=== PATIENT | female | born 1995 | race Caucasian/White ===

== ENCOUNTER 2023-04-02 12:25 | Outpatient (OUT) | payer MEDICAID, SELFPAY ==
--- NOTE | 2023-04-02 12:30 | US_ITS ---
[address] [address] Patient Name: BETTY RAMIREZ MRN: [id number] date: 1995 Sex: F Assigned Patient Location: US Current Patient Location: US Accession/Order Number: [id number] Exam Date: 04/02/2023 12:31 Report Date: 04/02/2023 15:32 At the request of: ALEXANDER CONLEY Procedure: US OB transvaginal EXAMINATION: US OB transvaginal HISTORY: MISSED MENSES COMPARISON: No relevant comparison available. FINDINGS: GESTATIONAL SAC: Present and normal appearing. YOLK SAC: Present and normal appearing. POLE: Present and normal appearing. CARDIAC: Present. UTERUS: Normal size and appearance. OVARIES: Right: Normal. Left: Not seen. CERVIX: 3.8 cm in length and closed. CUL-DE-SAC: Normal. OTHER: None. AGE BY LMP: 8 weeks 5 days PETER BY LMP: 11/07/2023 AGE BY US CRL: 8 weeks 2 days PETER BY US CRL: 11/10/2023 US/US OB transvaginal IMPRESSION: 1. Single live intrauterine . (Patient reportedly underwent imaging at another facility on 03/22/2023 with suspected twin .) Electronically authenticated by: RUBEN GALE Date: 04/02/2023 15:32
== END 2023-04-02 12:26 | disposition home or self-care (01) ==
LOC: US 12:26
PROVIDERS: Visit Provider Obstetrics & Gynecology
DX: Z34.91 Encounter for supervision of normal pregnancy, unspecified, first trimester (principal); N92.6 Irregular menstruation, unspecified
CPT/HCPCS: 76817

== ENCOUNTER 2023-04-30 09:01 | Outpatient (OUT) | payer MEDICAID, SELFPAY ==
[2023-04-30 10:08] LABS: Estimated Average Glucose 91 mg/dL; Glycohemoglobin A1C 4.8 % (4.5-6.2)
[2023-04-30 10:24] LABS: Basophils Percent Auto 0.5 % (0.2-2.0); Eosinophils Percent Auto 0.5 % (0.9-7.0); Hematocrit 37.4 % (36.0-48.0); Hemoglobin 13.1 g/dL (12.0-16.0); Immature Granulocytes Abs Auto 0.02 10^3/uL (0.00-0.03); Immature Granulocytes Pct Auto 0.3 % (0.0-0.5); Lymphocytes Absolute Auto 1.4 10^3/uL (1.2-3.8); Lymphocytes Percent Auto 20.5 % (20.5-60.0); Mean Corpuscular Hemoglobin 30.5 pg (26.7-34.0); Mean Corpuscular Volume 87.2 fL (81.0-99.0); Monocytes Absolute Auto 0.6 10^3/uL (0.3-0.8); Monocytes Percent Auto 9.3 % (1.7-12.0); Neutrophils Absolute Auto 4.6 10^3/uL (1.4-6.5); Neutrophils Percent Auto 68.9 % (43.0-75.0); Platelet Count 245 10^3/uL (150-450); Red Blood Count 4.29 10^6/uL (4.20-5.40); Red Cell Distribution Width 13.6 % (11.0-15.0); White Blood Count 6.6 10^3/uL (4.0-11.0)
[2023-04-30 10:40] LABS: Thyroid Stimulating Hormone 0.468 uIU/mL (0.358-3.740)
[2023-05-01 06:08] LABS: HBsAg Screen Negative (Negative); HCV Ab Non Reactive (Non Reactive); HIV Ab/p24 Ag Screen Non Reactive (Non Reactive)
[2023-05-01 10:09] LABS: Rapid Plasma Reagin, Quant Non Reactive titer (NonRea<1:1)
== END 2023-04-30 09:02 | disposition home or self-care (01) ==
LOC: LAB 09:07
PROVIDERS: Visit Provider Obstetrics & Gynecology
DX: Z34.80 Encounter for supervision of other normal pregnancy, unspecified trimester (principal); Z3A.00 Weeks of gestation of pregnancy not specified
CPT/HCPCS: 36415; 83036; 84443; 85025; 86592; 86762; 86803; 86850; 86900; 86901; 87086; 87340; 87389

== ENCOUNTER 2023-05-28 19:17 | Outpatient (REF) | payer MEDICAID, SELFPAY ==
[2023-06-04 13:08] LABS: Age Gdln ACOG Testing Note (.); IGP, rfx Aptima HPV ASCU Note (.)
== END 2023-05-28 19:18 | disposition home or self-care (01) ==
LOC: LAB 19:17
PROVIDERS: Visit Provider Physician Assistant
DX: Z12.4 Encounter for screening for malignant neoplasm of cervix (principal)
CPT/HCPCS: G0145

== ENCOUNTER 2023-07-02 10:31 | Outpatient (OUT) | payer MEDICAID, SELFPAY ==
--- NOTE | 2023-07-02 10:32 | US_ITS ---
[address] [address] Patient Name: BETTY RAMIREZ MRN: [id number] date: 1995 Sex: F Assigned Patient Location: US Current Patient Location: Accession/Order Number: [id number] Exam Date: 07/02/2023 10:33 Report Date: 07/02/2023 15:12 At the request of: ALEXANDER CONLEY Procedure: US OB cervical length EXAMINATION: US OB anatomy, US OB cervical length HISTORY: ANATOMY COMPARISON: No relevant comparison available. TECHNIQUE: Transabdominal sonographic examination was performed for obstetrical and evaluation. FINDINGS: Number: 1 Heart Rate: 148.0 bpm H.B. /min Amniotic Fluid Volume: Subjectively normal Placental Location: ANTERIOR with lower margin 1.5 cm from internal os. Cervix Length: 4.1 cm; closed. ANATOMY: Normal Structures -cerebellum, choroid plexus, cisterna magna, lateral cerebral ventricles, orbits, midline falx, hard palate, four-chamber heart, stomach, kidneys, bladder, umbilical cord insertion into abdomen, three-vessel cord, cervical spine, thoracic spine, lumbar spine, sacral spine, right upper extremity, left upper extremity, right lower extremity, left lower extremity. SUBOPTIMALLY SEEN: Cardiac outflow tracts ABNORMALITIES: None BIOMETRY: BPD: 4.6 cm 20 weeks 0 days; < 3% HC: 18.2 cm 20 weeks 4 days; 6% AC: 17.2 cm 22 weeks 1 days; 59% FL: 3.5 cm 21 weeks 1 days ; 23% EFW:432.0 grams; 35% FL/AC: 20.6 FL/BPD: 76.5 HC/AC: 1.1 GESTATIONAL AGE: Age by EDC: 21 weeks 5 days PETER by EDC: 11/07/2023 Age by current US: 21 weeks 0 days PETER by current US: 11/12/2023 US/US OB cervical length IMPRESSION: 1. Single live intrauterine with growth detailed above. 2. Biparietal diameter is < 3rd percentile. Electronically authenticated by: RUBEN GALE Date: 07/02/2023 15:12
--- NOTE | 2023-07-02 10:32 | US_ITS ---
[address] [address] Patient Name: BETTY RAMIREZ MRN: [id number] date: 1995 Sex: F Assigned Patient Location: US Current Patient Location: US Accession/Order Number: [id number] Exam Date: 07/02/2023 10:33 Report Date: 07/02/2023 15:12 At the request of: ALEXANDER CONLEY Procedure: US OB anatomy EXAMINATION: US OB anatomy, US OB cervical length HISTORY: ANATOMY COMPARISON: No relevant comparison available. TECHNIQUE: Transabdominal sonographic examination was performed for obstetrical and evaluation. FINDINGS: Number: 1 Heart Rate: 148.0 bpm H.B. /min Amniotic Fluid Volume: Subjectively normal Placental Location: ANTERIOR with lower margin 1.5 cm from internal os. Cervix Length: 4.1 cm; closed. ANATOMY: Normal Structures -cerebellum, choroid plexus, cisterna magna, lateral cerebral ventricles, orbits, midline falx, hard palate, four-chamber heart, stomach, kidneys, bladder, umbilical cord insertion into abdomen, three-vessel cord, cervical spine, thoracic spine, lumbar spine, sacral spine, right upper extremity, left upper extremity, right lower extremity, left lower extremity. SUBOPTIMALLY SEEN: Cardiac outflow tracts ABNORMALITIES: None BIOMETRY: BPD: 4.6 cm 20 weeks 0 days; < 3% HC: 18.2 cm 20 weeks 4 days; 6% AC: 17.2 cm 22 weeks 1 days; 59% FL: 3.5 cm 21 weeks 1 days ; 23% EFW:432.0 grams; 35% FL/AC: 20.6 FL/BPD: 76.5 HC/AC: 1.1 GESTATIONAL AGE: Age by EDC: 21 weeks 5 days PETER by EDC: 11/07/2023 Age by current US: 21 weeks 0 days PETER by current US: 11/12/2023 US/US OB anatomy IMPRESSION: 1. Single live intrauterine with growth detailed above. 2. Biparietal diameter is < 3rd percentile. Electronically authenticated by: RUBEN GALE Date: 07/02/2023 15:12
--- OUTSIDE RECORDS SUMMARY | 2023-07-02 10:42 | XMS_ITS | CCD ---
Author Name Unknown Address [address] [place] [address] Organization [facility] Care Team Providers Care Logistics Support Name Role Phone SHAHNAZ CORONA Admitting Unavailable SHAHNAZ CORONA Attending Unavailable SHAHNAZ CORONA Consulting Unavailable SHAHNAZ CORONA Admitting Unavailable SHAHNAZ CORONA Attending Unavailable MISC, DOCTOR Primary Care Unavailable LEFTY GALE Consulting Unavailable SHAHNAZ CORONA Consulting Unavailable SHAHNAZ CORONA Admitting Unavailable SHAHNAZ CORONA Attending Unavailable MISC, DOCTOR Primary Care Unavailable SHAHNAZ CORONA Consulting Unavailable SHAHNAZ CORONA Admitting Unavailable SHAHNAZ CORONA Attending Unavailable SHAHNAZ CORONA Consulting Unavailable SHAHNAZ CORONA Admitting Unavailable SHAHNAZ CORONA Attending Unavailable VANCE DING V Consulting Unavailable SHAHNAZ CORONA Consulting Unavailable SHAHNAZ CORONA Admitting Unavailable SHAHNAZ CORONA Attending Unavailable REQUEST, NONE LISTED Primary Care Unavailable SHAHNAZ CORONA Consulting Unavailable CAREN WHARTON Admitting Unavailable CAREN WHARTON Attending Unavailable SHAHNAZ CORONA Primary Care Unavailable CAREN WHARTON Consulting Unavailable CAREN WHARTON Admitting Unavailable CAREN WHARTON Attending Unavailable CAREN WHARTON Consulting Unavailable SHAHNAZ CORONA Admitting Unavailable SHAHNAZ CORONA Attending Unavailable SHAHNAZ CORONA Consulting Unavailable SHAHNAZ CORONA Admitting Unavailable SHAHNAZ CORONA Attending Unavailable SHAHNAZ CORONA Primary Care Unavailable LEFTY GALE Consulting Unavailable SHAHNAZ CORONA Consulting Unavailable SHAHNAZ CORONA Admitting Unavailable SHAHNAZ CORONA Attending Unavailable SHAHNAZ CORONA Consulting Unavailable FARRUKH PARK Unavailable SHAHNAZ CORONA Admitting Unavailable SHAHNAZ CORONA Attending Unavailable SHAHNAZ CORONA Consulting Unavailable SHAHNAZ CORONA Attending Unavailable ALEXANDER CONLEY Admitting Unavailable VANCE DING V Consulting Unavailable ALEXANDER CONLEY Consulting Unavailable SHAHNAZ CORONA Consulting Unavailable CAREN WHARTON Admitting Unavailable CAREN WHARTON Attending Unavailable CAREN WHARTON Consulting Unavailable LEFTY GALE Consulting Unavailable SHAHNAZ CORONA Consulting Unavailable ALEXANDER CONLEY Admitting Unavailable ALEXANDER CONLEY Attending Unavailable ALEXANDER CONLEY Consulting Unavailable SHAHNAZ CORONA Consulting Unavailable DOTAMARA CARMONA Consulting Unavailable SHAHNAZ CORONA Procedure Practitioner Unavailab le DO, TAMARA Brannon Procedure Practitioner Unavailab le CHLOE, SHAHNAZ Admitting Unavailable SHAHNAZ CORONA Attending Unavailable SHAHNAZ CORONA Admitting Unavailable SHAHNAZ CORONA Attending Unavailable SHAHNAZ CORONA Consulting Unavailable JOSE MARTEL Attending Unavailable Blunt, Caden M Primary Care Unavailable Frank, Deven Jacob Attending Unavailab le Frank, Deven Jacob Admitting Unavailab Armando Browning Attending Unavailable Armando Nieto Admitting Unavailable Blunt, Caden M Primary Care Unavailable Allergies Allergy Classification Reported Allergen(s) Allergy Type Date of Onset Reaction(s) Facility (1 source) No Known Medication Allergies; Translations: [No Known Medication Allergies] Propensity to adverse reactions to drug (disorder) [facility] Repository Problems Active Problems Problem Classification Problem Date Documented Da te Episodic/Chronic Anxiety disorders (1 source) Anxiety disorder, unspecified; Translations: [ANXIETY DISORDER UNSPECIFIED] Onset: 04-19-2020 Chronic Blindness and vision defects (1 source) Other visual disturbances; Translations: [OTHER VISUAL DISTURBANCES] Onset: 02-28-2020 Episodic Hypertension complicating ; childbirth and the puerperium (7 sources) Unspecified pre-existing hypertension complicating , third trimester; Translations: [Unspecified pre-existing hypertension complicating childbirth] Onset: 03-08-2020 Chronic Immunizations and screening for infectious disease (8 sources) Encounter for screening for other viral diseases; Translations: [Contact with and (suspected) exposure to other viral communicable diseases] Onset: 02-22-2020 Episodic Menstrual disorders (4 sources) Secondary amenorrhea; Translations: [SECONDARY AMENORRHEA] Onset: 09-02-2019 Chronic Mood disorders (1 source) Major depressive disorder, single episode, unspecified; Translations: [SILVINA DEPRESS D/O SINGLE EPIS UNS] Onset: 04-19-2020 Nonspecific chest pain (1 source) Other chest pain; Translations: [OTHER CHEST PAIN] Onset: 03-08-2020 Episodic OB-related trauma to perineum and vulva (1 source) First degree perineal laceration during delivery; Translations: [FIRST DEG PERINEAL LAC DUR DELIV] Onset: 04-19-2020 Episodic Other complications of ; puerperium affecting management of mother (1 source) Obesity complicating childbirth; Translations: [OBESITY COMPLICATING CHILDBIRTH] Onset: 04-19-2020 Chronic Other complications of ; puerperium affecting management of mother (1 source) Other mental disorders complicating childbirth; Translations: [[facility] MENTAL D/O COMP CHILDBIRTH] Onset: 04-19-2020 Episodic Other complications of (4 sources) Other specified related conditions, third trimester; Translations: [OT SPEC PREG RELATED COND 3RD TRI] Onset: 02-19-2020 Episodic Other lower respiratory disease (1 source) Shortness of breath; Translations: [SHORTNESS OF BREATH] Onset: 02-28-2020 Episodic Other nervous system disorders (1 source) Paresthesia of skin; Translations: [PARESTHESIA OF SKIN] Onset: 02-28-2020 Episodic Other nervous system disorders (1 source) Anesthesia of skin; Translations: [ANESTHESIA OF SKIN] Onset: 03-08-2020 Episodic Other nutritional; endocrine; and metabolic disorders (1 source) Obesity, unspecified; Translations: [OBESITY UNSPECIFIED] Onset: 04-19-2020 Chronic Other and delivery including normal (10 sources) Encounter for supervision of normal , unspecified, third trimester; Translations: [Encounter for supervision of normal , unspecified, second trimester] Onset: 09-09-2019 Episodic Residual codes; unclassified (1 source) 37 weeks gestation of ; Translations: [37 WEEKS GESTATION OF ] Onset: 04-09-2020 Residual codes; unclassified (1 source) 36 weeks gestation of ; Translations: [36 WEEKS GESTATION OF ] Onset: 04-01-2020 Residual codes; unclassified (1 source) 39 weeks gestation of ; Translations: [39 WEEKS GESTATION OF ] Onset: 04-19-2020 Residual codes; unclassified (1 source) 24 weeks gestation of ; Translations: [24 WEEKS GESTATION OF ] Onset: 01-08-2020 Residual codes; unclassified (1 source) 31 weeks gestation of ; Translations: [31 WEEKS GESTATION OF ] Onset: 03-08-2020 Residual codes; unclassified (1 source) 35 weeks gestation of ; Translations: [35 WEEKS GESTATION OF ] Onset: 03-21-2020 Past or Other Problems Problem Classification Problem Date Documented Da te Episodic/Chronic Other complications of (4 sources) Supervision of other high risk pregnancies, unspecified trimester; Translations: [SUP OTH HIGH RISK UNS TRI] Onset: 09-05-2019 Episodic Other screening for suspected conditions (not mental disorders or infectious disease) (4 sources) Encounter for screening for malignant neoplasm of cervix; Translations: [ENC SCREENING MALIG NEOPLASM CERV] Onset: 10-03-2019 Episodic Results Test Name Value Interpretation Reference Range Facility Coding Summaryon 06-30-2023 Coding Summary HTMLBase 64 UhsunjxpMFf7mRs+PGhlYW Q+XC2XWCDpC98tqNCtxL3b D3DIZOrZVrjvAHKJKHtMSn BcsfYyXL6zfJBfPGZg IC8+VN7vCDKrHfutsACuq9 Q3rVX2H72ccd5gIRwmkYB2 CNUxOpWkauwzd2okjJn5UZ cuNmluOyBt XYOiaO32UII7bK74Zw72dR CpeYAft3ysdHw2TpEwNAEk LBP7xIehJYbji4DaWUSuU0 3vwUIzv8V9 DLHdbAckdPUeMmQjjYP2uU 5oFYsnjpksa2qruzewVkn3 pq40nBKgy3L4oCI7P9Ybyx B9JBJupEFt PowxzRPUkE1zgvotn0lmoo trNrEnSROwHGg3RQj8OFUc aIobBuMxBP02ILD8VUPlnj CrL6HnTRIk gFqdNdW4g0D6Sn3OK5HMGo tdB2HDJCGQUCbkeDR+PC90 od22F1YrHqevLjc8VSQqXV Z7iVN8jX1r NFAhXBbmv8D3jXN6N5Vevw Zztc1hh8yiFIUyURwgN61u sYHll4F3CNWtcHY7KPWstE qhNlOsiB84 Oyc+HQAktKdbh3NfSooeo8 gac7vbjCp4NubdTBCnlgXa fSwsKCP1g9NkDq5fBDVctO N7bVC3oZ3e JyFnOlB9WAamW778IiXwqJ NuKropT87aH9VcnGY+PHRy Lqr6ZBUfxHowIJ1iQ4YgOK RpbmctbGVm rIfrSH4yCTMdvcvuNOFjlY 0fFEFgB6d0GdTxVaM2LVdr I8XkFRSbyrkwGj39lO8yIp BqSuI1ULbo U6WeukS8TPMgeIDlBQuxGN J1O70lb6Z8CTOpMBBrUJW6 pHR7rP5xdZqwkenxtRKazB sgdmVydGlj WOkgDParF654HXYmnVicZh NvZGluZyBEYXRlOiAgMTIv MTkvMjAyMzwvdGQ+PHRkIH A7cXplNUJg nYPxVEogTp4xwOucaYmqDW 2eNRDbcgvxHXEbaH2kTUEv nEQrkTljGT1tKINnpwhmq2 22EdPqMKJ9 NYPtrGXkT4GfkE6kSqPvSL VpBUJmO4JmxZXqAXuvB944 KUkiSaT9HIFaoeJbV5NwEM FsaWduOiB0 m2J9Bk7Fp4CtohvnH0EoxY RtLgElAfwkFOc2F9RaBruv dHI+UH18CGAaGQ13JWd1OU I2vFmaLKnf MXWnA0ZchG6xSyQxEUWnIH RkOyc+PHRhYmxlIHdpZHRo PWjaBYHoDmJkwMzoTW7sFl 9yZGVyLWNv oAotmDPqOxAwr2zhANEvJN blTH1odDorK0MhdEK9UKSl o0n1Gp80N06hT2YunGH+PG RhtAS0wBZ4 fC5zWgAdPvH2CPcxQ544Gc BqmZHhUhnyf4exy8xteOl5 LcW1SWQzxgVykMfmJRW2h4 NgJy34W51e IHdpZHRoPSIxNSUiIHZhbG tibr9luD4uFq8+PGNvbCB3 vNP0hT5zNmQlAsL2FVgeI8 49InRvcCIv Ldvku3bvy5klfDf5IyPzRQ IofiPkeFtiKDC6k3JjGk68 E1LryErej0CwJep1ar88qU Auv3S2xRX7 M7FaEMJtwjrgwOBlmJqfKK 7fPWUhhponVYJyxH4dVDSx R0h9UiEtCbX1LLmdS4Ajce Q7BFEdpJCh KPZpkPRFjC8lfbcxk7visz xyClZxQCVfPIk4DHb3QFNl iZzrRhOjXHX7NlL2WMH9oX DfiV1idWsu jvaicO3oUlb+DMN8dOZxoR CQGN1eSxjwkQZ+PHRkIHN0 eUdaCUhqZCChhO1tPNCpM1 f7GkAzGxM9 ETcfJ0SzrqG7ZGJqeFJrCX HgsBJNtS6bsvuqx5wgjolx YoOpMSZwFXo1RLb9NAHteU duOiBsZWZ0 DdA5NBO5oWPqyT2reYzmys yekE1wGoh+QmlydGggRGF0 FSe3Z4EuEwv3AZNrbPdwVC 0ncGFkZGlu Tc2dyZpfyEimDU5gOGHtkp cld399QsCgk3saMYGbjPNr AFdmMQP4U21vy0H5LFBbYU NrLOX0rJQ3 dX2pgLhaepzwdSHhuErdwn VerYvdORtvMSmsD717RQRu sSgkIwOaKGw6Q6CoZnj1NK LpwUyuJY4q vNBiDDreWj0qrRhqsMjgLD 9aUTYmaguak883LhZgz8qb GXLiuHUaGQrfGNS1D52md2 D2IXMpFKRf KCV2mHH6tJ1fhNgolupuxZ VmdDsgdmVydGljYWwtYWxp M780FIYqwGonKlWseHy3R2 YyAjy9BMFy aZcfGF2ruCKxYPfqRn3fhY xewGjbDS4jECWyldnbl899 QvJbv2ofLUSpdBMlDVjmND U1G44lo6D2 BVBvEUKdJJN9zXJ3dT8elB lnbjogbGVmdDsgdmVydGlj RIkyHOizB387DPLkxXkcEj BhdGllbnQg ZIzoAKp9B8GxCnbxvHP+PC 17YGHpEU71fELqzOPxb9oj bJk2WrVuBFOcGFE4cMasDK zms3CqRFZl R31jeMPbq2H0FYDzqViufG TfUgWwhVA8sR5eRMzmrbch n4rlnrywKxxgd0jlvn33aS 60B18nIPad ZHRoPSIzMCUiIHZhbGlnbj 6mdH3gNq8+UMSipSM1fIZ9 kF9uTMZdClZ9FAbzE155Ua RvcCIvPjxj k5nsn6kbwEy2GcK8TJBaqt QfzObjBLR5a9WnBc04F73m IHdpZHRoPSIyMCUiIHZhbG aume4cwU2w Ii8+CNFaaEU0yYO1tJ0fIi EvGxS3JFwbM934TdKqoFGx NzajG27vJ9UbnOX+PHRyPj h6CESgaNfd LA2lxWFjYPvyIw1jMBV0Jb FkQdNiGCuzN5RuDDXsdbkh wyhtkYQ2TPZsYEGjqA47Ne 9udDogMTBw qZMNeF3uhfmua5aubsymJu LxAPBsJZx8MXr3IKFihKvb KbIdBBX7IyL8ZNS1yHUkyF 1hbGlnbjog iI6eG0ImIZAfctssPr05xV 6lJaWcMcI7XWaoJwf+V0FH GeRNLGANLJNJIX1MAQBMLr wvdGQ+PHRk SIV7bQbbLTfdVZPxrY1eMD NsO7i0YtYeUyP0WRfiB5Jm TMZwxjljSl92vT5zEjKwQz U2ZLamW9Sl rjG5LZTlkHKdHHwpOBZ9O0 5tn3T7KGSdZWOrJXY4iYQ0 cB3usYerctdpzSPolUmqhg VydGljYWwt TCaeU627IGQkeAijOfYiQk F7RwO0MHk5D3AtOip6CFEj iAloQF5vvKSsSEsgVe1xwS grhWifBW8o UYJtjqepKWWgiK3pJNZntX SqhWilYO6yOCWxaitor345 ByRmRAD7MQUroIJqN9BhwT 9yOiAjMDAw CKYjG0KwaIQpMBqxQ213AW gbYnF4HDEzzeDbE4DbHSMe vUyoHvX9k3T0Yz2pNTSKVF FyczwvdGQ+ GKNjSRG1dSnoFCumPURahX 2eBRRxJ9k8UnTqUbZ4PYck H5JiJHHmvqmxLd33hR8sEb NaRiL5IMmz Q2BdvyU8XPEzrMYyBLjoWN K8B63ea1S2MCXkWNVqIMK0 iBM4rZ2naLdwafovxHMylV sgdmVydGlj YNvjZQrpX202IOLluAlhSp ZFTUFMRTwvdGQ+PHRkIHN0 xDiqLIjzGLUvdA2uFPAdE7 t2DtYqWxZ6 KFzeF7IpDGGebzrdVq70uS 6aLjYcEdR8QNfrE3UakmX0 LJCthZIgEVshALX1A74ku0 G8UAUoMWHo RHG6vGL5dX8jcVilwyevmG VmdDsgdmVydGljYWwtYWxp K024TCJwkYtuPzFuQWHzDO 5jeTwvdGQ+ ON09yl70U8XdWuxwVdq2YP PrVIH6nZM5gP6lWBEsOThz u9P0wLG8P2TrloSyen2lj7 xsYXBzZTog B05xvWLtg2T2GEEptAL4VT QoyPthJaWdiI23Tjb+PGNv oGisc7DbSphio2lzj6thxV a5XkMhZPJp cdZppBltCPE5t4BjIh73P7 9sIHdpZHRoPSIzMCUiIHZh zZpace0rwQ3bIu9+PGNvbC C1cPF5aQ9j BiGeEsP4STcoP679VbRijF JgZbbmy5eml4zpnGd5IbHn GEYotiEooRsyDRW6d5JsAg 92J3WosDjw j2GoDpk2fj64bVEqp1C6vM L4D3KcMNIgtvkilMLvoDfp PL1hTLQlsurhJONhkP7bUG OgD0l3JaBu LhS1NDlsB4GimhA3SYMzaN PhRAOdqFDLbN1mvivlx8in mvkbAgBrLOXgLTx1VUj0TZ FsaWduOiBs MEF9AnV9TOZ9nJCcgV0vmL gnadwguY5hQzz+FAp4k1pv dVUxED5reZN3PB39EL02cK Mwx8U8mQM4 U0ZxIIUcliiarprytFE0JF QvNGTylN24Pu9evUsbSy0n UMOhQCQ7OVFilUMdC1NuvK 9yOiAjMDAw DTEhI4GlsVDyIDqvS984EA onCmQ0HDOqxkAsO4HsSMPw dHmvGsN8y1J6Wa1LKA00DU 49ZA14rGTc x5I3jWM4L5DxTVMzzvxfbv kfmOB4PDQeJZKkoI44Av4v aLeqXv4nVZUdJCK9XADgfY IxV6JbsX1c DgHxJALhQKRzM8NxoAOoPN yiZ773LEgxNnS9RGHsmkWk L2VkVFFqdLwqAsJ0u8G1St 4KQh81LE83 VY36oYNxo6S5iPJ6O3CqXF EylqnyxqxbrIX2SLDoQCUu lP67Zu5hrKrqDj9yGZWoBJ Q8DJBynDOu U2NedY9yLmBzVBJwEULgB5 MowJVtWJkhT136YKyjKfJ5 IWRrxsHqU2TfVTWmdHonNu Y5q1K5Si4T RRdkmcb1C0RfXrlvcAA+PC 00VTIgBX87pHCnmYTst6rx kUm5AwDuXNXyUPV7pRbvBG saf5FcXQZw Y29 (more content not included)... Normal [facility] C Throaton 06-25-2023 C Throat Ordered by Vira. Normal throat sierra isolated No pathogens isolated [facility] Comment on above: Performed By: #### 7 [id number] ####[facility] (DEFAULT)[address] [place] [address] .QC SARS-CoV-2 (COVID-19)/Fl u/RSV (GeneXpert)on 06-23-2023 Internal Control Pass Normal [facility] Comment on above: Order Comment: Order ed by Vira.[[email or web address]] Performed By: #### 7 [id number] ####[facility] (DEFAULT)[address] [place] [id number] COVID/Flu/RSV (GeneXpert)on 06-23-2023 Flu A (GXpert COVFLURSV) Negative Normal Negative [facility] Comment on above: Performed By: #### 7 [id number] ####[facility] (DEFAULT)[address] [place] [id number] Flu B (GXpert COVFLURSV) Negative Normal Negative [facility] Comment on above: Performed By: #### 7 [id number] ####[facility] (DEFAULT)[address] [place] [address] RSV (GXpert COVFLURSV) Negative Normal Negative [facility] Comment on above: Performed By: #### 7 [id number] ####[facility] (DEFAULT)[address] [place] [address] SARS-CoV-2 (COVID-19) RNA MAYCO+probe Ql (Unsp spec) Negative Normal Negative [facility] Comment on above: Result Comment: Perf ormed by PCR methodology. Performed By: #### 7 [id number] ####[facility] (DEFAULT)[address] [place] [id number] ED Clinical Summaryon 2022 ED Clinical Summary [facility] Emergency Department [address] [place] [address] ED Clinical Summary PERSON INFORMATION Name: BETTY RAMIREZ Age: 27 Years Sex: FEMALE : 1995 MRN: Acct#: Visit Reason: Sinus Pain/Congestion; Cough; SORE THROAT, CONGESTION, VOMITING Arrival: 06/23/2023 09:52:37 Discharge: 06/23/2023 11:16:00 LOS: 000 01:24 Check In: 06/23/2023 09:52:37 Checkout:06/23/2023 11:16:00 Address: [facility] [address] [address] PCP: Caden Lauren MD PROVIDER INFORMATION Provider Role Assigned Unassigned Deven Marie DO ED Provider 06/23/2023 09:55:34 Nestor Wilson [employer] MANAGER Nurse 06/23/2023 10:25:25 VITALS INFORMATION Vital Sign Triage Latest Temperature Tympanic Temperature Temporal Artery Pulse Rate 107 bpm 107 bpm O2 Sat Respiratory Rate 18 br/min 18 br/min Blood Pressure /80 mmHg /80 mmHg MEDICAL INFORMATION Medications Given: Allergy Information: No Known Medication Allergies PHYSICIAN DOCUMENTATION Patient: BETTY RAMIREZ Age: 27 years Sex: FEMALE : 1995 Associated Diagnoses: Acute sinusitis Author: Deven Marie DO Basic Information Additional information: Chief Complaint from Nursing Triage Note : Chief Complaint 06/23/2023 10:19 EST Chief Complaint c/o cough and congestion since last . . History of Present Illness 27-year-old female to the emergency department chief complaint of cough congestion sore throat runny nose x 5 days. Patient states it is settling into her sinuses. Patient is approximately 20 weeks . Children being seen for similar. Review of Systems Constitutional symptoms: Negative except as documented in HPI. Skin symptoms: Negative except as documented in HPI. Eye symptoms: Negative except as documented in HPI. ENMT symptoms: Sore throat, nasal congestion, sinus pain. Respiratory symptoms: Cough, No shortness of breath, Cardiovascular symptoms: No chest pain, Gastrointestinal symptoms: Negative except as documented in HPI. Genitourinary symptoms: Negative except as documented in HPI. Musculoskeletal symptoms: Negative except as documented in HPI. Neurologic symptoms: Negative except as documented in HPI. Health Status Allergies: Allergic Reactions (Selected) No Known Medication Allergies. Medications: (Selected) Documented Medications Documented [place]isovi FE 08/01 oral tablet: 0 Refill(s) Multivitamins: 1, PO, Daily, 0 Refill(s). Past Medical/ Family/ Social History Medical history: Resolved Superficial laceration of scalp ([id number]): Resolved. Acute laryngopharyngitis ([id number]): Resolved.. Surgical history: No active procedure history items have been selected or recorded.. Family history: No family history items have been selected or recorded.. Social history: Social & Psychosocial Habits Alcohol 04/25/2019 Alcohol Use: Never 03/21/2023 Alcohol Use: Never Substance Use 04/25/2019 Substance use: Never 03/21/2023 Substance use: Never Tobacco 04/25/2019 Smoking tobacco use: Never (less than 100 in l 03/21/2023 Smoking tobacco use: Never tobacco user Electronic Cigarette/Vaping 04/25/2019 Electronic Cigarette Use: Never 03/21/2023 Electronic Cigarette Use: Never . Problem list: Active Problems (1) . Physical Examination Vital Signs Vital Signs 06/23/2023 10:19 EST Temperature Oral 36.9 DegC Peripheral Pulse Rate 107 bpm HI Respiratory Rate 18 br/min Systolic Blood Pressure 109 mmHg Diastolic Blood Pressure 80 mmHg Oxygen Therapy Room air . Measurements 06/23/2023 10:19 EST Height 149 cm Weight 64 kg Weight Dosing 64.000 kg Body Mass Index Measured 28.83 kg/m2 . General: Alert, no acute distress. Skin: Warm, dry. Head: Normocephalic, atraumatic. Neck: Supple. Eye: Pupils are equal, round and reactive to light, normal conjunctiva. Ears, nose, mouth and throat: Clear effusions bilateral TMs. Oropharynx mildly erythematous no edema no exudates no asymmetry. Tender to palpation over maxillary sinuses.. Cardiovascular: Regular rate and rhythm, No murmur. Respiratory: Lungs are clear to auscultation, respirations are non-labored. Musculoskeletal: No swelling, no deformity. Chest wall Gastrointestinal: Nontender, Non distended, Patient . Neurological: Alert and oriented to person, place, time, and situation, normal speech observed. Lymphatics: No lymphadenopathy. Psychiatric: Cooperative. Medical Decision Making Differential Diagnosis: Upper respiratory infection, viral syndrome, sinusitis, bronchitis, otitis media, COVID influenza. Results review: Lab results : Lab Flowsheet 06/23/2023 10:13 EST SARS-CoV-2(Covid19)PCR (GXpert COVFLURSV) Negative Streptococcus A Negative Flu A (GXpert COVFLURSV) Negative Flu B (GXpert COVFLURSV) Negative RSV (GXpert COVFLURSV) Negative . Reexamination/ Reevaluation 27-year (more content not included)... Normal [facility] ED Note - Physicianon 2022 ED Note - Physician Patient: BETTY RAMRIEZ Age: 27 years Sex: FEMALE : 1995 Associated Diagnoses: Acute sinusitis Author: Deven Marie DO Basic Information Additional information: Chief Complaint from Nursing Triage Note : Chief Complaint 06/23/2023 10:19 EST Chief Complaint c/o cough and congestion since last . . History of Present Illness 27-year-old female to the emergency department chief complaint of cough congestion sore throat runny nose x 5 days. Patient states it is settling into her sinuses. Patient is approximately 20 weeks . Children being seen for similar. Review of Systems Constitutional symptoms: Negative except as documented in HPI. Skin symptoms: Negative except as documented in HPI. Eye symptoms: Negative except as documented in HPI. ENMT symptoms: Sore throat, nasal congestion, sinus pain. Respiratory symptoms: Cough, No shortness of breath, Cardiovascular symptoms: No chest pain, Gastrointestinal symptoms: Negative except as documented in HPI. Genitourinary symptoms: Negative except as documented in HPI. Musculoskeletal symptoms: Negative except as documented in HPI. Neurologic symptoms: Negative except as documented in HPI. Health Status Allergies: Allergic Reactions (Selected) No Known Medication Allergies. Medications: (Selected) Documented Medications Documented [place]isovi FE 08/01 oral tablet: 0 Refill(s) Multivitamins: 1, PO, Daily, 0 Refill(s). Past Medical/ Family/ Social History Medical history: Resolved Superficial laceration of scalp ([id number]): Resolved. Acute laryngopharyngitis ([id number]): Resolved.. Surgical history: No active procedure history items have been selected or recorded.. Family history: No family history items have been selected or recorded.. Social history: Social & Psychosocial Habits Alcohol 04/25/2019 Alcohol Use: Never 03/21/2023 Alcohol Use: Never Substance Use 04/25/2019 Substance use: Never 03/21/2023 Substance use: Never Tobacco 04/25/2019 Smoking tobacco use: Never (less than 100 in l 03/21/2023 Smoking tobacco use: Never tobacco user Electronic Cigarette/Vaping 04/25/2019 Electronic Cigarette Use: Never 03/21/2023 Electronic Cigarette Use: Never . Problem list: Active Problems (1) . Physical Examination Vital Signs Vital Signs 06/23/2023 10:19 EST Temperature Oral 36.9 DegC Peripheral Pulse Rate 107 bpm HI Respiratory Rate 18 br/min Systolic Blood Pressure 109 mmHg Diastolic Blood Pressure 80 mmHg Oxygen Therapy Room air . Measurements 06/23/2023 10:19 EST Height 149 cm Weight 64 kg Weight Dosing 64.000 kg Body Mass Index Measured 28.83 kg/m2 . General: Alert, no acute distress. Skin: Warm, dry. Head: Normocephalic, atraumatic. Neck: Supple. Eye: Pupils are equal, round and reactive to light, normal conjunctiva. Ears, nose, mouth and throat: Clear effusions bilateral TMs. Oropharynx mildly erythematous no edema no exudates no asymmetry. Tender to palpation over maxillary sinuses.. Cardiovascular: Regular rate and rhythm, No murmur. Respiratory: Lungs are clear to auscultation, respirations are non-labored. Musculoskeletal: No swelling, no deformity. Chest wall Gastrointestinal: Nontender, Non distended, Patient . Neurological: Alert and oriented to person, place, time, and situation, normal speech observed. Lymphatics: No lymphadenopathy. Psychiatric: Cooperative. Medical Decision Making Differential Diagnosis: Upper respiratory infection, viral syndrome, sinusitis, bronchitis, otitis media, COVID influenza. Results review: Lab results : Lab Flowsheet 06/23/2023 10:13 EST SARS-CoV-2(Covid19)PCR ([facility] COV[facility]) Negative Streptococcus A Negative Flu A ([facility] COVFLUR[facility]) Negative Flu B ([facility] COVFLUR[facility]) Negative RSV ([facility] COVFLUR[facility]) Negative . Reexamination/ Reevaluation 27-year-old female to the emergency department URI symptoms. Family positive for influenza B. Discussed with patient with her being 20 weeks sick for 5 to 6 days and sinus pressure and congestion we will treat with amoxicillin. Impression and Plan Diagnosis Acute sinusitis ([id number] J01.90, Discharge, Medical) Plan Condition: Improved, Stable. Disposition: Discharged: Time 06/23/2023 10:59:00, to home. Prescriptions: Launch prescriptions Pharmacy: amoxicillin 875 mg oral tablet (Prescribe): 875 mg = 1 tab(s), Oral, BID, for 10 day(s), 20 tab(s), 0 Refill(s). Patient was given the following educational materials: Sinus Infection, Adult, Sinus Infection, Adult. Follow up with: Caden Lauren Within 3 to 5 days Call for follow up appointment Return if symptoms worsen Follow-up in 3 to 5 days unless symptoms are resolving. Counseled: Patient, Family, Regarding diagnosis, Regarding diagnostic results, Regarding treatment plan, Regarding prescription, Patient indicated understanding of instructio (more content not included)... Normal [facility] ED Note-Nursingon 06-23-2023 ED Note-Nursing private vehicle arrival with c/o cough congestion since last with multiple sick contacts at home. lcta. maintains ra saturation. rr even and unlabored. mub146hre. no distress. oriented to call light. s/o and childx2 at bedside. pending swabs Normal [facility] ED Patient Summaryon 023 ED Patient Summary [facility] - Emergency Department [address] [place] [address] PATIENT DISCHARGE INSTRUCTIONS Patient Information Name: BETTY RAMIREZ Age: 27 Years Date of : 1995 Reason For Visit: Sinus Pain/Congestion; Cough; SORE THROAT, CONGESTION, VOMITING Arrival Time: 06/23/2023 09:52:37 Primary Care Physician: Caden Lauren MD Attending Physician: Deven Marie DO Comment: Visit Diagnosis: Diagnoses This Visit Acute sinusitis (J01.90) Cough ([id number]) Sinus Pain/Congestion ([id number]) The Pharmacy at [facility] is open Thursday through Thursday from 9A to 6P and Thursday and Thursday from 9A to 5P Prescription Information: If you have been given a prescription for narcotics, seek immediate medical attention if you have any difficulty breathing or any sudden status changes such as confusion and sleepiness. If you or anyone you know is experiencing suicidal thoughts, mental health, alcohol and/or drug addiction problems; contact the Mental Health & Recovery Board [facility] 02/02 Crisis Hotline -Text 3XVDG ci [phone]. If you received any narcotics, sedation, or any other medication that causes drowsiness for the next 24 hours, unless otherwise directed: ? Do not drive a car. ? Do not operate machinery such as power tools, lawn mowers, drills, sewing machines, or stoves ? Avoid alcoholic beverages and drugs for allergies, nerves, or sleep ? Do not make important personal or business decisions or sign any legal documents With: Address: When: Caden Urbano [facility], [address] [address] [place] [address] Business (1) Within 3 to 5 days Comments: Call for follow up appointment Return if symptoms worsen Follow-up in 3 to 5 days unless symptoms are resolving Medication Information: The exam and treatment you received today in the [facility] Emergency Department were for an urgent problem and are not intended as complete care. It is important for you to follow up with a doctor, nurse practitioner, or physician?s commercial lending assistant for ongoing care. If your symptoms become worse or you do not improve as expected and you are unable to reach your usual health care provider, you should return to the Emergency Department, we are available 24 hours a day. For those patients who have received Radiology results, the interpretation of your X-ray as given to you by our Emergency Department physician is only a preliminary report. The Radiologist will review your films and if there is a change in the diagnosis you will be notified by phone. Please make sure you have provided a working phone number so we can reach you if necessary. In the event that you had a lab culture while you were a patient in the Emergency Department, you will be notified by phone if there is a need to change your antibiotic. Please make sure you have provided a working phone number so we can reach you if necessary. [facility] Emergency Department has provided you with a complete list of medications post discharge. Please inform your principal research economist/provider of your visit and for further instruction on these medications. Any specific questions regarding your chronic medications and dosages should be discussed with your primary care physician(s) and/or pharmacist. New Medications [id number], [address], [place] [id number], [phone] amoxicillin (amoxicillin 875 mg oral tablet) 1 tab(s) Oral (given by mouth) 2 times a day for 10 Days. Refills: 0. Additional medications on your home medication list not specifically addressed. Please contact the ordering physician if you have questions about these medications. ethinyl estradiol-norethindron e (Blisovi FE 08/01 oral tablet) multivitamin, ( Multivitamins) 1 Oral (given by mouth) every day. Visit Information Allergies: Substance Reaction Symptoms Type Comments No Known Medication Allergies Drug Vital Signs: Vitals and Measurements this Visit (last charted value for your 06/23/2023 visit) Vital Signs This Visit Temperature Oral: 36.9 DegC Peripheral Pulse Rate: 107 bpm Respiratory Rate: 18 br/min Systolic Blood Pressure: 109 mmHg Diastolic Blood Pressure: 80 mmHg Oxygen Therapy: Room air Measurements This Visit Height/Length Measured: 149 cm Weight Measured: 64 kg Weight Dosin.000 kg Body Mass Index: 28.83 kg/m2 Problems List: Problem Onset Comments Patient Education Sinus Infection, Adult A sinus infection, also called sinusitis, is inflammation of your sinuses. Sinuses are hollow spaces in the bones around your face. Your sinuses are located: ? Around your eyes. ? In the middle of your forehead. ? Behind your nose. ? In your cheekbones. Mucus normally drains out of your sinuses. W (more content not included)... Normal [facility] Strep Aon 06-23-2023 Strep procedure control Pass Normal [facility] Comment on above: Performed By: #### 7 [id number], [id number], [id number], [id number] ####[facility] (DEFAULT)[address] [place] [address] Streptococcus A Negative Normal Negative [facility] Comment on above: Performed By: #### 7 [id number], [id number], [id number], [id number] ####[facility] (DEFAULT)[address] [place] [address] Coding Summaryon 04-03-2023 Coding Summary [facility] ZmizdowjZOm2cZg+PGhlYW Q+OP4FQJPtN08uhDUcsJ9o I6FTBFwBFiohKENLQOwZCy TpiiVqCQ3qpBHyYMCe IC8+XU9uUJVhFsptsKVem2 Z8hNH3H67evo6sBVmjqEA8 CPHfEbBexuvuy3qnjUg4KT cuNmluOyBt JYFpeD02SAR1uJ21Kn62uK WtrCElp4udcLk6ZzDxPHRx WSU6dBbzJKjwi8OxKWLwD9 5xiRKrr8N2 WUBnvSkvyXCbVxRowPZ3nD 9cKQnphzbqj0jmldybKyo2 bj90gCZcu3J7pFJ0I9Vkqj O9TOUskXDn FtpfiMTDxE1bajusm3zohl sfHoEvJKMgESm9RUr3FTZb iHzeIuQxWU28BQX3KGSdzq CtJ7JmACBh aEhpMmB8d9F9Eh9MH4MMAq uvM3DYCVMXOHdecFY+PC90 jh32R0DuUqzgCho2PTJiQG D7aNV8iF3i LSRdWSwav1L5zFO9Q4Ivgg Ccif3ju0rlGIAkFQqoT33f lKKju0T0WCAnmUR4TUAgdW pqLzOfsP99 Oyc+AUCrqZeve4DhBufqj8 xww6advOd1LunzCJZsbfFo vEskCTV6b3VhHd1sKBHxqP L4rRB9iA0o ErOwDbM2PXumQ828TnDdkF QdYnzyS85dW9FzzIE+PHRy Ruv2LBAxmXanTN3lV5JtRJ RpbmctbGVm vGjlBZ9uTLUnsbbqCIQvkS 4hGRMtV3t6HfQpRrM2TJnd K2GxGGEljdjmJu64dH8iCh FqHgL1AFmn L3NlnhX5YGZuxUTjCArbNQ M6P62il9F3MVDjCRQqBTM4 mZP9hH3oqQnbioohiXShnE sgdmVydGlj VOyaAEfmR524YBMhvEonUi NvZGluZyBEYXRlOiAgMDkv MjIvMjAyMzwvdGQ+PHRkIH C5iGwnTTWf eLZiJSqzXe3yrZfkqZfdZL 9cSXGzdlhrBITrfG7sDWGg aEOqrKfoIN5yTZCxvulsg1 46TxLrCFD4 JQTjmCSqG5WspE9nMjNgUP CiYPTvN7TpxCEiMDwpF954 TJccSuO9ECPbbhIhX3GgFS FsaWduOiB0 o2E0Hs3Ex4MwslimQ8QouG TeHcSkYeieSKn2R7DbVrso dHI+KK06FTMkXA98DGr9IG L5pJxtKWpb AVYiU9OlsS4kOjIjNQFoWL RkOyc+PHRhYmxlIHdpZHRo RAqcRHTrSrPemRjaDX4pGj 9yZGVyLWNv jFjmqMGrGhHxs3urCKRzVT arYV6ckNbrV8PdoAA1JOAw e6a2Nq24L85lD7IvlCG+PG RphLW2vHI6 jC7fGaMxNfA1HNnjN863Gp OhrZBeUhcwr8ypi9wauKk2 RrB9TKPqmeIlpEjrRIC4z0 YbQq36P79s IHdpZHRoPSIxNSUiIHZhbG azin9slC7aFl4+PGNvbCB3 oBQ6tH6zGyWwZqZ5VTxzO7 49InRvcCIv Mlzzp8rdh7vmwBv2FwBnZT IknrGvfXbtBHF0t9XwEt15 I2VbuZyiy6TmDtu1fg16sU Gua3U2kDT7 Y8VlNCVonfkpnCPxsEvwUU 1aUNKxndbrGJDlsK2aPJKq F2g6UoUdDeB7IRzwA6Ogmt R6HPKpmVYe IDVsdQWGlI5usalet7wfpj hfWbMoRSWaKXm1MWa1BOVw hRraXqPlQDH4KfG6VLX0zS LfiA7ybZth gjtooL0aUfx+DTM3eTBzxX WNPA6hRinpkHQ+PHRkIHN0 oCaxLBliAPPjvX5nVIEdK2 f4DiKbIzA5 NUbxL8GnmcG7LRDauHZyOB CqcTUTvC7fztklq2vqkxxo VeSzZGCbLCy1KEb9REDleU duOiBsZWZ0 FeL5SYG0aOAarU6ikIjbrz kfiP6mSea+QmlydGggRGF0 KIs6J9LdNau3QPKquAwlXU 0ncGFkZGlu Ax0zcYpzeTiiCM5zMPStyq wkp678VyIyt8phUYBeqIUh UGagSMY9V20bk1Y5UZNhVC CmOGB2sYW5 yJ0yxKuqtzzrfITpyAszyc JnnDtaFSidVMucC140RFOf qBfoBcRoUYh6Z6ZcWhc0BH AzyIngCO2h pBJeXPlmAt9slFtapWbnZN 0wHFEwgepfc041EmUbi0lx ZWCjtPTxYUcfNIP8L26az2 E4AIMoZXXy RXX7yQX8sL9bqUhpemwekP VmdDsgdmVydGljYWwtYWxp J356IFGybDzcJiCzxEh3C0 KrJmc4QKDf uEsrVJ1ddVIgIDlhMj2hkQ rngPtwJK4aXAJsacalu971 LxVgn5ytXJStxTIdSDpeHC B5C62ur7Q3 IMWiXCIcNYO1cRO5xE9ldI lnbjogbGVmdDsgdmVydGlj BAklQFvkQ312CBEanTxfXu BhdGllbnQg UUjfWZg9E8UiYajktOY+PC 29VWYbGJ22vCKdyNNbt0rw sKi4VpEmSFEnUAN1mJuhTS rmf6NeLCDy V06waTQvo2S2RSBuwArzzJ UyXiHwmSQ3qZ8iYBbvfvsa o4vrfvkqYhckk1dgeq68jX 02E54cYJar ZHRoPSIzMCUiIHZhbGlnbj 4lrZ2zFo0+HHPtvSY2bSJ8 zJ2gBHRxJmH4GMiqJ263Mi RvcCIvPjxj u7vzl3oehGx2AeO1IRIeid ItiGloBBJ5r3GuZb23Q85c IHdpZHRoPSIyMCUiIHZhbG vzgd8jwA6z Ii8+OTUgtSO1zVO9eO5oMq MwHfI2TQfsR972CsNkpZBx HknsJ66qL0LmlJU+PHRyPj n4JAGqpOaa GN7drKKtVQonEi1yZRW3Ba WdDxDtSTfeE0SwIUFlssrt ehmvkMK4NKIdFQMdfO40Ut 9udDogMTBw yCDBkJ2dmouvq6edxpngPz NdURHtPEj3YVx2GUQrcOdt BnOpTMY1WuW3HGY8lFLamI 1hbGlnbjog lW2vW6FnIFCmoazvBu11tU 2hAoIqGyV8ZXjeCra+V0FH SyWKUFDKADKWNE2PWAPYUg wvdGQ+PHRk NDN5eTrsORscEWBftQ8nWP XrI6d3EnDsStY1ZEooP1Gc UZCftpouHn58rY4mLlYiLv E1BCxaP9Tu jyE9MODkrRXaCWreHEO9L6 8fz3L2ZLFwAELtWBY3qBI1 mO3hkEwxjjgbdBGxcUqpjl VydGljYWwt CPsaJ309PWTyuHfhXiItWh G1JrA1ADp4M6HvZgc1JNEh aZruVK0ncOZtBNynVq2yxN yepBsjJB8z RVEdmyxbPLAceK6hJEYdiT SubZsaVR7iESTolcyym996 ZlWdUKN6TYHoqXDnO5EkiT 9yOiAjMDAw NRKeS7DnoPWgQFlqS128LD cqMjF4LFBqsvXoF0AgAUUf sOjgTpB1a3C4Oj0gJYHNMP FyczwvdGQ+ GOOqVTU6cQkoCWnnZIIjaS 0aQBElW0p3GvXeCxV0EJss C9RjFVQtctxxDt03jQ8vDu ClCeK6BGvt O4TwebE5UYPsfMPqGAwxDN M8Z27mc6V8TFGmCBBfOOP4 qYI0mJ5lrUsbffyixAEjjB sgdmVydGlj HRhbQYgoX472FQRliEpwRo ZFTUFMRTwvdGQ+PHRkIHN0 mZleAZgaDOCvbL9zKIMxK5 k6MzAlMaF8 TAxgC2FiIZOwuhbhBq18oP 3hKlExMpB7YPffX7DlwdF8 CDJvwIBmQEnmDXB2K93xj5 H2XZWuRIXv ZKJ1pEV2yB6qcAftbrezaZ VmdDsgdmVydGljYWwtYWxp N435DHAupMbrZcWvRKRvVQ 5jeTwvdGQ+ NN93bn75O1GnMigpOjp7UF WlSVS5pLD1uF9aONFjXWup x6D8lWN5Q8ZzlfPcdq0ae7 xsYXBzZTog P80buZHwc5W9XFNoiJY7VI GpbGphNjMttI15Xqy+PGNv yLxkz6VaGcjqi3cjp1ksyJ i7RrJjVUGr xuSxmEhnRUQ3v6SpWh33D3 9sIHdpZHRoPSIzMCUiIHZh pAxawx7caT6vHa0+PGNvbC F4nHN2iZ7s MiWwQeP2ZAjzU312EbZbwC QhZatsi7thp0unkLw0LdRj JHGyodIfcEfhTJF2z5DeNq 98Y0BnkVjl b8UxBdr6ad65lDIdj3L5yT F8Q4GqUOSjqdpbxSYdkMqp TQ7gEPOvkatgGSUmoL5xUE XsN6m6IeZd AtL0FDtqA8PjvaH3WJHntV SxUUIvlIDGeX3shfecm5qx lljcJsHvPMWjSEq9XGb4GV FsaWduOiBs QIQ7QwV6GQU3dYNgtN0byZ rthbzwuY4wTlr+TOw7l8nc nECgIZ9ljKO5VQ26KC48aT Btj6S7pIA5 F8XaYADvvklkikzbtCJ5RG CkBFXxhQ20Ek3ylGedKy3y XPVkSLX8FJCfkRVyX9FpqT 9yOiAjMDAw WFMiJ5MssWEpPCmfL940GH cyByX8SHKwssDeV3PaFFNs uUnuSeZ4y8Y4Kj7ELP86OI 54OD38yYNo q9L4kWV3N8PpNYBqtqnzkw cjjTS6OHIuWPQvhU22Cs7w yCcqCp0pEIAsUYA2JEQinF QhX5WkmI3q JzOcVPNsHOOnE5CgjVJlIO gcX438LDscPjO8RCVbzvUu T2YyYYFofHwnPdE9f7V1Nc 0IRj15OM77 LA17mNRtt2O1jJM8O2NeMQ KprzewzybmvBV9RKHcALKd tC04Ct8fpNiePv9rEYCsOJ C8ZNTnnDRw V4EuyS6kAtJkQCQbIFHpU3 RzoQTeVGzlA934NZyvOzH2 TFYuitWnH2QoBYDriPtmFl R0m2L6Kb8X IFirfug1K2UwLxpygXW+PC 93ALTgSI83vENhmYFki2uj cFt7NpTaCNUxNCD1lXduCT oai7PfMWKw Y29 (more content not included)... Normal [facility] .Auto Diff 03-21-2023 Auto Rawlins % 10 % Normal 07-24 [facility] Comment on above: Performed By: #### 7 875373, [id number], 3363016, [id number], 8851106469, [id number], [id number] ####[facility] (DEFAULT)[address] [place] [address]4633 Baso Abs# 0.1 x10 Normal 0.0-0.2 [facility] Comment on above: Performed By: #### 7 125627, [id number], 9214673, 9203343468, 9549759587, 3747626974, 96976604 ####[facility] (DEFAULT)[address] [place] [address] 14485 Basophils/100 WBC (Bld) 0.9 % Normal 0.2-2.0 [facility] Comment on above: Performed By: #### 7 191125, [id number], 7397249, 4458530813, 4771046233, 6354468921, 32842372 ####[facility] (DEFAULT)[address] [place] [address] 74821 Eos Abs# 0.0 x10 Normal 0.0-0.4 [facility] Comment on above: Performed By: #### 7 278656, [id number], 2992013, 3827421703, 7311516519, 3941415176, 41872877 ####[facility] (DEFAULT)[address] [place] [address] 14928 Eosinophils/100 WBC (Bld) 0.4 % Low 0.9-4.0 [facility] Comment on above: Performed By: #### 7 856520, [id number], 6470007, 9996278818, 5397543596, 2274617946, 17106753 ####[facility] (DEFAULT)[address] [place] [address] 43121 Lymph Abs# 1.8 x10 Normal 1.3-2.9 [facility] Comment on above: Performed By: #### 7 943211, 7425649975, 8387325, 5677473696, 7152533788, 2054259195, 40683077 ####[facility] (DEFAULT)[address] [place] [address] 78295 Lymphocytes/100 WBC (Bld) 27 % Normal 14-48 [facility] Comment on above: Performed By: #### 7 447934, 2142265367, 3448050, 0295294738, 8124548307, 0569699330, 22783978 ####[facility] (DEFAULT)[address] [place] [address] Rawlins Abs# 0.6 x10 Normal 0.0-0.8 [facility] Comment on above: Performed By: #### 7 272288, 4949605887, 7147871, 2448541959, 3543009510, 9574067301, 73252771 ####[facility] (DEFAULT)[address] [place] [address] Neut Abs# 4.0 x10 Normal 1.5-9.2 [facility] Comment on above: Performed By: #### 7 171437, 3742331156, 3964332, 4418719052, 1271619148, 2803033454, 68029064 ####[facility] (DEFAULT)[address] [place] [address] Neutrophils/100 WBC (Bld) 61 % Normal 44-88 [facility] Comment on above: Performed By: #### 7 419299, 1063425638, 5873563, 8264737398, 2061465212, 2269164714, 09462631 ####[facility] (DEFAULT)[address] [place] [address] ABORhon 03-21-2023 ABO and Rh group Nom (Bld) Hx Check: Found Anti-A: 4+ Anti-B: 0 Anti-D: 4+ DCon: NT A1: 0 B: 4+ ABORh Interp: A POS Invalid Interpretation Code [facility] Comment on above: Performed By: #### 1 [id number], [id number] ####[facility] (DEFAULT)[address] [place] [address] CBC w/ Auto Diffon Erythrocyte distribution width (RBC) [Ratio] 13.4 % Normal 11.5-15.0 [facility] Comment on above: Performed By: #### 7 518914, 9891100103, 4712686, 4000010043, 2595649228, 1081377052, 88223198 ####[facility] (DEFAULT)[address] [place] [address] Hematocrit (Bld) [Volume fraction] 39.9 % Normal 33.7-40.4 [facility] Comment on above: Performed By: #### 7 870648, 8416551967, 3584723, 6023429299, 6827980121, 2601368415, 19296979 ####[facility] (DEFAULT)[address] [place] [address] Hemoglobin (Bld) [Mass/Vol] 13.8 g/dL Normal 11.3-15.9 [facility] Comment on above: Performed By: #### 7 997670, 7827173255, 9159702, 9242440356, 3209544075, 5991870481, 91097124 ####[facility] (DEFAULT)[address] [place] [address] Man Diff? Auto Invalid Interpretation Code [facility] Comment on above: Performed By: #### 7 885865, 2018874425, 2024088, 0585598928, 8908072660, 1896135899, 50778993 ####[facility] (DEFAULT)[address] [place] [address] 52947 MCH (RBC) [Entitic mass] 30 pg Normal 24-34 [facility] Comment on above: Performed By: #### 7 844660, 5527860599, 8193495, 0089316247, 0995271034, 9028672365, 47088081 ####[facility] (DEFAULT)[address] [place] [address] 90313 MCHC (RBC) [Mass/Vol] 34 g/dL Normal 26-37 [facility] Comment on above: Performed By: #### 7 162341, 3232096491, 1594766, 8919455740, 0881954062, 1609270249, 64069332 ####[facility] (DEFAULT)[address] [place] [address] 70454 MCV (RBC) [Entitic vol] 86 fL Normal 81-100 [facility] Comment on above: Performed By: #### 7 630463, 8481968652, 7330052, 8601836268, 4350035800, 7164519864, 99701967 ####[facility] (DEFAULT)[address] [place] [address] 43463 Platelet 245 x10 Normal 138-427 [facility] Comment on above: Performed By: #### 7 607243, 9299411619, 7222488, 7020698319, 4231166061, 8099308588, 68733645 ####[facility] (DEFAULT)[address] [place] [address] 44541 Platelet mean volume (Bld) [Entitic vol] 7.1 fL Normal 6.3-10.2 [facility] Comment on above: Performed By: #### 7 178656, 3727502494, 7922631, 6261937081, 2569205875, 6380030442, 87398514 ####[facility] (DEFAULT)[address] [place] [address] 72659 RBC 4.66 x10 Normal 3.70-5.30 [facility] Comment on above: Performed By: #### 7 268418, 7468603349, 7289518, 4556533816, 1438935411, 4381271963, 24283960 ####[facility] (DEFAULT)[address] [place] [address] 75131 WBC 6.5 x10 Normal 3.5-10.5 [facility] Comment on above: Performed By: #### 7 733210, 2529288561, 4035750, 8623394670, 9592274597, 2255749302, 93394351 ####[facility] (DEFAULT)[address] [place] [address] 21492 CMP Standardon 03-21-2023 eGFR Non AA >60 Invalid Interpretation Code [facility] Comment on above: Performed By: #### 7 640270, 9463501535, 4829545, 3250683493, 1655566163, 8772063185, 96970198 ####[facility] (DEFAULT)[address] [place] [address] 34833 eGFR AA >60 Invalid Interpretation Code [facility] Comment on above: Performed By: #### 7 815129, 8859167616, 7960993, 1912796507, 8758523176, 7582347449, 41146966 ####[facility] (DEFAULT)[address] [place] [address] 93887 Albumin [Mass/Vol] 4.3 g/dL Normal 3.5-5.0 [facility] Comment on above: Performed By: #### 7 515447, 5503257499, 1489590, 5561199704, 4359224741, 1016669664, 32003989 ####[facility] (DEFAULT)[address] [place] [address] 75766 Albumin/Globulin [Mass ratio] 1.2 {ratio} Low 1.4-2.6 [facility] Comment on above: Performed By: #### 7 186085, 6323536347, 0474327, 2893438297, 9595808676, 7630177823, 67698366 ####[facility] (DEFAULT)[address] [place] [address] 62732 Alk Phos 43 IU/L Normal 32-91 [facility] Comment on above: Performed By: #### 7 544754, 1710494069, 1957643, 3319801015, 2859388980, 2261148414, 04386004 ####[facility] (DEFAULT)[address] [place] [address] 07325 ALT [Catalytic activity/Vol] 23.0 U/L Normal 14.0-54.0 [facility] Comment on above: Performed By: #### 7 455039, 2548665389, 8774955, 5052226193, 2788360282, 8500894391, 08677289 ####[facility] (DEFAULT)[address] [place] [address] 39064 Anion gap [Moles/Vol] 9.7 mmol/L Normal 5.0-19.0 [facility] Comment on above: Performed By: #### 7 119302, 1842312323, 9153640, 7561039016, 2926340808, 8677432263, 65869917 ####[facility] (DEFAULT)[address] [place] [address] 96904 AST [Catalytic activity/Vol] 23 U/L Normal 15-41 [facility] Comment on above: Performed By: #### 7 024253, 2627208680, 2327548, 3788431617, 4315210213, 0987023348, 99029384 ####[facility] (DEFAULT)[address] [place] [address] 02880 Bili Total 0.8 mg/dL Normal 0.3-1.2 [facility] Comment on above: Performed By: #### 7 290388, 5711261342, 5375988, 9289879940, 7384825827, [id number], [id number] ####[facility] (DEFAULT)[address] [place] [address] 84703 Calcium [Mass/Vol] 8.8 mg/dL Low 8.9-10.3 [facility] Comment on above: Performed By: #### 7 474338, [id number], 8394070, [id number], [id number], [id number], [id number] ####[facility] (DEFAULT)[address] [place] [address] 35343 Chloride [Moles/Vol] 104 mmol/L Normal 101-111 [facility] Comment on above: Performed By: #### 7 944788, [id number], 0152410, [id number], [id number], [id number], 93423797 ####[facility] (DEFAULT)[address] [place] [address] 14701 CO2 [Moles/Vol] 22 mmol/L Normal 21-32 [facility] Comment on above: Performed By: #### 7 196218, [id number], 8629057, 3389497840, 3477888324, 5397322653, 72268795 ####[facility] (DEFAULT)[address] [place] [address] 21288 Creatinine [Mass/Vol] 0.45 mg/dL Low 0.60-1.30 [facility] Comment on above: Performed By: #### 7 428942, [id number], 8374684, [id number], 6346370000, [id number], [id number] ####[facility] (DEFAULT)[address] [place] [address] 19279 Globulin (S) [Mass/Vol] 3.5 g/dL Normal 1.5-4.3 [facility] Comment on above: Performed By: #### 7 160593, [id number], 3108897, 5225208229, 5242593389, [id number], [id number] ####[facility] (DEFAULT)[address] [place] [address] 25177 Glucose [Mass/Vol] 84.0 mg/dL Normal 74.0-118.0 [facility] Comment on above: Performed By: #### 7 869055, [id number], 4803675, 3176105039, 5140924052, 1918598807, 78092710 ####[facility] (DEFAULT)[address] [place] [address] 28672 Osmolality 262 mOsm/L Invalid Interpretation Code [facility] Comment on above: Performed By: #### 7 074288, [id number], 7034965, 7135890139, 5775186252, 2868032619, 21569912 ####[facility] (DEFAULT)[address] [place] [address] 53303 Potassium [Moles/Vol] 3.7 mmol/L Normal 3.6-5.1 [facility] Comment on above: Performed By: #### 7 369569, [id number], 0784510, 9117568921, 4433030813, 2914228530, 62664801 ####[facility] (DEFAULT)[address] [place] [address] 75758 Protein [Mass/Vol] 7.8 g/dL Normal 6.5-8.1 [facility] Comment on above: Performed By: #### 7 419958, [id number], 0368810, 4195949117, 0514269387, 5289342325, 79036199 ####[facility] (DEFAULT)[address] [place] [address] 60840 Sodium [Moles/Vol] 132.0 mmol/L Low 136.0-144.0 [facility] Comment on above: Performed By: #### 7 355221, [id number], 3123100, 1614262398, [id number], 0381446641, 24062871 ####[facility] (DEFAULT)[address] [place] [address] 08222 Urea nitrogen [Mass/Vol] 7 mg/dL Low 8-26 [facility] Comment on above: Performed By: #### 7 175700, [id number], 1462304, 4439133281, 4127448996, 5210784426, 97927352 ####[facility] (DEFAULT)[address] [place] [address] 32932 Urea nitrogen/Creatinine [Mass ratio] 15.5 mg/mg Normal 4.6-16.2 [facility] Comment on above: Performed By: #### 7 899115, [id number], 7382677, 1725094559, 0864537482, 5567027419, 79962687 ####[facility] (DEFAULT)[address] [place] [address] 60847 ED Clinical Summaryon 2022 ED Clinical Summary [facility] - Emergency Department [address] [place] [address] 05228 ED Clinical Summary PERSON INFORMATION Name: BETTY RAMIREZ Age: 27 Years Sex: FEMALE : 1995 MRN: Acct#: Visit Reason: Abdominal pain - ; Nausea; NAUSEA, ABD PAIN, 7 WEEKS Arrival: 03/21/2023 12:26:18 Discharge: 03/21/2023 17:51:00 LOS: 000 05:25 Check In: 03/21/2023 12:26:18 Checkout:03/21/2023 17:51:00 Address: [address] [place] [address] PCP: Caden Lauren MD PROVIDER INFORMATION Provider Role Assigned Unassigned Carol Blankenship PA-C ED PA 03/21/2023 12:47:55 Jocelyn RN, Alona Mckeon ED Nurse 03/21/2023 12:55:34 VITALS INFORMATION Vital Sign Triage Latest Temperature Tympanic Temperature Temporal Artery 37 DegC Pulse Rate O2 Sat 100 % 100 % Respiratory Rate 16 br/min 16 br/min Blood Pressure /93 mmHg /93 mmHg MEDICAL INFORMATION Medications Given: Medication Dose Route Sodium Chloride 0.9% intravenous solution (sodium chloride 0.9% bolus) 1000 mL IV ondansetron 4 mg IV Push Allergy Information: No Known Medication Allergies PHYSICIAN DOCUMENTATION DISCHARGE INFORMATION: Discharge Disposition: Home Discharge Location: Home PATIENT EDUCATION INFORMATION Instructions: Nausea and Vomiting, Adult, [id number]; Warning Signs During Follow-Up: With: Address: When: Caden Lauren MD [facility] [id number] [facility] [address] [place] [address] Within 3 to 5 days DIAGNOSIS: 1:Abdominal with intrauterine ; 2:Nausea and vomiting in Patient Understands: Yes - Patient/family/caregiv er verbalizes understanding of instructions given Comment: [facility] ED Note-Nursingon 03-21-2023 ED Note-Nursing Patient arrives to [facility] ED via private vehicle. Ambulated with a steady gait to ED room 8. Alert and oriented X4. C/O nausea, vomiting, and mid-left abdominal pain. Patient reports she believes she is approximately 7 week . Reports experiencing cramping and spotting approximately 1 weeks ago. History of preeclampsia. 3 Para 2. [facility] ED Patient Summaryon 023 ED Patient Summary [facility] - Emergency Department [address] [place] [id number] PATIENT DISCHARGE INSTRUCTIONS Patient Information Name: BETTY RAMIREZ Age: 27 Years Date of : 1995 Reason For Visit: Abdominal pain - ; Nausea; NAUSEA, ABD PAIN, 7 WEEKS Arrival Time: 03/21/2023 12:26:18 Primary Care Physician: Caden Lauren MD Attending Physician: Armando Nieto DO Comment: Visit Diagnosis: Diagnoses This Visit Abdominal pain - ([id number]) Abdominal with intrauterine (O00.01) Nausea ([id number]) Nausea and vomiting in (O21.9) The Pharmacy at [facility] is open Thursday through Thursday from 9A to 6P and Thursday and Thursday from 9A to 5P Prescription Information: If you have been given a prescription for narcotics, seek immediate medical attention if you have any difficulty breathing or any sudden status changes such as confusion and sleepiness. If you or anyone you know is experiencing suicidal thoughts, mental health, alcohol and/or drug addiction problems; contact the [facility] 02/02 Crisis Hotline -Text 2KXPE to 154404. If you received any narcotics, sedation, or any other medication that causes drowsiness for the next 24 hours, unless otherwise directed: ? Do not drive a car. ? Do not operate machinery such as power tools, lawn mowers, drills, sewing machines, or stoves ? Avoid alcoholic beverages and drugs for allergies, nerves, or sleep ? Do not make important personal or business decisions or sign any legal documents With: Address: When: Caden Lauren MD [facility] [id number] [address] Within 3 to 5 days Medication Information: The exam and treatment you received today in the [facility] Emergency Department were for an urgent problem and are not intended as complete care. It is important for you to follow up with a doctor, nurse practitioner, or physician?s commercial lending assistant for ongoing care. If your symptoms become worse or you do not improve as expected and you are unable to reach your usual health care provider, you should return to the Emergency Department, we are available 24 hours a day. For those patients who have received Radiology results, the interpretation of your X-ray as given to you by our Emergency Department physician is only a preliminary report. The Radiologist will review your films and if there is a change in the diagnosis you will be notified by phone. Please make sure you have provided a working phone number so we can reach you if necessary. In the event that you had a lab culture while you were a patient in the Emergency Department, you will be notified by phone if there is a need to change your antibiotic. Please make sure you have provided a working phone number so we can reach you if necessary. [facility] Emergency Department has provided you with a complete list of medications post discharge. Please inform your principal research economist/provider of your visit and for further instruction on these medications. Any specific questions regarding your chronic medications and dosages should be discussed with your primary care physician(s) and/or pharmacist. New Medications [facility] [id number], [address], [place] [id number], [phone] ondansetron (ondansetron 4 mg oral tablet) 1 tab(s) Oral Every 8 hours as needed for nausea/vomiting for 21 Days. Refills: 0. Additional medications on your home medication list not specifically addressed. Please contact the ordering physician if you have questions about these medications. multivitamin, ( Multivitamins) 1 Oral every day. Visit Information Allergies: Substance Reaction Symptoms Type Comments No Known Medication Allergies Drug Vital Signs: Vitals and Measurements this Visit (last charted value for your 03/21/2023 visit) Vital Signs This Visit Temperature Temporal Artery: 37 DegC Heart Rate Monitored: 78 bpm Respiratory Rate: 16 br/min Systolic Blood Pressure: 115 mmHg Diastolic Blood Pressure: 83 mmHg SpO2: 100 % Oxygen Therapy: Room air Measurements This Visit Height/Length Dosin.860 cm Height/Length Estimated: 149.860 cm Weight Dosin.700 kg Weight Estimated: 56.700 kg Problems List: Problem Onset Comments Patient Education Nausea and Vomiting, Adult Nausea is feeling that you have an upset stomach and that you are about to vomit. Vomiting is when food in your stomach forcefully comes out of your mouth. Vomiting can make you feel weak. If you vomit, or if you are not able to drink enough fluids, you may not have enough water in your body (get dehydrated). If you do not have enough water in your body, you may: ? Feel tired. ? Feel thirsty. ? Have a dry mouth. ? Have cracked (more content not included)... Normal [facility] Extra Greenon 03-21-2023 Tube Collected Yes Invalid Interpretation Code [facility] Comment on above: Performed By: #### 7 [id number], [id number], [id number], [id number], [id number], [id number] #### [facility] (DEFAULT) [address] [place] [address] Performed By: #### 7 [id number], [id number], [id number], [id number], [id number], [id number] ####[facility] (DEFAULT)[address] [place] [address] RhIG.on 03-21-2023 RhIG. No. Vials RhI RhIG Candidate?: No Date to Give: [id number] RhIG Status: NA [facility] Comment on above: Performed By: #### 1 [id number], [id number] ####[facility] (DEFAULT)[address] [place] [address] UA w Culture if Ind Standard on 03-21-2023 Breakpoint UA [facility] Comment on above: Performed By: #### 1 [id number] #### [facility] (DEFAULT) [address] [place] [address] Color (U) Yellow [facility] Comment on above: Performed By: #### 1 [id number] #### [facility] (DEFAULT) [address] [place] [address] Culture? Not Indicated Invalid Interpretation Code [facility] Comment on above: Result Comment: Resu lt created by rule GL_MAGR_ADD_UA_CULT1 Performed By: #### 1 [id number] #### [facility] (DEFAULT) [address] [place] [address] Glucose (U) [Mass/Vol] Negative [facility] Comment on above: Performed By: #### 1 [id number] #### [facility] (DEFAULT) [address] [place] [address] Ketones Ql (U) Negative [facility] Comment on above: Performed By: #### 1 [id number] #### [facility] (DEFAULT) [address] [place] [address] Micro? Not Indicated Invalid Interpretation Code [facility] Comment on above: Result Comment: Resu lt created by rule GL_MAGR_ADD_UA_MICRO Performed By: #### 1 [id number] #### [facility] (DEFAULT) [address] [place] [address] UA Bilirubin Negative Normal [facility] Comment on above: Performed By: #### 1 [id number] #### [facility] (DEFAULT) [address] [place] [address] UA Blood Negative Normal NEGATIVE [facility] Comment on above: Performed By: #### 1 [id number] #### [facility] (DEFAULT) [address] [place] [address] UA Clarity CLEAR Normal CLEAR [facility] Comment on above: Performed By: #### 1 [id number] #### [facility] (DEFAULT) [address] [place] [address] UA Leuk Est Negative Normal NEGATIVE [facility] Comment on above: Performed By: #### 1 [id number] #### [facility] (DEFAULT) [address] [place] [address] UA Nitrite Negative Normal NEGATIVE [facility] Comment on above: Performed By: #### 1 [id number] #### [facility] (DEFAULT) [address] [place] [address] UA pH 6.5 Normal 5-8 [facility] Comment on above: Performed By: #### 1 [id number] #### [facility] (DEFAULT) [address] [place] [address] UA Protein Negative Normal [facility] Comment on above: Performed By: #### 1 [id number] #### [facility] (DEFAULT) [address] [place] [address] UA Spec Grav <=1.005 Normal 1.001-1.035 [facility] Comment on above: Performed By: #### 1 [id number] #### [facility] (DEFAULT) [address] [place] [address] UA Urobilinogen 0.2 mg/dL Normal 0.2-1.0 [facility] Comment on above: Performed By: #### 1 [id number] #### [facility] (DEFAULT) [address] [place] [address] Urine Source Clean Catch Normal [facility] Comment on above: Performed By: #### 1 [id number] #### [facility] (DEFAULT) [address] [place] [address] US 1st Trimesteron 03-21-2023 US 1st Trimester CLINICAL HISTORY: Left lower quadrant pain. Early . Serum Beta hCG 111,000. COMPARISON: None available for this . TECHNIQUE: Transabdominal and transvaginal scanning was performed. FINDINGS: An approximately 2.3 cm gestational sac is present within the fundus of the central endometrial canal, without significant surrounding hemorrhage. An approximately 3 mm yolk sac and possibly 2 separate approximately 5.4 mm poles with cardiac activity in each measured at 165 and 126 bpm, and questionable triangular appearance of the marginal coronary, suggesting a monozygotic diamniotic twin corresponding to approximately 6 weeks 2 days plus or -1 week by crown-rump length. An approximately 3 mm simple cyst without surrounding thickened wall is noted within the central endometrial complex of the lower uterine segment, most likely an endometrial cyst or small loculated endometrial fluid, rather than an additional gestational sac. The normal-sized uterus is otherwise unremarkable in appearance. The cervix is closed measuring approximately 2.8 cm in longitudinal length. A small amount of simple free fluid is present within the pelvic cul-de-sac. Both ovaries appear within normal limits transabdominally, with an approximately 1.8 x 1.5 x 1.4 cm probable left ovarian corpus luteum cyst. IMPRESSION: SUSPECT EARLY TWIN OF APPROXIMATELY 6 WEEKS 2 DAYS, PLUS OR MINUS ONE WEEK. 3 MM ENDOMETRIAL CYST WITHIN THE LOWER UTERINE SEGMENT, OF DOUBTFUL CLINICAL SIGNIFICANCE. FOLLOW-UP IMAGING SUGGESTED; CLINICALLY WARRANTED. APPROXIMATELY 1.8 CM PROBABLE LEFT OVARIAN CORPUS LUTEUM CYST. SMALL VOLUME FREE FLUID IN THE PELVIS. Final Signed (Electronic Signature): Lefty Parker MD 03/22/23 10:43 a Technologist: ARTHUR Rivera [facility] Transvaginalon 03-21-2023 US Transvaginal CLINICAL HISTORY: Left lower quadrant pain. Early . Serum Beta hCG 111,000. COMPARISON: None available for this . TECHNIQUE: Transabdominal and transvaginal scanning was performed. FINDINGS: An approximately 2.3 cm gestational sac is present within the fundus of the central endometrial canal, without significant surrounding hemorrhage. An approximately 3 mm yolk sac and possibly 2 separate approximately 5.4 mm poles with cardiac activity in each measured at 165 and 126 bpm, and questionable triangular appearance of the marginal coronary, suggesting a monozygotic diamniotic twin corresponding to approximately 6 weeks 2 days plus or -1 week by crown-rump length. An approximately 3 mm simple cyst without surrounding thickened wall is noted within the central endometrial complex of the lower uterine segment, most likely an endometrial cyst or small loculated endometrial fluid, rather than an additional gestational sac. The normal-sized uterus is otherwise unremarkable in appearance. The cervix is closed measuring approximately 2.8 cm in longitudinal length. A small amount of simple free fluid is present within the pelvic cul-de-sac. Both ovaries appear within normal limits transabdominally, with an approximately 1.8 x 1.5 x 1.4 cm probable left ovarian corpus luteum cyst. IMPRESSION: SUSPECT EARLY TWIN OF APPROXIMATELY 6 WEEKS 2 DAYS, PLUS OR MINUS ONE WEEK. 3 MM ENDOMETRIAL CYST WITHIN THE LOWER UTERINE SEGMENT, OF DOUBTFUL CLINICAL SIGNIFICANCE. FOLLOW-UP IMAGING SUGGESTED; CLINICALLY WARRANTED. APPROXIMATELY 1.8 CM PROBABLE LEFT OVARIAN CORPUS LUTEUM CYST. SMALL VOLUME FREE FLUID IN THE PELVIS. Final Signed (Electronic Signature): Lefty Parker MD 03/22/23 10:43 a Technologist: ARTHUR Normal [facility] hCG Quantitativeon 3 hCG Quantitative 308833.0 mIU/mL High 0.0-0.6 [facility] Comment on above: Result Comment: Post -Menopausal Reference Range is: 0.1-11.6 mIU/mL Performed By: #### 7 [id number], [id number], [id number], [id number], [id number], [id number] ####[facility] (DEFAULT)[address] [place] [address] CBC AUTO DIFFon 04-12-2020 Basophils (Bld) [#/Vol] 0.0 103/ul Normal 0.0-0.1 [facility] Comment on above: Performed By: #### T NS #### [facility] [address] [place], [place] [address] Mikal Dempsey Basophils/100 WBC (Bld) 0.4 % Normal 0.2-2.0 [facility] Comment on above: Performed By: #### T NS #### [facility] [address] [place] [address] Mikal Roselyn Eosinophils (Bld) [#/Vol] 0.1 103/ul Normal 0.0-0.7 [facility] Comment on above: Performed By: #### T NS #### [facility] [address] [place] [address] Mikal Roselyn Eosinophils/100 WBC (Bld) 0.7 % Critically low 0.9-7.0 [facility] Comment on above: Performed By: #### T NS #### [facility] [address] [place] [address] Mikal Roselyn Erythrocyte distribution width (RBC) [Ratio] 13.4 % Normal 11.0-15.0 [facility] Comment on above: Performed By: #### T NS #### [facility] [address] [place] [address] Mikal Roselyn Hematocrit (Bld) [Volume fraction] 34.1 % Critically low 36.0-48.0 [facility] Comment on above: Performed By: #### T NS #### [facility] [address] [place] [address] Mikal Roselyn Hemoglobin (Bld) [Mass/Vol] 10.9 g/dL Critically low 12.0-16.0 [facility] Comment on above: Performed By: #### T NS #### [facility] [address] [place] [address] Mikal Roselyn IG # 0.05 10e3/ul Critically high 0.00-0.03 [facility] Comment on above: Performed By: #### T NS #### [facility] [address] [place] [address] Mikal Roselyn IG % 0.5 % Normal 0.0-0.5 [facility] Comment on above: Performed By: #### T NS #### [facility] [address] [place] [address] Mikal Roselyn Lymphocytes (Bld) [#/Vol] 2.4 103/ul Normal 1.2-3.8 [facility] Comment on above: Performed By: #### T NS #### [facility] [address] [place], [place] [id number] Mikal Roselyn Lymphocytes/100 WBC (Bld) 22.5 % Normal 20.5-60.0 [facility] Comment on above: Performed By: #### T NS #### [facility] [address] [place], [place] [id number] Mikal Roselyn MANUAL DIFF REQ NO Normal [facility] Comment on above: Performed By: #### T NS #### [facility] [address] [place], [place] [id number] Mikal Roselyn MCH (RBC) [Entitic mass] 27.7 pg Normal 26.7-34.0 [facility] Comment on above: Performed By: #### T NS #### [facility] [address] [place] [address] Mikal Roselyn MCHC (RBC) [Mass/Vol] 32.0 g/dL Normal 29.9-35.2 [facility] Comment on above: Performed By: #### T NS #### [facility] [address] [place], [place] [id number] Mikal Roselyn MCV (RBC) [Entitic vol] 86.5 fL Normal 81.0-99.0 [facility] Comment on above: Performed By: #### T NS #### [facility] [address] [place], [place] [id number] Mikal Roselyn Monocytes (Bld) [#/Vol] 1.4 103/ul Critically high 0.3-0.8 [facility] Comment on above: Performed By: #### T NS #### [facility] [address] [place], [place] [id number] Mikal Roselyn Monocytes/100 WBC (Bld) 12.4 % Critically high 1.7-12.0 [facility] Comment on above: Performed By: #### T NS #### [facility] [address] [place], [place] [id number] Mikal Roselyn Neutrophils (Bld) [#/Vol] 6.9 103/ul Critically high 1.4-6.5 [facility] Comment on above: Performed By: #### T NS #### [facility] [address] [place], [place] [id number] Mikal Roselyn Neutrophils/100 WBC (Bld) 63.5 % Normal 43.0-75.0 [facility] Comment on above: Performed By: #### T NS #### [facility] [address] [place], [place] [id number] Mikal Roselyn Platelet mean volume (Bld) [Entitic vol] 9.9 fL Normal 9.5-13.5 [facility] Comment on above: Performed By: #### T NS #### [facility] [address] [place], [place] [id number] Mikal Roselyn Platelets (Bld) [#/Vol] 194 103/ul Normal 150-450 [facility] Comment on above: Performed By: #### T NS #### [facility] [address] [place], [place] [id number] Mikal Roselyn RBC (Bld) [#/Vol] 3.94 106/ul Critically low 4.20-5.40 Th e [facility] Comment on above: Performed By: #### T NS #### [facility] [address] [place], [place] [id number] Mikal Roselyn WBC (Bld) [#/Vol] 10.9 103/ul Normal 4.0-11.0 [facility] Comment on above: Performed By: #### T NS #### [facility] [address] [place], [place] [address] Mikal Roselyn CBC AUTO DIFFon 04-10-2020 Basophils (Bld) [#/Vol] 0.0 103/ul Normal 0.0-0.1 [facility] Comment on above: Performed By: #### A 1C #### [facility] [address] [place], [place] [id number] Mikal Roselyn Basophils/100 WBC (Bld) 0.2 % Normal 0.2-2.0 [facility] Comment on above: Performed By: #### A 1C #### [facility] [address] [place] [address] Mikal Roselyn Eosinophils (Bld) [#/Vol] 0.0 103/ul Normal 0.0-0.7 [facility] Comment on above: Performed By: #### A 1C #### [facility] [address] [place], [place] [id number] Mikal Roselyn Eosinophils/100 WBC (Bld) 0.2 % Critically low 0.9-7.0 [facility] Comment on above: Performed By: #### A 1C #### [facility] [address] [place], [place] [id number] Mikal Roselyn Erythrocyte distribution width (RBC) [Ratio] 13.3 % Normal 11.0-15.0 [facility] Comment on above: Performed By: #### A 1C #### [facility] [address] [place], [place] [id number] Mikal Roselyn Hematocrit (Bld) [Volume fraction] 34.8 % Critically low 36.0-48.0 [facility] Comment on above: Performed By: #### A 1C #### [facility] [address] [place], [place] [id number] Mikal Roselyn Hemoglobin (Bld) [Mass/Vol] 11.4 g/dL Critically low 12.0-16.0 [facility] Comment on above: Performed By: #### A 1C #### [facility] [address] [place], [place] [address] Mikal Roselyn IG # 0.04 10e3/ul Critically high 0.00-0.03 [facility] Comment on above: Performed By: #### A 1C #### [facility] [address] [place], [place] [address] Mikal Roselyn IG % 0.5 % Normal 0.0-0.5 [facility] Comment on above: Performed By: #### A 1C #### [facility] [address] [place], [place] [id number] Mikal Roselyn Lymphocytes (Bld) [#/Vol] 1.4 103/ul Normal 1.2-3.8 [facility] Comment on above: Performed By: #### A 1C #### [facility] [address] [place], [place] [address] Mikal Roselyn Lymphocytes/100 WBC (Bld) 16.3 % Critically low 20.5-60.0 [facility] Comment on above: Performed By: #### A 1C #### [facility] [address] [place], [place] [address] Mikal Roselyn MANUAL DIFF REQ NO Normal [facility] Comment on above: Performed By: #### A 1C #### [facility] [address] [place], [place] [address] Mikal Roselyn MCH (RBC) [Entitic mass] 27.7 pg Normal 26.7-34.0 [facility] Comment on above: Performed By: #### A 1C #### [facility] [address] [place] [address] Mikalrena Hensleyen MCHC (RBC) [Mass/Vol] 32.8 g/dL Normal 29.9-35.2 [facility] Comment on above: Performed By: #### A 1C #### [facility] [address], [place] [address] Mikal Roselyn MCV (RBC) [Entitic vol] 84.5 fL Normal 81.0-99.0 [facility] Comment on above: Performed By: #### A 1C #### [facility] [address] [place] [address] Mikal Roselyn Monocytes (Bld) [#/Vol] 1.1 103/ul Critically high 0.3-0.8 [facility] Comment on above: Performed By: #### A 1C #### [facility] [address] [place], [place] [address] Mikal Roselyn Monocytes/100 WBC (Bld) 12.6 % Critically high 1.7-12.0 [facility] Comment on above: Performed By: #### A 1C #### [facility] [address] [place], [place] [address] Mikal Roselyn Neutrophils (Bld) [#/Vol] 6.1 103/ul Normal 1.4-6.5 [facility] Comment on above: Performed By: #### A 1C #### [facility] [address] [place] [address] Mikal Roselyn Neutrophils/100 WBC (Bld) 70.2 % Normal 43.0-75.0 [facility] Comment on above: Performed By: #### A 1C #### [facility] [address] [place] [address] Mikal Roselyn Platelet mean volume (Bld) [Entitic vol] 10.3 fL Normal 9.5-13.5 [facility] Comment on above: Performed By: #### A 1C #### [facility] [address] [place], [place] [id number] Mikal Roselyn Platelets (Bld) [#/Vol] 232 103/ul Normal 150-450 [facility] Comment on above: Performed By: #### A 1C #### [facility] [address] [place], [place] [id number] Mikal Roselyn RBC (Bld) [#/Vol] 4.12 106/ul Critically low 4.20-5.40 [facility] Comment on above: Performed By: #### A 1C #### [facility] Laboratory [address] [place], [place] [id number] Mikal Roselyn WBC (Bld) [#/Vol] 8.7 103/ul Normal 4.0-11.0 [facility] Comment on above: Performed By: #### A 1C #### [facility] Laboratory [address] [place], [place] [id number] Mikal Roselyn DRUG SCREEN RAPID (URINE)on 04-10-2020 AMP Negative Normal NEGATIVE [facility] Comment on above: Performed By: #### A 1C #### [facility] [address] [place] [address] Mikal Roselyn BAR Negative Normal NEGATIVE [facility] Comment on above: Performed By: #### A 1C #### [facility] [address] [place], [place] [id number] Mikal Roselyn BUP Negative Normal NEGATIVE [facility] Comment on above: Performed By: #### A 1C #### [facility] [address] [place], [place] [id number] Mikal Roselyn BZO Negative Normal NEGATIVE [facility] Comment on above: Performed By: #### A 1C #### [facility] [address] [address] Mikal Roselyn MADDY Negative Normal NEGATIVE [facility] Comment on above: Performed By: #### A 1C #### [facility] [address] [address] Mikal Roselyn CUT-OFFS SEE BELOW Normal [facility] Comment on above: Result Comment: AMP (Amphetamine): 500ng/mL, BAR (Barbituates): 200 ng/mL, BZO (Benzodiazepines): 150 ng/mL, BUP (Buprenorphine): 10 ng/mL, MADDY (Cocaine): 150 ng/mL, mAMP (Methamphetamine): 500 ng/mL, MTD (Methadone): 200 ng/mL, OPI (Opiates): 100 ng/mL or 2000 ng/mL, OXY (Oxycodone): 100 ng/mL, PCP (Phencyclidine): 25 ng/mL, PPX (Propoxyphene): 300 ng/mL, THC (Cannabinoids): 50 ng/mL, TCA (Trycyclic Antidepressants): 300 ng/mL Performed By: #### A 1C #### [facility] [address] [place] [address] Mikal Roselyn DRUG CUT HEADER DRUG CLASS TEST SYST EM CUT-OFF CONCENTRATIONS ARE FOLLOWS: Normal [facility] Comment on above: Performed By: #### A 1C #### [facility] [address] [place] [address] Mikal Roselyn mAMP Negative Normal NEGATIVE [facility] Comment on above: Performed By: #### A 1C #### [facility] [address] [address] Mikal Roselyn MTD Negative Normal NEGATIVE [facility] Comment on above: Performed By: #### A 1C #### [facility] [address] [place] [address] Mikal Roselyn OPI Negative Normal NEGATIVE [facility] Comment on above: Performed By: #### A 1C #### [facility] [address] [place] [address] Mikal Roselyn OXY Negative Normal NEGATIVE [facility] Comment on above: Performed By: #### A 1C #### [facility] [address] [place] [address] Mikal Roselyn PCP Negative Normal NEGATIVE [facility] Comment on above: Performed By: #### A 1C #### [facility] [address] [place] [address] Mikal Roselyn PPX Negative Normal NEGATIVE [facility] Comment on above: Performed By: #### A 1C #### [facility] [address] [place] [address] Mikal Roselyn TCA Negative Normal NEGATIVE [facility] Comment on above: Performed By: #### A 1C #### [facility] [address] [place] [address] Mikal Roselyn THC Negative Normal NEGATIVE [facility] Comment on above: Performed By: #### A 1C #### [facility] [address] [place] [address] Mikal Roselyn TYPE AND SCREENon 04-10-2020 TYPE AND SCREEN Negative Normal [facility] Comment on above: Performed By: #### A 1C #### [facility] [address] [place] [address] Mikal Roselyn COVID-19 PCRon 04-06-2020 SARS-CoV-2, MAYCO Not Detected Normal Not Detected The [facility] Comment on above: Result Comment: This nucleic acid amplification test was developed and its performance characteristics determined by [facility]. Nucleic acid amplification tests include PCR and TMA. This test has not been FDA cleared or approved. This test has been authorized by FDA under an Emergency Use Authorization (EUA). This test is only authorized for the duration of time the declaration that circumstances exist justifying the authorization of the emergency use of in vitro diagnostic tests for detection of SARS-CoV-2 virus and/or diagnosis of COVID-19 infection under section 564(b)(1) of the Act, 21 U.S.C. 360bbb-3(b) (1), unless the authorization is terminated or revoked sooner. When diagnostic testing is negative, the possibility of a false negative result should be considered in the context of a patient's recent exposures and the presence of clinical signs and symptoms consistent with COVID-19. An individual without symptoms of COVID-19 and who is not shedding SARS-CoV-2 virus would expect to have a negative (not detected) result in this assay. Performed By: #### A 1C #### [facility] [address] [place] [address] DRUG SCREEN RAPID (URINE)on 04-05-2020 AMP Negative Normal NEGATIVE [facility] Comment on above: Performed By: #### A 1C #### [facility] [address] [place] [address] Mikal Roselyn BAR Negative Normal NEGATIVE [facility] Comment on above: Performed By: #### A 1C #### [facility] [address] [place] [address] [facility] BUP Negative Normal NEGATIVE [facility] Comment on above: Performed By: #### A 1C #### [facility] [address] [place] [address] [facility] BZO Negative Normal NEGATIVE [facility] Comment on above: Performed By: #### A 1C #### [facility] [address] [place] [address] MADDY Negative Normal NEGATIVE [facility] Comment on above: Performed By: #### A 1C #### [facility] [address] [place] [address] CUT-OFFS SEE BELOW Normal [facility] Comment on above: Result Comment: AMP (Amphetamine): 500ng/mL, BAR (Barbituates): 200 ng/mL, BZO (Benzodiazepines): 150 ng/mL, BUP (Buprenorphine): 10 ng/mL, MADDY (Cocaine): 150 ng/mL, mAMP (Methamphetamine): 500 ng/mL, MTD (Methadone): 200 ng/mL, OPI (Opiates): 100 ng/mL or 2000 ng/mL, OXY (Oxycodone): 100 ng/mL, PCP (Phencyclidine): 25 ng/mL, PPX (Propoxyphene): 300 ng/mL, THC (Cannabinoids): 50 ng/mL, TCA (Trycyclic Antidepressants): 300 ng/mL Performed By: #### A 1C #### [facility] [address] [address] Mikal Roselyn DRUG CUT HEADER DRUG CLASS TEST SYST EM CUT-OFF CONCENTRATIONS ARE FOLLOWS: Normal [facility] Comment on above: Performed By: #### A 1C #### [facility] [address] [place] [address] Mikal Roseyln mAMP Negative Normal NEGATIVE [facility] Comment on above: Performed By: #### A 1C #### [facility] [address] [place] [address] Mikal Roselyn MTD Negative Normal NEGATIVE [facility] Comment on above: Performed By: #### A 1C #### [facility] [address] [place] [address] Mikal Roselyn OPI Negative Normal NEGATIVE [facility] Comment on above: Performed By: #### A 1C #### [facility] [address] [place] [address] Mikal Roselyn OXY Negative Normal NEGATIVE [facility] Comment on above: Performed By: #### A 1C #### [facility] [address] [place] [address] Mikal Roselyn PCP Negative Normal NEGATIVE [facility] Comment on above: Performed By: #### A 1C #### [facility] [address] [place] [address] Mikal Roselyn PPX Negative Normal NEGATIVE [facility] Comment on above: Performed By: #### A 1C #### [facility] [address] [place] [address] Mikal Roselyn TCA Negative Normal NEGATIVE [facility] Comment on above: Performed By: #### A 1C #### [facility] [address] [place] [address] Mikal Roselyn THC Negative Normal NEGATIVE [facility] Comment on above: Performed By: #### A 1C #### [facility] [address] [place] [address] Mikal Roselyn US PREG BIOPHY W NON STRESSo n 04-03-2020 US PREG BIOPHY W NON STRESS EXAMINATION: US PREG BIOPHY W NON STRESS HISTORY: Pre-existing hypertension complicating , childbirth and puerperium COMPARISON: No relevant comparison available. TECHNIQUE: Ultrasound biophysical profile was performed in the radiology department. non-reactive stress testing was performed by nursing staff in the birthing center. FINDINGS: BREATHING MOVEMENTS: 2.0 GROSS BODY MOVEMENTS: 2.0 TONE: 2.0 QUALITATIVE AMNIOTIC FLUID VOLUME: 2.0 PRESENTATION: Cephalic HEART RATE: 147.3 bpm AMNIOTIC FLUID VOLUME: 11.7 cm GESTATIONAL AGE: 37 weeks 6 days IMPRESSION: 1. Total biophysical profile score: 8.0 2. Numerous calcifications within the placenta consistent with an aging placenta. Electronically authenticated by: LEFTY GALE Date: 2020-04-03 13:48 Normal The [facility] US PREG BIOPHY W NON STRESSo n 03-27-2020 US PREG BIOPHY W NON STRESS EXAMINATION: US PREG BIOPHY W NON STRESS HISTORY: Pre-existing hypertension complicating , childbirth and puerperium COMPARISON: No relevant comparison available. TECHNIQUE: Ultrasound biophysical profile was performed in the radiology department. non-reactive stress testing was performed by nursing staff in the birthing center. FINDINGS: BREATHING MOVEMENTS: 2.0 GROSS BODY MOVEMENTS: 2.0 TONE: 2.0 QUALITATIVE AMNIOTIC FLUID VOLUME: 2.0 PRESENTATION: Cephalic HEART RATE: 145.9 bpm H.B./min AMNIOTIC FLUID VOLUME: 14.0 cm cm GESTATIONAL AGE: 36 weeks 6 days CONCLUSION: Total biophysical profile score: 8.0 Electronically authenticated by: VANCE DING Date: 2020-03-27 13:51 Normal The [facility] CHLAMYDIA/GONOCOCCUS MAYCO ( AB/URINE/PAPon 03-23-2020 Chlamydia trachomatis, MAYCO Negative Normal Negative [facility] Comment on above: Performed By: #### A 1C #### [facility] [address] [address] Mikal Dempsey Neisseria gonorrhoeae, MAYCO Negative Normal Negative [facility] Comment on above: Performed By: #### A 1C #### [facility] [address] [place], [place] [address] Mikal Dempsey US PREG BIOPHY W NON STRESSo n 03-22-2020 US PREG BIOPHY W NON STRESS PROCEDURE: US PREG BIOPHY W NON STRESS, US PREG GROWTH HISTORY: 24-year-old female with . Evaluation of biophysical profile. COMPARISON STUDY: 03/12/2020 is available for correlation. TECHNIQUE: Sonographic imaging of the pelvis was performed for evaluation. FINDINGS: A single fetus is noted in cephalic presentation. Cardiac activity of 136 bpm is noted. BPD: 8.97 cm. HC: 32.17 cm. AC: 32.3 cm. FL: 6.9 cm. HC/AC: 21.37. FL/BPD: 77.0 %. FL/AC: 21.4 %. Estimated weight of approximately 2841 g or approximately 6 lbs. 4 oz. This is within the 53rd percentile. Full review of anatomy is not performed. movement, tone, and breathing and fluid are appropriate. Amniotic fluid index of approximately 16.27 cm is noted. Estimated gestational age of approximately 36 weeks 1 day. IMPRESSION: Single live intrauterine in cephalic presentation with biometric data as above. Cardiac activity of 136 bpm. Total biophysical profile score of 8/8. Formal obstetrical evaluation and follow-up is suggested as clinically appropriate. Electronically authenticated by: FARRUKH PARK Date: 2020-03-22 02:34 Normal The [facility] GROUP B STREP CULTUREon S. agalactiae Ag Ql (Unsp spec) Culture Observations: Negative for Group B Streptococcus. Normal The [facility] Comment on above: Performed By: #### A 1C #### [facility] [address] [place] [address] Mikal Dempsey PREG GROWTHon 03-12-2020 PREG GROWTH EXAMINATION: US PREG GROWTH HISTORY: Pre-existing hypertension complicating , childbirth and puerperium COMPARISON: No relevant comparison available. FINDINGS: Heart Rate: 137 bpm Number: One Position: Cephalic Amniotic Fluid Volume: 14.8 cm; normal range Maximum Vertical Pocket: 4.5 cm BIOMETRY: BPD: 9.11 cm; 37 weeks 0 days HC: 31.6cm; 35 weeks, 3 days AC: 31.9 cm cm; 35 weeks 5 days FL: 6.6 cm; 38 weeks, 0 days EFW: 2666 g (47% by AUA, 66% by expected) FL/AC: 0.21 FL/BPD: 0.72 HC/AC: 0.99 GESTATIONAL AGE: Age by EDC: 34 weeks, 5 days PETER by EDC: 04/18/2020 Age by US: 35 weeks, 3 days PETER by US: 04/13/2020 IMPRESSION: 1. Single live intrauterine with growth detailed above. Electronically authenticated by: LEFTY GALE Date: 2020-03-12 09:32 Normal The [facility] COVID-19 PCRon 02-24-2020 SARS-CoV-2, MAYCO Not Detected Normal Not Detected The [facility] Comment on above: Result Comment: This test was developed and its performance characteristics determined by [facility]. This test has not been FDA cleared or approved. This test has been authorized by FDA under an Emergency Use Authorization (EUA). This test is only authorized for the duration of time the declaration that circumstances exist justifying the authorization of the emergency use of in vitro diagnostic tests for detection of SARS-CoV-2 virus and/or diagnosis of COVID-19 infection under section 564(b)(1) of the Act, 21 U.S.C. 360bbb-3(b)(1), unless the authorization is terminated or revoked sooner. When diagnostic testing is negative, the possibility of a false negative result should be considered in the context of a patient's recent exposures and the presence of clinical signs and symptoms consistent with COVID-19. An individual without symptoms of COVID-19 and who is not shedding SARS-CoV-2 virus would expect to have a negative (not detected) result in this assay. Performed By: #### P REGQNT #### [facility] [address] [place] [address] Mikal Roselyn CBC AUTO DIFFon 02-18-2020 Basophils (Bld) [#/Vol] 0.0 103/ul Normal 0.0-0.1 [facility] Comment on above: Performed By: #### P REGQNT #### [facility] [address] [place] [address] Mikal Roselyn Basophils/100 WBC (Bld) 0.2 % Normal 0.2-2.0 [facility] Comment on above: Performed By: #### P REGQNT #### [facility] [address] [place] [address] Mikal Roselyn Eosinophils (Bld) [#/Vol] 0.0 103/ul Normal 0.0-0.7 [facility] Comment on above: Performed By: #### P REGQNT #### [facility] [address] [place] [address] Mikal Roselyn Eosinophils/100 WBC (Bld) 0.3 % Critically low 0.9-7.0 [facility] Comment on above: Performed By: #### P REGQNT #### [facility] [address] [place] [address] Mikal Roselyn Erythrocyte distribution width (RBC) [Ratio] 13.0 % Normal 11.0-15.0 [facility] Comment on above: Performed By: #### P REGQNT #### [facility] [address] [place] [address] Mikal Roselyn Hematocrit (Bld) [Volume fraction] 36.3 % Normal 36.0-48.0 [facility] Comment on above: Performed By: #### P REGQNT #### [facility] [address] [place] [address] Mikal Roselyn Hemoglobin (Bld) [Mass/Vol] 11.9 g/dL Critically low 12.0-16.0 [facility] Comment on above: Performed By: #### P REGQNT #### [facility] [address] [place] [address] Mikal Roselyn IG # 0.04 10e3/ul Critically high 0.00-0.03 [facility] Comment on above: Performed By: #### P REGQNT #### [facility] [address] [place] [address] Mikal Roselyn IG % 0.5 % Normal 0.0-0.5 [facility] Comment on above: Performed By: #### P REGQNT #### [facility] [address] [place] [address] Mikal Roselyn Lymphocytes (Bld) [#/Vol] 1.6 103/ul Normal 1.2-3.8 [facility] Comment on above: Performed By: #### P REGQNT #### [facility] [address] [place] [address] Mikal Roselyn Lymphocytes/100 WBC (Bld) 18.9 % Critically low 20.5-60.0 [facility] Comment on above: Performed By: #### P REGQNT #### [facility] [address] [place], [place] [id number] Mikal Dempsey MANUAL DIFF REQ NO Normal [facility] Comment on above: Performed By: #### P REGQNT #### [facility] [address] [place], [place] [id number] Mikal Dempsey MCH (RBC) [Entitic mass] 29.5 pg Normal 26.7-34.0 [facility] Comment on above: Performed By: #### P REGQNT #### [facility] [address] [place] [address] Mikal Dempsey MCHC (RBC) [Mass/Vol] 32.8 g/dL Normal 29.9-35.2 [facility] Comment on above: Performed By: #### P REGQNT #### [facility] [address] [place] [address] Mikal Dempsey MCV (RBC) [Entitic vol] 90.1 fL Normal 81.0-99.0 [facility] Comment on above: Performed By: #### P REGQNT #### [facility] [address] [place] [address] Mikal Dempsey Monocytes (Bld) [#/Vol] 1.1 103/ul Critically high 0.3-0.8 [facility] Comment on above: Performed By: #### P REGQNT #### [facility] [address] [place] [address] Mikal Dempsey Monocytes/100 WBC (Bld) 12.6 % Critically high 1.7-12.0 [facility] Comment on above: Performed By: #### P REGQNT #### [facility] [address] [place] [address] Mikal Roselyn Neutrophils (Bld) [#/Vol] 5.8 103/ul Normal 1.4-6.5 [facility] Comment on above: Performed By: #### P REGQNT #### [facility] [address] [id number] Mikalrena Dempsey Neutrophils/100 WBC (Bld) 67.5 % Normal 43.0-75.0 [facility] Comment on above: Performed By: #### P REGQNT #### [facility] [address] [place], [place] [id number] Mikalrena Dempsey Platelet mean volume (Bld) [Entitic vol] 9.6 fL Normal 9.5-13.5 [facility] Comment on above: Performed By: #### P REGQNT #### [facility] [address] [place] [address] Mikal Roselyn Platelets (Bld) [#/Vol] 204 103/ul Normal 150-450 [facility] Comment on above: Performed By: #### P REGQNT #### [facility] [address] [place], [place] [id number] Mikal Roselyn RBC (Bld) [#/Vol] 4.03 106/ul Critically low 4.20-5.40 [facility] Comment on above: Performed By: #### P REGQNT #### [facility] [address] [place] [address] Mikal Roselyn WBC (Bld) [#/Vol] 8.6 103/ul Normal 4.0-11.0 The [facility] Comment on above: Performed By: #### P REGQNT #### [facility] [address] [place] [address] Mikal Roselyn CULTURE URINEon 02-18-2020 CULTURE URINE Culture Observations : NORMAL GENITAL SIERRA. NO POTENTIAL PATHOGENS SEEN. Normal [facility] Comment on above: Performed By: #### P REGQNT #### [facility] [address] [place] [address] Mikal Roselyn LDHon 02-18-2020 LDH 142 U/L Normal 122-222 [facility] Comment on above: Performed By: #### P REGQNT #### [facility] [address] [place] [address] Mikal Roselyn PROF 14(COMP METB)on 020 Albumin [Mass/Vol] 2.5 g/dL Critically low 3.5-5.0 Th e [facility] Comment on above: Performed By: #### P REGQNT #### [facility] [address] [id number] Mikal Roselyn Albumin/Globulin [Mass ratio] 0.7 {ratio} Normal [facility] Comment on above: Performed By: #### P REGQNT #### [facility] [address] [id number] Mikal Roselyn ALP [Catalytic activity/Vol] 107 U/L Normal 38-126 [facility] Comment on above: Performed By: #### P REGQNT #### [facility] [address] [address] Mikal Roselyn ALT [Catalytic activity/Vol] 16 U/L Normal 9-52 [facility] Comment on above: Performed By: #### P REGQNT #### [facility] [address] [place] [address] Mikal Roselyn Anion gap [Moles/Vol] 12.1 mmol/L Normal [facility] Comment on above: Performed By: #### P REGQNT #### [facility] [address] [place] [address] Mikal Roselyn AST [Catalytic activity/Vol] 10 U/L Critically low 14-36 [facility] Comment on above: Performed By: #### P REGQNT #### [facility] [address] [place] [address] Mikal Roselyn Bilirubin Ql (U) 0.3 mg/dL Normal 0.2-1.3 [facility] Comment on above: Performed By: #### P REGQNT #### [facility] [address] [place] [address] Mikal Roselyn Calcium [Mass/Vol] 8.6 mg/dL Normal 8.4-10.2 The [facility] Comment on above: Performed By: #### P REGQNT #### [facility] [address] [place] [address] Mikal Roselyn Chloride [Moles/Vol] 103 mmol/L Normal 98-107 [facility] Comment on above: Performed By: #### P REGQNT #### [facility] [address] [place], [place] [address] Mikal Roselyn CO2 [Moles/Vol] 24.1 mmol/L Normal 22.0-30.0 The [facility] Comment on above: Performed By: #### P REGQNT #### [facility] [address] [phone] Mikal Roselyn Creatinine [Mass/Vol] 0.52 mg/dL Normal 0.52-1.04 [facility] Comment on above: Performed By: #### P REGQNT #### [facility] [address] [id number] Mikal Roselyn EGFR-AF ZAMBIAN >60 Normal >=60 The [facility] Comment on above: Performed By: #### P REGQNT #### [facility] [address] [place] [address] Mikal Roselyn EGFR-NON AF ZAMBIAN >60 Normal >=60 [facility] Comment on above: Performed By: #### P REGQNT #### [facility] [address] [place] [address] Mikal Roselyn Globulin (S) [Mass/Vol] 3.7 g/dL Normal [facility] Comment on above: Performed By: #### P REGQNT #### [facility] [address] [place] [address] Mikal Roselyn Glucose [Mass/Vol] 75 mg/dL Normal 74-106 The [facility] Comment on above: Performed By: #### P REGQNT #### [facility] [address] [place] [address] Mikal Roselyn Potassium [Moles/Vol] 4.2 mmol/L Normal 3.4-5.0 [facility] Comment on above: Performed By: #### P REGQNT #### [facility] [address] [place], [place] [phone] Mikal Roselyn Protein [Mass/Vol] 6.2 g/dL Normal 6.1-8.2 The [facility] Comment on above: Performed By: #### P REGQNT #### [facility] [address] [place] [address] Mikal Roselyn Sodium [Moles/Vol] 135 mmol/L Critically low 137-145 Th e [facility] Comment on above: Performed By: #### P REGQNT #### [facility] [address] [place] [address] Mikal Roselyn Urea nitrogen [Mass/Vol] 3.0 mg/dL Critically low 7.0-17.0 [facility] Comment on above: Performed By: #### P REGQNT #### [facility] [address] [place] [address] Mikal Roselyn Urea nitrogen/Creatinine [Mass ratio] 5.8 mg/mg Normal [facility] Comment on above: Performed By: #### P REGQNT #### [facility] [address] [place] [address] Mikal Roselyn UA (CLEAN/CATCH) BRICKLAYER/MICRO I F IND.on 02-18-2020 Bilirubin [Mass/Vol] Negative Normal NEGATIVE [facility] Comment on above: Performed By: #### P REGQNT #### [facility] [address] [place] [address] Mikal Roselyn BLOOD Negative Normal NEGATIVE [facility] Comment on above: Performed By: #### P REGQNT #### [facility] [address] [place] [address] Mikal Roselyn Clarity (U) SL CLOUDY Normal [facility] Comment on above: Performed By: #### P REGQNT #### [facility] [address] [place] [address] Mikal Roselyn Color (U) LT. YELLOW Normal YELLOW [facility] Comment on above: Performed By: #### P REGQNT #### [facility] [address] [place] [address] Mikal Roselyn Glucose [Mass/Vol] Negative Normal NEGATIVE [facility] Comment on above: Performed By: #### P REGQNT #### [facility] [address] [place] [address] Mikal Roselyn Ketones Ql (U) Negative Normal NEGATIVE The [facility] Comment on above: Performed By: #### P REGQNT #### [facility] [address] [place], [place] [id number] Mikal Roselyn Nitrite Ql (U) Negative Normal NEGATIVE The [facility] Comment on above: Performed By: #### P REGQNT #### [facility] [address] [place] [address] Mikal Roselyn pH (Bld) 6.5 Normal 5-9 [facility] Comment on above: Performed By: #### P REGQNT #### [facility] [address] [place] [address] Mikal Roselyn Protein [Mass/Vol] Negative Normal [facility] Comment on above: Performed By: #### P REGQNT #### [facility] [address] [place] [address] Mikal Roselyn SPEC GRAVITY 1.025 Normal 1.005-<=1.025 The [facility] Comment on above: Performed By: #### P REGQNT #### [facility] [address] [place] [address] Mikal Roselyn UR MICRO IND INDICATED Normal [facility] Comment on above: Performed By: #### P REGQNT #### [facility] [address] [place] [address] Mikalrena Dempsey Urobilinogen Qn (U) 1.0 EU/dl Normal [facility] Comment on above: Performed By: #### P REGQNT #### [facility] [address] [place] [address] Mikal Roselyn WBC (Bld) [#/Vol] SMALL Normal NEGATIVE The [facility] Comment on above: Performed By: #### P REGQNT #### [facility] [address] [place], [place] [id number] Mikal Roselyn URIC ACID SERUMon 02-18-2020 Urate [Mass/Vol] 3.1 mg/dL Normal 2.5-6.2 The [facility] Comment on above: Performed By: #### P REGQNT #### [facility] [address] [place] [address] Mikal Roselyn URINE MICROSCOPIC ONLYon Bacteria LM.HPF (Urine sed) [#/Area] SMALL Normal NONE SEEN The [facility] Comment on above: Performed By: #### P REGQNT #### [facility] [address] [place] [address] Mikal Roselyn CAST NONE SEEN Normal NONE SEEN [facility] Comment on above: Performed By: #### P REGQNT #### [facility] [address] [place] [address] Mikal Roselyn Crystals LM Nom (Urine sed) NONE SEEN Normal NONE SEEN [facility] Comment on above: Performed By: #### P REGQNT #### [facility] [address] [place] [address] Mikalrena Dempsey CULTURE INDICATED Normal [facility] Comment on above: Performed By: #### P REGQNT #### [facility] [address] [place] [address] Mikal Roselyn Epithelial cells LM.HPF (Urine sed) [#/Area] FEW Normal [facility] Comment on above: Performed By: #### P REGQNT #### [facility] [address] [place] [address] Mikal Roselyn MUCOUS SMALL Normal NONE SEEN The [facility] Comment on above: Performed By: #### P REGQNT #### [facility] [address] [place] [address] Mikal Roselyn RBC (U) [#/Vol] 0-2 Normal 0-2 [facility] Comment on above: Performed By: #### P REGQNT #### [facility] [address] [place] [address] Mikal Roselyn WBC (Bld) [#/Vol] 5-10 Normal NONE SEEN The [facility] Comment on above: Performed By: #### P REGQNT #### [facility] [address] [place] [address] Mikal Roselyn CBC AUTO DIFFon 01-03-2020 Basophils (Bld) [#/Vol] 0.0 103/ul Normal 0.0-0.1 [facility] Comment on above: Performed By: #### C BC #### [facility] [address], [place] [address] Mikal Roselyn Basophils/100 WBC (Bld) 0.4 % Normal 0.2-2.0 [facility] Comment on above: Performed By: #### C BC #### [facility] [address], [place] [address] Mikal Roselyn Eosinophils (Bld) [#/Vol] 0.1 103/ul Normal 0.0-0.7 [facility] Comment on above: Performed By: #### C BC #### [facility] [address] [place], [place] [address] Mikal Roselyn Eosinophils/100 WBC (Bld) 0.7 % Critically low 0.9-7.0 [facility] Comment on above: Performed By: #### C BC #### [facility] [address] [place], [place] [id number] Mikal Roselyn Erythrocyte distribution width (RBC) [Ratio] 13.7 % Normal 11.0-15.0 [facility] Comment on above: Performed By: #### C BC #### [facility] [address], [place] [address] Mikal Roselyn Hematocrit (Bld) [Volume fraction] 37.8 % Normal 36.0-48.0 [facility] Comment on above: Performed By: #### C BC #### [facility] [address] [place] [address] Mikal Roselyn Hemoglobin (Bld) [Mass/Vol] 12.8 g/dL Normal 12.0-16.0 [facility] Comment on above: Performed By: #### C BC #### [facility] [address], [place] [address] Mikal Roselyn IG # 0.09 10e3/ul Critically high 0.00-0.03 [facility] Comment on above: Performed By: #### C BC #### [facility] [address] [place] [id number] Mikal Roselyn IG % 1.2 % Critically high 0.0-0.5 [facility] Comment on above: Performed By: #### C BC #### [facility] [address] [place], [place] [address] Mikal Roselyn Lymphocytes (Bld) [#/Vol] 1.6 103/ul Normal 1.2-3.8 [facility] Comment on above: Performed By: #### C BC #### [facility] [address] [place], [place] [address] Mikal Roselyn Lymphocytes/100 WBC (Bld) 20.6 % Normal 20.5-60.0 [facility] Comment on above: Performed By: #### C BC #### [facility] [address] [place] [address] Mikal Roselyn MANUAL DIFF REQ NO Normal [facility] Comment on above: Performed By: #### C BC #### [facility] [address] [place] [address] Mikal Roselyn MCH (RBC) [Entitic mass] 31.4 pg Normal 26.7-34.0 [facility] Comment on above: Performed By: #### C BC #### [facility] [address] [place] [address] Mikal Roselyn MCHC (RBC) [Mass/Vol] 33.9 g/dL Normal 29.9-35.2 [facility] Comment on above: Performed By: #### C BC #### [facility] [address] [place] [address] Mikal Roselyn MCV (RBC) [Entitic vol] 92.6 fL Normal 81.0-99.0 [facility] Comment on above: Performed By: #### C BC #### [facility] [address] [place] [address] Mikal Roselyn Monocytes (Bld) [#/Vol] 0.9 103/ul Critically high 0.3-0.8 [facility] Comment on above: Performed By: #### C BC #### [facility] [address] [place] [address] Mikal Roselyn Monocytes/100 WBC (Bld) 12.0 % Normal 1.7-12.0 [facility] Comment on above: Performed By: #### C BC #### [facility] [address], [place] [address] Mikal Roselyn Neutrophils (Bld) [#/Vol] 4.9 103/ul Normal 1.4-6.5 [facility] Comment on above: Performed By: #### C BC #### [facility] [address], [place] [address] Mikalrena Dempsey Neutrophils/100 WBC (Bld) 65.1 % Normal 43.0-75.0 [facility] Comment on above: Performed By: #### C BC #### [facility] [address], [place] [address] Mikal Roselyn Platelet mean volume (Bld) [Entitic vol] 8.9 fL Critically low 9.5-13.5 [facility] Comment on above: Performed By: #### C BC #### [facility] [address], [place] [address] Mikal Roselyn Platelets (Bld) [#/Vol] 205 103/ul Normal 150-450 [facility] Comment on above: Performed By: #### C BC #### [facility] [address], [place] [address] Mikal Roselyn RBC (Bld) [#/Vol] 4.08 106/ul Critically low 4.20-5.40 [facility] Comment on above: Performed By: #### C BC #### [facility] [address], [place] [address] Mikalrena Hensleyen WBC (Bld) [#/Vol] 7.6 103/ul Normal 4.0-11.0 [facility] Comment on above: Performed By: #### C BC #### [facility] [address], [place] [address] Mikalrena Dempsey GLUCOSE - 1HRon 01-03-2020 Glucose [Mass/Vol] 87 mg/dL Normal 74-106 [facility] Comment on above: Performed By: #### C BC #### [facility] [address], [place] [address] Mikal Roselyn US PREG ANATOMY SINGLEon US PREG ANATOMY SINGLE EXAMINATION: US PREG ANATOMY SINGLE HISTORY: Gestation period, 20 weeks COMPARISON: No relevant comparison available. TECHNIQUE: Transabdominal sonographic examination was performed for obstetrical and evaluation. FINDINGS: Number: 1 Heart Rate: 142.1 bpm H.B. /min Amniotic Fluid Volume: Subjectively normal Placental Location: Posterior, the placental edge is 4.9 cm from the internal cervical os Cervix Length: 5 cm , closed Presentation: Breech Normally visualized anatomy: Cerebellum, choroid plexus, cisterna magna, lateral cerebral ventricles, orbits, midline falx, hard palate, four-chamber heart, RVOT, LVOT, stomach, kidneys, bladder, umbilical cord insertion into the abdomen, three-vessel cord, cervical spine, thoracic spine, lumbar spine, sacral spine, right upper extremity, left upper extremity, right lower extremity, left lower extremity Suboptimally visualized anatomy: None BIOMETRY: BPD: 4.4 cm 19 weeks 3 days HC: 16.7 cm 19 weeks 3 days AC: 14.8 cm 20 weeks 1 days FL: 3.3 cm 20 weeks 2 days EFW:330.2 grams; 33% FL/AC: 22.1 FL/BPD: 74.3 HC/AC: 1.1 GESTATIONAL AGE: Age by EDC: 20 weeks 2 days PETER by EDC: 04/18/2020 Age by current US: 19 weeks 6 days PETER by current US: 04/21/2020 IMPRESSION: Normal anatomy scan *Reference: [employer] Practice Guideline for the performance of Obstetric Ultrasound Examinations, April 12, 2007. Electronically authenticated by: VANCE DING Date: 2019-12-02 11:29 Normal [facility] PAP ACOG PANEL 3: 21 to 29on 10-07-2019 Age Gdln ACOG Testing 21-29 Normal [facility] Comment on above: Performed By: #### C BC #### [facility] [address], [place] [address] Mikal Dempsey Chlamydia, Nuc. Acid Amp Negative Normal Negative [facility] Comment on above: Result Comment: Perf ormed at: =G Performed By: #### C BC #### [facility] [address], [place] [address] Mikal Dempsey DIAGNOSIS: Comment Abnormal [facility] Comment on above: Result Comment: EPIT HELIAL CELL ABNORMALITY. ATYPICAL SQUAMOUS CELLS OF UNDETERMINED SIGNIFICANCE (ASC-US). Performed at: WB Performed By: #### C BC #### [facility] [address] [place] [address] Mikal Dempsey Electronically signed by: Comment Normal [facility] Comment on above: Result Comment: Aretha Cheng MD, Pathologist Performed at: WB Performed By: #### C BC #### [facility] [address] [place] [address] Mikal Dempsey Gonococcus, Nuc. Acid Amp Negative Normal Negative [facility] Comment on above: Result Comment: Perf ormed at: =G Performed By: #### C BC #### [facility] [address] [place] [address] Mikal Dempsey HPV Aptima Positive Abnormal Negative [facility] Comment on above: Result Comment: This nucleic acid amplification test detects fourteen high-risk HPV types (16,18,31,33,35,39,45,51,52,56,58,59,66,68) without differentiation. Performed By: #### C BC #### [facility] [address] [place] [address] Mikal Dempsey Methodology: Comment Normal [facility] Comment on above: Result Comment: This liquid based ThinPrep(R) pap test was screened with the use of an image guided system. Performed at: WB Performed By: #### C BC #### [facility] [address] [place] [address] Mikal Dempsey Note: Comment Normal [facility] Comment on above: Result Comment: The Pap smear is a screening test designed to aid in the detection of premalignant and malignant conditions of the uterine cervix. It is not a diagnostic procedure and should not be used as the sole means of detecting cervical cancer. Both false-positive and false-negative reports do occur. . Performed at: WB Performed By: #### C BC #### [facility] [address] [place] [address] Mikal Dempsey Pathologist Provided ICD10 Comment Normal [facility] Comment on above: Result Comment: [id number] Performed at: WB Performed By: #### C BC #### [facility] [address] [place] [address] Mikal Dempsey Performed by: Comment Normal [facility] Comment on above: Result Comment: Perry Dial, Process Improvement Specialist (ASCP) Performed at: WB Performed By: #### C BC #### [facility] [address] [place] [address] Mikal Dempsey Recommendation: Comment Abnormal [facility] Comment on above: Result Comment: Sugg est follow up as clinically appropriate. Performed at: WB Performed By: #### C BC #### [facility] [address] [place] [address] Mikal Dempsey Reflex Criteria: Comment Normal [facility] Comment on above: Result Comment: See below for HPV testing results. . Performed at: WB Performed By: #### C BC #### [facility] [address] [place] [address] Mikal Dempsey Specimen adequacy: Comment Normal [facility] Comment on above: Result Comment: Sati sfactory for evaluation. No endocervical component is identified. An endocervical component is not commonly seen in the patient. Performed at: WB Performed By: #### C BC #### [facility] [address] [place] [address] Mikal Roselyn . . Normal [facility] Comment on above: Result Comment: Perf ormed at: WB Performed By: #### C BC #### [facility] [address] [place] [address] Mikal Roselyn US PREG TVon 09-15-2019 US PREG TV Begin Addendum # 1 CORRECTION: Patient's PETER by LMP should state 2020-04-11 Original Report EXAMINATION: US PREG TV HISTORY: Secondary physiologic amenorrhea COMPARISON: No relevant comparison available. FINDINGS: GESTATIONAL SAC: Present and normal appearing. POLE: Present and normal appearing. YOLK SAC: Present. CARDIAC: Present. UTERUS: Normal size and appearance. OVARIES: Right: Normal. Left: Normal. CERVIX: 3.6 cm in length and closed. CUL-DE-SAC: Normal. OTHER: None. AGE BY LMP: 9 weeks, 0 days PETER BY LMP: 2019-07-06 AGE BY US CRL: 8 weeks, 0 days PETER BY US CRL: 2020-04-18 IMPRESSION: Single live intrauterine . Normal [facility] BUNon 09-05-2019 Urea nitrogen [Mass/Vol] 8.0 mg/dL Normal 7.0-17.0 [facility] Comment on above: Performed By: #### Agustin WHITE UAMIC #### [facility] [address] [place] [id number] Mikal Roselyn CBC AUTO DIFFon 09-05-2019 Basophils (Bld) [#/Vol] 0.0 103/ul Normal 0.0-0.1 [facility] Comment on above: Performed By: #### MARLEN HIGGINSMIC #### [facility] [address] [place], [place] [id number] Mikal Roselyn Basophils/100 WBC (Bld) 0.5 % Normal 0.2-2.0 [facility] Comment on above: Performed By: #### Agustin WHITE UAMIC #### [facility] [address] [place], [place] [id number] Mikal Roselyn Eosinophils (Bld) [#/Vol] 0.0 103/ul Normal 0.0-0.7 [facility] Comment on above: Performed By: #### MARLEN HIGGINSMIC #### [facility] [address] [place], [place] [id number] Mikal Roselyn Eosinophils/100 WBC (Bld) 0.2 % Critically low 0.9-7.0 [facility] Comment on above: Performed By: #### Agustin WHITE UAMIC #### [facility] [address] [place], [place] [id number] Mikal Roselyn Erythrocyte distribution width (RBC) [Ratio] 12.8 % Normal 11.0-15.0 [facility] Comment on above: Performed By: #### MARLEN HIGGINSMIC #### [facility] [address] [place], [place] [id number] Mikal Roselyn Hematocrit (Bld) [Volume fraction] 40.0 % Normal 36.0-48.0 [facility] Comment on above: Performed By: #### Agustin WHITE UAMIC #### [facility] [address] [place], [place] [id number] Mikal Roselyn Hemoglobin (Bld) [Mass/Vol] 13.7 g/dL Normal 12.0-16.0 [facility] Comment on above: Performed By: #### D CHRISTOPHER, UAMIC #### [facility] [address] [place], [place] [address] Mikal Roselyn IG # 0.01 10e3/ul Normal 0.00-0.03 [facility] Comment on above: Performed By: #### D CHRISTOPHER UAMIC #### [facility] [address] [place], [place] [address] Mikal Roselyn IG % 0.2 % Normal 0.0-0.5 [facility] Comment on above: Performed By: #### Agustin WHITE UAMIC #### [facility] [address] [place], [place] [address] Mikal Roselyn Lymphocytes (Bld) [#/Vol] 1.5 103/ul Normal 1.2-3.8 [facility] Comment on above: Performed By: #### Agustin WHITE UAMIC #### [facility] [address] [place], [place] [address] Mikal Roselyn Lymphocytes/100 WBC (Bld) 24.3 % Normal 20.5-60.0 [facility] Comment on above: Performed By: #### Agustin WHITE UAMIC #### [facility] [address] [place], [place] [address] Mikal Roselyn MANUAL DIFF REQ NO Normal [facility] Comment on above: Performed By: #### D CHRISTOPHER UAMIC #### [facility] [address] [place], [place] [id number] Mikal Roselyn MCH (RBC) [Entitic mass] 29.8 pg Normal 26.7-34.0 [facility] Comment on above: Performed By: #### D CHRISTOPHER, UAMIC #### [facility] [address] [place], [place] [id number] Mikal Roselyn MCHC (RBC) [Mass/Vol] 34.3 g/dL Normal 29.9-35.2 [facility] Comment on above: Performed By: #### D CHRISTOPHER UAMIC #### [facility] [address] [place], [place] [id number] Mikal Roselyn MCV (RBC) [Entitic vol] 87.1 fL Normal 81.0-99.0 [facility] Comment on above: Performed By: #### Agustin WHITE UAMIC #### [facility] [address] [place], [place] [id number] Mikal Roselyn Monocytes (Bld) [#/Vol] 0.7 103/ul Normal 0.3-0.8 [facility] Comment on above: Performed By: #### Agustin WHITE UAMIC #### [facility] [address] [place], [place] [address] Mikal Roeslyn Monocytes/100 WBC (Bld) 11.2 % Normal 1.7-12.0 [facility] Comment on above: Performed By: #### Agustin WHITE UAMIC #### [facility] [address] [place], [place] [address] Mikal Roselyn Neutrophils (Bld) [#/Vol] 4.0 103/ul Normal 1.4-6.5 [facility] Comment on above: Performed By: #### Agustin WHITE UAMIC #### [facility] [address] [place], [place] [address] Mikal Roselyn Neutrophils/100 WBC (Bld) 63.6 % Normal 43.0-75.0 [facility] Comment on above: Performed By: #### Agustin WHITE UAMIC #### [facility] [address] [place], [place] [id number] Mikal Roselyn Platelet mean volume (Bld) [Entitic vol] 8.9 fL Critically low 9.5-13.5 [facility] Comment on above: Performed By: #### Agustin WHITE UAMIC #### [facility] [address] [place] [address] Mikal Roselyn Platelets (Bld) [#/Vol] 260 103/ul Normal 150-450 [facility] Comment on above: Performed By: #### D CHRISTOPHER UAMIC #### [facility] [address] [place] [id number] Mikal Dempsey RBC (Bld) [#/Vol] 4.59 106/ul Normal 4.20-5.40 [facility] Comment on above: Performed By: #### D CHRISTOPHER UAMIC #### [facility] [address] [place], [place] [id number] Mikalrena Dempsey WBC (Bld) [#/Vol] 6.3 103/ul Normal 4.0-11.0 [facility] Comment on above: Performed By: #### D CHRISTOPHER UAMIC #### [facility] [address] [place], [place] [id number] Mikal Roselyn CREATININEon 09-05-2019 Creatinine [Mass/Vol] mg/dL Normal >=60 [facility] Comment on above: Performed By: #### Agustin WHITE UAMIC #### [facility] [address] [place] [address] Mikal Roselyn Creatinine [Mass/Vol] 0.65 mg/dL Normal 0.52-1.04 [facility] Comment on above: Performed By: #### Agustin WHITE UAMIC #### [facility] [address] [place] [address] Mikal Roselyn CREATININE CLEARon 0 CREA CLEARANCE 136.03 ml/min Critically high 75.00-115.00 [facility] Comment on above: Performed By: #### Agustin WHITE UAMIC #### [facility] [address] [place] [address] Mikal Roselyn CREA, 24 HR UR 1287.99 mg/24 hr Normal 800.00-1, 800. 00 [facility] Comment on above: Performed By: #### Agustin WHITE UAMIC #### [facility] [address] [place] [address] Mikal Roselyn UR TOT VOL 900 ml/24 HR Normal [facility] Comment on above: Performed By: #### Agustin WHITE UAMIC #### [facility] [address], [place] [address] Mikalrena Dempsey URINE CREAT 143.11 mg/dL Normal 20.00-300.00 [facility] Comment on above: Performed By: #### Agustin WHITE UAMIC #### [facility] [address], [place] [address] Mikal Dempsey GLUCOSE - 1HRon 09-05-2019 Glucose [Mass/Vol] 94 mg/dL Normal 74-106 [facility] Comment on above: Performed By: #### C BC #### [facility] [address], [place] [address] Mikal Dempsey LDHon 09-05-2019 LDH 137 U/L Normal 122-222 [facility] Comment on above: Performed By: #### C BC #### [facility] [address] [place] [address] Mikal Dempsey PROTEIN 24HR URINEon 020 T PROT, 24 HR UR 127.8 mg/24 hr Normal 42.0-225.0 [facility] Comment on above: Performed By: #### D CHRISTOPHER UAMIC #### [facility] [address] [place] [address] Mikalrena Dempsey UR PROT 14.2 mg/dL Critically high <=12.0 [facility] Comment on above: Performed By: #### Agustin WHITE UAMIC #### [facility] [address] [place] [address] Mikal Dempsey SGOTon 09-05-2019 AST [Catalytic activity/Vol] 14 U/L Normal 14-36 [facility] Comment on above: Performed By: #### D CHRISTOPHER UAMIC #### [facility] [address] [place] [address] Mikal Dempsey SGPTon 09-05-2019 ALT [Catalytic activity/Vol] 26 U/L Normal 9-52 [facility] Comment on above: Performed By: #### C BC #### [facility] [address] [place] [address] Mikal Dempsey TSHon 09-05-2019 TSH Qn 0.807 uIU/mL Normal 0.470-4.680 [facility] Comment on above: Performed By: #### C BC #### [facility] [address] [place] [address] Mikal Dempsey TSH Qn SEE BELOW Normal [facility] Comment on above: Result Comment: <0.3 4 UIU/ml HYPERTHYROID 0.34-5.60 UIU/ml EUTHYROID >5.60 UIU/ml HYPOTHYROID Performed By: #### C BC #### [facility] [address] [place] [address] Mikal Dempsey URIC ACID SERUMon 09-05-2019 Urate [Mass/Vol] 3.5 mg/dL Normal 2.5-6.2 [facility] Comment on above: Performed By: #### C BC #### [facility] [address] [place] [address] Mikal Dempsey HEP B SURFACE ANTIGEN SCREEN on 09-01-2019 HBsAg Screen Negative Normal Negative [facility] Comment on above: Performed By: #### H BSANS #### [facility] [address] [place] [address] Mikal Dempsey HEPATITIIS C VIRUS ANTIBODYo n 09-01-2019 Hep C Virus Ab <0.1 Normal 0.0-0.9 [facility] Comment on above: Result Comment: Nega tive: < 0.8 Indeterminate: 0.8 - 0.9 Positive: > 0.9 . The CDC recommends that a positive HCV antibody result be followed up with a HCV Nucleic Acid Amplification test (531087). Performed By: #### H CV #### [facility] [address] [place] [address] Mikal Dempsey HGB(ELECTP) FRACTION PROFILE on 09-01-2019 Hemoglobin (Bld) [Mass/Vol] 97.5 % Normal 96.4-98.8 [facility] Comment on above: Performed By: #### D RUGRPD, UAMIC #### [facility] [address] [place] [address] Mikal Dempsey Hgb A2 2.5 % Normal 1.8-3.2 [facility] Comment on above: Performed By: #### D CHRISTOPHER UAMIC #### [facility] [address] [place] [address] Mikal Roselyn Hgb C 0.0 % Normal 0.0 [facility] Comment on above: Performed By: #### D CHRISTOPHER UAMIC #### [facility] [address] [place] [address] Mikal Roselyn Hgb F 0.0 % Normal 0.0-2.0 [facility] Comment on above: Performed By: #### D CHRISTOPHER UAMIC #### [facility] [address] [place] [address] Mikal Roselyn Hgb S 0.0 % Normal 0.0 [facility] Comment on above: Performed By: #### D CHRISTOPHER UAMIC #### [facility] [address] [place] [address] Mikal Roselyn Hgb Solubility Negative Normal Negative [facility] Comment on above: Performed By: #### D CHRISTOPHER UAMIC #### [facility] [address] [place] [address] Mikal Roselyn Hgb Variant Normal [facility] Comment on above: Performed By: #### D CHRISTOPHER UAMIC #### [facility] [address] [place] [address] Mikal Roselyn Interpretation Comment Normal [facility] Comment on above: Result Comment: Norm al adult hemoglobin present. Performed By: #### D CHRISTOPHER UAMIC #### [facility] [address] [place] [address] Mikalrena Hensleyen HIV 1 AND 2 WITH REFLEXon HIV Screen 4th Generation wRfx Non Reactive Normal Non Reactive [facility] Comment on above: Performed By: #### H IV12 #### [facility] [address] [place] [address] Mikalrena Dempsey RPR QUANTon 09-01-2019 Rapid Plasma Reagin, Quant Non Reactive Normal NonRea<1:1 [facility] Comment on above: Performed By: #### D CHRISTOPHER UAMIC #### [facility] [address] [place], [place] [id number] Mikal Dempsey RUBELLA AB IGGon 09-01-2019 Rubella Antibodies, IgG 1.49 index Normal Immune >0.99 [facility] Comment on above: Result Comment: Non- immune <0.90 Equivocal 0.90 - 0.99 Immune >0.99 Performed By: #### D CHRISTOPHER UAMIC #### [facility] [address] [place], [place] [id number] Mikal Roselyn VARICELLA IGG ABon 0 Varicella Zoster IgG <135 Critically low Immune >165 [facility] Comment on above: Result Comment: Nega tive <135 Equivocal 135 - 165 Positive >165 A positive result generally indicates exposure to the pathogen or administration of specific immunoglobulins, but it is not indication of active infection or stage of disease. Performed By: #### D CHRISTOPHER UAMIC #### [facility] [address] [place], [place] [id number] Mikal Roselyn TYPE AND SCREENon 08-31-2019 TYPE AND SCREEN Negative Normal [facility] Comment on above: Performed By: #### T NS #### [facility] [address] [place], [place] [id number] Mikal Roselyn CBC AUTO DIFFon 08-30-2019 Basophils (Bld) [#/Vol] 0.1 103/ul Normal 0.0-0.1 [facility] Comment on above: Performed By: #### C BC #### [facility] [address] [place], [place] [id number] Mikal Roselyn Basophils/100 WBC (Bld) 0.7 % Normal 0.2-2.0 [facility] Comment on above: Performed By: #### C BC #### [facility] [address] [place] [address] Mikal Roselyn Eosinophils (Bld) [#/Vol] 0.0 103/ul Normal 0.0-0.7 [facility] Comment on above: Performed By: #### C BC #### [facility] [address] [place], [place] [id number] Mikal Roselyn Eosinophils/100 WBC (Bld) 0.3 % Critically low 0.9-7.0 [facility] Comment on above: Performed By: #### C BC #### [facility] [address] [place] [address] Mikal Roselyn Erythrocyte distribution width (RBC) [Ratio] 13.2 % Normal 11.0-15.0 [facility] Comment on above: Performed By: #### C BC #### [facility] [address] [place] [address] Mikal Roselyn Hematocrit (Bld) [Volume fraction] 43.0 % Normal 36.0-48.0 [facility] Comment on above: Performed By: #### C BC #### [facility] [address] [place] [address] Mikal Roselyn Hemoglobin (Bld) [Mass/Vol] 14.1 g/dL Normal 12.0-16.0 [facility] Comment on above: Performed By: #### C BC #### [facility] [address] [place] [address] Mikal Roselyn IG # 0.02 10e3/ul Normal 0.00-0.03 [facility] Comment on above: Performed By: #### C BC #### [facility] [address] [place] [address] Mikal Roselyn IG % 0.3 % Normal 0.0-0.5 [facility] Comment on above: Performed By: #### C BC #### [facility] [address] [place] [address] Mikal Roselyn Lymphocytes (Bld) [#/Vol] 1.7 103/ul Normal 1.2-3.8 [facility] Comment on above: Performed By: #### C BC #### [facility] [address] [place], [place] [id number] Mikal Roselyn Lymphocytes/100 WBC (Bld) 23.4 % Normal 20.5-60.0 [facility] Comment on above: Performed By: #### C BC #### [facility] [address] [place], [place] [id number] Mikal Roselyn MANUAL DIFF REQ NO Normal [facility] Comment on above: Performed By: #### C BC #### [facility] [address] [place], [place] [address] Mikal Roselyn MCH (RBC) [Entitic mass] 29.3 pg Normal 26.7-34.0 [facility] Comment on above: Performed By: #### C BC #### [facility] [address] [place], [place] [address] Mikal Roselyn MCHC (RBC) [Mass/Vol] 32.8 g/dL Normal 29.9-35.2 [facility] Comment on above: Performed By: #### C BC #### [facility] [address] [place], [place] [address] Mikal Roselyn MCV (RBC) [Entitic vol] 89.4 fL Normal 81.0-99.0 [facility] Comment on above: Performed By: #### C BC #### [facility] [address] [place] [address] Mikal Roselyn Monocytes (Bld) [#/Vol] 0.6 103/ul Normal 0.3-0.8 [facility] Comment on above: Performed By: #### C BC #### [facility] [address] [place] [address] Mikal Roselyn Monocytes/100 WBC (Bld) 8.6 % Normal 1.7-12.0 [facility] Comment on above: Performed By: #### C BC #### [facility] [address] [place] [address] Mikal Roselyn Neutrophils (Bld) [#/Vol] 4.9 103/ul Normal 1.4-6.5 [facility] Comment on above: Performed By: #### C BC #### [facility] [address] [place] [address] Miakl Orselyn Neutrophils/100 WBC (Bld) 66.7 % Normal 43.0-75.0 [facility] Comment on above: Performed By: #### C BC #### [facility] [address] [place], [place] [address] Mikal Roselyn Platelet mean volume (Bld) [Entitic vol] 9.7 fL Normal 9.5-13.5 [facility] Comment on above: Performed By: #### C BC #### [facility] [address] [place], [place] [id number] Mikal Dempsey Platelets (Bld) [#/Vol] 304 103/ul Normal 150-450 [facility] Comment on above: Performed By: #### C BC #### [facility] [address] [place], [place] [id number] Mikal Dempsey RBC (Bld) [#/Vol] 4.81 106/ul Normal 4.20-5.40 [facility] Comment on above: Performed By: #### C BC #### [facility] [address] [place], [place] [id number] Mikal Dempsey WBC (Bld) [#/Vol] 7.4 103/ul Normal 4.0-11.0 [facility] Comment on above: Performed By: #### C BC #### [facility] [address] [place], [place] [id number] Mikal Dempsey CULTURE URINEon 08-30-2019 CULTURE URINE Culture Observations : Light growth of mixed genital sierra.No potential pathogens seen. Normal [facility] Comment on above: Performed By: #### U RCX #### [facility] [address] [place], [place] [id number] Mikal Hensleyen DRUG SCREEN RAPID (URINE)on 08-30-2019 AMP Negative Normal NEGATIVE [facility] Comment on above: Performed By: #### D CHRISTOPHER UAMIC #### [facility] [address] [place], [place] [id number] Mikal Roselyn BAR Negative Normal NEGATIVE [facility] Comment on above: Performed By: #### D MARYBETHD, UAMIC #### [facility] [address] [place], [place] [id number] Mikal Roselyn BUP Negative Normal NEGATIVE [facility] Comment on above: Performed By: #### D MARYBETHD, UAMIC #### [facility] [address] [place], [place] [id number] Mikal Roselyn BZO Negative Normal NEGATIVE [facility] Comment on above: Performed By: #### D CHRISTOPHER UAMIC #### [facility] [address] [place] [address] Mikal Roselyn MADDY Positive Normal NEGATIVE [facility] Comment on above: Performed By: #### D CHRISTOPHER UAMIC #### [facility] [address] [place] [address] Mikal Roselyn CUT-OFFS SEE BELOW Normal [facility] Comment on above: Result Comment: AMP (Amphetamine): 500ng/mL, BAR (Barbituates): 200 ng/mL, BZO (Benzodiazepines): 150 ng/mL, BUP (Buprenorphine): 10 ng/mL, MADDY (Cocaine): 150 ng/mL, mAMP (Methamphetamine): 500 ng/mL, MTD (Methadone): 200 ng/mL, OPI (Opiates): 100 ng/mL or 2000 ng/mL, OXY (Oxycodone): 100 ng/mL, PCP (Phencyclidine): 25 ng/mL, PPX (Propoxyphene): 300 ng/mL, THC (Cannabinoids): 50 ng/mL, TCA (Trycyclic Antidepressants): 300 ng/mL Performed By: #### D CHRISTOPHER UAMIC #### [facility] [address] [place] [address] Mikal Roselyn DRUG CUT HEADER DRUG CLASS TEST SYST EM CUT-OFF CONCENTRATIONS ARE FOLLOWS: Normal [facility] Comment on above: Performed By: #### Agustin WHITE UAMIC #### [facility] [address] [place] [address] Mikal Roselyn mAMP Negative Normal NEGATIVE [facility] Comment on above: Performed By: #### Agustin WHITE UAMIC #### [facility] [address] [place] [address] Mikal Roselyn MTD Negative Normal NEGATIVE [facility] Comment on above: Performed By: #### Agustin WHITE UAMIC #### [facility] [address] [place] [address] Mikal Roselyn OPI Negative Normal NEGATIVE [facility] Comment on above: Performed By: #### Agustin WHITE UAMIC #### [facility] [address] [place] [address] Mikal Roselyn OXY Negative Normal NEGATIVE [facility] Comment on above: Performed By: #### D CHRISTOPHER, UAMIC #### [facility] [address] [place] [address] Mikal Dempsye PCP Negative Normal NEGATIVE [facility] Comment on above: Performed By: #### D MARYBETHD, UAMIC #### [facility] [address] [place] [address] Mikal Dempsey PPX Negative Normal NEGATIVE [facility] Comment on above: Performed By: #### D CHRISTOPHER, UAMIC #### [facility] [address] [place] [address] Mikal Dempsey TCA Negative Normal NEGATIVE [facility] Comment on above: Performed By: #### D CHRISTOPHER, UAMIC #### [facility] [address] [place] [address] Mikal Dempsey THC Negative Normal NEGATIVE [facility] Comment on above: Performed By: #### D CHRISTOPHER, UAMIC #### [facility] [address] [place] [address] Mikal Dempsey GLYCOHEMOGLOBIN A1Con 2019 Glucose [Mass/Vol] 85 mg/dL Normal [facility] Comment on above: Performed By: #### A 1C #### [facility] [address] [place] [address] Mikal Dempsey HbA1c (Bld) [Mass fraction] 4.6 % Normal <=6.0 [facility] Comment on above: Performed By: #### A 1C #### [facility] [address] [place] [address] Mikal Dempsey PREG QUANT HCGon 08-30-2019 HCG QUANT 31225.00 mIU/mL Normal [facility] Comment on above: Performed By: #### P REGQNT #### [facility] [address] [place] [address] Mikal Dempsey HCG RANGE SEE BELOW Normal [facility] Comment on above: Result Comment: 5-50 0-1 WEEK 40-300 1-2 WEEKS 100-1,000 2-3 WEEKS 500-6,000 3-4 WEEKS 5,000-200,000 1-2 MONTHS 10,000-100,000 2-3 MONTHS 3,000-50,000 2ND TRIMESTER 1,000-50,000 3RD TRIMESTER Performed By: #### P REGQNT #### [facility] [address] [place] [address] Mikal Roselyn UA RANDOM W/MICROSCOPICon Bacteria LM.HPF (Urine sed) [#/Area] SMALL Normal NONE SEEN The [facility] Comment on above: Performed By: #### D CHRISTOPHER UAMIC #### [facility] [address] [place] [address] Mikal Roselyn Bilirubin [Mass/Vol] Negative Normal NEGATIVE [facility] Comment on above: Performed By: #### D CHRISTOPHER UAMIC #### [facility] [address] [place] [address] Mikal Roselyn BLOOD Negative Normal NEGATIVE [facility] Comment on above: Performed By: #### Agustin WHITE UAMIC #### [facility] [address] [place] [address] Mikal Roselyn CAST NONE SEEN Normal NONE SEEN [facility] Comment on above: Performed By: #### D CHRISTOPHER UAMIC #### [facility] [address] [place] [address] Mikal Roselyn Clarity (U) CLEAR Normal [facility] Comment on above: Performed By: #### Agustin WHITE UAMIC #### [facility] [address] [place] [address] Mikal Roselyn Color (U) YELLOW Normal YELLOW [facility] Comment on above: Performed By: #### D CHRISTOPHER UAMIC #### [facility] [address] [place] [address] Mikal Roselyn Crystals LM Nom (Urine sed) NONE SEEN Normal NONE SEEN [facility] Comment on above: Performed By: #### Agustin WHITE UAMIC #### [facility] [address] [place] [address] Mikal Roselyn Epithelial cells LM.HPF (Urine sed) [#/Area] FEW Normal [facility] Comment on above: Performed By: #### D CHRISTOPHER UAMIC #### [facility] [address] [place] [id number] Mikal Roselyn Glucose [Mass/Vol] Negative Normal NEGATIVE [facility] Comment on above: Performed By: #### D CHRISTOPHER UAMIC #### [facility] [address] [place] [id number] Mikal Roselyn Ketones Ql (U) Negative Normal NEGATIVE [facility] Comment on above: Performed By: #### D CHRISTOPHER UAMIC #### [facility] [address] [place] [id number] Mikal Roselyn MUCOUS MODERATE Normal NONE SEEN [facility] Comment on above: Performed By: #### D CHRISTOPHER UAMIC #### [facility] [address] [place], [place] [id number] Mikal Roselyn Nitrite Ql (U) Negative Normal NEGATIVE [facility] Comment on above: Performed By: #### D CHRISTOPHER UAMIC #### [facility] [address] [place] [address] Mikal Roselyn pH (Bld) 6.0 Normal 5-9 [facility] Comment on above: Performed By: #### D CHRISTOPHER UAMIC #### [facility] [address] [place], [place] [id number] Mikal Roselyn Protein [Mass/Vol] Negative Normal [facility] Comment on above: Performed By: #### D CHRISTOPHER UAMIC #### [facility] [address] [place] [id number] Mikal Roselyn RBC (Bld) [#/Vol] 0-2 Normal 0-2 [facility] Comment on above: Performed By: #### D CHRISTOPHER UAMIC #### [facility] [address] [place], [place] [id number] Mikal Roselyn SPEC GRAVITY 1.025 Normal 1.005-<=1.025 [facility] Comment on above: Performed By: #### D CHRISTOPHER UAMIC #### [facility] [address] [place], [place] [id number] Mikal Roselyn Urobilinogen Qn (U) 0.2 EU/dl Normal The [facility] Comment on above: Performed By: #### D MARYBETHD, UAMIC #### [facility] [address] [place], [place] [address] Mikal Roselyn WBC (Bld) [#/Vol] Negative Normal NEGATIVE [facility] Comment on above: Performed By: #### D MARYBETHD, UAMIC #### [facility] [address] [place] [id number] Mikal Roselyn WBC (Bld) [#/Vol] 2-5 Normal NONE SEEN The [facility] Comment on above: Performed By: #### D MARYBETHD, UAMIC #### [facility] [address] [place], [place] [address] Mikal Dempsey Encounters Encounter Date Encounter Type Care Provider Facility Start: 06-23-2023 End: 06-23-2023 Emergency department patient visit Caden Lauren Facility:[facility] Start: 05-28-2023 End: 05-28-2023 ambulatory JOSE MARTEL Not Available Start: 03-21-2023 End: 03-21-2023 Emergency department patient visit Armando Nieto Facility:[facility] Start: 04-17-2020 Patient encounter procedure SHAHNAZ CORONA Facility:[facility] Start: 04-10-2020 End: 04-13-2020 Evaluation and management of inpatient ALEXANDER CONLEY Facility:[facility] Start: 04-05-2020 End: 04-06-2020 Patient encounter procedure SHAHNAZ CORONA Facility:[facility] Start: 04-03-2020 End: 04-03-2020 Patient encounter procedure CAREN WHARTON Facility:[facility] Start: 03-27-2020 End: 03-27-2020 Patient encounter procedure SHAHNAZ CORONA Facility:[facility] Start: 03-21-2020 End: 03-21-2020 Patient encounter procedure SHAHNAZ CORONA Facility:[facility] Start: 03-21-2020 End: 03-21-2020 Patient encounter procedure SHAHNAZ CORONA Facility:[facility] Start: 03-12-2020 End: 03-13-2020 Patient encounter procedure SHAHNAZ CORONA Facility:[facility] Start: 02-22-2020 End: 02-23-2020 Patient encounter procedure SHAHNAZ CORONA Facility:[facility] Start: 02-19-2020 End: 02-19-2020 Patient encounter procedure CAREN WHARTON Facility:[facility] Start: 02-18-2020 End: 02-19-2020 Patient encounter procedure CAREN WHARTON Facility:[facility] Start: 01-03-2020 End: 01-04-2020 Patient encounter procedure SHAHNAZ CORONA Facility:[facility] Start: 12-02-2019 End: 12-03-2019 Patient encounter procedure SHAHNAZ CORONA Facility:[facility] Start: 10-03-2019 End: 10-03-2019 Patient encounter procedure SHAHNAZ CORONA Facility:[facility] Start: 09-07-2019 End: 09-08-2019 Patient encounter procedure SHAHNAZ CORONA Facility:[facility] Start: 09-05-2019 End: 09-06-2019 Patient encounter procedure SHAHNAZ CORONA Facility:[facility] Start: 08-30-2019 End: 08-31-2019 Patient encounter procedure SHAHNAZ CORONA Facility:[facility] Procedures Date Procedure Procedure Detail Performing Clinician Start: 04-12-2020 Insertion of Contrac eptive Device into Left Upper Arm Subcutaneous Tissue and Fascia, Percutaneous Approach SHAHNAZ CORONA Start: 04-11-2020 Delivery of Products of Conception, External Approach SHAHNAZ CORONA Start: 04-11-2020 Drainage of Amniotic Fluid, Therapeutic from Products of Conception, Via Natural or Artificial Opening SHAHNAZ CORONA Start: 04-10-2020 Introduction of Horm one into Female Reproductive, Via Natural or Artificial Opening SHAHNAZ CORONA Payers Date Payer Category Payer Medicaid [id number] 1997 Unknown [id number] 2.16.84 [id number] 1997 Unknown [id number] 2.16.84 0.1.970603.3.579.2.593 1997 Unknown [id number] 2.16.84 0.1.222302.3.579.2.593 1997 Unknown [id number] 2.16.84 0.1.889851.3.579.2.593 1997 Unknown [id number] 2.16.84 0.1.438991.3.579.2.593 1997 Unknown [id number] 2.16.84 0.1.918418.3.579.2.593 1997 Unknown [id number] 2.16.84 0.1.693299.3.579.2.593 1997 Unknown [id number] 2.16.84 0.1.027450.3.579.2.593 1997 Unknown [id number] 2.16.84 0.1.746076.3.579.2.593 1997 Unknown [id number] 2.16.84 0.1.131854.3.579.2.593 1997 Unknown [id number] 2.16.84 0.1.486494.3.579.2.593 1997 Unknown [id number] 2.16.84 0.1.588780.3.579.2.593 1997 Unknown [id number] 2.16.84 0.1.608980.3.579.2.593 1997 Unknown [id number] 2.16.84 0.1.069161.3.579.2.593 1997 Unknown [id number] 2.16.84 0.1.985643.3.579.2.593 1997 Unknown [id number] 2.16.84 0.1.557987.3.579.2.593 1997 Unknown [id number] 2.16.84 0.1.207292.3.579.2.593 1997 Unknown [id number] 2.16.840 .1.441764.3.579.2.1259 1997 Unknown [id number] 2.16.8 40.1.819522.3.579.2.718 1997 Unknown [id number] 2.16.8 40.1.056592.3.579.2.718 1959 Self-pay [id number] 1959 Unknown [id number] Clinical Note 06-23-2023 Note Date & Type Note Facility 06-23-2023 Note Education Materials Infectious Disease Sinus Infection, Adult A sinus infection, also called sinusitis, is inflammation of your sinuses. Sinuses are hollow spaces in the bones around your face. Your sinuses are located: ? Around your eyes. ? In the middle of your forehead. ? Behind your nose. ? In your cheekbones. Mucus normally drains out of your sinuses. When your nasal tissues become inflamed or swollen, mucus can become trapped or blocked. This allows bacteria, viruses, and fungi to grow, which leads to infection. Most infections of the sinuses are caused by a virus. A sinus infection can develop quickly. It can last for up to 4 weeks (acute) or for more than 12 weeks (chronic). A sinus infection often develops after a cold. What are the causes? This condition is caused by anything that creates swelling in the sinuses or stops mucus from draining. This includes: ? Allergies. ? Asthma. ? Infection from bacteria or viruses. ? Deformities or blockages in your nose or sinuses. ? Abnormal growths in the nose (nasal polyps). ? Pollutants, such as chemicals or irritants in the air. ? Infection from fungi. This is rare. What increases the risk? You are more likely to develop this condition if you: ? Have a weak body defense system (immune system). ? Do a lot of swimming or diving. ? Overuse nasal sprays. ? Smoke. What are the signs or symptoms? The main symptoms of this condition are pain and a feeling of pressure around the affected sinuses. Other symptoms include: ? Stuffy nose or congestion that makes it difficult to breathe through your nose. ? Thick yellow or greenish drainage from your nose. ? Tenderness, swelling, and warmth over the affected sinuses. ? A cough that may get worse at night. ? Decreased sense of smell and taste. ? Extra mucus that collects in the throat or the back of the nose (postnasal drip) causing a sore throat or bad breath. ? Tiredness (fatigue). ? Fever. How is this diagnosed? This condition is diagnosed based on: ? Your symptoms. ? Your medical history. ? A physical exam. ? Tests to find out if your condition is acute or chronic. This may include: ? Checking your nose for nasal polyps. ? Viewing your sinuses using a device that has a light (endoscope). ? Testing for allergies or bacteria. ? Imaging tests, such as an MRI or CT scan. In rare cases, a bone biopsy may be done to rule out more serious types of fungal sinus disease. How is this treated? Treatment for a sinus infection depends on the cause and whether your condition is chronic or acute. ? If caused by a virus, your symptoms should go away on their own within 10 days. You may be given medicines to relieve symptoms. They include: ? Medicines that shrink swollen nasal passages (decongestants). ? A spray that eases inflammation of the nostrils (topical intranasal corticosteroids). ? Rinses that help get rid of thick mucus in your nose (nasal saline washes). ? Medicines that treat allergies (antihistamines). ? Hvaa-otw-raomxmf pain relievers. ? If caused by bacteria, your health care provider may recommend waiting to see if your symptoms improve. Most bacterial infections will get better without antibiotic medicine. You may be given antibiotics if you have: ? A severe infection. ? A weak immune system. ? If caused by narrow nasal passages or nasal polyps, surgery may be needed. Follow these instructions at home: Medicines ? Take, use, or apply qaal-uzd-fkiyhcw and prescription medicines only as told by your health care provider. These may include nasal sprays. ? If you were prescribed an antibiotic medicine, take it as told by your health care provider. Do not stop taking the antibiotic even if you start to feel better. Hydrate and humidify ? Drink enough fluid to keep your urine pale yellow. Staying hydrated will help to thin your mucus. ? Use a cool mist humidifier to keep the humidity level in your home above 50%. ? Inhale steam for 10?15 minutes, 3?4 times a day, or as told by your health care provider. You can do this in the bathroom while a hot shower is running. ? Limit your exposure to cool or dry air. Rest ? Rest as much as possible. ? Sleep with your head raised (elevated). ? Make sure you get enough sleep each night. General instructions ? Apply a warm, moist washcloth to your face 3?4 times a day or as told by your health care provider. This will help with discomfort. ? Use nasal saline washes as often as told by your health care provider. ? Wash your hands often with soap and water to reduce your exposure to germs. If soap and water are not available, use hand pie maker machine. ? Do not smoke. Avoid being around people who are smoking (secondhand smoke). ? Keep all follow-up visits. This is important. Contact a health care provider if: ? You have a fever. (more content not included)... [facility] Clinical Note 03-21-2023 Note Date & Type Note Facility 03-21-2023 Note Education Materials Gastroenterology Nausea and Vomiting, Adult Nausea is feeling that you have an upset stomach and that you are about to vomit. Vomiting is when food in your stomach forcefully comes out of your mouth. Vomiting can make you feel weak. If you vomit, or if you are not able to drink enough fluids, you may not have enough water in your body (get dehydrated). If you do not have enough water in your body, you may: ? Feel tired. ? Feel thirsty. ? Have a dry mouth. ? Have cracked lips. ? Pee (urinate) less often. Older adults and people with other diseases or a weak body defense system (immune system) are at higher risk for not having enough water in the body. If you feel like you may vomit or you vomit, it is important to follow instructions from your doctor about how to take care of yourself. Follow these instructions at home: Watch your symptoms for any changes. Tell your doctor about them. Eating and drinking ? Take an ORS (oral rehydration solution). This is a drink that is sold at pharmacies and stores. ? Drink clear fluids in small amounts as you are able, such as: ? Water. ? Ice chips. ? Fruit juice that has water added (diluted fruit juice). ? Low-calorie sports drinks. ? Eat bland, quow-ru-dwfwfv foods in small amounts as you are able, such as: ? Bananas. ? Applesauce. ? Rice. ? Low-fat (lean) meats. ? Herald. ? Crackers. ? Avoid drinking fluids that have a lot of sugar or caffeine in them. This includes energy drinks, sports drinks, and soda. ? Avoid alcohol. ? Avoid spicy or fatty foods. General instructions ? Take twug-crz-vnipdrw and prescription medicines only as told by your doctor. ? Drink enough fluid to keep your pee (urine) pale yellow. ? Wash your hands often with soap and water for at least 20 seconds. If you cannot use soap and water, use hand pie maker machine. ? Make sure that everyone in your home washes their hands well and often. ? Rest at home until you feel better. ? Watch your condition for any changes. ? Take slow and deep breaths when you feel like you may vomit. ? Keep all follow-up visits. Contact a doctor if: ? Your symptoms get worse. ? You have new symptoms. ? You have a fever. ? You cannot drink fluids without vomiting. ? You feel like you may vomit for more than 2 days. ? You feel light-headed or dizzy. ? You have a headache. ? You have muscle cramps. ? You have a rash. ? You have pain while peeing. Get help right away if: ? You have pain in your chest, neck, arm, or jaw. ? You feel very weak or you faint. ? You vomit again and again. ? You have vomit that is bright red or looks like black coffee grounds. ? You have bloody or black poop (stools) or poop that looks like tar. ? You have a very bad headache, a stiff neck, or both. ? You have very bad pain, cramping, or bloating in your belly (abdomen). ? You have trouble breathing. ? You are breathing very quickly. ? Your heart is beating very quickly. ? Your skin feels cold and clammy. ? You feel confused. ? You have signs of losing too much water in your body, such as: ? Dark pee, very little pee, or no pee. ? Cracked lips. ? Dry mouth. ? Sunken eyes. ? Sleepiness. ? Weakness. These symptoms may be an emergency. Get help right away. Call 911. ? Do not wait to see if the symptoms will go away. ? Do not drive yourself to the hospital. Summary ? Nausea is feeling that you have an upset stomach and that you are about to vomit. Vomiting is when food in your stomach comes out of your mouth. ? Follow instructions from your doctor about eating and drinking. ? Take teph-ldk-nlddmhh and prescription medicines only as told by your doctor. ? Contact your doctor if your symptoms get worse or you have new symptoms. ? Keep all follow-up visits. This information is not intended to replace advice given to you by your health care provider. Make sure you discuss any questions you have with your health care provider. Document Revised: 01/03/2022 Document Reviewed: 01/03/2022 Else[employer] Patient Education ? 2022 [employer]. Obstetrics and Gynecology Warning Signs During During , your body goes through many changes. Some changes may be uncomfortable, but most do not represent a serious problem. However, it is important to learn when certain signs and symptoms may indicate a problem. Talk with your health care provider about your current health and any medical conditions you have. Make sure you know the symptoms to watch for and report. How does this affect me? Warning signs during Let your health care provider know if you have any of the following warning signs: ? Dizziness or feeling faint. ? Nausea, vomiting, or diarrhea that lasts 24 hours or longer. ? Spotting or bleeding from your vagina. ? Abdominal cramping or pain in your pelvis or lower back. ? Shortne (more content not included)... [facility] Summary Purpose Family History No Family History Records FoundNo Family History Records FoundNo Family History Records Found Advance Directives No Advanced Directives Records FoundNo Advanced Directives Records FoundNo Advanced Directives Records Found Additional Source Comments INFORMATION SOURCE (unrecogn ized section and content) DATE CREATED AUTHOR 04/19/2020 [facility] DATE CREATED AUTHOR AUTHOR'S ORGANIZ ATION 05/30/2023 [facility] EPIC DATE CREATED AUTHOR AUTHOR'S ORGANIZ ATION 07/01/2023 [facility] [place] FOR RECORDS PERTAINING TO PATIENTS WHO ARE OR HAVE BEEN ENROLLED IN A CHEMICAL DEPENDENCY/SUBSTANCEABUSE PROGRAM, SOME INFORMATION MAY BE OMITTED. This clinical summary was aggregated from multiple sources. Caution should be exercised in using it in the provision of clinical care. This summary normalizes information from multiple sources, and as a consequence, information in this document may materially change the coding, format and clinical context of patient data. In addition, data may be omitted in some cases. CLINICAL DECISIONS SHOULD BE BASED ON THE PRIMARY CLINICAL RECORDS. [employer] provides no warranty or guarantee of the accuracy or completeness of information in this document.
== END 2023-07-02 10:32 | disposition home or self-care (01) ==
LOC: US 10:31
PROVIDERS: Visit Provider Obstetrics & Gynecology
DX: Z34.92 Encounter for supervision of normal pregnancy, unspecified, second trimester (principal); Z3A.21 21 weeks gestation of pregnancy
CPT/HCPCS: 76805; 76817

== ENCOUNTER 2023-07-23 10:47 | Outpatient (OUT) | payer MEDICAID, SELFPAY ==
--- OUTSIDE RECORDS SUMMARY | 2023-07-23 10:55 | XMS_ITS | CCD ---
Author Name Unknown Address [address] [facility] [address] [place] [address] Organization [facility] Team Providers Care Sergeant Of Corrections Name Role Phone SHAHNAZ CORONA Admitting Unavailable [...] WHARTON Consulting Unavailable LEFTY GALE Consulting Unavailable CHLOE, SHAHNAZ Consulting Unavailable YAEL, ALEXANDER Admitting Unavailable YAEL, ALEXANDER Attending Unavailable YAEL, ALEXANDER Consulting Unavailable SHAHNAZ CORONA Consulting Unavailable DO, TAMARA Brannon Consulting Unavailable SHAHNAZ CORONA Procedure Practitioner Unavailab le DO, TAMARA L Procedure Practitioner Unavailab le CHLOE, SHAHNAZ Admitting Unavailable CHLOE, SHAHNAZ Attending Unavailable CHLOE, SHAHNAZ Admitting Unavailable CHLOE, SHAHNAZ Attending Unavailable CHLOE, SHAHNAZ Consulting Unavailable DELONTE, JOSE Attending Unavailable YAEL, ALEXANDER Attending Unavailable Blunt, Caden M Primary Care Unavailable Kashk, Baldo I Attending Unavailable Kashk, Baldo I Admitting Unavailable Blunt, Caden M Primary Care Unavailable Frank, Deven Jacob Attending Unavailab Deven Loredo Admitting Unavailab Armando Browning Attending Unavailable Armando Nieto Admitting Unavailable Blunt, Caden M Primary Care Unavailable Allergies Allergy Classification Reported Allergen(s) Allergy Type Date of Onset Reaction(s) Facility (1 source) No Known Medication Allergies; Translations: [No Known Medication Allergies] Propensity to adverse reactions to drug (disorder) [facility] Repository Problems Active Problems Problem Classification [...] source) Other mental disorders complicating childbirth; Translations: [OT MENTAL D/O COMP CHILDBIRTH] Onset: 04-19-2020 Episodic Other complications of (4 sources) Other specified related conditions, third trimester; Translations: [OTH SPEC PREG RELATED COND 3RD TRI] Onset: [...] Test Name Value Interpretation Reference Range Facility Consent Formson 07-10-2023 Consent Forms [id number] TGTIFF Normal [facility] ED Clinical Summaryon 2022 ED Clinical Summary [facility] - Emergency Department [address] [place] [address] ED Clinical Summary PERSON INFORMATION Name: BETTY RAMIREZ Age: 27 Years Sex: FEMALE : 1995 MRN: Acct#: Visit Reason: Fever; Cough; COUGH, FEVER Arrival: 07/09/2023 12:39:18 Discharge: 07/09/2023 16:57:00 LOS: 000 04:18 Check In: 07/09/2023 12:39:18 Checkout:07/09/2023 16:57:00 Address: [address] [place] [address] PCP: Caden Lauren MD PROVIDER INFORMATION Provider Role Assigned Unassigned Patty Wang RN ED Nurse 07/09/2023 14:55:21 Baldo Fair MD ED Provider 07/09/2023 15:02:57 VITALS INFORMATION Vital Sign Triage Latest Temperature Tympanic Temperature Temporal Artery 36.9 DegC Pulse Rate 95 bpm 95 bpm O2 Sat 99 % 99 % Respiratory Rate 18 br/min 18 br/min Blood Pressure /78 mmHg /78 mmHg MEDICAL INFORMATION Medications Given: Allergy Information: No Known Medication Allergies PHYSICIAN DOCUMENTATION DISCHARGE INFORMATION: Discharge Disposition: Home Discharge Location: Home PATIENT EDUCATION INFORMATION Instructions: Upper Respiratory Infection, Adult Follow-Up: With: Address: When: Caden Urbano [facility], [address] [facility] [address] [place], [place] [address] Business (1) Within 3 to 5 days Comments: Call for follow up appointment DIAGNOSIS: Upper respiratory infection Patient Understands: Yes - Patient/family/caregiv er verbalizes understanding of instructions given Comment: [facility] ED Note-Nursingon 07-09-2023 ED Note-Nursing Patient taken to [place] [address] at this time, delayed rooming due to high patient census. Patient is aware and denies needs or concerns. -05 [facility] ED Note-Nursing Pt. C/O of having fl u B two weeks ago then getting better. PT. states about 3 days ago she started to have a cough with yellow mucus, fever and pressure behind her eyes. Pt. is A&O x4. PT. has a steady gait. [facility] ED Patient Summaryon 023 ED Patient Summary [facility] - Emergency Department [address] [id number] PATIENT DISCHARGE INSTRUCTIONS Patient Information Name: BETTY RAMIREZ Age: 27 Years Date of : 1995 Reason For Visit: Fever; Cough; COUGH, FEVER Arrival Time: 07/09/2023 12:39:18 Primary Care Physician: Caden Lauren MD Attending Physician: Baldo Fair MD Comment: Visit Diagnosis: Diagnoses This Visit Cough ([id number]) Fever ([id number]) Upper respiratory infection (J06.9) The Pharmacy at [facility] is open Thursday through Thursday from [...] alcohol and/or drug addiction problems; contact the [facility] 02/02 Crisis Hotline -Text 2JIVQ om 758162. If you received any narcotics, sedation, or [...] any legal documents With: Address: When: Caden Cavazos [facility], [id number] [place] [address] [place], [place] [address] Business (1) Within 3 to 5 days Comments: Call for follow up appointment Medication Information: The exam and treatment you received today in the [facility] Emergency Department were for an urgent problem and are not intended as complete care. It is important for you to follow up with a doctor, nurse practitioner, or physician?s timber management assistant for ongoing care. If your symptoms [...] so we can reach you if necessary. [facility] Emergency Department has provided you with a complete list of medications post discharge. Please inform your bus cleaner/provider of your visit and for further instruction on these medications. Any specific questions regarding your chronic medications and dosages should be discussed with your primary care physician(s) and/or pharmacist. Additional medications on your home medication list not specifically addressed. Please contact the ordering physician if you have questions about these medications. amoxicillin (amoxicillin 875 mg oral tablet) 1 tab(s) Oral (given by mouth) 2 times a day (scheduled) for 10 Days. ethinyl estradiol-norethindron e (Blisovi FE 08/01 oral tablet) multivitamin, ( Multivitamins) 1 Oral (given by mouth) every day. Visit Information Allergies: Substance Reaction Symptoms Type Comments No Known Medication Allergies Drug Vital Signs: Vitals and Measurements this Visit (last charted value for your 07/09/2023 visit) Vital Signs This Visit Temperature Temporal Artery: 36.9 DegC Peripheral Pulse Rate: 95 bpm Respiratory Rate: 18 br/min Systolic Blood Pressure: 122 mmHg Diastolic Blood Pressure: 78 mmHg SpO2: 99 % Oxygen Therapy: Room air Measurements This Visit Height/Length Estimated: 149.86 cm Weight Estimated: 64 kg Body Mass Index Estimated: 28.5 kg/m2 Problems List: Problem Onset Comments Patient Education Upper Respiratory Infection, Adult An upper respiratory infection (URI) is a common viral infection of the nose, throat, and upper air passages that lead to the lungs. The most common type of URI is the common cold. URIs usually get better on their own, without medical treatment. What are the causes? A URI is caused by a virus. You may catch a virus by: ? Breathing in droplets from an infected person's cough or sneeze. ? Touching something that has been exposed to the virus (is contaminated) and then touching your mouth, nose, or eyes. What increases the risk? You are mor (more content not included)... [facility] XR Chest 1 View Frontalon XR Chest 1 View Frontal CLINICAL HISTORY: Cough. Wheezing. TECHNIQUE: One view of the chest. COMPARISON: [None.] RESULT: No focal consolidation. No pleural effusion. No pneumothorax. Normal cardiomediastinal silhouette. No acute osseous findings. IMPRESSION: No acute radiographic abnormality. Final Signed (Electronic Signature): Wesley Pillai MD 07/09/23 4:32 pm Technologist: Salud CISNEROS [facility] Coding Summaryon 06-30-2023 Coding Summary HTMLBase 64 QnlczaijTIx9mFf+PGhlYW Q+DV4NTBAqB03ouGKulD7p E4PAKYuRHbqsMHHLYTrUEy KeviReFI2fkQFxYPJv IC8+RN1aWQXzFfcxeJJnp5 A0rXE9Z27vst5oBPfzaFH5 PZTpUqLzmolds7zycXj9PG cuNmluOyBt URCrkX12FOT7uA33Ee96yI CqnPNwk3lziWv4MoEdCRDh VXC7oQhxRIrsa4IwYUWpB0 2xiDOov4P0 NAEusVborIQyRlRqbLY1nP 6dHXsujguuw4bvnbvpQqx7 fv82hYJbt5Z7vLD9R1Fwuq K5HHOffYHo QonnuQFAbZ1ktzgpe0dxkn vnPiDjIUQbPHc3WCp6HZXp fCwbPsPhZY87IAX6JXTxqo QjM7SkSFVk eMxmLeE7z1K1Wz8RB1YLXz wwO1OUUXUXZAdygHR+PC90 nl69F2BcSyhoNny0EPCwFL G3zDO5rJ9o YSInTUcpp5M9sPA1N1Ofhj Knhc2yp7ynSIUwBMltO17b gTWif2N2EBQrjLN4ENFbtL ucJlTmtL68 Oyc+DBAeuMubo5GoYhtis9 hty6nnqOa2LphsPDBsjjPa hHseECS0b6InDb6aEMFtjD K9qRX1xK5b NaZiExF4CAjtO780KmCluB UaEyyrX59zN6IqqYS+PHRy Mtg5JRXndPniHG6vK2AnWR RpbmctbGVm kPrsIS0cTBHqbdliYFRwuX 5tNDPdR3s1LsLbIdG7GXam J5KwSKKjhtfqCi79tY3yHg WoXeJ7FPdb U2MoygZ8NDEvxMLjZNotZT Y5M83ch1O5XHRvQOCyAWQ6 hOQ1wY1zpCtiqfonnIIoxK sgdmVydGlj LVpbVPcyH246IEKqmUmpCd NvZGluZyBEYXRlOiAgMTIv MTkvMjAyMzwvdGQ+PHRkIH T9lSubYBOi zZLjNOxtIj7spAhhbTyrTR 6gNJEfwhbgJOBdoX9dDAEu dXMagXqzPM9yZSHqrzymi6 79DvVaJCG1 ZSIiwCQxY5KfqZ4lNyZsWW OzRSCiN6GsyEFjNGzjI511 PSzcQsH7BNMgsaHsY7UtBD FsaWduOiB0 y3L1Xb3Pg0RchvquE4PzwN FhXfEjFztaOPf8V1OaMacg dHI+JG48KAXcWH45OIb0UC N9sXvmKVts JUNjO3MduJ2hWfWyLWErSQ RkOyc+PHRhYmxlIHdpZHRo LMfsSCWnIgUvpQrbGZ4gZl 9yZGVyLWNv iOtnyGItEpJpa6lgMVHaRE taJF5rwFpsL0XuiGZ9ZJSi b6j2Er44H39aS6IzkPN+PG XvjMU8oWA1 gZ3pQcZyLaP3CQppQ827Xd FxhCEsNdqwn4xtp1amfRo6 VrT1UZXjiyZlyCwpTSA3a9 FkCa41W45s IHdpZHRoPSIxNSUiIHZhbG pzyr1rbW7nXg5+PGNvbCB3 lTC8mB5iCtZvKoN2GFkcL4 49InRvcCIv Qjrrt8gjo3tvrUa8YhWyYV NcoaKahQwjGLR9f7ByZj93 V7JpiGvuc0JxEed9pr16lQ Hal6W1pDJ8 X0VfRGVmnjqkpIDojUccRF 9yQEMlzqqwXFMzkF7zBCYv Z2t6ToWpGdR9BFxjQ6Mxog F0DYHuiHAz TBZjyWSIrL3dhvlyd3omay diGsDfZKGlZHd8JIs6RUFp oCduDaUwQFU4XjX2GPF1nY SuzP9lkLzg lbntkB4qFne+EOO9dSXfbS XZAJ2zZoavjVW+PHRkIHN0 aWkfBSamDSIrfG4oHPHeU1 r3SkYhUgM0 FNtaE3CynnL5PSJacUIlFK HobUTMqZ4wnkfns8skpwzx UzZxXPTaXCt0EJz7GGRjmS duOiBsZWZ0 QhP1QGW5mDTptX5wqEcjcj vpgL3rXgz+QmlydGggRGF0 HKt9Z4LqAiq2ERPktXjeKI 0ncGFkZGlu Bq4kzWrayMhnTW1oUVXvfm ath355WaPon1ioYEUsiRZu HBdnXXG4Q15za6B4ATPzFC XsEEJ4oLX5 fZ0phKnlrrpdcEOaaVvuei UdaWvoCEtrUQppE092PMZx dTscAwPvOGh5K4CiJam8IF StpXksPB5e yEJfGXwtPu6fiPlpvEvmLP 0gHAZpxjkpp889XbLjm8iy XRMknYOwZSbwXUX3P42dh7 D3MQAhITQe GBO6wAZ9wU9lbZsxnglsiU VmdDsgdmVydGljYWwtYWxp C148ZKUneEygAgLhdGa1K2 AgZwa5IMOf oGolLP4oqNEaKKwmBh6vbS snkDqnAO4tRUNqjgxgp174 KbBlu1kzUTMwkCJkRWxhSF D5X71qc4J1 IBMdLDZwWWR2tAB6yM5yqY lnbjogbGVmdDsgdmVydGlj BIjcDIqfT940XRDnaPogGm BhdGllbnQg ALygMWi1V1RgEbbjyTJ+PC 55HGJlMC86uKSotGWhg3vh tPh2WnYiSOGzVBK7jJudSD jyk3TsYLNs E98yrTWyv2M1RITbtAjukT JiLsAbvYU9dC4tBSfsanzs q7woduwdEdyno5wrkl97pO 62E46vTBef ZHRoPSIzMCUiIHZhbGlnbj 9joS8lQn2+CODfvGS5vCI2 jL6nOAXsXuZ5LZufS681Ie RvcCIvPjxj j1jza9gckPy8DxM4XBVhvc MyrXrdAVZ0d8GlFp32R43b IHdpZHRoPSIyMCUiIHZhbG kxwk2udY7u Ii8+ZNLkwYJ1hLR9gP2lPa VrVpM9CVotU110GtJybGKl ZapzH05fQ9VlsBI+PHRyPj y2PGNmpScm VC5qpHAhHEbrUk9lVFG2Yy FmZdAyMQftC1ScBMQuzhph alqdnRL7MPRqSJHwcE55Ug 9udDogMTBw kDSBmX5cqdjvj4ogrxsqIg SmZWHuYYd4VLv4ZODdcAcx MzCxTXT1BqL2TJP0dRVydV 1hbGlnbjog sI0sB7IdHXYobwzyFn17vQ 7kWjEoBgO6XExbWga+V0FH OyDSOGGJRCFTDM5SRPDGXv wvdGQ+PHRk HLJ6dAgyBJpbBBMiuK5nFM XtZ1k8NjDiSkN8VLyvC2Ay HQPwhxonUn81cK7lErBhPi V0FVezS9Zy zkC9GDBdkWAhIJqgKFJ6L6 8jc9U3FUJiKIWoSIX0aDY3 mO2fqPfzztdloCXnfNwdvy VydGljYWwt LYyfZ542VINxeYpaKaSyTh D8RuL2NRi2G2AhNbl8VRCp wMfcKZ6sjFNoQHstLl8kbI mrdOscSL2k KCRebxgvTIDajM0kPZRyjP PoaVsgNS8xKIBqlkhvi015 FzDfKEN7BDMvvMSrZ5ItcS 9yOiAjMDAw ZIAcS4HyjGApFPejL784IV meLlI0VPKicrWhZ6YuVYVn rNilWeY5w9O7Ia9vNJXRED FyczwvdGQ+ OAXyJYI8eAdoTPjkWOFbsO 7kXZQxI8k3NjIjRsU2MBgz U7ZqRTXvghmzAj72eC9dOo MdIqL0IQoq E6FjreZ1GNDzwFTlYBgwAP A9Y46tr5P5NALsVZGrHDT5 dVV9jY9rmCdrxtfehXKagF sgdmVydGlj IZjfYSyxT531GFGdoFrjTs ZFTUFMRTwvdGQ+PHRkIHN0 iUwaMOutIKXpnQ1oNEDeL2 u7DjQlNfE8 KKznG6VvGPWhtlvhUl41lM 2sOmJdPfG1EIwoN8FutrM3 WKHoaIBdLUkbCWQ1U29fd5 G8IUZyZRQn HQX0qQJ5jI1zcXrjbmwovD VmdDsgdmVydGljYWwtYWxp V607KZRblYemFfMbSNFaWA 5jeTwvdGQ+ AX87ph85G3KuRmajCwi2CN CoPPB6pSQ2nJ6nHDAlPOxu b0D4fJK6N8UhshElpr4mo5 xsYXBzZTog J78hqIWpq4Q3OEJbsXQ7PJ DzmWdbSoFcqU58Szs+PGNv qKhtc0UvIjoud3eoq3wdaT q9QxOiQIEk kdKwhTyfXPH6k2GhHh80J8 9sIHdpZHRoPSIzMCUiIHZh iVmubq2nqJ0qZz6+PGNvbC N9nFJ4aV5o XhEvRhW3WMwbS460IbCgdX SvFadhl9ocb8tkeDf4LhSe PLHvlvZkhMenDMK6y6RfPv 33K6KvsJeu t0HpCrm8ox65gKHow2F0nD W6P6QrEWNsvhzjmRWdzIye QR7yEBBciackHVNlrF2jXR SeL8o0EwFv MdN3EQvrK7WwemW9TJMejF SgJCQudQBXuT0cxebou3ea gqsgToVdRVWqMOr9HTn1HY FsaWduOiBs ZES1VqM5NJU5yUVxnX9gjH itaazmvC8bXts+CMg4z1ex yMXdTV5umRF1RQ29WS50iA Ntq6X8mET0 G3FkQRTeqrnroxkcvWF9GW HoOMIzvA03Nj0dtMynUh8o IAQcFYQ3ROHydTPmQ9JidA 9yOiAjMDAw SGWjV3YazSRwLGpoW925EK qjLsH1IKIsrkKdI4WoDLVs wIkaOwL6a8X4No0ROD45LP 17DM31oCYf q3O7dBO0V7XdDATwoqrtah htuVP4PLNiOLJzfP70Je5b sCyaQj6yDTUpTAD3GZNscV DuR9OrfZ4x MwIqQGPrLZLvO0ZvpBVtDP kxG313PIduNeP8ITSmuyOn A6EeKUQxmRnlSoG9p7O8Js 2LHg42QN61 YK97xWGcx5O1yFM6J0YxKU SfjsgbybdpaUB9XPDsCSMq zZ03Wj7fgUpkVt9rQKOhAX K2CIKpbIZq B0IctK9gXmMiOEDbWJXlQ7 ThiTBbDHsgJ925VUykBbL0 WDKgvaNrS5HaLDRorUbmRp H8o0Q1Kz8U IZnsgdm6A5XyPqnttYX+PC 61ZJMlJN27mXGcnZDvr9ob uUt0XnVgTFGaADU4mHuvWV ilq6ZlMHSb Y29 (more content not included)... [facility] C Throaton 06-25-2023 C Throat Ordered by Discern. Normal throat sierra isolated No pathogens isolated [facility] Comment on above: Performed By: #### 7 [id number], [id number] ####[facility] (DEFAULT)[address] [place] [address] .QC SARS-CoV-2 (COVID-19)/Fl u/RSV (GeneXpert)on 06-23-2023 Internal Control Pass [facility] Comment on above: Order Comment: Order ed by Vira.[[email or web address]_QC] Performed By: #### 7 [id number] ####[facility] (DEFAULT)[address] [place] [address] COVID/Flu/RSV (GeneXpert)on 06-23-2023 Flu A (GXpert COVFLURSV) Negative Normal [facility] Comment on above: Performed By: #### 7 [id number], [id number] ####[facility] (DEFAULT)[address] [place] [address] Flu B (GXpert COVFLURSV) Negative Normal [facility] Comment on above: Performed By: #### 7 [id number], [id number] ####[facility] (DEFAULT)[address] [place] [address] RSV (GXpert COVFLURSV) Negative Normal [facility] Comment on above: Performed By: #### 7 [id number], [id number], [id number] ####[facility] (DEFAULT)[address] [place] [address]250 SARS-CoV-2 (COVID-19) RNA MAYCO+probe Ql (Unsp spec) Negative Normal Negative [facility] Comment on above: Result Comment: Perf ormed by PCR methodology. Performed By: #### 7 [id number], [id number] ####[facility] (DEFAULT)[address] [place] [address] ED Clinical Summaryon 2022 ED Clinical Summary [facility] - Emergency Department [address] [place] [address] ED Clinical Summary PERSON INFORMATION Name: BETTY RAMIREZ Age: 27 Years Sex: FEMALE : 1995 MRN: Acct#: Visit Reason: Sinus Pain/Congestion; Cough; SORE THROAT, CONGESTION, VOMITING Arrival: 06/23/2023 09:52:37 Discharge: 06/23/2023 11:16:00 LOS: 000 01:24 Check In: 06/23/2023 09:52:37 Checkout:06/23/2023 11:16:00 Address: [address] [place] [address] PCP: Caden Lauren MD PROVIDER INFORMATION Provider Role Assigned Unassigned Deven Marie DO ED Provider 06/23/2023 09:55:34 Nestor Wilson ENVIRONMENTAL LEAD Nurse 06/23/2023 10:25:25 VITALS INFORMATION Vital Sign [...] Medical history: Resolved Superficial laceration of scalp ([id number]): Resolved. Acute laryngopharyngitis (56105501): Resolved.. Surgical history: No active procedure history [...] Reevaluation 27-year (more content not included)... Normal [facility] ED Note - Physicianon 2022 ED Note - Physician Patient: BETTY RAMIREZ Age: 27 years Sex: [...] Medical history: Resolved Superficial laceration of scalp (328096571): Resolved. Acute laryngopharyngitis (27256798): Resolved.. Surgical history: No active procedure history [...] amoxicillin. Impression and Plan Diagnosis Acute sinusitis (HNX10-PR J01.90, Discharge, Medical) Plan Condition: Improved, Stable. [...] understanding of instructio (more content not included)... [facility] ED Note-Nursingon 06-23-2023 ED Note-Nursing private vehicle arrival with c/o cough congestion since last with multiple sick contacts at home. lcta. maintains ra saturation. rr even and unlabored. unw187ewz. no distress. oriented to call light. s/o and childx2 at bedside. pending swabs [facility] ED Patient Summaryon 023 ED Patient Summary [facility] - Emergency Department [address] [place] [address] PATIENT DISCHARGE INSTRUCTIONS Patient Information Name: BETTY RAMIREZ Age: 27 Years Date of : 1995 Reason For Visit: Sinus Pain/Congestion; Cough; SORE THROAT, CONGESTION, VOMITING Arrival Time: 06/23/2023 09:52:37 Primary Care Physician: Caden Lauren MD Attending Physician: Deven Marie DO Comment: Visit Diagnosis: Diagnoses This Visit Acute sinusitis (J01.90) Cough ([id number]) Sinus Pain/Congestion ([id number]) The Pharmacy at [facility] is open Thursday through Thursday from [...] alcohol and/or drug addiction problems; contact the [facility] 02/02 Crisis Hotline -Jcdo 6BWQK re [phone]. If you received any narcotics, sedation, or [...] legal documents With: Address: When: Caden Urbano [facility], [address] [place], [place] [id number] Business (1) Within 3 to 5 days Comments: Call for follow up appointment Return if symptoms worsen Follow-up in 3 to 5 days unless symptoms are resolving Medication Information: The exam and treatment you received today in the [facility] Emergency Department were for an urgent problem and are not intended as complete care. It is important for you to follow up with a doctor, nurse practitioner, or physician?s timber management assistant for ongoing care. If your symptoms [...] so we can reach you if necessary. [facility] Emergency Department has provided you with a complete list of medications post discharge. Please inform your bus cleaner/provider of your visit and for further instruction on these medications. Any specific questions regarding your chronic medications and dosages should be discussed with your primary care physician(s) and/or pharmacist. New Medications [id number], [address], [place] [id number], [phone] amoxicillin (amoxicillin 875 mg oral tablet) 1 tab(s) Oral (given by mouth) 2 times a day for 10 Days. Refills: 0. Additional medications on your home medication list not specifically addressed. Please contact the ordering physician if you have questions about these medications. ethinyl estradiol-norethindron e (Blisovi FE 1/20 oral tablet) multivitamin, ( Multivitamins) 1 Oral [...] sinuses. W (more content not included)... Normal [facility] Strep Aon 06-23-2023 Strep procedure control Pass Normal [facility] Comment on above: Performed By: #### 7 [id number], [id number] ####[facility] (DEFAULT)[address] [place] [address] Streptococcus A Negative Normal Negative [facility] Comment on above: Performed By: #### 7 [id number] ####[facility] (DEFAULT)[address] [place] [address] Coding Summaryon 04-03-2023 Coding Summary HTMLBase 64 HqgbmvjbSHx4xKc+PGhlYW Q+ML1BQZUvP21fpBByhL2r P4VCIRzIFkacCITXEFnPCk UoffPrJP9zuPXjUYJp IC8+JB2yJBHdSdhboHAci3 U0eDO6Z93xuf8jUEaesJI4 OUWxTmUkwuxmx1ovcQo6CL cuNmluOyBt WRTujW06KFR1yH29Au75iN QegEEyb7mffAy3PqYbWIPe FRL7bQasWHabo3DwNXBiS1 4sxWLxj5K0 IRXbfUlhoMXqItUcwLW0sI 9wVKgzwjzvv3wqjoqvYsd1 vx82yKNxo9U0sYE6W7Rxpv P2QIHxiIIl EafmeIHYrI1yssuaw6ktea zrWsWfOSJbKWx8USc1LGJo wJjiCkJhDN43SOP2GCYpel RcL2LaLSPm wMrbCyT9c1R9Ee5UA0PEQz jpO5RIMVCOWXdewEO+PC90 am18N1DuHqbsPzh5KFEnCA D9kTC6pW1m VJQlFPyuf3K5hZQ9F3Knjx Fndh5fb0bwRVMhSFhmX36g aCEpu6R3GQNbjPB2TKVhhD qvHaHivX08 Oyc+NFBlvMegp0MuZzcod1 kit6udsNr6SprbFFExoxHi yQdhESE1u7VhOf5fIAGboT J6hQQ1nO5w TsHqKhN0CWkpA195BaRyeA JyXzlfL29cA4FtnUM+PHRy Kvo8HVVuhJxlSI2oJ8AxOH RpbmctbGVm oTagSN1fRIPqywrdKCQrvJ 7fGDAlF2z3XbZzUzF3SMji V2DaEDRfpdclWk77nL2uQj ZeWqB4UBgu S6KuenX5JTQqkWVeYQpqNW W9H39zl2W8DIKhGKNmSCS8 zSU5jV6wfWudghfojGVyjG sgdmVydGlj INqcRJtqI809DXFmzDzkJf NvZGluZyBEYXRlOiAgMDkv MjIvMjAyMzwvdGQ+PHRkIH Z9hJonAPNx wDPhGHtiYo7dgWanpLqmYL 1dKWJwobpkGUTlpY9tVPZv dJDbiUegQJ2pYPJdasror6 80GwUmFQQ4 SPHbyQRhQ0OaxZ1eUhWnZY RpGQReG8NzpZCcRBowW356 OStuRfH2RJTaooKwT3HoIS FsaWduOiB0 y0K8Uv7Rn6HvmlfeU2DfmK RuSsRpVpknMSh2D5UpLvpq dHI+IY29LZDlJR77BCa6OB V6fVnpBAfo HGKoK0MpaE8kEmLjLZSwLL RkOyc+PHRhYmxlIHdpZHRo FOzoPYLmMkYflAzoWG5fWy 9yZGVyLWNv mInjzNUdYrRzz6zgMAHtWZ diYD9grTbzC0AytXU4PBDl l8t1Xo78J80hB8KwuMS+PG GejDM6hKY5 mB9nUhNrAmK3GGiuV087Cu UqvYRwCnzkp6hkg4xozVj8 LxC0XEIygyGmvVrwOZA7o8 FrKi31Z96c IHdpZHRoPSIxNSUiIHZhbG nkfh7jmG3vSd3+PGNvbCB3 oGX7rK0cHrZuWmE4IRsoY4 49InRvcCIv Dzctd9wun2pkiMk1UcLhUI DfbmExvPvlBYC7b9ZrXn88 G9YjvEpjr3HrOgn6lb22cZ Rlx8S0pIA4 J0ApZXCkyflavOIagYfoYN 8dNLOtvrzuLIBiiP0hKBJw D9x8KiNfSdB6WRwsK4Nxtq A2NORciXAy RPNglDRUpK3qrbnut1nwad fwHtJvXILeQYn2BPo8KYNb aMslQrEkJXF6RrE2AKK6gT SkeC5zfSpi grlboU8tErv+ZQF7sPRluH TVNM5ySmrlcGO+PHRkIHN0 xMojWOcyHTMcgS6cJVKrA0 o6PaQfXfJ2 MLuaQ1ZdhyC6QHLivMTsXS BuiEXVyD5trkgfb2lybogc HzEoOKDeHBn0HSs2UDIakI duOiBsZWZ0 TaU5PRI0mOKmzI8hlEdgrn ojhB5kSgf+QmlydGggRGF0 KHf9I0GuOyr2VTXqoNwyNX 0ncGFkZGlu Bt1ydDdzgDxnGK0kPWRsui hbu136QqEhe3weXTLqwPQt EAeqMEY0K61lq0Q3GHWsYC ViTQQ4ePT7 rJ8kvLedqyedbVLbdKebcd SqxNupSEbeXLzwI222VQYh fZveOaRiZMe5L4GbIbx5YF DspYxjIP7c kVPiBWncTh1lqBmzcDwvEM 2nVVWdsnhwx086YvRzw2nv RJZraKIkLDbwKZR2D92vw4 K7KQMqFEPs HDB4vYC7hG3loTauacsxmD VmdDsgdmVydGljYWwtYWxp Q085XNDxtRkzZfIinYu2L2 LoYpa3MAVu hAmvYM0pzMFeFIbdIb8ewE xpaLszEP6pOUKmukzal257 UvSqg5hjICCtcHEmJNclQQ Q6P04kw0K8 NTKwRQKsROD4hHC4qE1pbI lnbjogbGVmdDsgdmVydGlj XLcnZPbqG558RSHgrFmoQm BhdGllbnQg TUjaWUx1F7AlCxieaDB+PC 02IGJiQU76zBDcvVQzo5eh sUt2ClYaWYBfIZR4uNmmFO mri2FeYRTa P38ogRJkz9D9HKRmfDbpfZ FeQjEdzKK6jP7vBLdtoxka c0hlqjacDhssf1ecxt71yS 28D33qRGft ZHRoPSIzMCUiIHZhbGlnbj 7njS8wGm1+SUYcnNC5aKA5 dN9mZKHmHjC6MIwfY788Kh RvcCIvPjxj r7mqd4lhdXk4GmV1ZIIzcr DkdRmeXRY9b5DeWe72A20l IHdpZHRoPSIyMCUiIHZhbG dwhz1ajE4q Ii8+URDcoMJ5hFW9tR8vSq YkLuU5XVjhA180QxZqvBTl RqrnM71fK6SaoWB+PHRyPj z3BLAocVhj AD6bfKDhKTvzZw3qQZH5Wl QhGfQhBBlsQ3DkWLGvmlpq yrkvlSX9ETQtNSQwkJ50Or 9udDogMTBw dXGAfA8dwbfln2frefikGz ViBHQmUZh0MMa2ZKDlkHoi OoZhFDN3TgT3LSL1sKQboG 1hbGlnbjog aH1bG2CfUQNnfkwzEr54yW 6sZdVeOoG7UDuwYqz+V0FH DqCHLOHWOEMHBJ7BYXCYEp wvdGQ+PHRk ETU2eRmvRUshTLGatK5xXK VeX3f3MfVtNyG4LGsvW8Kv KWKphucaBq30qP2wJzTfGu R3TOjiL6Yp hbN4OBNcaCDdZJgwIOL9F8 9ah8B1XGZbAWXfDFQ8nID8 aO9zhMbrkfwyaUOoaSpdws VydGljYWwt TSjgV084KVOseQcuKuWaRx B2BaA2AWi6W0UhOdf9VOMp aLykYP0spQGjDHykWo6utT dvwHeoXK7g HNMjepwqNZGbdU0eAYLtpS UfjDyqTJ5gUDCzclgkm932 FqNfKXW5WNZgaFTaF5AxoY 9yOiAjMDAw GUPeM5RmaBQiAZoyA301ML uaNjJ1JZOthoGaT2QsWSJf wGbkMbF0a7U3Te1yPQFWOM FyczwvdGQ+ BGAiZSB4fRrhGAnsRZGydT 2qOKCnH3s8QrPtDrM9UQve R8FtYUXczfbmJn80lU1gBo FlXlJ2WNol H6CvgpT1MKYpvNOhYAljZX A8N27ik6J4FVZcTQXgAKZ6 aQE0rY7cxFksqbkphUXyhM sgdmVydGlj RPbcZPsnY513GRCsxTeaLz ZFTUFMRTwvdGQ+PHRkIHN0 gMwtHYhzCSXxeD7rIIBlI1 e3JmTqMbJ0 OUhvL1AzRYSfizxyDk67nQ 3rGcRiCfO2TPvfU0FrxjM5 REIopNOzRRhfTKT3J05rj9 W6KSYjOXAy CZO0jSR5qZ3xyTazbordvQ VmdDsgdmVydGljYWwtYWxp Z018RNTpfVvtWiZgXIFgZN 5jeTwvdGQ+ MP17ac23E0NuBltjCfv2VE JiAPS1gWN4fP0mYZQfOHcc a7A7sCG1J8BjlrOqji6rx0 xsYXBzZTog Y70gvHMyw5N3GRVgnLL3XP ScaUavHnOswJ20Vda+PGNv nScrs2BmVwjwf7lvj4gnwH z5BdPdGXQi kzHycWaxHEC9r7KoPr95G4 9sIHdpZHRoPSIzMCUiIHZh pUoaie8haS9sZy0+PGNvbC B0lMU0pM3q MbEuBlZ9PFbqX940SpNerS FnGuugh6mqx2vdwLt9FsBh VACkqkOjxNvhIIQ3b6ZcAm 59K3OucCzo z8BjQxz3bu56bGQwg0M8uR D5V8XpYIHglulcxCIhmSaa ZW5oSYKfcqeiEADnmV9pGA KzY4r3VyBe HeC9AWmfB3LiqcN9QKCwbH PbNPEsmYRIkN2qdjujw7wl jmcsZrDyKRGvTQo0OIp8EO FsaWduOiBs ZAV0ObH8OBX4oDXdnT1jrJ uynveocV2qTdc+BHx5x1ir nROxYO8ztTJ0XG57XI86cK Pol9A5fIA6 N8HuBFOmwwhxhntasMK4OK NsGTMknZ17Jk7xzYkrZj0p HKMqITH0HGIweMDzG8EflF 9yOiAjMDAw GYGwL3BgtWCfSQfgY691XE mgFaV4LDKdtsFaI3TlHGPa yRzwBrS6l3T4Mq0QAK48GV 86KA79qNHf l3X0aBO3M1TzJFNrfctduh qcmVZ6PRFbQRXjaI38Wt7h bCutEv5jCVPzBTK8ZNZstL PzI6LizI5d PpBpPHZmSWVsI0FdpFEeOI mwT242BZavCxV1WTVcisQf T7ImYNOesVkrDiV5g7Z0Tf 3LWx25ER21 DO08cGNkg5Z3aPJ4A0WmUG CxztriqspapAS8WUIgGAHs vC62Vr5adZeaOq8tIKWtFH H7BZHtgMCq G9XeoX6hFtAwGGOvCTXcT0 HaaPRdJYxqC718ISxoKfF8 MSAjvsDyM6IwYMPfnCitWh W4h7C1Mq8H ZCphqoi1O1BrCtfvlLA+PC 17WRLmRS64vZMfyOAzu7gi bSn6QxGrXOFeYQM8oIxtIH urt9WiNEBf Y29 (more content not included)... Normal [facility] .Auto Diff 03-21-2023 Auto [place] % 10 % Normal 12 [facility] Comment on above: Performed By: #### 7 467150, [id number], 0418672, 63871832, 2131342711, 5778067508, 1066971741 ####[facility] (DEFAULT)[address] [place] [address] 06703 Baso Abs# 0.1 x10 Normal 0.0-0.2 [facility] Comment on above: Performed By: #### 7 124675, 1625564024, 0130775, 51764402, 4941108244, 4284466943, 3168949750 ####[facility] (DEFAULT)[address] [place] [address] 87249 Basophils/100 WBC (Bld) 0.9 % Normal 0.2-2.0 [facility] Comment on above: Performed By: #### 7 259375, 5925395179, 6075832, 80451821, 4469046784, 2985459221, 9289623797 ####[facility] (DEFAULT)[address] [place] [address] 67982 Eos Abs# 0.0 x10 Normal 0.0-0.4 [facility] Comment on above: Performed By: #### 7 130928, 1096129107, 2994101, 78366037, 7165061115, 0375505096, 2804991769 ####[facility] (DEFAULT)[address] [place] [address] 90949 Eosinophils/100 WBC (Bld) 0.4 % Low 0.9-4.0 [facility] Comment on above: Performed By: #### 7 868728, 0536729075, 1188712, 95413454, 1007294236, 2673922828, 8637419480 ####[facility] (DEFAULT)[address] [place] [address] 73074 Lymph Abs# 1.8 x10 Normal 1.3-2.9 [facility] Comment on above: Performed By: #### 7 967320, 0699490631, 5498415, 34410916, 8371597085, 7582520530, 1683706341 ####[facility] (DEFAULT)[address] [place] [address] 56509 Lymphocytes/100 WBC (Bld) 27 % Normal 14-48 [facility] Comment on above: Performed By: #### 7 351981, 0858419518, 3017550, 30452926, 8959996008, 8811630944, 2829796909 ####[facility] (DEFAULT)[address] [place] [address] 85301 [place] Abs# 0.6 x10 Normal 0.0-0.8 [facility] Comment on above: Performed By: #### 7 545788, 1373789619, 8144536, 19219276, 0590155147, 2527786592, 9778030149 ####[facility] (DEFAULT)[address] [place] [address] 15907 Neut Abs# 4.0 x10 Normal 1.5-9.2 [facility] Comment on above: Performed By: #### 7 345928, 6811749830, 8121378, 55454458, 2829427459, 5837556677, 2205797894 ####[facility] (DEFAULT)[address] [place] [address] Neutrophils/100 WBC (Bld) 61 % Normal 44-88 [facility] Comment on above: Performed By: #### 7 030250, 1128398186, 1055735, 31423669, 8266006587, 5582339455, 6354361828 ####[facility] (DEFAULT)[address] [place] [address] ABORhon 03-21-2023 ABO and Rh group Nom (Bld) Hx Check: Found Anti-A: 4+ Anti-B: 0 Anti-D: 4+ DCon: NT A1: 0 B: 4+ ABORh Interp: A POS Invalid Interpretation Code [facility] Comment on above: Performed By: #### 1 [id number], [id number] ####[facility] (DEFAULT)[address] [place] [address] CBC w/ Auto Diffon Erythrocyte distribution width (RBC) [Ratio] 13.4 % Normal 11.5-15.0 [facility] Comment on above: Performed By: #### 7 691451, 2284540720, 1661802, 41745743, 3236557298, 0164800188, 4004698391 ####[facility] (DEFAULT)[address] [place] [address] Hematocrit (Bld) [Volume fraction] 39.9 % Normal 33.7-40.4 [facility] Comment on above: Performed By: #### 7 272787, 2888314757, 3960194, 06763906, 9428091956, 4500962308, 4935687869 ####[facility] (DEFAULT)[address] [place] [address] Hemoglobin (Bld) [Mass/Vol] 13.8 g/dL Normal 11.3-15.9 [facility] Comment on above: Performed By: #### 7 790972, 8307098255, 9743381, 43965829, 2343595064, 9465771640, 5229411313 ####[facility] (DEFAULT)[address] [place] [address] Man Diff? Auto Invalid Interpretation Code [facility] Comment on above: Performed By: #### 7 054511, 2375722253, 9263865, 41921673, 3617817269, 1165221009, 2314216509 ####[facility] (DEFAULT)[address] [place] [address] 63017 MCH (RBC) [Entitic mass] 30 pg Normal 24-34 [facility] Comment on above: Performed By: #### 7 325654, 3045047175, 7154798, 41114468, 3523502633, 6880501531, 5568172593 ####[facility] (DEFAULT)[address] [place] [address] 79692 MCHC (RBC) [Mass/Vol] 34 g/dL Normal 26-37 [facility] Comment on above: Performed By: #### 7 575967, 4201655537, 5001838, 14669120, 2320133704, 4131430520, 5778622002 ####[facility] (DEFAULT)[address] [place] [address] 72234 MCV (RBC) [Entitic vol] 86 fL Normal 81-100 [facility] Comment on above: Performed By: #### 7 185856, 9466306178, 3462246, 73500068, 6400697429, 8845930232, 8108846592 ####[facility] (DEFAULT)[address] [place] [address] 22106 Platelet 245 x10 Normal 138-427 [facility] Comment on above: Performed By: #### 7 356829, 2020960410, 4187041, 09418504, 1201635267, 4750770221, 3965585294 ####[facility] (DEFAULT)[address] [place] [address] 19659 Platelet mean volume (Bld) [Entitic vol] 7.1 fL Normal 6.3-10.2 [facility] Comment on above: Performed By: #### 7 911474, 2880649274, 2415313, 17828493, 5536678537, 7966778872, 5650887157 ####[facility] (DEFAULT)[address] [place] [address] RBC 4.66 x10 Normal 3.70-5.30 [facility] Comment on above: Performed By: #### 7 030082, 9001916076, 8020345, 01445184, 4105694654, 8375367372, 4648183117 ####[facility] (DEFAULT)[address] [place] [address] 07215 WBC 6.5 x10 Normal 3.5-10.5 [facility] Comment on above: Performed By: #### 7 904408, 2416307662, 3209486, 83394879, 8958783359, 9408242223, 6355612551 ####[facility] (DEFAULT)[address] [place] [address] 60788 CMP Standardon 03-21-2023 eGFR Non AA >60 Invalid Interpretation Code [facility] Comment on above: Performed By: #### 7 205888, 9026086909, 6453286, 25059498, 5646702689, 0860474897, 8802129035 ####[facility] (DEFAULT)[address] [place] [address] 12369 eGFR AA >60 Invalid Interpretation Code [facility] Comment on above: Performed By: #### 7 646884, 3132464846, 5145345, 84082642, 3490013937, 8493534961, 0507841401 ####[facility] (DEFAULT)[address] [place] [address] 66650 Albumin [Mass/Vol] 4.3 g/dL Normal 3.5-5.0 [facility] Comment on above: Performed By: #### 7 009902, 5460982672, 8252295, 47859813, 5207452772, 6975152591, 0851504105 ####[facility] (DEFAULT)[address] [place] [address] 85337 Albumin/Globulin [Mass ratio] 1.2 {ratio} Low 1.4-2.6 [facility] Comment on above: Performed By: #### 7 867580, 1216863044, 7994598, 58497417, 9228636895, 5638522813, 4127257892 ####[facility] (DEFAULT)[address] [place] [address] 42456 Alk Phos 43 IU/L Normal 32-91 [facility] Comment on above: Performed By: #### 7 975959, 8051164761, 5378881, 07523314, 2059178075, 8875799050, 2355519186 ####[facility] (DEFAULT)[address] [place] [address] 40331 ALT [Catalytic activity/Vol] 23.0 U/L Normal 14.0-54.0 [facility] Comment on above: Performed By: #### 7 691436, 7557283894, 5794610, 10573163, 6586750633, 9545909833, 7305144485 ####[facility] (DEFAULT)[address] [place] [address] 56736 Anion gap [Moles/Vol] 9.7 mmol/L Normal 5.0-19.0 [facility] Comment on above: Performed By: #### 7 285580, 4604999077, 9282845, 89306156, 8013929519, 7436774556, 6549418043 ####[facility] (DEFAULT)[address] [place] [address] 78268 AST [Catalytic activity/Vol] 23 U/L Normal 15-41 [facility] Comment on above: Performed By: #### 7 304171, 3411669338, 5488255, 63607027, 5394311061, 6153020971, 8423934013 ####[facility] (DEFAULT)[address] [place] [address] 23835 Bili Total 0.8 mg/dL Normal 0.3-1.2 [facility] Comment on above: Performed By: #### 7 085382, 2420172310, 2557237, 87209961, 1826303220, 8643169613, 3655483770 ####[facility] (DEFAULT)[address] [place] [address] 00682 Calcium [Mass/Vol] 8.8 mg/dL Low 8.9-10.3 [facility] Comment on above: Performed By: #### 7 025014, 3644239230, 6424334, 00089840, 0387311499, 8392047541, 5879716218 ####[facility] (DEFAULT)[address] [place] [address] 76394 Chloride [Moles/Vol] 104 mmol/L Normal 101-111 [facility] Comment on above: Performed By: #### 7 883766, 5260185461, 3114591, 65305694, 6937138489, 5326633673, 2791357584 ####[facility] (DEFAULT)[address] [place] [address] 97343 CO2 [Moles/Vol] 22 mmol/L Normal 21-32 [facility] Comment on above: Performed By: #### 7 157582, 9533820195, 7789696, 39062140, 7391962204, 9156417403, 2742615561 ####[facility] (DEFAULT)[address] [place] [address] 07448 Creatinine [Mass/Vol] 0.45 mg/dL Low 0.60-1.30 [facility] Comment on above: Performed By: #### 7 635420, 6398931967, 4849129, 44055776, 1887187204, 3395970959, 9435535040 ####[facility] (DEFAULT)[address] [place] [address] 54591 Globulin (S) [Mass/Vol] 3.5 g/dL Normal 1.5-4.3 [facility] Comment on above: Performed By: #### 7 806721, 3420827144, 5237658, 38744557, 9099136000, 6084187776, 2543302412 ####[facility] (DEFAULT)[address] [place] [address] 48166 Glucose [Mass/Vol] 84.0 mg/dL Normal 74.0-118.0 [facility] Comment on above: Performed By: #### 7 851695, 7879579844, 0614053, 86778867, 1891100345, 3761051222, 4431289000 ####[facility] (DEFAULT)[address] [place] [address] 88956 Osmolality 262 mOsm/L Invalid Interpretation Code [facility] Comment on above: Performed By: #### 7 452303, 8787855009, 5192196, 21382464, 3810884268, 9345613167, 6031871984 ####[facility] (DEFAULT)[address] [place] [address] 10251 Potassium [Moles/Vol] 3.7 mmol/L Normal 3.6-5.1 [facility] Comment on above: Performed By: #### 7 344970, 6966319799, 8693169, 56964226, 2705606827, 9345286087, 4369979729 ####[facility] (DEFAULT)[address] [place] [address] 47624 Protein [Mass/Vol] 7.8 g/dL Normal 6.5-8.1 [facility] Comment on above: Performed By: #### 7 205793, 6996161107, 6586812, 94795926, 3701959644, 3231730896, 6954968979 ####[facility] (DEFAULT)[address] [place] [address] 43378 Sodium [Moles/Vol] 132.0 mmol/L Low 136.0-144.0 [facility] Comment on above: Performed By: #### 7 703588, 2055838407, 7615553, 04089006, 8132294674, 5612040651, 7486870171 ####[facility] (DEFAULT)[address] [place] [address] 83151 Urea nitrogen [Mass/Vol] 7 mg/dL Low 8-26 [facility] Comment on above: Performed By: #### 7 674435, 8065374714, 3712187, 33379407, 2946881677, 9708881565, 1642857716 ####[facility] (DEFAULT)[address] [place] [address] Urea nitrogen/Creatinine [Mass ratio] 15.5 mg/mg Normal 4.6-16.2 [facility] Comment on above: Performed By: #### 7 908081, 4273317119, 8801937, 52319523, 0850314560, 3402171495, 1963736254 ####[facility] (DEFAULT)[address] [place] [address] ED Clinical Summaryon 2022 ED Clinical Summary [facility] - Emergency Department [address] [place] [address] ED Clinical Summary PERSON INFORMATION Name: BETTY RAMIREZ Age: 27 Years Sex: FEMALE : 1995 MRN: Acct#: Visit Reason: Abdominal pain - ; Nausea; NAUSEA, ABD PAIN, 7 WEEKS Arrival: 03/21/2023 12:26:18 Discharge: 03/21/2023 17:51:00 LOS: 000 05:25 Check In: 03/21/2023 12:26:18 Checkout:03/21/2023 17:51:00 Address: [address] [place] [address] PCP: Caden Lauren MD PROVIDER INFORMATION Provider [...] EDUCATION INFORMATION Instructions: Nausea and Vomiting, Adult, Viuy-fy-Nuhe; Warning Signs During Follow-Up: With: Address: When: Caden Lauren MD [facility] [id number] [address] Within 3 to 5 days DIAGNOSIS: 1:Abdominal with intrauterine ; 2:Nausea and vomiting in Patient Understands: Yes - Patient/family/caregiv er verbalizes understanding of instructions given Comment: [facility] ED Note-Nursingon 03-21-2023 ED Note-Nursing Patient arrives to [facility] ED via private vehicle. Ambulated with a steady gait to ED room 8. Alert and oriented X4. C/O nausea, vomiting, and mid-left abdominal pain. Patient reports she believes she is approximately 7 week . Reports experiencing cramping and spotting approximately 1 weeks ago. History of preeclampsia. 3 Para 2. [facility] ED Patient Summaryon 023 ED Patient Summary [facility] - Emergency Department [address] [place], [place] [id number] PATIENT DISCHARGE INSTRUCTIONS Patient Information Name: BETTY RAMIREZ Age: 27 Years Date of : 1995 Reason For Visit: Abdominal pain - ; Nausea; NAUSEA, ABD PAIN, 7 WEEKS Arrival Time: 03/21/2023 12:26:18 Primary Care Physician: Caden Lauren MD Attending Physician: Armando Nieto DO Comment: Visit Diagnosis: Diagnoses This Visit Abdominal pain - ([id number]) Abdominal with intrauterine (O00.01) Nausea ([id number] g) Nausea and vomiting in (O21.9) The Pharmacy at [facility] is open Thursday through Thursday from [...] alcohol and/or drug addiction problems; contact the [facility] 02/02 Crisis Hotline -Text 4HOPE to [phone]. If you received any narcotics, sedation, or [...] documents With: Address: When: Caden Lauren MD [facility] [address] [facility] [address] [place] [address] Within 3 to 5 days Medication Information: The exam and treatment you received today in the [facility] Emergency Department were for an urgent problem and are not intended as complete care. It is important for you to follow up with a doctor, nurse practitioner, or physician?s timber management assistant for ongoing care. If your symptoms [...] so we can reach you if necessary. [facility] Emergency Department has provided you with a complete list of medications post discharge. Please inform your bus cleaner/provider of your visit and for further instruction on these medications. Any specific questions regarding your chronic medications and dosages should be discussed with your primary care physician(s) and/or pharmacist. New Medications [facility] [id number], [address] [place], [place] [id number], [phone] ondansetron (ondansetron 4 mg oral tablet) 1 [...] ? Have cracked (more content not included)... [facility] 03-21-2023 Tube Collected Yes Invalid Interpretation Code [facility] Comment on above: Performed By: #### 7 663594, 6066270258, 4053446, 49653848, 8934774246, 1351971190, 7256825309 #### [facility] (DEFAULT) [address] [place] [address] Performed By: #### 7 732991, 7076322682, 8958863, 90713898, 0141520462, 7224033434, 9300487858 ####[facility] (DEFAULT)[address] [place] [address] 62045 RhIG.on 03-21-2023 RhIG. No. Vials RhI RhIG Candidate?: No Date to Give: [id number] RhIG Status: NA [facility] Comment on above: Performed By: #### 1 [id number], [id number] ####[facility] (DEFAULT)[address] [place] [address] 04854 UA w Culture if Ind Standard on 03-21-2023 Breakpoint UA Normal [facility] Comment on above: Performed By: #### 1 [id number] ####[facility] (DEFAULT)[address] [place] [address] 26434 Color (U) Yellow Normal [facility] Comment on above: Performed By: #### 1 [id number] ####[facility] (DEFAULT)[address] [place] [address] 42536 Culture? Not Indicated Invalid Interpretation Code [facility] Comment on above: Result Comment: Resu lt created by rule GL_MAGR_ADD_UA_CULT1 Performed By: #### 1 [id number] ####[facility] (DEFAULT)[address] [place] [address] 58283 Glucose (U) [Mass/Vol] Negative Normal [facility] Comment on above: Performed By: #### 1 [id number] ####[facility] (DEFAULT)[address] [place] [address] 80370 Ketones Ql (U) Negative [facility] Comment on above: Performed By: #### 1 [id number] ####[facility] (DEFAULT)[address] [place] [address] 77008 Micro? Not Indicated Invalid Interpretation Code [facility] Comment on above: Result Comment: Resu lt created by rule GL_MAGR_ADD_UA_MICRO Performed By: #### 1 [id number] ####[facility] (DEFAULT)[address] [place] [address] 12543 UA Bilirubin Negative Normal [facility] Comment on above: Performed By: #### 1 [id number] ####[facility] (DEFAULT)[address] [place] [address] 18821 UA Blood Negative Normal NEGATIVE [facility] Comment on above: Performed By: #### 1 [id number] ####[facility] (DEFAULT)[address] [place] [address] 05386 UA Clarity CLEAR Normal CLEAR [facility] Comment on above: Performed By: #### 1 [id number] ####[facility] (DEFAULT)[address] [place] [address] 28550 UA Leuk Est Negative Normal NEGATIVE [facility] Comment on above: Performed By: #### 1 [id number] ####[facility] (DEFAULT)[address] [place] [address] 83335 UA Nitrite Negative Normal NEGATIVE [facility] Comment on above: Performed By: #### 1 [id number] ####[facility] (DEFAULT)[address] [place] [address] 72551 UA pH 6.5 Normal 5-8 [facility] Comment on above: Performed By: #### 1 [id number] ####[facility] (DEFAULT)[address] [place] [address] UA Protein Negative Normal NEGATIVE [facility] Comment on above: Performed By: #### 1 [id number] ####[facility] (DEFAULT)[address] [place] [address] 13091 UA Spec Grav <=1.005 Normal 1.001-1.035 [facility] Comment on above: Performed By: #### 1 [id number] ####[facility] (DEFAULT)[address] [place] [address] 33318 UA Urobilinogen 0.2 mg/dL Normal 0.2-1.0 [facility] Comment on above: Performed By: #### 1 [id number] ####[facility] (DEFAULT)[address] [place] [address] Urine Source Clean Catch Normal [facility] Comment on above: Performed By: #### 1 [id number] ####[facility] (DEFAULT)[address] [place] [address] 72862 US 1st Trimesteron 03-21-2023 US 1st Trimester [...] Parker MD 03/22/23 10:43 a Technologist: ARTHUR [facility] Transvaginalon 03-21-2023 Transvaginal CLINICAL HISTORY: Left lower quadrant pain. [...] MD 03/22/23 10:43 a Technologist: ARTHUR Normal [facility] hCG Quantitativeon 3 hCG Quantitative 886405.0 mIU/mL High 0.0-0.6 [facility] Comment on above: Result Comment: Post -Menopausal Reference Range is: 0.1-11.6 mIU/mL Performed By: #### 7 657757, 8330076213, 6050983, 24805956, 8777925986, 9344218675, 6383366494 ####[facility] (DEFAULT)[address] [place] [address] CBC AUTO DIFFon 04-12-2020 Basophils (Bld) [#/Vol] 0.0 103/ul Normal 0.0-0.1 [facility] Comment on above: Performed By: #### T NS #### [facility] [address] [place], [place] [address] Mikal Roselyn Basophils/100 WBC (Bld) 0.4 % Normal 0.2-2.0 [facility] Comment on above: Performed By: #### T NS #### [facility] [address] [place], [place] [address] Mikal Roselyn Eosinophils (Bld) [#/Vol] 0.1 103/ul Normal 0.0-0.7 [facility] Comment on above: Performed By: #### T NS #### [facility] [address] [place], [place] [address] Mikal Roselyn Eosinophils/100 WBC (Bld) 0.7 % Critically low 0.9-7.0 [facility] Comment on above: Performed By: #### T NS #### [facility] [address] [place] [id number] Mikal Roselyn Erythrocyte distribution width (RBC) [Ratio] 13.4 % Normal 11.0-15.0 [facility] Comment on above: Performed By: #### T NS #### [facility] [address] [place] [address] Mikal Roselyn Hematocrit (Bld) [Volume fraction] 34.1 % Critically low 36.0-48.0 [facility] Comment on above: Performed By: #### T NS #### [facility] [address] [place] [address] Mikal Roselyn Hemoglobin (Bld) [Mass/Vol] 10.9 g/dL Critically low 12.0-16.0 [facility] Comment on above: Performed By: #### T NS #### [facility] [address] [place] [address] Mikal Roselyn IG # 0.05 10e3/ul Critically high 0.00-0.03 [facility] Comment on above: Performed By: #### T NS #### [facility] [address] [place] [address] Mikal Roselyn IG % 0.5 % Normal 0.0-0.5 [facility] Comment on above: Performed By: #### T NS #### [facility] [address] [place] [address] Mikal Roselyn Lymphocytes (Bld) [#/Vol] 2.4 103/ul Normal 1.2-3.8 [facility] Comment on above: Performed By: #### T NS #### [facility] [address] [place] [address] Mikal Roselyn Lymphocytes/100 WBC (Bld) 22.5 % Normal 20.5-60.0 [facility] Comment on above: Performed By: #### T NS #### [facility] [address] [place] [address] Mikal Dempsey MANUAL DIFF REQ NO Normal [facility] Comment on above: Performed By: #### T NS #### [facility] [address], [place] [address] Mikalrena Hensleyen MCH (RBC) [Entitic mass] 27.7 pg Normal 26.7-34.0 [facility] Comment on above: Performed By: #### T NS #### [facility] [address], [place] [address] Mikalrena Dempsey MCHC (RBC) [Mass/Vol] 32.0 g/dL Normal 29.9-35.2 [facility] Comment on above: Performed By: #### T NS #### [facility] [address], [place] [address] Mikal Roselyn MCV (RBC) [Entitic vol] 86.5 fL Normal 81.0-99.0 [facility] Comment on above: Performed By: #### T NS #### [facility] [address] [place] [id number] Mikal Roselyn Monocytes (Bld) [#/Vol] 1.4 103/ul Critically high 0.3-0.8 [facility] Comment on above: Performed By: #### T NS #### [facility] [address] [place] [address] Mikal Roselyn Monocytes/100 WBC (Bld) 12.4 % Critically high 1.7-12.0 [facility] Comment on above: Performed By: #### T NS #### [facility] [address] [place] [address] Mikal Roselyn Neutrophils (Bld) [#/Vol] 6.9 103/ul Critically high 1.4-6.5 [facility] Comment on above: Performed By: #### T NS #### [facility] [address] [place] [address] Mikal Roselyn Neutrophils/100 WBC (Bld) 63.5 % Normal 43.0-75.0 [facility] Comment on above: Performed By: #### T NS #### [facility] [address] [place] [address] Mikal Roselyn Platelet mean volume (Bld) [Entitic vol] 9.9 fL Normal 9.5-13.5 [facility] Comment on above: Performed By: #### T NS #### [facility] [address] [place], [place] [id number] Mikal Roselyn Platelets (Bld) [#/Vol] 194 103/ul Normal 150-450 [facility] Comment on above: Performed By: #### T NS #### [facility] [address] [place], [place] [address] Mikal Roselyn RBC (Bld) [#/Vol] 3.94 106/ul Critically low 4.20-5.40 [facility] Comment on above: Performed By: #### T NS #### [facility] [address] [place], [place] [address] Mikal Roselyn WBC (Bld) [#/Vol] 10.9 103/ul Normal 4.0-11.0 [facility] Comment on above: Performed By: #### T NS #### [facility] [address] [place], [place] [id number] Mikal Roselyn CBC AUTO DIFFon 04-10-2020 Basophils (Bld) [#/Vol] 0.0 103/ul Normal 0.0-0.1 [facility] Comment on above: Performed By: #### A 1C #### [facility] [address] [place], [place] [id number] Mikal Roselyn Basophils/100 WBC (Bld) 0.2 % Normal 0.2-2.0 [facility] Comment on above: Performed By: #### A 1C #### [facility] [address] [place], [place] [address] Mikal Roselyn Eosinophils (Bld) [#/Vol] 0.0 103/ul Normal 0.0-0.7 [facility] Comment on above: Performed By: #### A 1C #### [facility] [address] [place], [place] [address] Mikal Roselyn Eosinophils/100 WBC (Bld) 0.2 % Critically low 0.9-7.0 [facility] Comment on above: Performed By: #### A 1C #### [facility] [address] [place], [place] [address] Mikal Roselyn Erythrocyte distribution width (RBC) [Ratio] 13.3 % Normal 11.0-15.0 [facility] Comment on above: Performed By: #### A 1C #### [facility] [address] [place] [address] Mikal Dempsey Hematocrit (Bld) [Volume fraction] 34.8 % Critically low 36.0-48.0 [facility] Comment on above: Performed By: #### A 1C #### [facility] [address] [place] [address] Mikal Dempsey Hemoglobin (Bld) [Mass/Vol] 11.4 g/dL Critically low 12.0-16.0 [facility] Comment on above: Performed By: #### A 1C #### [facility] [address] [place] [address] Mikalrena Dempsey IG # 0.04 10e3/ul Critically high 0.00-0.03 [facility] Comment on above: Performed By: #### A 1C #### [facility] [address] [place] [address] Mikal Dempsey IG % 0.5 % Normal 0.0-0.5 [facility] Comment on above: Performed By: #### A 1C #### [facility] [address] [place] [address] Mikal Dempsey Lymphocytes (Bld) [#/Vol] 1.4 103/ul Normal 1.2-3.8 [facility] Comment on above: Performed By: #### A 1C #### [facility] [address] [place] [address] Mikal Dempsey Lymphocytes/100 WBC (Bld) 16.3 % Critically low 20.5-60.0 [facility] Comment on above: Performed By: #### A 1C #### [facility] [address] [place], [place] [address] Mikal Dempsey MANUAL DIFF REQ NO Normal [facility] Comment on above: Performed By: #### A 1C #### [facility] [address] [place], [place] [address] Mikal Dempsey MCH (RBC) [Entitic mass] 27.7 pg Normal 26.7-34.0 [facility] Comment on above: Performed By: #### A 1C #### [facility] [address] [place], [place] [address] Mikal Dempsey MCHC (RBC) [Mass/Vol] 32.8 g/dL Normal 29.9-35.2 [facility] Comment on above: Performed By: #### A 1C #### [facility] [address] [place], [place] [address] Mikalrena Dempsey MCV (RBC) [Entitic vol] 84.5 fL Normal 81.0-99.0 [facility] Comment on above: Performed By: #### A 1C #### [facility] [address] [place] [address] Mikal Roselyn Monocytes (Bld) [#/Vol] 1.1 103/ul Critically high 0.3-0.8 [facility] Comment on above: Performed By: #### A 1C #### [facility] [address] [place] [address] Mikalrena Hensleyen Monocytes/100 WBC (Bld) 12.6 % Critically high 1.7-12.0 [facility] Comment on above: Performed By: #### A 1C #### [facility] [address] [place] [address] Mikal Roselyn Neutrophils (Bld) [#/Vol] 6.1 103/ul Normal 1.4-6.5 [facility] Comment on above: Performed By: #### A 1C #### [facility] [address] [place], [place] [address] Mikal Roselyn Neutrophils/100 WBC (Bld) 70.2 % Normal 43.0-75.0 [facility] Comment on above: Performed By: #### A 1C #### [facility] [address] [place], [place] [address] Mikalrena Dempsey Platelet mean volume (Bld) [Entitic vol] 10.3 fL Normal 9.5-13.5 [facility] Comment on above: Performed By: #### A 1C #### [facility] [address] [place] [address] Mikal Dempsey Platelets (Bld) [#/Vol] 232 103/ul Normal 150-450 [facility] Comment on above: Performed By: #### A 1C #### [facility] [address] [place] [address] Mikal Dempsey RBC (Bld) [#/Vol] 4.12 106/ul Critically low 4.20-5.40 [facility] Comment on above: Performed By: #### A 1C #### [facility] [address] [place] [address] Mikal Dempsey WBC (Bld) [#/Vol] 8.7 103/ul Normal 4.0-11.0 [facility] Comment on above: Performed By: #### A 1C #### [facility] [address] [place] [address] Mikal Dempsey DRUG SCREEN RAPID (URINE)on 04-10-2020 AMP Negative Normal NEGATIVE [facility] Comment on above: Performed By: #### A 1C #### [facility] [address] [place] [address] Mikal Roselyn BAR Negative Normal NEGATIVE [facility] Comment on above: Performed By: #### A 1C #### [facility] [address] [place] [address] Mikal Roselyn BUP Negative Normal NEGATIVE [facility] Comment on above: Performed By: #### A 1C #### [facility] [address] [place] [address] Mikal Roselyn BZO Negative Normal NEGATIVE [facility] Comment on above: Performed By: #### A 1C #### [facility] [address] [place] [address] Mikal Roselyn MADDY Negative Normal NEGATIVE [facility] Comment on above: Performed By: #### A 1C #### [facility] [address] [place] [address] Mikal Roselyn CUT-OFFS SEE BELOW Normal [facility] Comment on above: Result Comment: AMP [...] ng/mL Performed By: #### A 1C #### [facility] [address] [place] [address] DRUG CUT HEADER DRUG CLASS TEST SYST EM CUT-OFF CONCENTRATIONS ARE FOLLOWS: Normal [facility] Comment on above: Performed By: #### A 1C #### [facility] [address] [place] [address] Mikal Roselyn mAMP Negative Normal NEGATIVE [facility] Comment on above: Performed By: #### A 1C #### [facility] [address] [place] [address] Mikal Roselyn MTD Negative Normal NEGATIVE [facility] Comment on above: Performed By: #### A 1C #### [facility] [address] [place] [address] OPI Negative Normal NEGATIVE [facility] Comment on above: Performed By: #### A 1C #### [facility] [address] [place] [address] Mikal Roselyn OXY Negative Normal NEGATIVE [facility] Comment on above: Performed By: #### A 1C #### [facility] [address] [place] [address] PCP Negative Normal NEGATIVE [facility] Comment on above: Performed By: #### A 1C #### [facility] [address] [place] [address] PPX Negative Normal NEGATIVE [facility] Comment on above: Performed By: #### A 1C #### [facility] [address] [place] [address] [facility] Normal NEGATIVE [facility] Comment on above: Performed By: #### A 1C #### [facility] [address] [place], [place] [address] Mikal Dempsey THC Negative Normal NEGATIVE [facility] Comment on above: Performed By: #### A 1C #### [facility] [address] [place] [address] Mikal Roselyn TYPE AND SCREENon 04-10-2020 TYPE AND SCREEN Negative Normal [facility] Comment on above: Performed By: #### A 1C #### [facility] [address] [id number] Mikal Dempsey COVID-19 PCRon 04-06-2020 SARS-CoV-2, MAYCO Not Detected Normal Not Detected [facility] Comment on above: Result Comment: This nucleic acid amplification test was developed and its performance characteristics determined by 8aweek. Nucleic acid amplification tests include PCR and [...] assay. Performed By: #### A 1C #### [facility] [address] [place], [place] [address] Mikal Dempsey DRUG SCREEN RAPID (URINE)on 04-05-2020 AMP Negative Normal NEGATIVE [facility] Comment on above: Performed By: #### A 1C #### [facility] [address] [place], [place] [address] Mikalrena Dempsey BAR Negative Normal NEGATIVE [facility] Comment on above: Performed By: #### A 1C #### [facility] [address] [place] [address] Mikal Roselyn BUP Negative Normal NEGATIVE [facility] Comment on above: Performed By: #### A 1C #### [facility] [address] [place] [address] [facility] Normal NEGATIVE [facility] Comment on above: Performed By: #### A 1C #### [facility] [address] [place] [address] Mikal Roselyn MADDY Negative Normal NEGATIVE [facility] Comment on above: Performed By: #### A 1C #### [facility] [address] [place] [address] CUT-OFFS SEE BELOW Normal [facility] Comment on above: Result Comment: AMP (Amphetamine): [...] ng/mL Performed By: #### A 1C #### [facility] [address] [place] [address] DRUG CUT HEADER DRUG CLASS TEST SYST EM CUT-OFF CONCENTRATIONS ARE FOLLOWS: Normal [facility] Comment on above: Performed By: #### A 1C #### [facility] [address] [place] [address] [facility] m[facility] Negative Normal NEGATIVE [facility] Comment on above: Performed By: #### A 1C #### [facility] [address] [place] [address] Mikal Roselyn MTD Negative Normal NEGATIVE [facility] Comment on above: Performed By: #### A 1C #### [facility] [address] [address] Mikal Roselyn OPI Negative Normal NEGATIVE [facility] Comment on above: Performed By: #### A 1C #### [facility] [address] [place] [address] Mikal Roselyn OXY Negative Normal NEGATIVE [facility] Comment on above: Performed By: #### A 1C #### [facility] [address] [address] Mikal Roselyn PCP Negative Normal NEGATIVE [facility] Comment on above: Performed By: #### A 1C #### [facility] [address] [place] [address] Mikal Roselyn PPX Negative Normal NEGATIVE [facility] Comment on above: Performed By: #### A 1C #### [facility] [address] [place] [address] Mikal Roselyn TCA Negative Normal NEGATIVE [facility] Comment on above: Performed By: #### A 1C #### [facility] [address] [place] [address] Mikal Roselyn THC Negative Normal NEGATIVE [facility] Comment on above: Performed By: #### A 1C #### [facility] [address] [place] [address] Mikal Roselyn US PREG BIOPHY W NON [...] LEFTY GALE Date: 2020-04-03 13:48 Normal [facility] US PREG BIOPHY W NON STRESSo [...] VANCE DING Date: 2020-03-27 13:51 Normal [facility] CHLAMYDIA/GONOCOCCUS MAYCO ( AB/URINE/PAPon 03-23-2020 Chlamydia trachomatis, MAYCO Negative Normal Negative [facility] Comment on above: Performed By: #### A 1C #### [facility] [address] [place] [address] Mikal Dempsey Neisseria gonorrhoeae, MAYCO Negative Normal Negative [facility] Comment on above: Performed By: #### A 1C #### [facility] [address] [place] [address] Mikal Dempsey PREG BIOPHY W NON STRESSo n 03-22-2020 [...] by: FARRUKH PARK Date: 2020-03-22 02:34 Normal [facility] GROUP B STREP CULTUREon S. agalactiae Ag Ql (Unsp spec) Culture Observations: Negative for Group B Streptococcus. Normal [facility] Comment on above: Performed By: #### A 1C #### [facility] [address] [place] [address] Mikal Dempsey PREG GROWTHon 03-12-2020 US PREG GROWTH EXAMINATION: US PREG GROWTH HISTORY: [...] LEFTY GALE Date: 2020-03-12 09:32 Normal [facility] COVID-19 PCRon 02-24-2020 SARS-CoV-2, MAYCO Not Detected Normal Not Detected [facility] Comment on above: Result Comment: This test was developed and its performance characteristics determined by 8aweek. This test has not been FDA cleared [...] assay. Performed By: #### P REGQNT #### [facility] [address] [place] [address] Mikal Roselyn CBC AUTO DIFFon 02-18-2020 Basophils (Bld) [#/Vol] 0.0 103/ul Normal 0.0-0.1 [facility] Comment on above: Performed By: #### P REGQNT #### [facility] [address] [place] [address] Mikal Roselyn Basophils/100 WBC (Bld) 0.2 % Normal 0.2-2.0 [facility] Comment on above: Performed By: #### P REGQNT #### [facility] [address] [place], [place] [address] Mikal Roselyn Eosinophils (Bld) [#/Vol] 0.0 103/ul Normal 0.0-0.7 [facility] Comment on above: Performed By: #### P REGQNT #### [facility] [address] [place], [place] [address] Mikal Roselyn Eosinophils/100 WBC (Bld) 0.3 % Critically low 0.9-7.0 [facility] Comment on above: Performed By: #### P REGQNT #### [facility] [address] [place], [place] [address] Mikal Roselyn Erythrocyte distribution width (RBC) [Ratio] 13.0 % Normal 11.0-15.0 [facility] Comment on above: Performed By: #### P REGQNT #### [facility] [address] [id number] Mikal Roselyn Hematocrit (Bld) [Volume fraction] 36.3 % Normal 36.0-48.0 [facility] Comment on above: Performed By: #### P REGQNT #### [facility] [address] [place] [address] Mikal Roselyn Hemoglobin (Bld) [Mass/Vol] 11.9 g/dL Critically low 12.0-16.0 [facility] Comment on above: Performed By: #### P REGQNT #### [facility] [address] [place] [address] Mikal Roselyn IG # 0.04 10e3/ul Critically high 0.00-0.03 [facility] Comment on above: Performed By: #### P REGQNT #### [facility] [address] [place] [address] Mikal Roselyn IG % 0.5 % Normal 0.0-0.5 [facility] Comment on above: Performed By: #### P REGQNT #### [facility] [address] [place] [address] Mikal Roselyn Lymphocytes (Bld) [#/Vol] 1.6 103/ul Normal 1.2-3.8 [facility] Comment on above: Performed By: #### P REGQNT #### [facility] [address] [place] [address] Mikal Dempsey Lymphocytes/100 WBC (Bld) 18.9 % Critically low 20.5-60.0 [facility] Comment on above: Performed By: #### P REGQNT #### [facility] [address] [place], [place] [address] Mikalrena Hensleyen MANUAL DIFF REQ NO Normal [facility] Comment on above: Performed By: #### P REGQNT #### [facility] [address] [place], [place] [address] Mikalrena Dempsey MCH (RBC) [Entitic mass] 29.5 pg Normal 26.7-34.0 [facility] Comment on above: Performed By: #### P REGQNT #### [facility] [address] [id number] Mikalrena Dempsey MCHC (RBC) [Mass/Vol] 32.8 g/dL Normal 29.9-35.2 [facility] Comment on above: Performed By: #### P REGQNT #### [facility] [address] [place], [place] [address] Mikalrena Dempsey MCV (RBC) [Entitic vol] 90.1 fL Normal 81.0-99.0 [facility] Comment on above: Performed By: #### P REGQNT #### [facility] [address] [place], [place] [address] Mikal Roselyn Monocytes (Bld) [#/Vol] 1.1 103/ul Critically high 0.3-0.8 [facility] Comment on above: Performed By: #### P REGQNT #### [facility] [address] [place] [address] Mikal Roselyn Monocytes/100 WBC (Bld) 12.6 % Critically high 1.7-12.0 [facility] Comment on above: Performed By: #### P REGQNT #### [facility] [address] [place], [place] [address] Mikal Roselyn Neutrophils (Bld) [#/Vol] 5.8 103/ul Normal 1.4-6.5 [facility] Comment on above: Performed By: #### P REGQNT #### [facility] [address] [place], [place] [address] Mikal Roselyn Neutrophils/100 WBC (Bld) 67.5 % Normal 43.0-75.0 [facility] Comment on above: Performed By: #### P REGQNT #### [facility] [address] [place], [place] [address] Mikal Roselyn Platelet mean volume (Bld) [Entitic vol] 9.6 fL Normal 9.5-13.5 [facility] Comment on above: Performed By: #### P REGQNT #### [facility] [address] [place], [place] [address] Mikal Roselyn Platelets (Bld) [#/Vol] 204 103/ul Normal 150-450 [facility] Comment on above: Performed By: #### P REGQNT #### [facility] [address] [place], [place] [address] Mikal Dempsey RBC (Bld) [#/Vol] 4.03 106/ul Critically low 4.20-5.40 [facility] Comment on above: Performed By: #### P REGQNT #### [facility] [address] [place] [address] Mikal Dempsey WBC (Bld) [#/Vol] 8.6 103/ul Normal 4.0-11.0 [facility] Comment on above: Performed By: #### P REGQNT #### [facility] [address] [place], [place] [address] Mikal Dempsey CULTURE URINEon 02-18-2020 CULTURE URINE Culture Observations : NORMAL GENITAL SIERRA. NO POTENTIAL PATHOGENS SEEN. Normal [facility] Comment on above: Performed By: #### P REGQNT #### [facility] [address] [place] [address] Mikal Dempsey LDHon 02-18-2020 LDH 142 U/L Normal 122-222 [facility] Comment on above: Performed By: #### P REGQNT #### [facility] [address] [place], [place] [address] Mikal Dempsey PROF 14(COMP METB)on 020 Albumin [Mass/Vol] 2.5 g/dL Critically low 3.5-5.0 [facility] Comment on above: Performed By: #### P REGQNT #### [facility] [address] [place], [place] [address] Mikal Dempsey Albumin/Globulin [Mass ratio] 0.7 {ratio} Normal [facility] Comment on above: Performed By: #### P REGQNT #### [facility] [address] [place], [place] [address] Mikal Dempsey ALP [Catalytic activity/Vol] 107 U/L Normal 38-126 [facility] Comment on above: Performed By: #### P REGQNT #### [facility] [address] [place], [place] [address] Mikal Roselyn ALT [Catalytic activity/Vol] 16 U/L Normal 9-52 [facility] Comment on above: Performed By: #### P REGQNT #### [facility] [address] [id number] Mikal Roselyn Anion gap [Moles/Vol] 12.1 mmol/L Normal [facility] Comment on above: Performed By: #### P REGQNT #### [facility] [address] [address] Mikal Roselyn AST [Catalytic activity/Vol] 10 U/L Critically low 14-36 [facility] Comment on above: Performed By: #### P REGQNT #### [facility] [address] [address] Mikal Roselyn Bilirubin Ql (U) 0.3 mg/dL Normal 0.2-1.3 [facility] Comment on above: Performed By: #### P REGQNT #### [facility] [address] [address] Mikal Roselyn Calcium [Mass/Vol] 8.6 mg/dL Normal 8.4-10.2 [facility] Comment on above: Performed By: #### P REGQNT #### [facility] [address] [place] [address] Mikal Roselyn Chloride [Moles/Vol] 103 mmol/L Normal 98-107 [facility] Comment on above: Performed By: #### P REGQNT #### [facility] [address] [address] Mikal Roselyn CO2 [Moles/Vol] 24.1 mmol/L Normal 22.0-30.0 [facility] Comment on above: Performed By: #### P REGQNT #### [facility] [address] [address] Mikal Roselyn Creatinine [Mass/Vol] 0.52 mg/dL Normal 0.52-1.04 [facility] Comment on above: Performed By: #### P REGQNT #### [facility] [address] [id number] Mikal Roselyn EGFR-AF COLOMBIAN >60 Normal >=60 [facility] Comment on above: Performed By: #### P REGQNT #### [facility] [address] [place] [address] Mikal Roselyn EGFR-NON AF COLOMBIAN >60 Normal >=60 [facility] Comment on above: Performed By: #### P REGQNT #### [facility] [address] [address] Mikal Roselyn Globulin (S) [Mass/Vol] 3.7 g/dL Normal [facility] Comment on above: Performed By: #### P REGQNT #### [facility] [address] [place] [address] Mikal Roselyn Glucose [Mass/Vol] 75 mg/dL Normal 74-106 [facility] Comment on above: Performed By: #### P REGQNT #### [facility] [address] [place] [address] Mikal Roselyn Potassium [Moles/Vol] 4.2 mmol/L Normal 3.4-5.0 [facility] Comment on above: Performed By: #### P REGQNT #### [facility] [address] [place] [address] Mikal Roselyn Protein [Mass/Vol] 6.2 g/dL Normal 6.1-8.2 [facility] Comment on above: Performed By: #### P REGQNT #### [facility] [address] [place] [address] Mikal Roselyn Sodium [Moles/Vol] 135 mmol/L Critically low 137-145 [facility] Comment on above: Performed By: #### P REGQNT #### [facility] [address] [place] [address] Mikal Roselyn Urea nitrogen [Mass/Vol] 3.0 mg/dL Critically low 7.0-17.0 [facility] Comment on above: Performed By: #### P REGQNT #### [facility] [address] [place] [address] Mikal Roselyn Urea nitrogen/Creatinine [Mass ratio] 5.8 mg/mg Normal [facility] Comment on above: Performed By: #### P REGQNT #### [facility] [address] [place] [address] Mikal Roselyn UA (CLEAN/CATCH) AVIATION SURVIVAL TECHNICIAN/MICRO I F IND.on 02-18-2020 Bilirubin [Mass/Vol] Negative Normal NEGATIVE [facility] Comment on above: Performed By: #### P REGQNT #### [facility] [address] [place] [address] Mikal Roselyn BLOOD Negative Normal NEGATIVE [facility] Comment on above: Performed By: #### P REGQNT #### [facility] [address] [place] [address] Mikal Roselyn Clarity (U) SL CLOUDY Normal [facility] Comment on above: Performed By: #### P REGQNT #### [facility] [address] [place] [address] Mikal Roselyn Color (U) LT. YELLOW Normal YELLOW [facility] Comment on above: Performed By: #### P REGQNT #### [facility] [address] [place] [address] Mikal Roselyn Glucose [Mass/Vol] Negative Normal NEGATIVE [facility] Comment on above: Performed By: #### P REGQNT #### [facility] [address] [place] [address] Mikal Roselyn Ketones Ql (U) Negative Normal NEGATIVE [facility] Comment on above: Performed By: #### P REGQNT #### [facility] [address] [place] [address] Mikal Roselyn Nitrite Ql (U) Negative Normal NEGATIVE [facility] Comment on above: Performed By: #### P REGQNT #### [facility] [address] [place] [address] Mikal Roselyn pH (Bld) 6.5 Normal 5-9 [facility] Comment on above: Performed By: #### P REGQNT #### [facility] [address] [place] [address] Mikal Dempsey Protein [Mass/Vol] Negative Normal [facility] Comment on above: Performed By: #### P REGQNT #### [facility] [address] [place], [place] [id number] Mikal Dempsey SPEC GRAVITY 1.025 Normal 1.005-<=1.025 [facility] Comment on above: Performed By: #### P REGQNT #### [facility] [address] [place] [address] Mikal Dempsey UR MICRO IND INDICATED Normal [facility] Comment on above: Performed By: #### P REGQNT #### [facility] [address] [place], [place] [id number] Mikal Dempsey Urobilinogen Qn (U) 1.0 EU/dl Normal [facility] Comment on above: Performed By: #### P REGQNT #### [facility] [address] [place] [address] Mikal Dempsey WBC (Bld) [#/Vol] SMALL Normal NEGATIVE [facility] Comment on above: Performed By: #### P REGQNT #### [facility] [address] [place], [place] [id number] Mikal Dempsey URIC ACID SERUMon 02-18-2020 Urate [Mass/Vol] 3.1 mg/dL Normal 2.5-6.2 [facility] Comment on above: Performed By: #### P REGQNT #### [facility] [address] [place], [place] [address] Mikal Dempsey URINE MICROSCOPIC ONLYon Bacteria LM.HPF (Urine sed) [#/Area] SMALL Normal NONE SEEN The [facility] Comment on above: Performed By: #### P REGQNT #### [facility] [address] [place] [address] Mikal Dempsey CAST NONE SEEN Normal NONE SEEN [facility] Comment on above: Performed By: #### P REGQNT #### [facility] [address] [place], [place] [address] Mikal Roselyn Crystals LM Nom (Urine sed) NONE SEEN Normal NONE SEEN [facility] Comment on above: Performed By: #### P REGQNT #### [facility] [address] [place], [place] [address] Mikal Roselyn CULTURE INDICATED Normal [facility] Comment on above: Performed By: #### P REGQNT #### [facility] [address] [place], [place] [address] Mikal Roselyn Epithelial cells LM.HPF (Urine sed) [#/Area] FEW Normal [facility] Comment on above: Performed By: #### P REGQNT #### [facility] [address] [place], [place] [address] Mikal Roselyn MUCOUS SMALL Normal NONE SEEN [facility] Comment on above: Performed By: #### P REGQNT #### [facility] [address] [place], [place] [address] Mikal Roselyn RBC (U) [#/Vol] 0-2 Normal 0-2 [facility] Comment on above: Performed By: #### P REGQNT #### [facility] [address] [place] [address] Mikal Roselyn WBC (Bld) [#/Vol] 5-10 Normal NONE SEEN [facility] Comment on above: Performed By: #### P REGQNT #### [facility] [address] [place], [place] [address] Mikal Roselyn CBC AUTO DIFFon 01-03-2020 Basophils (Bld) [#/Vol] 0.0 103/ul Normal 0.0-0.1 [facility] Comment on above: Performed By: #### C BC #### [facility] [address] [place] [address] Mikal Roselyn Basophils/100 WBC (Bld) 0.4 % Normal 0.2-2.0 [facility] Comment on above: Performed By: #### C BC #### [facility] [address] [place], [place] [address] Mikal Roselyn Eosinophils (Bld) [#/Vol] 0.1 103/ul Normal 0.0-0.7 [facility] Comment on above: Performed By: #### C BC #### [facility] [address], [place] [address] Mikal Roselyn Eosinophils/100 WBC (Bld) 0.7 % Critically low 0.9-7.0 [facility] Comment on above: Performed By: #### C BC #### [facility] [address], [place] [address] Mikal Roselyn Erythrocyte distribution width (RBC) [Ratio] 13.7 % Normal 11.0-15.0 [facility] Comment on above: Performed By: #### C BC #### [facility] [address], [place] [address] Mikal Roselyn Hematocrit (Bld) [Volume fraction] 37.8 % Normal 36.0-48.0 [facility] Comment on above: Performed By: #### C BC #### [facility] [address] [id number] Mikal Roselyn Hemoglobin (Bld) [Mass/Vol] 12.8 g/dL Normal 12.0-16.0 [facility] Comment on above: Performed By: #### C BC #### [facility] [address] [id number] Mikal Roselyn IG # 0.09 10e3/ul Critically high 0.00-0.03 [facility] Comment on above: Performed By: #### C BC #### [facility] [address] [id number] Mikal Roselyn IG % 1.2 % Critically high 0.0-0.5 [facility] Comment on above: Performed By: #### C BC #### [facility] [address], [place] [address] Mikal Roselyn Lymphocytes (Bld) [#/Vol] 1.6 103/ul Normal 1.2-3.8 [facility] Comment on above: Performed By: #### C BC #### [facility] [address] [id number] Mikal Roselyn Lymphocytes/100 WBC (Bld) 20.6 % Normal 20.5-60.0 [facility] Comment on above: Performed By: #### C BC #### [facility] [address] [id number] Mikal Dempsey MANUAL DIFF REQ NO Normal [facility] Comment on above: Performed By: #### C BC #### [facility] [address] [id number] Mikal Roselyn MCH (RBC) [Entitic mass] 31.4 pg Normal 26.7-34.0 [facility] Comment on above: Performed By: #### C BC #### [facility] [address] [id number] Mikalrena Dempsey MCHC (RBC) [Mass/Vol] 33.9 g/dL Normal 29.9-35.2 [facility] Comment on above: Performed By: #### C BC #### [facility] [address] [place], [place] [address] Mikal Roselyn MCV (RBC) [Entitic vol] 92.6 fL Normal 81.0-99.0 [facility] Comment on above: Performed By: #### C BC #### [facility] [address] [place], [place] [address] Mikal Roselyn Monocytes (Bld) [#/Vol] 0.9 103/ul Critically high 0.3-0.8 [facility] Comment on above: Performed By: #### C BC #### [facility] [address] [place], [place] [address] Mikal Roselyn Monocytes/100 WBC (Bld) 12.0 % Normal 1.7-12.0 [facility] Comment on above: Performed By: #### C BC #### [facility] [address] [place], [place] [address] Mikal Roselyn Neutrophils (Bld) [#/Vol] 4.9 103/ul Normal 1.4-6.5 [facility] Comment on above: Performed By: #### C BC #### [facility] [address] [place], [place] [address] Mikal Roselyn Neutrophils/100 WBC (Bld) 65.1 % Normal 43.0-75.0 [facility] Comment on above: Performed By: #### C BC #### [facility] [address], [place] [address] Mikalrena Dempsey Platelet mean volume (Bld) [Entitic vol] 8.9 fL Critically low 9.5-13.5 [facility] Comment on above: Performed By: #### C BC #### [facility] [address], [place] [address] Mikalrena Dempsey Platelets (Bld) [#/Vol] 205 103/ul Normal 150-450 [facility] Comment on above: Performed By: #### C BC #### [facility] [address], [place] [address] Mikal Roselyn RBC (Bld) [#/Vol] 4.08 106/ul Critically low 4.20-5.40 [facility] Comment on above: Performed By: #### C BC #### [facility] [address], [place] [address] Mikalrena Hensleyen WBC (Bld) [#/Vol] 7.6 103/ul Normal 4.0-11.0 [facility] Comment on above: Performed By: #### C BC #### [facility] [address], [place] [address] Mikal Dempsey GLUCOSE - 1HRon 01-03-2020 Glucose [Mass/Vol] 87 mg/dL Normal 74-106 [facility] Comment on above: Performed By: #### C BC #### [facility] [address], [place] [address] Mikalrena Dempsey US PREG ANATOMY SINGLEon US PREG ANATOMY [...] by: VANCE DING Date: 2019-12-02 11:29 Normal [facility] PAP ACOG PANEL 3: 21 to 29on 10-07-2019 Age Gdln ACOG Testing - Normal [facility] Comment on above: Performed By: #### C BC #### [facility] [address] [place] [address] Mikal Dempsey Chlamydia, Nuc. Acid Amp Negative Normal Negative [facility] Comment on above: Result Comment: Perf ormed at: =G Performed By: #### C BC #### [facility] [address] [place] [address] Mikal Dempsey DIAGNOSIS: Comment Abnormal [facility] Comment on above: Result Comment: EPIT HELIAL CELL ABNORMALITY. ATYPICAL SQUAMOUS CELLS OF UNDETERMINED SIGNIFICANCE (ASC-US). Performed at: WB Performed By: #### C BC #### [facility] [address] [place] [address] Mikal Dempsey Electronically signed by: Comment Normal [facility] Comment on above: Result Comment: Aretha Cheng MD, Pathologist Performed at: WB Performed By: #### C BC #### [facility] [address] [place] [address] Mikal Dempsey Gonococcus, Nuc. Acid Amp Negative Normal Negative [facility] Comment on above: Result Comment: Perf ormed at: =G Performed By: #### C BC #### [facility] [address] [place] [address] Mikal Dempsey HPV Aptima Positive Abnormal Negative [facility] Comment on above: Result Comment: This nucleic acid amplification test detects fourteen high-risk HPV types (16,18,31,33,35,39,45,51,52,56,58,59,66,68) without differentiation. Performed By: #### C BC #### [facility] [address] [address] Mikal Dempsey Methodology: Comment Normal [facility] Comment on above: Result Comment: This liquid based ThinPrep(R) pap test was screened with the use of an image guided system. Performed at: WB Performed By: #### C BC #### [facility] [address] [place] [address] Mikal Dempsey Note: Comment Normal [facility] Comment on above: Result Comment: The Pap smear is a screening test designed to aid in the detection of premalignant and malignant conditions of the uterine cervix. It is not a diagnostic procedure and should not be used as the sole means of detecting cervical cancer. Both false-positive and false-negative reports do occur. . Performed at: WB Performed By: #### C BC #### [facility] [address] [place] [address] Mikal Dempsey Pathologist Provided ICD10 Comment Normal [facility] Comment on above: Result Comment: [id number]. [id number] Performed at: WB Performed By: #### C BC #### [facility] [address] [place] [address] Mikal Dempsey Performed by: Comment Normal [facility] Comment on above: Result Comment: Perry Dial, Tool Lathe Operator (ASCP) Performed at: WB Performed By: #### C BC #### [facility] [address] [place] [address] Mikal Dempsey Recommendation: Comment Abnormal [facility] Comment on above: Result Comment: Sugg est follow up as clinically appropriate. Performed at: WB Performed By: #### C BC #### [facility] [address] [place] [address] Mikal Dempsey Reflex Criteria: Comment Normal [facility] Comment on above: Result Comment: See below for HPV testing results. . Performed at: WB Performed By: #### C BC #### [facility] [address] [address] Mikal Dempsey Specimen adequacy: Comment Normal [facility] Comment on above: Result Comment: Sati sfactory for evaluation. No endocervical component is identified. An endocervical component is not commonly seen in the patient. Performed at: WB Performed By: #### C BC #### [facility] [address] [address] Mikal Demspey . . Normal [facility] Comment on above: Result Comment: Perf ormed at: WB Performed By: #### C BC #### [facility] [address] [place] [address] Mikal Dempsey US PREG TVon 09-15-2019 US PREG TV [...] IMPRESSION: Single live intrauterine . Normal [facility] BUNon 09-05-2019 Urea nitrogen [Mass/Vol] 8.0 mg/dL Normal 7.0-17.0 [facility] Comment on above: Performed By: #### D RUGRPD, UAMIC #### [facility] [address] [place] [address] Mikal Dempsey CBC AUTO DIFFon 09-05-2019 Basophils (Bld) [#/Vol] 0.0 103/ul Normal 0.0-0.1 [facility] Comment on above: Performed By: #### D CHRISTOPHER UAMIC #### [facility] [address] [place] [address] Mikal Roselyn Basophils/100 WBC (Bld) 0.5 % Normal 0.2-2.0 [facility] Comment on above: Performed By: #### Agustin WHITE UAMIC #### [facility] [address] [place] [address] Mikal Roselyn Eosinophils (Bld) [#/Vol] 0.0 103/ul Normal 0.0-0.7 [facility] Comment on above: Performed By: #### Agustin WHITE UAMIC #### [facility] [address] [place] [address] Mikal Roselyn Eosinophils/100 WBC (Bld) 0.2 % Critically low 0.9-7.0 [facility] Comment on above: Performed By: #### Agustin WHITE UAMIC #### [facility] [address] [place] [address] Mikal Roselyn Erythrocyte distribution width (RBC) [Ratio] 12.8 % Normal 11.0-15.0 [facility] Comment on above: Performed By: #### MARLEN HIGGINSMIC #### [facility] [address] [place] [address] Mikal Roselyn Hematocrit (Bld) [Volume fraction] 40.0 % Normal 36.0-48.0 [facility] Comment on above: Performed By: #### Agustin WHITE UAMIC #### [facility] [address] [place] [address] Mikal Roselyn Hemoglobin (Bld) [Mass/Vol] 13.7 g/dL Normal 12.0-16.0 [facility] Comment on above: Performed By: #### Agustin WHITE UAMIC #### [facility] [address] [place] [address] Mikal Roselyn IG # 0.01 10e3/ul Normal 0.00-0.03 [facility] Comment on above: Performed By: #### D RUGRPD, UAMIC #### [facility] [address], [place] [address] Mikal Roselyn IG % 0.2 % Normal 0.0-0.5 [facility] Comment on above: Performed By: #### D CHRISTOPHER UAMIC #### [facility] [address], [place] [address] Mikal Roselyn Lymphocytes (Bld) [#/Vol] 1.5 103/ul Normal 1.2-3.8 [facility] Comment on above: Performed By: #### D CHRISTOPHER, UAMIC #### [facility] [address] [id number] Mikal Roselyn Lymphocytes/100 WBC (Bld) 24.3 % Normal 20.5-60.0 [facility] Comment on above: Performed By: #### D CHRISTOPHER UAMIC #### [facility] [address] [place], [place] [address] Mikal Roselyn MANUAL DIFF REQ NO Normal [facility] Comment on above: Performed By: #### D CHRISTOPHER UAMIC #### [facility] [address] [place], [place] [address] Mikal Roselyn MCH (RBC) [Entitic mass] 29.8 pg Normal 26.7-34.0 [facility] Comment on above: Performed By: #### D CHRISTOPHER, UAMIC #### [facility] [address] [place], [place] [address] Mikal Roselyn MCHC (RBC) [Mass/Vol] 34.3 g/dL Normal 29.9-35.2 [facility] Comment on above: Performed By: #### D CHRISTOPHER UAMIC #### [facility] [address] [id number] Mikal Roselyn MCV (RBC) [Entitic vol] 87.1 fL Normal 81.0-99.0 [facility] Comment on above: Performed By: #### D CHRISTOPHER, UAMIC #### [facility] [address], [place] [address] Mikal Roselyn Monocytes (Bld) [#/Vol] 0.7 103/ul Normal 0.3-0.8 [facility] Comment on above: Performed By: #### D CHRISTOPHER UAMIC #### [facility] [address] [place] [address] Mikal Roselyn Monocytes/100 WBC (Bld) 11.2 % Normal 1.7-12.0 [facility] Comment on above: Performed By: #### Agustin WHITE UAMIC #### [facility] [address] [place] [address] Mikal Roselyn Neutrophils (Bld) [#/Vol] 4.0 103/ul Normal 1.4-6.5 [facility] Comment on above: Performed By: #### Agustin WHITE UAMIC #### [facility] [address] [place], [place] [address] Mikal Roeslyn Neutrophils/100 WBC (Bld) 63.6 % Normal 43.0-75.0 [facility] Comment on above: Performed By: #### Agustin WHITE UAMIC #### [facility] [address] [place], [place] [address] Mikal Roselyn Platelet mean volume (Bld) [Entitic vol] 8.9 fL Critically low 9.5-13.5 [facility] Comment on above: Performed By: #### Agustin WHITE UAMIC #### [facility] [address] [place] [address] Mikal Roselyn Platelets (Bld) [#/Vol] 260 103/ul Normal 150-450 [facility] Comment on above: Performed By: #### Agustin WHITE UAMIC #### [facility] [address] [place] [address] Mikal Roselyn RBC (Bld) [#/Vol] 4.59 106/ul Normal 4.20-5.40 [facility] Comment on above: Performed By: #### Agustin WHITE, UAMIC #### [facility] [address] [place] [address] Mikal Roselyn WBC (Bld) [#/Vol] 6.3 103/ul Normal 4.0-11.0 [facility] Comment on above: Performed By: #### D CHRISTOPHER UAMIC #### [facility] [address] [id number] Mikalrena Dempsey CREATININEon 09-05-2019 Creatinine [Mass/Vol] mg/dL Normal >=60 [facility] Comment on above: Performed By: #### Agustin WHITE UAMIC #### [facility] [address] [place] [address] Mikal Roselyn Creatinine [Mass/Vol] 0.65 mg/dL Normal 0.52-1.04 [facility] Comment on above: Performed By: #### D CHRISTOPHER UAMIC #### [facility] [address] [place] [address] Mikal Roselyn CREATININE CLEARon 0 CREA CLEARANCE 136.03 ml/min Critically high 75.00-115.00 [facility] Comment on above: Performed By: #### Agustin WHITE UAMIC #### [facility] [address] [place] [address] Mikal Roselyn CREA, 24 HR UR 1287.99 mg/24 hr Normal 800.00-1, 800. 00 [facility] Comment on above: Performed By: #### Agustin WHITE UAMIC #### [facility] [address] [place] [address] Mikal Roselyn UR TOT VOL 900 ml/24 HR Normal [facility] Comment on above: Performed By: #### Agustin WHITE UAMIC #### [facility] [address] [place] [address] Mikal Roselyn URINE CREAT 143.11 mg/dL Normal 20.00-300.00 [facility] Comment on above: Performed By: #### Agustin WHITE UAMIC #### [facility] [address] [place], [place] [address] Mikalrena Dempsey GLUCOSE - 1HRon 09-05-2019 Glucose [Mass/Vol] 94 mg/dL Normal 74-106 [facility] Comment on above: Performed By: #### C BC #### [facility] [address] [place] [address] Mikal Roselyn LDHon 09-05-2019 LDH 137 U/L Normal 122-222 [facility] Comment on above: Performed By: #### C BC #### [facility] [address] [place], [place] [address] Mikal Dempsey PROTEIN 24HR URINEon 020 T PROT, 24 HR UR 127.8 mg/24 hr Normal 42.0-225.0 [facility] Comment on above: Performed By: #### D CHRISTOPHER UAMIC #### [facility] [address] [place], [place] [address] Mikalrena Dempsey UR PROT 14.2 mg/dL Critically high <=12.0 [facility] Comment on above: Performed By: #### D CHRISTOPHER UAMIC #### [facility] [address] [place], [place] [address] Mikal Roselyn SGOTon 09-05-2019 AST [Catalytic activity/Vol] 14 U/L Normal 14-36 [facility] Comment on above: Performed By: #### D CHRISTOPHER UAMIC #### [facility] [address] [place], [place] [address] Mikal Roselyn SGPTon 09-05-2019 ALT [Catalytic activity/Vol] 26 U/L Normal 9-52 [facility] Comment on above: Performed By: #### C BC #### [facility] [address] [place] [address] Mikalrena Hensleyen TSHon 09-05-2019 TSH Qn 0.807 uIU/mL Normal 0.470-4.680 [facility] Comment on above: Performed By: #### C BC #### [facility] [address] [place] [address] Mikal Roselyn TSH Qn SEE BELOW Normal [facility] Comment on above: Result Comment: <0.3 4 UIU/ml HYPERTHYROID 0.34-5.60 UIU/ml EUTHYROID >5.60 UIU/ml HYPOTHYROID Performed By: #### C BC #### [facility] [address] [place], [place] [address] Mikal Roselyn URIC ACID SERUMon 09-05-2019 Urate [Mass/Vol] 3.5 mg/dL Normal 2.5-6.2 [facility] Comment on above: Performed By: #### C BC #### [facility] [address] [place] [address] Mikal Dempsey HEP B SURFACE ANTIGEN SCREEN on 09-01-2019 HBsAg Screen Negative Normal Negative [facility] Comment on above: Performed By: #### H BSANS #### [facility] [address] [place] [address] Mikal Dempsey HEPATITIIS C VIRUS ANTIBODYo n 09-01-2019 Hep C Virus Ab <0.1 Normal 0.0-0.9 [facility] Comment on above: Result Comment: Nega tive: < 0.8 Indeterminate: 0.8 - 0.9 Positive: > 0.9 . The CDC recommends that a positive HCV antibody result be followed up with a HCV Nucleic Acid Amplification test (798385). Performed By: #### Greg CV #### [facility] [address] [place] [address] Mikal Dempsey HGB(ELECTP) FRACTION PROFILE on 09-01-2019 Hemoglobin (Bld) [Mass/Vol] 97.5 % Normal 96.4-98.8 [facility] Comment on above: Performed By: #### D CHRISTOPHER UAMIC #### [facility] [address] [place] [address] Mikal Dempsey Hgb A2 2.5 % Normal 1.8-3.2 [facility] Comment on above: Performed By: #### D CHRISTOPHER UAMIC #### [facility] [address] [place] [address] Mikal Roselyn Hgb C 0.0 % Normal 0.0 [facility] Comment on above: Performed By: #### D MARLEN WHITEMIC #### [facility] [address] [place] [address] Mikal Roselyn Hgb F 0.0 % Normal 0.0-2.0 [facility] Comment on above: Performed By: #### D MARLEN WHITEMIC #### [facility] [address] [place] [address] Mikal Dempsey Hgb S 0.0 % Normal 0.0 [facility] Comment on above: Performed By: #### D CHRISTOPHER UAMIC #### [facility] [address] [place] [address] Mikal Dempsey Hgb Solubility Negative Normal Negative [facility] Comment on above: Performed By: #### D CHRISTOPHER UAMIC #### [facility] [address] [place] [address] Mikal Dempsey Hgb Variant Normal [facility] Comment on above: Performed By: #### D CHRISTOPHER UAMIC #### [facility] [address] [place] [address] Mikal Dempsey Interpretation Comment Normal [facility] Comment on above: Result Comment: Norm al adult hemoglobin present. Performed By: #### D CHRISTOPHER UAMIC #### [facility] [address] [place] [address] Mikal Dempsey HIV 1 AND 2 WITH REFLEXon HIV Screen 4th Generation wRfx Non Reactive Normal Non Reactive [facility] Comment on above: Performed By: #### H IV12 #### [facility] [address] [place] [address] Mikla Dempsey RPR QUANTon 09-01-2019 Rapid Plasma Reagin, Quant Non Reactive Normal NonRea<1:1 [facility] Comment on above: Performed By: #### D CHRISTOPHER UAMIC #### [facility] [address] [place] [address] Mikal Dempsey RUBELLA AB IGGon 09-01-2019 Rubella Antibodies, IgG 1.49 index Normal Immune >0.99 [facility] Comment on above: Result Comment: Non- immune <0.90 Equivocal 0.90 - 0.99 Immune >0.99 Performed By: #### D CHRISTOPHER UAMIC #### [facility] [address] [place] [address] Mikal Dempsey VARICELLA IGG ABon 0 Varicella Zoster IgG <135 Critically low Immune >165 [facility] Comment on above: Result Comment: Nega tive <135 Equivocal 135 - 165 Positive >165 A positive result generally indicates exposure to the pathogen or administration of specific immunoglobulins, but it is not indication of active infection or stage of disease. Performed By: #### D RUGRPD, UAMIC #### [facility] [address] [place], [place] [id number] Mikal Roselyn TYPE AND SCREENon 08-31-2019 TYPE AND SCREEN Negative Normal [facility] Comment on above: Performed By: #### T NS #### [facility] [address] [place], [place] [id number] Mikal Roselyn CBC AUTO DIFFon 08-30-2019 Basophils (Bld) [#/Vol] 0.1 103/ul Normal 0.0-0.1 [facility] Comment on above: Performed By: #### C BC #### [facility] [address] [place], [place] [address] Mikal Roselyn Basophils/100 WBC (Bld) 0.7 % Normal 0.2-2.0 [facility] Comment on above: Performed By: #### C BC #### [facility] [address] [place], [place] [address] Mikal Roselyn Eosinophils (Bld) [#/Vol] 0.0 103/ul Normal 0.0-0.7 [facility] Comment on above: Performed By: #### C BC #### [facility] [address] [place], [place] [address] Mikal Roselyn Eosinophils/100 WBC (Bld) 0.3 % Critically low 0.9-7.0 [facility] Comment on above: Performed By: #### C BC #### [facility] [address] [place], [place] [address] Mikal Roselyn Erythrocyte distribution width (RBC) [Ratio] 13.2 % Normal 11.0-15.0 [facility] Comment on above: Performed By: #### C BC #### [facility] [address] [place], [place] [address] Mikal Roselyn Hematocrit (Bld) [Volume fraction] 43.0 % Normal 36.0-48.0 [facility] Comment on above: Performed By: #### C BC #### [facility] [address] [id number] Mikal Roselyn Hemoglobin (Bld) [Mass/Vol] 14.1 g/dL Normal 12.0-16.0 [facility] Comment on above: Performed By: #### C BC #### [facility] [address] [place], [place] [address] Mikal Roselyn IG # 0.02 10e3/ul Normal 0.00-0.03 [facility] Comment on above: Performed By: #### C BC #### [facility] [address] [place] [address] Mikal Roselyn IG % 0.3 % Normal 0.0-0.5 [facility] Comment on above: Performed By: #### C BC #### [facility] [address] [place] [address] Mikal Roselyn Lymphocytes (Bld) [#/Vol] 1.7 103/ul Normal 1.2-3.8 [facility] Comment on above: Performed By: #### C BC #### [facility] [address] [place], [place] [address] Mikal Roselyn Lymphocytes/100 WBC (Bld) 23.4 % Normal 20.5-60.0 [facility] Comment on above: Performed By: #### C BC #### [facility] [address] [place], [place] [address] Mikal Roselyn MANUAL DIFF REQ NO Normal [facility] Comment on above: Performed By: #### C BC #### [facility] [address] [place], [place] [address] Mikal Roselyn MCH (RBC) [Entitic mass] 29.3 pg Normal 26.7-34.0 [facility] Comment on above: Performed By: #### C BC #### [facility] [address] [place], [place] [address] Mikal Roselyn MCHC (RBC) [Mass/Vol] 32.8 g/dL Normal 29.9-35.2 [facility] Comment on above: Performed By: #### C BC #### [facility] [address] [place], [place] [address] Mikal Roselyn MCV (RBC) [Entitic vol] 89.4 fL Normal 81.0-99.0 [facility] Comment on above: Performed By: #### C BC #### [facility] [address] [place], [place] [address] Mikal Roselyn Monocytes (Bld) [#/Vol] 0.6 103/ul Normal 0.3-0.8 [facility] Comment on above: Performed By: #### C BC #### [facility] [address] [place], [place] [address] Mikal Roselyn Monocytes/100 WBC (Bld) 8.6 % Normal 1.7-12.0 [facility] Comment on above: Performed By: #### C BC #### [facility] [address] [place] [address] Mikal Roselyn Neutrophils (Bld) [#/Vol] 4.9 103/ul Normal 1.4-6.5 [facility] Comment on above: Performed By: #### C BC #### [facility] [address] [place] [address] Mikal Roselyn Neutrophils/100 WBC (Bld) 66.7 % Normal 43.0-75.0 [facility] Comment on above: Performed By: #### C BC #### [facility] [address] [place] [address] Mikal Roselyn Platelet mean volume (Bld) [Entitic vol] 9.7 fL Normal 9.5-13.5 [facility] Comment on above: Performed By: #### C BC #### [facility] [address] [place] [address] Mikal Roselyn Platelets (Bld) [#/Vol] 304 103/ul Normal 150-450 [facility] Comment on above: Performed By: #### C BC #### [facility] [address] [place] [address] Mikal Roselyn RBC (Bld) [#/Vol] 4.81 106/ul Normal 4.20-5.40 [facility] Comment on above: Performed By: #### C BC #### [facility] [address] [place] [address] Mikal Dempsey WBC (Bld) [#/Vol] 7.4 103/ul Normal 4.0-11.0 [facility] Comment on above: Performed By: #### C BC #### [facility] [address] [place] [address] Mikalrena Dempsey CULTURE URINEon 08-30-2019 CULTURE URINE Culture Observations : Light growth of mixed genital sierra.No potential pathogens seen. Normal [facility] Comment on above: Performed By: #### U RCX #### [facility] [address] [place] [address] Mikal Dempsey DRUG SCREEN RAPID (URINE)on 08-30-2019 AMP Negative Normal NEGATIVE [facility] Comment on above: Performed By: #### D CHRISTOPHER, UAMIC #### [facility] [address] [place] [address] Mikal Roselyn BAR Negative Normal NEGATIVE [facility] Comment on above: Performed By: #### D MARYBETHD, UAMIC #### [facility] [address] [place] [address] Mikal Roselyn BUP Negative Normal NEGATIVE [facility] Comment on above: Performed By: #### D MARYBETHD, UAMIC #### [facility] [address] [place] [address] Mikal Roselyn BZO Negative Normal NEGATIVE [facility] Comment on above: Performed By: #### D CHRISTOPHER, UAMIC #### [facility] [address] [place] [address] Mikal Roselyn MADDY Positive Normal NEGATIVE [facility] Comment on above: Performed By: #### D CHRISTOPHER, UAMIC #### [facility] [address] [place] [address] Mikal Roselyn CUT-OFFS SEE BELOW Normal [facility] Comment on above: Result Comment: AMP [...] (Trycyclic Antidepressants): 300 ng/mL Performed By: #### Agustin WHITE UAMIC #### [facility] [address] [place] [address] [facility] TEST SYST EM CUT-OFF CONCENTRATIONS ARE FOLLOWS: Normal [facility] Comment on above: Performed By: #### D CHRISTOPHER UAMIC #### [facility] [address] [place] [address] Mikal Roselyn mAMP Negative Normal NEGATIVE [facility] Comment on above: Performed By: #### Agustin WHITE UAMIC #### [facility] [address] [place] [address] Mikal Roselyn MTD Negative Normal NEGATIVE [facility] Comment on above: Performed By: #### Agustin WHITE UAMIC #### [facility] [address] [place] [address] Mikal Roselyn OPI Negative Normal NEGATIVE [facility] Comment on above: Performed By: #### D CHRISTOPHER UAMIC #### [facility] [address] [place] [address] Mikal Roselyn OXY Negative Normal NEGATIVE [facility] Comment on above: Performed By: #### D CHRISTOPHER UAMIC #### [facility] [address] [place] [address] Mikal Roselyn PCP Negative Normal NEGATIVE [facility] Comment on above: Performed By: #### Agustin WHITE UAMIC #### [facility] [address] [place] [address] Mikal Roselyn PPX Negative Normal NEGATIVE [facility] Comment on above: Performed By: #### Agustin WHITE UAMIC #### [facility] [address] [address] Mikal Dempsey TCA Negative Normal NEGATIVE [facility] Comment on above: Performed By: #### D CHRISTOPHER UAMIC #### [facility] [address] [place] [address] Mikal Dempsey THC Negative Normal NEGATIVE [facility] Comment on above: Performed By: #### D CHRISTOPHER UAMIC #### [facility] [address] [address] Mikal Hensleyen GLYCOHEMOGLOBIN A1Con 2019 Glucose [Mass/Vol] 85 mg/dL Normal [facility] Comment on above: Performed By: #### A 1C #### [facility] [address] [place] [address] Mikal Dempsey HbA1c (Bld) [Mass fraction] 4.6 % Normal <=6.0 [facility] Comment on above: Performed By: #### A 1C #### [facility] [address] [place] [address] Mikal Dempsey PREG QUANT HCGon 08-30-2019 HCG QUANT 65874.00 mIU/mL Normal [facility] Comment on above: Performed By: #### P REGQNT #### [facility] [address] [place] [address] Mikal Dempsey HCG RANGE SEE BELOW Normal [facility] Comment on above: Result Comment: 5-50 0-1 WEEK 40-300 1-2 WEEKS 100-1,000 2-3 WEEKS 500-6,000 3-4 WEEKS 5,000-200,000 1-2 MONTHS 10,000-100,000 2-3 MONTHS 3,000-50,000 2ND TRIMESTER 1,000-50,000 3RD TRIMESTER Performed By: #### P REGQNT #### [facility] [address] [place] [address] Mikal Dempsey UA RANDOM W/MICROSCOPICon Bacteria LM.HPF (Urine sed) [#/Area] SMALL Normal NONE SEEN [facility] Comment on above: Performed By: #### D CHRISTOPHER UAMIC #### [facility] [address] [place] [address] Mikal Roselyn Bilirubin [Mass/Vol] Negative Normal NEGATIVE [facility] Comment on above: Performed By: #### D CHRISTOPHER UAMIC #### [facility] [address] [place] [address] Mikal Roselyn BLOOD Negative Normal NEGATIVE [facility] Comment on above: Performed By: #### D CHRISTOPHER, UAMIC #### [facility] [address] [place] [address] Mikal Roselyn CAST NONE SEEN Normal NONE SEEN [facility] Comment on above: Performed By: #### D CHRISTOPHER UAMIC #### [facility] [address] [place] [address] Mikal Roselyn Clarity (U) CLEAR Normal [facility] Comment on above: Performed By: #### D CHRISTOPHER UAMIC #### [facility] [address] [place] [address] Mikal Roselyn Color (U) YELLOW Normal YELLOW [facility] Comment on above: Performed By: #### D CHRISTOPHER UAMIC #### [facility] [address] [place] [address] Mikal Roselyn Crystals LM Nom (Urine sed) NONE SEEN Normal NONE SEEN [facility] Comment on above: Performed By: #### D CHRISTOPHER UAMIC #### [facility] [address] [place] [address] Mikal Roselyn Epithelial cells LM.HPF (Urine sed) [#/Area] FEW Normal [facility] Comment on above: Performed By: #### D CHRISTOPHER UAMIC #### [facility] [address] [place] [address] Mikal Roselyn Glucose [Mass/Vol] Negative Normal NEGATIVE [facility] Comment on above: Performed By: #### D CHRISTOPHER UAMIC #### [facility] [address] [place] [address] Mikal Roselyn Ketones Ql (U) Negative Normal NEGATIVE [facility] Comment on above: Performed By: #### D CHRISTOPHER UAMIC #### [facility] [address] [place] [address] Mikal Roselyn MUCOUS MODERATE Normal NONE SEEN [facility] Comment on above: Performed By: #### D CHRISTOPHER, UAMIC #### [facility] [address] [place], [place] [address] Mikal Roselyn Nitrite Ql (U) Negative Normal NEGATIVE [facility] Comment on above: Performed By: #### D MARYBETHD, UAMIC #### [facility] [address] [id number] Mikal Roselyn pH (Bld) 6.0 Normal 5-9 [facility] Comment on above: Performed By: #### D CHRISTOPHER, UAMIC #### [facility] [address] [place], [place] [address] Mikal Roselyn Protein [Mass/Vol] Negative Normal [facility] Comment on above: Performed By: #### D CHRISTOPHER, UAMIC #### [facility] [address] [place], [place] [address] Mikal Roselyn RBC (Bld) [#/Vol] 0-2 Normal 0-2 [facility] Comment on above: Performed By: #### D CHRISTOPHER, UAMIC #### [facility] [address] [place], [place] [address] Mikal Roselyn SPEC GRAVITY 1.025 Normal 1.005-<=1.025 [facility] Comment on above: Performed By: #### D CHRISTOPHER, UAMIC #### [facility] [address] [place], [place] [address] Mikal Roselyn Urobilinogen Qn (U) 0.2 EU/dl Normal [facility] Comment on above: Performed By: #### D CHRISTOPHER, UAMIC #### [facility] [address] [place], [place] [address] Mikal Roselyn WBC (Bld) [#/Vol] Negative Normal NEGATIVE [facility] Comment on above: Performed By: #### D CHRISTOPHER, UAMIC #### [facility] [address] [place], [place] [address] Mikal Roselyn WBC (Bld) [#/Vol] 2-5 Normal NONE SEEN [facility] Comment on above: Performed By: #### D CHRISTOPHER, UAMIC #### [facility] [address] [address] Mikal Dempsey Encounters Encounter Date Encounter Type Care Provider Facility Start: 07-09-2023 End: 07-09-2023 [facility] Start: 07-02-2023 End: 07-02-2023 ambulatory ALEXANDER CONLEY Not Available Start: 06-23-2023 End: 06-23-2023 Emergency department patient visit [facility] Facility:[facility] Start: 05-28-2023 End: 05-28-2023 ambulatory JOSE MARTEL Not Available Start: 03-21-2023 End: 03-21-2023 Emergency department patient visit Armando Alessandra Nieto Facility:[facility] Start: 04-17-2020 Patient encounter procedure SHAHNAZ [...] [place] Payers Date Payer Category Payer Medicaid [id number] 1997 Unknown [id number] 2.16.84 [id number] 1997 Unknown [id number] 2.16.84 0.1.511396.3.579.2.593 1997 Unknown [id number] 2.16.84 0.1.735255.3.579.2.593 1997 Unknown [id number] 2.16.84 0.1.720857.3.579.2.593 1997 Unknown [id number] 2.16.84 0.1.615934.3.579.2.593 1997 Unknown [id number] 2.16.84 0.1.042477.3.579.2.593 1997 Unknown [id number] 2.16.84 0.1.679815.3.579.2.593 1997 Unknown [id number] 2.16.84 0.1.117909.3.579.2.593 1997 Unknown [id number] 2.16.84 0.1.413579.3.579.2.593 1997 Unknown [id number] 2.16.84 0.1.914175.3.579.2.593 1997 Unknown [id number] 2.16.84 0.1.906378.3.579.2.593 1997 Unknown [id number] 2.16.84 0.1.312330.3.579.2.593 1997 Unknown [id number] 2.16.84 0.1.551650.3.579.2.593 1997 Unknown [id number] 2.16.84 0.1.130397.3.579.2.593 1997 Unknown [id number] 2.16.84 0.1.767874.3.579.2.593 1997 Unknown [id number] 2.16.84 0.1.982200.3.579.2.593 1997 Unknown [id number] 2.16.84 0.1.157870.3.579.2.593 1997 Unknown [id number] 2.16.840 .1.938663.3.579.2.1259 1997 Unknown [id number] 2.16.840 .1.413010.3.579.2.1259 1997 Unknown [id number] 2.16.8 40.1.655411.3.579.2.718 1997 Unknown [id number] 2.16.8 40.1.703436.3.579.2.718 1997 Unknown [id number] 2.16.8 40.1.377376.3.579.2.718 1959 Self-pay [id number] 1959 Unknown [id number] Clinical Note 07-09-2023 Note Date & Type Note Facility 07-09-2023 Note Education Materials Infectious Disease Upper Respiratory Infection, Adult An upper respiratory infection (URI) is a common viral infection of the nose, throat, and upper air passages that lead to the lungs. The most common type of URI is the common cold. URIs usually get better on their own, without medical treatment. What are the causes? A URI is caused by a virus. You may catch a virus by: ? Breathing in droplets from an infected person's cough or sneeze. ? Touching something that has been exposed to the virus (is contaminated) and then touching your mouth, nose, or eyes. What increases the risk? You are more likely to get a URI if: ? You are very young or very old. ? You have close contact with others, such as at work, school, or a health care facility. ? You smoke. ? You have long-term (chronic) heart or lung disease. ? You have a weakened disease-fighting system (immune system). ? You have nasal allergies or asthma. ? You are experiencing a lot of stress. ? You have poor nutrition. What are the signs or symptoms? A URI usually involves some of the following symptoms: ? Runny or stuffy (congested) nose. ? Cough. ? Sneezing. ? Sore throat. ? Headache. ? Fatigue. ? Fever. ? Loss of appetite. ? Pain in your forehead, behind your eyes, and over your cheekbones (sinus pain). ? Muscle aches. ? Redness or irritation of the eyes. ? Pressure in the ears or face. How is this diagnosed? This condition may be diagnosed based on your medical history and symptoms, and a physical exam. Your health care provider may use a swab to take a mucus sample from your nose (nasal swab). This sample can be tested to determine what virus is causing the illness. How is this treated? URIs usually get better on their own within 7?10 days. Medicines cannot cure URIs, but your health care provider may recommend certain medicines to help relieve symptoms, such as: ? Ulwo-htv-ienvzxj cold medicines. ? Cough suppressants. Coughing is a type of defense against infection that helps to clear the respiratory system, so take these medicines only as recommended by your health care provider. ? Fever-reducing medicines. Follow these instructions at home: Activity ? Rest as needed. ? If you have a fever, stay home from work or school until your fever is gone or until your health care provider says your URI cannot spread to other people (is no longer contagious). Your health care provider may have you wear a face mask to prevent your infection from spreading. Relieving symptoms ? Gargle with a mixture of salt and water 3?4 times a day or as needed. To make salt water, completely dissolve ??1 tsp (3?6 g) of salt in 1 cup (237 mL) of warm water. ? Use a cool-mist humidifier to add moisture to the air. This can help you breathe more easily. Eating and drinking ? Drink enough fluid to keep your urine pale yellow. ? Eat soups and other clear broths. General instructions ? Take rmvo-hfm-fssemkp and prescription medicines only as told by your health care provider. These include cold medicines, fever reducers, and cough suppressants. ? Do not use any products that contain nicotine or tobacco. These products include cigarettes, chewing tobacco, and vaping devices, such as e-cigarettes. If you need help quitting, ask your health care provider. ? Stay away from secondhand smoke. ? Stay up to date on all immunizations, including the yearly (annual) flu vaccine. ? Keep all follow-up visits. This is important. How to prevent the spread of infection to others URIs can be contagious. To prevent the infection from spreading: ? Wash your hands with soap and water for at least 20 seconds. If soap and water are not available, use hand denial management representative. ? Avoid touching your mouth, face, eyes, or nose. ? Cough or sneeze into a tissue or your sleeve or elbow instead of into your hand or into the air. Contact a health care provider if: ? You are getting worse instead of better. ? You have a fever or chills. ? Your mucus is brown or red. ? You have yellow or brown discharge coming from your nose. ? You have pain in your face, especially when you bend forward. ? You have swollen neck glands. ? You have pain while swallowing. ? You have white areas in the back of your throat. Get help right away if: ? You have shortness of breath that gets worse. ? You have severe or persistent: ? Headache. ? Ear pain. ? Sinus pain. ? Chest pain. ? You have chronic lung disease along with any of the following: ? Making high-pitched whistling sounds when you breathe, most often when you breathe out (wheezing). ? Prolonged cough (more than 14 days). ? Coughing up blood. ? A change in your usual mucus. ? You have a stiff neck. ? You have changes in your: ? Vision. ? Hearing. ? Thinking. ? Mood. These symptoms may be (more content not included)... [facility] Clinical Note 06-23-2023 Note Date & Type [...] ? Medicines that treat allergies (antihistamines). ? Umye-bvt-tggujju pain relievers. ? If caused by bacteria, [...] home: Medicines ? Take, use, or apply aalk-hiv-qgfwiud and prescription medicines only as told by [...] and water are not available, use hand denial management representative. ? Do not smoke. Avoid being around people who are smoking (secondhand smoke). ? Keep all follow-up visits. This is important. Contact a health care provider if: ? You have a fever. (more content not included)... [facility] Clinical Note 03-21-2023 Note Date & [...] ? Low-calorie sports drinks. ? Eat bland, kgts-ft-adthaf foods in small amounts as you are able, such as: ? Bananas. ? Applesauce. ? Rice. ? Low-fat (lean) meats. ? [place]. ? Crackers. ? Avoid drinking fluids that have a lot of sugar or caffeine in them. This includes energy drinks, sports drinks, and soda. ? Avoid alcohol. ? Avoid spicy or fatty foods. General instructions ? Take wjcm-evr-[id number] and prescription medicines only as told by your doctor. ? Drink enough fluid to keep your pee (urine) pale yellow. ? Wash your hands often with soap and water for at least 20 seconds. If you cannot use soap and water, use hand denial management representative. ? Make sure that everyone in your [...] doctor about eating and drinking. ? Take ekcn-bqs-fljspby and prescription medicines only as told by your doctor. ? Contact your doctor if your symptoms get worse or you have new symptoms. ? Keep all follow-up visits. This information is not intended to replace advice given to you by your health care provider. Make sure you discuss any questions you have with your health care provider. Document Revised: 01/03/2022 Document Reviewed: 01/03/2022 [employer] Patient Education ? 2022 [employer]. Obstetrics and Gynecology Warning Signs During During [...] back. ? Shortne (more content not included)... [facility] Summary Purpose Family History No Family History Records FoundNo Family History Records FoundNo Family History Records Found Advance Directives No Advanced Directives Records FoundNo Advanced Directives Records FoundNo Advanced Directives Records Found Additional Source Comments INFORMATION SOURCE (unrecogn ized section and content) DATE CREATED AUTHOR 04/19/2020 [facility] DATE CREATED AUTHOR AUTHOR'S ORGANIZ ATION 07/03/[address] [facility] EPIC DATE CREATED AUTHOR AUTHOR'S ORGANIZ ATION 07/11/[address] [facility] FOR RECORDS PERTAINING TO PATIENTS WHO ARE [...] BE BASED ON THE PRIMARY CLINICAL RECORDS. [employer] [facility]. provides no warranty or guarantee of the accuracy or completeness of information in this document.
[2023-07-23 12:09] LABS: Basophils Percent Auto 0.5 % (0.2-2.0); Eosinophils Absolute Auto 0.1 10^3/uL (0.0-0.7); Eosinophils Percent Auto 0.9 % (0.9-7.0); Hemoglobin 11.1 g/dL (12.0-16.0); Immature Granulocytes Abs Auto 0.04 10^3/uL (0.00-0.03); Immature Granulocytes Pct Auto 0.5 % (0.0-0.5); Lymphocytes Absolute Auto 1.5 10^3/uL (1.2-3.8); Lymphocytes Percent Auto 18.5 % (20.5-60.0); Mean Corpuscular HGB Conc 33.6 g/dL (29.9-35.2); Mean Corpuscular Hemoglobin 29.9 pg (26.7-34.0); Mean Corpuscular Volume 88.9 fL (81.0-99.0); Mean Platelet Volume 8.9 fL (9.5-13.5); Monocytes Absolute Auto 0.9 10^3/uL (0.3-0.8); Monocytes Percent Auto 10.6 % (1.7-12.0); Neutrophils Absolute Auto 5.6 10^3/uL (1.4-6.5); Platelet Count 267 10^3/uL (150-450); Red Blood Count 3.71 10^6/uL (4.20-5.40); Red Cell Distribution Width 12.4 % (11.0-15.0); White Blood Count 8.2 10^3/uL (4.0-11.0)
[2023-07-23 12:59] LABS: Glucose 1 Hour 63 mg/dL
[2023-07-27 17:10] LABS: AFP Value 154.1 ng/mL (.); Gest. Age on Collection Date 16.7 weeks (.); Insulin Dep Diabetes No (.); Maternal Age At EDD 26.3 yr (.); OSBR Risk 1 IN 26 (.); Results Report (.)
== END 2023-07-23 10:48 | disposition home or self-care (01) ==
LOC: LAB 10:49
PROVIDERS: Visit Provider Obstetrics & Gynecology
DX: Z34.92 Encounter for supervision of normal pregnancy, unspecified, second trimester (principal)
CPT/HCPCS: 36415; 82105; 82950; 85025; 86850; 86900; 86901

== ENCOUNTER 2023-07-30 09:48 | Outpatient (OUT) | payer MEDICAID, SELFPAY ==
--- NOTE | 2023-07-30 09:51 | US_ITS ---
[address] [address] Patient Name: BETTY RAMIREZ MRN: [id number] date: 1995 Sex: F Assigned Patient Location: US Current Patient Location: US Accession/Order Number: [id number] Exam Date: 07/30/2023 10:00 Report Date: 07/30/2023 10:28 At the request of: ALEXANDER CONLEY Procedure: US OB incomplete anatomy EXAM: US OB incomplete anatomy HISTORY: follow uo ultrasound of anatomy Z36.2 COMPARISON: 07/02/2023 TECHNIQUE: Transabdominal FINDINGS: position: Cephalic Heart rate: 55 beats minute Normal anatomy: Four-chamber heart, RVOT, LVOT Clinical age: 25 weeks 5 days Clinical PETER: 11/07/2023 US/US OB incomplete anatomy IMPRESSION: Normal observed anatomy Electronically authenticated by: VANCE DING Date: 07/30/2023 10:28
--- OUTSIDE RECORDS SUMMARY | 2023-07-30 09:53 | XMS_ITS | CCD ---
Author Name Unknown Address [address] [facility] [address] [place] [address] [facility] Care Team Providers Care Department Head Name Role Phone SHAHNAZ CORONA Admitting Unavailable [...] CORONA Consulting Unavailable SHAHNAZ CORONA Admitting Unavailable SHAHANZ CORONA Attending Unavailable REQUEST, NONE LISTED Primary [...] SHAHNAZ Admitting Unavailable SHAHNAZ CORONA Attending Unavailable HCLOE, SHAHNAZ Admitting Unavailable CHLOE, SHAHNAZ Attending Unavailable CHLOE, SHAHNAZ Consulting Unavailable DELONTE, JOSE Attending Unavailable YAEL, ALEXANDER Attending Unavailable Kashk, Baldo I Attending Unavailable Blunt, Caden M Primary Care Unavailable Kashdavid, Baldo I Admitting Unavailable Blunt, Caden M Primary Care Unavailable Armando Nieto Admitting Unavailable Armando Nieto Attending Unavailable Blunt, Caden M Primary Care Unavailable Doss, Devne Jacob Admitting Unavailab le Doss, Deven Jacob Attending Unavailab le Allergies Allergy Classification Reported Allergen(s) Allergy Type Date of Onset Reaction(s) Facility (1 source) No Known Medication Allergies; Translations: [No Known Medication Allergies] Propensity to adverse reactions to drug (disorder) [facility] Repository Problems Active Problems Problem Classification Problem [...] Value Interpretation Reference Range Facility Coding Summaryon 07-22-2023 Coding Summary HTMLBase 64 McilgcjyAVw8pZi+PGhlYW Q+HQ2RXGBmE19yhHIfqX2f K7QYBBgDGnrzDAEUZYvUIk PcqvKvBH0yqPPsFBNo IC8+IY4hJPHpOnvefHOdc0 G9nQG9I26bqw2hOIpnhUX3 HBZzNkRcvtkuw0xivPt1UU cuNmluOyBt ZZJifH11HQA0wN52Rx33yW CoxLCuv5yihPk0TcOaVWYg WUX5iHmrOBwgi2DnNIAoP7 6yoBLol1Z0 SWWhkVbgwNZaPgOumLF8eV 9qVGjaznogb2iaayyjAck9 pt79nNApj6T8zHR6B7Tluk I0MQGsmVEi DcrpdNOUtX2yfxjsc6ohai yaSfDiSTElFWc2QNi8YMXz wAdlEiUkFW95SUE4ANZdaj OkD4DaQLLt aXdgBuC0h6L4Zk1LJ5VOAt ymE6KXLGSPRKkemRP+PC90 ww57K8ZfFaarMyl5YGAmFF V9gPD2uB5p GVAeRCurn8G6wGZ4K9Kgjg Dsnl2gs7ijORJhVCdfR24b aDRev7K4YCSflTN1BORnnD tpNnRczH49 Oyc+DHMxaVsrf2ZiZrxbo0 bmf7jhfSt9DagsWWTzlfOh sRkwEZX8k7KcDz0mCCDffD A0qLS8zX4s YaEpYsB6ZBvjJ422AcVewB KgCnidN31mU6CqwDE+PHRy Jeq1REUqqDvxCQ5sZ7ThTF RpbmctbGVm qHobCV1dTVKzkterASWztG 7xLQKpU1l1SmCaGlF1ZTbt U0VvYUQudpkqHe45qV6wXp NbAxN1YUqx C6EpzxK2VBQdnBZhTFblZL H5S04sv8R0WGEyHTFwSLG0 cIS4fH9wsDppmffliBPehZ sgdmVydGlj QMjaMFsaR851AGQpgMgtIp NvZGluZyBEYXRlOiAgMDEv MTAvMjAyNDwvdGQ+PHRkIH Z1qHsqKASw rTFzONofLu1fiDzazPbsZN 5nSDZkmygrQXSuaB9iMKAa mCJhyIclGD4wYZRbydagw6 26HcClCRP4 RUBufYEiH4SpsC1dYrUiRJ MxPQXjC3YxhEWzNBatB147 SIkoYaN2CKQqetVsA9ErEW FsaWduOiB0 x4I3Pt9Ud5DrpnwvZ1OjpS OxLwOzEvkoKUt8G8GiCwzy dHI+HG42IHJoTX90YJl5OF M7eCsuUXdr LTItD4UfsL4gKzVeYRUjYC RkOyc+PHRhYmxlIHdpZHRo WBiaVLTyGvRdxAuyPC0cLk 9yZGVyLWNv rXfklXTzVdTda4beSHLjJG smIQ4ucTxwN5RnlXO3ZXWi u8k1Pk79M35lJ0PmdZV+PG PlnUY9eYH7 uR1hLrZvLeA1QFkrI546Qv DfzKWjDpnak8uqm6sleOt8 SmK8ZYRyeeAfbWrmMDO6f9 JfRm07Z94v IHdpZHRoPSIxNSUiIHZhbG gpie1pgN7vNl0+PGNvbCB3 zXP9bL9sQcEaVqS3SJbvI8 49InRvcCIv Wzeql6kvr4npcDw3UuMgRW PqftAkpCzqFCV4v3DpYf49 D3FusNtev6VpWsr8uq31tV Ewu1G8nAT6 M7TmYMVbcqzzxDEswJnoUW 8uXJClhjbyOFRodN5eXXBb V8c5BiYhRfZ5AZaxP5Rzra U5JGAegNRo CIBqmGIRsL6ykruuc2bkep nuTfUeZOQoXJn9XAm7XTXm lDwzLhLrXFI9IxN1WZL7xJ FhoH1zaQjl moapmR4rLdd+UKU8mFWkfU GPLK4zGsrdtTW+PHRkIHN0 wZicXScmTRSnuM7vPDGaY0 i9OmAzEyD8 KOlvV4CwssT3GJLpvGRfUU JmrXACvD4gvmdyk0ebxvik EtTmJIMcFNb6DAq4YLSyhO duOiBsZWZ0 XuM0BGP6iEOglH4xiJfrqt jocN0pWfs+QmlydGggRGF0 VWt8A7SlUvh0XJEylXkmYO 0ncGFkZGlu Ah8ijRwryAroHI6eNBOrrt djd959NkHlo5ezBRIkqWQe NKanYSI0Z05ut8Z6RJOpWR ShEQV1qCQ6 gQ1unAwbqblprSMwwQuind XmwYbwXLdtIEihM867CHVu kYzoZbHlBTd2L3IzQwp3LT LdqRjoNF1n pYPoHSayIy9epTdkcZswDB 6lYMDdjtcxz231NyHmp5iv ZHXbfTHzDMxpBUX8X12ct3 S7MVOqZOIk VLI0pGG0fS3smPjnrtcsgZ VmdDsgdmVydGljYWwtYWxp F591GOBfqWsxOdWrwWw3N8 JwQhx7DBWa wXyxSW5oeTGrIPdrLq6ywD axlTwuOO9sRGGpetlkp141 NiLnw4blBHPhbTYpEVloBI N9S76yz1O0 FCFuAZEuLDT2jWO5iL4aqT lnbjogbGVmdDsgdmVydGlj HQuxIMfuM993EIExgDruWs BhdGllbnQg YNjqMZu1H3NzBgxdeAC+PC 73QAWwBA70fYIxeOCdb5er oWd0XaCgSKSsAZR1pZbsCG mpp4SmOWHh K44ksAOsq5K0LLQklFalyB GrSzLcyUZ4aB7pFDxnzjqz b0gegqhlQgski5fdve63uC 30G24xHRpq ZHRoPSIzMCUiIHZhbGlnbj 1cyQ3uFy6+HEFaoWW4qAD9 pH9oBHYiSaF8FLdrU499Jx RvcCIvPjxj m7dlt0zgdPg0HqF0BDLpub TlrCpjRNP5n6ScLp14E53c IHdpZHRoPSIyMCUiIHZhbG mczr2yiP4f Ii8+WBZwaCL4xDY2yA0aDp JsCyZ9QTdtX739LvTpqZBk ZqaiT67nU7CbfVW+PHRyPj e9QCAluQmy IN5nmNVoWTyzSb1oTZP3Hv QmQaKcMJahE2PtMZZeoiup didocYU6SBUlITVlfG10Yb 9udDogMTBw jCNQzH5kxcfjv5amwtumZf SwYXPpDWi3KWn7QCSkbCxg HnAdRKC4KpI4PEX6uUJdxP 1hbGlnbjog mU3aI4ScMZZcjgzvKw64yG 4dQnUiWrT2KDmrQwt+V0FH UcXNRRTQPTBUZW5TOQHOKp wvdGQ+PHRk KUX1mGwoRRhtPXKgtY5hMP NgO0i8LpQbLdD7VMjbY0Er XZCgfwvsZj01cI2pOxQqUe T1OAdbA3Ev qpS4LBPjhMXyTQvwJYX6E6 1ed1V3ANWrNXAyHGY8aQE4 jR7kpCcnizbhrNEesBninn VydGljYWwt MCgjX204FJFxlHlmOmUyQl V2ShJ9PVw4R5SxGdx6YLDd cQrbPA0voOTuDMhbWb0ibW mdhIuiQO9w SFXktsusYFUegG9oIXCidC GjvXkwYO5fBIVpdjhyk299 RzNoAQT1ERRgfTZtD0CrwP 9yOiAjMDAw ZYKkN0VaxNDtBVuzJ148NX egEoF4KGQcwmSmK4MfVGUp iBgcEzV0x2M5Oc5cJJYOXQ FyczwvdGQ+ JSTiKBL1fFfaTUvtBEFjfF 8dTJZhO2r3DpZmKqZ3RLtr W8WcCJArddkqFc60iF7nLx NgOhR3RNuf I6WojlK0WOCobPIrGPuxSS W9Z57zm9D8NJTiWESoQQQ9 xXQ1mM6xbZhqcxwjwELwwG sgdmVydGlj POdmFOdlE581EKIxfNgpMq ZFTUFMRTwvdGQ+PHRkIHN0 zCnfIAgoVSEdgL7fMXCpV1 u7YiGxEgM7 IKawH1UcJHXewdzfQg21qV 1sNwNpIsB3KAfaZ9ZmriY2 WEYklDCcJUccNYX8S63yw1 P1KNHpIRCs NQF7fDF4vG1zrRugsqgasI VmdDsgdmVydGljYWwtYWxp Q702YSBgfMfcIkJhYVPeTK 5jeTwvdGQ+ DU72hg53D4YaCwhhNop4DU MuXZG6wJN1xF0mUSKvVMif b0F8yCL3Q7WwtiFdxx7uu3 xsYXBzZTog D09lkSYlp9G0FCBllXX1NW QflVsrFqReiW30Kna+PGNv mMnow1QdOhjen1uqv3iydK x1GsGpYGCs cpLklWvbQSE6f4LyYp28C8 9sIHdpZHRoPSIzMCUiIHZh iWltsn5mcZ4kHq5+PGNvbC J5eIK6lB6b VxYdBhB0HPwrH009WvWpwN XsNgscr8ftv4jtjRe5IlMn SWSgvuUiaOjnTZN6g8MtJy 65V1PsqFjm q1GvLkb3eu17dUMfb8L6pU R4Y8WzYETfhwgzxBCajPlt SI4jNDRyuiqxNZWmfN3cLD IvI9r8VnNg RcW6RZwpU9ZqytM5HQPmjD RsQNKbmEPLiO1jyhonk9lz rcdsYsGhYZPxDSt8HSs3ZL FsaWduOiBs OLD5AcZ3RVX4hEXqyY1bqU krfqoteJ0yOxa+LIf5r4ju zBOjEW1pgPY4FE11LX80zA Qqc0C3eIS8 V6JrXKSmtriisrxluJI6KU CvGDNsuM58Qx6ijZsjGm8r RSCaGJT5VYUsvWSmC2OutJ 9yOiAjMDAw WPQrN8JqkIXmPWltW307HP rjTyF6ITAuvlBhU0XgPELq jOmgIpB9d2Q4Il3VYZ88XU 42YL60mVIw j8F9bOB0A9JrLJElnqufjd kchLZ5RLDnRLCbaT20Pr1x xDdtRi7vWNOwVDZ0XXHtfD OlX6VyyA8v MgVlGXBlCZNhO7FlvXGqDY zlH572THrgGoM4BYBvwfCn R9VsZYIalPxoErK9k6J3Fc 4QUt36AL35 DS56uYCyc5L2nEQ0Z4BbIU YhvpqjsivdeWX3HHRoVGWo lU88Fm3wbGbgVe2pBZFyXG D7JJDegTPy A1CtgK2cXrQbXLQaVHKyP3 QfuSSdMXozZ891FSshXlE8 DILvaqOvF6AlSZOtfNkmNs M8t4O3Ps0D QItcgvn6H2EyRpbpzBX+PC 98FRIcEX88dYSmyKKnm9nl uYb9CxEnPXGxHCD7wOggLU guk2YmBJPs Y29 (more content not included)... [facility] Consent Formson 07-10-2023 Consent Forms [id number] TGTIFF [facility] ED Clinical Summaryon 2022 ED Clinical Summary [facility] - Emergency Department [address] [place], [place] [id number] ED Clinical Summary PERSON INFORMATION Name: BETTY RAMIREZ Age: 27 Years Sex: FEMALE : 1995 MRN: Acct#: Visit Reason: Fever; Cough; COUGH, FEVER Arrival: 07/09/2023 12:39:18 Discharge: 07/09/2023 16:57:00 LOS: 000 04:18 Check In: 07/09/2023 12:39:18 Checkout:07/09/2023 16:57:00 Address: [place] [address] [address] PCP: Caden Lauren MD PROVIDER INFORMATION Provider [...] Adult Follow-Up: With: Address: When: Caden Urbano [facility], [address] [place] [id number] Business (1) Within 3 to 5 days Comments: Call for follow up appointment DIAGNOSIS: Upper respiratory infection Patient Understands: Yes - Patient/family/caregiv er verbalizes understanding of instructions given Comment: [facility] ED Note-Nursingon 07-09-2023 ED Note-Nursing Patient taken to [place] [address] at this time, delayed rooming due to high patient census. Patient is aware and denies needs or concerns. -05 [facility] ED Note-Nursing Pt. C/O of having fl u B two weeks ago then getting better. PT. states about 3 days ago she started to have a cough with yellow mucus, fever and pressure behind her eyes. Pt. is A&O x4. PT. has a steady gait. [facility] ED Patient Summaryon 023 ED Patient Summary [facility] - Emergency Department [address] [place] [id number] PATIENT DISCHARGE INSTRUCTIONS Patient Information Name: BETTY RAMIREZ Age: 27 Years Date of : 1995 Reason For Visit: Fever; Cough; COUGH, FEVER Arrival Time: 07/09/2023 12:39:18 Primary Care Physician: Caden Lauren MD Attending Physician: Baldo Fair MD Comment: Visit Diagnosis: Diagnoses This Visit Cough ([id number]) Fever ([id number]) Upper respiratory infection (J06.9) The Pharmacy at [facility] is open Thursday through Thursday from 9A [...] alcohol and/or drug addiction problems; contact the [facility] 02/02 Crisis Hotline -text 4hope to [phone]. If you received any narcotics, sedation, or [...] sign any legal documents With: Address: When: Cadenernesto Cavazos [facility], [address] [place], [place] [id number] Business (1) Within 3 to 5 days Comments: Call for follow up appointment Medication Information: The exam and treatment you received today in the [facility] Emergency Department were for an urgent problem and are not intended as complete care. It is important for you to follow up with a doctor, nurse practitioner, or physician?s assistant director for ongoing care. If your symptoms become [...] so we can reach you if necessary. [facility] Emergency Department has provided you with a complete list of medications post discharge. Please inform your data management/provider of your visit and for further instruction [...] You are mor (more content not included)... Normal [facility] XR Chest 1 View Frontalon XR Chest 1 View Frontal CLINICAL HISTORY: Cough. Wheezing. TECHNIQUE: One view of the chest. COMPARISON: [None.] RESULT: No focal consolidation. No pleural effusion. No pneumothorax. Normal cardiomediastinal silhouette. No acute osseous findings. IMPRESSION: No acute radiographic abnormality. Final Signed (Electronic Signature): Wesley Pillai MD 07/09/23 4:32 pm Technologist: Salud CISNEROS [facility] Coding Summaryon 06-30-2023 Coding Summary HTMLBase 64 DghvqvlnUPd3cMn+PGhlYW Q+HM9WPPKuL01arXGtcX8v M7KXYRjPAvnyYXJSFSjEUu LlnzVuIU5bxTFnSQLm IC8+XH0eDNIrJozgpVBgl3 P7xJK9S01xxj6iSCzpfBN5 MPGhHvMqoqkei2tkiMv5AZ cuNmluOyBt HCIknS62HRV6qF26Dj94uE RunEEnu3crcGv3GcEeRPUi MYQ2zGwhAEucq7EbDOBoL4 5imKPkw2S6 TLHhnXvhwESkUqNadES1eD 9lLPeacjtnk0hpsojeVku5 ec50gAQlz1I9dYE4B2Rtra K0KLJvvIHj WzmheSHZqA6mvznfp8kfgc dgFgAeDGPiSSl3XHy7FUHb hJvvYiUrQD89TUF2QGJgjt YsN7TxCGSk tKnhReU6x2L8Ah0GT2BZWa ysW6YLDSUZBSjaxEJ+PC90 op04U1AtJfnaCxu7FQXjZA C7gWA3rP2u PEDjXZkmg7G1zEM8O6Bafn Njav8km7bhFRNxGJhlZ18s zBJyb3Z8FYFgtLV0KNTtuG krHoRsvA87 Oyc+IXZpcWuik3DeRtacv9 zsz1rzwYz2IhziMVCaixCk kIzfFLF3f8CwHo8dKPInmV G6aGT3nR0f YiYdNrB9RTvcG773SoNhgL PfPwfwD52nW2GgzJX+PHRy Zyu8UOGxcUjiZW9rX1VkOP RpbmctbGVm tMpiGB6sPGRfwgkdYJTfqX 5mKBJkV0r3VgWxMcX7JBch P1QxWATpfgedDp05xS3pBa RyFgG7KGry A4HlkcG7HQQekLRfJRlzDD Q0H28nl1D9YIUiBVMiOJS8 uQM9mT4lmTofqtyfoQCvaE sgdmVydGlj BJjsTHslL196QJKjjPndYb NvZGluZyBEYXRlOiAgMTIv MTkvMjAyMzwvdGQ+PHRkIH T5wLpwICGr qLLcKWodJr2ilGuqvQpoZV 5gOTGlawvbDAOccB3lTRSe kRPwoTrzLJ8kQOGybyzxj9 60MtDeDGI1 LCEvmRYnN0XlyY7wRqNeFS DiAYLnZ3ZbrJYsWGioS497 SQunShI6EDSlheXqW9XpXD FsaWduOiB0 o4T5Ew8Wy9JplwpiR9HvoR FpEuAnFvdeLKb9D4LyFruz dHI+MD90TRGhSH59AKq0RN A5iOeqHMfd FTIyG5GytA7iHyVbBURvRC RkOyc+PHRhYmxlIHdpZHRo BKtsJNRqNoHiaYynOE9iCx 9yZGVyLWNv aElbrYUwMnUkc8eeOIQjXK orJU4yhVkaV2XjzIB9GUEh k9v6Cx25U98iB8GnrMZ+PG QobOM8jHJ3 xM4yLeYcTiM5QAslP147Cw IofXSkRgqpm9kqs1rizYl8 MvF5JZEqigShoRpeSBR6c6 ZrPr12T61v IHdpZHRoPSIxNSUiIHZhbG fklb0blX2hYk2+PGNvbCB3 nLB9hB1eOyZzQiW6FDgdN9 49InRvcCIv Ekrsv7wgd0ovnXc3KyJhNR DuyvNnrSznFXN0s9DkOa68 U5JvhYvmf0SzYan8el23jR Xdh5I3pCW1 Q7AoSNFfpxvssGZnkQdcUO 1qPFVjgbyhRMEjjO8rCMQn X2n3YiKfUrJ2KRpvZ6Rqyq D8MHPvdVGz HJRbqBTEtR1wgulfc4qxkf qrJqKqFHYyLVj1KZp0IHTy wXueHpZvMBC1WhN9LXH8eB QpbA8xgRzm zgeynM0dAvn+ZMR3qURfgE ANWX8dMnatsFK+PHRkIHN0 xAiuMUxaJFWmqU1pWJTqV3 m0TaXxNaM6 NYcfS6RshmP7UOFuiFUdVD SfbUFSwF8uzvaef5cjwxss HlFxSMRrHUk3XIz4OWWncD duOiBsZWZ0 WuB4GFL8kPEskO9noXccrk jfkB1wMbs+QmlydGggRGF0 YGc5B9JkXhd6RWYsrXslLN 0ncGFkZGlu Pv1nwSiztTtkQB4kDTKvvr dsc116ThNfq4acYDDrxKAa HPbtKCZ8N94oe4P3DPRsSW GoEAI0rWI0 hU2bzVamisgjnOXcrSsqry RydQxtYQarITncF853BSFp dVbjOaFcJQp5R9YfXun5OE DdzCpuDI0w vTOsVCpkZq8euUidlQruDP 7kEBYzxztuh217WhVwk4zp XVPjpQGkDYmfIZT2S38zy8 A6FTShJZXz YDG0oHS3jG1viPmzykzfjA VmdDsgdmVydGljYWwtYWxp T153EJFfcWanNnNxpJb5B8 VbPvh4KNLz bNskXC9spMEzMHcpAk6ewR bdkDvvWW0oCMTkazpyo091 OeBmn1kmVVQpxXZgLFtpFC R3X89za8I0 ZDXoRFYjGGE8eQI9tK7hvE lnbjogbGVmdDsgdmVydGlj EInrTAcfP921NDOmzLktUw BhdGllbnQg RIggSTo0Q8TxEvirzDK+PC 99MSCzPG80uZZftKXco0bp hVc4FrBvCGEsMUA5pUgpPX flb7SwGEHp K37bcVOsk5Y0FCVhdCvveM FiOsQmqTM9aI1mVDrwtzbn k2rrqsilDicii2xkoj29pF 90K01dTEgz ZHRoPSIzMCUiIHZhbGlnbj 4epO9nQn0+NWYdvCO0iBM6 wZ6nWSNuVjA5OIhdN979Ne RvcCIvPjxj v9ulw8pcdMc1NkI4OKOjxe AyxUmjQCC0f6OlZk75J69g IHdpZHRoPSIyMCUiIHZhbG ahmw1eaP8a Ii8+FMUhhBS7rVY0eO8tYq XvRcG8FQimE313NgOxyDWw UzsuG57lI0SsiAD+PHRyPj x8UAZdpOip VO3hhNExWUviTm9tPME2Fb TwNwKjVWykR2ZsTEHjmgbr xfrzzXG5ZCIzZJFosC80Yh 9udDogMTBw nSSTaD3nkfjjn3wnaaphBl JiYEUrKFn2PYx1RTFbyMrt NiQsUGZ6BpR0YSQ5jUYqyK 1hbGlnbjog fM8uJ0KeGLPyuzytGy11vH 5iGlMaSkN8LOaaYbl+V0FH EsMJDESDUXCAFF4YDSMPZa wvdGQ+PHRk VZK9iHafBIjaLKWtnC5aLM NqD9a1QvShJcL4VAqkN7Vx KBSzymxfJx93kR1jHaXvQj M1QSwcL1Uv lpM6JNPkiAZzYZxiOSI7H0 8zw3J8HRKnMZPcCBU8aHO8 xX2jzOfvzubtiMFjhQnxdu VydGljYWwt YDjzR932IGDhjOfsWqUyQh I4GkL2POg8W4RcOla4RUOd yUxqGC6ezSTwZYzoVy6igF rgyYmhAS4a IDCfahadAHAzzS8yMMIjjX LxjWelAA7hBMJhzghxz178 GxFbRIA1PESoxELjD8CshL 9yOiAjMDAw WKLgU1EtzFQnJShxP688HE jqPhH8JGEzjeTtB4KpPJWj jKxjCcV9n8H7My7cRYRTAO FyczwvdGQ+ UILtMWG8tZkzOFysZNWvdS 0fRJUdU2j7DtUxLnA3VQky F8PoOIMpbamrFy14gI9mJm LoHxY2QPwf F1QodxY8HKOucRIyLQsgIC L8F99rs3E9MQYmDTPvDCT2 lLT0wY0tsUivbegbiBUhiM sgdmVydGlj FCsrNMtaO742VVHmnHqcRw ZFTUFMRTwvdGQ+PHRkIHN0 pMxcAOyeADWwvN8tZQMwA8 r3TpBzJaW2 TUgpG2QzHONkbcrjHm06gZ 3fAsLpPbT1GPppK3NaaqS4 WXYedGJwZPpgBCF0X11gc7 C7EHCeFHTb GJK6kKG1fV5iwTqyjrqazL VmdDsgdmVydGljYWwtYWxp V832PXGfpDjnSpEjYFGsNG 5jeTwvdGQ+ HL40mn73R5UiFrxzHnx5WE DrINC6qEM4aM9hQFCxSYzt s8A4yVL7M4TwalSdyp2bh2 xsYXBzZTog E59wyIVbj9F3BYJwnLP0UB JycNkvRkRytV32Rgv+PGNv yKoqk8CoQdsid4rfp1ptiY k2XaWuDWYn syNheQxvIUW8l0OdTt51V0 9sIHdpZHRoPSIzMCUiIHZh jDnwzy2qhD8iXh7+PGNvbC U6pGS9yG4m SjNqKkP3KEypY589LlTdfJ QaXxyrq6tkj7lpkRa9NmDw WHNtnyPscVegCUC2i8IsKd 16V5FsgIdl r8CoWpf0kh86cNZyg4L0rG L8N7EeXFRiirucoHPxuXst BL5yAVLfkddjBKRsuC6pBC WuH9n1BhBg HzN1DNcmX0DrmgK2LDRmqB AlUGZboLOTyR9yxmksx6jy tacsGdKfYBJwMPh7KEh2QN FsaWduOiBs QXX0JxR0ZFN8jURkwI0lfH sckbzutQ9fQns+UOe4b5rh qQWvVT7lkCN0KB56WS71nI Pxk9V4yGI2 P6PxMDJwtphvemvumJK3MC RgHROfuS69Mo1xrLwmXq8q ZOOxLJL2LLIqxBPpS6QtwR 9yOiAjMDAw RPOoD4GntRPuGOcbB124QD ndIjG9ZQFpozEeA7WxSPGo aHybUjD4r3Z8Jc1WFO92AU 52LM76cKHw n6V1aIX7H4VfFRCupjpyde vtvZE8SDHoZNMhvT57Zk8n cUrmAj4qEHWkUVO8XGUkhH XpK3SlrB4g YcTkDIHsOKUiI1XycLNcBY fmZ913VVdmKnC2PXTgeyFr B2PnWHRzhZquVfH8a1G0Zb 5CKb69RO77 BL42sTMxt9V6nKR9O9HzWH RtlizrhsbriDI1SOYvHCEz uP17Lq4pbYtqTf5fZLFiRN Y0YHHosNTz W5AloB3oOsMyCGGpQWIwI2 ZvkZOuPYniP702WJbmFdC6 FZZmafKfI9AcJORhzQgdCp K4n3E5Mr8O CEmfijn1Z5WsGgkqeWK+PC 82IDLlZX15wHRiuEGoh9vo pOo1LeZoSSLiFSF4nAcuEF umb1ZfDYNq Y29 (more content not included)... Normal [facility] C Throaton 06-25-2023 C Throat Ordered by Vira. Normal throat sierra isolated No pathogens isolated [facility] Comment on above: Performed By: #### 7 [id number], [id number] ####[facility] (DEFAULT)[address] [place] [address] .QC SARS-CoV-2 (COVID-19)/Fl u/RSV (GeneXpert)on 06-23-2023 Internal Control Pass Normal [facility] Comment on above: Order Comment: Order ed by Vira.[[email or web address]] Performed By: #### 7 [id number], [id number] ####[facility] (DEFAULT)[address] [place] [address] COVID/Flu/RSV (GeneXpert)on 06-23-2023 Flu A (GXpert COVFLURSV) Negative Normal Negative [facility] Comment on above: Performed By: #### 7 [id number], [id number] ####[facility] (DEFAULT)[address] [place] [address] Flu B (GXpert COVFLURSV) Negative Normal Negative [facility] Comment on above: Performed By: #### 7 [id number], [id number] ####[facility] (DEFAULT)[address] [place] [address] RSV (GXpert COVFLURSV) Negative Normal Negative [facility] Comment on above: Performed By: #### 7 [id number], [id number], [id number] ####[facility] (DEFAULT)[address] [place] [address] SARS-CoV-2 (COVID-19) RNA MAYCO+probe Ql (Unsp spec) Negative Normal Negative [facility] Comment on above: Result Comment: Perf ormed by PCR methodology. Performed By: #### 7 [id number], [id number] ####[facility] (DEFAULT)[address] [place] [address] ED Clinical Summaryon 2022 ED Clinical Summary [facility] - Emergency Department [address] [place] [address] ED Clinical Summary PERSON INFORMATION Name: BETTY RAMIREZ Age: 27 Years Sex: FEMALE : 1995 MRN: Acct#: Visit Reason: Sinus Pain/Congestion; Cough; SORE THROAT, CONGESTION, VOMITING Arrival: 06/23/2023 09:52:37 Discharge: 06/23/2023 11:16:00 LOS: 000 01:24 Check In: 06/23/2023 09:52:37 Checkout:06/23/2023 11:16:00 Address: [address] [place] [address] PCP: Caden Lauren MD PROVIDER INFORMATION Provider Role Assigned Unassigned Deven Marie DO ED Provider 06/23/2023 09:55:34 Nestor Wilson PERL DEVELOPER Nurse 06/23/2023 10:25:25 VITALS INFORMATION Vital Sign [...] Medical history: Resolved Superficial laceration of scalp ([id number]): Resolved. Acute laryngopharyngitis (50655317): Resolved.. Surgical history: No active procedure history [...] Reevaluation 27-year (more content not included)... Normal [facility] ED Note - Physicianon 2022 ED Note [...] Medical history: Resolved Superficial laceration of scalp ([id number]): Resolved. Acute laryngopharyngitis (90522918): Resolved.. Surgical history: No active procedure history [...] amoxicillin. Impression and Plan Diagnosis Acute sinusitis (NPN24-IF J01.90, Discharge, Medical) Plan Condition: Improved, Stable. [...] of instructio (more content not included)... Normal [facility] ED Note-Nursingon 06-23-2023 ED Note-Nursing private vehicle arrival with c/o cough congestion since last with multiple sick contacts at home. lcta. maintains ra saturation. rr even and unlabored. [id number]. no distress. oriented to call light. s/o and childx2 at bedside. pending swabs Normal [facility] ED Patient Summaryon 023 ED Patient Summary [facility] - Emergency Department [address] [place] [address] PATIENT DISCHARGE INSTRUCTIONS Patient Information Name: BETTY RAMIREZ Age: 27 Years Date of : 1995 Reason For Visit: Sinus Pain/Congestion; Cough; SORE THROAT, CONGESTION, VOMITING Arrival Time: 06/23/2023 09:52:37 Primary Care Physician: Caden Lauren MD Attending Physician: Deven Marie DO Comment: Visit Diagnosis: Diagnoses This Visit Acute sinusitis (J01.90) Cough ([id number]) Sinus Pain/Congestion ([id number]) The Pharmacy at [facility] is open Thursday through Thursday from 9A [...] alcohol and/or drug addiction problems; contact the [facility] 02/02 Crisis Hotline -Text 4HMMR [place] [phone]. If you received any narcotics, sedation, or [...] legal documents With: Address: When: Caden Urbano [facility], [id number] [place] [phone] Business (1) Within 3 to 5 days Comments: Call for follow up appointment Return if symptoms worsen Follow-up in 3 to 5 days unless symptoms are resolving Medication Information: The exam and treatment you received today in the [facility] Emergency Department were for an urgent problem and are not intended as complete care. It is important for you to follow up with a doctor, nurse practitioner, or physician?s assistant director for ongoing care. If your symptoms become [...] so we can reach you if necessary. [facility] Emergency Department has provided you with a complete list of medications post discharge. Please inform your data management/provider of your visit and for further instruction on these medications. Any specific questions regarding your chronic medications and dosages should be discussed with your primary care physician(s) and/or pharmacist. New Medications [id number], [address] [place], [place] [id number], [phone] amoxicillin (amoxicillin 875 mg oral tablet) 1 [...] sinuses. W (more content not included)... Normal [facility] Strep Aon 06-23-2023 Strep procedure control Pass Normal [facility] Comment on above: Performed By: #### 7 [id number], [id number] ####[facility] (DEFAULT)[address] [place] [address] Streptococcus A Negative Normal Negative [facility] Comment on above: Performed By: #### 7 [id number], [id number], [id number], [id number] ####[facility] (DEFAULT)[address] [place] [address] Coding Summaryon 04-03-2023 Coding Summary [facility] BszpbpumTDz2rQc+PGhlYW Q+AJ4EQXDuU85itNUakG1k N3HUJUnTUtqaOGHNMYcYKg WkvbIiQY0qcAKoVBJs IC8+SN3yOHWwLejddEDre0 Q5tUP6U52zdc5uHNeoxPY8 BZCrSyWrrdxus5dciJr2DX cuNmluOyBt RZNomF09EDY1kX34Vm20iY MauOCsr3aevZp7GzPwYEVy OTD4yWxgEUbid1IwCYQoI4 0soSIak9K7 NBJygTaheFVuTjNpiOZ5oO 7pVJpxpdzud3buhqyhWmh8 rd34oNPoa9I4uUL8O0Uotl P4MMYlmLFn IoeqaFJEjT4tapgnc6nhnj hqDhPnMERhAMt5JUm9JIDx eZvcIrEfTG88YQX5WEQhio NgZ5JkRLCx jAmbJiV1k7B8Gv2AJ9PWOh lrK5VBFPWYTOjtoCG+PC90 bw36R8LoPvvqLnh5SEAlTS P9wJS8bG0k ZFNuLBdco0E6hIS8I3Geyu Sopo8za9flWBSwTWmhN87v mFDxl0Q0KFBhaBQ7FLQogT flRnOewB47 Oyc+QDOhgPgkl3PpCghel6 xap4ppxQh5FmvvPSXpjyRm mWueROO7j2ZxUr2cNBYzrU Q2kNL2sJ7h KuNtGtC9NMnuF236WzMmvL ApFuiqO24nB3LjkUY+PHRy Okm4XHJdjVqeZH3hC7FpXG RpbmctbGVm sHlhCL9lVJRrhiesARCyrZ 9iMGTfO7f3RkVcDuA0XNxl R6QkQLSpmawsDr20eE8fNz FrFaJ9MLnt P2KwggQ8BDUtfAPgRAmqUO Q4S69gr0J5LSHyEJYjWRT5 tRF3kI9jxYsdqzcyeBHlhM sgdmVydGlj GQeiMVefM029XWZlmMvaFp NvZGluZyBEYXRlOiAgMDkv MjIvMjAyMzwvdGQ+PHRkIH G2bLqqRPBu rOXsQJysFo5cwZomrIllOD 3yVOVitrjvOLPbxQ9dMMHq eOKqnQqoLZ3cRGZzzvzmg0 51WaAgDBF0 JCAttXNrA9EvoR0tVhBdZA WdWUObU8QkhAGqDEesS495 DHmpKeM8RAMwmzZvM0XvKM FsaWduOiB0 t0M0Mt6Ei7JumnwbV5ItxP XiJcYuYnsuYNu1W1AaFexx dHI+ZY22CPRkEO19HWq3OH J8iJfaZSch ZLQzL9IixF8gSuThOVZeBJ RkOyc+PHRhYmxlIHdpZHRo PUsqKDChFqQhjHpvXN4nNt 9yZGVyLWNv mQvcaDXuKsSwt0qmTBSpGH bwLG2ysIqsP9QpaPD4MHWq g9o1Ml56L11pH1IxdCY+PG MqzVJ8aWJ5 aQ9fNqVaJhX0YBfzF283Zu UsiUAmTzayn7eek3wiqHl1 IoK7HXPnfcCtmStrZTY4x1 GuZu23I40o IHdpZHRoPSIxNSUiIHZhbG yvul6zgS3zLh0+PGNvbCB3 bWV1bG4tVhItDwE1YLsgD6 49InRvcCIv Ogcvd1iso7wwnYn9RxTwRI KaieFseIlqTKZ7d7UlEr01 C6ZptGzsz1LhLvd2zz90lD Ohf4T4wIA0 D8AqBAWknfhenTUbtYphGP 0wSIPyvfjjOALmbN0vHXDb B7r6ZbTdBcC5MObtH2Lpek V0QDKmoVJt QDZhmVBUcS8dlngrs4bmhz jkXiTjPJIpFUo4NGj4BUTr nBavYaBbFSM0IeD1PTH7pS NriZ1qbQnm vjfnbY4cSjy+AVK0lNOajQ PVCF6yQfrwaJY+PHRkIHN0 aAyaWWwyGZOhwN3tFUQjX3 k7QoNbUoB6 PPgdK5UlwwE3PWTbsUJbZY EljVVUfV6gljnue6yndfcn WpYbZYGfZOf1PTp0RXZgxW duOiBsZWZ0 BbG0NOQ5cYIvvR3qlFcozw ayhN7fGwd+QmlydGggRGF0 DNn4Q2TjNrf1ASRxgJrdYD 0ncGFkZGlu Qh1usAbfxSilUK4mCAVknk mnh193UgVby8pnYVFpiMWw PMxfTIW0S34io8C6BRMfVI WhSDH0fVM2 cL6vjUxrlqpijOJzvOywnb KilWijDFalBNjnA399OEGo eEzpZmTgPZp5U2HxByz8CK NqaZsdSV2j bOKnGBysDs4fiTqbrDkbPZ 8nUUVqcijws698CrGwc3sr BCGswQRvGCqfQVD6T23ln7 B3EQCuOMBy ZIS0dXY2nS5luTayqtmvzC VmdDsgdmVydGljYWwtYWxp F466OFSooUdeNlKmaKj7Q0 KzXok1DMFx zImxNB3anSSbSLxlOq2ixV mhsRapUJ5yIVTtblcox757 ImGyq7wkAHAouPYrYBgnOD W6G83sa2A6 HCUpBARfVGC6cEJ7lO1eqC lnbjogbGVmdDsgdmVydGlj QCytOFeeY429VVBzsCpmDk BhdGllbnQg XPfuROj4W8CmCctmyYP+PC 40PXHpKD96eGRyuTUbb9uj gJq6VvSgIEMsSWA4hGpsLX ajd9InYGZl S97taWZhu7K2HCOvkKiduI ZlWeMmjGL1uL1sPPvavlzp a4amshsjMmmbo6msdu53sV 63U25uBHoe ZHRoPSIzMCUiIHZhbGlnbj 5ddR8dMv8+ULAicKO2xMJ2 vA0qERCiJbD2BMegG836Je RvcCIvPjxj q8thm0nntDe5SmK2UERiti AowWezSJK2f6QqWz70F60d IHdpZHRoPSIyMCUiIHZhbG vgdp3vjH9t Ii8+IBDroEA0sTN3oY4wWc HoMeV8HAdbN864OoStvESa CeqvF23pE6ZymWI+PHRyPj n6XUXwnKgj EL6xlPNcCVgwEz1ySZP5Lh XkPbZgVWbbO9RlAXXpfeui tbxrpWF6VWDvSFEjpW54Ek 9udDogMTBw lNXQxH2yrrtgf6ydjhdiAq AjRMMvJDx0AMv0GXSmvOae LcYmUOU3ZzU0RGM6pASajH 1hbGlnbjog fA2hN1EtSQHeimgaLc50dN 0jUpWvBqP1TEvrWnv+V0FH EhFFKTNXKVSXZK8GVUXAPx wvdGQ+PHRk JVH2sSyyFDygRALlbS1zEL IoN6d5CiYuDqO3SOxjX7Dh BDQdrulqLq63mU4nVmPyOd S5EIfpN5Ay qtP8YLIhhZZzBQokAER9B5 9yf7Y7IZHjFCLeMNN2uEW1 bE0mfUdinyzubBCdfNdrnm VydGljYWwt PPvjC336TMUdrXanTkEaDx Z4KvE5MBv8R8YuCnp3GNGh xUhaYT3amFQiYHbpJh3esW cxtTksTB7d NZLryrptWXPqoW1zQSZmvF ExlWwqRW3kVAKpljusm882 JuYbZJQ1UDNvvFOaH4GydA 9yOiAjMDAw OOXjL8LezNVeKWgjC727BL hfItR2JTZfkvQnD9NfUWGs qPlvSoF3d5C5Zl3ySSMVIM FyczwvdGQ+ AHFmQSN3xInnPRimRBZfsG 3vESStS2o3VnEoYyN2LRcj W6HbBVWyacdjDv86kU2rBs TsNiO8JQia I8PzyzX7FVHgtVZbTWtcNF I9S30ok2W5OEFyQGNvPAP8 sUH9pX4reHsmdrbitVFcyP sgdmVydGlj EYfmJMdwG305HDWbzHisRw ZFTUFMRTwvdGQ+PHRkIHN0 xUxdSQvmRAQaxG5xSBFaA3 g5PgYiRvO8 YMbiC2PsFDCsjthwVl88kU 5nYaMkYtQ1JSpwB5PlcrR5 IRJazFIcZEdbBWB6S27kb7 Q4MQKqUAZt JFC5zLP9hE4xlIjgbsztbJ VmdDsgdmVydGljYWwtYWxp L162VHQwmTszXyLgUSVnMP 5jeTwvdGQ+ SV77xe34B1ByJvxgYfk5HM JtOPR6sUH7vG4oIALhVFxb k3V2xVN0P8JrpjMoro4td8 xsYXBzZTog X77kiXDaw7Q1PNDxtGA4VT TiwWdfTsIpcS07Hep+PGNv iKkbd3ZtQxdbp7jqs3gkzR e0CwPsGBAe xrBlkLacFUV2n9YmNl28H0 9sIHdpZHRoPSIzMCUiIHZh lTtpnh1oaQ2nQt4+PGNvbC R0iTP8tN0u KrHbPdK5CNwwT427HcAdzK QmXoihd3jjh6idbUg4OaXe XFJzjcPbvIxwDEX5z4RiHo 78Y8RkoRdn b2MwBfd4nq90fKYeg9J4kG H4I1UgVKIvrsufjFBydBlz HQ5yMRKlwqzcEZGspI4jUF YmZ2s0BzUs FgK8KAznV5MizzJ2DTMbfQ WvJHQxcCGIfD5ivyyjs9uj hynqQbRyFMUtGMx5UNq1FL FsaWduOiBs JSO6XiW2MYK1kAUoxT2qpS oaybtswH4pCtr+JEn0b6mw mQQlPG1zuBQ7PW18HX36oZ Cbd7B2dMD5 E9LkLXGlpjojlpdtsUF4SS WyBAXuzB27Ib3zcGdoSp0z BFYfUYI1WZNlaBRdS1NfdN 9yOiAjMDAw NHTnW1OznAMvUBxpW609NM nlWsI6IHWboiTrL6NiXOAs gFejZzK2l0F4Yy3UVC20ZJ 54AT93sMQb e4T8pTX7M7OqEFUpgohniz sruMP6XFJqEHHuxI05Gs0p kWhfLk1mLIMvXKM7CKSosP YdC9UsrS7w HbElPWUxZWNzJ0JanPOrLF zzX144LOzwBbQ1BSLtneHy N2KkPJLpvLpuTcC9f4D7Ws 1GIb39RQ38 QU34tIJke1W8aJP5K3LcVW TjdshljeguqPU3GOOlFHIq mD01Ih4pqRlaSf3pOWBcLK Z2QQZngWBu V6JryR3nDeXxRVLvUOYmW7 KgyVOpUJwtO213OLkaMoU1 OKXyarKsF7ObRMGnsYjtGk I1s5D1Sz6F ENjeudo5V1EkCducdZW+PC 36ASLoGA87aUZqkFLpc0ls lSu0ZlLaYIRtXVV1pTwdST cqd4JhTQHw Y29 (more content not included)... Normal [facility] .Auto Diff 03-21-2023 Auto [place] % 10 % Normal 07-24 [facility] Comment on above: Performed By: #### 7 524235, [id number], 6387079, 48814415, 3821206081, 7941488501, [id number] ####[facility] (DEFAULT)[address] [place] [address] Baso Abs# 0.1 x10 Normal 0.0-0.2 [facility] Comment on above: Performed By: #### 7 591581, [id number], 6330361, 02948417, 5693062771, 2108849890, [id number] ####[facility] (DEFAULT)[address] [place] [address] 91728 Basophils/100 WBC (Bld) 0.9 % Normal 0.2-2.0 [facility] Comment on above: Performed By: #### 7 790851, [id number], 7206047, 55782154, 5212217470, 5348852121, 2781168582 ####[facility] (DEFAULT)[address] [place] [address] 60445 Eos Abs# 0.0 x10 Normal 0.0-0.4 [facility] Comment on above: Performed By: #### 7 953245, 7078292577, 9675009, 31306866, 4204204692, 1593003580, 0446254369 ####[facility] (DEFAULT)[address] [place] [address] 50648 Eosinophils/100 WBC (Bld) 0.4 % Low 0.9-4.0 [facility] Comment on above: Performed By: #### 7 730731, [id number], 2373750, 15784344, 5124367519, 2930914880, 2894042548 ####[facility] (DEFAULT)[address] [place] [address] 70287 Lymph Abs# 1.8 x10 Normal 1.3-2.9 [facility] Comment on above: Performed By: #### 7 046468, 9751948985, 5462692, 96882001, 4399382833, 7324262613, 7989199764 ####[facility] (DEFAULT)[address] [place] [address] 01383 Lymphocytes/100 WBC (Bld) 27 % Normal 14-48 [facility] Comment on above: Performed By: #### 7 314232, 5617390538, 5352552, 38263227, 4336505621, 9989060236, 8652193373 ####[facility] (DEFAULT)[address] [place] [address] [place] Abs# 0.6 x10 Normal 0.0-0.8 [facility] Comment on above: Performed By: #### 7 213152, 4517240203, 3436894, 98642048, 0769791278, 7543652940, 0278309436 ####[facility] (DEFAULT)[address] [place] [address] Neut Abs# 4.0 x10 Normal 1.5-9.2 [facility] Comment on above: Performed By: #### 7 916690, 7934921732, 4036072, 70928707, 6323953645, 1363944389, 4694221694 ####[facility] (DEFAULT)[address] [place] [address] Neutrophils/100 WBC (Bld) 61 % Normal 44-88 [facility] Comment on above: Performed By: #### 7 683405, 4698044255, 0554521, 47669584, 0685912709, 6850169000, 5848877697 ####[facility] (DEFAULT)[address] [place] [address] ABORhon 03-21-2023 ABO and Rh group Nom (Bld) Hx Check: Found Anti-A: 4+ Anti-B: 0 Anti-D: 4+ DCon: NT A1: 0 B: 4+ ABORh Interp: A POS Invalid Interpretation Code [facility] Comment on above: Performed By: #### 1 [id number], [id number] ####[facility] (DEFAULT)[address] [place] [address] CBC w/ Auto Diffon 3 Erythrocyte distribution width (RBC) [Ratio] 13.4 % Normal 11.5-15.0 [facility] Comment on above: Performed By: #### 7 975393, 1791667149, 6247285, 47475336, 7398407987, 1457515899, 9268144842 ####[facility] (DEFAULT)[address] [place] [address] Hematocrit (Bld) [Volume fraction] 39.9 % Normal 33.7-40.4 [facility] Comment on above: Performed By: #### 7 007089, 1642752426, 5060266, 23212624, 4872737699, 1381068679, 0724809899 ####[facility] (DEFAULT)[address] [place] [address] Hemoglobin (Bld) [Mass/Vol] 13.8 g/dL Normal 11.3-15.9 [facility] Comment on above: Performed By: #### 7 949413, 7862382311, 8937379, 79192674, 1880657874, 3768228352, 9012009603 ####[facility] (DEFAULT)[address] [place] [address] Man Diff? Auto Invalid Interpretation Code [facility] Comment on above: Performed By: #### 7 391099, 1637989769, 7481910, 16207742, 3448916254, 7172766238, 5198145539 ####[facility] (DEFAULT)[address] [place] [address] MCH (RBC) [Entitic mass] 30 pg Normal 24-34 [facility] Comment on above: Performed By: #### 7 093566, 8539279560, 8481818, 57867246, 3668571976, 0085143842, 9902741259 ####[facility] (DEFAULT)[address] [place] [address] 82284 MCHC (RBC) [Mass/Vol] 34 g/dL Normal 26-37 [facility] Comment on above: Performed By: #### 7 003090, 1936892484, 5730734, 07063824, 1110127795, 5510384300, 9743152330 ####[facility] (DEFAULT)[address] [place] [address] 34955 MCV (RBC) [Entitic vol] 86 fL Normal 81-100 [facility] Comment on above: Performed By: #### 7 066969, 9608375740, 2895745, 45879830, 7727001287, 9317557090, 4448902717 ####[facility] (DEFAULT)[address] [place] [address] Platelet 245 x10 Normal 138-427 [facility] Comment on above: Performed By: #### 7 742022, 9672739530, 0642705, 23230147, 1924118785, 1656566557, 9164750980 ####[facility] (DEFAULT)[address] [place] [address] 15835 Platelet mean volume (Bld) [Entitic vol] 7.1 fL Normal 6.3-10.2 [facility] Comment on above: Performed By: #### 7 749893, 3977389012, 9788930, 80508555, 5253570255, 2277112008, 8770767375 ####[facility] (DEFAULT)[address] [place] [address] 00351 RBC 4.66 x10 Normal 3.70-5.30 [facility] Comment on above: Performed By: #### 7 694631, 4394619617, 9460479, 99144017, 4820113471, 8082185416, 2869684920 ####[facility] (DEFAULT)[address] [place] [address] 59337 WBC 6.5 x10 Normal 3.5-10.5 [facility] Comment on above: Performed By: #### 7 383056, 3934676118, 3811102, 59009125, 4789411850, 9152576577, 7203327453 ####[facility] (DEFAULT)[address] [place] [address] 48527 CMP Standardon 03-21-2023 eGFR Non AA >60 Invalid Interpretation Code [facility] Comment on above: Performed By: #### 7 150396, 4532246490, 5930271, 18051833, 5353682233, 8077470285, 7380244263 ####[facility] (DEFAULT)[address] [place] [address] 27331 eGFR AA >60 Invalid Interpretation Code [facility] Comment on above: Performed By: #### 7 440789, 3972210350, 7284272, 95012247, 3725961883, 3183468661, 4638361634 ####[facility] (DEFAULT)[address] [place] [address] 23780 Albumin [Mass/Vol] 4.3 g/dL Normal 3.5-5.0 [facility] Comment on above: Performed By: #### 7 778331, 3527893193, 6577089, 00940137, 1445983105, 8576960047, 2784448257 ####[facility] (DEFAULT)[address] [place] [address] 73685 Albumin/Globulin [Mass ratio] 1.2 {ratio} Low 1.4-2.6 [facility] Comment on above: Performed By: #### 7 841265, 3712960232, 8947192, 26950592, 5552905702, 3434702203, 0280608602 ####[facility] (DEFAULT)[address] [place] [address] 21764 Alk Phos 43 IU/L Normal 32-91 [facility] Comment on above: Performed By: #### 7 419773, 6683554335, 6732097, 53654484, 0461187094, 0384299269, 1519502821 ####[facility] (DEFAULT)[address] [place] [address] 38967 ALT [Catalytic activity/Vol] 23.0 U/L Normal 14.0-54.0 [facility] Comment on above: Performed By: #### 7 337116, 6975632773, 5465160, 09450464, 9123330629, 3732591282, 1881988556 ####[facility] (DEFAULT)[address] [place] [address] 63408 Anion gap [Moles/Vol] 9.7 mmol/L Normal 5.0-19.0 [facility] Comment on above: Performed By: #### 7 880940, 2581494765, 5363991, 42436067, 4634601551, 0869763261, 6527544010 ####[facility] (DEFAULT)[address] [place] [address] 49547 AST [Catalytic activity/Vol] 23 U/L Normal 15-41 [facility] Comment on above: Performed By: #### 7 566049, 9900919788, 5742560, 79714373, 6754060963, 3504815512, 1853674482 ####[facility] (DEFAULT)[address] [place] [address] 40821 Bili Total 0.8 mg/dL Normal 0.3-1.2 [facility] Comment on above: Performed By: #### 7 986529, 9387603836, 0325503, 43467334, 6559505083, 2407415531, 7825170919 ####[facility] (DEFAULT)[address] [place] [address] 46694 Calcium [Mass/Vol] 8.8 mg/dL Low 8.9-10.3 [facility] Comment on above: Performed By: #### 7 834601, 6303726964, 7354278, 85674406, 1997396528, 7830548149, 4795479241 ####[facility] (DEFAULT)[address] [place] [address] 66716 Chloride [Moles/Vol] 104 mmol/L Normal 101-111 [facility] Comment on above: Performed By: #### 7 848078, 5858177580, 6829804, 75753577, 7041062066, 4103329848, 2260216082 ####[facility] (DEFAULT)[address] [place] [address] 96407 CO2 [Moles/Vol] 22 mmol/L Normal 21-32 [facility] Comment on above: Performed By: #### 7 234560, 4068346765, 2553589, 38676633, 7175358269, 8721416231, 1749360836 ####[facility] (DEFAULT)[address] [place] [address] 11962 Creatinine [Mass/Vol] 0.45 mg/dL Low 0.60-1.30 [facility] Comment on above: Performed By: #### 7 364929, 2296909657, 4460965, 12197886, 9903300421, 3704445010, 9065373827 ####[facility] (DEFAULT)[address] [place] [address] 33678 Globulin (S) [Mass/Vol] 3.5 g/dL Normal 1.5-4.3 [facility] Comment on above: Performed By: #### 7 458749, 0708802496, 3887147, 91689887, 3142759770, 5553549394, 0770123910 ####[facility] (DEFAULT)[address] [place] [address] 27160 Glucose [Mass/Vol] 84.0 mg/dL Normal 74.0-118.0 [facility] Comment on above: Performed By: #### 7 243718, 6794326227, 3701148, 77291594, 3152594041, 0854385594, 0350946395 ####[facility] (DEFAULT)[address] [place] [address] 27729 Osmolality 262 mOsm/L Invalid Interpretation Code [facility] Comment on above: Performed By: #### 7 788037, 8072247125, 7209713, 86621546, 4818166001, 4855610257, 1150656534 ####[facility] (DEFAULT)[address] [place] [address] 72617 Potassium [Moles/Vol] 3.7 mmol/L Normal 3.6-5.1 [facility] Comment on above: Performed By: #### 7 694458, 6663062914, 4726637, 16026383, 7020894404, 6952282259, 7794777890 ####[facility] (DEFAULT)[address] [place] [address] 83191 Protein [Mass/Vol] 7.8 g/dL Normal 6.5-8.1 [facility] Comment on above: Performed By: #### 7 419571, 9606157816, 1945020, 46871919, 6065412404, 4376692810, 4448108907 ####[facility] (DEFAULT)[address] [place] [address] 19784 Sodium [Moles/Vol] 132.0 mmol/L Low 136.0-144.0 [facility] Comment on above: Performed By: #### 7 120154, 3429794444, 9359081, 36539836, 9747056075, 1782629529, 9164117237 ####[facility] (DEFAULT)[address] [place] [address] 75354 Urea nitrogen [Mass/Vol] 7 mg/dL Low 8-26 [facility] Comment on above: Performed By: #### 7 207900, 1500556494, 4873485, 20179898, 0848002502, 0200681325, 6520544824 ####[facility] (DEFAULT)[address] [place] [address] 15764 Urea nitrogen/Creatinine [Mass ratio] 15.5 mg/mg Normal 4.6-16.2 [facility] Comment on above: Performed By: #### 7 361176, 8635463167, 3874249, 59982364, 9815491556, 8330392963, 3208476919 ####[facility] (DEFAULT)[address] [place] [address] 39792 ED Clinical Summaryon 2022 ED Clinical Summary [facility] - Emergency Department [address] [place] [address] 47190 ED Clinical Summary PERSON INFORMATION Name: BETTY RAMIREZ Age: 27 Years Sex: FEMALE : 1995 MRN: Acct#: Visit Reason: Abdominal pain - ; Nausea; NAUSEA, ABD PAIN, 7 WEEKS Arrival: 03/21/2023 12:26:18 Discharge: 03/21/2023 17:51:00 LOS: 000 05:25 Check In: 03/21/2023 12:26:18 Checkout:03/21/2023 17:51:00 Address: [address] [place] [address] PCP: Caden Lauren MD PROVIDER INFORMATION Provider Role Assigned Unassigned Carol Blankenship PA-C ED PA 03/21/2023 12:47:55 Jocelyn GU, Alona Mckeon ED Nurse 03/21/2023 12:55:34 VITALS [...] EDUCATION INFORMATION Instructions: Nausea and Vomiting, Adult, Xcyw-qy-Nruk; Warning Signs During Follow-Up: With: Address: When: Caden Lauren MD [facility] [address] [place] [address] Within 3 to 5 days DIAGNOSIS: 1:Abdominal with intrauterine ; 2:Nausea and vomiting in Patient Understands: Yes - Patient/family/caregiv er verbalizes understanding of instructions given Comment: [facility] ED Note-Nursingon 03-21-2023 ED Note-Nursing Patient arrives to [facility] ED via private vehicle. Ambulated with a steady gait to ED room 8. Alert and oriented X4. C/O nausea, vomiting, and mid-left abdominal pain. Patient reports she believes she is approximately 7 week . Reports experiencing cramping and spotting approximately 1 weeks ago. History of preeclampsia. 3 Para 2. [facility] ED Patient Summaryon 023 ED Patient Summary [facility] - Emergency Department [address] [place] [address] [id number] PATIENT DISCHARGE INSTRUCTIONS Patient Information Name: BETTY RAMIREZ Age: 27 Years Date of : 1995 Reason For Visit: Abdominal pain - ; Nausea; NAUSEA, ABD PAIN, 7 WEEKS Arrival Time: 03/21/2023 12:26:18 Primary Care Physician: Caden Lauren MD Attending Physician: Armando Nieto DO Comment: Visit Diagnosis: Diagnoses This Visit Abdominal pain - ([id number]) Abdominal with intrauterine (O00.01) Nausea ([id number] g) Nausea and vomiting in (O21.9) The Pharmacy at [facility] is open Thursday through Thursday from 9A [...] alcohol and/or drug addiction problems; contact the [facility] 02/02 Crisis Hotline -Text [phone] ag [phone]. If you received any narcotics, sedation, or [...] documents With: Address: When: Caden Lauren MD [facility] [address] [address] Within 3 to 5 days Medication Information: The exam and treatment you received today in the [facility] Emergency Department were for an urgent problem and are not intended as complete care. It is important for you to follow up with a doctor, nurse practitioner, or physician?s assistant director for ongoing care. If your symptoms become [...] so we can reach you if necessary. [facility] Emergency Department has provided you with a complete list of medications post discharge. Please inform your data management/provider of your visit and for further instruction on these medications. Any specific questions regarding your chronic medications and dosages should be discussed with your primary care physician(s) and/or pharmacist. New Medications [facility] [id number], [address] [place], [place] [id number], [phone] ondansetron (ondansetron 4 mg oral tablet) 1 [...] Have cracked (more content not included)... Normal [facility] Extra [facility] 03-21-2023 Tube Collected Yes Invalid Interpretation Code [facility] Comment on above: Performed By: #### 7 411442, 7354571456, 0617210, 77708928, 4322981012, 4082675518, [id number] #### [facility] (DEFAULT) [address] [place] [address] Performed By: #### 7 363162, [id number], 4758850, 31978146, 9055577859, 8257651189, [id number] ####[facility] (DEFAULT)[address] [place] [address] RhIG.on 03-21-2023 RhIG. No. Vials RhI RhIG Candidate?: No Date to Give: [id number] RhIG Status: NA [facility] Comment on above: Performed By: #### 1 [id number] ####[facility] (DEFAULT)[address] [place] [address] UA w Culture if Ind Standard on 03-21-2023 Breakpoint UA [facility] Comment on above: Performed By: #### 1 [id number] ####[facility] (DEFAULT)[address] [place] [address] Color (U) Yellow [facility] Comment on above: Performed By: #### 1 [id number] ####[facility] (DEFAULT)[address] [place] [address] Culture? Not Indicated Invalid Interpretation Code [facility] Comment on above: Result Comment: Resu lt created by rule GL_MAGR_ADD_UA_CULT1 Performed By: #### 1 [id number] ####[facility] (DEFAULT)[address] [place] [address] Glucose (U) [Mass/Vol] Negative [facility] Comment on above: Performed By: #### 1 [id number] ####[facility] (DEFAULT)[address] [place] [address] Ketones Ql (U) Negative [facility] Comment on above: Performed By: #### 1 [id number] ####[facility] (DEFAULT)[address] [place] [address] Micro? Not Indicated Invalid Interpretation Code [facility] Comment on above: Result Comment: Resu lt created by rule GL_MAGR_ADD_UA_MICRO Performed By: #### 1 [id number] ####[facility] (DEFAULT)[address] [place] [address] UA Bilirubin Negative [facility] Comment on above: Performed By: #### 1 [id number] ####[facility] (DEFAULT)[address] [place] [address] UA Blood Negative Normal NEGATIVE [facility] Comment on above: Performed By: #### 1 [id number] ####[facility] (DEFAULT)[address] [place] [address] UA Clarity CLEAR Normal CLEAR [facility] Comment on above: Performed By: #### 1 [id number] ####[facility] (DEFAULT)[address] [place] [address] UA Leuk Est Negative Normal NEGATIVE [facility] Comment on above: Performed By: #### 1 [id number] ####[facility] (DEFAULT)[address] [place] [address] UA Nitrite Negative Normal NEGATIVE [facility] Comment on above: Performed By: #### 1 [id number] ####[facility] (DEFAULT)[address] [place] [address] UA pH 6.5 Normal 5-8 [facility] Comment on above: Performed By: #### 1 [id number] ####[facility] (DEFAULT)[address] [place] [address] UA Protein Negative Normal NEGATIVE [facility] Comment on above: Performed By: #### 1 [id number] ####[facility] (DEFAULT)[address] [place] [id number] UA Spec Grav <=1.005 Normal 1.001-1.035 [facility] Comment on above: Performed By: #### 1 [id number] ####[facility] (DEFAULT)[address] [place] [address]287 UA Urobilinogen 0.2 mg/dL Normal 0.2-1.0 [facility] Comment on above: Performed By: #### 1 [id number] ####[facility] (DEFAULT)[address] [place] [address]144 Urine Source Clean Catch Normal [facility] Comment on above: Performed By: #### 1 [id number] ####[facility] (DEFAULT)[address] [place] [address] US 1st Trimesteron 03-21-2023 US 1st Trimester [...] Parker MD 03/22/23 10:43 a Technologist: ARTHUR [facility] US Transvaginalon 03-21-2023 US Transvaginal CLINICAL HISTORY: Left [...] MD 03/22/23 10:43 a Technologist: ARTHUR Normal [facility] hCG Quantitativeon 3 hCG Quantitative 852421.0 mIU/mL High 0.0-0.6 [facility] Comment on above: Result Comment: Post -Menopausal Reference Range is: 0.1-11.6 mIU/mL Performed By: #### 7 [id number], [id number], [id number], [id number], [id number] ####[facility] (DEFAULT)[address] [place] [address] CBC AUTO DIFFon 04-12-2020 Basophils (Bld) [#/Vol] 0.0 103/ul Normal 0.0-0.[address] [facility] Comment on above: Performed By: #### T NS #### [facility] [address] [place], [place] [address] Mikal Dempsey Basophils/100 WBC (Bld) 0.4 % Normal 0.2-2.0 [facility] Comment on above: Performed By: #### T NS #### [facility] [address] [place] [address] Mikal Roselyn Eosinophils (Bld) [#/Vol] 0.1 103/ul Normal 0.0-0.[address] [facility] Comment on above: Performed By: #### T NS #### [facility] [address] [place] [address] Mikal Roselny Eosinophils/100 WBC (Bld) 0.7 % Critically low 0.9-7.0 [facility] Comment on above: Performed By: #### T NS #### [facility] [address] [place] [address] Mikal Roselyn Erythrocyte distribution width (RBC) [Ratio] 13.4 % Normal 11.0-15.[address] [facility] Comment on above: Performed By: #### T NS #### [facility] [address] [place] [address] Mikal Roselyn Hematocrit (Bld) [Volume fraction] 34.1 % Critically low 36.0-48.0 [facility] Comment on above: Performed By: #### T NS #### [facility] [address] [place] [address] Mikal Roselyn Hemoglobin (Bld) [Mass/Vol] 10.9 g/dL Critically low 12.0-16.0 [facility] Comment on above: Performed By: #### T NS #### [facility] [address] [place] [address] Mikal Roselyn IG # 0.05 10e3/ul Critically high 0.00-0.03 [facility] Comment on above: Performed By: #### T NS #### [facility] [address] [place] [address] Mikal Roselyn IG % 0.5 % Normal 0.0-0.[address] [facility] Comment on above: Performed By: #### T NS #### [facility] [address] [place] [address] Mikal Roselyn Lymphocytes (Bld) [#/Vol] 2.4 103/ul Normal 1.2-3.[address] [facility] Comment on above: Performed By: #### T NS #### [facility] [address] [id number] Mikalrena Dempsey Lymphocytes/100 WBC (Bld) 22.5 % Normal 20.5-60.[address] [facility] Comment on above: Performed By: #### T NS #### [facility] [address] [place], [place] [id number] Mikal Dempsey MANUAL DIFF REQ NO Normal [facility] Comment on above: Performed By: #### T NS #### [facility] [address] [id number] Mikalrena Dempsey MCH (RBC) [Entitic mass] 27.7 pg Normal 26.7-34.[address] [facility] Comment on above: Performed By: #### T NS #### [facility] [address] [place], [place] [id number] Mikalrena Dempsey MCHC (RBC) [Mass/Vol] 32.0 g/dL Normal 29.9-35.[address] [facility] Comment on above: Performed By: #### T NS #### [facility] [address] [place], [place] [id number] Mikalrena Dempsey MCV (RBC) [Entitic vol] 86.5 fL Normal 81.0-99.[address] [facility] Comment on above: Performed By: #### T NS #### [facility] [address] [place], [place] [id number] Mikal Roselyn Monocytes (Bld) [#/Vol] 1.4 103/ul Critically high 0.3-0.[address] [facility] Comment on above: Performed By: #### T NS #### [facility] [address] [place], [place] [id number] Mikalrena Dempsey Monocytes/100 WBC (Bld) 12.4 % Critically high 1.7-12.[address] [facility] Comment on above: Performed By: #### T NS #### [facility] [address] [place], [place] [id number] Mikal Roselyn Neutrophils (Bld) [#/Vol] 6.9 103/ul Critically high 1.4-6.[address] [facility] Comment on above: Performed By: #### T NS #### [facility] [address] [place] [address] Mikal Roselyn Neutrophils/100 WBC (Bld) 63.5 % Normal 43.0-75.0 [facility] Comment on above: Performed By: #### T NS #### [facility] [address] [place] [address] Mikal Roselyn Platelet mean volume (Bld) [Entitic vol] 9.9 fL Normal 9.5-13.5 [facility] Comment on above: Performed By: #### T NS #### [facility] [address] [place] [address] Mikal Roselyn Platelets (Bld) [#/Vol] 194 103/ul Normal 150-[address] [facility] Comment on above: Performed By: #### T NS #### [facility] [address] [place], [place] [id number] Mikal Roselyn RBC (Bld) [#/Vol] 3.94 106/ul Critically low 4.20-5.40 [facility] Comment on above: Performed By: #### T NS #### [facility] [address] [place] [address] Mikal Roselyn WBC (Bld) [#/Vol] 10.9 103/ul Normal 4.0-11.0 [facility] Comment on above: Performed By: #### T NS #### [facility] [address] [place] [address] Mikal Roselyn CBC AUTO DIFFon 04-10-2020 Basophils (Bld) [#/Vol] 0.0 103/ul Normal 0.0-0.1 [facility] Comment on above: Performed By: #### A 1C #### [facility] [address] [place] [address] Mikal Roselyn Basophils/100 WBC (Bld) 0.2 % Normal 0.2-2.0 [facility] Comment on above: Performed By: #### A 1C #### [facility] [address] [place] [address] Mikal Roselyn Eosinophils (Bld) [#/Vol] 0.0 103/ul Normal 0.0-0.7 [facility] Comment on above: Performed By: #### A 1C #### [facility] [address] [id number] Mikal Roselyn Eosinophils/100 WBC (Bld) 0.2 % Critically low 0.9-7.0 [facility] Comment on above: Performed By: #### A 1C #### [facility] [address] [id number] Mikal Roselyn Erythrocyte distribution width (RBC) [Ratio] 13.3 % Normal 11.0-15.0 [facility] Comment on above: Performed By: #### A 1C #### [facility] [address] [place], [place] [id number] Mikal Roselyn Hematocrit (Bld) [Volume fraction] 34.8 % Critically low 36.0-48.0 [facility] Comment on above: Performed By: #### A 1C #### [facility] [address] [place] [address] Mikal Roselyn Hemoglobin (Bld) [Mass/Vol] 11.4 g/dL Critically low 12.0-16.0 [facility] Comment on above: Performed By: #### A 1C #### [facility] [address] [place], [place] [id number] Mikal Roselyn IG # 0.04 10e3/ul Critically high 0.00-0.03 [facility] Comment on above: Performed By: #### A 1C #### [facility] [address] [place], [place] [id number] Mikal Roselyn IG % 0.5 % Normal 0.0-0.5 [facility] Comment on above: Performed By: #### A 1C #### [facility] [address] [place], [place] [id number] Mikal Roselyn Lymphocytes (Bld) [#/Vol] 1.4 103/ul Normal 1.2-3.[address] [facility] Comment on above: Performed By: #### A 1C #### [facility] [address] [place], [place] [id number] Mikal Roselyn Lymphocytes/100 WBC (Bld) 16.3 % Critically low 20.5-60.0 [facility] Comment on above: Performed By: #### A 1C #### [facility] [address] [place], [place] [address] Mikal Roselyn MANUAL DIFF REQ NO Normal [facility] Comment on above: Performed By: #### A 1C #### [facility] [address] [place], [place] [address] Mikal Roselyn MCH (RBC) [Entitic mass] 27.7 pg Normal 26.7-34.0 [facility] Comment on above: Performed By: #### A 1C #### [facility] [address] [place], [place] [address] Mikal Roselyn MCHC (RBC) [Mass/Vol] 32.8 g/dL Normal 29.9-35.[address] [facility] Comment on above: Performed By: #### A 1C #### [facility] [address] [place] [address] Mikal Roselyn MCV (RBC) [Entitic vol] 84.5 fL Normal 81.0-99.0 [facility] Comment on above: Performed By: #### A 1C #### [facility] [address] [place], [place] [address] Mikal Roselyn Monocytes (Bld) [#/Vol] 1.1 103/ul Critically high 0.3-0.8 [facility] Comment on above: Performed By: #### A 1C #### [facility] [address] [place] [address] Mikal Roselyn Monocytes/100 WBC (Bld) 12.6 % Critically high 1.7-12.0 [facility] Comment on above: Performed By: #### A 1C #### [facility] [address] [place], [place] [address] Mikal Roselyn Neutrophils (Bld) [#/Vol] 6.1 103/ul Normal 1.4-6.[address] [facility] Comment on above: Performed By: #### A 1C #### [facility] [address] [place], [place] [address] Mikal Roselyn Neutrophils/100 WBC (Bld) 70.2 % Normal 43.0-75.[address] [facility] Comment on above: Performed By: #### A 1C #### [facility] [address] [place] [address] Mikalrena Dempsey Platelet mean volume (Bld) [Entitic vol] 10.3 fL Normal 9.5-13.5 [facility] Comment on above: Performed By: #### A 1C #### [facility] [address] [place] [address] Mikal Roselyn Platelets (Bld) [#/Vol] 232 103/ul Normal 150-450 [facility] Comment on above: Performed By: #### A 1C #### [facility] [address] [place] [address] Mikal Roselyn RBC (Bld) [#/Vol] 4.12 106/ul Critically low 4.20-5.40 [facility] Comment on above: Performed By: #### A 1C #### [facility] [address] [place] [address] Mikal Roselyn WBC (Bld) [#/Vol] 8.7 103/ul Normal 4.0-11.0 [facility] Comment on above: Performed By: #### A 1C #### [facility] [address] [place] [address] Mikal Dempsey DRUG SCREEN RAPID (URINE)on 04-10-2020 AMP Negative Normal NEGATIVE [facility] Comment on above: Performed By: #### A 1C #### [facility] [address] [place] [address] Mikal Roselyn BAR Negative Normal NEGATIVE [facility] Comment on above: Performed By: #### A 1C #### [facility] [address] [place] [address] Mikal Roselyn BUP Negative Normal NEGATIVE [facility] Comment on above: Performed By: #### A 1C #### [facility] [address] [place] [address] Mikal Roselyn BZO Negative Normal NEGATIVE [facility] Comment on above: Performed By: #### A 1C #### [facility] [address] [place] [address] Mikal Roselyn MADDY Negative Normal NEGATIVE [facility] Comment on above: Performed By: #### A 1C #### [facility] [address] [place] [address] Mikal Dempsey CUT-OFFS SEE BELOW Normal [facility] Comment on above: Result Comment: AMP (Amphetamine): [...] ng/mL Performed By: #### A 1C #### [facility] [address] [place] [address] Mikal Roselyn DRUG CUT HEADER DRUG CLASS TEST SYST EM CUT-OFF CONCENTRATIONS ARE FOLLOWS: Normal [facility] Comment on above: Performed By: #### A 1C #### [facility] [address] [place] [address] Mikalrena Dempsey mAMP Negative Normal NEGATIVE [facility] Comment on above: Performed By: #### A 1C #### [facility] [address] [place] [address] Mikal Roselyn MTD Negative Normal NEGATIVE [facility] Comment on above: Performed By: #### A 1C #### [facility] [address] [place] [address] Mikal Roselyn OPI Negative Normal NEGATIVE [facility] Comment on above: Performed By: #### A 1C #### [facility] [address] [place] [address] Mikal Roselyn OXY Negative Normal NEGATIVE [facility] Comment on above: Performed By: #### A 1C #### [facility] [address] [place] [address] Mikal Roselyn PCP Negative Normal NEGATIVE [facility] Comment on above: Performed By: #### A 1C #### [facility] [address] [place] [address] Mikal Roselyn PPX Negative Normal NEGATIVE [facility] Comment on above: Performed By: #### A 1C #### [facility] [address] [place] [address] Mikal Roselyn TCA Negative Normal NEGATIVE [facility] Comment on above: Performed By: #### A 1C #### [facility] [address] [place] [address] Mikal Roselyn THC Negative Normal NEGATIVE [facility] Comment on above: Performed By: #### A 1C #### [facility] [address] [place] [address] Mikal Roselyn TYPE AND SCREENon 04-10-2020 TYPE AND SCREEN Negative Normal [facility] Comment on above: Performed By: #### A 1C #### [facility] [address] [place] [address] Mikal Roselyn COVID-19 PCRon 04-06-2020 SARS-CoV-2, [facility] Not Detected Normal Not Detected [facility] Comment on above: Result Comment: This nucleic acid amplification test was developed and its performance characteristics determined by [employer]. Nucleic acid amplification tests include PCR and [...] assay. Performed By: #### A 1C #### [facility] [address] [place] [address] Mikal Roselyn DRUG SCREEN RAPID (URINE)on 04-05-2020 AMP Negative Normal NEGATIVE [facility] Comment on above: Performed By: #### A 1C #### [facility] [address] [place] [address] Mikal Roselyn BAR Negative Normal NEGATIVE [facility] Comment on above: Performed By: #### A 1C #### [facility] [address] [place] [address] Mikal Roselyn BUP Negative Normal NEGATIVE [facility] Comment on above: Performed By: #### A 1C #### [facility] [address] [place] [address] [facility] B[facility] Normal NEGATIVE [facility] Comment on above: Performed By: #### A 1C #### [facility] [address] [place] [address] Mikal Roselyn MADDY Negative Normal NEGATIVE [facility] Comment on above: Performed By: #### A 1C #### [facility] [address] [place] [address] Mikal Roselyn CUT-OFFS SEE BELOW Normal [facility] Comment on above: Result Comment: AMP (Amphetamine): [...] ng/mL Performed By: #### A 1C #### [facility] [address] [place] [address] [facility] DRUG CLASS TEST SYST EM CUT-OFF CONCENTRATIONS ARE FOLLOWS: Normal [facility] Comment on above: Performed By: #### A 1C #### [facility] [address] [address] Mikal Roselyn mAMP Negative Normal NEGATIVE [facility] Comment on above: Performed By: #### A 1C #### [facility] [address] [place] [address] Mikal Roselyn MTD Negative Normal NEGATIVE [facility] Comment on above: Performed By: #### A 1C #### [facility] [address] [place] [address] Mikal Roselyn OPI Negative Normal NEGATIVE [facility] Comment on above: Performed By: #### A 1C #### [facility] [address] [place] [address] Mikal Roselyn OXY Negative Normal NEGATIVE [facility] Comment on above: Performed By: #### A 1C #### [facility] [address] [place] [address] Mikal Roselyn PCP Negative Normal NEGATIVE [facility] Comment on above: Performed By: #### A 1C #### [facility] [address] [place] [address] Mikal Roselyn PPX Negative Normal NEGATIVE [facility] Comment on above: Performed By: #### A 1C #### [facility] [address] [place] [address] Mikal Roselyn TCA Negative Normal NEGATIVE [facility] Comment on above: Performed By: #### A 1C #### [facility] [address] [place] [address] Mikal Roselyn THC Negative Normal NEGATIVE [facility] Comment on above: Performed By: #### A 1C #### [facility] [address] [place] [address] Mikal Roselyn US PREG BIOPHY W NON [...] LEFTY GALE Date: 2020-04-03 13:48 Normal [address] [facility] US PREG BIOPHY W NON STRESSo [...] VANCE DING Date: 2020-03-27 13:51 Normal [address] [facility] CHLAMYDIA/GONOCOCCUS [facility] ( AB/URINE/PAPon 03-23-2020 Chlamydia trachomatis, [facility]CO Negative Normal Negative [facility] Comment on above: Performed By: #### A 1C #### [facility] [address] [address] Mikal Dempsey Neisseria gonorrhoeae, MAYCO Negative Normal Negative [facility] Comment on above: Performed By: #### A 1C #### [facility] [address] [place], [place] [address] Mikal Dempsey PREG BIOPHY W NON STRESSo [...] FARRUKH PARK Date: 2020-03-22 02:34 Normal [facility] GROUP B STREP CULTUREon S. agalactiae Ag Ql (Unsp spec) Culture Observations: Negative for Group B Streptococcus. Normal [facility] Comment on above: Performed By: #### A 1C #### [facility] [address] [place] [address] Mikal Dempsey PREG GROWTHon 03-12-2020 PREG GROWTH [...] LEFTY GALE Date: 2020-03-12 09:32 Normal [facility] COVID-19 PCRon 02-24-2020 SARS-CoV-2, [facility] Not Detected Normal Not Detected [facility] Comment on above: Result Comment: This test was developed and its performance characteristics determined by [employer]. This test has not been FDA cleared [...] assay. Performed By: #### P REGQNT #### [facility] [address] [place] [address] Mikal Roselyn CBC AUTO DIFFon 02-18-2020 Basophils (Bld) [#/Vol] 0.0 103/ul Normal 0.0-0.1 [facility] Comment on above: Performed By: #### P REGQNT #### [facility] [address] [place] [address] Imkal Roselyn Basophils/100 WBC (Bld) 0.2 % Normal 0.2-2.0 [facility] Comment on above: Performed By: #### P REGQNT #### [facility] [address] [place] [address] Mikal Roselyn Eosinophils (Bld) [#/Vol] 0.0 103/ul Normal 0.0-0.7 [facility] Comment on above: Performed By: #### P REGQNT #### [facility] [address] [place] [address] Mikal Roselyn Eosinophils/100 WBC (Bld) 0.3 % Critically low 0.9-7.0 [facility] Comment on above: Performed By: #### P REGQNT #### [facility] [address] [place] [address] Mikal Roselyn Erythrocyte distribution width (RBC) [Ratio] 13.0 % Normal 11.0-15.0 [facility] Comment on above: Performed By: #### P REGQNT #### [facility] [address] [place] [address] Mikal Roselyn Hematocrit (Bld) [Volume fraction] 36.3 % Normal 36.0-48.[address] [facility] Comment on above: Performed By: #### P REGQNT #### [facility] [address] [place] [address] Mikal Roselyn Hemoglobin (Bld) [Mass/Vol] 11.9 g/dL Critically low 12.0-16.0 [facility] Comment on above: Performed By: #### P REGQNT #### [facility] [address] [place] [address] Mikal Roselyn IG # 0.04 10e3/ul Critically high 0.00-0.03 [facility] Comment on above: Performed By: #### P REGQNT #### [facility] [address] [place] [address] Mikal Roselyn IG % 0.5 % Normal 0.0-0.5 [facility] Comment on above: Performed By: #### P REGQNT #### [facility] [address] [place] [address] Mikal Roselyn Lymphocytes (Bld) [#/Vol] 1.6 103/ul Normal 1.2-3.[address] [facility] Comment on above: Performed By: #### P REGQNT #### [facility] [address] [place] [address] Mikal Roselyn Lymphocytes/100 WBC (Bld) 18.9 % Critically low 20.5-60.[address] [facility] Comment on above: Performed By: #### P REGQNT #### [facility] [address] [place], [place] [address] Mikal Roselyn MANUAL DIFF REQ NO Normal [facility] Comment on above: Performed By: #### P REGQNT #### [facility] [address] [place], [place] [address] Mikal Roselyn MCH (RBC) [Entitic mass] 29.5 pg Normal 26.7-34.[address] [facility] Comment on above: Performed By: #### P REGQNT #### [facility] [address] [place], [place] [id number] Mikal Roselyn MCHC (RBC) [Mass/Vol] 32.8 g/dL Normal 29.9-35.[address] [facility] Comment on above: Performed By: #### P REGQNT #### [facility] [address] [place], [place] [id number] Mikal Roselyn MCV (RBC) [Entitic vol] 90.1 fL Normal 81.0-99.[address] [facility] Comment on above: Performed By: #### P REGQNT #### [facility] [address] [place], [place] [id number] Mikal Roselyn Monocytes (Bld) [#/Vol] 1.1 103/ul Critically high 0.3-0.[address] [facility] Comment on above: Performed By: #### P REGQNT #### [facility] [address] [place], [place] [id number] Mikal Roselyn Monocytes/100 WBC (Bld) 12.6 % Critically high 1.7-12.0 [facility] Comment on above: Performed By: #### P REGQNT #### [facility] [address] [place], [place] [id number] Mikal Roselyn Neutrophils (Bld) [#/Vol] 5.8 103/ul Normal 1.4-6.[address] [facility] Comment on above: Performed By: #### P REGQNT #### [facility] [address] [place], [place] [id number] Mikal Roselyn Neutrophils/100 WBC (Bld) 67.5 % Normal 43.0-75.[address] [facility] Comment on above: Performed By: #### P REGQNT #### [facility] [address] [place], [place] [address] Mikal Dempsey Platelet mean volume (Bld) [Entitic vol] 9.6 fL Normal 9.5-13.5 [facility] Comment on above: Performed By: #### P REGQNT #### [facility] [address] [place], [place] [id number] Mikal Dempsey Platelets (Bld) [#/Vol] 204 103/ul Normal 150-450 [facility] Comment on above: Performed By: #### P REGQNT #### [facility] [address] [place], [place] [id number] Mikal Dempsey RBC (Bld) [#/Vol] 4.03 106/ul Critically low 4.20-5.40 [facility] Comment on above: Performed By: #### P REGQNT #### [facility] [address] [place], [place] [id number] Mikal Dempsey WBC (Bld) [#/Vol] 8.6 103/ul Normal 4.0-11.0 [facility] Comment on above: Performed By: #### P REGQNT #### [facility] [address] [place], [place] [id number] Mikal Dempsey CULTURE URINEon 02-18-2020 CULTURE URINE Culture Observations : NORMAL GENITAL SIERRA. NO POTENTIAL PATHOGENS SEEN. Normal [facility] Comment on above: Performed By: #### P REGQNT #### [facility] [address] [place], [place] [id number] Mikal Dempsey LDHon 02-18-2020 LDH 142 U/L Normal 122-222 [facility] Comment on above: Performed By: #### P REGQNT #### [facility] [address] [place], [place] [id number] Mikal Dempsey PROF 14(COMP METB)on 020 Albumin [Mass/Vol] 2.5 g/dL Critically low 3.5-5.0 [facility] Comment on above: Performed By: #### P REGQNT #### [facility] [address] [place], [place] [id number] Mikal Roselyn Albumin/Globulin [Mass ratio] 0.7 {ratio} Normal [facility] Comment on above: Performed By: #### P REGQNT #### [facility] [address] [place] [address] Mikal Roselyn ALP [Catalytic activity/Vol] 107 U/L Normal 38-126 [facility] Comment on above: Performed By: #### P REGQNT #### [facility] [address] [place] [address] Mikal Roselyn ALT [Catalytic activity/Vol] 16 U/L Normal 9-52 [facility] Comment on above: Performed By: #### P REGQNT #### [facility] [address] [place] [address] Mikal Roselyn Anion gap [Moles/Vol] 12.1 mmol/L Normal [facility] Comment on above: Performed By: #### P REGQNT #### [facility] [address] [place] [address] Mikal Roselyn AST [Catalytic activity/Vol] 10 U/L Critically low 14-36 [facility] Comment on above: Performed By: #### P REGQNT #### [facility] [address] [place] [address] Mikal Roselyn Bilirubin Ql (U) 0.3 mg/dL Normal 0.2-1.3 [facility] Comment on above: Performed By: #### P REGQNT #### [facility] [address] [place] [address] Mikal Roselyn Calcium [Mass/Vol] 8.6 mg/dL Normal 8.4-10.2 [facility] Comment on above: Performed By: #### P REGQNT #### [facility] [address] [place] [address] Mikal Roselyn Chloride [Moles/Vol] 103 mmol/L Normal 98-[address] [facility] Comment on above: Performed By: #### P REGQNT #### [facility] [address] [place] [address] Mikal Roselyn CO2 [Moles/Vol] 24.1 mmol/L Normal 22.0-30.0 [facility] Comment on above: Performed By: #### P REGQNT #### [facility] [address] [place] [id number] Mikal Roselyn Creatinine [Mass/Vol] 0.52 mg/dL Normal 0.52-1.04 [facility] Comment on above: Performed By: #### P REGQNT #### [facility] [address] [place] [id number] Mikal Roselyn EGFR-AF LAO >60 Normal >=60 [facility] Comment on above: Performed By: #### P REGQNT #### [facility] [address] [place] [id number] Mikal Roselyn EGFR-NON AF LAO >60 Normal >=60 [facility] Comment on above: Performed By: #### P REGQNT #### [facility] [address] [place] [address] Mikal Roselyn Globulin (S) [Mass/Vol] 3.7 g/dL Normal [facility] Comment on above: Performed By: #### P REGQNT #### [facility] [address] [place] [address] Mikal Roselyn Glucose [Mass/Vol] 75 mg/dL Normal 74-106 [facility] Comment on above: Performed By: #### P REGQNT #### [facility] [address] [place] [address] Mikal Roselyn Potassium [Moles/Vol] 4.2 mmol/L Normal 3.4-5.0 [facility] Comment on above: Performed By: #### P REGQNT #### [facility] [address] [place], [place] [id number] Mikal Roselyn Protein [Mass/Vol] 6.2 g/dL Normal 6.1-8.2 [facility] Comment on above: Performed By: #### P REGQNT #### [facility] [address] [place] [address] Mikal Roselyn Sodium [Moles/Vol] 135 mmol/L Critically low 137-145 Th [facility] Comment on above: Performed By: #### P REGQNT #### [facility] [address] [place] [address] Mikal Roselyn Urea nitrogen [Mass/Vol] 3.0 mg/dL Critically low 7.0-17.0 [facility] Comment on above: Performed By: #### P REGQNT #### [facility] [address] [place] [address] Mikal Roselyn Urea nitrogen/Creatinine [Mass ratio] 5.8 mg/mg Normal [facility] Comment on above: Performed By: #### P REGQNT #### [facility] [address] [place] [address] Mikal Roselyn UA (CLEAN/CATCH) [facility]/MICRO I F IND.on 02-18-2020 Bilirubin [Mass/Vol] Negative Normal NEGATIVE [facility] Comment on above: Performed By: #### P REGQNT #### [facility] [address] [place] [address] Mikal Roselyn BLOOD Negative Normal NEGATIVE [facility] Comment on above: Performed By: #### P REGQNT #### [facility] [address] [place] [address] Mikal Roselyn Clarity (U) SL CLOUDY Normal [facility] Comment on above: Performed By: #### P REGQNT #### [facility] [address] [place] [address] Mikal Roselyn Color (U) LT. YELLOW Normal YELLOW [facility] Comment on above: Performed By: #### P REGQNT #### [facility] [address] [place] [address] Mikal Roselyn Glucose [Mass/Vol] Negative Normal NEGATIVE [facility] Comment on above: Performed By: #### P REGQNT #### [facility] [address] [place] [address] Mikal Roselyn Ketones Ql (U) Negative Normal NEGATIVE [facility] Comment on above: Performed By: #### P REGQNT #### [facility] [address] [place] [address] Mikal Roselyn Nitrite Ql (U) Negative Normal NEGATIVE [facility] Comment on above: Performed By: #### P REGQNT #### [facility] [address] [place], [place] [id number] Mikal Dempsey pH (Bld) 6.5 Normal 5-9 [facility] Comment on above: Performed By: #### P REGQNT #### [facility] [address] [place] [id number] Mikal Dempsey Protein [Mass/Vol] Negative Normal [facility] Comment on above: Performed By: #### P REGQNT #### [facility] [address] [place] [id number] Mikal Dempsey SPEC GRAVITY 1.025 Normal 1.005-<=1.025 [facility] Comment on above: Performed By: #### P REGQNT #### [facility] [address] [place] [address] Mikal Dempsey UR MICRO IND INDICATED Normal [facility] Comment on above: Performed By: #### P REGQNT #### [facility] [address] [place] [address] Mikal Dempsey Urobilinogen Qn (U) 1.0 EU/dl Normal [facility] Comment on above: Performed By: #### P REGQNT #### [facility] [address] [place], [place] [id number] Mikal Dempsey WBC (Bld) [#/Vol] SMALL Normal NEGATIVE [facility] Comment on above: Performed By: #### P REGQNT #### [facility] [address] [place], [place] [id number] Mikal Dempsey URIC ACID SERUMon 02-18-2020 Urate [Mass/Vol] 3.1 mg/dL Normal 2.5-6.2 [facility] Comment on above: Performed By: #### P REGQNT #### [facility] [address] [place], [place] [id number] Mikal Dempsey URINE MICROSCOPIC ONLYon Bacteria LM.HPF (Urine sed) [#/Area] SMALL Normal NONE SEEN [facility] Comment on above: Performed By: #### P REGQNT #### [facility] [address] [place] [address] Mikal Roselyn CAST NONE SEEN Normal NONE SEEN [facility] Comment on above: Performed By: #### P REGQNT #### [facility] [address] [place], [place] [id number] Mikal Roselyn Crystals LM Nom (Urine sed) NONE SEEN Normal NONE SEEN [facility] Comment on above: Performed By: #### P REGQNT #### [facility] [address] [place] [address] Mikal Roselyn CULTURE INDICATED Normal [facility] Comment on above: Performed By: #### P REGQNT #### [facility] [address] [place] [address] Mikal Roselyn Epithelial cells LM.HPF (Urine sed) [#/Area] FEW Normal [facility] Comment on above: Performed By: #### P REGQNT #### [facility] [address] [place], [place] [id number] Mikal Roselyn MUCOUS SMALL Normal NONE SEEN [facility] Comment on above: Performed By: #### P REGQNT #### [facility] [address] [place], [place] [id number] Mikal Roselyn RBC (U) [#/Vol] 0-2 Normal 0-2 [facility] Comment on above: Performed By: #### P REGQNT #### [facility] [address] [place] [address] Mikal Roselyn WBC (Bld) [#/Vol] 5-10 Normal NONE SEEN [facility] Comment on above: Performed By: #### P REGQNT #### [facility] [address] [place], [place] [id number] Mikal Roselyn CBC AUTO DIFFon 01-03-2020 Basophils (Bld) [#/Vol] 0.0 103/ul Normal 0.0-0.1 [facility] Comment on above: Performed By: #### C BC #### [facility] [address] [place], [place] [id number] Mikal Roselyn Basophils/100 WBC (Bld) 0.4 % Normal 0.2-2.0 [facility] Comment on above: Performed By: #### C BC #### [facility] [address] [place], [place] [id number] Mikal Roselyn Eosinophils (Bld) [#/Vol] 0.1 103/ul Normal 0.0-0.7 [facility] Comment on above: Performed By: #### C BC #### [facility] [address] [place], [place] [id number] Mikal Roselyn Eosinophils/100 WBC (Bld) 0.7 % Critically low 0.9-7.0 [facility] Comment on above: Performed By: #### C BC #### [facility] [address] [place] [address] Mikal Roselyn Erythrocyte distribution width (RBC) [Ratio] 13.7 % Normal 11.0-15.0 [facility] Comment on above: Performed By: #### C BC #### [facility] [address] [place] [address] Mikal Roselyn Hematocrit (Bld) [Volume fraction] 37.8 % Normal 36.0-48.0 [facility] Comment on above: Performed By: #### C BC #### [facility] [address] [place], [place] [id number] Mikal Roselyn Hemoglobin (Bld) [Mass/Vol] 12.8 g/dL Normal 12.0-16.0 [facility] Comment on above: Performed By: #### C BC #### [facility] [address] [place] [address] Mikal Roselyn IG # 0.09 10e3/ul Critically high 0.00-0.03 [facility] Comment on above: Performed By: #### C BC #### [facility] [address] [place], [place] [id number] Mikal Roselyn IG % 1.2 % Critically high 0.0-0.5 [facility] Comment on above: Performed By: #### C BC #### [facility] [address] [place], [place] [id number] Mikal Roselyn Lymphocytes (Bld) [#/Vol] 1.6 103/ul Normal 1.2-3.8 [facility] Comment on above: Performed By: #### C BC #### [facility] [address] [place], [place] [id number] Mikal Roselyn Lymphocytes/100 WBC (Bld) 20.6 % Normal 20.5-60.0 [facility] Comment on above: Performed By: #### C BC #### [facility] [address] [place], [place] [id number] Mikal Roselyn MANUAL DIFF REQ NO Normal [facility] Comment on above: Performed By: #### C BC #### [facility] [address] [place], [place] [id number] Mikal Roselyn MCH (RBC) [Entitic mass] 31.4 pg Normal 26.7-34.0 [facility] Comment on above: Performed By: #### C BC #### [facility] [address] [place], [place] [id number] Mikal Roselyn MCHC (RBC) [Mass/Vol] 33.9 g/dL Normal 29.9-35.2 [facility] Comment on above: Performed By: #### C BC #### [facility] [address] [place], [place] [id number] Mikal Roselyn MCV (RBC) [Entitic vol] 92.6 fL Normal 81.0-99.0 [facility] Comment on above: Performed By: #### C BC #### [facility] [address] [place], [place] [id number] Mikal Roselyn Monocytes (Bld) [#/Vol] 0.9 103/ul Critically high 0.3-0.8 [facility] Comment on above: Performed By: #### C BC #### [facility] [address] [place], [place] [id number] Mikal Roselyn Monocytes/100 WBC (Bld) 12.0 % Normal 1.7-12.0 [facility] Comment on above: Performed By: #### C BC #### [facility] [address] [place], [place] [id number] Mikal Roselyn Neutrophils (Bld) [#/Vol] 4.9 103/ul Normal 1.4-6.5 [facility] Comment on above: Performed By: #### C BC #### [facility] [address] [place], [place] [id number] Mikal Dempsey Neutrophils/100 WBC (Bld) 65.1 % Normal 43.0-75.0 [facility] Comment on above: Performed By: #### C BC #### [facility] [address] [place], [place] [id number] Mikalrena Dempsey Platelet mean volume (Bld) [Entitic vol] 8.9 fL Critically low 9.5-13.5 [facility] Comment on above: Performed By: #### C BC #### [facility] [address] [place], [place] [id number] Mikal Dempsey Platelets (Bld) [#/Vol] 205 103/ul Normal 150-450 [facility] Comment on above: Performed By: #### C BC #### [facility] [address] [place], [place] [id number] Mikal Dempsey RBC (Bld) [#/Vol] 4.08 106/ul Critically low 4.20-5.40 Th [facility] Comment on above: Performed By: #### C BC #### [facility] [address] [place], [place] [id number] Mikalrena Dempsey WBC (Bld) [#/Vol] 7.6 103/ul Normal 4.0-11.0 [facility] Comment on above: Performed By: #### C BC #### [facility] [address] [place], [place] [id number] Mikal Dempsey GLUCOSE - 1HRon 01-03-2020 Glucose [Mass/Vol] 87 mg/dL Normal 74-106 [facility] Comment on above: Performed By: #### C BC #### [facility] [address] [place], [place] [id number] Mikalrena Dempsey US PREG ANATOMY SINGLEon US [...] by: VANCE DING Date: 2019-12-02 11:29 Normal [facility] PAP ACOG PANEL 3: 21 to 29on 10-07-2019 Age Gdln ACOG Testing 21-29 Normal [facility] Comment on above: Performed By: #### C BC #### [facility] [address] [place] [address] Mikal Dempsey Chlamydia, Nuc. Acid Amp Negative Normal Negative [facility] Comment on above: Result Comment: Perf ormed at: =G Performed By: #### C BC #### [facility] [address] [place] [address] Mikal Dempsey DIAGNOSIS: Comment Abnormal [facility] Comment on above: Result Comment: EPIT HELIAL CELL ABNORMALITY. ATYPICAL SQUAMOUS CELLS OF UNDETERMINED SIGNIFICANCE (ASC-US). Performed at: WB Performed By: #### C BC #### [facility] [address] [place] [address] Mikal Dempsey Electronically signed by: Comment Normal [facility] Comment on above: Result Comment: Aretha Cheng MD, Pathologist Performed at: WB Performed By: #### C BC #### [facility] [address] [place] [address] Mikal Dempsey Gonococcus, Nuc. Acid Amp Negative Normal Negative [facility] Comment on above: Result Comment: Perf ormed at: =G Performed By: #### C BC #### [facility] [address] [place] [address] Mikal Dempsey HPV Aptima Positive Abnormal Negative [facility] Comment on above: Result Comment: This nucleic acid amplification test detects fourteen high-risk HPV types (16,18,31,33,35,39,45,51,52,56,58,59,66,68) without differentiation. Performed By: #### C BC #### [facility] [address] [place] [address] Mikal Dempsey Methodology: Comment Normal [facility] Comment on above: Result Comment: This liquid based ThinPrep(R) pap test was screened with the use of an image guided system. Performed at: WB Performed By: #### C BC #### [facility] [address] [place] [address] Mikal Roselyn Note: Comment Normal [facility] Comment on above: Result Comment: The Pap smear is a screening test designed to aid in the detection of premalignant and malignant conditions of the uterine cervix. It is not a diagnostic procedure and should not be used as the sole means of detecting cervical cancer. Both false-positive and false-negative reports do occur. . Performed at: WB Performed By: #### C BC #### [facility] [address] [place] [address] Mikal Dempsey Pathologist Provided ICD10 Comment Normal [facility] Comment on above: Result Comment: [id number] Performed at: WB Performed By: #### C BC #### [facility] [address] [place] [address] Mikal Dempsey Performed by: Comment Normal [place] Comment on above: Result Comment: Perry Dial, Bad Credit Collector (ASCP) Performed at: WB Performed By: #### C BC #### [facility] [address] [place] [address] Mikal Dempsey Recommendation: Comment Abnormal [facility] Comment on above: Result Comment: Sugg est follow up as clinically appropriate. Performed at: WB Performed By: #### C BC #### [facility] [address] [place] [address] Mikal Roselyn Reflex Criteria: Comment Normal [facility] Comment on above: Result Comment: See below for HPV testing results. . Performed at: WB Performed By: #### C BC #### [facility] [address] Roselyn Specimen adequacy: Comment Normal [facility] Comment on above: Result Comment: Sati sfactory for evaluation. No endocervical component is identified. An endocervical component is not commonly seen in the patient. Performed at: WB Performed By: #### C BC #### [facility] [address] [place] [address] Mikal Roselyn . . Normal [facility] Comment on above: Result Comment: Perf ormed at: WB Performed By: #### C BC #### [facility] [address] [place] [address] Mikal Dempsey US PREG TVon 09-15-2019 US [...] IMPRESSION: Single live intrauterine . Normal The [facility] BUNon 09-05-2019 Urea nitrogen [Mass/Vol] 8.0 mg/dL Normal 7.0-17.[address] [facility] Comment on above: Performed By: #### Ernesto WHITE UAMIC #### [facility] [address] [place], [place] [id number] Mikal Roselyn CBC AUTO DIFFon 09-05-2019 Basophils (Bld) [#/Vol] 0.0 103/ul Normal 0.0-0.[address] [facility] Comment on above: Performed By: #### Ernesto WHITE UAMIC #### [facility] [address] [place], [place] [id number] Mikal Roselyn Basophils/100 WBC (Bld) 0.5 % Normal 0.2-2.[address] [facility] Comment on above: Performed By: #### Ernesto WHITE UAMIC #### [facility] [address] [place] [address] Mikal Roselyn Eosinophils (Bld) [#/Vol] 0.0 103/ul Normal 0.0-0.[address] [facility] Comment on above: Performed By: #### D CHRISTOPHER UAMIC #### [facility] [address] [place], [place] [id number] Mikal Roselyn Eosinophils/100 WBC (Bld) 0.2 % Critically low 0.9-7.[address] [facility] Comment on above: Performed By: #### Ernesto WHITE UAMIC #### [facility] [address] [place], [place] [id number] Mikal Roselyn Erythrocyte distribution width (RBC) [Ratio] 12.8 % Normal 11.0-15.[address] [facility] Comment on above: Performed By: #### D CHRISTOPHER UAMIC #### [facility] [address] [place], [place] [id number] Mikal Roselyn Hematocrit (Bld) [Volume fraction] 40.0 % Normal 36.0-48.[address] [facility] Comment on above: Performed By: #### Ernesto WHITE UAMIC #### [facility] [address] [place], [place] [id number] Mikal Roselyn Hemoglobin (Bld) [Mass/Vol] 13.7 g/dL Normal 12.0-16.0 [facility] Comment on above: Performed By: #### D MARLEN WHITEMIC #### [facility] [address] [place] [address] Mikal Roselyn IG # 0.01 10e3/ul Normal 0.00-0.03 [facility] Comment on above: Performed By: #### D CHRISTOPHER UAMIC #### [facility] [address] [place], [place] [id number] Mikal Roselyn IG % 0.2 % Normal 0.0-0.[address] [facility] Comment on above: Performed By: #### D MARLEN WHITEMIC #### [facility] [address] [place], [place] [id number] Mikal Roselyn Lymphocytes (Bld) [#/Vol] 1.5 103/ul Normal 1.2-3.[address] [facility] Comment on above: Performed By: #### Ernesto WHITE UAMIC #### [facility] [address] [place] [address] Mikal Roselyn Lymphocytes/100 WBC (Bld) 24.3 % Normal 20.5-60.[address] [facility] Comment on above: Performed By: #### MARLEN HIGGINSMIC #### [facility] [address] [place], [place] [id number] Mikal Roselyn MANUAL DIFF REQ NO Normal [facility] Comment on above: Performed By: #### D CHRISTOPHER UAMIC #### [facility] [address] [place], [place] [id number] Mikal Roselyn MCH (RBC) [Entitic mass] 29.8 pg Normal 26.7-34.[address] [facility] Comment on above: Performed By: #### D CHRISTOPHER UAMIC #### [facility] [address] [place], [place] [id number] Mikal Roselyn MCHC (RBC) [Mass/Vol] 34.3 g/dL Normal 29.9-35.[address] [facility] Comment on above: Performed By: #### Ernesto WHITE UAMIC #### [facility] [address] [place] [id number] Mikal Roselyn MCV (RBC) [Entitic vol] 87.1 fL Normal 81.0-99.[address] [facility] Comment on above: Performed By: #### Ernesto WHITE UAMIC #### [facility] [address] [place], [place] [id number] Mikal Roselyn Monocytes (Bld) [#/Vol] 0.7 103/ul Normal 0.3-0.[address] [facility] Comment on above: Performed By: #### Ernesto WHITE UAMIC #### [facility] [address] [place], [place] [id number] Mikal Roselyn Monocytes/100 WBC (Bld) 11.2 % Normal 1.7-12.[address] [facility] Comment on above: Performed By: #### D CHRISTOPHER UAMIC #### [facility] [address] [place], [place] [id number] Mikal Roselyn Neutrophils (Bld) [#/Vol] 4.0 103/ul Normal 1.4-6.[address] [facility] Comment on above: Performed By: #### D CHRISTOPHER UAMIC #### [facility] [address] [place], [place] [id number] Mikal Roselyn Neutrophils/100 WBC (Bld) 63.6 % Normal 43.0-75.[address] [facility] Comment on above: Performed By: #### Ernesto WHITE UAMIC #### [facility] [address] [place], [place] [id number] Mikal Roselyn Platelet mean volume (Bld) [Entitic vol] 8.9 fL Critically low 9.5-13.[address] [facility] Comment on above: Performed By: #### Ernesto WHITE UAMIC #### [facility] [address] [place], [place] [id number] Mikal Roselyn Platelets (Bld) [#/Vol] 260 103/ul Normal 150-[address] [facility] Comment on above: Performed By: #### Ernesto WHITE, UAMIC #### [facility] [address] [place], [place] [id number] Mikal Roselyn RBC (Bld) [#/Vol] 4.59 106/ul Normal 4.20-5.40 [facility] Comment on above: Performed By: #### Ernesto WHITE UAMIC #### [facility] [address] [place], [place] [id number] Mikal Dempsey WBC (Bld) [#/Vol] 6.3 103/ul Normal 4.0-11.0 [facility] Comment on above: Performed By: #### Ernesto WHITE UAMIC #### [facility] [address] [place], [place] [id number] Mikal Dempsey CREATININEon 09-05-2019 Creatinine [Mass/Vol] mg/dL Normal >=[address] [facility] Comment on above: Performed By: #### Ernesto WHITE UAMIC #### [facility] [address] [place] [address] Mikal Roselyn Creatinine [Mass/Vol] 0.65 mg/dL Normal 0.52-1.04 [facility] Comment on above: Performed By: #### Ernesto WHITE UAMIC #### [facility] [address] [place] [address] Mikal Roselyn CREATININE CLEARon 0 CREA CLEARANCE 136.03 ml/min Critically high 75.00-115.00 [facility] Comment on above: Performed By: #### Ernesto WHITE UAMIC #### [facility] [address] [place], [place] [id number] Mikal Roselyn CREA, 24 HR UR 1287.99 mg/24 hr Normal 800.00-1, 800. [address] [facility] Comment on above: Performed By: #### Ernesto WHITE UAMIC #### [facility] [address] [place], [place] [id number] Mikal Roselyn UR TOT VOL 900 ml/24 HR Normal [facility] Comment on above: Performed By: #### Ernesto WHITE UAMIC #### [facility] [address] [place] [address] Mikal Roselyn URINE CREAT 143.11 mg/dL Normal 20.00-300.00 [facility] Comment on above: Performed By: #### D CHRISTOPHER UAMIC #### [facility] [address] [place], [place] [id number] Mikal Dempsey GLUCOSE - 1HRon 09-05-2019 Glucose [Mass/Vol] 94 mg/dL Normal 74-106 [facility] Comment on above: Performed By: #### C BC #### [facility] [address] [place] [address] Mikal Dempsey LDHon 09-05-2019 LDH 137 U/L Normal 122-222 [facility] Comment on above: Performed By: #### C BC #### [facility] [address] [place] [address] Mikal Dempsey PROTEIN 24HR URINEon 020 T PROT, 24 HR UR 127.8 mg/24 hr Normal 42.0-225.0 [facility] Comment on above: Performed By: #### D CHRISTOPHER UAMIC #### [facility] [address] [place] [address] Mikal Dempsey UR PROT 14.2 mg/dL Critically high <=12.0 [facility] Comment on above: Performed By: #### D CHRISTOPHER UAMIC #### [facility] [address] [place] [address] Mikal Dempsey SGOTon 09-05-2019 AST [Catalytic activity/Vol] 14 U/L Normal 14-36 [facility] Comment on above: Performed By: #### D CHRISTOPHER UAMIC #### [facility] [address] [place] [address] Mikal Dempsey SGPTon 09-05-2019 ALT [Catalytic activity/Vol] 26 U/L Normal 9-[address] [facility] Comment on above: Performed By: #### C BC #### [facility] [address] [place] [address] Mikal Dempsey TSHon 09-05-2019 TSH Qn 0.807 uIU/mL Normal 0.470-4.680 [place] Comment on above: Performed By: #### C BC #### [facility] [address] [place] [address] Mikal Dempsey TSH Qn SEE BELOW Normal [facility] Comment on above: Result Comment: <0.3 4 UIU/ml HYPERTHYROID 0.34-5.60 UIU/ml EUTHYROID >5.60 UIU/ml HYPOTHYROID Performed By: #### C BC #### [facility] [address] [place] [address] Mikal Dempsey URIC ACID SERUMon 09-05-2019 Urate [Mass/Vol] 3.5 mg/dL Normal 2.5-6.2 [facility] Comment on above: Performed By: #### C BC #### [facility] [address] [place] [address] Mikal Dempsey HEP B SURFACE ANTIGEN SCREEN on 09-01-2019 HBsAg Screen Negative Normal Negative [facility] Comment on above: Performed By: #### H BSANS #### [facility] [address] [place] [address] Mikal Dempsey HEPATITIIS C VIRUS ANTIBODYo n 09-01-2019 Hep C Virus Ab <0.1 Normal 0.0-0.9 [facility] Comment on above: Result Comment: Nega tive: < 0.8 Indeterminate: 0.8 - 0.9 Positive: > 0.9 . The CDC recommends that a positive HCV antibody result be followed up with a HCV Nucleic Acid Amplification test (320695). Performed By: #### H CV #### [facility] [address] [place] [address] Mikal Hensleyen HGB(ELECTP) FRACTION PROFILE on 09-01-2019 Hemoglobin (Bld) [Mass/Vol] 97.5 % Normal 96.4-98.8 [facility] Comment on above: Performed By: #### D CHRISTOPHER UAMIC #### [facility] [address] [place] [address] Mikal Hensleyen Hgb A2 2.5 % Normal 1.8-3.2 [facility] Comment on above: Performed By: #### D CHRISTOPHER UAMIC #### [facility] [address] [place] [address] Mikal Hensleyen Hgb C 0.0 % Normal 0.0 [facility] Comment on above: Performed By: #### D CHRISTOPHER UAMIC #### [facility] [address] [place] [address] Mikalrena Dempsey Hgb F 0.0 % Normal 0.0-2.0 [facility] Comment on above: Performed By: #### D CHRISTOPHER, UAMIC #### [facility] [address] [place] [address] Mikalrena Dempsey Hgb S 0.0 % Normal 0.0 [facility] Comment on above: Performed By: #### D CHRISTOPHER, UAMIC #### [facility] [address] [place] [address] Mikal Roselyn Hgb Solubility Negative Normal Negative [facility] Comment on above: Performed By: #### D CHRISTOPHER UAMIC #### [facility] [address] [place] [address] Mikalrena Dempsey Hgb Variant Normal [facility] Comment on above: Performed By: #### D CHRISTOPHER UAMIC #### [facility] [address] [place] [address] Mikalrena Dempsey Interpretation Comment Normal [facility] Comment on above: Result Comment: Norm al adult hemoglobin present. Performed By: #### D CHRISTOPHER UAMIC #### [facility] [address] [place] [address] Mikal Dempsey HIV 1 AND 2 WITH REFLEXon HIV Screen 4th Generation wRfx Non Reactive Normal Non Reactive [facility] Comment on above: Performed By: #### H IV12 #### [facility] [address] [place] [address] Mikal Dempsey RPR QUANTon 09-01-2019 Rapid Plasma Reagin, Quant Non Reactive Normal NonRea<1:[address] [facility] Comment on above: Performed By: #### D CHRISTOPHER, UAMIC #### [facility] [address] [place] [address] Mikal Roselyn RUBELLA AB IGGon 09-01-2019 Rubella Antibodies, IgG 1.49 index Normal Immune >0.99 [facility] Comment on above: Result Comment: Non- immune <0.90 Equivocal 0.90 - 0.99 Immune >0.99 Performed By: #### D CAYDEN WHITE #### [facility] [address] [place] [address] Mikal Roselyn VARICELLA IGG ABon 0 Varicella Zoster IgG <135 Critically low Immune >[address] [facility] Comment on above: Result Comment: Nega tive <135 Equivocal 135 - 165 Positive >165 A positive result generally indicates exposure to the pathogen or administration of specific immunoglobulins, but it is not indication of active infection or stage of disease. Performed By: #### D CAYDEN WHITE #### [facility] [address] [place] [address] Mikal Roselyn TYPE AND SCREENon 08-31-2019 TYPE AND SCREEN Negative Normal [facility] Comment on above: Performed By: #### T NS #### [facility] [address] [place] [address] Mikal Roselyn CBC AUTO DIFFon 08-30-2019 Basophils (Bld) [#/Vol] 0.1 103/ul Normal 0.0-0.1 [facility] Comment on above: Performed By: #### C BC #### [facility] [address] [place] [address] Mikal Roselyn Basophils/100 WBC (Bld) 0.7 % Normal 0.2-2.0 [facility] Comment on above: Performed By: #### C BC #### [facility] [address] [place] [address] Mikal Roselyn Eosinophils (Bld) [#/Vol] 0.0 103/ul Normal 0.0-0.[address] [facility] Comment on above: Performed By: #### C BC #### [facility] [address] [place], [place] [id number] Mikal Roselyn Eosinophils/100 WBC (Bld) 0.3 % Critically low 0.9-7.0 [facility] Comment on above: Performed By: #### C BC #### [facility] [address] [place] [address] Mikal Roselyn Erythrocyte distribution width (RBC) [Ratio] 13.2 % Normal 11.0-15.0 [facility] Comment on above: Performed By: #### C BC #### [facility] [address] [place] [address] Mikalrena Dempsey Hematocrit (Bld) [Volume fraction] 43.0 % Normal 36.0-48.0 [facility] Comment on above: Performed By: #### C BC #### [facility] [address] [place] [address] Mikal Roselyn Hemoglobin (Bld) [Mass/Vol] 14.1 g/dL Normal 12.0-16.0 [facility] Comment on above: Performed By: #### C BC #### [facility] [address] [place] [address] Mikalrena Hensleyen IG # 0.02 10e3/ul Normal 0.00-0.03 [facility] Comment on above: Performed By: #### C BC #### [facility] [address] [place] [address] Mikal Roselyn IG % 0.3 % Normal 0.0-0.5 [facility] Comment on above: Performed By: #### C BC #### [facility] [address] [place] [address] Mikal Roselyn Lymphocytes (Bld) [#/Vol] 1.7 103/ul Normal 1.2-3.8 [facility] Comment on above: Performed By: #### C BC #### [facility] [address] [place] [address] Mikal Dempsey Lymphocytes/100 WBC (Bld) 23.4 % Normal 20.5-60.[address] [facility] Comment on above: Performed By: #### C BC #### [facility] [address] [place], [place] [id number] Mikal Dempsey MANUAL DIFF REQ NO Normal [facility] Comment on above: Performed By: #### C BC #### [facility] [address] [place] [address] Mikal Dempsey MCH (RBC) [Entitic mass] 29.3 pg Normal 26.7-34.0 [facility] Comment on above: Performed By: #### C BC #### [facility] [address] [place], [place] [id number] Mikal Roselyn MCHC (RBC) [Mass/Vol] 32.8 g/dL Normal 29.9-35.[address] [facility] Comment on above: Performed By: #### C BC #### [facility] [address] [place], [place] [id number] Mikal Roselyn MCV (RBC) [Entitic vol] 89.4 fL Normal 81.0-99.[address] [facility] Comment on above: Performed By: #### C BC #### [facility] [address] [place], [place] [id number] Mikal Roselyn Monocytes (Bld) [#/Vol] 0.6 103/ul Normal 0.3-0.[address] [facility] Comment on above: Performed By: #### C BC #### [facility] [address] [place], [place] [id number] Mikal Roselyn Monocytes/100 WBC (Bld) 8.6 % Normal 1.7-12.0 [facility] Comment on above: Performed By: #### C BC #### [facility] [address] [place], [place] [id number] Mikal Roselyn Neutrophils (Bld) [#/Vol] 4.9 103/ul Normal 1.4-6.[address] [facility] Comment on above: Performed By: #### C BC #### [facility] [address] [place], [place] [id number] Mikal Roselyn Neutrophils/100 WBC (Bld) 66.7 % Normal 43.0-75.[address] [facility] Comment on above: Performed By: #### C BC #### [facility] [address] [place], [place] [id number] Mikal Roselyn Platelet mean volume (Bld) [Entitic vol] 9.7 fL Normal 9.5-13.[address] [facility] Comment on above: Performed By: #### C BC #### [facility] [address] [place], [place] [id number] Mikal Roselyn Platelets (Bld) [#/Vol] 304 103/ul Normal 150-[address] [facility] Comment on above: Performed By: #### C BC #### [facility] [address] [place] [address] Mikal Dempsey RBC (Bld) [#/Vol] 4.81 106/ul Normal 4.20-5.40 [facility] Comment on above: Performed By: #### C BC #### [facility] [address] [place] [address] Mikal Dempsey WBC (Bld) [#/Vol] 7.4 103/ul Normal 4.0-11.0 [facility] Comment on above: Performed By: #### C BC #### [facility] [address] [place] [address] Mikal Dempsey CULTURE URINEon 08-30-2019 CULTURE URINE Culture Observations : Light growth of mixed genital sierra.No potential pathogens seen. Normal [facility] Comment on above: Performed By: #### U RCX #### [facility] [address] [place] [address] Mikalrena Dempsey DRUG SCREEN RAPID (URINE)on 08-30-2019 AMP Negative Normal NEGATIVE [facility] Comment on above: Performed By: #### D CHRISTOPHER UAMIC #### [facility] [address] [place] [address] Mikal Roselyn BAR Negative Normal NEGATIVE [facility] Comment on above: Performed By: #### D CHRISTOPHER UAMIC #### [facility] [address] [place] [address] Mikal Roselyn BUP Negative Normal NEGATIVE [facility] Comment on above: Performed By: #### D CHRISTOPHER, UAMIC #### [facility] [address] [place] [address] Mikal Roselyn BZO Negative Normal NEGATIVE [facility] Comment on above: Performed By: #### D CHRISTOPHER, UAMIC #### [facility] [address] [place] [address] Mikal Roselyn MADDY Positive Normal NEGATIVE [facility] Comment on above: Performed By: #### D MARYBETHD, UAMIC #### [facility] [address] [place] [address] Mikal Roselyn CUT-OFFS SEE BELOW Normal [facility] Comment on above: Result Comment: AMP [...] (Trycyclic Antidepressants): 300 ng/mL Performed By: #### Ernesto WHITE UAMIC #### [facility] [address] [place] [address] [facility] TEST SYST EM CUT-OFF CONCENTRATIONS ARE FOLLOWS: Normal [facility] Comment on above: Performed By: #### Ernesto WHITE UAMIC #### [facility] [address] [place] [address] Mikal Roselyn mAMP Negative Normal NEGATIVE [facility] Comment on above: Performed By: #### Ernesto WHITE UAMIC #### [facility] [address] [place] [address] Mikal Roselyn MTD Negative Normal NEGATIVE [facility] Comment on above: Performed By: #### Ernesto WHITE UAMIC #### [facility] [address] [place] [address] Mikal Roselyn OPI Negative Normal NEGATIVE [facility] Comment on above: Performed By: #### Ernesto WHITE UAMIC #### [facility] [address] [place] [address] Mikal Roselyn OXY Negative Normal NEGATIVE [facility] Comment on above: Performed By: #### Ernesto WHITE UAMIC #### [facility] [address] [address] Mikal Dempsey PCP Negative Normal NEGATIVE [facility] Comment on above: Performed By: #### D CHRISTOPHER, UAMIC #### [facility] [address] [address] Mikal Dempsey PPX Negative Normal NEGATIVE [facility] Comment on above: Performed By: #### D MARYBETHD, UAMIC #### [facility] [address] [address] Mikal Dempsey TCA Negative Normal NEGATIVE [facility] Comment on above: Performed By: #### D CHRISTOPHER, UAMIC #### [facility] [address] [place] [address] Mikal Dempsey THC Negative Normal NEGATIVE [facility] Comment on above: Performed By: #### D CHRISTOPHER, UAMIC #### [facility] [address] [place] [address] Mikal Dempsey GLYCOHEMOGLOBIN A1Con 2019 Glucose [Mass/Vol] 85 mg/dL Normal [facility] Comment on above: Performed By: #### A 1C #### [facility] [address] [place] [address] Mikal Dempsey HbA1c (Bld) [Mass fraction] 4.6 % Normal <=6.0 [facility] Comment on above: Performed By: #### A 1C #### [facility] [address] [place] [address] Mikal Dempsey PREG QUANT HCGon 08-30-2019 HCG QUANT 56375.00 mIU/mL Normal [facility] Comment on above: Performed By: #### P REGQNT #### [facility] [address] [place] [address] Mikal Dempsey HCG RANGE SEE BELOW Normal [facility] Comment on above: Result Comment: 5-50 0-1 WEEK 40-300 1-2 WEEKS 100-1,000 2-3 WEEKS 500-6,000 3-4 WEEKS 5,000-200,000 1-2 MONTHS 10,000-100,000 2-3 MONTHS 3,000-50,000 2ND TRIMESTER 1,000-50,000 3RD TRIMESTER Performed By: #### P REGQNT #### [facility] [address] [place] [address] Mikal Roselyn UA RANDOM W/MICROSCOPICon Bacteria LM.HPF (Urine sed) [#/Area] SMALL Normal NONE SEEN [facility] Comment on above: Performed By: #### D CHRISTOPHER, UAMIC #### [facility] [address] [place] [address] Mikal Roselyn Bilirubin [Mass/Vol] Negative Normal NEGATIVE [facility] Comment on above: Performed By: #### D CHRISTOPHER UAMIC #### [facility] [address] [place] [address] Mikal Roselyn BLOOD Negative Normal NEGATIVE [facility] Comment on above: Performed By: #### D CHRISTOPHER, UAMIC #### [facility] [address] [place] [address] Mikal Roselyn CAST NONE SEEN Normal NONE SEEN [facility] Comment on above: Performed By: #### Ernetso WHITE UAMIC #### [facility] [address] [place] [address] Mikal Roselyn Clarity (U) CLEAR Normal [facility] Comment on above: Performed By: #### Ernesto WHITE, UAMIC #### [facility] [address] [place] [address] Imkal Roselyn Color (U) YELLOW Normal YELLOW [facility] Comment on above: Performed By: #### Ernesto WHITE UAMIC #### [facility] [address] [place] [address] Mikal Roselyn Crystals LM Nom (Urine sed) NONE SEEN Normal NONE SEEN [facility] Comment on above: Performed By: #### Ernesto WHITE UAMIC #### [facility] [address] [place] [address] Mikal Roselyn Epithelial cells LM.HPF (Urine sed) [#/Area] FEW Normal [facility] Comment on above: Performed By: #### D CHRISTOPHER, UAMIC #### [facility] [address] [place] [address] Mikal Roselyn Glucose [Mass/Vol] Negative Normal NEGATIVE [facility] Comment on above: Performed By: #### D CHRISTOPHER UAMIC #### [facility] [address] [place] [address] Mikal Roselyn Ketones Ql (U) Negative Normal NEGATIVE [facility] Comment on above: Performed By: #### D CHRISTOPHER, UAMIC #### [facility] [address] [id number] Mikal Roselyn MUCOUS MODERATE Normal NONE SEEN [facility] Comment on above: Performed By: #### D CHRISTOPHER UAMIC #### [facility] [address] [place] [address] Mikal Roselyn Nitrite Ql (U) Negative Normal NEGATIVE [facility] Comment on above: Performed By: #### Ernesto WHITE UAMIC #### [facility] [address] [place] [address] Mikal Roselyn pH (Bld) 6.0 Normal 5-9 [facility] Comment on above: Performed By: #### D CHRISTOPHER UAMIC #### [facility] [address] [place] [address] Mikal Roselyn Protein [Mass/Vol] Negative Normal [facility] Comment on above: Performed By: #### D CHRISTOPHER UAMIC #### [facility] [address] [place] [address] Mikal Roselyn RBC (Bld) [#/Vol] 0-2 Normal 0-2 [facility] Comment on above: Performed By: #### D CHRISTOPHER UAMIC #### [facility] [address] [place] [address] Mikal Roselyn SPEC GRAVITY 1.025 Normal 1.005-<=1.025 [facility] Comment on above: Performed By: #### Ernesto WHITE UAMIC #### [facility] [address] [place] [address] Mikal Roselyn Urobilinogen Qn (U) 0.2 EU/dl Normal [facility] Comment on above: Performed By: #### D CHRISTOPHER UAMIC #### [facility] [address] [place], [place] [address] Mikal Roselyn WBC (Bld) [#/Vol] Negative Normal NEGATIVE [facility] Comment on above: Performed By: #### D CHRISTOPHER, UAMIC #### [facility] [address] [place], [place] [address] Mikal Roselyn WBC (Bld) [#/Vol] 2-5 Normal NONE SEEN [facility] Comment on above: Performed By: #### D CHRISTOPHER UAMIC #### [facility] [address] [place], [place] [address] Mikal Roselyn Encounters Encounter Date Encounter Type Care Provider Facility Start: 07-09-2023 End: 07-09-2023 Emergency department patient visit Baldo Fair Facility:[facility] Start: 07-02-2023 End: 07-02-2023 ambulatory ALEXANDER CONLEY Not Available Start: 06-23-2023 End: 06-23-2023 Emergency department patient visit Caden M Leonidas Facility:[facility] Start: 05-28-2023 End: 05-28-2023 ambulatory JOSE MARTEL Not Available Start: 03-21-2023 End: 03-21-2023 Emergency department patient visit [facility] Facility:[facility] Start: 04-17-2020 Patient encounter procedure SHAHNAZ CORONA [...] COR[place] Payers Date Payer Category Payer Medicaid [id number] 1995 Unknown [id number] 2.16.84 [id number] 1995 Unknown [id number] 2.16.84 0.1.677265.3.579.2.593 1997 Unknown [id number] 2.16.84 0.1.366411.3.579.2.593 1997 Unknown [id number] 2.16.84 0.1.804283.3.579.2.593 1997 Unknown [id number] 2.16.84 0.1.883764.3.579.2.593 1997 Unknown [id number] 2.16.84 0.1.109238.3.579.2.593 1997 Unknown [id number] 2.16.84 0.1.558073.3.579.2.593 1997 Unknown [id number] 2.16.84 0.1.713465.3.579.2.593 1997 Unknown [id number] 2.16.84 0.1.136916.3.579.2.593 1997 Unknown [id number] 2.16.84 0.1.401743.3.579.2.593 1997 Unknown [id number] 2.16.84 0.1.737207.3.579.2.593 1997 Unknown [id number] 2.16.84 0.1.101167.3.579.2.593 1997 Unknown [id number] 2.16.84 0.1.147509.3.579.2.593 1997 Unknown [id number] 2.16.84 0.1.634661.3.579.2.593 1997 Unknown [id number] 2.16.84 0.1.648487.3.579.2.593 1997 Unknown [id number] 2.16.84 0.1.836527.3.579.2.593 1997 Unknown [id number] 2.16.84 0.1.184383.3.579.2.593 1997 Unknown [id number] 2.16.840 .1.963146.3.579.2.1259 1997 Unknown [id number] 2.16.840 .1.122072.3.579.2.1259 1997 Unknown [id number] 2.16.8 40.1.396952.3.579.2.718 1997 Unknown [id number] 2.16.8 40.1.879915.3.579.2.718 1997 Unknown [id number] 2.16.8 40.1.030966.3.579.2.718 1959 Self-pay [id number] 1957 Unknown [id number] Clinical Note 07-09-2023 Note Date & Type [...] to help relieve symptoms, such as: ? Mcmx-jqr-dnxdpcv cold medicines. ? Cough suppressants. Coughing is [...] other clear broths. General instructions ? Take qvkh-fpx-azeacje and prescription medicines only as told by [...] and water are not available, use hand linux admin engineer. ? Avoid touching your mouth, face, eyes, [...] symptoms may be (more content not included)... [facility] Clinical Note 06-23-2023 Note Date & Type [...] ? Medicines that treat allergies (antihistamines). ? Sxpr-dcv-naesnqt pain relievers. ? If caused by bacteria, [...] home: Medicines ? Take, use, or apply qepm-mhs-lomijyl and prescription medicines only as told by [...] and water are not available, use hand linux admin engineer. ? Do not smoke. Avoid being around people who are smoking (secondhand smoke). ? Keep all follow-up visits. This is important. Contact a health care provider if: ? You have a fever. (more content not included)... [facility] Clinical Note 03-21-2023 Note Date & Type [...] ? Low-calorie sports drinks. ? Eat bland, hecm-fa-mcrtih foods in small amounts as you are able, such as: ? Bananas. ? Applesauce. ? Rice. ? Low-fat (lean) meats. ? [place]. ? Crackers. ? Avoid drinking fluids that have a lot of sugar or caffeine in them. This includes energy drinks, sports drinks, and soda. ? Avoid alcohol. ? Avoid spicy or fatty foods. General instructions ? Take bubu-lpx-gmknivn and prescription medicines only as told by your doctor. ? Drink enough fluid to keep your pee (urine) pale yellow. ? Wash your hands often with soap and water for at least 20 seconds. If you cannot use soap and water, use hand linux admin engineer. ? Make sure that everyone in your [...] doctor about eating and drinking. ? Take hccl-wbz-zzaowit and prescription medicines only as told by your doctor. ? Contact your doctor if your symptoms get worse or you have new symptoms. ? Keep all follow-up visits. This information is not intended to replace advice given to you by your health care provider. Make sure you discuss any questions you have with your health care provider. Document Revised: 01/03/2022 Document Reviewed: 01/03/2022 [employer] Patient Education ? 2022 [employer]. Obstetrics and Gynecology Warning Signs During During [...] back. ? Shortne (more content not included)... [facility] Summary Purpose Family History No Family History Records FoundNo Family History Records FoundNo Family History Records Found Advance Directives No Advanced Directives Records FoundNo Advanced Directives Records FoundNo Advanced Directives Records Found Additional Source Comments INFORMATION SOURCE (unrecogn ized section and content) DATE CREATED AUTHOR 04/19/2020 [facility] DATE CREATED AUTHOR AUTHOR'S ORGANIZ ATION 07/03/2023 [facility] EPIC DATE CREATED AUTHOR AUTHOR'S ORGANIZ ATION 07/23/2023 [facility] FOR RECORDS PERTAINING TO PATIENTS WHO ARE [...] BE BASED ON THE PRIMARY CLINICAL RECORDS. [facility]. provides no warranty or guarantee of the accuracy or completeness of information in this document.
== END 2023-07-30 09:49 | disposition home or self-care (01) ==
LOC: US 09:48
PROVIDERS: Visit Provider Obstetrics & Gynecology
DX: Z36.2 Encounter for other antenatal screening follow-up (principal); Z3A.25 25 weeks gestation of pregnancy
CPT/HCPCS: 76815

== ENCOUNTER 2023-10-05 09:59 | Outpatient (OUT) | payer MEDICAID, SELFPAY ==
--- NOTE | 2023-10-05 10:01 | US_ITS ---
[address] [address] Patient Name: BETTY RAMIREZ MRN: [id number] date: 1995 Sex: F Assigned Patient Location: [facility] Current Patient Location: [facility] Accession/Order Number: [id number] Exam Date: 10/05/2023 10:01 Report Date: 10/05/2023 10:32 At the request of: ALEXANDER CONLEY Procedure: US OB growth EXAMINATION: US OB growth HISTORY: LGA COMPARISON: No relevant comparison available. FINDINGS: Heart Rate: 142.0 bpm Amniotic Fluid Volume: 10.7 cm Number: 1.0 Position: Cephalic presentation, longitudinal lie Maximum Vertical Pocket: 4.5 cm cm 3.4 cm cm 1.8 cm cm 1.0 cm cm BIOMETRY: BPD: 8.4 cm cm; 33 weeks 6 days; 15% HC: 31.3 cmcm; 35 weeks 1 days , 15% AC: 30.6 cm cm; 34 weeks 4 days, 36% FL: 6.9 cm cm; 35 weeks 2 days; 41.6 % % EFW: 2499.1 grams, 5 lbs. 8 oz., 32% FL/AC: 22.4 FL/BPD: 81.7 HC/AC: 1.0 GESTATIONAL AGE: Age by EDC: 35 weeks 2 days PETER by EDC: 11/07/2023 Age by US: 34 weeks 5 days PETER by US: 11/11/2023 US/US OB growth IMPRESSION: Normal interval growth Electronically authenticated by: VANCE DING Date: 10/05/2023 10:32
--- OUTSIDE RECORDS SUMMARY | 2023-10-05 10:09 | XMS_ITS | CCD ---
Author Organization [facility] Care Team Providers Care Training Designer Name Role Phone SHAHNAZ CORONA Admitting Unavailable [...] Consulting Unavailable SHAHNAZ CORONA Attending Unavailable ALEXANDER LAWRENCE Admitting Unavailable VANCE DING V Consulting Unavailable ALEXANDER LAWRENCE Consulting Unavailable SHAHNAZ CORONA Consulting Unavailable CAREN WHARTON Admitting Unavailable CAREN WHARTON Attending Unavailable CAREN WHARTON Consulting Unavailable LEFTY GALE Consulting Unavailable SHAHNAZ CORONA Consulting Unavailable YAEL, ALEXANDER Admitting Unavailable YAEL, ALEXANDER Attending Unavailable YAEL, ALEXANDER Consulting Unavailable SHAHNAZ CORONA Consulting Unavailable DOTAMARA CARMONA Consulting Unavailable SHAHNAZ CORONA Procedure Practitioner Unavailab le DO, TAMARA Brannon Procedure Practitioner Unavailab le CHLOE, SHAHNAZ Admitting Unavailable CHLOE, SHAHNAZ Attending Unavailable CHLOE, SHAHNAZ Admitting Unavailable CHLOE, SHAHNAZ Attending Unavailable SHAHNAZ CORONA Consulting Unavailable Baldo Fair I Attending Unavailable Blunt, Caden M Primary Care Unavailable Kashk, Baldo I Admitting Unavailable Blunt, Caden M Primary Care Unavailable Armando Nieto Admitting Unavailable Armando Nieto Attending Unavailable Leonidas, Caden Garzon Primary Care Unavailable Cynthiana, Deven Jacob Admitting Unavailab le Cynthiana, Deven Jacob Attending Unavailab le Unavailable Primary Care Provider Unavailgerman LAWRENCE, ALEXANDER Attending Unavailable LIZBETH MARTEL Attending Unavailable YAEL, ALEXANDER Attending Unavailable LIZBETH MARTEL Attending Unavailable YAEL, ALEXANDER Attending Unavailable YAEL, ALEXANDER Attending Unavailable Allergies Allergy Classification Reported Allergen(s) Allergy Type Date of Onset Reaction(s) Facility (1 source) No Known Medication Allergies; Translations: [No Known Medication Allergies] Propensity to adverse reactions to drug (disorder) [facility] Repository Medications Current Medications Medication Drug Class(es) Dates Sig (Normalized) Sig (Original) aspirin 81 mg delayed release oral tablet (2 sources) Platelet Aggregation Inhibitor, Nonsteroidal Anti-inflammatory Drug take 1 tablet by mouth in the morning aspirin 81 MG EC tablet Take 81 mg by mouth in the morning. 0 Active 27-1 MG tablet (2 sources) Start: 07-23-2023 27-1 MG tablet MV-Min-Fe Fum-FA-DHA ( 1 PO) (2 sources) MV-Min-Fe Fum-FA-DHA ( 1 PO) Take 1 each by mouth in the morning. 0 Active Problems Active Problems Problem Classification Problem Date [...] source) Other mental disorders complicating childbirth; Translations: [OTH MENTAL D/O COMP CHILDBIRTH] Onset: 04-19-2020 Episodic [...] 04-19-2020 Chronic Other and delivery including normal (12 sources) Encounter for supervision of normal , unspecified, third trimester; Translations: [Encounter for supervision of normal , unspecified, second trimester] Onset: 09-09-2019 08-12-2023 Episodic Residual codes; unclassified (1 source) 37 [...] Test Name Value Interpretation Reference Range Facility Urinalysis macro (dipstick) panel (U)on 08-17-2023 Bilirubin, UA Negative Negative - 4(70) +++ mg/dL [facility] Blood, UA Negative Negative - 50 Diego/mcL [facility] Clarity, UA Clear [facility] Color, UA Yellow [facility] Glucose, UA Negative Negative - 1999(110) ++++ mg/dL [facility] Interpretation and review of laboratory results Normal [facility] Ketones, UA Negative Negative - 160(16) ++++ mg/dL [facility] Leukocytes, UA Negative Negative - 500+++ Radha/mcL [facility] Nitrite, UA Negative Negative - Positive [facility] pH, UA 5.5 5 - 9 [facility] Protein, UA Negative Negative - 1999(20) ++++ mg/dL [facility] Spec Grav, UA 1.015 1 - 1.03 [facility] Urobilinogen, UA 1.0 0.2 - 12 mg/dL [facility] Coding Summaryon 07-22-2023 Coding Summary HTMLBase 64 LinfpeapZAp0zJi+PGhlYW Q+QZ2VOPVcN71bgCDfwT9n U6XIIOoXErigCJWEEBlDHr SzfkKnIS5onBKcNSQl IC8+VN7wSHVwPzucqKKet8 D2vSH4Z91wee1hYBtkaYL4 ZIWgGvMgantlf7skcCs8RE cuNmluOyBt EFDjhY99MBT9dH72Lm45sS XjnOQjj0itaTb9BdLnITRm WII5pAuoAKdjt8MhMYJaK9 8sbVOuu8O3 IVXhtQicxDZuTaEuaHB6yF 7nYZzwcfpgz6awwtiqSnk2 jd68tGZyi4H4lUI1O7Cgig B9XBEeqHXi LjdkdPCBjX5iroydb4iggf yhZhDmHAEgTKz8NCp1HPUl xKxjZkEtON85ZNO1HSXlor WuN5EmMDSj yRstAlN5t9J0Lu7HL0ZPZb ozB8QRBXSAPKjksAJ+PC90 vv54P4KdZcrjKwl6QLJpHQ C8uXQ3eF7i VIZbHXyhj3H2nBF3F6Tdrd Zukp0uo1fmWWPwQJclH60z pTUpi8P9ORFstWF3MCLyjF whPtEteH60 Oyc+CEIszVguh3BnEvzis3 fcd3mfiNl9GwrlJDSizkEi rUglSSR9n1PvUb5dHFJazP C4jIZ6nU3k AsWxXvQ0TWhwT729UzYgvQ EcBfqkD02aE0EspNF+PHRy Rtu4NBMubArvSC7yN8UiDB RpbmctbGVm oUzgWG2lCSAmvsfxFBEvhW 1nZZPgQ4n5ClGfBtW6DNpi T8AaBVLeuhlaPu67gP1lKf HxFmE4QEbh A3OkmdU1RHCucQTeOAyuVG V6P25ca5Y2OWElMLXlTWS4 vHP6iY2pmQprhfrvnFDssT sgdmVydGlj VRvhUJrnR281CPAmtJugPy NvZGluZyBEYXRlOiAgMDEv MTAvMjAyNDwvdGQ+PHRkIH I8sZjaVSEp tDSoWWumCl8fiRfowNlfLK 2kHGLjbmkkHKYvvC2mBVBb hAEtuEmoUT6zDWAztvoqa2 85FdWoBKT3 MQNdjGXrW3QryH3rGaAhAZ LvSORcA5FhtGBeRQokH435 IRlzGeV0SJNvuqJbJ6ReWQ FsaWduOiB0 q1U5Zd4To3ZrjxrlJ8KcgR ZxFbHeWnmuIHr7Y5KcQhwo dHI+LA92SPEzXR22IPi4RS Y7nZfzLKgp FFWxB8DxfY7rXeSjGJRlDW RkOyc+PHRhYmxlIHdpZHRo NVvyPGPvUhYruHlkBI0gIm 9yZGVyLWNv hXdxhFCqDbQzi0kkPWCcUP ogJO7ykPbvY8UjkAB5TSIm r3p0Zn92P71vZ7OmjOC+PG RauNJ4iLW3 fG9xUpHcSpZ1BBioE551De PalOWxOuxvl2nej3tbcSc1 FjN9ZEXvsqSqrSouKJG3x7 LqHy82R91q IHdpZHRoPSIxNSUiIHZhbG frtp1ksN5eYv4+PGNvbCB3 wRD3cI3pTkTuUoH3RYznR5 49InRvcCIv Uchpw2rdi8hdcTs1GvRaNM IqbdKkhNxkRZV4b0QsDs13 P4VhxCxrf7KfRms9ya45bY Dza7P2nVA8 I0UsVBRyaevlqJHooAphOH 5cZECrdatxCGEwgX7zANEx K0e4EyJsZgR5LUlyC8Oims F8WPKhwAHt BWEjjSGWcT7gwuscp5bbio nqOxAwCYHkAQg5HMy6EDOi zEizEePsOTT1MxS1XRW6eT FhyF4pjHon wzhfcX2pAus+DKZ7fXVbgS HDMS2xQzxtdSH+PHRkIHN0 tIujJYmeTHArgE0yCEXgT9 p9UfCvXhW3 HIndH4HqayV7MSUxmCRjPI MepSJKyS6ohkgrp4caacui HlWpGRXsROj5JGe5HNGbkT duOiBsZWZ0 YtN0SIL8sORywR4wlOusyc gdiF9iRxo+QmlydGggRGF0 RAu9M4HmVsr3CDAwaGksYS 0ncGFkZGlu Zu1lsIbzxEjxEM2lYCHydt ymu616EnBej9naHTNjdSBf QIdeYOL4Q34tf2Q1WHOoVA TuRPV6aYG8 bH6gvJncyduizVSuzIyfrz DniGghRTdaJQooM137OBZi vHolSlZrDEz4X0PfGvq2DT MnaHiwFY2g cZTqXTubCq6ciNiyyLmxNE 7xMJBfaazja462RaAnx7mw PNSsdMDoXCykIJA5A82lc8 N9WMLyASDz GIF8cYI2rX0eeLddlhrmyX VmdDsgdmVydGljYWwtYWxp N244WIMirSqsHgXhjKx1S3 EaSrq1IIEz jHzjFO5tnKLtCLhjJg9rfJ zatPptPD8uFKMtijroh759 XmTft4uaPKKvhPFmAOvqSS K4Y40ep9L8 IXVxKQFoAJQ7oKD9gV3pzX lnbjogbGVmdDsgdmVydGlj EDijOVtdB061LGKgfPsbZo BhdGllbnQg DPbqKRk2H3FoFuyveMQ+PC 52MPBgUI03aDYjlGAlf6kg cXt1HhUrBOFtUKP9wFdzTD ydr4FtDDYi I82joLRiu3W5PZVvsRozdM KtTdEkmUB7uI9yDTvkzjhm j8nfbksyKjxuc9yaqa34jI 21Q33ePPza ZHRoPSIzMCUiIHZhbGlnbj 3bfF3eCb3+NSJfdPI9nZK6 vA3uVPHnPhE5ZVonQ798Nt RvcCIvPjxj e4fyi1pwtNf7EfY5WYXxah JtwAhjIRE2y4KyKg41Z99d IHdpZHRoPSIyMCUiIHZhbG hmcb5zkP4j Ii8+YNTjuRB5rMH2yL8nPz EqYwG5NNetQ189SbVulSLa SyroI68eZ3GxuXJ+PHRyPj x2NJLliFxz JU8kqODyILpgXy7yGFB9Gu FtKiQqQBwfA6EjSUQdtubn wrwxaHR5GLHgPXVwhY24Xz 9udDogMTBw bTQPaP4ftcmqf0mjtyfcGm FoTWBrPDu4MKb8RURzxMtc ZlJeZAH0YnT0JFN7vWGmeO 1hbGlnbjog zB2wC9QiXTRhdtctQb39rS 9cAsQcHkP3MDfvAtk+V0FH CeRCIFKXPLLAHO6IQLGEHd wvdGQ+PHRk MJC1gKfzGTjkVSDnlV5iMD BbJ7v8TeXvGtQ5RQihI2Zz YCMsrijpXg40yD3sQgFeBb Y2EHfkO6Br wnX2UOUckCHjJVyhFJH8Y4 4kt0K6YKJjVMVcFDY4fSZ5 zF6ucJtceowrtMWspPxawf VydGljYWwt MFmwI568LJNsgItqZvCkPe N5YbA2PKu5K8YlIpi1OARy gAreKI4tbTYwBPrlTj3ksL awuPrePA6x NPQrsozdRXZqkR8vUDNmsX CkqHmaQY5sZNUsvjlcj382 AgUiDCT0KNGjbTFjQ0WbaO 9yOiAjMDAw WMPbH2VghJBwSWxxS886VG jgBvN9QFIxxoRqT3VgDUXh dFlsWiD8e4L4Am2tNTKGIC FyczwvdGQ+ INKrYXM7yStnMXptNTBjsJ 0bVZZbF6y6NqSnYgU4TEhz Z6VtMIVhjwfwZy37wE0lVk DiToT5BXtm S0JfdpX3MXJseAGpBVxkZA I5N56rp6P9ERBdZLLxJJT7 pLU7fE4mbPzggclcfQNoeR sgdmVydGlj EVsqNEdxK822YEVaqFwdJp ZFTUFMRTwvdGQ+PHRkIHN0 xHtuHEhsDFNvdH1jTXRkW0 c9ArVmJjG0 KCayY1EwOCJxbwnfCq44gU 9dStFfAyF7XUhyV7AlqwD1 NVYwyKUkVCyrEWJ3D38rf9 N9UVPwRZZo XKU8qKA0sG9xlRxpvossmJ VmdDsgdmVydGljYWwtYWxp T886DAMlgVkdTxPxUBOpRE 5jeTwvdGQ+ DS93yl89F3FeQarbUfi0ZY OwNVQ7pRZ5xH2wNRQnXBvr n1K3bWM3F0IyqsYumb3jw4 xsYXBzZTog O91fiSXuq4Y1BHTubAJ0QO SlxVtfLoDktS46Hcb+PGNv kNxfs5EiOzynm8wzc2mjsD j2DtUpDMHw sxFniPpjLPO4j7FaVo84Q7 9sIHdpZHRoPSIzMCUiIHZh rAjqhz1whQ8vCx6+PGNvbC H6eRL1fW5f ZvMsFzU4ZEsyI393PmHvsC JaBzzyk3tjw3rtnFh7BiBp GGIvbgBntHnqLTI2e8YnBw 20B0McsNvu k0StHxq6jm02wSGdr5X3vZ S6Q5RcWIJpalidgNOwlNqp TC3lEHJivbqbADIdwR3rLJ IzU7o0ImYn TtR2PCulW3EqhvR4ZQGluF MpTIDcpXOLjU5yhgrki9hd mpgsJmRmAEWpIDw6AVl6KI FsaWduOiBs VLK1GqC9FTA1kJAyxE3zmH rfbzzrgY5hYfo+VKg7f2fu qMUwNM8zbKS0DD15PS38oJ Vti1B6yOP4 O1NmMNAzdwneoeuffHW3PS BlSUAjhV19Sv5eoRwyGx1y SVDmKYI1MDSsiNCpC8BqfU 9yOiAjMDAw FTBhI9VxfTZuMXhzH150ON viZwD3XSDvtxJjM7YzPMJx xHtfOoA1r5J2So6KAR55RX 54SD47sDEv z9W0vYP8B5TcPXAsqtvvow jldWG1YSGcYOKzlW30Zu6g jJliYk4iVIHvAEX5EBFhuF RkQ6GjiX7x BeHbXKEoWSYgX9NchRObZY hyD731XYdySuH0GAHmbnGy Z1CmGRUyhMleZaL5h1P8Vs 0YQa96EU43 AS94uOMir3O4fAX9K6DeOT NklxmxiuaelQT3JWOmTGSz lD90Er5hkUxbNi1wUZEqAE W5GVRmzINl J8BjoS4mDiYzYNAbJYVeZ8 TioPUgRQweB722IQikDvE9 ZSCmgnOzQ1FuSYMkmYvlQy J6n1W1Ti1I ZFxgexy5P3RzZbjqgCA+PC 18QRGpEA11fQYryFVkk0mw pOd7NyIfBVJpUTW1dQogBI zea6GbEGJs Y29 (more content not included)... [facility] Consent Formson 07-10-2023 Consent Forms [id number] [facility] ED Clinical Summaryon 2022 ED Clinical Summary [facility] - Emergency Department [address] [place] [address] ED Clinical Summary PERSON INFORMATION Name: BETTY RAMIREZ Age: 27 Years Sex: FEMALE : 1995 MRN: Acct#: Visit Reason: Fever; Cough; COUGH, FEVER Arrival: 07/09/2023 12:39:18 Discharge: 07/09/2023 16:57:00 LOS: 000 04:18 Check In: 07/09/2023 12:39:18 Checkout:07/09/2023 16:57:00 Address: [address] [place], [place] [address] PCP: Caden Lauren MD PROVIDER INFORMATION Provider Role Assigned Unassigned Patty Wang HEAD OF PRODUCT Nurse 07/09/2023 14:55:21 Baldo Fair MD ED [...] Infection, Adult Follow-Up: With: Address: When: [facility], [address] [place] [address] Business (1) Within 3 to 5 days Comments: Call for follow up appointment DIAGNOSIS: Upper respiratory infection Patient Understands: Yes - Patient/family/caregiv er verbalizes understanding of instructions given Comment: [facility] ED Note-Nursingon 07-09-2023 ED Note-Nursing Patient taken to [place] [address] at this time, delayed rooming due to high patient census. Patient is aware and denies needs or concerns. -05 [facility] ED Note-Nursing Pt. C/O of having fl u B two weeks ago then getting better. PT. states about 3 days ago she started to have a cough with yellow mucus, fever and pressure behind her eyes. Pt. is A&O x4. PT. has a steady gait. [facility] ED Patient Summaryon 023 ED Patient Summary [facility] - Emergency Department [address] [place] [address] PATIENT DISCHARGE INSTRUCTIONS Patient Information Name: BETTY RAMIREZ Age: 27 Years Date of : 1995 Reason For Visit: Fever; Cough; COUGH, FEVER Arrival Time: 07/09/2023 12:39:18 Primary Care Physician: Caden Lauren MD Attending Physician: Baldo Fair MD Comment: Visit Diagnosis: Diagnoses This Visit Cough ([id number]) Fever ([id number]) Upper respiratory infection (J06.9) The Pharmacy at [...] alcohol and/or drug addiction problems; contact the [facility] 02/02 Crisis Hotline -Text 4HYIY to 403517. If you received any narcotics, sedation, or [...] legal documents With: Address: When: Cadenernesto Cavazos [facility], [id number] [place], [place] [id number] Business (1) Within 3 to 5 days Comments: Call for follow up appointment Medication Information: The exam and treatment you received today in the [facility] Emergency Department were for an urgent problem and are not intended as complete care. It is important for you to follow up with a doctor, nurse practitioner, or physician?s volunteer assistant for ongoing care. If your symptoms [...] so we can reach you if necessary. [facility] Emergency Department has provided you with a complete list of medications post discharge. Please inform your ripsawyer/provider of your visit and for further instruction [...] You are mor (more content not included)... [facility] XR Chest 1 View Frontalon XR Chest 1 View Frontal CLINICAL HISTORY: Cough. Wheezing. TECHNIQUE: One view of the chest. COMPARISON: [None.] RESULT: No focal consolidation. No pleural effusion. No pneumothorax. Normal cardiomediastinal silhouette. No acute osseous findings. IMPRESSION: No acute radiographic abnormality. Final Signed (Electronic Signature): Wesley Pillai MD 07/09/23 4:32 pm Technologist: Salud CISNEROS [facility] Coding Summaryon 06-30-2023 Coding Summary HTMLBase 64 NibxdzkrITl6rOq+PGhlYW Q+PR8WDCMkF98arLBvgJ4j J1HHOIuZVkliFPRCLKiZSa BgviXuAF7rvIUeVYNu IC8+XF6cNCQjQniigKBus3 S3eSZ7G10fsa7dSTzzjPV6 NFQkQxYygkpmb3utxQq0UF cuNmluOyBt JDOmaO63MCO9sZ51Ez18eC NnePWdx3zqoZe8XbClEIRw OIV2iFneMXabz2DmUHZgG1 4tfIGwx8J3 YWCwoDuetWFfKnIdtGP9kF 4yXLsofcwxu8sqqazwXrk0 vb04jNIpc8X0hUW7B8Nmnq G3YVGcuDCd OpueyBJOrC6hchjun3kiua sbIvYkJZBeUUy7GDo1UWPp zLynBrUbJU43YYN5HETxtm EwY6WhKEXm oAyvOiG9l4L2Ur2ZS0YSDq bhF1XIMZYLQUdfhFG+PC90 hs15Q8UqViloXxr7OUJnRU D4kKG1kB5v ECWdHPwjr3Y3jGR3W1Lmme Ajvx9nf7ygRPEtMYhrC36l kKLqb8H4UQCmpXZ0CSRqiP uxDxKflA50 Oyc+PQUxeWovp3HpMpqwf6 aqp3xfxMq0UrenTXGhthUt mAmdEAF6l1FgWz6iRLNfrL W6gHT7qK2j XqFnFuR5HIgtD692YaHyaB JmRyrzS63bR5GmjQL+PHRy Unj9NSIkgXgzZP5eA5OfMF RpbmctbGVm qUaoTH6sMXRfcfejKQLjlF 4cQPAaN6e9ZeZoAzA4GFes O8JwBZCrgmroLb86sT5tSu WtQwU2QWqx G4KpvvE0LGAwqSGwMDixFR Z2Y98za8D7NRPlDMPnMBV9 tLD5vD4bnVliwdpztRObyL sgdmVydGlj SEhvJRegA498SQZaxPuhHl NvZGluZyBEYXRlOiAgMTIv MTkvMjAyMzwvdGQ+PHRkIH Q6pRvjWENu bPKzMHouKp4vyJxwuBgaAD 1pILWbhrzfYWSnvN1fNZYx yTXfhMvrFR0zTUYfybcns2 90PjKnASP0 UYKhkCEqF3ZagU9vCoIkRD YuBZIvT4JddCDzSEapP063 UGsjRjI0QVFzbjIaD7MxDN FsaWduOiB0 w5H9Lx8Pa8AsfgiaP9HsxF CsCiChQdreTUo8W0XhIztu dHI+XX86CNTgIS61ELi7TP Q8rErhUHng IVGeB6MetW2zMaFrTIMxJZ RkOyc+PHRhYmxlIHdpZHRo UAzgGRZeKgWkvUujBJ4cQy 9yZGVyLWNv cXvryDIpLmTmz8juCVKpIU jxZU4auBwkX0LvoMP8QILv l0b9Vc22F44pE1CdaGU+PG UgdXD3hTE6 uU2lNyMeWeB8GIqvX439Ls VpfXTiRfqnm4mxr5uieAe6 AlM8GZFylpCmaDuwCJY7n4 XiJn80Q34w IHdpZHRoPSIxNSUiIHZhbG wfox3bkR1bRl2+PGNvbCB3 zIC1yM7jXhNfVyS0ONtrR1 49InRvcCIv Urxcg5lqe6gipUv8MmKtYF YcyqZjwYgbLRE9s4NcYy88 D3GbjIzea1EiNfh1yc40xM Sqi7W6oVK4 Y9WvMMEoadwhdWZmmRpgIP 0oMIZqytqoUYHcaX8xTHBp W9u8EjVaUaL9YVjgC2Vfxl R8KGMwhETg TGGqjHQKdX5itzlmr3fkgm uzUiJjXHHoUBm1HWp4GQHu cMsuOxEeTFA1HzX3UMR3oC LfwN1slEql wqtzhN5lAzu+NHN4xFFhiI XSZH7wTkxlmUT+PHRkIHN0 pZioAZydBLOnzS8pXJYgR4 y9LdVuSkX2 QBflQ8ZriqS3JTIiySQbEG IweLCBnY2rmyukt9nhdcyf NvYiIYFkPGi4DGj5WZCquS duOiBsZWZ0 KoO2IJV3zDAviP6iuMakbp cwuW6pDsf+QmlydGggRGF0 QPf1V7PgLpe9NMEpeBqtKX 0ncGFkZGlu Gg5rmDjxyFsgKA1cHOWcfh wkm196YsWij5tzNWJzuLGi CYugDZR8H18jn2O4FHDhIP WjHSP4cGP9 xM4ytLcbljlgdZBmhKadgy LyvKchMNlaXKzfQ166AHJu gOmjBbXuEVj3B1TkRiz9SY PcgMkvBK7t bROmTAmmCt8xaCgcqDnoYS 0dYCQlktezm460EgZyv4fz OAAzvMRxPQdvEDV5K45qk4 P6PZLqABAr JQG3xDC7fC4xsCzzrxdkhF VmdDsgdmVydGljYWwtYWxp U747YGStzDxrUlTysWl5E5 NfMwo8BTHt eAuwOS3jmAVvFVivAg5ndD cyfCcsLV7cFIUhdxfie632 ClTmy5spLIIlnZJtGHtcIX J7I78sz4U0 OBDdIRZkYSE2zLR6rZ5agX lnbjogbGVmdDsgdmVydGlj NGfbXMkfF843XHFvrNypNs BhdGllbnQg IHkfWWj7U9NkUnltjUB+PC 03QKEhLJ53rZDmwGAqo1hx yPf1VgMvWKXdSIO3sVlpSC cey7KdDTCa J96pzJPao2S7AEOmvBsjjM MgVaXbdWZ4zD7pNTyklkfs h1bdoxcdOjgzz4bigu81iG 93R16sTArk ZHRoPSIzMCUiIHZhbGlnbj 7cpP9zIp5+CQPmtEM3lQI8 qJ8ePKJwWlO0RFpuW309Tz RvcCIvPjxj z3eca7zmmXm2NjO8AQHrsq CiwNfbIVI9t6UzEd69R07b IHdpZHRoPSIyMCUiIHZhbG oqxy0uxW3o Ii8+OTMkfRT5cYA4fH3xEa FsKdC2EUrqJ636WqEdqQWl BgjzP51bO3JuaKH+PHRyPj x2MFFuqTtq FT1pzDYnGOiaEy4vEZB8Bu ApJrOcHUakR3EaCIQmhshg uxaklYB6CLOiQYVwwL23Ez 9udDogMTBw nKDDnW3ilsqrd8fewvceKg WuSGWvLAh3DDf9DTOuwIph CwPgZLM8MuK9DCF1vIZmzA 1hbGlnbjog nA6xN8CvFJLysfgbRf31aA 8yQrVxTvB8BOtaYro+V0FH KiVWPIDTGWPNHA1YEKNVNl wvdGQ+PHRk UGG5gPvlGQokZZNyvJ4xOR LgK0u0HsPdKrM6KUogJ1Pt RWSeyfjcHy98vG5xGyRgZp D7LSwrJ1Ty zuH2OKIoqBVzLBivYEO5N0 4xd4G4PJLhYXHgHVO1gHG6 cI0wnKxistruwWHskLmyge VydGljYWwt XEtnM124BORsjVabNdSxNf Y0SpU7XDk6H5EhEzs7KVCo zMivQZ0mqAUwYGbxFt7hqZ pvsIxiSO3q YBJwlxtrUJTocD1yXGKuwQ YohOmsHN0aGRWxelqed727 BcXoIDK5BDQrsNYvE9NgrN 9yOiAjMDAw LBMqD3UzySPiHXtjL798SW qaCvO0AGPfegLoH4WgQGJd zSqnSoA8d9R1Gm3lKUEUOV FyczwvdGQ+ RGTgOSG5fTnpXCnlZLFelX 3uYBYdX1a2JhHcHdN0KYkh W9RlFPFzcpoqWk26wT6qZd DsWoT3GKjh S5AadbU1KUPpeYFsRXmkDK Q8L81cz3Y2TWExCJIhWKQ3 tPL8aK4vpGnukkyqnTEfyS sgdmVydGlj HFhyRUlwS997LCIwdHzyWq ZFTUFMRTwvdGQ+PHRkIHN0 kArxQNdbHAAexT0zVNPqQ1 y2CgQgLgQ7 JUowE3CvXJNwafrsYd86pF 7fXrWdTlO4CWocQ3JvpcH2 XZMscSLgOSgpRET5X25zy2 J0YYAwJFQl ZZO8yFE2fL5qzLltoamipE VmdDsgdmVydGljYWwtYWxp M364LLPfqCsyFsNiODCoKZ 5jeTwvdGQ+ ZK97dg95E7NrDjouGkf2GW CsCLE6hVO6jG4sVRDzLGzx y3Z6hLK8I0SpweZlkv2ye6 xsYXBzZTog M88avTDcg7B9TZBpeTK0LR QedGzlGuBmgQ54Gvj+PGNv nVkmw3ZeOljii5yud9eyoO k2PkMnWUHz uyDtoNqcPXE3s4HaSr95T4 9sIHdpZHRoPSIzMCUiIHZh xGeddd0xxT8oXp4+PGNvbC I2yRT0lU2p QoDcOzZ5XSwoI023CdEepQ TuJjsic0faz1cagAe1CxGr VDZayeTasHzlGDX6q1VxXk 75C7KauLcp f1XmScl8fl33xDJym5W7gQ H6G2KgPSPbvpakmVEpvQik ST1oPOFdiiccGFWweI6nKQ ChV9y9LbQc DvZ0DWkcL2HzmmQ6YYIksB WyHEBgcWLRjP4rthgro6tz fwxlJqLxWLSlXIv0ACv6FR FsaWduOiBs RPB9OrY6VFY9aSRipP0vhT zdslqbvQ4aBqw+RGp5w8kp jORvYW6tyJC7YE06RT62iM Vfa9J2pQC6 J3QaDLPokajisrjhwTS5QD KtIABlbF05Bk0vfKbxBb1d VYYnEDY2GEDqdBIoU5OucY 9yOiAjMDAw MMGpJ9LlaMZcHHfeC471KF lqYnQ3DQLikwAvD8QxLNYi vBxjNxJ5x6H6Eb3FMZ99NO 99WE13uTQd h4G4iAO0Z9AxFACpotwver otsVH7SBHuOLDysR22Ez2y tZvvEn3aTQAcODU3KKGwvC VxD9GxwK3i KmSeQTFcDACwN7QswETcST zyF285HDzkUuR2QRObapNk K8WcSMTlgNwlJvO8e4T7Tl 9EWq04GE98 PW00aOBhb7E9qGF8J5GyUU JejxcueapyjPV9SEObUFSi qA38Lt3zjNxeHm5dXINsUX Z4LAQaxXWw U4YleS8eGgQiDUMkVJOfS7 BvpKVpCRddQ568ABrpMoH1 NNYhkyPaW7RxCAUiyAyrHm L4h5R2Xc7S SGqxddv8M6QiVfkvhRC+PC 30DKPlIN26oBRacCCtc4op iDo7MnAsZKPuYOX7zEfhDN fut3BlOVSf Y29 (more content not included)... [facility] C Throaton 06-25-2023 C Throat Ordered by Vira. Normal throat sierra isolated No pathogens isolated [facility] Comment on above: Performed By: #### 7 [id number], [id number] ####[facility] (DEFAULT)[address] [place] [id number] .QC SARS-CoV-2 (COVID-19)/Fl u/RSV (GeneXpert)on 06-23-2023 Internal Control Pass [facility] Comment on above: Order Comment: Order ed by Vira.[[email or web address]] Performed By: #### 7 [id number], [id number] ####[facility] (DEFAULT)[address] [place] [address] COVID/Flu/RSV (GeneXpert)on 06-23-2023 Flu A (GXpert COVFLURSV) Negative Normal [facility] Comment on above: Performed By: #### 7 [id number], [id number] ####[facility] (DEFAULT)[address] [place] [address] Flu B (GXpert COVFLURSV) Negative Normal [facility] Comment on above: Performed By: #### 7 [id number], [id number] ####[facility] (DEFAULT)[address] [place] [address] RSV (GXpert COVFLURSV) Negative Normal [facility] Comment on above: Performed By: #### 7 [id number], [id number] ####[facility] (DEFAULT)[address] [place] [address]147 SARS-CoV-2 (COVID-19) RNA MAYCO+probe Ql (Unsp spec) Negative Normal Negative [facility] Comment on above: Result Comment: Perf ormed by PCR methodology. Performed By: #### 7 [id number], [id number] ####[facility] (DEFAULT)[address] [place] [address] ED Clinical Summaryon 2022 ED Clinical Summary [facility] - Emergency Department [address] [place] [address] ED Clinical Summary PERSON INFORMATION Name: BETTY RAMIREZ Age: 27 Years Sex: FEMALE : 1995 MRN: Acct#: Visit Reason: Sinus Pain/Congestion; Cough; SORE THROAT, CONGESTION, VOMITING Arrival: 06/23/2023 09:52:37 Discharge: 06/23/2023 11:16:00 LOS: 000 01:24 Check In: 06/23/2023 09:52:37 Checkout:06/23/2023 11:16:00 Address: [address] [place] [address] PCP: Caden Lauren MD PROVIDER INFORMATION Provider Role Assigned Unassigned Deven Marie DO ED Provider 06/23/2023 09:55:34 Nestor Wilson HEAD OF [employer]ODUCT Nurse 06/23/2023 10:25:25 VITALS INFORMATION Vital Sign [...] Medical history: Resolved Superficial laceration of scalp ([id number]): Resolved. Acute laryngopharyngitis ([id number]): Resolved.. Surgical history: No active procedure history [...] Reevaluation 27-year (more content not included)... Normal [facility] ED Note - Physicianon 2022 ED [...] Medical history: Resolved Superficial laceration of scalp ([id number]): Resolved. Acute laryngopharyngitis (13203363): Resolved.. Surgical history: No active procedure history [...] amoxicillin. Impression and Plan Diagnosis Acute sinusitis (QIL54-KT J01.90, Discharge, Medical) Plan Condition: Improved, Stable. [...] understanding of instructio (more content not included)... [facility] ED Note-Nursingon 06-23-2023 ED Note-Nursing private vehicle arrival with c/o cough congestion since last with multiple sick contacts at home. lcta. maintains ra saturation. rr even and unlabored. [id number]. no distress. oriented to call light. s/o and childx2 at bedside. pending swabs [facility] ED Patient Summaryon 023 ED Patient Summary [facility] - Emergency Department [address] [place] [address] PATIENT DISCHARGE INSTRUCTIONS Patient Information Name: BETTY RAMIREZ Age: 27 Years Date of : 1995 Reason For Visit: Sinus Pain/Congestion; Cough; SORE THROAT, CONGESTION, VOMITING Arrival Time: 06/23/2023 09:52:37 Primary Care Physician: Caden Lauren MD Attending Physician: Deven Marie DO Comment: Visit Diagnosis: Diagnoses This Visit Acute sinusitis (J01.90) Cough ([id number]) Sinus Pain/Congestion ([id number]) The Pharmacy at [facility] is [...] alcohol and/or drug addiction problems; contact the [facility] 02/02 Crisis Hotline -Text 7UHMP tl 969386. If you received any narcotics, sedation, or [...] legal documents With: Address: When: Caden Cavazos [facility], [address] [place], [place] [id number] Business (1) Within 3 to 5 days [...] with a doctor, nurse practitioner, or physician?s volunteer assistant for ongoing care. If your symptoms [...] so we can reach you if necessary. [facility] Emergency Department has provided you with a complete list of medications post discharge. Please inform your ripsawyer/provider of your visit and for further instruction on these medications. Any specific questions regarding your chronic medications and dosages should be discussed with your primary care physician(s) and/or pharmacist. New Medications [id number], [address], [place] [id number], [phone] amoxicillin (amoxicillin 875 mg oral tablet) 1 [...] sinuses. W (more content not included)... Normal [facility] Strep Aon 06-23-2023 Strep procedure control Pass Normal [facility] Comment on above: Performed By: #### 7 [id number], [id number] ####[facility] (DEFAULT)[address] [place] [address] Streptococcus A Negative Normal Negative [facility] Comment on above: Performed By: #### 7 [id number], [id number], [id number] ####[facility] (DEFAULT)[address] [place] [address] Coding Summaryon 04-03-2023 Coding Summary HTMLBase 64 EziwmdpqGBm3oYz+PGhlYW Q+LD3LWTQhD13cjWMelA9w P8LSWUbDKzhzYNVRDYzGWt HitwNfIB1xlNPcXWMw IC8+IL8oZFEmLtrdyJVmz4 N0dIK2Z13rlt4zVMzcxRU5 NDWvVpXikburl6ujeJw0JG cuNmluOyBt JEJpjZ49UAJ5mJ71Jj85cD NujKRnq5zxrJz6UwBqOBLm PXQ0aUioJOvls8LqCUPmJ3 6rcYZek7U9 JLWnoNjejXCmNxUcsCI8vB 5dYTpmvcsmg2mfjkxjMyz7 sv62nRCrp4C8nZS8N0Wwgo F0UJDnlDMv EexebAEJiH8ljqsfl9hanv ffStLgRKXaADo6YXs9POWs lWifQcUeZE78TDV6ESQqpe MnM4HgSMCe bWheLoB2j5J3Hf7SF3UOJd xuO6MTZIRMUAdjcRF+PC90 rh87S9JnHxdfHgr3JVIgMJ P8jLU0tB1r IHMzYSidh3Z1aZV0E1Zmqg Fuep8ux6ghMZUzDAjeV71p uMJlr3S8CRYlzEZ2OUWhaY uqFxGlrK30 Oyc+GVXfkPzca4LxUjozu2 hqw7tieJg3BpljXHCmixOe pVurPKL7j1OoKy7wKUUstA C9jEL2jS8z CgEoPsV7WIqjI429YrUjkL ZuLftnS13pM8YxaRM+PHRy Eqy2LHTrsNasTK8eC4VvGU RpbmctbGVm cSjzMH8iVEWealbkNOKxmD 6gJEAkU4e6IaVaPsX5PLta S1GmFTHlqrweZh14tT0fGp ZkCeL2YFrd M0WignM7ZKDyyVBmUXkcJW B5E25et5J0NHIfEJCbFPF1 uUP4qS4yiOxfmgzflXTobS sgdmVydGlj GJwmDLxmK243XPJppCgeGt NvZGluZyBEYXRlOiAgMDkv MjIvMjAyMzwvdGQ+PHRkIH R0yFvxTETa uWPhOLywUx2nqPyibZebPM 9aWKWsdiupLPTorM8dYGUj tLWdmTdeLN2gNZKjlcenb1 30EhCsNCR5 TRVhgJWzD1HzkG5aLhElTQ VnIRBgZ4QzuTNnLInbP561 HWhoEnF2HONrbbYgO5JeMB FsaWduOiB0 j8O1Fk3Ox4CcqgupK8QwyL GoJrHiJeitFIx3R1SzBunx dHI+JZ89KIXjRP12WNx3RH E0bSqcAZsp UWHbP1WyfJ3iQrIrRZYnKR RkOyc+PHRhYmxlIHdpZHRo WAplFDSiCvLjqYmeLG8jJq 9yZGVyLWNv nPfwdJQvHzWkn4qcNHOwPD jbBI9ipQmsA3EirLI6WLEy j6s2Mp92E43eK4DamRO+PG VhzHO7xBS5 fA6xTqRhGzM4MAwkC905Xh IhgHYgNxmvc8xjj4cuyFq3 ZfN7NQZveuRqzPqpSPM9v7 ElRa84E54o IHdpZHRoPSIxNSUiIHZhbG ezab7dbA2fRb7+PGNvbCB3 pRK4pO6nUtTyAcR1QJpeZ1 49InRvcCIv Mfzqh4ymf9sucWu1OaJzAI NpzsPzwQdjVYN1v6KvYl49 S2FojAals4LmUst9pn95mC Jcl7I4vGJ8 M0IfOMUusgemjQUnzGlvPJ 1hTABqhdadSCVvrN7oWSCd Z9h8LmMdMmD8BTdxG5Gkbw H1PRXjcQOj ZGJgoMXPcC4dspdwc0yirq msIcHsRGBgDQc4GJw5TPEh gRvqQgYpZML9IzS3FDJ1oN LkeN9lmGbh gpjnjW2uBmr+TEP4uBQtuB EWUI7wFruydZE+PHRkIHN0 xFmgZAygGUUaxW4nNKReM2 s2WdUqIgH8 BFtsC7BcxkU6FOGrpWIrLZ GwaIGSpS3lamjca7shoisi CtSoOCJdVLr2OVk5HTMakI duOiBsZWZ0 FkA1LDL3jTYpeP1kqCaelf zbfW0vFme+QmlydGggRGF0 DTq6Y6AtPvb6QCGgkRzoUK 0ncGFkZGlu Ui2cpXkhbRspRE8xQWWrpg iuz147QkGtp5spEDVghNIe ENqsANC8Z15eb1Q5CPMyBF GpTAQ6sCD2 aG6dzIcnvznhkRRbcBncnx GaeLaqSFqyZVohG660WYGq qUrmKeHmVHg3O3YeEtu1MM YlgUfhYE9a oTHdZZyoYq4hyRnbsJbeOJ 0fQWAvfrbal484PrAgc5ri LYQuqOFdISksBCB2P09sq8 Z2YNVyEFVz LZN0zJZ4sH6dtXvuuanszT VmdDsgdmVydGljYWwtYWxp G576TLPbdUanNfPfhCl2U6 BkGsp8VDGd eSwqFQ3ymMSuNGyjIb5vqM vfrWciBV4uBLEiwwrav475 WiIqv3zkDQUiuABxKGbjKN A8U28hi5M3 HWApIEAiKQO5vFE8aQ3ooJ lnbjogbGVmdDsgdmVydGlj ACrcSUslY504LQLwyIwzIv BhdGllbnQg AJgsDJy5Z7JdRytlxXM+PC 88TKSdBH18dJDtuFJwz9fu iUr6WfPnUNIhXBP2iJpoIN kwh2SoGYOm O68zmDHev3I9ACCorHfkeG GkEuMxoJX7tL7xQAayuesv d3aavkrtCxkev1qokw99dR 00I71iGPtr ZHRoPSIzMCUiIHZhbGlnbj 6ymV1lZd8+PCOyoIM1uQI0 mP4nZYFeYpE8PGrnO469Dj RvcCIvPjxj h3yfj4dclAo0ZbA7QCCwvc LgsBulHIS7v4XmWd78H31d IHdpZHRoPSIyMCUiIHZhbG lqfu4fkN2p Ii8+FFGlvMR8tPY6wF3zVe ArGqH1EFjqC886IqIstFWx CrdsO35tB8WliQU+PHRyPj a5EJSuxTni JY0zwYMdVWghOx6qBFR3Ci HhPpFeFAndN2DwQDOksvsy qjbeqWN9ZGBkVZEehQ26Vt 9udDogMTBw mLUQnO3bsnqfv9bgyyhnTp CpQIYpMVu6VGs6TDZpqHqp LqEiSRI8FnA4TEX3rYFecK 1hbGlnbjog oO6lU5ObUWKdyshbTp18oC 8jUvUeJxJ4ZTxvJag+V0FH HbCCMQUIQKXTYQ6SXKRJNg wvdGQ+PHRk JFP6kGsgIOlyRCRtjU0hWU PfC0d1QwRqBzB3BRwmV4Sq FZIrfnsjZr04vA2eRpZkNl E6JNtxZ1Hv ufQ5CANzxMEiOPotVWX2L9 5pw7S5OSWgOVQbSUA3uEH4 bJ6tgJmrotzmzBPggJqwhe VydGljYWwt XKfgT454ZIVjkResDdCtTq J1HmD8OZu6Y1BtEvc3LQIm zWvqAU2dlNUaDPjfNs9uqI fubRgqCA5o GYWwzyfpKAUjjH3qSLZtmH WdcTycBX5vMBBtfbxbp311 HoIeTFD9ZZQmlNQrG8NwkW 9yOiAjMDAw ZUZxV5GptEErAXtgP687NL kbYzD2WUBhrvTgC7GnCTZb qVxoLfQ9s0L8Vy3qHDKLVL FyczwvdGQ+ ZETkTPR6vUloDFlfKTYnkS 2nSMPmX1y6ZfQoLgC7NGht E0ObZEAdiwltVh24dF5gMf JcNlM8KPqt M9AbvbZ4RXKryBLzCHidNB I7I33qe5F9NAZhXDAxHLV3 oHT4jG4ccJqqetubqDGviL sgdmVydGlj ZIqmNRuxQ853DPFntFtpHo ZFTUFMRTwvdGQ+PHRkIHN0 lWsmFHfbZLMwmZ0zDBTyR1 b5EvHsLrA5 YVnwE2EnCTShqlzwLe97eS 8bIcBqDfY5OSifC4XtltE1 NGKksUIcEJngUTE7F87yi4 L0ONSkFMSv JJB7qQI7yV0mmTvdlynwuV VmdDsgdmVydGljYWwtYWxp T830JXWrzXcdGmXeXAEnKL 5jeTwvdGQ+ KJ87ch86W9FyHpleAzy4XD MkLAO6nAJ8nS3jWDOjITva j4P6gBY8T5XhsxNtdf8rb1 xsYXBzZTog N49kxKAvy8T8KRZzjQS2OY KefWdkBkSteS29Owv+PGNv zBbfj9BtKptrn9ika2tvzH g5XdYkEGXp mmPiqTlmNSI9o3BhRe79F1 9sIHdpZHRoPSIzMCUiIHZh wWaado6ckP9pNp9+PGNvbC H2lKK8eD8y MtImVbM4SYjnR073PbGqqR MhQgotm7luw5nxaHc6PbQz OZLkznQtkBeoKOB1h9CgCw 38R7SbjMdr f8MdPbb6jq79hQOnd5S3zM I0O5TeEPTrcxmbtSTxqDpo KG6rVDKqaaduRJZcfH6pXB XhU0r0YhYj EbQ3ELcnO7UxnoU8GXHcwN VqDITuhJWVoF9tmoyek6dq pduvZoNzAVBaJHh9TVs9IT FsaWduOiBs LVX4WoS7DQM8kZJoxI3ycH fvlktzfA7wNup+SBl9i3xs fBXmEH6xyZI6FH85UD70jP Odm9L5dNG4 M1NzWYVgeakpqeillYQ9MI UdSHBuzS82Tq4dvOtrAm9j YYMiCCP2KJIpjLNqA7FymE 9yOiAjMDAw RXIuS7NbrQAiGOztR198TI kwCwB3HFGlnqUvV7MwVIJi oWxzZqQ3a9A5Zh8YOJ82JV 45DJ03hJXh p5A6rTN4H0KpBKWifmrzng pncJG6LZYcVEDxiG98Pz1t qPvfZt1sTKQuOVK3ZEMxcX DmG1PrwR9t VfGpOXYtRBWaQ5BfxICyJM nuV800GYfuDrK1BSHkbmKb P9OzGRHllBxyVyD6f0X6Jn 2TMo54CP45 MU00qZWbd5V8wQE9M3FkXK MlsichrgchtRV3OEZwUEZn gZ55Zt1mjHpuVs8vEDPcMH Q8UGGncKIh M3UbyC2nLsVkLSWsOTWaY4 LbfMYvUQkxZ396GZbzUrW1 NXTvoqHzV3RhUYNvjEnkLt W0r3J4Jy8I XSwgnrl1Z5OjHyonvKP+PC 02HGJuTE34xHIhuXUji4om oAc5PzTnVRNuAQW8xRsnEB xqj2FtMRLs Y29 (more content not included)... Normal [facility] .Auto Diff 03-21-2023 Auto Cass % 10 % Normal 07-24 [facility] Comment on above: Performed By: #### 7 349260, [id number], 7119300, 71595099, 6114516424, 7802449722, [id number] ####[facility] (DEFAULT)[address] [place] [address] 44359 Baso Abs# 0.1 x10 Normal 0.0-0.2 [facility] Comment on above: Performed By: #### 7 202731, [id number], 7247804, 19365481, 7491719875, 3418598316, 0196259427 ####[facility] (DEFAULT)[address] [place] [address] 24030 Basophils/100 WBC (Bld) 0.9 % Normal 0.2-2.0 [facility] Comment on above: Performed By: #### 7 132302, [id number], 9728557, 14163039, 0185758767, 5795092925, 7757865542 ####[facility] (DEFAULT)[address] [place] [address] 52141 Eos Abs# 0.0 x10 Normal 0.0-0.4 [facility] Comment on above: Performed By: #### 7 492521, 7515582536, 2576336, 54079201, 9141874154, 2062537611, 9714458922 ####[facility] (DEFAULT)[address] [place] [address] 20439 Eosinophils/100 WBC (Bld) 0.4 % Low 0.9-4.0 [facility] Comment on above: Performed By: #### 7 156808, 4941673206, 5606396, 73479477, 0162308912, 6232467866, 6952448042 ####[facility] (DEFAULT)[address] [place] [address] 27761 Lymph Abs# 1.8 x10 Normal 1.3-2.9 [facility] Comment on above: Performed By: #### 7 432307, 5451011141, 0988180, 64572261, 4826574382, 4619396911, 7558876378 ####[facility] (DEFAULT)[address] [place] [address] 37051 Lymphocytes/100 WBC (Bld) 27 % Normal 14-48 [facility] Comment on above: Performed By: #### 7 997511, 8352420008, 2837573, 43937653, 1059068330, 9415832264, 6968156901 ####[facility] (DEFAULT)[address] [place] [address] 63885 Cass Abs# 0.6 x10 Normal 0.0-0.8 [facility] Comment on above: Performed By: #### 7 572462, 9792996940, 3412153, 07910103, 7819465751, 2201564640, 9335757653 ####[facility] (DEFAULT)[address] [place] [address] 27851 Neut Abs# 4.0 x10 Normal 1.5-9.2 [facility] Comment on above: Performed By: #### 7 983922, 7673981353, 0015665, 44232789, 4889728974, 9898570689, 7705272944 ####[facility] (DEFAULT)[address] [place] [address] Neutrophils/100 WBC (Bld) 61 % Normal 44-88 [facility] Comment on above: Performed By: #### 7 496733, 5965931851, 8096289, 76445158, 4344117583, 8735191161, 3032707004 ####[facility] (DEFAULT)[address] [place] [address] ABORhon 03-21-2023 ABO and Rh group Nom (Bld) Hx Check: Found Anti-A: 4+ Anti-B: 0 Anti-D: 4+ DCon: NT A1: 0 B: 4+ ABORh Interp: A POS Invalid Interpretation Code [facility] Comment on above: Performed By: #### 1 [id number], [id number] ####[facility] (DEFAULT)[address] [place] [address] CBC w/ Auto Diffon 3 Erythrocyte distribution width (RBC) [Ratio] 13.4 % Normal 11.5-15.0 [facility] Comment on above: Performed By: #### 7 876147, 3956115439, 6193014, 31088829, 8163440605, 7279394763, 2975388678 ####[facility] (DEFAULT)[address] [place] [address] Hematocrit (Bld) [Volume fraction] 39.9 % Normal 33.7-40.4 [facility] Comment on above: Performed By: #### 7 180903, 6900605205, 2464478, 23199753, 0037704577, 3123565946, 4754976256 ####[facility] (DEFAULT)[address] [place] [address] Hemoglobin (Bld) [Mass/Vol] 13.8 g/dL Normal 11.3-15.9 [facility] Comment on above: Performed By: #### 7 273680, 4701446090, 3446368, 85980845, 2636539758, 2245340688, 2735626705 ####[facility] (DEFAULT)[address] [place] [address] Man Diff? Auto Invalid Interpretation Code [facility] Comment on above: Performed By: #### 7 098159, 5956357460, 7499432, 08265279, 0159028079, 9540355534, 3989807788 ####[facility] (DEFAULT)[address] [place] [address] 90590 MCH (RBC) [Entitic mass] 30 pg Normal 24-34 [facility] Comment on above: Performed By: #### 7 624166, 1919102722, 0936312, 35808540, 7430959251, 9048390217, 6279490193 ####[facility] (DEFAULT)[address] [place] [address] MCHC (RBC) [Mass/Vol] 34 g/dL Normal 26-37 [facility] Comment on above: Performed By: #### 7 647286, 2016349271, 9276893, 26463971, 1298288503, 2577387472, 9699101307 ####[facility] (DEFAULT)[address] [place] [address] 67198 MCV (RBC) [Entitic vol] 86 fL Normal 81-100 [facility] Comment on above: Performed By: #### 7 794166, 9473465193, 4695771, 70364408, 7839338767, 4542545986, 5485420421 ####[facility] (DEFAULT)[address] [place] [address] 12939 Platelet 245 x10 Normal 138-427 [facility] Comment on above: Performed By: #### 7 452416, 1930170721, 2419049, 21897902, 7948704263, 0856343978, 7331969091 ####[facility] (DEFAULT)[address] [place] [address] 44148 Platelet mean volume (Bld) [Entitic vol] 7.1 fL Normal 6.3-10.2 [facility] Comment on above: Performed By: #### 7 671579, 7511030473, 2955458, 94450703, 1697213526, 7997835743, 8129419141 ####[facility] (DEFAULT)[address] [place] [address] 07608 RBC 4.66 x10 Normal 3.70-5.30 [facility] Comment on above: Performed By: #### 7 732551, 4133110970, 5568638, 79988297, 7858437888, 7363203685, 3861790290 ####[facility] (DEFAULT)[address] [place] [address] 10624 WBC 6.5 x10 Normal 3.5-10.5 [facility] Comment on above: Performed By: #### 7 892202, 9885072366, 3779376, 16997603, 1517896042, 8183865675, 4298320728 ####[facility] (DEFAULT)[address] [place] [address] 35237 CMP Standardon 03-21-2023 eGFR Non AA >60 Invalid Interpretation Code [facility] Comment on above: Performed By: #### 7 991296, 2722955524, 4106276, 50773703, 0810046000, 1113585869, 6863579344 ####[facility] (DEFAULT)[address] [place] [address] 21362 eGFR AA >60 Invalid Interpretation Code [facility] Comment on above: Performed By: #### 7 887899, 2214468534, 9827427, 19747751, 7622688092, 2000427554, 4659290188 ####[facility] (DEFAULT)[address] [place] [address] 32758 Albumin [Mass/Vol] 4.3 g/dL Normal 3.5-5.0 [facility] Comment on above: Performed By: #### 7 992201, 0855545192, 1303292, 98117473, 4244366180, 9254792900, 9591534084 ####[facility] (DEFAULT)[address] [place] [address] 13020 Albumin/Globulin [Mass ratio] 1.2 {ratio} Low 1.4-2.6 [facility] Comment on above: Performed By: #### 7 473641, 2280956799, 5342935, 36184262, 6184534608, 9673874979, 6138615619 ####[facility] (DEFAULT)[address] [place] [address] 75842 Alk Phos 43 IU/L Normal 32-91 [facility] Comment on above: Performed By: #### 7 173998, 4813210332, 8369045, 96064647, 7658144303, 5539125489, 7941430683 ####[facility] (DEFAULT)[address] [place] [address] 39544 ALT [Catalytic activity/Vol] 23.0 U/L Normal 14.0-54.0 [facility] Comment on above: Performed By: #### 7 653218, 6637764188, 5277753, 89655867, 9580249400, 6710355525, 9280634124 ####[facility] (DEFAULT)[address] [place] [address] 94962 Anion gap [Moles/Vol] 9.7 mmol/L Normal 5.0-19.0 [facility] Comment on above: Performed By: #### 7 832811, 8307036441, 2747944, 87296209, 4029624136, 3825957587, 3998838441 ####[facility] (DEFAULT)[address] [place] [address] 16020 AST [Catalytic activity/Vol] 23 U/L Normal 15-41 [facility] Comment on above: Performed By: #### 7 650829, 3984503079, 6341464, 12221337, 8493262349, 4811264491, 7771745789 ####[facility] (DEFAULT)[address] [place] [address] 99666 Bili Total 0.8 mg/dL Normal 0.3-1.2 [facility] Comment on above: Performed By: #### 7 262625, 7962623415, 3492272, 79828035, 2081971323, 3821634479, 7229127095 ####[facility] (DEFAULT)[address] [place] [address] 71970 Calcium [Mass/Vol] 8.8 mg/dL Low 8.9-10.3 [facility] Comment on above: Performed By: #### 7 282734, 0552763043, 0988524, 71369755, 4595620184, 1904678316, 3732889214 ####[facility] (DEFAULT)[address] [place] [address] 23556 Chloride [Moles/Vol] 104 mmol/L Normal 101-111 [facility] Comment on above: Performed By: #### 7 194541, 5371968009, 9750366, 72408933, 2645890000, 2633371734, 2673525862 ####[facility] (DEFAULT)[address] [place] [address] 95834 CO2 [Moles/Vol] 22 mmol/L Normal 21-32 [facility] Comment on above: Performed By: #### 7 298853, 3550504179, 9871272, 78689726, 0460950132, 7756946694, 9939096801 ####[facility] (DEFAULT)[address] [place] [address] 62157 Creatinine [Mass/Vol] 0.45 mg/dL Low 0.60-1.30 [facility] Comment on above: Performed By: #### 7 930281, 4661116338, 4677225, 25147555, 4093030744, 7383393536, 2633173669 ####[facility] (DEFAULT)[address] [place] [address] 99630 Globulin (S) [Mass/Vol] 3.5 g/dL Normal 1.5-4.3 [facility] Comment on above: Performed By: #### 7 484347, 2647570609, 6370357, 19137848, 5241048731, 1642357505, 9303805053 ####[facility] (DEFAULT)[address] [place] [address] 62264 Glucose [Mass/Vol] 84.0 mg/dL Normal 74.0-118.0 [facility] Comment on above: Performed By: #### 7 336194, 4893954115, 3691196, 18551893, 1296409253, 7558662637, 0459147931 ####[facility] (DEFAULT)[address] [place] [address] 96162 Osmolality 262 mOsm/L Invalid Interpretation Code [facility] Comment on above: Performed By: #### 7 104942, 7649599569, 7046335, 18260938, 2920699359, 2117902439, 5764058993 ####[facility] (DEFAULT)[address] [place] [address] 13679 Potassium [Moles/Vol] 3.7 mmol/L Normal 3.6-5.1 [facility] Comment on above: Performed By: #### 7 420033, 3758459447, 5586673, 93452090, 9758862781, 7807446559, 1809352493 ####[facility] (DEFAULT)[address] [place] [address] 44838 Protein [Mass/Vol] 7.8 g/dL Normal 6.5-8.1 [facility] Comment on above: Performed By: #### 7 719624, 4602098514, 6403155, 84543081, 5419329107, 7803029710, 8727432017 ####[facility] (DEFAULT)[address] [place] [address] 88296 Sodium [Moles/Vol] 132.0 mmol/L Low 136.0-144.0 [facility] Comment on above: Performed By: #### 7 765039, 4661708168, 1431921, 81819159, 4756731906, 0298423570, 8305263132 ####[facility] (DEFAULT)[address] [place] [address] 31218 Urea nitrogen [Mass/Vol] 7 mg/dL Low 8-26 [facility] Comment on above: Performed By: #### 7 108496, 2786852268, 1355095, 57707495, 0344710936, 7861675423, 8365205051 ####[facility] (DEFAULT)[address] [place] [address] 56013 Urea nitrogen/Creatinine [Mass ratio] 15.5 mg/mg Normal 4.6-16.2 [facility] Comment on above: Performed By: #### 7 463661, 2053660900, 6216762, 87079489, 7497502118, 0066073337, 0063679393 ####[facility] (DEFAULT)[address] [place] [address] ED Clinical Summaryon 2022 ED Clinical Summary [facility] - Emergency Department [address] [place] [address] ED Clinical Summary PERSON INFORMATION Name: BETTY RAMIREZ Age: 27 Years Sex: FEMALE : 1995 MRN: Acct#: Visit Reason: Abdominal pain - ; Nausea; NAUSEA, ABD PAIN, 7 WEEKS Arrival: 03/21/2023 12:26:18 Discharge: 03/21/2023 17:51:00 LOS: 000 05:25 Check In: 03/21/2023 12:26:18 Checkout:03/21/2023 17:51:00 Address: [address] [place] [address] PCP: Caden Lauren MD PROVIDER INFORMATION Provider [...] EDUCATION INFORMATION Instructions: Nausea and Vomiting, Adult, Wurl-kt-Tbob; Warning Signs During Follow-Up: With: Address: When: Caden Lauren MD [facility] [id number] [address] Within 3 to 5 days DIAGNOSIS: 1:Abdominal with intrauterine ; 2:Nausea and vomiting in Patient Understands: Yes - Patient/family/caregiv er verbalizes understanding of instructions given Comment: [facility] ED Note-Nursingon 03-21-2023 ED Note-[facility]ing [facility]. Ambulated with a steady gait to ED room 8. Alert and oriented X4. C/O nausea, vomiting, and mid-left abdominal pain. Patient reports she believes she is approximately 7 week . Reports experiencing cramping and spotting approximately 1 weeks ago. History of preeclampsia. 3 Para 2. [facility] ED Patient Summaryon 023 ED Patient Summary [facility] - Emergency Department [address] [place], [place] [id number] PATIENT DISCHARGE INSTRUCTIONS Patient Information Name: BETTY RAMIREZ Age: 27 Years Date of : 1995 Reason For Visit: Abdominal pain - ; Nausea; NAUSEA, ABD PAIN, 7 WEEKS Arrival Time: 03/21/2023 12:26:18 Primary Care Physician: Caden Lauren MD Attending Physician: Armando Nieto DO Comment: Visit Diagnosis: Diagnoses This Visit Abdominal pain - ([id number]) Abdominal with intrauterine (O00.01) Nausea ([id number] g) Nausea and vomiting in (O21.9) The [...] alcohol and/or drug addiction problems; contact the [facility] 02/02 Crisis Hotline -Text 4HOPE to 937305. If you received any narcotics, sedation, or [...] documents With: Address: When: Caden Lauren MD [facility] [address] [facility] [address] [place] [address] Within 3 to 5 days Medication Information: The exam and treatment you received today in the [facility] Emergency Department were for an urgent problem and are not intended as complete care. It is important for you to follow up with a doctor, nurse practitioner, or physician?s volunteer assistant for ongoing care. If your symptoms [...] so we can reach you if necessary. [facility] Emergency Department has provided you with a complete list of medications post discharge. Please inform your ripsawyer/provider of your visit and for further instruction on these medications. Any specific questions regarding your chronic medications and dosages should be discussed with your primary care physician(s) and/or pharmacist. New Medications [facility] [id number], [address] [place], [place] [id number], [phone] ondansetron (ondansetron 4 mg oral tablet) 1 [...] Have cracked (more content not included)... Normal [facility] Extra Greenon 03-21-2023 Tube Collected Yes Invalid Interpretation Code [facility] Comment on above: Performed By: #### 7 [id number], [id number], [id number] #### [facility] (DEFAULT) [address] [place] [id number] Performed By: #### 7 [id number], [id number], [id number] ####[facility] (DEFAULT)[address] [place] [id number] RhIG.on 03-21-2023 RhIG. No. Vials RhI RhIG Candidate?: No Date to Give: [id number] RhIG Status: NA Normal [facility] Comment on above: Performed By: #### 1 [id number] ####[facility] (DEFAULT)[address] [place] [address] UA w Culture if Ind Standard on 03-21-2023 Breakpoint UA Normal [facility] Comment on above: Performed By: #### 1 [id number] ####[facility] (DEFAULT)[address] [place] [address] Color (U) Yellow Normal [facility] Comment on above: Performed By: #### 1 [id number] ####[facility] (DEFAULT)[address] [place] [address] Culture? Not Indicated Invalid Interpretation Code [facility] Comment on above: Result Comment: Resu lt created by rule GL_MAGR_ADD_UA_CULT1 Performed By: #### 1 [id number] ####[facility] (DEFAULT)[address] [place] [address] Glucose (U) [Mass/Vol] Negative Normal [facility] Comment on above: Performed By: #### 1 [id number] ####[facility] (DEFAULT)[address] [place] [address] Ketones Ql (U) Negative Normal [facility] Comment on above: Performed By: #### 1 [id number] ####[facility] (DEFAULT)[address] [place] [address] Micro? Not Indicated Invalid Interpretation Code [facility] Comment on above: Result Comment: Resu lt created by rule GL_MAGR_ADD_UA_MICRO Performed By: #### 1 [id number] ####[facility] (DEFAULT)[address] [place] [address] UA Bilirubin Negative Normal [facility] Comment on above: Performed By: #### 1 [id number] ####[facility] (DEFAULT)[address] [place] [address] UA Blood Negative Normal NEGATIVE [facility] Comment on above: Performed By: #### 1 [id number] ####[facility] (DEFAULT)[address] [place] [address] UA Clarity CLEAR Normal CLEAR [facility] Comment on above: Performed By: #### 1 [id number] ####[facility] (DEFAULT)[address] [place] [address] UA Leuk Est Negative Normal NEGATIVE [facility] Comment on above: Performed By: #### 1 [id number] ####[facility] (DEFAULT)[address] [place] [address] UA Nitrite Negative Normal NEGATIVE [facility] Comment on above: Performed By: #### 1 [id number] ####[facility] (DEFAULT)[address] [place] [address] UA pH 6.5 Normal 5-8 [facility] Comment on above: Performed By: #### 1 [id number] ####[facility] (DEFAULT)[address] [place] [address] UA Protein Negative Normal NEGATIVE [facility] Comment on above: Performed By: #### 1 [id number] ####[facility] (DEFAULT)[address] [place] [address] UA Spec Grav <=1.005 Normal 1.001-1.035 [facility] Comment on above: Performed By: #### 1 [id number] ####[facility] (DEFAULT)[address] [place] [address] UA Urobilinogen 0.2 mg/dL Normal 0.2-1.0 [facility] Comment on above: Performed By: #### 1 [id number] ####[facility] (DEFAULT)[address] [place] [id number] Urine Source Clean Catch Normal [facility] Comment on above: Performed By: #### 1 [id number] ####[facility] (DEFAULT)[address] [place] [address] US 1st Trimesteron 03-21-2023 US 1st Trimester [...] Parker MD 03/22/23 10:43 a Technologist: ARTHUR [facility] US Transvaginalon 03-21-2023 US Transvaginal CLINICAL [...] MD 03/22/23 10:43 a Technologist: ARTHUR Normal [facility] hCG Quantitativeon 3 hCG Quantitative 867709.0 mIU/mL High 0.0-0.6 [facility] Comment on above: Result Comment: Post -Menopausal Reference Range is: 0.1-11.6 mIU/mL Performed By: #### 7 [id number], [id number], [id number], [id number] ####[facility] (DEFAULT)[address] [place] [address] CBC AUTO DIFFon 04-12-2020 Basophils (Bld) [#/Vol] 0.0 103/ul Normal 0.0-0.1 [facility] Comment on above: Performed By: #### T NS #### [facility] [address], [place] [address] Mikal Roselyn Basophils/100 WBC (Bld) 0.4 % Normal 0.2-2.0 [facility] Comment on above: Performed By: #### T NS #### [facility] [address], [place] [address] Mikal Roselyn Eosinophils (Bld) [#/Vol] 0.1 103/ul Normal 0.0-0.7 [facility] Comment on above: Performed By: #### T NS #### [facility] [address], [place] [address] Mikal Roselyn Eosinophils/100 WBC (Bld) 0.7 % Critically low 0.9-7.0 [facility] Comment on above: Performed By: #### T NS #### [facility] [address] [place] [address] Mikal Roselyn Erythrocyte distribution width (RBC) [Ratio] 13.4 % Normal 11.0-15.0 [facility] Comment on above: Performed By: #### T NS #### [facility] [address] [place] [address] Mikal Roselyn Hematocrit (Bld) [Volume fraction] 34.1 % Critically low 36.0-48.0 [facility] Comment on above: Performed By: #### T NS #### [facility] [address] [place] [address] Mikal Roselyn Hemoglobin (Bld) [Mass/Vol] 10.9 g/dL Critically low 12.0-16.0 [facility] Comment on above: Performed By: #### T NS #### [facility] [address] [place] [address] Mikal Roselyn IG # 0.05 10e3/ul Critically high 0.00-0.03 [facility] Comment on above: Performed By: #### T NS #### [facility] [address] [place] [address] Mikal Roselyn IG % 0.5 % Normal 0.0-0.5 [facility] Comment on above: Performed By: #### T NS #### [facility] [address] [place] [address] Mikal Roselyn Lymphocytes (Bld) [#/Vol] 2.4 103/ul Normal 1.2-3.8 [facility] Comment on above: Performed By: #### T NS #### [facility] [address] [place] [address] Mikal Roselyn Lymphocytes/100 WBC (Bld) 22.5 % Normal 20.5-60.0 [facility] Comment on above: Performed By: #### T NS #### [facility] [address] [place], [place] [address] Mikal Roselyn MANUAL DIFF REQ NO Normal [facility] Comment on above: Performed By: #### T NS #### [facility] [address], [place] [address] Mikalrena Hensleyen MCH (RBC) [Entitic mass] 27.7 pg Normal 26.7-34.0 [facility] Comment on above: Performed By: #### T NS #### [facility] [address] [place], [place] [address] Mikalrena Dempsey MCHC (RBC) [Mass/Vol] 32.0 g/dL Normal 29.9-35.2 [facility] Comment on above: Performed By: #### T NS #### [facility] [address] [place], [place] [address] Mikalrena Dempsey MCV (RBC) [Entitic vol] 86.5 fL Normal 81.0-99.0 [facility] Comment on above: Performed By: #### T NS #### [facility] [address] [place], [place] [address] Mikal Roselyn Monocytes (Bld) [#/Vol] 1.4 103/ul Critically high 0.3-0.8 [facility] Comment on above: Performed By: #### T NS #### [facility] [address] [place], [place] [address] Mikal Roeslyn Monocytes/100 WBC (Bld) 12.4 % Critically high 1.7-12.0 [facility] Comment on above: Performed By: #### T NS #### [facility] [address] [place], [place] [address] Mikal Roselyn Neutrophils (Bld) [#/Vol] 6.9 103/ul Critically high 1.4-6.5 [facility] Comment on above: Performed By: #### T NS #### [facility] [address] [place], [place] [address] Mikal Roselyn Neutrophils/100 WBC (Bld) 63.5 % Normal 43.0-75.0 [facility] Comment on above: Performed By: #### T NS #### [facility] [address] [place], [place] [address] Mikal Roselyn Platelet mean volume (Bld) [Entitic vol] 9.9 fL Normal 9.5-13.5 [facility] Comment on above: Performed By: #### T NS #### [facility] [address] [place] [address] Mikal Roselyn Platelets (Bld) [#/Vol] 194 103/ul Normal 150-450 [facility] Comment on above: Performed By: #### T NS #### [facility] [address] [place] [address] Mikal Roselyn RBC (Bld) [#/Vol] 3.94 106/ul Critically low 4.20-5.[address] [facility] Comment on above: Performed By: #### T NS #### [facility] [address] [place], [place] [address] Mikal Roselyn WBC (Bld) [#/Vol] 10.9 103/ul Normal 4.0-11.0 [facility] Comment on above: Performed By: #### T NS #### [facility] [address] [place], [place] [address] Mikal Roselyn CBC AUTO DIFFon 04-10-2020 Basophils (Bld) [#/Vol] 0.0 103/ul Normal 0.0-0.1 [facility] Comment on above: Performed By: #### A 1C #### [facility] [address] [place], [place] [address] Mikal Roselyn Basophils/100 WBC (Bld) 0.2 % Normal 0.2-2.0 [facility] Comment on above: Performed By: #### A 1C #### [facility] [address] [place], [place] [address] Mikal Roselyn Eosinophils (Bld) [#/Vol] 0.0 103/ul Normal 0.0-0.7 [facility] Comment on above: Performed By: #### A 1C #### [facility] [address] [place], [place] [address] Mikal Roselyn Eosinophils/100 WBC (Bld) 0.2 % Critically low 0.9-7.0 [facility] Comment on above: Performed By: #### A 1C #### [facility] [address] [place], [place] [address] Mikal Roselyn Erythrocyte distribution width (RBC) [Ratio] 13.3 % Normal 11.0-15.0 [facility] Comment on above: Performed By: #### A 1C #### [facility] [address] [place] [address] Mikal Dempsey Hematocrit (Bld) [Volume fraction] 34.8 % Critically low 36.0-48.0 [facility] Comment on above: Performed By: #### A 1C #### [facility] [address] [place] [address] Mikal Roselyn Hemoglobin (Bld) [Mass/Vol] 11.4 g/dL Critically low 12.0-16.0 [facility] Comment on above: Performed By: #### A 1C #### [facility] [address] [place] [address] Mikalrena Dempsey IG # 0.04 10e3/ul Critically high 0.00-0.03 [facility] Comment on above: Performed By: #### A 1C #### [facility] [address] [place] [address] Mikal Roselyn IG % 0.5 % Normal 0.0-0.5 [facility] Comment on above: Performed By: #### A 1C #### [facility] [address] [place] [address] Mikalrena Dempsey Lymphocytes (Bld) [#/Vol] 1.4 103/ul Normal 1.2-3.8 [facility] Comment on above: Performed By: #### A 1C #### [facility] [address] [place] [address] Mikal Roselyn Lymphocytes/100 WBC (Bld) 16.3 % Critically low 20.5-60.0 [facility] Comment on above: Performed By: #### A 1C #### [facility] [address] [place], [place] [address] Mikal Dempsey MANUAL DIFF REQ NO Normal [facility] Comment on above: Performed By: #### A 1C #### [facility] [address] [place] [address] Mikalrena Dempsey MCH (RBC) [Entitic mass] 27.7 pg Normal 26.7-34.0 [facility] Comment on above: Performed By: #### A 1C #### [facility] [address] [place], [place] [address] Mikalrena Dempsey MCHC (RBC) [Mass/Vol] 32.8 g/dL Normal 29.9-35.2 [facility] Comment on above: Performed By: #### A 1C #### [facility] [address] [place], [place] [address] Mikalrena Dempesy MCV (RBC) [Entitic vol] 84.5 fL Normal 81.0-99.0 [facility] Comment on above: Performed By: #### A 1C #### [facility] [address] [place] [address] Mikal Roselyn Monocytes (Bld) [#/Vol] 1.1 103/ul Critically high 0.3-0.8 [facility] Comment on above: Performed By: #### A 1C #### [facility] [address] [place] [address] Mikal Roselyn Monocytes/100 WBC (Bld) 12.6 % Critically high 1.7-12.0 [facility] Comment on above: Performed By: #### A 1C #### [facility] [address] [place] [address] Mikal Roselyn Neutrophils (Bld) [#/Vol] 6.1 103/ul Normal 1.4-6.5 [facility] Comment on above: Performed By: #### A 1C #### [facility] [address] [place] [address] Mikal Roselyn Neutrophils/100 WBC (Bld) 70.2 % Normal 43.0-75.0 [facility] Comment on above: Performed By: #### A 1C #### [facility] [address] [place], [place] [address] Mikal Roselyn Platelet mean volume (Bld) [Entitic vol] 10.3 fL Normal 9.5-13.5 [facility] Comment on above: Performed By: #### A 1C #### [facility] [address] [place], [place] [address] Mikal Roselyn Platelets (Bld) [#/Vol] 232 103/ul Normal 150-450 [facility] Comment on above: Performed By: #### A 1C #### [facility] [address] [place] [address] Mikal Dempsey RBC (Bld) [#/Vol] 4.12 106/ul Critically low 4.20-5.40 [facility] Comment on above: Performed By: #### A 1C #### [facility] [address] [place] [address] Mikal Dempsey WBC (Bld) [#/Vol] 8.7 103/ul Normal 4.0-11.0 [facility] Comment on above: Performed By: #### A 1C #### [facility] [address] [place] [address] Mikal Dempsey DRUG SCREEN RAPID (URINE)on 04-10-2020 AMP Negative Normal NEGATIVE [facility] Comment on above: Performed By: #### A 1C #### [facility] [address] [place] [address] Mikal Dempsey BAR Negative Normal NEGATIVE [facility] Comment on above: Performed By: #### A 1C #### [facility] [address] [place] [address] Mikal Roselyn BUP Negative Normal NEGATIVE [facility] Comment on above: Performed By: #### A 1C #### [facility] [address] [place] [address] Mikal Roselyn BZO Negative Normal NEGATIVE [facility] Comment on above: Performed By: #### A 1C #### [facility] [address] [place] [address] Mikal Dempsey MADDY Negative Normal NEGATIVE [facility] Comment on above: Performed By: #### A 1C #### [facility] [address] [place] [address] Mikal Dempsey CUT-OFFS SEE BELOW Normal [facility] Comment on above: Result Comment: AMP [...] ng/mL Performed By: #### A 1C #### [facility] [address] [place] [address] DRUG CUT HEADER DRUG CLASS TEST SYST EM CUT-OFF CONCENTRATIONS ARE FOLLOWS: Normal [facility] Comment on above: Performed By: #### A 1C #### [facility] [address] [place] [address] Mikal Roselyn mAMP Negative Normal NEGATIVE [facility] Comment on above: Performed By: #### A 1C #### [facility] [address] [place] [address] Mikal Roselyn MTD Negative Normal NEGATIVE [facility] Comment on above: Performed By: #### A 1C #### [facility] [address] [place] [address] Mikal Roselyn OPI Negative Normal NEGATIVE [facility] Comment on above: Performed By: #### A 1C #### [facility] [address] [place] [address] Mikal Roselyn OXY Negative Normal NEGATIVE [facility] Comment on above: Performed By: #### A 1C #### [facility] [address] [place] [address] Mikal Roselyn PCP Negative Normal NEGATIVE [facility] Comment on above: Performed By: #### A 1C #### [facility] [address] [place], [place] [address] PPX Negative Normal NEGATIVE [facility] Comment on above: Performed By: #### A 1C #### [facility] [address] [place] [address] Mikal Roselyn TCA Negative Normal NEGATIVE [facility] Comment on above: Performed By: #### A 1C #### [facility] [address] [place] [address] Mikal Dempsey THC Negative Normal NEGATIVE [facility] Comment on above: Performed By: #### A 1C #### [facility] [address] [place] [address] Mikal Dempsey TYPE AND SCREENon 04-10-2020 TYPE AND SCREEN Negative Normal [facility] Comment on above: Performed By: #### A 1C #### [facility] [address] [place], [place] [address] Mikal Dempsey COVID-19 PCRon 04-06-2020 SARS-CoV-2, MAYCO Not Detected Normal Not Detected [facility] Comment on above: Result Comment: This nucleic acid amplification test was developed and its performance characteristics determined by [employer]. Nucleic acid amplification tests include PCR and [...] assay. Performed By: #### A 1C #### [facility] [address] [place], [place] [address] Mikal Dempsey DRUG SCREEN RAPID (URINE)on 04-05-2020 AMP Negative Normal NEGATIVE [facility] Comment on above: Performed By: #### A 1C #### [facility] [address] [place] [address] Mikal Dempsey BAR Negative Normal NEGATIVE [facility] Comment on above: Performed By: #### A 1C #### [facility] [address] [place] [address] Mikal Roselyn BUP Negative Normal NEGATIVE [facility] Comment on above: Performed By: #### A 1C #### [facility] [address] [place] [address] Mikal Roselyn BZO Negative Normal NEGATIVE [facility] Comment on above: Performed By: #### A 1C #### [facility] [address] [place] [address] Mikal Roselyn MADDY Negative Normal NEGATIVE [facility] Comment on above: Performed By: #### A 1C #### [facility] [address] [place] [address] Mikal Roselyn CUT-OFFS SEE BELOW Normal [facility] Comment on above: Result Comment: AMP [...] ng/mL Performed By: #### A 1C #### [facility] [address] [place] [address] [facility] CLASS TEST SYST EM CUT-OFF CONCENTRATIONS ARE FOLLOWS: Normal [facility] Comment on above: Performed By: #### A 1C #### [facility] [address] [place] [address] Mikal Roselyn mAMP Negative Normal NEGATIVE [facility] Comment on above: Performed By: #### A 1C #### [facility] [address] [place] [address] Mikal Roselyn MTD Negative Normal NEGATIVE [facility] Comment on above: Performed By: #### A 1C #### [facility] [address] [place] [address] Mikal Roselyn OPI Negative Normal NEGATIVE [facility] Comment on above: Performed By: #### A 1C #### [facility] [address] [place] [address] Mikal Roselyn OXY Negative Normal NEGATIVE [facility] Comment on above: Performed By: #### A 1C #### [facility] [address] [place] [address] Mikal Roselyn PCP Negative Normal NEGATIVE [facility] Comment on above: Performed By: #### A 1C #### [facility] [address] [place] [address] Mikal Roselyn PPX Negative Normal NEGATIVE [facility] Comment on above: Performed By: #### A 1C #### [facility] [address] [place] [address] Mikal Roselyn TCA Negative Normal NEGATIVE [facility] Comment on above: Performed By: #### A 1C #### [facility] [address] [place] [address] Mikal Roselyn THC Negative Normal NEGATIVE [facility] Comment on above: Performed By: #### A 1C #### [facility] [address] [place] [address] Mikal Roselyn US PREG BIOPHY W NON [...] LEFTY GALE Date: 2020-04-03 13:48 Normal [facility] US PREG BIOPHY W NON STRESSo n [...] by: VANCE DING Date: 2020-03-27 13:51 Normal [facility] CHLAMYDIA/GONOCOCCUS MAYCO ( AB/URINE/PAPon 03-23-2020 Chlamydia trachomatis, MAYCO Negative Normal Negative [facility] Comment on above: Performed By: #### A 1C #### [facility] [address], [place] [address] Mikal Dempsey Neisseria gonorrhoeae, MAYCO Negative Normal Negative [facility] Comment on above: Performed By: #### A 1C #### [facility] [address], [place] [address] Mikal Dempsey US PREG BIOPHY W NON [...] [place] Date: 2020-03-22 02:34 Normal [facility] GROUP B STREP CULTUREon S. agalactiae Ag Ql (Unsp spec) Culture Observations: Negative for Group B Streptococcus. Normal [facility] Comment on above: Performed By: #### A 1C #### [facility] [address] [place] [address] Mikal Dempsey US PREG GROWTHon 03-12-2020 US PREG GROWTH EXAMINATION: [...] LEFTY GALE Date: 2020-03-12 09:32 Normal [facility] COVID-19 PCRon 02-24-2020 SARS-CoV-2, MAYCO Not Detected Normal Not Detected [facility] Comment on above: Result Comment: This test was developed and its performance characteristics determined by [employer]. This test has not been FDA cleared [...] assay. Performed By: #### P REGQNT #### [facility] [address] [place], [place] [address] Mikal Roselyn CBC AUTO DIFFon 02-18-2020 Basophils (Bld) [#/Vol] 0.0 103/ul Normal 0.0-0.1 [facility] Comment on above: Performed By: #### P REGQNT #### [facility] [address] [place] [address] Mikal Roselyn Basophils/100 WBC (Bld) 0.2 % Normal 0.2-2.0 [facility] Comment on above: Performed By: #### P REGQNT #### [facility] [address] [place] [address] Mikal Roselyn Eosinophils (Bld) [#/Vol] 0.0 103/ul Normal 0.0-0.7 [facility] Comment on above: Performed By: #### P REGQNT #### [facility] [address] [place], [place] [address] Mikal Roselyn Eosinophils/100 WBC (Bld) 0.3 % Critically low 0.9-7.0 [facility] Comment on above: Performed By: #### P REGQNT #### [facility] [address] [place], [place] [address] Mikal Roselyn Erythrocyte distribution width (RBC) [Ratio] 13.0 % Normal 11.0-15.0 [facility] Comment on above: Performed By: #### P REGQNT #### [facility] [address] [place], [place] [address] Mikal Roselyn Hematocrit (Bld) [Volume fraction] 36.3 % Normal 36.0-48.0 [facility] Comment on above: Performed By: #### P REGQNT #### [facility] [address] [place] [address] Mikal Roselyn Hemoglobin (Bld) [Mass/Vol] 11.9 g/dL Critically low 12.0-16.0 [facility] Comment on above: Performed By: #### P REGQNT #### [facility] [address] [place] [address] Mikal Roselyn IG # 0.04 10e3/ul Critically high 0.00-0.03 [facility] Comment on above: Performed By: #### P REGQNT #### [facility] [address] [place] [address] Mikal Roselyn IG % 0.5 % Normal 0.0-0.5 [facility] Comment on above: Performed By: #### P REGQNT #### [facility] [address] [place] [address] Mikal Roselyn Lymphocytes (Bld) [#/Vol] 1.6 103/ul Normal 1.2-3.8 [facility] Comment on above: Performed By: #### P REGQNT #### [facility] [address] [place], [place] [address] Mikal Roselyn Lymphocytes/100 WBC (Bld) 18.9 % Critically low 20.5-60.0 [facility] Comment on above: Performed By: #### P REGQNT #### [facility] [address] [place], [place] [address] Mikal Roselyn MANUAL DIFF REQ NO Normal [facility] Comment on above: Performed By: #### P REGQNT #### [facility] [address] [place], [place] [address] Mikal Roselyn MCH (RBC) [Entitic mass] 29.5 pg Normal 26.7-34.0 [facility] Comment on above: Performed By: #### P REGQNT #### [facility] [address], [place] [address] Mikal Dempsey MCHC (RBC) [Mass/Vol] 32.8 g/dL Normal 29.9-35.2 [facility] Comment on above: Performed By: #### P REGQNT #### [facility] [address] [place] [id number] Mikalrena Dempsey MCV (RBC) [Entitic vol] 90.1 fL Normal 81.0-99.0 [facility] Comment on above: Performed By: #### P REGQNT #### [facility] [address] [place], [place] [address] Mikal Roselyn Monocytes (Bld) [#/Vol] 1.1 103/ul Critically high 0.3-0.8 [facility] Comment on above: Performed By: #### P REGQNT #### [facility] [address] [place] [address] Mikal Roselyn Monocytes/100 WBC (Bld) 12.6 % Critically high 1.7-12.0 [facility] Comment on above: Performed By: #### P REGQNT #### [facility] [address] [place], [place] [address] Mikal Roselyn Neutrophils (Bld) [#/Vol] 5.8 103/ul Normal 1.4-6.5 [facility] Comment on above: Performed By: #### P REGQNT #### [facility] [address] [place], [place] [address] Mikal Roselyn Neutrophils/100 WBC (Bld) 67.5 % Normal 43.0-75.0 [facility] Comment on above: Performed By: #### P REGQNT #### [facility] [address] [place], [place] [address] Mikal Roselyn Platelet mean volume (Bld) [Entitic vol] 9.6 fL Normal 9.5-13.5 [facility] Comment on above: Performed By: #### P REGQNT #### [facility] [address] [place], [place] [address] Mikal Roselyn Platelets (Bld) [#/Vol] 204 103/ul Normal 150-450 [facility] Comment on above: Performed By: #### P REGQNT #### [facility] [address] [place], [place] [address] Mikal Dempsey RBC (Bld) [#/Vol] 4.03 106/ul Critically low 4.20-5.[address] [facility] Comment on above: Performed By: #### P REGQNT #### [facility] [address] [place], [place] [address] Mikal Dempsey WBC (Bld) [#/Vol] 8.6 103/ul Normal 4.0-11.0 [facility] Comment on above: Performed By: #### P REGQNT #### [facility] [address] [place], [place] [address] Mikal Dempsey CULTURE URINEon 02-18-2020 CULTURE URINE Culture Observations : NORMAL GENITAL SIERRA. NO POTENTIAL PATHOGENS SEEN. Normal [facility] Comment on above: Performed By: #### P REGQNT #### [facility] [address] [place] [address] Mikal Dempsey LDHon 02-18-2020 LDH 142 U/L Normal 122-222 [facility] Comment on above: Performed By: #### P REGQNT #### [facility] [address] [place], [place] [address] Mikal Dempsey PROF 14(COMP METB)on 020 Albumin [Mass/Vol] 2.5 g/dL Critically low 3.5-5.0 The [facility] Comment on above: Performed By: #### P REGQNT #### [facility] [address] [place], [place] [address] Mikal Dempsey Albumin/Globulin [Mass ratio] 0.7 {ratio} Normal [facility] Comment on above: Performed By: #### P REGQNT #### [facility] [address] [place], [place] [address] Mikal Roselyn ALP [Catalytic activity/Vol] 107 U/L Normal 38-126 [facility] Comment on above: Performed By: #### P REGQNT #### [facility] [address] [address] Mikal Roselyn ALT [Catalytic activity/Vol] 16 U/L Normal 9-52 [facility] Comment on above: Performed By: #### P REGQNT #### [facility] [address] [place] [address] Mikal Roselyn Anion gap [Moles/Vol] 12.1 mmol/L Normal [facility] Comment on above: Performed By: #### P REGQNT #### [facility] [address] [address] Mikal Roselyn AST [Catalytic activity/Vol] 10 U/L Critically low 14-36 [facility] Comment on above: Performed By: #### P REGQNT #### [facility] [address] [place] [address] Mikal Roselyn Bilirubin Ql (U) 0.3 mg/dL Normal 0.2-1.3 [facility] Comment on above: Performed By: #### P REGQNT #### [facility] [address] [place] [address] Mikal Roselyn Calcium [Mass/Vol] 8.6 mg/dL Normal 8.4-10.2 [facility] Comment on above: Performed By: #### P REGQNT #### [facility] [address] [place] [address] Mikal Roselyn Chloride [Moles/Vol] 103 mmol/L Normal 98-107 [facility] Comment on above: Performed By: #### P REGQNT #### [facility] [address] [place] [address] Mikal Roselyn CO2 [Moles/Vol] 24.1 mmol/L Normal 22.0-30.0 [facility] Comment on above: Performed By: #### P REGQNT #### [facility] [address] [place] [address] Mikal Roselyn Creatinine [Mass/Vol] 0.52 mg/dL Normal 0.52-1.04 [facility] Comment on above: Performed By: #### P REGQNT #### [facility] [address] [place], [place] [address] Mikal Roselyn EGFR-AF RWANDAN >60 Normal >=60 [facility] Comment on above: Performed By: #### P REGQNT #### [facility] [address] [id number] Mikal Roselyn EGFR-NON AF RWANDAN >60 Normal >=60 [facility] Comment on above: Performed By: #### P REGQNT #### [facility] [address] [id number] Mikal Roselyn Globulin (S) [Mass/Vol] 3.7 g/dL Normal [facility] Comment on above: Performed By: #### P REGQNT #### [facility] [address] [address] Mikal Roselyn Glucose [Mass/Vol] 75 mg/dL Normal 74-106 [facility] Comment on above: Performed By: #### P REGQNT #### [facility] [address] [address] Mikal Roselyn Potassium [Moles/Vol] 4.2 mmol/L Normal 3.4-5.0 [facility] Comment on above: Performed By: #### P REGQNT #### [facility] [address] [address] Mikal Roselyn Protein [Mass/Vol] 6.2 g/dL Normal 6.1-8.2 [facility] Comment on above: Performed By: #### P REGQNT #### [facility] [address] [address] Mikal Roselyn Sodium [Moles/Vol] 135 mmol/L Critically low 137-[address] [facility] Comment on above: Performed By: #### P REGQNT #### [facility] [address] [address] Mikal Roselyn Urea nitrogen [Mass/Vol] 3.0 mg/dL Critically low 7.0-17.0 [facility] Comment on above: Performed By: #### P REGQNT #### [facility] [address] [id number] Mikal Roselyn Urea nitrogen/Creatinine [Mass ratio] 5.8 mg/mg Normal [facility] Comment on above: Performed By: #### P REGQNT #### [facility] [address] [place] [address] Mikal Roselyn UA (CLEAN/CATCH) RECEIVING WORKER/MICRO I F IND.on 02-18-2020 Bilirubin [Mass/Vol] Negative Normal NEGATIVE [facility] Comment on above: Performed By: #### P REGQNT #### [facility] [address] [place] [address] Mikal Roselyn BLOOD Negative Normal NEGATIVE [facility] Comment on above: Performed By: #### P REGQNT #### [facility] [address] [place] [address] Mikal Roselyn Clarity (U) SL CLOUDY Normal [facility] Comment on above: Performed By: #### P REGQNT #### [facility] [address] [place] [address] Mikal Roselyn Color (U) LT. YELLOW Normal YELLOW [facility] Comment on above: Performed By: #### P REGQNT #### [facility] [address] [place] [address] Mikal Roselyn Glucose [Mass/Vol] Negative Normal NEGATIVE [facility] Comment on above: Performed By: #### P REGQNT #### [facility] [address] [place] [address] Mikal Roselyn Ketones Ql (U) Negative Normal NEGATIVE [facility] Comment on above: Performed By: #### P REGQNT #### [facility] [address] [place] [address] Mikal Roselyn Nitrite Ql (U) Negative Normal NEGATIVE [facility] Comment on above: Performed By: #### P REGQNT #### [facility] [address] [place] [address] Mikal Roselyn pH (Bld) 6.5 Normal 5-9 [facility] Comment on above: Performed By: #### P REGQNT #### [facility] [address] [place] [address] Mikal Roselyn Protein [Mass/Vol] Negative Normal [facility] Comment on above: Performed By: #### P REGQNT #### [facility] [address] [id number] Mikal Dempsey SPEC GRAVITY 1.025 Normal 1.005-<=1.025 [facility] Comment on above: Performed By: #### P REGQNT #### [facility] [address] [address] Mikalrena Dempsey UR MICRO IND INDICATED Normal [facility] Comment on above: Performed By: #### P REGQNT #### [facility] [address] [address] Mikal Dempsey Urobilinogen Qn (U) 1.0 EU/dl Normal [facility] Comment on above: Performed By: #### P REGQNT #### [facility] [address] [place] [address] Mikal Dempsey WBC (Bld) [#/Vol] SMALL Normal NEGATIVE [facility] Comment on above: Performed By: #### P REGQNT #### [facility] [address] [place], [place] [address] Mikal Dempsey URIC ACID SERUMon 02-18-2020 Urate [Mass/Vol] 3.1 mg/dL Normal 2.5-6.2 [facility] Comment on above: Performed By: #### P REGQNT #### [facility] [address] [id number] Mikalrena Dempsey URINE MICROSCOPIC ONLYon Bacteria LM.HPF (Urine sed) [#/Area] SMALL Normal NONE SEEN [facility] Comment on above: Performed By: #### P REGQNT #### [facility] [address] [id number] Mikal Roselyn CAST NONE SEEN Normal NONE SEEN [facility] Comment on above: Performed By: #### P REGQNT #### [facility] [address] [place], [place] [address] Mikal Roselyn Crystals LM Nom (Urine sed) NONE SEEN Normal NONE SEEN [facility] Comment on above: Performed By: #### P REGQNT #### [facility] [address] [place] [address] Mikal Roselyn CULTURE INDICATED Normal [facility] Comment on above: Performed By: #### P REGQNT #### [facility] [address] [place], [place] [address] Mikal Roselyn Epithelial cells LM.HPF (Urine sed) [#/Area] FEW Normal [facility] Comment on above: Performed By: #### P REGQNT #### [facility] [address] [place] [address] Mikal Roselyn MUCOUS SMALL Normal NONE SEEN [facility] Comment on above: Performed By: #### P REGQNT #### [facility] [address] [place] [address] Mikal Roselyn RBC (U) [#/Vol] 0-2 Normal 0-2 [facility] Comment on above: Performed By: #### P REGQNT #### [facility] [address] [place] [address] Mikal Roselyn WBC (Bld) [#/Vol] 5-10 Normal NONE SEEN [facility] Comment on above: Performed By: #### P REGQNT #### [facility] [address] [place], [place] [address] Mikal Roselyn CBC AUTO DIFFon 01-03-2020 Basophils (Bld) [#/Vol] 0.0 103/ul Normal 0.0-0.1 [facility] Comment on above: Performed By: #### C BC #### [facility] [address] [place] [address] Mikal Roselyn Basophils/100 WBC (Bld) 0.4 % Normal 0.2-2.0 [facility] Comment on above: Performed By: #### C BC #### [facility] [address] [place], [place] [address] Mikal Roselyn Eosinophils (Bld) [#/Vol] 0.1 103/ul Normal 0.0-0.7 [facility] Comment on above: Performed By: #### C BC #### [facility] [address] [place] [address] Mikal Roselyn Eosinophils/100 WBC (Bld) 0.7 % Critically low 0.9-7.0 [facility] Comment on above: Performed By: #### C BC #### [facility] [address] [place], [place] [address] Mikal Roselyn Erythrocyte distribution width (RBC) [Ratio] 13.7 % Normal 11.0-15.0 [facility] Comment on above: Performed By: #### C BC #### [facility] [address] [place] [address] Mikal Roselyn Hematocrit (Bld) [Volume fraction] 37.8 % Normal 36.0-48.0 [facility] Comment on above: Performed By: #### C BC #### [facility] [address] [place] [address] Mikal Roselyn Hemoglobin (Bld) [Mass/Vol] 12.8 g/dL Normal 12.0-16.0 [facility] Comment on above: Performed By: #### C BC #### [facility] [address] [place], [place] [address] Mikal Roselyn IG # 0.09 10e3/ul Critically high 0.00-0.03 [facility] Comment on above: Performed By: #### C BC #### [facility] [address] [place], [place] [address] Mikal Roselyn IG % 1.2 % Critically high 0.0-0.5 [facility] Comment on above: Performed By: #### C BC #### [facility] [address] [place], [place] [address] Mikal Roselyn Lymphocytes (Bld) [#/Vol] 1.6 103/ul Normal 1.2-3.8 [facility] Comment on above: Performed By: #### C BC #### [facility] [address] [place], [place] [address] Mikal Roselyn Lymphocytes/100 WBC (Bld) 20.6 % Normal 20.5-60.0 [facility] Comment on above: Performed By: #### C BC #### [facility] [address] [place], [place] [address] Mikal Roselyn MANUAL DIFF REQ NO Normal [facility] Comment on above: Performed By: #### C BC #### [facility] [address] [place], [place] [address] Mikalrena Dempsey MCH (RBC) [Entitic mass] 31.4 pg Normal 26.7-34.0 [facility] Comment on above: Performed By: #### C BC #### [facility] [address] [place], [place] [address] Mikalrena Dempsey MCHC (RBC) [Mass/Vol] 33.9 g/dL Normal 29.9-35.2 [facility] Comment on above: Performed By: #### C BC #### [facility] [address] [place], [place] [address] Mikal Roselyn MCV (RBC) [Entitic vol] 92.6 fL Normal 81.0-99.0 [facility] Comment on above: Performed By: #### C BC #### [facility] [address] [place] [address] Mikal Roselyn Monocytes (Bld) [#/Vol] 0.9 103/ul Critically high 0.3-0.8 [facility] Comment on above: Performed By: #### C BC #### [facility] [address] [place], [place] [address] Mikal Roselyn Monocytes/100 WBC (Bld) 12.0 % Normal 1.7-12.0 [facility] Comment on above: Performed By: #### C BC #### [facility] [address] [place], [place] [address] Mikal Roselyn Neutrophils (Bld) [#/Vol] 4.9 103/ul Normal 1.4-6.5 [facility] Comment on above: Performed By: #### C BC #### [facility] [address] [place], [place] [address] Mikal Roselyn Neutrophils/100 WBC (Bld) 65.1 % Normal 43.0-75.0 [facility] Comment on above: Performed By: #### C BC #### [facility] [address] [place], [place] [address] Mikal Roselyn Platelet mean volume (Bld) [Entitic vol] 8.9 fL Critically low 9.5-13.5 [facility] Comment on above: Performed By: #### C BC #### [facility] [address] [place], [place] [address] Mikla Dempsey Platelets (Bld) [#/Vol] 205 103/ul Normal 150-450 [facility] Comment on above: Performed By: #### C BC #### [facility] [address] [place], [place] [address] Mikal Dempsey RBC (Bld) [#/Vol] 4.08 106/ul Critically low 4.20-5.[address] [facility] Comment on above: Performed By: #### C BC #### [facility] [address] [place], [place] [address] Mikal Dempsey WBC (Bld) [#/Vol] 7.6 103/ul Normal 4.0-11.0 [facility] Comment on above: Performed By: #### C BC #### [facility] [address] [place], [place] [address] Mikal Dempsey GLUCOSE - 1HRon 01-03-2020 Glucose [Mass/Vol] 87 mg/dL Normal 74-106 [facility] Comment on above: Performed By: #### C BC #### [facility] [address] [place] [address] Mikal Dempsey US PREG ANATOMY SINGLEon US PREG [...] by: VANCE DING Date: 2019-12-02 11:29 Normal [facility] PAP ACOG PANEL 3: 21 to 29on 10-07-2019 Age Gdln ACOG Testing 23- Normal [facility] Comment on above: Performed By: #### C BC #### [facility] [address] [address] Mikal Dempsey Chlamydia, Nuc. Acid Amp Negative Normal Negative [facility] Comment on above: Result Comment: Perf ormed at: =G Performed By: #### C BC #### [facility] [address] [address] Mikal Dempsey DIAGNOSIS: Comment Abnormal [facility] Comment on above: Result Comment: EPIT HELIAL CELL ABNORMALITY. ATYPICAL SQUAMOUS CELLS OF UNDETERMINED SIGNIFICANCE (ASC-US). Performed at: WB Performed By: #### C BC #### [facility] [address] [address] Mikalrena Dempsey Electronically signed by: Comment Normal [facility] Comment on above: Result Comment: Aretha Cheng MD, Pathologist Performed at: WB Performed By: #### C BC #### [facility] [address] [address] Mikal Dempsey Gonococcus, Nuc. Acid Amp Negative Normal Negative [facility] Comment on above: Result Comment: Perf ormed at: =G Performed By: #### C BC #### [facility] [address] [address] Mikal Dempsey HPV Aptima Positive Abnormal Negative [facility] Comment on above: Result Comment: This nucleic acid amplification test detects fourteen high-risk HPV types (16,18,31,33,35,39,45,51,52,56,58,59,66,68) without differentiation. Performed By: #### C BC #### [facility] [address] [place] [address] Mikal Dempsey Methodology: Comment Normal [facility] Comment on above: Result Comment: This liquid based ThinPrep(R) pap test was screened with the use of an image guided system. Performed at: WB Performed By: #### C BC #### [facility] [address] [place] [address] Mikal Dempsey Note: Comment Normal [facility] Comment on above: Result Comment: The [...] WB Performed By: #### C BC #### [facility] [address] [place] [address] Mikal Dempsey Pathologist Provided ICD10 Comment Normal [facility] Comment on above: Result Comment: R87. [id number] Performed at: WB Performed By: #### C BC #### [facility] [address] [place] [address] Mikal Dempsey Performed by: Comment Normal [facility] Comment on above: Result Comment: Perry Dial, [employer] Service Professional (ASCP) Performed at: WB Performed By: #### C BC #### [facility] [address] [place] [address] Mikal Dempsey Recommendation: Comment Abnormal [facility] Comment on above: Result Comment: Sugg est follow up as clinically appropriate. Performed at: WB Performed By: #### C BC #### [facility] [address] [place] [address] Mikal Dempsey Reflex Criteria: Comment Normal [facility] Comment on above: Result Comment: See below for HPV testing results. . Performed at: WB Performed By: #### C BC #### [facility] [address] [address] Mikal Dempsey Specimen adequacy: Comment Normal [facility] Comment on above: Result Comment: Sati sfactory for evaluation. No endocervical component is identified. An endocervical component is not commonly seen in the patient. Performed at: WB Performed By: #### C BC #### [facility] [address] [address] Mikal Dempsey . . Normal [facility] Comment on above: Result Comment: Perf ormed at: WB Performed By: #### C BC #### [facility] [address] [place] [address] Mikal Dempsey US PREG TVon 09-15-2019 US [...] IMPRESSION: Single live intrauterine . Normal [facility] BUNon 09-05-2019 Urea nitrogen [Mass/Vol] 8.0 mg/dL Normal 7.0-17.0 [facility] Comment on above: Performed By: #### D RUGRPD, UAMIC #### [facility] [address] [place] [address] Mikal Dempsey CBC AUTO DIFFon 09-05-2019 Basophils (Bld) [#/Vol] 0.0 103/ul Normal 0.0-0.1 [facility] Comment on above: Performed By: #### D MARLEN WHITEMIC #### [facility] [address] [place] [address] Mikal Roselyn Basophils/100 WBC (Bld) 0.5 % Normal 0.2-2.0 [facility] Comment on above: Performed By: #### MARLEN HIGGINSMIC #### [facility] [address] [place] [address] Mikal Roselyn Eosinophils (Bld) [#/Vol] 0.0 103/ul Normal 0.0-0.7 [facility] Comment on above: Performed By: #### MARLEN HIGGINSMIC #### [facility] [address] [place] [address] Mikal Roselyn Eosinophils/100 WBC (Bld) 0.2 % Critically low 0.9-7.0 [facility] Comment on above: Performed By: #### MARLEN HIGGINSMIC #### [facility] [address] [place] [address] Mikalrena Dempsey Erythrocyte distribution width (RBC) [Ratio] 12.8 % Normal 11.0-15.0 [facility] Comment on above: Performed By: #### MARLEN HIGGINSMIC #### [facility] [address] [place] [address] Mikal Roselyn Hematocrit (Bld) [Volume fraction] 40.0 % Normal 36.0-48.0 [facility] Comment on above: Performed By: #### MARLEN HIGGINSMIC #### [facility] [address] [place] [address] Mikal Roselyn Hemoglobin (Bld) [Mass/Vol] 13.7 g/dL Normal 12.0-16.0 [facility] Comment on above: Performed By: #### MARLEN HIGGINSMIC #### [facility] [address] [place] [address] Mikal Roselyn IG # 0.01 10e3/ul Normal 0.00-0.03 [facility] Comment on above: Performed By: #### MARLEN HIGGINSMIC #### [facility] [address] [place] [address] Mikal Roselyn IG % 0.2 % Normal 0.0-0.5 [facility] Comment on above: Performed By: #### D MARLEN WHITEMIC #### [facility] [address] [place], [place] [address] Mikal Roselyn Lymphocytes (Bld) [#/Vol] 1.5 103/ul Normal 1.2-3.8 [facility] Comment on above: Performed By: #### D CHRISTOPHER UAMIC #### [facility] [address] [place], [place] [address] Mikal Roselyn Lymphocytes/100 WBC (Bld) 24.3 % Normal 20.5-60.0 [facility] Comment on above: Performed By: #### Ernesto WHITE UAMIC #### [facility] [address] [place], [place] [address] Mikal Roselyn MANUAL DIFF REQ NO Normal [facility] Comment on above: Performed By: #### Ernesto WHITE UAMIC #### [facility] [address] [place], [place] [address] Mikal Roselyn MCH (RBC) [Entitic mass] 29.8 pg Normal 26.7-34.0 [facility] Comment on above: Performed By: #### Ernesto WHITE UAMIC #### [facility] [address] [place], [place] [address] Mikal Roselyn MCHC (RBC) [Mass/Vol] 34.3 g/dL Normal 29.9-35.2 [facility] Comment on above: Performed By: #### Ernesto WHITE UAMIC #### [facility] [address] [place], [place] [address] Mikal Roselyn MCV (RBC) [Entitic vol] 87.1 fL Normal 81.0-99.0 [facility] Comment on above: Performed By: #### Ernesto WHITE UAMIC #### [facility] [address] [place] [address] Mikal Roselyn Monocytes (Bld) [#/Vol] 0.7 103/ul Normal 0.3-0.8 [facility] Comment on above: Performed By: #### D CHRISTOPHER UAMIC #### [facility] [address] [id number] Mikal Roselyn Monocytes/100 WBC (Bld) 11.2 % Normal 1.7-12.0 [facility] Comment on above: Performed By: #### Ernesto WHITE UAMIC #### [facility] [address] [place], [place] [address] Mikal Roselyn Neutrophils (Bld) [#/Vol] 4.0 103/ul Normal 1.4-6.5 [facility] Comment on above: Performed By: #### Ernesto WHITE UAMIC #### [facility] [address] [place], [place] [address] Mikal Roselyn Neutrophils/100 WBC (Bld) 63.6 % Normal 43.0-75.0 [facility] Comment on above: Performed By: #### Ernesto WHITE UAMIC #### [facility] [address] [place], [place] [address] Mikal Roselyn Platelet mean volume (Bld) [Entitic vol] 8.9 fL Critically low 9.5-13.5 [facility] Comment on above: Performed By: #### Ernesto WHITE UAMIC #### [facility] [address] [place], [place] [address] Mikal Roselyn Platelets (Bld) [#/Vol] 260 103/ul Normal 150-450 [facility] Comment on above: Performed By: #### Ernesto WHITE UAMIC #### [facility] [address] [place], [place] [address] Mikal Roselyn RBC (Bld) [#/Vol] 4.59 106/ul Normal 4.20-5.40 [facility] Comment on above: Performed By: #### Ernesto WHITE UAMIC #### [facility] [address] [place], [place] [address] Mikal Roselyn WBC (Bld) [#/Vol] 6.3 103/ul Normal 4.0-11.0 [facility] Comment on above: Performed By: #### Ernesto WHITE UAMIC #### [facility] [address] [id number] Mikal Roselyn CREATININEon 09-05-2019 Creatinine [Mass/Vol] mg/dL Normal >=60 [facility] Comment on above: Performed By: #### Ernesto WHITE UAMIC #### [facility] [address] [place] [address] Mikal Roselyn Creatinine [Mass/Vol] 0.65 mg/dL Normal 0.52-1.04 [facility] Comment on above: Performed By: #### D CHRISTOPHER UAMIC #### [facility] [address] [place], [place] [address] Mikal Roselyn CREATININE CLEARon 0 CREA CLEARANCE 136.03 ml/min Critically high 75.00-115.00 [facility] Comment on above: Performed By: #### Ernesto WHITE UAMIC #### [facility] [address] [place] [address] Mikal Roselyn CREA, 24 HR UR 1287.99 mg/24 hr Normal 800.00-1, 800. 00 [facility] Comment on above: Performed By: #### Ernesto WHITE UAMIC #### [facility] [address] [place] [address] Mikal Roselyn UR TOT VOL 900 ml/24 HR Normal [facility] Comment on above: Performed By: #### Ernesto WHITE UAMIC #### [facility] [address] [place] [address] Miakl Roselyn URINE CREAT 143.11 mg/dL Normal 20.00-300.00 [facility] Comment on above: Performed By: #### Ernesto WHITE UAMIC #### [facility] [address] [place], [place] [address] Mikal Roselyn GLUCOSE - 1HRon 09-05-2019 Glucose [Mass/Vol] 94 mg/dL Normal 74-106 [facility] Comment on above: Performed By: #### C BC #### [facility] [address] [place] [address] Mikal Roselyn LDHon 09-05-2019 LDH 137 U/L Normal 122-222 [facility] Comment on above: Performed By: #### C BC #### [facility] [address] [place], [place] [address] Mikal Dempsey PROTEIN 24HR URINEon 020 T PROT, 24 HR UR 127.8 mg/24 hr Normal 42.0-225.0 [facility] Comment on above: Performed By: #### D CHRISTOPHER UAMIC #### [facility] [address] [place], [place] [address] Mikal Dempsey UR PROT 14.2 mg/dL Critically high <=12.0 [facility] Comment on above: Performed By: #### D CHRISTOPHER UAMIC #### [facility] [address] [place], [place] [address] Mikalrena Dempsey SGOTon 09-05-2019 AST [Catalytic activity/Vol] 14 U/L Normal 14-36 [facility] Comment on above: Performed By: #### D MARLEN WHITEMIC #### [facility] [address] [place], [place] [address] Mikalrena Hensleyen SGPTon 09-05-2019 ALT [Catalytic activity/Vol] 26 U/L Normal 9-52 [facility] Comment on above: Performed By: #### C BC #### [facility] [address] [place], [place] [address] Mikal Dempsey TSHon 09-05-2019 TSH Qn 0.807 uIU/mL Normal 0.470-4.[address] [facility] Comment on above: Performed By: #### C BC #### [facility] [address] [place], [place] [address] Mikal Roselyn TSH Qn SEE BELOW Normal [facility] Comment on above: Result Comment: <0.3 4 UIU/ml HYPERTHYROID 0.34-5.60 UIU/ml EUTHYROID >5.60 UIU/ml HYPOTHYROID Performed By: #### C BC #### [facility] [address] [place], [place] [address] Mikalrena Dempsey URIC ACID SERUMon 09-05-2019 Urate [Mass/Vol] 3.5 mg/dL Normal 2.5-6.2 [facility] Comment on above: Performed By: #### C BC #### [facility] [address] [place] [address] Mikal Dempsey HEP B SURFACE ANTIGEN SCREEN on 09-01-2019 HBsAg Screen Negative Normal Negative [facility] Comment on above: Performed By: #### H BSANS #### [facility] [address] [place] [address] Mikal Dempsey HEPATITIIS C VIRUS ANTIBODYo n 09-01-2019 Hep C Virus Ab <0.1 Normal 0.0-0.9 [facility] Comment on above: Result Comment: Nega tive: < 0.8 Indeterminate: 0.8 - 0.9 Positive: > 0.9 . The CDC recommends that a positive HCV antibody result be followed up with a HCV Nucleic Acid Amplification test (277035). Performed By: #### H CV #### [facility] [address] [place] [address] Mikal Roselyn HGB(ELECTP) FRACTION PROFILE on 09-01-2019 Hemoglobin (Bld) [Mass/Vol] 97.5 % Normal 96.4-98.8 [facility] Comment on above: Performed By: #### D CHRISTOPHER UAMIC #### [facility] [address] [place] [address] Mikal Roselyn Hgb A2 2.5 % Normal 1.8-3.2 [facility] Comment on above: Performed By: #### D CHRISTOPHER UAMIC #### [facility] [address] [place] [address] Mikal Roselyn Hgb C 0.0 % Normal 0.0 [facility] Comment on above: Performed By: #### D MARLEN WHITEMIC #### [facility] [address] [place] [address] Mikal Roselyn Hgb F 0.0 % Normal 0.0-2.0 [facility] Comment on above: Performed By: #### D MARLEN WHITEMIC #### [facility] [address] [place] [address] Mikal Roselyn Hgb S 0.0 % Normal 0.0 [facility] Comment on above: Performed By: #### D CHRISTOPHER UAMIC #### [facility] [address] [place] [address] Mikal Dempsey Hgb Solubility Negative Normal Negative [facility] Comment on above: Performed By: #### D CHRISTOPHER UAMIC #### [facility] [address] [place] [address] Mikal Dempsey Hgb Variant Normal [facility] Comment on above: Performed By: #### D CHRISTOPHER UAMIC #### [facility] [address] [place] [address] Mikla Dempsey Interpretation Comment Normal [facility] Comment on above: Result Comment: Norm al adult hemoglobin present. Performed By: #### D CHRISTOPHER UAMIC #### [facility] [address] [place] [address] Mikal Dempsey HIV 1 AND 2 WITH REFLEXon HIV Screen 4th Generation wRfx Non Reactive Normal Non Reactive [facility] Comment on above: Performed By: #### H IV12 #### [facility] [address] [place] [address] Mikal Dempsey RPR QUANTon 09-01-2019 Rapid Plasma Reagin, Quant Non Reactive Normal NonRea<1:1 [facility] Comment on above: Performed By: #### Ernesto WHITE UAMIC #### [facility] [address] [place] [address] Mikal Dempsey RUBELLA AB IGGon 09-01-2019 Rubella Antibodies, IgG 1.49 index Normal Immune >0.99 [facility] Comment on above: Result Comment: Non- immune <0.90 Equivocal 0.90 - 0.99 Immune >0.99 Performed By: #### D CHRISTOPHER UAMIC #### [facility] [address] [place] [address] Mikal Dempsey VARICELLA IGG ABon 0 Varicella Zoster IgG <135 Critically low Immune >165 [facility] Comment on above: Result Comment: Nega tive <135 Equivocal 135 - 165 Positive >165 A positive result generally indicates exposure to the pathogen or administration of specific immunoglobulins, but it is not indication of active infection or stage of disease. Performed By: #### D CHRISTOPHER, UAMIC #### [facility] [address] [place], [place] [address] Mikal Roselyn TYPE AND SCREENon 08-31-2019 TYPE AND SCREEN Negative Normal [facility] Comment on above: Performed By: #### T NS #### [facility] [address] [place], [place] [address] Mikal Roselyn CBC AUTO DIFFon 08-30-2019 Basophils (Bld) [#/Vol] 0.1 103/ul Normal 0.0-0.1 [facility] Comment on above: Performed By: #### C BC #### [facility] [address] [place] [address] Mikal Roselyn Basophils/100 WBC (Bld) 0.7 % Normal 0.2-2.0 [facility] Comment on above: Performed By: #### C BC #### [facility] [address] [place] [address] Mikal Roselyn Eosinophils (Bld) [#/Vol] 0.0 103/ul Normal 0.0-0.7 [facility] Comment on above: Performed By: #### C BC #### [facility] [address] [place], [place] [address] Mikal Roselyn Eosinophils/100 WBC (Bld) 0.3 % Critically low 0.9-7.0 [facility] Comment on above: Performed By: #### C BC #### [facility] [address] [place], [place] [address] Mikal Roselyn Erythrocyte distribution width (RBC) [Ratio] 13.2 % Normal 11.0-15.0 [facility] Comment on above: Performed By: #### C BC #### [facility] [address] [place], [place] [address] Mikal Roselyn Hematocrit (Bld) [Volume fraction] 43.0 % Normal 36.0-48.0 [facility] Comment on above: Performed By: #### C BC #### [facility] [address] [place], [place] [address] Mikal Roselyn Hemoglobin (Bld) [Mass/Vol] 14.1 g/dL Normal 12.0-16.0 [facility] Comment on above: Performed By: #### C BC #### [facility] [address] [place] [id number] Mikal Roselyn IG # 0.02 10e3/ul Normal 0.00-0.03 [facility] Comment on above: Performed By: #### C BC #### [facility] [address] [id number] Mikal Roselyn IG % 0.3 % Normal 0.0-0.5 [facility] Comment on above: Performed By: #### C BC #### [facility] [address] [place], [place] [address] Mikal Roselyn Lymphocytes (Bld) [#/Vol] 1.7 103/ul Normal 1.2-3.8 [facility] Comment on above: Performed By: #### C BC #### [facility] [address] [place], [place] [address] Mikal Roselyn Lymphocytes/100 WBC (Bld) 23.4 % Normal 20.5-60.0 [facility] Comment on above: Performed By: #### C BC #### [facility] [address] [place], [place] [address] Mikal Roselyn MANUAL DIFF REQ NO Normal [facility] Comment on above: Performed By: #### C BC #### [facility] [address] [id number] Mikal Roselyn MCH (RBC) [Entitic mass] 29.3 pg Normal 26.7-34.0 [facility] Comment on above: Performed By: #### C BC #### [facility] [address] [place], [place] [address] Mikal Roselyn MCHC (RBC) [Mass/Vol] 32.8 g/dL Normal 29.9-35.2 [facility] Comment on above: Performed By: #### C BC #### [facility] [address] [place], [place] [address] Mikal Roselyn MCV (RBC) [Entitic vol] 89.4 fL Normal 81.0-99.0 [facility] Comment on above: Performed By: #### C BC #### [facility] [address] [id number] Mikal Roselyn Monocytes (Bld) [#/Vol] 0.6 103/ul Normal 0.3-0.8 [facility] Comment on above: Performed By: #### C BC #### [facility] [address] [place], [place] [address] Mikal Roselyn Monocytes/100 WBC (Bld) 8.6 % Normal 1.7-12.0 [facility] Comment on above: Performed By: #### C BC #### [facility] [address] [place], [place] [address] Mikal Roselyn Neutrophils (Bld) [#/Vol] 4.9 103/ul Normal 1.4-6.5 [facility] Comment on above: Performed By: #### C BC #### [facility] [address] [place], [place] [address] Mikal Roselyn Neutrophils/100 WBC (Bld) 66.7 % Normal 43.0-75.0 [facility] Comment on above: Performed By: #### C BC #### [facility] [address] [place], [place] [address] Mikal Roselyn Platelet mean volume (Bld) [Entitic vol] 9.7 fL Normal 9.5-13.5 [facility] Comment on above: Performed By: #### C BC #### [facility] [address] [place], [place] [address] Mikal Roselyn Platelets (Bld) [#/Vol] 304 103/ul Normal 150-450 [facility] Comment on above: Performed By: #### C BC #### [facility] [address] [place], [place] [address] Mikal Roselyn RBC (Bld) [#/Vol] 4.81 106/ul Normal 4.20-5.40 [facility] Comment on above: Performed By: #### C BC #### [facility] [address] [place] [address] Mikal Dempsey WBC (Bld) [#/Vol] 7.4 103/ul Normal 4.0-11.0 [facility] Comment on above: Performed By: #### C BC #### [facility] [address] [place] [address] Mikal Dempsey CULTURE URINEon 08-30-2019 CULTURE URINE Culture Observations : Light growth of mixed genital sierra.No potential pathogens seen. Normal [facility] Comment on above: Performed By: #### U RCX #### [facility] [address] [place] [address] Mikal Dempsey DRUG SCREEN RAPID (URINE)on 08-30-2019 AMP Negative Normal NEGATIVE [facility] Comment on above: Performed By: #### D CHRISTOPHER, UAMIC #### [facility] [address] [place] [address] Mikal Roselyn BAR Negative Normal NEGATIVE [facility] Comment on above: Performed By: #### D CHRISTOPHER, UAMIC #### [facility] [address] [place] [address] Mikal Roselyn BUP Negative Normal NEGATIVE [facility] Comment on above: Performed By: #### D CHRISTOPHER, UAMIC #### [facility] [address] [place] [address] Mikal Roselyn BZO Negative Normal NEGATIVE [facility] Comment on above: Performed By: #### D CHRISTOPHER, UAMIC #### [facility] [address] [place] [address] Mikal Roselyn MADDY Positive Normal NEGATIVE [facility] Comment on above: Performed By: #### D RUGJOHND, UAMIC #### [facility] [address] [place] [address] Mikal Roselyn CUT-OFFS SEE BELOW Normal [facility] Comment on above: Result [...] Performed By: #### D CHRISTOPHER UAMIC #### [facility] [address] [place] [address] Mikal Roselyn DRUG CUT HEADER DRUG CLASS TEST SYST EM CUT-OFF CONCENTRATIONS ARE FOLLOWS: Normal [facility] Comment on above: Performed By: #### Ernesto WHITE UAMIC #### [facility] [address] [place] [address] Mikal Roselyn mAMP Negative Normal NEGATIVE [facility] Comment on above: Performed By: #### Ernesto WHITE UAMIC #### [facility] [address] [place] [address] Mikal Roselyn MTD Negative Normal NEGATIVE [facility] Comment on above: Performed By: #### Ernesto WHITE UAMIC #### [facility] [address] [place] [address] Mikal Roselyn OPI Negative Normal NEGATIVE [facility] Comment on above: Performed By: #### Ernesto WHITE UAMIC #### [facility] [address] [place] [address] Mikal Roselyn OXY Negative Normal NEGATIVE [facility] Comment on above: Performed By: #### Ernesto WHITE UAMIC #### [facility] [address] [place] [address] Mikal Roselyn PCP Negative Normal NEGATIVE [facility] Comment on above: Performed By: #### Ernesto WHITE UAMIC #### [facility] [address] [place] [address] Mikal Roselyn PPX Negative Normal NEGATIVE [facility] Comment on above: Performed By: #### Ernesto WHITE UAMIC #### [facility] [address] [place] [address] Mikal Roselyn TCA Negative Normal NEGATIVE [facility] Comment on above: Performed By: #### D CHRISTOPHER, UAMIC #### [facility] [address] [place], [place] [address] Mikal Hensleyen THC Negative Normal NEGATIVE [facility] Comment on above: Performed By: #### D MARYBETHD, UAMIC #### [facility] [address] [place], [place] [address] Mikal Hensleyen GLYCOHEMOGLOBIN A1Con 2019 Glucose [Mass/Vol] 85 mg/dL Normal [facility] Comment on above: Performed By: #### A 1C #### [facility] [address] [place], [place] [address] Mikal Hensleyen HbA1c (Bld) [Mass fraction] 4.6 % Normal <=6.0 [facility] Comment on above: Performed By: #### A 1C #### [facility] [address] [place], [place] [address] Mikal Hensleyen PREG QUANT HCGon 08-30-2019 HCG QUANT 22446.00 mIU/mL Normal [facility] Comment on above: Performed By: #### P REGQNT #### [facility] [address] [place], [place] [address] Mikal Dempsey HCG RANGE SEE BELOW Normal [facility] Comment on above: Result Comment: 5-50 0-1 WEEK 40-300 1-2 WEEKS 100-1,000 2-3 WEEKS 500-6,000 3-4 WEEKS 5,000-200,000 1-2 MONTHS 10,000-100,000 2-3 MONTHS 3,000-50,000 2ND TRIMESTER 1,000-50,000 3RD TRIMESTER Performed By: #### P REGQNT #### [facility] [address] [place], [place] [address] Mikal Dempsey UA RANDOM W/MICROSCOPICon Bacteria LM.HPF (Urine sed) [#/Area] SMALL Normal NONE SEEN [facility] Comment on above: Performed By: #### D PATRPD, UAMIC #### [facility] [address] [place], [place] [address] Mikal Dempsey Bilirubin [Mass/Vol] Negative Normal NEGATIVE [facility] Comment on above: Performed By: #### D CHRISTOPHER UAMIC #### [facility] [address] [place] [address] Mikal Roselyn BLOOD Negative Normal NEGATIVE [facility] Comment on above: Performed By: #### D CHRISTOPHER UAMIC #### [facility] [address] [place] [address] Mikal Roselyn CAST NONE SEEN Normal NONE SEEN [facility] Comment on above: Performed By: #### D CHRISTOPHER UAMIC #### [facility] [address] [place] [address] Mikal Roselyn Clarity (U) CLEAR Normal [facility] Comment on above: Performed By: #### D CHRISTOPHER UAMIC #### [facility] [address] [place] [address] Mikal Roselyn Color (U) YELLOW Normal YELLOW [facility] Comment on above: Performed By: #### D CHRISTOPHER UAMIC #### [facility] [address] [place] [address] Mikal Roselyn Crystals LM Nom (Urine sed) NONE SEEN Normal NONE SEEN [facility] Comment on above: Performed By: #### D CHRISTOPHER UAMIC #### [facility] [address] [place] [address] Mikal Roselyn Epithelial cells LM.HPF (Urine sed) [#/Area] FEW Normal [facility] Comment on above: Performed By: #### D CHRISTOPHER UAMIC #### [facility] [address] [place] [address] Mikal Roselyn Glucose [Mass/Vol] Negative Normal NEGATIVE [facility] Comment on above: Performed By: #### D CHRISTOPHER UAMIC #### [facility] [address] [place] [address] Mikal Roselyn Ketones Ql (U) Negative Normal NEGATIVE [facility] Comment on above: Performed By: #### D CHRISTOPHER UAMIC #### [facility] [address] [place] [address] Mikal Roselyn MUCOUS MODERATE Normal NONE SEEN [facility] Comment on above: Performed By: #### D MARYBETHD, UAMIC #### [facility] [address] [place], [place] [address] Mikal Roselyn Nitrite Ql (U) Negative Normal NEGATIVE [facility] Comment on above: Performed By: #### D MARYBETHD, UAMIC #### [facility] [address] [place], [place] [address] Mikal Roselyn pH (Bld) 6.0 Normal 5-9 [facility] Comment on above: Performed By: #### D CHRISTOPHER, UAMIC #### [facility] [address] [place], [place] [address] Mikal Roselyn Protein [Mass/Vol] Negative Normal [facility] Comment on above: Performed By: #### D CHRISTOPHER, UAMIC #### [facility] [address] [place] [id number] Mikal Roselyn RBC (Bld) [#/Vol] 0-2 Normal 0-2 [facility] Comment on above: Performed By: #### D CHRISTOPHER, UAMIC #### [facility] [address] [place], [place] [address] Mikal Roselyn SPEC GRAVITY 1.025 Normal 1.005-<=1.025 [facility] Comment on above: Performed By: #### D CHRISTOPHER, UAMIC #### [facility] [address] [place], [place] [address] Mikal Roselyn Urobilinogen Qn (U) 0.2 EU/dl Normal [facility] Comment on above: Performed By: #### D CHRISTOPHER, UAMIC #### [facility] [address] [place], [place] [address] Mikal Roselyn WBC (Bld) [#/Vol] Negative Normal NEGATIVE [facility] Comment on above: Performed By: #### D CHRISTOPHER, UAMIC #### [facility] [address] [place], [place] [address] Mikal Roselyn WBC (Bld) [#/Vol] 2-5 Normal NONE SEEN [facility] Comment on above: Performed By: #### D CHRISTOPHER, UAMIC #### [facility] [address] [place] [address] Mikal Dempsey Vital Signs Date Time Vital Sign Value Performing Clinician Ariana gama 08-17-2023 10:08-0500 Body mass index (BMI) [Ratio] 29.5 kg/m2 Lizbeth KEARNS Work Phone: [facility] 08-17-2023 10:08-0500 Body weight 70.82 kg Lizbeth KEARNS Work Phone: [facility] 08-17-2023 10:08-0500 Diastolic blood pressure 72 mm[Hg] Lizbeth KEARNS Work Phone: [facility] 08-17-2023 10:08-0500 Systolic blood pressure 116 mm[Hg] Lizbeth KEARNS Work Phone: [facility] Encounters Encounter Date Encounter Type Care Provider Facility Start: 09-17-2023 End: 09-17-2023 ambulatory ALEXANDER YAEL Not Available Start: 09-03-2023 End: 09-03-2023 ambulatory ALEXANDER YAEL Not Available Start: 08-17-2023 End: 08-17-2023 ambulatory LIZBETH DELONTE Not Available Start: 08-17-2023 End: 08-17-2023 Office outpatient visit 15 minutes Lizbeth KEARNS Work Phone: [facility] Comment on above: Third trimester preg herlinda Start: 08-03-2023 End: 08-03-2023 ambulatory ALEXANDER YAEL Not Available Start: 07-09-2023 End: 07-09-2023 Emergency department patient visit Baldo Baltazardavid Facility:[facility] Start: 07-02-2023 End: 07-02-2023 ambulatory ALEXANDER YAEL Not Available Start: 06-23-2023 End: 06-23-2023 Emergency department patient visit Caden M Leonidas Facility:[facility] Start: 05-28-2023 End: 05-28-2023 ambulatory LIZBETH MARTEL Not Available Start: 03-21-2023 End: 03-21-2023 Emergency department patient visit [facility] Leonidas Facility:[facility] Start: 04-17-2020 Patient encounter procedure SHAHNAZ CORONA Facility:[facility] Start: 04-10-2020 End: 04-13-2020 Evaluation and management of inpatient ALEAXNDER LAWRENCE Facility:[facility] Start: 04-05-2020 End: 04-06-2020 Patient encounter [...] Date Procedure Procedure Detail Performing Clinician Start: 08-17-2023 Urnls dip stick/tabl et rgnt non-auto w/o micrscp Lizbeth KEARNS Work Phone: Start: 04-12-2020 Insertion of Contrac eptive Device into Left Upper Arm Subcutaneous Tissue and Fascia, Percutaneous Approach SHAHNAZChristelle CORONA Start: 04-11-2020 Delivery of Products of Conception, External Approach SHAHNAZ CORONA Start: 04-11-2020 Drainage of Amniotic Fluid, Therapeutic from Products of Conception, Via Natural or Artificial Opening SHAHNAZ CORONA Start: 04-10-2020 Introduction of Horm one into Female Reproductive, Via Natural or Artificial Opening SHAHNAZ CORONA Plan of Treatment Date Care Activity Detail Author Start: 08-31-2023 End: 08-31-2023 Patient encounter procedure 08/31/2023 1:50 PM EST Routine [facility] [address] [place] [id number] Alexander Lawrence, [address] [place] [address] [facility] Payers Date Payer Category Payer Medicaid [id number] 2022 [facility] [place] [id number] 2022-Present [address] [place] [address] [id number] 1997 Unknown [id number] 2.16840.1.242357.3.579.2.593 1997 Unknown [id number] 2.16840.1.172259.3.579.2.593 1997 Unknown [id number] 2.16840.1.661040.3.579.2.593 1997 Unknown [id number] 2.840.1.065626.3.579.2.593 1997 Unknown [id number] 2.16840.1.781928.3.579.2.593 1997 Unknown [id number] 2.16840.1.123497.3.579.2.593 1997 Unknown [id number] 2.16840.1.489959.3.579.2.593 1997 Unknown [id number] 2.16840.1.982013.3.579.2.593 1997 Unknown [id number] 2.16.840.1.018938.3.579.2.593 1997 Unknown [id number] 2.16.840.1.802322.3.579.2.593 1997 Unknown [id number] 2.16.840.1.822089.3.579.2.593 1997 Unknown [id number] 2.16.840.1.488444.3.579.2.593 1997 Unknown [id number] 2.16.840.1.557260.3.579.2.593 1997 Unknown [id number] 2.16.840.1.848488.3.579.2.593 1997 Unknown [id number] 2.16.840.1.589448.3.579.2.593 1997 Unknown [id number] 2.16.840.1.683226.3.579.2.593 1997 Unknown [id number] 2.16.840.1.154119.3.579.2.593 1997 Unknown [id number] 2.16.840.1.809285.3.579.2.718 1997 Unknown [id number] 2.16.840.1.900119.3.579.2.718 1997 Unknown [id number] 2.16.840.1.463500.3.579.2.718 1997 Unknown [id number] 2.16.840.1.812347.3.579.2.1259 1997 Unknown [id number] 2.16.840.1.561111.3.579.2.1259 1997 Unknown [id number] 2.16.840.1.042263.3.579.2.1259 1997 Unknown [id number] 2.16.840.1.918317.3.579.2.1259 1997 Unknown [id number] 2.16.840.1.274000.3.579.2.1259 1997 Unknown [id number] 2.16.840.1.108286.3.579.2.1259 1959 Self-pay [id number] 1959 Unknown [id number] Social History Date Type Detail Facility Start: 04-17-2023 Tobacco smoking stat [facility] Never smoked tobacco [facility] Start: 08-17-2023 Alcohol intake Lifetime non-d jer (finding) [facility] Start: 04-17-2023 History of Social function [facility] Start: 04-17-2023 Tobacco use panel [facility] Start: 02-14-2023 [facility] Start: 1995 Sex Assigned At Female [facility] History of Present illness Narrative 08-17-2023 URMILA Ghosh - 08/17/2023 9:30 AM EST Note Date & Type Note Facility 08-17-2023 History of Presen t illness Narrative Reason for Appointment: Patient ID: Betty Ramirez is a 27 y.o. female who presents for Routine Visit Patient presents today for Return OB appointment. Patient presents today for a routine obstetrics appointment. Patient is currently 28w2d with a Estimated Date of Delivery: 11/07/23. Current Medications: has a current medication list which includes the following prescription(s): , aspirin, and mv-min-fe fum-fa-dha. Medical History: Active Ambulatory Problems Diagnosis Date Noted No Active Ambulatory Problems Resolved Ambulatory Problems Diagnosis Date Noted No Resolved Ambulatory Problems No Additional Past Medical History No family history on file. Social History Tobacco Use Smoking status: Never Smokeless tobacco: Not on file Substance Use Topics Alcohol use: Never Drug use: Not on file History reviewed. No pertinent surgical history. No Known Allergies Review of Systems: Review of Systems Constitutional: Negative. HENT: Negative. Eyes: Negative. Respiratory: Negative. Cardiovascular: Negative. Gastrointestinal: Negative. Genitourinary: Negative. Musculoskeletal: Negative. Skin: Negative. Neurological: Negative. All other systems reviewed and are negative. Hematological: Negative. Endocrine: Negative. Allergic/Immunologic: Negative. Objective Physical Exam Constitutional: Appearance: Normal appearance. She is normal weight. HENT: Head: Normocephalic. Cardiovascular: Rate and Rhythm: Normal rate. Pulses: Normal pulses. Pulmonary: Effort: Pulmonary effort is normal. Breath sounds: Normal breath sounds. Abdominal: Palpations: Abdomen is soft. Musculoskeletal: General: Normal range of motion. Neurological: General: No focal deficit present. Mental Status: She is alert and oriented to person, place, and time. Psychiatric: Mood and Affect: Mood normal. Behavior: Behavior normal. Thought Content: Thought content normal. Judgment: Judgment normal. Vitals and nursing note reviewed. Vitals: Estimated body mass index is 29.5 kg/m as calculated from the following: Height as of 04/26/19: 5' 1 . Weight as of this encounter: 156 lb 1.9 oz. BP: 116/72 Patient's last menstrual period was 01/31/2023. Assessment/Plan Encounter Diagnosis Name Primary? Third trimester Patient presents today for a routine obstetrics appointment. Patient is currently 28w2d . Patient states she is doing well but has complaints of being tired due to current . Patient has verbalizes frequent movement. labor precautions was discussed/given and patient was instructed to perform kick counts three times a day. Follow Up: Patient is to return to office in 2 week for routine OB appointment. Documented by URMILA Ghosh on behalf of: URMILA Ghosh documented in this encounter [facility] Clinical Note 07-09-2023 Note Date & Type [...] to help relieve symptoms, such as: ? Pcnk-mhb-wszzkvg cold medicines. ? Cough suppressants. Coughing is [...] other clear broths. General instructions ? Take ruuq-zvz-jlfoxnf and prescription medicines only as told by [...] and water are not available, use hand tinner automatic. ? Avoid touching your mouth, face, eyes, [...] symptoms may be (more content not included)... [facility] Clinical Note 06-23-2023 Note Date & [...] ? Medicines that treat allergies (antihistamines). ? Zbaw-asf-omnxupw pain relievers. ? If caused by bacteria, [...] home: Medicines ? Take, use, or apply ggjl-nax-iizzzpu and prescription medicines only as told by [...] and water are not available, use hand tinner automatic. ? Do not smoke. Avoid being around people who are smoking (secondhand smoke). ? Keep all follow-up visits. This is important. Contact a health care provider if: ? You have a fever. (more content not included)... [facility] Clinical Note 03-21-2023 Note Date & [...] ? Low-calorie sports drinks. ? Eat bland, dhhg-wr-bdzhqh foods in small amounts as you are able, such as: ? Bananas. ? Applesauce. ? Rice. ? Low-fat (lean) meats. ? [place]. ? Crackers. ? Avoid drinking fluids that have a lot of sugar or caffeine in them. This includes energy drinks, sports drinks, and soda. ? Avoid alcohol. ? Avoid spicy or fatty foods. General instructions ? Take uslj-wbb-jihumck and prescription medicines only as told by your doctor. ? Drink enough fluid to keep your pee (urine) pale yellow. ? Wash your hands often with soap and water for at least 20 seconds. If you cannot use soap and water, use hand tinner automatic. ? Make sure that everyone in your [...] doctor about eating and drinking. ? Take rhrp-zzj-nucowli and prescription medicines only as told by your doctor. ? Contact your doctor if your symptoms get worse or you have new symptoms. ? Keep all follow-up visits. This information is not intended to replace advice given to you by your health care provider. Make sure you discuss any questions you have with your health care provider. Document Revised: 01/03/2022 Document Reviewed: 01/03/2022 [employer] Patient Education ? 2022 [employer]. Obstetrics and Gynecology Warning Signs During During [...] back. ? Shortne (more content not included)... [facility] Evaluation note Note Date & Type Note Facility Evaluation note Diagnosis Third trimester state, incidental documented in this encounter [facility] Summary Purpose Family History No Family History Records FoundNo Family History Records FoundNo Family History Records Found Advance Directives No Advanced Directives Records FoundNo Advanced Directives Records FoundNo Advanced Directives Records Found Additional Source Comments INFORMATION SOURCE (unrecogn ized section and content) DATE CREATED AUTHOR [facility]/19/2020 [facility] DATE CREATED AUTHOR AUTHOR'S ORGANIZ ATION 07/23/2023 [facility] DATE CREATED AUTHOR AUTHOR'S ORGANIZ ATION 09/18/2023 [facility] EPIC Reason for Visit (unrecogniz ed section and content) Reason Comments Routine Visit FOR RECORDS PERTAINING TO PATIENTS WHO ARE [...] BE BASED ON THE PRIMARY CLINICAL RECORDS. [facility]. provides no warranty or guarantee of the accuracy or completeness of information in this document.
== END 2023-10-05 10:00 | disposition home or self-care (01) ==
LOC: NOMS 09:59
PROVIDERS: Visit Provider Obstetrics & Gynecology
DX: O36.60X0 Maternal care for excessive fetal growth, unspecified trimester, not applicable or unspecified (principal); O26.849 Uterine size-date discrepancy, unspecified trimester; Z3A.34 34 weeks gestation of pregnancy
CPT/HCPCS: 76816

== ENCOUNTER 2023-10-12 20:15 | Outpatient (REF) | payer MEDICAID, SELFPAY ==
--- OUTSIDE RECORDS SUMMARY | 2023-10-12 20:21 | XMS_ITS | CCD ---
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 G48urDRme4S2KPQvnOgvoP BoTzDvmMC8vK1mPEnvfitl i2dmupubVvspc6ibkg64tP 66U42gBOzs ZHRoPSIzMCUiIHZhbGlnbj 3xgY6tOt7+WCStiOG7wIT9 nD5tOMSqInO8KQggY452Ul RvcCIvPjxj d4fyr1cohQj2IoR0FBItpq XqbFzgBOK1w0MrTk34Y63f IHdpZHRoPSIyMCUiIHZhbG asky6xmQ6z Ii8+VIGecST5gLK8bM9kZa AaHnJ5VLuhQ454IzPtoTQb AymvI99yN7JjlCX+PHRyPj m3HNNfqWdb TB8yxEHkSZynZj7oCPS4Ww DbRhUbNEmlG7YtYUVrshdi myeznNM6PXHfKYNkjX90Qq 9udDogMTBw uMPHjM9arpzdr2prtqgiSp MkNVMeRFa6NJe6DFIveBsw FpIuZGO5QiN9JXZ2nOCeqR 1hbGlnbjog nF8lS9NfETHsdauaKq13aB 4oNsIfChL0SCnkHvo+V0FH DsRGNOJSDKCHHR4FTKMFBi wvdGQ+PHRk BIY6aTrrAHhkPOEvxX6qSM JdV1m7ImDpWgG4ZAznU9Qr DSAytxfcQk68wU7mVeZuVz N4UQejX2Eo ioI8GXAqjQTiDDaxPVY4D7 6vo6W8EVOmUDTmLKP5rWA5 gW3hvWcjxkovlMUxyTijud VydGljYWwt IHenM795GNLqpImaHiYrVn K8PvS1HMq5N0FiOlb5WZBd rRgjRR0zaTEfFTziOw7xhE fbfWqsIV1q AUDupsoqTHFtqF6vQAWaqR NgtChbCN1bWYIdbltmi087 OqBlQEB9BORnoAJoA3UerB 9yOiAjMDAw SIEaW8HcxNNcFEhnE859MC rzJjW4REIpmdZlD9StJYLh eRiaZeN1p3S7Lr4aVCLVHC FyczwvdGQ+ APHkARQ0tZtbGYmwWMUutF 5sXRZtM0r6GrTuHxQ7NIrm O5DxZYIflcscZb97cF6pMm BiQiG8NRbg Q9BoyfN8WFTmkEHsZOdjLC Z1P59pp4O6MUSdHEJwUJV2 mZZ6vF4coXwmmghlhYZdaW sgdmVydGlj KZucQHfiD137TRYubDiyPf ZFTUFMRTwvdGQ+PHRkIHN0 yNwuAZprJJMxbG6aLQTxN4 y1UaHbKhZ9 FQdaX3XiLISvlvjzMh90lB 8hLaLjEsG0DWqwQ2XzqtP6 RFEqoTNeNJzaHKH8K34wl6 K9WCYtBEEb MJC8vVR3rU9mpDnsjuoznI VmdDsgdmVydGljYWwtYWxp J689CRTivNbyLyMdODDcXB 5jeTwvdGQ+ DU43js07G9WhCkasXuz7UK ZfFUB8wWJ8dZ8eBFPjUUtj y0S4gKW3Y4WpuyLyas5gp9 xsYXBzZTog R77xxKDso4O7JHEyfVO9EC PxdTpkEwWquV10Obi+PGNv dNhgj6OlGmftv7tpo2yeaH w0LsAbKZKl wrMnkSlbWOQ7y8KqDx17E8 9sIHdpZHRoPSIzMCUiIHZh gLmdmo1uqN7sTw5+PGNvbC E9bNZ1hL1e GkAzTlD3LBwiO273KxOgeL EvBaqzf3vge1kgrHo5MbJg RZAfhoCgeBghKAF5z7XzBn 84Q7OecSgr c0RsTyl1th60hRYnq9L9lN M0Z4WuJGXpkphklORnzRlg EF2jNAIbmzyfVRNfjH3gZI MjT3e5LrJn JwW4YMhpC1JyefN9GTLzyF VfLOGjsEBNpX4czasuf8kk uecyEkSzBVZsLPo1JLo8GQ FsaWduOiBs UEJ2JqM2ATV4yNPhlU9dsJ eoempbwK9xPxy+RZt3n2rr kVUjVP0luIO5MM82VI69bW Iko9I1nQO0 Q6QlQIMiljydinbpdQT2HY XiLJGtdU11Eg1qbPeiLq4v HBJkSUW6FMGngKUbK8MphV 9yOiAjMDAw JURlY1FlwYZqLXloA384TW qlUmP0VAAofvLkI7BmIBRc dVhpArX4q1H6Os2QXI06CU 83IB84gTPj v5S0kQF4W0HuUQLypwexpb mdmVO1VQDcVDWdmC39Oi8f nSioAk5pMYJaRKK6WYJrfH AvX3ExmI7m UqXwYAQdMSXsA7YcvGTfPM izD616OStdZsU7IDOntvOt N6XcZUCawYmdIzG2n0F0Cl 7FRr60CV42 KC42bZQnk0Q2eLY3U0SfOV BctnacasqhpKM7NGLeVPJb qH36Gf1qyCerUi8bAOUbUD E9ADTrhPOv W1FtyI1pQzEjPWVpUMYiN3 WhsZSuOUrfV438VHmrClF2 GDInntYdM5XvTIQobYqxBl V3o1S0Po1L SFzjeqy2A2GhLnhbsED+PC 37FTCiTU74vSBuuJWuj9qq lYz3PtNnBLRsXUY7hClqMG vjv1YnYKMa Y29 (more content not included)... Normal [facility] .Auto Diff 03-21-2023 Auto [place] % 10 % Normal 07-24 [facility] Comment on above: Performed By: #### 7 353650, [id number], 7014241, 83320222, 3233017781, 6262385838, 8558639426 ####[facility] (DEFAULT)[address] [place] [address] 32785 Baso Abs# 0.1 x10 Normal 0.0-0.2 [facility] Comment on above: Performed By: #### 7 384139, [id number], 4660961, 26224555, 2409749691, 5942416698, 4140977774 ####[facility] (DEFAULT)[address] [place] [address] 09395 Basophils/100 WBC (Bld) 0.9 % Normal 0.2-2.0 [facility] Comment on above: Performed By: #### 7 565133, 0659166967, 5196354, 99092476, 4893172403, 9420771916, 8910140823 ####[facility] (DEFAULT)[address] [place] [address] 10246 Eos Abs# 0.0 x10 Normal 0.0-0.4 [facility] Comment on above: Performed By: #### 7 062388, 7673819743, 0139438, 94777875, 7225460562, 1042560466, 3930395391 ####[facility] (DEFAULT)[address] [place] [address] 93164 Eosinophils/100 WBC (Bld) 0.4 % Low 0.9-4.0 [facility] Comment on above: Performed By: #### 7 037392, 2599372877, 7845596, 61509008, 4031773628, 4272857072, 2497137888 ####[facility] (DEFAULT)[address] [place] [address] 32672 Lymph Abs# 1.8 x10 Normal 1.3-2.9 [facility] Comment on above: Performed By: #### 7 863895, 5562935410, 4043947, 36117130, 7389786903, 9821506659, 3993538189 ####[facility] (DEFAULT)[address] [place] [address] 15825 Lymphocytes/100 WBC (Bld) 27 % Normal 14-48 [facility] Comment on above: Performed By: #### 7 903211, 3769620461, 7896778, 70282904, 9803194393, 6941555309, 1322492004 ####[facility] (DEFAULT)[address] [place] [address] 64175 [place] Abs# 0.6 x10 Normal 0.0-0.8 [facility] Comment on above: Performed By: #### 7 932645, 9371467361, 2125148, 49107156, 3609649286, 1072872981, 6012222311 ####[facility] (DEFAULT)[address] [place] [address] 53279 Neut Abs# 4.0 x10 Normal 1.5-9.2 [facility] Comment on above: Performed By: #### 7 883103, 2390377187, 1451820, 32969516, 0249279572, 3083332880, 8436026185 ####[facility] (DEFAULT)[address] [place] [address] Neutrophils/100 WBC (Bld) 61 % Normal 44-88 [facility] Comment on above: Performed By: #### 7 578025, 4745017417, 7900096, 23360920, 3335714284, 9273641972, 5843882874 ####[facility] (DEFAULT)[address] [place] [address] ABORhon 03-21-2023 ABO and Rh group Nom (Bld) Hx Check: Found Anti-A: 4+ Anti-B: 0 Anti-D: 4+ DCon: NT A1: 0 B: 4+ ABORh Interp: A POS Invalid Interpretation Code [facility] Comment on above: Performed By: #### 1 [id number], [id number] ####[facility] (DEFAULT)[address] [place] [address] CBC w/ Auto Diffon Erythrocyte distribution width (RBC) [Ratio] 13.4 % Normal 11.5-15.0 [facility] Comment on above: Performed By: #### 7 146389, 9158450014, 9401645, 22688718, 0212508463, 1917955098, 1606909165 ####[facility] (DEFAULT)[address] [place] [address] Hematocrit (Bld) [Volume fraction] 39.9 % Normal 33.7-40.4 [facility] Comment on above: Performed By: #### 7 407240, 7678970735, 5276741, 79204042, 6651795939, 3993468047, 6062101057 ####[facility] (DEFAULT)[address] [place] [address] Hemoglobin (Bld) [Mass/Vol] 13.8 g/dL Normal 11.3-15.9 [facility] Comment on above: Performed By: #### 7 446000, 2650703505, 8979238, 36289529, 9716882618, 0422886456, 4242107161 ####[facility] (DEFAULT)[address] [place] [address] Man Diff? Auto Invalid Interpretation Code [facility] Comment on above: Performed By: #### 7 436361, 4721817453, 7092823, 88514595, 4310901643, 0435467765, 3739253082 ####[facility] (DEFAULT)[address] [place] [address] 24007 MCH (RBC) [Entitic mass] 30 pg Normal 24-34 [facility] Comment on above: Performed By: #### 7 868239, 8597430561, 3528492, 95116640, 2655048964, 9502151836, 7303050759 ####[facility] (DEFAULT)[address] [place] [address] MCHC (RBC) [Mass/Vol] 34 g/dL Normal 26-37 [facility] Comment on above: Performed By: #### 7 228953, 3944297843, 1009357, 93084839, 8804828372, 1093272719, 2195602592 ####[facility] (DEFAULT)[address] [place] [address] 17749 MCV (RBC) [Entitic vol] 86 fL Normal 81-100 [facility] Comment on above: Performed By: #### 7 243649, 7198899608, 5864675, 87829932, 1613770358, 0052302463, 3275753503 ####[facility] (DEFAULT)[address] [place] [address] 93274 Platelet 245 x10 Normal 138-427 [facility] Comment on above: Performed By: #### 7 317960, 7592680305, 0071654, 24394416, 2410417804, 5479017642, 7128116360 ####[facility] (DEFAULT)[address] [place] [address] 71457 Platelet mean volume (Bld) [Entitic vol] 7.1 fL Normal 6.3-10.2 [facility] Comment on above: Performed By: #### 7 574601, 5489124109, 1239289, 89480878, 0105550677, 5251062474, 0702967277 ####[facility] (DEFAULT)[address] [place] [address] RBC 4.66 x10 Normal 3.70-5.30 [facility] Comment on above: Performed By: #### 7 904736, 3594586731, 6421805, 79454392, 9430666858, 8248699355, 3290227989 ####[facility] (DEFAULT)[address] [place] [address] 21266 WBC 6.5 x10 Normal 3.5-10.5 [facility] Comment on above: Performed By: #### 7 766839, 2370840417, 0857004, 63806637, 5146441013, 6735064303, 5247599775 ####[facility] (DEFAULT)[address] [place] [address] 24483 [facility] Standardon 03-21-2023 eGFR Non AA >60 Invalid Interpretation Code [facility] Comment on above: Performed By: #### 7 934233, 2788472964, 3479890, 30430744, 2927994907, 0728741799, 6104964558 ####[facility] (DEFAULT)[address] [place] [address] 25705 eGFR AA >60 Invalid Interpretation Code [facility] Comment on above: Performed By: #### 7 220677, 3822646371, 8063618, 18150291, 0179632820, 8672658890, 3060280276 ####[facility] (DEFAULT)[address] [place] [address] 74548 Albumin [Mass/Vol] 4.3 g/dL Normal 3.5-5.0 [facility] Comment on above: Performed By: #### 7 021946, 9670631859, 4474865, 73545084, 3646788961, 6303285110, 9162407375 ####[facility] (DEFAULT)[address] [place], [place] [address] Albumin/Globulin [Mass ratio] 1.2 {ratio} Low 1.4-2.6 [facility] Comment on above: Performed By: #### 7 505497, 8162229972, 1718216, 29237843, 0381206565, 2999931937, 0626646748 ####[facility] (DEFAULT)[address] [place] [address] 08332 Alk Phos 43 IU/L Normal 32-91 [facility] Comment on above: Performed By: #### 7 682421, 5949728514, 9232341, 53164077, 9754478422, 3433709442, 6685855950 ####[facility] (DEFAULT)[address] [place] [address] ALT [Catalytic activity/Vol] 23.0 U/L Normal 14.0-54.0 [facility] Comment on above: Performed By: #### 7 297767, 7740424124, 0403907, 39361629, 6292724067, 4367400211, 3358876143 ####[facility] (DEFAULT)[address] [place] [address] 30309 Anion gap [Moles/Vol] 9.7 mmol/L Normal 5.0-19.0 [facility] Comment on above: Performed By: #### 7 589344, 5500255689, 7504648, 05186902, 6377468165, 2894617687, 6989672809 ####[facility] (DEFAULT)[address] [place] [address] 45690 AST [Catalytic activity/Vol] 23 U/L Normal 15-41 [facility] Comment on above: Performed By: #### 7 988180, 6555713206, 3504720, 69752025, 8005052928, 2456529065, 2843647282 ####[facility] (DEFAULT)[address] [place] [address] 84519 Bili Total 0.8 mg/dL Normal 0.3-1.2 [facility] Comment on above: Performed By: #### 7 744360, 5466255944, 6273110, 22126718, 2224550156, 1343856504, 0024323063 ####[facility] (DEFAULT)[address] [place] [address] 27411 Calcium [Mass/Vol] 8.8 mg/dL Low 8.9-10.3 [facility] Comment on above: Performed By: #### 7 406607, 4883602267, 2534946, 71957295, 5531275029, 6641739571, 2685734251 ####[facility] (DEFAULT)[address] [place] [address] 48743 Chloride [Moles/Vol] 104 mmol/L Normal 101-111 [facility] Comment on above: Performed By: #### 7 348080, 0606545492, 3435790, 78396879, 4960104361, 5180879054, 7830532994 ####[facility] (DEFAULT)[address] [place] [address] 20734 CO2 [Moles/Vol] 22 mmol/L Normal 21-32 [facility] Comment on above: Performed By: #### 7 094198, 6111457260, 2226011, 43797227, 9093226016, 5860313644, 8284814725 ####[facility] (DEFAULT)[address] [place] [address] 81762 Creatinine [Mass/Vol] 0.45 mg/dL Low 0.60-1.30 [facility] Comment on above: Performed By: #### 7 218299, 8328822719, 1000426, 57108504, 9886587072, 2694843928, 9201572870 ####[facility] (DEFAULT)[address] [place] [address] 40021 Globulin (S) [Mass/Vol] 3.5 g/dL Normal 1.5-4.3 [facility] Comment on above: Performed By: #### 7 158375, 5524693561, 9047069, 04454928, 6149690198, 8637996897, 3699376758 ####[facility] (DEFAULT)[address] [place] [address] 90023 Glucose [Mass/Vol] 84.0 mg/dL Normal 74.0-118.0 [facility] Comment on above: Performed By: #### 7 524079, 6111630096, 9976666, 06605817, 5256045695, 0917039030, 3155610040 ####[facility] (DEFAULT)[address] [place] [address] 49197 Osmolality 262 mOsm/L Invalid Interpretation Code [facility] Comment on above: Performed By: #### 7 348332, 6612700167, 0586839, 14397946, 6040134448, 2858081595, 7250033583 ####[facility] (DEFAULT)[address] [place] [address] 11776 Potassium [Moles/Vol] 3.7 mmol/L Normal 3.6-5.1 [facility] Comment on above: Performed By: #### 7 872207, 0651043075, 9374874, 64516000, 5172728199, 7905871426, 6898307819 ####[facility] (DEFAULT)[address] [place] [address] 53225 Protein [Mass/Vol] 7.8 g/dL Normal 6.5-8.1 [facility] Comment on above: Performed By: #### 7 043175, 1257840167, 4771345, 71988539, 4025633077, 8236918738, 1911031896 ####[facility] (DEFAULT)[address] [place] [address] 35017 Sodium [Moles/Vol] 132.0 mmol/L Low 136.0-144.0 [facility] Comment on above: Performed By: #### 7 698091, 7199332521, 7688748, 48880217, 0827919877, 1982361157, 4645342893 ####[facility] (DEFAULT)[address] [place] [address] 04701 Urea nitrogen [Mass/Vol] 7 mg/dL Low 8-26 [facility] Comment on above: Performed By: #### 7 874862, 9967077495, 3169738, 96998161, 1084537873, 4746942848, 7274191703 ####[facility] (DEFAULT)[address] [place] [address] Urea nitrogen/Creatinine [Mass ratio] 15.5 mg/mg Normal 4.6-16.2 [facility] Comment on above: Performed By: #### 7 878835, 7386996482, 6551639, 04195367, 4605726853, 0542767039, 0479552749 ####[facility] (DEFAULT)[address] [place] [address] ED Clinical Summaryon 2022 ED Clinical Summary [facility] - Emergency Department [address] [place] [address] ED Clinical Summary PERSON INFORMATION Name: BETTY RAMIREZ Age: 27 Years Sex: FEMALE : 1995 MRN: Acct#: Visit Reason: Abdominal pain - ; Nausea; NAUSEA, ABD PAIN, 7 WEEKS Arrival: 03/21/2023 12:26:18 Discharge: 03/21/2023 17:51:00 LOS: 000 05:25 Check In: 03/21/2023 12:26:18 Checkout:03/21/2023 17:51:00 Address: [address] [place] [address] PCP: Caden Lauren MD PROVIDER INFORMATION Provider [...] EDUCATION INFORMATION Instructions: Nausea and Vomiting, Adult, Bnrr-yl-Plsu; Warning Signs During Follow-Up: With: Address: When: Caden Lauren MD [facility] [id number] [address] Within 3 to 5 days DIAGNOSIS: 1:Abdominal with intrauterine ; 2:Nausea and vomiting in Patient Understands: Yes - Patient/family/caregiv er verbalizes understanding of instructions given Comment: [facility] ED Note-Nursingon 03-21-2023 ED Note-Nursing Patient arrives to [facility] ED via private vehicle. Ambulated with a steady gait to ED room 8. Alert and oriented X4. C/O nausea, vomiting, and mid-left abdominal pain. Patient reports she believes she is approximately 7 week . Reports experiencing cramping and spotting approximately 1 weeks ago. History of preeclampsia. 3 Para 2. [facility] ED Patient Summaryon 023 ED Patient Summary [facility] - Emergency Department [address] [place] [address] PATIENT DISCHARGE INSTRUCTIONS Patient Information Name: BETTY RAMIREZ Age: 27 Years Date of : 1995 Reason For Visit: Abdominal pain - ; Nausea; NAUSEA, ABD PAIN, 7 WEEKS Arrival Time: 03/21/2023 12:26:18 Primary Care Physician: Caden Lauren MD Attending Physician: Armando Nieto DO Comment: Visit Diagnosis: Diagnoses This Visit Abdominal pain - ([id number]) Abdominal with intrauterine (O00.01) Nausea ([id number] g) Nausea and vomiting in (O21.9) The Pharmacy at [facility] is open Thursday through Thursday from 9A [...] alcohol and/or drug addiction problems; contact the [facility] 02/02 Crisis Hotline -Text 4HOPB cp [phone]. If you received any narcotics, sedation, or [...] With: Address: When: Caden Lauren MD [facility] [address] [place] [address] Within 3 to 5 days Medication Information: The exam and treatment you received today in the [facility] Emergency Department were for an urgent problem and are not intended as complete care. It is important for you to follow up with a doctor, nurse practitioner, or physician?s dental assistant for ongoing care. If your symptoms [...] can reach you if necessary. [facility] Emergency Department has provided you with a complete list of medications post discharge. Please inform your marketing technology coordinator/provider of your visit and for further instruction on these medications. Any specific questions regarding your chronic medications and dosages should be discussed with your primary care physician(s) and/or pharmacist. New Medications [facility] [id number], [address], [place] [id number], [phone] ondansetron (ondansetron 4 mg oral tablet) 1 [...] Have cracked (more content not included)... Normal [facility] 03-21-2023 Tube Collected Yes Invalid Interpretation Code [facility] Comment on above: Performed By: #### 7 [id number], [id number], [id number], [id number] #### [facility] (DEFAULT) [address] [place] [address] Performed By: #### 7 [id number], [id number], [id number], [id number], [id number] ####[facility] (DEFAULT)[address] [place] [address] 12574 RhIG.on 03-21-2023 RhIG. No. Vials RhI RhIG Candidate?: No Date to Give: [id number] RhIG Status: NA [facility] Comment on above: Performed By: #### 1 [id number] ####[facility] (DEFAULT)[address] [place] [address]7912 UA w Culture if Ind Standard on 03-21-2023 Breakpoint UA Normal [facility] Comment on above: Performed By: #### 1 [id number] ####[facility] (DEFAULT)[address] [place] [address]87 Color (U) Yellow Normal [facility] Comment on above: Performed By: #### 1 [id number] ####[facility] (DEFAULT)[address] [place] [address] 22809 Culture? Not Indicated Invalid Interpretation Code [facility] Comment on above: Result Comment: Resu lt created by rule GL_MAGR_ADD_UA_CULT1 Performed By: #### 1 [id number] ####[facility] (DEFAULT)[address] [place] [address] 25432 Glucose (U) [Mass/Vol] Negative Normal [facility] Comment on above: Performed By: #### 1 [id number] ####[facility] (DEFAULT)[address] [place] [address] 89535 Ketones Ql (U) Negative [facility] Comment on above: Performed By: #### 1 [id number] ####[facility] (DEFAULT)[address] [place] [address] 88290 Micro? Not Indicated Invalid Interpretation Code [facility] Comment on above: Result Comment: Resu lt created by rule GL_MAGR_ADD_UA_MICRO Performed By: #### 1 [id number] ####[facility] (DEFAULT)[address] [place] [address] 48040 UA Bilirubin Negative Normal [facility] Comment on above: Performed By: #### 1 [id number] ####[facility] (DEFAULT)[address] [place] [address] 43283 UA Blood Negative Normal NEGATIVE [facility] Comment on above: Performed By: #### 1 [id number] ####[facility] (DEFAULT)[address] [place] [address] 48926 UA Clarity CLEAR Normal CLEAR [facility] Comment on above: Performed By: #### 1 [id number] ####[facility] (DEFAULT)[address] [place] [address] 13982 UA Leuk Est Negative Normal NEGATIVE [facility] Comment on above: Performed By: #### 1 [id number] ####[facility] (DEFAULT)[address] [place] [address] 63277 UA Nitrite Negative Normal NEGATIVE [facility] Comment on above: Performed By: #### 1 [id number] ####[facility] (DEFAULT)[address] [place] [address] 17477 UA pH 6.5 Normal 5-8 [facility] Comment on above: Performed By: #### 1 [id number] ####[facility] (DEFAULT)[address] [place] [address] UA Protein Negative Normal NEGATIVE [facility] Comment on above: Performed By: #### 1 [id number] ####[facility] (DEFAULT)[address] [place] [address]797 UA Spec Grav <=1.005 Normal 1.001-1.035 [facility] Comment on above: Performed By: #### 1 [id number] ####[facility] (DEFAULT)[address] [place] [address]3859 UA Urobilinogen 0.2 mg/dL Normal 0.2-1.0 [facility] Comment on above: Performed By: #### 1 [id number] ####[facility] (DEFAULT)[address] [place] [address] Urine Source Clean Catch Normal [facility] Comment on above: Performed By: #### 1 [id number] ####[facility] (DEFAULT)[address] [place] [address] US 1st Trimesteron 03-21-2023 US 1st Trimester [...] Parker MD 03/22/23 10:43 a Technologist: ARTHUR [facility] Transvaginalon 03-21-2023 Transvaginal CLINICAL HISTORY: Left lower [...] 10:43 a Technologist: ARTHUR Normal [facility] hCG Quantitativeon 3 hCG Quantitative 684009.0 mIU/mL High 0.0-0.6 [facility] Comment on above: Result Comment: Post -Menopausal Reference Range is: 0.1-11.6 mIU/mL Performed By: #### 7 [id number], [id number], [id number] ####[facility] (DEFAULT)[address] [place] [address] CBC AUTO DIFFon 04-12-2020 Basophils (Bld) [#/Vol] 0.0 103/ul Normal 0.0-0.1 [facility] Comment on above: Performed By: #### T NS #### [facility] [address], [place] [address] Mikal Roselyn Basophils/100 WBC (Bld) 0.4 % Normal 0.2-2.0 [facility] Comment on above: Performed By: #### T NS #### [facility] [address] [place], [place] [address] Mikal Roselyn Eosinophils (Bld) [#/Vol] 0.1 103/ul Normal 0.0-0.7 [facility] Comment on above: Performed By: #### T NS #### [facility] [address] [place], [place] [address] Mikal Roselyn Eosinophils/100 WBC (Bld) 0.7 % Critically low 0.9-7.0 [facility] Comment on above: Performed By: #### T NS #### [facility] [address] [place] [id number] Mikal Dempsey Erythrocyte distribution width (RBC) [Ratio] 13.4 % Normal 11.0-15.0 [facility] Comment on above: Performed By: #### T NS #### [facility] [address] [place] [address] Mikal Roselyn Hematocrit (Bld) [Volume fraction] 34.1 % Critically low 36.0-48.0 [facility] Comment on above: Performed By: #### T NS #### [facility] [address] [place] [address] Mikal Roselyn Hemoglobin (Bld) [Mass/Vol] 10.9 g/dL Critically low 12.0-16.0 [facility] Comment on above: Performed By: #### T NS #### [facility] [address] [place] [address] Mikal Roselyn IG # 0.05 10e3/ul Critically high 0.00-0.03 [facility] Comment on above: Performed By: #### T NS #### [facility] [address] [place] [address] Mikalrena Dempsey IG % 0.5 % Normal 0.0-0.5 [facility] Comment on above: Performed By: #### T NS #### [facility] [address] [place] [address] Mikal Roselyn Lymphocytes (Bld) [#/Vol] 2.4 103/ul Normal 1.2-3.8 [facility] Comment on above: Performed By: #### T NS #### [facility] [address] [place], [place] [address] Mikal Roselyn Lymphocytes/100 WBC (Bld) 22.5 % Normal 20.5-60.0 [facility] Comment on above: Performed By: #### T NS #### [facility] [address] [place] [id number] Mikal Dempsey MANUAL DIFF REQ NO Normal [facility] Comment on above: Performed By: #### T NS #### [facility] [address] [place], [place] [address] Mikalrena Hensleyen MCH (RBC) [Entitic mass] 27.7 pg Normal 26.7-34.0 [facility] Comment on above: Performed By: #### T NS #### [facility] [address] [place], [place] [address] Mikalrena Hensleyen MCHC (RBC) [Mass/Vol] 32.0 g/dL Normal 29.9-35.2 [facility] Comment on above: Performed By: #### T NS #### [facility] [address] [place], [place] [address] Mikal Roselyn MCV (RBC) [Entitic vol] 86.5 fL Normal 81.0-99.0 [facility] Comment on above: Performed By: #### T NS #### [facility] [address] [place] [address] Mikal Roselyn Monocytes (Bld) [#/Vol] 1.4 103/ul Critically high 0.3-0.8 [facility] Comment on above: Performed By: #### T NS #### [facility] [address] [place] [address] Mikal Roselyn Monocytes/100 WBC (Bld) 12.4 % Critically high 1.7-12.0 [facility] Comment on above: Performed By: #### T NS #### [facility] [address] [place] [address] Mikal Roselyn Neutrophils (Bld) [#/Vol] 6.9 103/ul Critically high 1.4-6.5 [facility] Comment on above: Performed By: #### T NS #### [facility] [address] [place] [address] Mikal Roselyn Neutrophils/100 WBC (Bld) 63.5 % Normal 43.0-75.0 [facility] Comment on above: Performed By: #### T NS #### [facility] [address] [place], [place] [address] Mikal Roselyn Platelet mean volume (Bld) [Entitic vol] 9.9 fL Normal 9.5-13.5 [facility] Comment on above: Performed By: #### T NS #### [facility] [address] [place], [place] [address] Mikal Roselyn Platelets (Bld) [#/Vol] 194 103/ul Normal 150-450 [facility] Comment on above: Performed By: #### T NS #### [facility] [address] [place], [place] [address] Mikal Roselyn RBC (Bld) [#/Vol] 3.94 106/ul Critically low 4.20-5.40 [facility] Comment on above: Performed By: #### T NS #### [facility] [address] [place], [place] [address] Mikal Roselyn WBC (Bld) [#/Vol] 10.9 103/ul Normal 4.0-11.0 [facility] Comment on above: Performed By: #### T NS #### [facility] [address] [place], [place] [address] Mikal Roselyn CBC AUTO DIFFon 04-10-2020 Basophils (Bld) [#/Vol] 0.0 103/ul Normal 0.0-0.1 [facility] Comment on above: Performed By: #### A 1C #### [facility] [address] [place], [place] [address] Mikal Roselyn Basophils/100 WBC (Bld) 0.2 % Normal 0.2-2.0 [facility] Comment on above: Performed By: #### A 1C #### [facility] [address] [place], [place] [address] Mikal Roselyn Eosinophils (Bld) [#/Vol] 0.0 103/ul Normal 0.0-0.7 [facility] Comment on above: Performed By: #### A 1C #### [facility] [address] [place], [place] [address] Mikal Roselyn Eosinophils/100 WBC (Bld) 0.2 % Critically low 0.9-7.0 [facility] Comment on above: Performed By: #### A 1C #### [facility] [address] [place], [place] [address] Mikal Roselyn Erythrocyte distribution width (RBC) [Ratio] 13.3 % Normal 11.0-15.0 [facility] Comment on above: Performed By: #### A 1C #### [facility] [address] [place] [address] Mikal Dempsey Hematocrit (Bld) [Volume fraction] 34.8 % Critically low 36.0-48.0 [facility] Comment on above: Performed By: #### A 1C #### [facility] [address] [place] [address] Mikal Dempsey Hemoglobin (Bld) [Mass/Vol] 11.4 g/dL Critically low 12.0-16.0 [facility] Comment on above: Performed By: #### A 1C #### [facility] [address] [place] [address] Mikalrena Dempsey IG # 0.04 10e3/ul Critically high 0.00-0.03 [facility] Comment on above: Performed By: #### A 1C #### [facility] [address] [place] [address] Mikal Dempsey IG % 0.5 % Normal 0.0-0.5 [facility] Comment on above: Performed By: #### A 1C #### [facility] [address] [place] [address] Mikal Dempsey Lymphocytes (Bld) [#/Vol] 1.4 103/ul Normal 1.2-3.8 [facility] Comment on above: Performed By: #### A 1C #### [facility] [address] [place] [address] Mikal Dempsey Lymphocytes/100 WBC (Bld) 16.3 % Critically low 20.5-60.0 [facility] Comment on above: Performed By: #### A 1C #### [facility] [address] [place], [place] [address] Mikal Dempsey MANUAL DIFF REQ NO Normal [facility] Comment on above: Performed By: #### A 1C #### [facility] [address] [place], [place] [address] Mikal Dempsey MCH (RBC) [Entitic mass] 27.7 pg Normal 26.7-34.0 [facility] Comment on above: Performed By: #### A 1C #### [facility] [address] [place], [place] [address] Mikalrena Dempsey MCHC (RBC) [Mass/Vol] 32.8 g/dL Normal 29.9-35.2 [facility] Comment on above: Performed By: #### A 1C #### [facility] [address] [place], [place] [address] Mikalrena Dempsey MCV (RBC) [Entitic vol] 84.5 fL Normal 81.0-99.0 [facility] Comment on above: Performed By: #### A 1C #### [facility] [address] [place] [address] Mikal Roselyn Monocytes (Bld) [#/Vol] 1.1 103/ul Critically high 0.3-0.8 [facility] Comment on above: Performed By: #### A 1C #### [facility] [address] [place] [address] Mikal Roselyn Monocytes/100 WBC (Bld) 12.6 % Critically high 1.7-12.0 [facility] Comment on above: Performed By: #### A 1C #### [facility] [address] [place] [address] Mikal Roselyn Neutrophils (Bld) [#/Vol] 6.1 103/ul Normal 1.4-6.5 [facility] Comment on above: Performed By: #### A 1C #### [facility] [address] [place] [address] Mikal Roselyn Neutrophils/100 WBC (Bld) 70.2 % Normal 43.0-75.0 [facility] Comment on above: Performed By: #### A 1C #### [facility] [address] [place], [place] [address] Mikal Roselyn Platelet mean volume (Bld) [Entitic vol] 10.3 fL Normal 9.5-13.5 [facility] Comment on above: Performed By: #### A 1C #### [facility] [address] [place], [place] [address] Mikal Dempsey Platelets (Bld) [#/Vol] 232 103/ul Normal 150-450 [facility] Comment on above: Performed By: #### A 1C #### [facility] [address] [place] [address] Mikal Dempsey RBC (Bld) [#/Vol] 4.12 106/ul Critically low 4.20-5.40 [facility] Comment on above: Performed By: #### A 1C #### [facility] [address] [place] [address] Mikal Dempsey WBC (Bld) [#/Vol] 8.7 103/ul Normal 4.0-11.0 [facility] Comment on above: Performed By: #### A 1C #### [facility] [address] [place] [address] Mikalrena Dempsey DRUG SCREEN RAPID (URINE)on 04-10-2020 AMP Negative Normal NEGATIVE [facility] Comment on above: Performed By: #### A 1C #### [facility] [address] [place] [address] Mikal Roselyn BAR Negative Normal NEGATIVE [facility] Comment on above: Performed By: #### A 1C #### [facility] [address] [place] [address] Mikal Roselyn BUP Negative Normal NEGATIVE [facility] Comment on above: Performed By: #### A 1C #### [facility] [address] [place] [address] Mikal Roselyn BZO Negative Normal NEGATIVE [facility] Comment on above: Performed By: #### A 1C #### [facility] [address] [place] [address] Mikal Roselyn MADDY Negative Normal NEGATIVE [facility] Comment on above: Performed By: #### A 1C #### [facility] [address] [place] [address] Mikal Roselyn CUT-OFFS SEE BELOW Normal [facility] Comment on above: Result Comment: AMP [...] ng/mL Performed By: #### A 1C #### [facility] [address] [place] [address] DRUG CUT HEADER DRUG CLASS TEST SYST EM CUT-OFF CONCENTRATIONS ARE FOLLOWS: Normal [facility] Comment on above: Performed By: #### A 1C #### [facility] [address] [place] [address] Mikal Roselyn mAMP Negative Normal NEGATIVE [facility] Comment on above: Performed By: #### A 1C #### [facility] [address] [place] [address] Mikal Roselyn MTD Negative Normal NEGATIVE [facility] Comment on above: Performed By: #### A 1C #### [facility] [address] [place] [address] [facility] O[facility] Negative Normal NEGATIVE [facility] Comment on above: Performed By: #### A 1C #### [facility] [address] [place] [address] Mikal Roselyn OXY Negative Normal NEGATIVE [facility] Comment on above: Performed By: #### A 1C #### [facility] [address] [place] [address] PCP Negative Normal NEGATIVE [facility] Comment on above: Performed By: #### A 1C #### [facility] [address] [place] [address] PPX Negative Normal NEGATIVE [facility] Comment on above: Performed By: #### A 1C #### [facility] [address] [place] [address] TCA Negative Normal NEGATIVE [facility] Comment on above: Performed By: #### A 1C #### [facility] [address], [place] [address] Mikal Dempsey THC Negative Normal NEGATIVE [facility] Comment on above: Performed By: #### A 1C #### [facility] [address], [place] [address] Mikal Roselyn TYPE AND SCREENon 04-10-2020 TYPE AND SCREEN Negative Normal [facility] Comment on above: Performed By: #### A 1C #### [facility] [address] [place], [place] [address] Mikal Dempsey COVID-19 PCRon 04-06-2020 SARS-CoV-2, [facility] Not Detected Normal Not Detected [facility] Comment on above: Result Comment: This nucleic acid amplification test was developed and its performance characteristics determined by [facility]. Nucleic acid amplification tests include PCR and [...] assay. Performed By: #### A 1C #### [facility] [address] [place] [address] Mikal Dempsey DRUG SCREEN RAPID (URINE)on 04-05-2020 AMP Negative Normal NEGATIVE [facility] Comment on above: Performed By: #### A 1C #### [facility] [address] [place] [address] Mikal Dempsey BAR Negative Normal NEGATIVE [facility] Comment on above: Performed By: #### A 1C #### [facility] [address] [place] [address] Mikal Roselyn BUP Negative Normal NEGATIVE [facility] Comment on above: Performed By: #### A 1C #### [facility] [address] [place] [address] Mikal Roselyn BZO Negative Normal NEGATIVE [facility] Comment on above: Performed By: #### A 1C #### [facility] [address] [place] [address] Mikal Roselyn MADDY Negative Normal NEGATIVE [facility] Comment on above: Performed By: #### A 1C #### [facility] [address] [place] [address] CUT-OFFS SEE BELOW Normal [facility] [...] ng/mL Performed By: #### A 1C #### [facility] [address] [place] [address] DRUG CUT HEADER DRUG CLASS TEST SYST EM CUT-OFF CONCENTRATIONS ARE FOLLOWS: Normal [facility] Comment on above: Performed By: #### A 1C #### [facility] [address] [place] [address] [facility] mAMP Negative Normal NEGATIVE [facility] Comment on above: Performed By: #### A 1C #### [facility] [address] [place] [address] Mikal Roselyn MTD Negative Normal NEGATIVE [facility] Comment on above: Performed By: #### A 1C #### [facility] [address] [place] [address] Mikal Roselyn OPI Negative Normal NEGATIVE [facility] Comment on above: Performed By: #### A 1C #### [facility] [address] [place] [address] Mikal Roselyn OXY Negative Normal NEGATIVE [facility] Comment on above: Performed By: #### A 1C #### [facility] [address] [place] [address] Mikal Roselyn PCP Negative Normal NEGATIVE [facility] Comment on above: Performed By: #### A 1C #### [facility] [address] [place] [address] Mikal Roselyn PPX Negative Normal NEGATIVE [facility] Comment on above: Performed By: #### A 1C #### [facility] [address] [place] [address] Mikal Roselyn TCA Negative Normal NEGATIVE [facility] Comment on above: Performed By: #### A 1C #### [facility] [address] [place] [address] Imkal Roselyn THC Negative Normal NEGATIVE [facility] Comment on above: Performed By: #### A 1C #### [facility] [address] [place] [address] Mikal Roselyn US PREG BIOPHY W NON [...] LEFTY GALE Date: 2020-04-03 13:48 Normal [facility] US PREG BIOPHY W NON STRESSo [...] VANCE DING Date: 2020-03-27 13:51 Normal [facility] CHLAMYDIA/GONOCOCCUS [facility] ( AB/URINE/PAPon 03-23-2020 Chlamydia trachomatis, [facility] Negative Normal Negative [facility] Comment on above: Performed By: #### A 1C #### [facility] [address] [place] [address] Mikal Dempsey Neisseria gonorrhoeae, [facility] Negative Normal Negative [facility] Comment on above: Performed By: #### A 1C #### [facility] [address] [place] [address] Mikal Dempsey PREG BIOPHY W NON STRESSo [...] Negative for Group B Streptococcus. Normal [facility] Comment on above: Performed By: #### A 1C #### [facility] [address] [place] [address] Mikal Dempsey PREG GROWTHon 03-12-2020 PREG GROWTH [...] LEFTY GALE Date: 2020-03-12 09:32 Normal [facility] COVID-19 PCRon 02-24-2020 SARS-CoV-2, [facility] Not Detected Normal Not Detected [facility] Comment on above: Result Comment: This test was developed and its performance characteristics determined by [facility]. This test has not been FDA cleared [...] assay. Performed By: #### P REGQNT #### [facility] [address] [place] [address] Mikal Roselyn CBC AUTO DIFFon 02-18-2020 Basophils (Bld) [#/Vol] 0.0 103/ul Normal 0.0-0.1 [facility] Comment on above: Performed By: #### P REGQNT #### [facility] [address] [place] [address] Mikal Roselyn Basophils/100 WBC (Bld) 0.2 % Normal 0.2-2.0 [facility] Comment on above: Performed By: #### P REGQNT #### [facility] [address] [place] [address] Mikal Roselyn Eosinophils (Bld) [#/Vol] 0.0 103/ul Normal 0.0-0.7 [facility] Comment on above: Performed By: #### P REGQNT #### [facility] [address] [place], [place] [address] Mikal Roselyn Eosinophils/100 WBC (Bld) 0.3 % Critically low 0.9-7.0 [facility] Comment on above: Performed By: #### P REGQNT #### [facility] [address] [place], [place] [address] Mikal Roselyn Erythrocyte distribution width (RBC) [Ratio] 13.0 % Normal 11.0-15.0 [facility] Comment on above: Performed By: #### P REGQNT #### [facility] [address] [place] [id number] Mikalrena Dempsey Hematocrit (Bld) [Volume fraction] 36.3 % Normal 36.0-48.0 [facility] Comment on above: Performed By: #### P REGQNT #### [facility] [address] [place] [address] Mikal Roselyn Hemoglobin (Bld) [Mass/Vol] 11.9 g/dL Critically low 12.0-16.0 [facility] Comment on above: Performed By: #### P REGQNT #### [facility] [address] [place] [address] Mikal Roselyn IG # 0.04 10e3/ul Critically high 0.00-0.03 [facility] Comment on above: Performed By: #### P REGQNT #### [facility] [address] [place] [address] Mikal Roselyn IG % 0.5 % Normal 0.0-0.5 [facility] Comment on above: Performed By: #### P REGQNT #### [facility] [address] [place] [address] Mikal Roselyn Lymphocytes (Bld) [#/Vol] 1.6 103/ul Normal 1.2-3.8 [facility] Comment on above: Performed By: #### P REGQNT #### [facility] [address] [place] [address] Mikal Dempsey Lymphocytes/100 WBC (Bld) 18.9 % Critically low 20.5-60.0 [facility] Comment on above: Performed By: #### P REGQNT #### [facility] [address] [place], [place] [address] Mikal Dempsey MANUAL DIFF REQ NO Normal [facility] Comment on above: Performed By: #### P REGQNT #### [facility] [address] [place], [place] [address] Mikal Dempsey MCH (RBC) [Entitic mass] 29.5 pg Normal 26.7-34.0 [facility] Comment on above: Performed By: #### P REGQNT #### [facility] [address] [place] [id number] Mikal Dempsey MCHC (RBC) [Mass/Vol] 32.8 g/dL Normal 29.9-35.2 [facility] Comment on above: Performed By: #### P REGQNT #### [facility] [address] [place] [address] Mikalrena Dempsey MCV (RBC) [Entitic vol] 90.1 fL Normal 81.0-99.0 [facility] Comment on above: Performed By: #### P REGQNT #### [facility] [address] [place] [address] Mikal Roselyn Monocytes (Bld) [#/Vol] 1.1 103/ul Critically high 0.3-0.8 [facility] Comment on above: Performed By: #### P REGQNT #### [facility] [address] [place] [address] Mikal Roselyn Monocytes/100 WBC (Bld) 12.6 % Critically high 1.7-12.0 [facility] Comment on above: Performed By: #### P REGQNT #### [facility] [address] [place] [address] Mikal Roselyn Neutrophils (Bld) [#/Vol] 5.8 103/ul Normal 1.4-6.5 [facility] Comment on above: Performed By: #### P REGQNT #### [facility] [address] [place] [address] Mikal Roselyn Neutrophils/100 WBC (Bld) 67.5 % Normal 43.0-75.0 [facility] Comment on above: Performed By: #### P REGQNT #### [facility] [address] [place], [place] [address] Mikalrena Dempsey Platelet mean volume (Bld) [Entitic vol] 9.6 fL Normal 9.5-13.5 [facility] Comment on above: Performed By: #### P REGQNT #### [facility] [address] [place] [address] Mikalrena Dempsey Platelets (Bld) [#/Vol] 204 103/ul Normal 150-450 [facility] Comment on above: Performed By: #### P REGQNT #### [facility] [address] [place], [place] [address] Mikal Dempsey RBC (Bld) [#/Vol] 4.03 106/ul Critically low 4.20-5.40 [facility] Comment on above: Performed By: #### P REGQNT #### [facility] [address] [place], [place] [address] Mikal Dempsey WBC (Bld) [#/Vol] 8.6 103/ul Normal 4.0-11.0 [facility] Comment on above: Performed By: #### P REGQNT #### [facility] [address] [place], [place] [address] Mikal Dempsey CULTURE URINEon 02-18-2020 CULTURE URINE Culture Observations : NORMAL GENITAL SIERRA. NO POTENTIAL PATHOGENS SEEN. Normal [facility] Comment on above: Performed By: #### P REGQNT #### [facility] [address] [place] [address] Mikal Roselyn LDHon 02-18-2020 LDH 142 U/L Normal 122-222 [facility] Comment on above: Performed By: #### P REGQNT #### [facility] [address] [place], [place] [address] Mikal Dempsey PROF 14(COMP METB)on 020 Albumin [Mass/Vol] 2.5 g/dL Critically low 3.5-5.0 [facility] Comment on above: Performed By: #### P REGQNT #### [facility] [address] [place], [place] [address] Mikal Roselyn Albumin/Globulin [Mass ratio] 0.7 {ratio} Normal [facility] Comment on above: Performed By: #### P REGQNT #### [facility] [address] [place], [place] [address] Mikal Roselyn ALP [Catalytic activity/Vol] 107 U/L Normal 38-126 [facility] Comment on above: Performed By: #### P REGQNT #### [facility] [address] [place], [place] [address] Mikal Roselyn ALT [Catalytic activity/Vol] 16 U/L Normal 9-52 [facility] Comment on above: Performed By: #### P REGQNT #### [facility] [address] [place] [id number] Mikal Roselyn Anion gap [Moles/Vol] 12.1 mmol/L Normal [facility] Comment on above: Performed By: #### P REGQNT #### [facility] [address] [address] Mikal Roselyn AST [Catalytic activity/Vol] 10 U/L Critically low 14-36 [facility] Comment on above: Performed By: #### P REGQNT #### [facility] [address] [address] Mikal Roselyn Bilirubin Ql (U) 0.3 mg/dL Normal 0.2-1.3 [facility] Comment on above: Performed By: #### P REGQNT #### [facility] [address] [address] Mikal Roselyn Calcium [Mass/Vol] 8.6 mg/dL Normal 8.4-10.2 [facility] Comment on above: Performed By: #### P REGQNT #### [facility] [address] [place] [address] Mikal Roselyn Chloride [Moles/Vol] 103 mmol/L Normal 98-107 [facility] Comment on above: Performed By: #### P REGQNT #### [facility] [address] [address] Mikal Roselyn CO2 [Moles/Vol] 24.1 mmol/L Normal 22.0-30.0 [facility] Comment on above: Performed By: #### P REGQNT #### [facility] [address] [address] Mikal Roselyn Creatinine [Mass/Vol] 0.52 mg/dL Normal 0.52-1.04 [facility] Comment on above: Performed By: #### P REGQNT #### [facility] [address] [address] Mikal Roselyn EGFR-AF PAPUA [place] GUINEAN >60 Normal >=60 [facility] Comment on above: Performed By: #### P REGQNT #### [facility] [address] [address] Mikal Roselyn EGFR-NON AF PAP[place] >60 Normal >=60 [facility] Comment on above: Performed By: #### P REGQNT #### [facility] [address] [address] Mikal Roselyn Globulin (S) [Mass/Vol] 3.7 g/dL Normal [facility] Comment on above: Performed By: #### P REGQNT #### [facility] [address] [address] Mikal Roselyn Glucose [Mass/Vol] 75 mg/dL Normal 74-106 [facility] Comment on above: Performed By: #### P REGQNT #### [facility] [address] [address] Mikal Roselyn Potassium [Moles/Vol] 4.2 mmol/L Normal 3.4-5.0 [facility] Comment on above: Performed By: #### P REGQNT #### [facility] [address] [place] [address] Mikal Roselyn Protein [Mass/Vol] 6.2 g/dL Normal 6.1-8.2 [facility] Comment on above: Performed By: #### P REGQNT #### [facility] [address] [place] [address] Mikal Roselyn Sodium [Moles/Vol] 135 mmol/L Critically low 137-145 [facility] Comment on above: Performed By: #### P REGQNT #### [facility] [address] [place] [address] Mikal Roselyn Urea nitrogen [Mass/Vol] 3.0 mg/dL Critically low 7.0-17.0 [facility] Comment on above: Performed By: #### P REGQNT #### [facility] [address] [place] [address] Mikal Roselyn Urea nitrogen/Creatinine [Mass ratio] 5.8 mg/mg Normal [facility] Comment on above: Performed By: #### P REGQNT #### [facility] [address] [place] [address] Mikal Roselyn UA (CLEAN/CATCH) SEWING TRIMMER/MICRO I F IND.on 02-18-2020 Bilirubin [Mass/Vol] Negative Normal NEGATIVE [facility] Comment on above: Performed By: #### P REGQNT #### [facility] [address] [place] [address] Mikal Roselyn BLOOD Negative Normal NEGATIVE [facility] Comment on above: Performed By: #### P REGQNT #### [facility] [address] [place] [address] Mikal Roselyn Clarity (U) SL CLOUDY Normal [facility] Comment on above: Performed By: #### P REGQNT #### [facility] [address] [place] [address] Mikal Roselyn Color (U) LT. YELLOW Normal YELLOW [facility] Comment on above: Performed By: #### P REGQNT #### [facility] [address] [place] [address] Mikal Roselyn Glucose [Mass/Vol] Negative Normal NEGATIVE [facility] Comment on above: Performed By: #### P REGQNT #### [facility] [address] [place] [address] Mikal Roselyn Ketones Ql (U) Negative Normal NEGATIVE [facility] Comment on above: Performed By: #### P REGQNT #### [facility] [address] [place] [address] Mikal Roselyn Nitrite Ql (U) Negative Normal NEGATIVE [facility] Comment on above: Performed By: #### P REGQNT #### [facility] [address] [place] [address] Mikal Roselyn pH (Bld) 6.5 Normal 5-9 [facility] Comment on above: Performed By: #### P REGQNT #### [facility] [address] [place] [address] Mikalrena Dempsey Protein [Mass/Vol] Negative Normal [facility] Comment on above: Performed By: #### P REGQNT #### [facility] [address] [place], [place] [address] Mikal Dempsey SPEC GRAVITY 1.025 Normal 1.005-<=1.025 [facility] Comment on above: Performed By: #### P REGQNT #### [facility] [address] [address] Mikal Dempsey UR MICRO IND INDICATED Normal [facility] Comment on above: Performed By: #### P REGQNT #### [facility] [address] [place], [place] [address] Mikal Dempsey Urobilinogen Qn (U) 1.0 EU/dl Normal [facility] Comment on above: Performed By: #### P REGQNT #### [facility] [address] [place] [address] Mikal Dempsey WBC (Bld) [#/Vol] SMALL Normal NEGATIVE [facility] Comment on above: Performed By: #### P REGQNT #### [facility] [address] [place], [place] [address] Mikal Dempsey URIC ACID SERUMon 02-18-2020 Urate [Mass/Vol] 3.1 mg/dL Normal 2.5-6.2 [facility] Comment on above: Performed By: #### P REGQNT #### [facility] [address] [address] Mikal Dempsey URINE MICROSCOPIC ONLYon Bacteria LM.HPF (Urine sed) [#/Area] SMALL Normal NONE SEEN [facility] Comment on above: Performed By: #### P REGQNT #### [facility] [address] [place] [address] Mikalrena Dempsey CAST NONE SEEN Normal NONE SEEN [facility] Comment on above: Performed By: #### P REGQNT #### [facility] [address] [place], [place] [address] Mikal Roselyn Crystals LM Nom (Urine sed) NONE SEEN Normal NONE SEEN [facility] Comment on above: Performed By: #### P REGQNT #### [facility] [address] [id number] Mikal Roselyn CULTURE INDICATED Normal [facility] Comment on above: Performed By: #### P REGQNT #### [facility] [address] [id number] Mikal Roselyn Epithelial cells LM.HPF (Urine sed) [#/Area] FEW Normal [facility] Comment on above: Performed By: #### P REGQNT #### [facility] [address] [id number] Mikal Roselyn MUCOUS SMALL Normal NONE SEEN [facility] Comment on above: Performed By: #### P REGQNT #### [facility] [address] [place], [place] [address] Mikal Roselyn RBC (U) [#/Vol] 0-2 Normal 0-2 [facility] Comment on above: Performed By: #### P REGQNT #### [facility] [address] [place] [address] Mikal Roselyn WBC (Bld) [#/Vol] 5-10 Normal NONE SEEN [facility] Comment on above: Performed By: #### P REGQNT #### [facility] [address] [place], [place] [address] Mikal Roselyn CBC AUTO DIFFon 01-03-2020 Basophils (Bld) [#/Vol] 0.0 103/ul Normal 0.0-0.1 [facility] Comment on above: Performed By: #### C BC #### [facility] [address] [place] [address] Mikal Roselyn Basophils/100 WBC (Bld) 0.4 % Normal 0.2-2.0 [facility] Comment on above: Performed By: #### C BC #### [facility] [address] [place], [place] [address] Mikal Roselyn Eosinophils (Bld) [#/Vol] 0.1 103/ul Normal 0.0-0.7 [facility] Comment on above: Performed By: #### C BC #### [facility] [address] [place], [place] [address] Mikal Roselyn Eosinophils/100 WBC (Bld) 0.7 % Critically low 0.9-7.0 [facility] Comment on above: Performed By: #### C BC #### [facility] [address] [id number] Mikal Roselyn Erythrocyte distribution width (RBC) [Ratio] 13.7 % Normal 11.0-15.0 [facility] Comment on above: Performed By: #### C BC #### [facility] [address] [id number] Mikal Roselyn Hematocrit (Bld) [Volume fraction] 37.8 % Normal 36.0-48.0 [facility] Comment on above: Performed By: #### C BC #### [facility] [address] [place], [place] [address] Mikal Roselyn Hemoglobin (Bld) [Mass/Vol] 12.8 g/dL Normal 12.0-16.0 [facility] Comment on above: Performed By: #### C BC #### [facility] [address] [place], [place] [address] Mikal Roselyn IG # 0.09 10e3/ul Critically high 0.00-0.03 [facility] Comment on above: Performed By: #### C BC #### [facility] [address] [place], [place] [address] Mikal Roselyn IG % 1.2 % Critically high 0.0-0.5 [facility] Comment on above: Performed By: #### C BC #### [facility] [address] [place], [place] [address] Mikal Roselyn Lymphocytes (Bld) [#/Vol] 1.6 103/ul Normal 1.2-3.8 [facility] Comment on above: Performed By: #### C BC #### [facility] [address] [place], [place] [address] Mikal Roselyn Lymphocytes/100 WBC (Bld) 20.6 % Normal 20.5-60.0 [facility] Comment on above: Performed By: #### C BC #### [facility] [address] [place], [place] [address] Mikal Roselyn MANUAL DIFF REQ NO Normal [facility] Comment on above: Performed By: #### C BC #### [facility] [address] [place], [place] [address] Mikal Roselyn MCH (RBC) [Entitic mass] 31.4 pg Normal 26.7-34.0 [facility] Comment on above: Performed By: #### C BC #### [facility] [address] [place], [place] [address] Mikal Roselyn MCHC (RBC) [Mass/Vol] 33.9 g/dL Normal 29.9-35.2 [facility] Comment on above: Performed By: #### C BC #### [facility] [address] [place], [place] [address] Mikal Roselyn MCV (RBC) [Entitic vol] 92.6 fL Normal 81.0-99.0 [facility] Comment on above: Performed By: #### C BC #### [facility] [address] [place], [place] [address] Mikal Roselyn Monocytes (Bld) [#/Vol] 0.9 103/ul Critically high 0.3-0.8 [facility] Comment on above: Performed By: #### C BC #### [facility] [address] [place], [place] [address] Mikal Roselyn Monocytes/100 WBC (Bld) 12.0 % Normal 1.7-12.0 [facility] Comment on above: Performed By: #### C BC #### [facility] [address] [place], [place] [address] Mikal Roselyn Neutrophils (Bld) [#/Vol] 4.9 103/ul Normal 1.4-6.5 [facility] Comment on above: Performed By: #### C BC #### [facility] [address] [place], [place] [address] Mikal Roselyn Neutrophils/100 WBC (Bld) 65.1 % Normal 43.0-75.0 [facility] Comment on above: Performed By: #### C BC #### [facility] [address] [place], [place] [address] Mikalrena Dempsey Platelet mean volume (Bld) [Entitic vol] 8.9 fL Critically low 9.5-13.5 [facility] Comment on above: Performed By: #### C BC #### [facility] [address] [place], [place] [address] Mikal Dempsey Platelets (Bld) [#/Vol] 205 103/ul Normal 150-450 [facility] Comment on above: Performed By: #### C BC #### [facility] [address] [place], [place] [address] Mikalrena Dempsey RBC (Bld) [#/Vol] 4.08 106/ul Critically low 4.20-5.40 [facility] Comment on above: Performed By: #### C BC #### [facility] [address] [place], [place] [address] Mikalrena Hensleyen WBC (Bld) [#/Vol] 7.6 103/ul Normal 4.0-11.0 [facility] Comment on above: Performed By: #### C BC #### [facility] [address] [place], [place] [address] Mikal Dempsey GLUCOSE - 1HRon 01-03-2020 Glucose [Mass/Vol] 87 mg/dL Normal 74-106 [facility] Comment on above: Performed By: #### C BC #### [facility] [address] [place], [place] [address] Mikalrena Dempsey US PREG ANATOMY SINGLEon US [...] 10-07-2019 Age Gdln ACOG Testing 23- Normal [facility] Comment on above: Performed By: #### C BC #### [facility] [address] [place] [address] Mikal Dempsey Chlamydia, Nuc. Acid Amp Negative Normal Negative [facility] Comment on above: Result Comment: Perf ormed at: =G Performed By: #### C BC #### [facility] [address] [place] [address] Mikal Dempsey DIAGNOSIS: Comment Abnormal [facility] Comment on above: Result Comment: EPIT HELIAL CELL ABNORMALITY. ATYPICAL SQUAMOUS CELLS OF UNDETERMINED SIGNIFICANCE (ASC-US). Performed at: WB Performed By: #### C BC #### [facility] [address] [place] [address] Mikal Dempsey Electronically signed by: Comment Normal [facility] Comment on above: Result Comment: Aretha Cheng MD, Pathologist Performed at: WB Performed By: #### C BC #### [facility] [address] [place] [address] Mikal Dempsey Gonococcus, Nuc. Acid Amp Negative Normal Negative [facility] Comment on above: Result Comment: Perf ormed at: =G Performed By: #### C BC #### [facility] [address] [address] Mikal Dempsey HPV Aptima Positive Abnormal Negative [facility] Comment on above: Result Comment: This nucleic acid amplification test detects fourteen high-risk HPV types (16,18,31,33,35,39,45,51,52,56,58,59,66,68) without differentiation. Performed By: #### C BC #### [facility] [address] [address] Mikal Dempsey Methodology: Comment Normal [facility] Comment on above: Result Comment: This liquid based ThinPrep(R) pap test was screened with the use of an image guided system. Performed at: WB Performed By: #### C BC #### [facility] [address] [place] [address] Mikal Dempsey Note: Comment [facility] [...] WB Performed By: #### C BC #### [facility] [address] [place] [address] Mikal Rosleyn Pathologist Provided ICD10 Comment Normal [facility] Comment on above: Result Comment: [id number]. [id number] Performed at: WB Performed By: #### C BC #### [facility] [address] [place] [address] Mikal Dempsey Performed by: Comment Normal [facility] Comment on above: Result Comment: Perry Dial, Manager Deli (ASCP) Performed at: WB Performed By: #### C BC #### [facility] [address] [place] [address] Mikal Dempsey Recommendation: Comment Abnormal [facility] Comment on above: Result Comment: Sugg est follow up as clinically appropriate. Performed at: WB Performed By: #### C BC #### [facility] [address] [place] [address] Mikal Dempsey Reflex Criteria: Comment Normal [facility] Comment on above: Result Comment: See below for HPV testing results. . Performed at: WB Performed By: #### C BC #### [facility] [address] [address] Mikal Dempsey Specimen adequacy: Comment Normal [facility] Comment on above: Result Comment: Sati sfactory for evaluation. No endocervical component is identified. An endocervical component is not commonly seen in the patient. Performed at: WB Performed By: #### C BC #### [facility] [address] [address] Mikal Dempsey . . Normal [facility] Comment on above: Result Comment: Perf ormed at: WB Performed By: #### C BC #### [facility] [address] [place] [address] Mikal Dempsey US PREG TVon 09-15-2019 US [...] IMPRESSION: Single live intrauterine . Normal [facility] BUNon 09-05-2019 Urea nitrogen [Mass/Vol] 8.0 mg/dL Normal 7.0-17.0 [facility] Comment on above: Performed By: #### D RUGRPD, UAMIC #### [facility] [address] [place] [address] Mikal Roselyn CBC AUTO DIFFon 09-05-2019 Basophils (Bld) [#/Vol] 0.0 103/ul Normal 0.0-0.1 [facility] Comment on above: Performed By: #### D CHRISTOPHER UAMIC #### [facility] [address] [place] [address] Mikal Roselyn Basophils/100 WBC (Bld) 0.5 % Normal 0.2-2.0 [facility] Comment on above: Performed By: #### Agustin WHITE UAMIC #### [facility] [address] [place] [address] Mikal Roselyn Eosinophils (Bld) [#/Vol] 0.0 103/ul Normal 0.0-0.7 [facility] Comment on above: Performed By: #### MARLEN HIGGINSMIC #### [facility] [address] [place] [address] Mikal Roselyn Eosinophils/100 WBC (Bld) 0.2 % Critically low 0.9-7.0 [facility] Comment on above: Performed By: #### Agustin WHITE UAMIC #### [facility] [address] [place] [address] Mikalrena Hensleyen Erythrocyte distribution width (RBC) [Ratio] 12.8 % Normal 11.0-15.0 [facility] Comment on above: Performed By: #### MARLEN HIGGINSMIC #### [facility] [address] [place] [address] Mikal Roselyn Hematocrit (Bld) [Volume fraction] 40.0 % Normal 36.0-48.0 [facility] Comment on above: Performed By: #### MARLEN HIGGINSMIC #### [facility] [address] [place] [address] Mikal Roselyn Hemoglobin (Bld) [Mass/Vol] 13.7 g/dL Normal 12.0-16.0 [facility] Comment on above: Performed By: #### MARLEN HIGGINSMIC #### [facility] [address] [place] [address] Mikal Roselyn IG # 0.01 10e3/ul Normal 0.00-0.03 [facility] Comment on above: Performed By: #### Agustin WHITE UAMIC #### [facility] [address] [place], [place] [address] Mikal Roselyn IG % 0.2 % Normal 0.0-0.5 [facility] Comment on above: Performed By: #### D CHRISTOPHER UAMIC #### [facility] [address] [place], [place] [address] Mikal Roselyn Lymphocytes (Bld) [#/Vol] 1.5 103/ul Normal 1.2-3.8 [facility] Comment on above: Performed By: #### D CHRISTOPHER UAMIC #### [facility] [address] [place], [place] [address] Mikal Roselyn Lymphocytes/100 WBC (Bld) 24.3 % Normal 20.5-60.0 [facility] Comment on above: Performed By: #### D CHRISTOPHER UAMIC #### [facility] [address] [place] [address] Mikal Roselyn MANUAL DIFF REQ NO Normal [facility] Comment on above: Performed By: #### D CHRISTOPHER UAMIC #### [facility] [address] [place], [place] [address] Mikal Roselyn MCH (RBC) [Entitic mass] 29.8 pg Normal 26.7-34.0 [facility] Comment on above: Performed By: #### D CHRISTOPHER UAMIC #### [facility] [address] [place] [address] Mikal Roselyn MCHC (RBC) [Mass/Vol] 34.3 g/dL Normal 29.9-35.2 [facility] Comment on above: Performed By: #### D CHRISTOPHER UAMIC #### [facility] [address] [place], [place] [address] Mikal Roselyn MCV (RBC) [Entitic vol] 87.1 fL Normal 81.0-99.0 [facility] Comment on above: Performed By: #### D CHRISTOPHER UAMIC #### [facility] [address] [place], [place] [address] Mikal Roselyn Monocytes (Bld) [#/Vol] 0.7 103/ul Normal 0.3-0.8 [facility] Comment on above: Performed By: #### D CHRISTOPHER UAMIC #### [facility] [address] [place], [place] [address] Mikal Roselyn Monocytes/100 WBC (Bld) 11.2 % Normal 1.7-12.0 [facility] Comment on above: Performed By: #### Agustin WHITE UAMIC #### [facility] [address] [place], [place] [address] Mikal Roselyn Neutrophils (Bld) [#/Vol] 4.0 103/ul Normal 1.4-6.5 [facility] Comment on above: Performed By: #### Agustin WHITE UAMIC #### [facility] [address] [place], [place] [address] Mikal Roselyn Neutrophils/100 WBC (Bld) 63.6 % Normal 43.0-75.0 [facility] Comment on above: Performed By: #### Agustin WHITE UAMIC #### [facility] [address] [place], [place] [address] Mikal Roselyn Platelet mean volume (Bld) [Entitic vol] 8.9 fL Critically low 9.5-13.5 [facility] Comment on above: Performed By: #### Agustin WHITE UAMIC #### [facility] [address] [place] [address] Mikal Roselyn Platelets (Bld) [#/Vol] 260 103/ul Normal 150-450 [facility] Comment on above: Performed By: #### Agustin WHITE UAMIC #### [facility] [address] [place] [address] Mikal Roselyn RBC (Bld) [#/Vol] 4.59 106/ul Normal 4.20-5.40 [facility] Comment on above: Performed By: #### Agustin WHITE, UAMIC #### [facility] [address] [place] [address] Mikal Roselyn WBC (Bld) [#/Vol] 6.3 103/ul Normal 4.0-11.0 [facility] Comment on above: Performed By: #### D CHRISTOPHER UAMIC #### [facility] [address] [id number] Mikalrena Dempsey CREATININEon 09-05-2019 Creatinine [Mass/Vol] mg/dL Normal >=60 [facility] Comment on above: Performed By: #### D CHRISTOPHER UAMIC #### [facility] [address] [place] [address] Mikal Roselyn Creatinine [Mass/Vol] 0.65 mg/dL Normal 0.52-1.04 [facility] Comment on above: Performed By: #### D CHRISTOPHER UAMIC #### [facility] [address] [place] [address] Mikalrena Dempsey CREATININE CLEARon 0 CREA CLEARANCE 136.03 ml/min Critically high 75.00-115.00 [facility] Comment on above: Performed By: #### Agustin WHITE UAMIC #### [facility] [address] [place] [address] Mikal Dempsey CREA, 24 HR UR 1287.99 mg/24 hr Normal 800.00-1, 800. 00 [facility] Comment on above: Performed By: #### Agustin WHITE UAMIC #### [facility] [address] [place] [address] Mikal Roselyn UR TOT VOL 900 ml/24 HR Normal [facility] Comment on above: Performed By: #### Agustin WHITE UAMIC #### [facility] [address] [place] [address] Mikalrena Dempsey URINE CREAT 143.11 mg/dL Normal 20.00-300.00 [facility] Comment on above: Performed By: #### Agustin WHITE UAMIC #### [facility] [address] [place], [place] [address] Mikal Dempsey GLUCOSE - 1HRon 09-05-2019 Glucose [Mass/Vol] 94 mg/dL Normal 74-106 [facility] Comment on above: Performed By: #### C BC #### [facility] [address] [place] [address] Mikalrena Dempsey LDHon 09-05-2019 LDH 137 U/L Normal 122-222 [facility] Comment on above: Performed By: #### C BC #### [facility] [address] [place], [place] [address] Mikal Dempsey PROTEIN 24HR URINEon 020 T PROT, 24 HR UR 127.8 mg/24 hr Normal 42.0-225.0 [facility] Comment on above: Performed By: #### D CHRISTOPHER UAMIC #### [facility] [address] [place], [place] [address] Mikalrena Dempsey UR PROT 14.2 mg/dL Critically high <=12.0 [facility] Comment on above: Performed By: #### D CHRISTOPHER UAMIC #### [facility] [address] [place] [address] Mikal Roselyn SGOTon 09-05-2019 AST [Catalytic activity/Vol] 14 U/L Normal 14-36 [facility] Comment on above: Performed By: #### D CHRISTOPHER UAMIC #### [facility] [address] [place], [place] [address] Mikalrena Hensleyen SGPTon 09-05-2019 ALT [Catalytic activity/Vol] 26 U/L Normal 9-52 [facility] Comment on above: Performed By: #### C BC #### [facility] [address] [place] [address] Mikalrena Dempsey TSHon 09-05-2019 TSH Qn 0.807 uIU/mL Normal 0.470-4.[address] [facility] Comment on above: Performed By: #### C BC #### [facility] [address] [place] [address] Mikal Roselyn TSH Qn SEE BELOW Normal [facility] Comment on above: Result Comment: <0.3 4 UIU/ml HYPERTHYROID 0.34-5.60 UIU/ml EUTHYROID >5.60 UIU/ml HYPOTHYROID Performed By: #### C BC #### [facility] [address] [place], [place] [address] Mikal Roselyn URIC ACID SERUMon 09-05-2019 Urate [Mass/Vol] 3.5 mg/dL Normal 2.5-6.2 [facility] Comment on above: Performed By: #### C BC #### [facility] [address] [place] [address] Mikal Dempsey HEP B SURFACE ANTIGEN SCREEN on 09-01-2019 HBsAg Screen Negative Normal Negative [facility] Comment on above: Performed By: #### H BSANS #### [facility] [address] [place] [address] Mikal Dempsey HEPATITIIS C VIRUS ANTIBODYo n 09-01-2019 Hep C Virus Ab <0.1 Normal 0.0-0.9 [facility] Comment on above: Result Comment: Nega tive: < 0.8 Indeterminate: 0.8 - 0.9 Positive: > 0.9 . The CDC recommends that a positive HCV antibody result be followed up with a HCV Nucleic Acid Amplification test (704144). Performed By: #### Greg CV #### [facility] [address] [place] [address] Mikal Dempsey HGB(ELECTP) FRACTION PROFILE on 09-01-2019 Hemoglobin (Bld) [Mass/Vol] 97.5 % Normal 96.4-98.8 [facility] Comment on above: Performed By: #### D CHRISTOPHER UAMIC #### [facility] [address] [place] [address] Mikal Dempsey Hgb A2 2.5 % Normal 1.8-3.2 [facility] Comment on above: Performed By: #### D CHRISTOPHER UAMIC #### [facility] [address] [place] [address] Mikal Roselyn Hgb C 0.0 % Normal 0.0 [facility] Comment on above: Performed By: #### D MARLEN WHITEMIC #### [facility] [address] [place] [address] Mikal Roselyn Hgb F 0.0 % Normal 0.0-2.0 [facility] Comment on above: Performed By: #### D MARLEN WHITEMIC #### [facility] [address] [place] [address] Mikal Dempsey Hgb S 0.0 % Normal 0.0 [facility] Comment on above: Performed By: #### D CHRISTOPHER UAMIC #### [facility] [address] [place] [address] Mikal Dempsey Hgb Solubility Negative Normal Negative [facility] Comment on above: Performed By: #### D CHRISTOPHER UAMIC #### [facility] [address] [place] [address] Mikal Depmsey Hgb Variant Normal [facility] Comment on above: Performed By: #### D CHRISTOPHER UAMIC #### [facility] [address] [place] [address] Mikal Dempsey Interpretation Comment Normal [facility] Comment on above: Result Comment: Norm al adult hemoglobin present. Performed By: #### D MARLEN WHITEMIC #### [facility] [address] [place] [address] Mikal Dempsey HIV 1 AND 2 WITH REFLEXon HIV Screen 4th Generation wRfx Non Reactive Normal Non Reactive [facility] Comment on above: Performed By: #### H IV12 #### [facility] [address] [place] [address] Mikal Dempsey RPR QUANTon 09-01-2019 Rapid Plasma Reagin, Quant Non Reactive Normal NonRea<1:1 [facility] Comment on above: Performed By: #### D CHRISTOPHER UAMIC #### [facility] [address] [place] [address] Mikal Dempsey RUBELLA AB IGGon 09-01-2019 Rubella Antibodies, IgG 1.49 index Normal Immune >0.99 [facility] Comment on above: Result Comment: Non- immune <0.90 Equivocal 0.90 - 0.99 Immune >0.99 Performed By: #### D MARLEN WHITEMIC #### [facility] [address] [place] [address] Mikal Dempsey VARICELLA IGG ABon 0 Varicella [...] Performed By: #### D RUGRPD, UAMIC #### [facility] [address] [place], [place] [address] Mikal Roselyn TYPE AND SCREENon 08-31-2019 TYPE AND SCREEN Negative Normal [facility] Comment on above: Performed By: #### T NS #### [facility] [address] [place], [place] [address] Mikal Roselyn CBC AUTO DIFFon 08-30-2019 Basophils (Bld) [#/Vol] 0.1 103/ul Normal 0.0-0.1 [facility] Comment on above: Performed By: #### C BC #### [facility] [address] [place] [address] Mikal Roselyn Basophils/100 WBC (Bld) 0.7 % Normal 0.2-2.0 [facility] Comment on above: Performed By: #### C BC #### [facility] [address] [place] [address] Mikal Roselyn Eosinophils (Bld) [#/Vol] 0.0 103/ul Normal 0.0-0.7 [facility] Comment on above: Performed By: #### C BC #### [facility] [address] [place], [place] [address] Mikal Roselyn Eosinophils/100 WBC (Bld) 0.3 % Critically low 0.9-7.0 [facility] Comment on above: Performed By: #### C BC #### [facility] [address] [place], [place] [address] Mikal Roselyn Erythrocyte distribution width (RBC) [Ratio] 13.2 % Normal 11.0-15.0 [facility] Comment on above: Performed By: #### C BC #### [facility] [address] [place], [place] [address] Mikal Roselyn Hematocrit (Bld) [Volume fraction] 43.0 % Normal 36.0-48.0 [facility] Comment on above: Performed By: #### C BC #### [facility] [address] [id number] Mikal Roselyn Hemoglobin (Bld) [Mass/Vol] 14.1 g/dL Normal 12.0-16.0 [facility] Comment on above: Performed By: #### C BC #### [facility] [address] [id number] Mikal Roselyn IG # 0.02 10e3/ul Normal 0.00-0.03 [facility] Comment on above: Performed By: #### C BC #### [facility] [address] [place] [address] Mikal Roselyn IG % 0.3 % Normal 0.0-0.5 [facility] Comment on above: Performed By: #### C BC #### [facility] [address] [place] [address] Mikal Roselyn Lymphocytes (Bld) [#/Vol] 1.7 103/ul Normal 1.2-3.8 [facility] Comment on above: Performed By: #### C BC #### [facility] [address] [place], [place] [address] Mikal Roselyn Lymphocytes/100 WBC (Bld) 23.4 % Normal 20.5-60.0 [facility] Comment on above: Performed By: #### C BC #### [facility] [address] [place], [place] [address] Mikal Roselyn MANUAL DIFF REQ NO Normal [facility] Comment on above: Performed By: #### C BC #### [facility] [address] [place], [place] [address] Mikal Roselyn MCH (RBC) [Entitic mass] 29.3 pg Normal 26.7-34.0 [facility] Comment on above: Performed By: #### C BC #### [facility] [address] [place], [place] [address] Mikal Roselyn MCHC (RBC) [Mass/Vol] 32.8 g/dL Normal 29.9-35.2 [facility] Comment on above: Performed By: #### C BC #### [facility] [address] [place], [place] [address] Mikal Roselyn MCV (RBC) [Entitic vol] 89.4 fL Normal 81.0-99.0 [facility] Comment on above: Performed By: #### C BC #### [facility] [address] [place], [place] [address] Mikal Roselyn Monocytes (Bld) [#/Vol] 0.6 103/ul Normal 0.3-0.8 [facility] Comment on above: Performed By: #### C BC #### [facility] [address] [place], [place] [address] Mikal Roselyn Monocytes/100 WBC (Bld) 8.6 % Normal 1.7-12.0 [facility] Comment on above: Performed By: #### C BC #### [facility] [address] [place] [address] Mikal Roselyn Neutrophils (Bld) [#/Vol] 4.9 103/ul Normal 1.4-6.5 [facility] Comment on above: Performed By: #### C BC #### [facility] [address] [place] [address] Mikal Roselyn Neutrophils/100 WBC (Bld) 66.7 % Normal 43.0-75.0 [facility] Comment on above: Performed By: #### C BC #### [facility] [address] [place] [address] Mikal Roselyn Platelet mean volume (Bld) [Entitic vol] 9.7 fL Normal 9.5-13.5 [facility] Comment on above: Performed By: #### C BC #### [facility] [address] [place] [address] Mikal Roselyn Platelets (Bld) [#/Vol] 304 103/ul Normal 150-450 [facility] Comment on above: Performed By: #### C BC #### [facility] [address] [place] [address] Mikal Roselyn RBC (Bld) [#/Vol] 4.81 106/ul Normal 4.20-5.40 [facility] Comment on above: Performed By: #### C BC #### [facility] [address] [place] [address] Mikal Dempsey WBC (Bld) [#/Vol] 7.4 103/ul Normal 4.0-11.0 [facility] Comment on above: Performed By: #### C BC #### [facility] [address] [place] [address] Mikal Dempsey CULTURE URINEon 08-30-2019 CULTURE URINE Culture Observations : Light growth of mixed genital sierra.No potential pathogens seen. Normal [facility] Comment on above: Performed By: #### U RCX #### [facility] [address] [place] [address] Mikalrena Dempsey DRUG SCREEN RAPID (URINE)on 08-30-2019 AMP Negative Normal NEGATIVE [facility] Comment on above: Performed By: #### D MARYBETHD, UAMIC #### [facility] [address] [place] [address] Mikal Roselyn BAR Negative Normal NEGATIVE [facility] Comment on above: Performed By: #### D RUGJOHND, UAMIC #### [facility] [address] [place] [address] Mikal Roselyn BUP Negative Normal NEGATIVE [facility] Comment on above: Performed By: #### D RUGRPD, UAMIC #### [facility] [address] [place] [address] Mikal Roselyn BZO Negative Normal NEGATIVE [facility] Comment on above: Performed By: #### D RUGJOHND, UAMIC #### [facility] [address] [place] [address] Mikal Roselyn MADDY Positive Normal NEGATIVE [facility] Comment on above: Performed By: #### D MARYBETHD, UAMIC #### [facility] [address] [place] [address] Mikal Roselyn CUT-OFFS SEE BELOW Normal [facility] Comment on above: Result Comment: AMP [...] Performed By: #### Agustin WHITE UAMIC #### [facility] [address] [place] [address] Mikal Roselyn DRUG CUT HEADER DRUG CLASS TEST SYST EM CUT-OFF CONCENTRATIONS ARE FOLLOWS: Normal [facility] Comment on above: Performed By: #### D CHRISTOPHER UAMIC #### [facility] [address] [place] [address] Mikal Roselyn mAMP Negative Normal NEGATIVE [facility] Comment on above: Performed By: #### Agustin WHITE UAMIC #### [facility] [address] [place] [address] Mikal Roselyn MTD Negative Normal NEGATIVE [facility] Comment on above: Performed By: #### Agustin WHITE UAMIC #### [facility] [address] [place] [address] Mikal Roselyn OPI Negative Normal NEGATIVE [facility] Comment on above: Performed By: #### D CHRISTOPHER UAMIC #### [facility] [address] [place] [address] Mikal Roselny OXY Negative Normal NEGATIVE [facility] Comment on above: Performed By: #### Agustin WHITE UAMIC #### [facility] [address] [place] [address] Mikal Roselyn PCP Negative Normal NEGATIVE [facility] Comment on above: Performed By: #### Agustin WHITE UAMIC #### [facility] [address] [place] [address] Mikal Roselyn PPX Negative Normal NEGATIVE [facility] Comment on above: Performed By: #### Agustin WHITE UAMIC #### [facility] [address] [address] Mikal Dempsey TCA Negative Normal NEGATIVE [facility] Comment on above: Performed By: #### D CHRISTOPHER UAMIC #### [facility] [address] [place] [address] Mikal Dempsey THC Negative Normal NEGATIVE [facility] Comment on above: Performed By: #### D CHRISTOPHER UAMIC #### [facility] [address] [place] [address] Mikal Hensleyen GLYCOHEMOGLOBIN A1Con 2019 Glucose [Mass/Vol] 85 mg/dL Normal [facility] Comment on above: Performed By: #### A 1C #### [facility] [address] [place] [address] Mikal Dempsey HbA1c (Bld) [Mass fraction] 4.6 % Normal <=6.0 [facility] Comment on above: Performed By: #### A 1C #### [facility] [address] [place] [address] Mikal Dempsey PREG QUANT HCGon 08-30-2019 HCG QUANT 35704.00 mIU/mL Normal [facility] Comment on above: Performed By: #### P REGQNT #### [facility] [address] [place] [address] Mikal Dempsey HCG RANGE SEE BELOW Normal [facility] Comment on above: Result Comment: 5-50 0-1 WEEK 40-300 1-2 WEEKS 100-1,000 2-3 WEEKS 500-6,000 3-4 WEEKS 5,000-200,000 1-2 MONTHS 10,000-100,000 2-3 MONTHS 3,000-50,000 2ND TRIMESTER 1,000-50,000 3RD TRIMESTER Performed By: #### P REGQNT #### [facility] [address] [place] [address] Mikal Dempsey UA RANDOM W/MICROSCOPICon Bacteria LM.HPF (Urine sed) [#/Area] SMALL Normal NONE SEEN [facility] Comment on above: Performed By: #### D CHRISTOPHER UAMIC #### [facility] [address] [place] [address] Mikal Roselyn Bilirubin [Mass/Vol] Negative Normal NEGATIVE [facility] Comment on above: Performed By: #### D CHRISTOPHER UAMIC #### [facility] [address] [place] [address] Mikal Roselyn BLOOD Negative Normal NEGATIVE [facility] Comment on above: Performed By: #### D CHRISTOPHER, UAMIC #### [facility] [address] [place] [address] Mikal Roselyn CAST NONE SEEN Normal NONE SEEN [facility] Comment on above: Performed By: #### D CHRISTOPHER UAMIC #### [facility] [address] [place] [address] Mikal Roselyn Clarity (U) CLEAR Normal [facility] Comment on above: Performed By: #### D CHRISTOPHER UAMIC #### [facility] [address] [place] [address] Mikal Roselyn Color (U) YELLOW Normal YELLOW [facility] Comment on above: Performed By: #### D CHRISTOPHER UAMIC #### [facility] [address] [place] [address] Mikal Roselyn Crystals LM Nom (Urine sed) NONE SEEN Normal NONE SEEN [facility] Comment on above: Performed By: #### D CHRISTOPEHR UAMIC #### [facility] [address] [place] [address] Mikal Roselyn Epithelial cells LM.HPF (Urine sed) [#/Area] FEW Normal [facility] Comment on above: Performed By: #### D CHRISTOPHER UAMIC #### [facility] [address] [place] [address] Mikal Roselyn Glucose [Mass/Vol] Negative Normal NEGATIVE [facility] Comment on above: Performed By: #### D CHRISTOPHER UAMIC #### [facility] [address] [place] [address] Mikal Roselyn Ketones Ql (U) Negative Normal NEGATIVE [facility] Comment on above: Performed By: #### D CHRISTOPHER UAMIC #### [facility] [address] [place] [address] Mikal Roselyn MUCOUS MODERATE Normal NONE SEEN [facility] Comment on above: Performed By: #### D CHRISTOPHER, UAMIC #### [facility] [address] [place], [place] [address] Mikal Roselyn Nitrite Ql (U) Negative Normal NEGATIVE [facility] Comment on above: Performed By: #### D MARYBETHD, UAMIC #### [facility] [address] [id number] Mikal Roselyn pH (Bld) 6.0 Normal 5-9 [facility] Comment on above: Performed By: #### D CHRISTOPHER, UAMIC #### [facility] [address] [place], [place] [address] Mikal Roselyn Protein [Mass/Vol] Negative Normal [facility] Comment on above: Performed By: #### D CHRISTOPHER, UAMIC #### [facility] [address] [place], [place] [address] Mikal Roselyn RBC (Bld) [#/Vol] 0-2 Normal 0-2 [facility] Comment on above: Performed By: #### D CHRISTOPHER, UAMIC #### [facility] [address] [place], [place] [address] Mikal Roselyn SPEC GRAVITY 1.025 Normal 1.005-<=1.025 [facility] Comment on above: Performed By: #### D CHRISTOPHER, UAMIC #### [facility] [address] [place], [place] [address] Mikal Roselyn Urobilinogen Qn (U) 0.2 EU/dl Normal [facility] Comment on above: Performed By: #### D CHRISTOPHER, UAMIC #### [facility] [address] [place], [place] [address] Mikal Roselyn WBC (Bld) [#/Vol] Negative Normal NEGATIVE [facility] Comment on above: Performed By: #### D CHRISTOPHER, UAMIC #### [facility] [address] [place], [place] [address] Mikal Roselyn WBC (Bld) [#/Vol] 2-5 Normal NONE SEEN [facility] Comment on above: Performed By: #### D CHRISTOPHER, UAMIC #### [facility] [address] [address] Mikal Dempsey Vital Signs Date Time Vital Sign Value Performing Clinician Ariana gama 08-17-2023 10:08-0500 Body mass index (BMI) [Ratio] 29.5 kg/m2 Lizbeth KEARNS Work Phone: [facility] 08-17-2023 10:08-0500 Body weight 70.82 kg Lizbeth KEARNS Work Phone: [facility] 08-17-2023 10:08-0500 Diastolic blood pressure 72 mm[Hg] Lizbeth KEARNS Work Phone: [facility] 08-17-2023 10:08-0500 Systolic blood pressure 116 mm[Hg] Lizbeth KEARNS Work Phone: [facility] Encounters Encounter Date Encounter Type Care Provider Facility Start: 10-12-2023 End: 10-12-2023 ambulatory ALEXANDER YAEL Not Available Start: 10-05-2023 End: 10-05-2023 ambulatory LIZBETH DELONTE Not Available Start: 09-17-2023 End: 09-17-2023 ambulatory ALEXANDER YAEL Not Available Start: 09-03-2023 End: 09-03-2023 ambulatory ALEXANDER YAEL Not Available Start: 08-17-2023 End: 08-17-2023 ambulatory LIZBETH DELONTE Not Available Start: 08-17-2023 End: 08-17-2023 Office outpatient visit 15 minutes Lizbeth KEARNS Work Phone: [facility] Comment on above: Third trimester preg herlinda Start: 08-03-2023 End: 08-03-2023 ambulatory ALEXANDER YAEL Not Available Start: 07-09-2023 End: 07-09-2023 Emergency department patient visit Baldo Fair Facility:[facility] Start: 07-02-2023 End: 07-02-2023 ambulatory ALEXANDER YAEL Not Available Start: 06-23-2023 End: 06-23-2023 Emergency department patient visit Caden Duran Blunt Facility:[facility] Start: 05-28-2023 End: 05-28-2023 ambulatory LIZBETH MARTEL Not Available Start: 03-21-2023 End: 03-21-2023 Emergency department patient visit Caden Lauren Facility:[facility] Start: 04-17-2020 Patient encounter procedure SHAHNAZ CORONA Facility:[facility] Start: 04-10-2020 End: 04-13-2020 Evaluation and management of inpatient ALEXANDER LAWRENCE Facility:[facility] Start: 04-05-2020 End: 04-06-2020 Patient [...] stick/tabl et rgnt non-auto w/o micrscp Lizbeth Martel PA Work Phone: Start: 04-12-2020 Insertion of Contrac eptive Device into Left Upper Arm Subcutaneous Tissue and Fascia, Percutaneous Approach SHAHNAZ CHLOE Start: 04-11-2020 Delivery of Products of Conception, External Approach SHAHNAZ CHLOE Start: 04-11-2020 Drainage of Amniotic Fluid, Therapeutic from Products of Conception, Via Natural or Artificial Opening SHAHNAZ CHLOE Start: 04-10-2020 Introduction of Horm one into Female Reproductive, Via Natural or Artificial Opening SHAHNAZ CORONA Plan of Treatment Date Care Activity Detail Author Start: 08-31-2023 End: 08-31-2023 Patient encounter procedure 08/31/2023 1:50 PM EST Routine [facility] [address] [place] [id number] Alexander Lawrence, [address] [place] [address] [facility] Payers Date Payer Category Payer Medicaid [id number] 2022 Medicaid [employer] [place] [employer] [id number] 2022-Present [address] [place] [address] [id number] 1997 Unknown [id number] 1997 Unknown [id number] 1997 Unknown [id number] 1997 Unknown [id number] 1997 Unknown [id number] 1997 Unknown [id number] 1997 Unknown [id number] 1997 Unknown [id number] [id number] 1997 Unknown [id number] 1997 Unknown [id number] 1997 Unknown [id number] 2.16.840.1.691194.3.579.2.593 1997 Unknown [id number] 2.16.840.1.489856.3.579.2.593 1997 Unknown [id number] 2.16.840.1.470733.3.579.2.593 1997 Unknown [id number] 2.16.840.1.250725.3.579.2.593 1997 Unknown [id number] 2.16.840.1.089058.3.579.2.593 1997 Unknown [id number] 2.16.840.1.649375.3.579.2.593 1997 Unknown [id number] 2.16.840.1.228218.3.579.2.593 1997 Unknown [id number] 2.16.840.1.428376.3.579.2.718 1997 Unknown [id number] 2.16.840.1.569934.3.579.2.718 1997 Unknown [id number] 2.16.840.1.721189.3.579.2.718 1997 Unknown [id number] 2.16.840.1.364468.3.579.2.1259 1997 Unknown [id number] 2.16.840.1.149917.3.579.2.1259 1997 Unknown [id number] 2.16.840.1.434265.3.579.2.9 1997 Unknown [id number] 2.16.840.1.453411.3.579.2.9 1997 Unknown [id number] 2.16.840.1.137035.3.579.2.9 1997 Unknown [id number] 2.16.840.1.941797.3.579.2.9 1997 Unknown [id number] 2.16.840.1.503703.3.579.2.9 1997 Unknown [id number] 2.16.840.1.013001.3.579.2.9 1959 Self-pay [id number] 1959 Unknown [id number] Social History Date Type Detail Facility Start: 04-17-2023 Tobacco smoking stat [facility] Never smoked tobacco [facility] Start: 08-17-2023 Alcohol intake Lifetime non-d jer (finding) [facility] Start: 04-17-2023 History of Social function [facility] Start: 04-17-2023 Tobacco use panel [facility] Start: 02[facility]14[facility]2023 [facility] Start: 1995 Sex Assigned At Female N [...] of: URMILA Ghosh documented in this encounter [facility] Clinical Note 07-09-2023 Note Date & Type [...] to help relieve symptoms, such as: ? Tlcg-jqm-thwxfzx cold medicines. ? Cough suppressants. Coughing is [...] other clear broths. General instructions ? Take oxsp-jyl-horixjq and prescription medicines only as told by [...] and water are not available, use hand bulk cooler installer. ? Avoid touching your mouth, face, eyes, [...] symptoms may be (more content not included)... [facility] Clinical Note 06-23-2023 Note Date & Type [...] ? Medicines that treat allergies (antihistamines). ? Fdrd-thi-qyzkjft pain relievers. ? If caused by bacteria, [...] home: Medicines ? Take, use, or apply sewd-ehl-ygzwewc and prescription medicines only as told by [...] and water are not available, use hand bulk cooler installer. ? Do not smoke. Avoid being around people who are smoking (secondhand smoke). ? Keep all follow-up visits. This is important. Contact a health care provider if: ? You have a fever. (more content not included)... [facility] Clinical Note 03-21-2023 Note Date & Type [...] ? Low-calorie sports drinks. ? Eat bland, zafl-do-hhzjzw foods in small amounts as you are able, such as: ? Bananas. ? Applesauce. ? Rice. ? Low-fat (lean) meats. ? [place]. ? Crackers. ? Avoid drinking fluids that have a lot of sugar or caffeine in them. This includes energy drinks, sports drinks, and soda. ? Avoid alcohol. ? Avoid spicy or fatty foods. General instructions ? Take siwu-meo-pakigyx and prescription medicines only as told by your doctor. ? Drink enough fluid to keep your pee (urine) pale yellow. ? Wash your hands often with soap and water for at least 20 seconds. If you cannot use soap and water, use hand bulk cooler installer. ? Make sure that everyone in your [...] doctor about eating and drinking. ? Take atau-xqd-vlzbmgn and prescription medicines only as told by [...] Reviewed: 01/03/2022 Else[employer] Patient Education ? 2022 [employer] Obstetrics and Gynecology Warning Signs During During [...] Shortne (more content not included)... [facility] Evaluation note Note Date & Type Note [...] pital DATE CREATED AUTHOR AUTHOR'S ORGANIZ ATION 07/23/2023 [facility] DATE CREATED AUTHOR AUTHOR'S ORGANIZ ATION 10/12/2023 [facility] EPIC Reason for Visit [...] BE BASED ON THE PRIMARY CLINICAL RECORDS. [facility]. provides no warranty or guarantee of the accuracy or completeness of information in this document.
== END 2023-10-12 20:16 | disposition home or self-care (01) ==
LOC: LAB 20:15
PROVIDERS: Visit Provider Obstetrics & Gynecology
DX: Z34.93 Encounter for supervision of normal pregnancy, unspecified, third trimester (principal)
CPT/HCPCS: 87081

== ENCOUNTER 2023-11-02 04:48 | Inpatient (IN) | payer MEDICAID, SELFPAY ==
[2023-11-02] VITALS (47 sets, daily range): BP systolic 71–168; BP diastolic 51–87; PULSE 71–130; TEMP 36.8–37.1
--- OUTSIDE RECORDS SUMMARY | 2023-11-02 04:51 | XMS_ITS | CCD ---
Author Organization [facility] Care Team Providers Care Clinical Systems Analyst Name Role Phone SHAHNAZ CORONA Admitting Unavailable [...] Attending Unavailable SHAHNAZ CORONA Consulting Unavailable FARRUKH PAKR Unavailable SHAHNAZ CORONA Admitting Unavailable SHAHNAZ CORONA [...] Unavailable Blunt, Caden M Primary Care Unavailable Holland Patent, Deven Jacob Admitting Unavailab le Holland Patent, Deven Jacob Attending Unavailab le Unavailable Primary Care Provider Unavailgerman e YAEL, ALEXANDER Attending Unavailable DELONTE, LIZBETH Attending Unavailable DELONTE, LIZBETH Attending Unavailable YAEL, ALEXANDER Attending Unavailable YAEL, ALEXANDER Attending Unavailable DELONTE, LIZBETH Attending Unavailable YAEL, ALEXANDER Attending Unavailable YAEL, ALEXANDER Attending Unavailable YAEL, ALEXANDER Attending Unavailable YAEL, ALEXANDER Attending Unavailable Allergies Allergy Classification Reported Allergen(s) Allergy Type Date of Onset Reaction(s) Facility (1 source) No Known Medication Allergies; Translations: [No Known Medication Allergies] Propensity to adverse reactions to drug (disorder) [facility] Repository Medications Current Medications Medication Drug [...] UA Negative Negative - 4(70) +++ mg/dL [facility] Blood, UA Negative Negative - 50 Diego/mcL [facility] Clarity, UA Clear [facility] Color, UA Yellow [facility] Glucose, UA Negative Negative - 2000(110) ++++ mg/dL [facility] Interpretation and review of laboratory results Normal [facility] Ketones, UA Negative Negative - 160(16) ++++ mg/dL [facility] Leukocytes, UA Negative Negative - 500+++ Radha/mcL [facility] Nitrite, UA Negative Negative - Positive [facility] pH, UA 5.5 5 - 9 [facility] Protein, UA Negative Negative - 2000(20) ++++ mg/dL [facility] Spec Grav, UA 1.015 1 - 1.03 [facility] Urobilinogen, UA 1.0 0.2 - 12 mg/dL [facility] Coding Summaryon 07-22-2023 Coding Summary HTMLBase 64 KpovyfzxSHr9tMi+PGhlYW Q+EU2PZIAlR64rnHTmlP0r E0GEEUxEGuhsHEPBNWwFBf WpfqPjEG9pqRSnJPJx IC8+AJ8gIHCjWnlmbYJpi9 W0wGG0N44yqg3vRHlqiDI8 WUNwCaRyvsege8zrtLy7RT cuNmluOyBt HMNhbO42EWE2zG64Bw44cA VxtLKui5deqRk6SoCkOWXv GQO4vJvnVAqbq9YaXAWgU9 8spXUvy8G6 QFSrfSvpqNBsDqFsaYR6jT 4kBUrykhgwf3eevlslZhm8 ao70uPNfu2Y4mAT9J4Xtwg F6HFZmkUFa RedshQFXoQ1ntuvtw2cyve cfReKvVPHtIRi7LRc3FPSm hApxQtXePL17EIX3YIZdid SaB9WoQVIs gHdjDpR2q2J2Ml8IO7SASg qxH4GLPCGHYXnhvWK+PC90 dh53W8TdVikzXis5FELnEI H2mPF1rG0r ZLLnRWltg0D7dVK2B0Giuu Zavx6ln0tbKPEwDEhyE57r fMZbi4I2AEJphDJ6BDCxnD mcSyRkeZ20 Oyc+YUXtrWrun5HvMmrln3 lmz7souEx9MevoPVEvbdTe sFrxFBI6y2NmBz6lLODilX L1lLT7dN5a ZwSbKrC4XWldL378CxQiqY LbLrkuH23yS9LcpBX+PHRy Pxp3AMKigJjwXT8xH1OkJO RpbmctbGVm zVrxSZ9rXYPxhoaoGXMrhI 9dDZKlG3l6WpNuUrS0DSzs R9HvAAXoefrtXa58jA3fZi JkEjV7QIce J8FuyvV5OJSwpZDxYDptCT W3R53kc0C5DWLwLMJfNRG0 uIF9eC0loVuoztvwuJWmqP sgdmVydGlj AZwrMCtoH929FGYeaJodHd NvZGluZyBEYXRlOiAgMDEv MTAvMjAyNDwvdGQ+PHRkIH Q2gGfhKQQw iUTyNOzkXf0irApkpXuqYN 3gJPXicsncCICjlT8kKUFo uPYhyHzdFX2qJDYtqwtii6 48HuLtMLA1 ZOYhbFKkG2JqlV8gPyZmKP OxVNZlV3NmeQRgRDjqW517 XNpcYlZ9GQRocyIpV7UkEW FsaWduOiB0 s4H3Fy5Tl2EtigcrG1VzxB PoAqWlZvutQYx5L6HmTlms dHI+PU53DALdVO75XTf2GL W2cPlaURzx IWNsT6NltE3oWwWkEJQaGT RkOyc+PHRhYmxlIHdpZHRo PLwgSCCrOzEnuYqfHV9vAw 9yZGVyLWNv sNuvlMQnFwAln4ywEPZpNM plXC0gtLpiE4WfcBQ4UQZu w8q8Al29Z57fE3MtzYL+PG KxqAK5tMV4 pJ3qTpUfZhZ1XIhwE540Kl WzcHJmSdilp3ivc7hfyDd9 XiG8VKYkmfNobAkrPTA2v4 NoFz66R29f IHdpZHRoPSIxNSUiIHZhbG enov4kmF0hTc4+PGNvbCB3 pLX6lM4wKqMlQtX1RCkrK6 49InRvcCIv Tpsey7yhi8uydLp3YhHjSX QmpmSutBtcNGB6x3QbTw89 W9AedNjrs8VxZra9kc28qF Pst2J6wAN9 F3PpGNBildhfdINpaSovIE 0jARVcpzdbLSQjaO8pHTHs J7o1ErUpEuS7PEigY0Hiwc N1BKOrtJFs BIOcnHRYdO5xxbllv3yims wlDuScMCYvCUf5LPm5RLVw iOpdWwYnDFG0PqZ2EJH4zE LcyM8epIcj fbypmU4aAqx+EKN1zKXtkM QEYT0wKgkliKH+PHRkIHN0 bZaiBShlYBAsxL4cQHTzT1 x6JkEiZiQ0 ELrsX3RhdmK4KAYhbFNvJH HubLYVvE6lxbbso8dmwgsh KsNlOPSpIYs7WSa2GCUndD duOiBsZWZ0 KuH3CVV0lKVlkQ6lxRaviw yexY8zNxq+QmlydGggRGF0 VGl4K6LoWbs2ZKKmwYpqNV 0ncGFkZGlu Yi5cqHuxmByvNJ2cLDEthh kug958MuRwl9gpLCKojBHf BGkxSKE2F54io2S3ORKsND CpSCB3qUB3 kT5fiNkjhvxacHRkjUnjmo BmmDykCIkyRKzlH919RWTt nAfsJxAiLAt1L3XtEzd4MF UtjBeiAV6h wFXqAKxeIo6buSheiFumIA 1eRQDqzupwn136OqFuw8zm WVDmsSQiDThiMBD0Q01ej6 M2WYJlBSQn KOF3pPD2jQ8frScchfcagP VmdDsgdmVydGljYWwtYWxp R690HQBchBflRgUqoIr7K3 BhJpg9ZTZd tBdzOH1kxQZgFSqwRi3hoZ vaqEtqQM3zVCZmelqak013 QuGgj2dbWDGuoFZlCOobTA L8P26fa1W3 BUGoMZRsDRA8dPL5dL0mcF lnbjogbGVmdDsgdmVydGlj STnaVYfsB979PVIqzOiaQu BhdGllbnQg SGlpCRt7D0PdUjvexGA+PC 34WLEsTP98tUWgbQJmz2bh lGt0HkWzVBReCMI4zRswQD bxw6DcBXIp T17wpLUtn9X5WUOwwCmtfL OmAbMmyFI9dI9zISlivjrw r4bqdrsnCwuqs8dpzn44hM 33J56qRUfw ZHRoPSIzMCUiIHZhbGlnbj 7hkV0pQg6+CDIrqCR5sMQ8 pO6lIQLtIlQ2VNuwE295Vd RvcCIvPjxj v7lbj7bawHv5JgI1AOXobo MxrJesMTE5z0SsGg39X80e IHdpZHRoPSIyMCUiIHZhbG ppob8gsM5a Ii8+HWMrtHS6pUO1zF7tAz IxYaI6DAlrF764IrGfgLNf IaryX01wP7QfjOL+PHRyPj e8VSDofJwh CH0ziLQlIRnxJd8xHZS1Ns EoWnEiMTfuI8GcPFJpeegu abzagYO5JQGgMKJocZ81Ot 9udDogMTBw iBYNvK6flcgyg8khunxzJg ZtYTImIUx5FCe1LZHgkQxg WwNsQUR0EeZ9GKU2nOPdvB 1hbGlnbjog kO0dL8QiSIZjiehcMv55jH 3xGnIuXbO5POlaJys+V0FH UsVGQGUUZGECYE1WOZAKEh wvdGQ+PHRk AHU7lIdnRGqfXWYxfJ8yPC LbU7q3TnApAlR3LGafD3Vg CYZiamuhQb87fH8rEsYrTj N0LHgcQ5Jv wjO1DQDxeMClKPcfSNW6I6 3ln3Q6CSQdFWFsBXN8gLL8 jX5qcYebspwynQLehIbsbb VydGljYWwt LKbxT291LZDruIxuHoFdVf G4ZyM5WNl7Y8AwEpv1AZOq dBbkIQ4inNVwKWyzOz1vcS nzcLurYD5e QESzsgkpFBGkoK1pRQPltN ZqlAtbCW4pDIHmrbdnv547 WkShYPS7RXMkdOTkK8YreH 9yOiAjMDAw FOShW2DbmWUvZHdjB343RP vtZyO4RINcvsEnX8CoFFLo dAsnTaK9x8N5Ph9xIMSQCK FyczwvdGQ+ VKMuGQJ2hUdeNOkbTPHclK 7aKJRyV4a5EcWoDhH2UVso Q0TmOFManequVj12fI5lFh KrDlR0PJor O8XeliJ9YWRlsQVaUBflVG I7T02vg2X4TXBgFVAjVXO8 oNW8lN3feZmfvexcySQlbS sgdmVydGlj HZydCVidX112SMSnwFcaZh ZFTUFMRTwvdGQ+PHRkIHN0 zCmqBUhnLLMzoK8tQUDaL9 j7QwBpFxY2 YAizQ6CfOTNeohioBy21jB 3oCgUcJcH0TTwdQ5StqyY8 BCQacGAoBTdxYUP1I28yv6 R9FMSjXGBb LWI9cJO9fK6loLnvyyfqsR VmdDsgdmVydGljYWwtYWxp C620MXPuyQmlLgXlBFLgKP 5jeTwvdGQ+ AZ27qh80J4SvWqpsZrr3KA GmAEV9fTD2tQ0qJQKyXBlx v1U7pHT0U0VfwyPlin8nk2 xsYXBzZTog H33pyTVfb3A4HONwhYF8ZY MgtHyvFoKfaY97Fkc+PGNv bVgml7UlEirgk5pqj8mngS k1LvTiSIKq leTmeYcsVBD3r2CsId96L7 9sIHdpZHRoPSIzMCUiIHZh fZrgmw8mxB8yAm8+PGNvbC Z4gJI6nI1j MhPmQwE9MSxyG032LgCxiL WrHjksl3fsc6jgqRh2NcEg YNSbamHmoWvaPVI8n5VkBs 09E0KcgRoh o8CzUgp7lo93nTXar6F4xH E9N5TfZIQvaqebgSYmwYtz QS2aPKWeoeezSVHusU6wRH QoG0c3TnVo KhX1JPtvT1ZlwhY0MUBohZ NxYJNmnSQPpJ9uxxtdz7ys vrysKpWiQYWhLOj4MBq7RC FsaWduOiBs ZUD5SoT0EFS3aOXisP6ddH ccdnhfeW6vRnv+AIe6b7ew mUPcFQ9bhWO7KQ18FB43vW Qjr6J0sOU3 I6HrRFYpzgidlusxzPQ1CF JzVQIyhM08Tw7ifLlwUl4o RGQjBLM1OMCjqUVbH1DbyH 9yOiAjMDAw ATTpK1ClbTFeNJzxU693DT cyQzQ1MDPffrAnB0HcWYPs hVnjMpV8z0L0Xx2UMO85GA 96KM43nXAh b0R2ySV2J4EcMGKmgthjwa hnpHS4HMRyXVFbyE66Zz1g mNshTn0zNYLcPQD0OXGuqI XgQ0VlgF0f TjJuWKVrDDOnN8GodBHkTR ghE657UIrjYlL1ITFmcvUj Z0NdAKYjnFskTyF5d0L0Uq 6PPp20VV81 PJ00zWNtv1H6tUT2S7PzDH PvttqajrthlGQ0XVGnPXCz vI26Xs0wbQqvJg1cGBPfZG K7TTCnkPUo Y6VxeI2iKiIgTYPnCCTmE5 VwrMLxEUplX582AQhjJzS6 MJBhahCrE0HwSWAbmNxeNo F1b5X3Vg3C LAmlfuu6Q7DgRxslbGB+PC 31EPIbBE02rAYckLFvc1so iNy7NeRjHDMlJAB7gQppOV dng2WdQAOh Y29 (more content not included)... [facility] Consent Formson 07-10-2023 Consent Forms [id number] TGTIFF [facility] ED Clinical Summaryon 2022 ED Clinical Summary [facility] - Emergency Department [address] [place] [address] ED Clinical Summary PERSON INFORMATION Name: BETTY RAMIREZ Age: 27 Years Sex: FEMALE : 1995 MRN: Acct#: Visit Reason: Fever; Cough; COUGH, FEVER Arrival: 07/09/2023 12:39:18 Discharge: 07/09/2023 16:57:00 LOS: 000 04:18 Check In: 07/09/2023 12:39:18 Checkout:07/09/2023 16:57:00 Address: [address] [place], [place] [id number] PCP: Caden Lauren MD PROVIDER INFORMATION Provider Role Assigned Unassigned Patty Wang EMBOSSED OR IMPRESSED LETTERING PAINTER Nurse 07/09/2023 14:55:21 Baldo Fair MD ED [...] Adult Follow-Up: With: Address: When: Caden Urbano [facility], [id number] [place] [address] [place] [id number] Business (1) Within 3 to 5 days Comments: Call for follow up appointment DIAGNOSIS: Upper respiratory infection Patient Understands: Yes - Patient/family/caregiv er verbalizes understanding of instructions given Comment: [facility] ED Note-Nursingon 07-09-2023 ED Note-Nursing Patient taken to [place] [address] at this time, delayed rooming due to high patient census. Patient is aware and denies needs or concerns. -05 [facility] ED Note-Nursing Pt. C/O of having fl u B two weeks ago then getting better. PT. states about 3 days ago she started to have a cough with yellow mucus, fever and pressure behind her eyes. Pt. is A&O x4. PT. has a steady gait. [facility] ED Patient Summaryon 023 ED Patient Summary [facility] - Emergency Department [address] [place], [place] [id number] PATIENT DISCHARGE INSTRUCTIONS Patient Information Name: BETTY RAMIREZ Age: 27 Years Date of : 1995 Reason For Visit: Fever; Cough; COUGH, FEVER Arrival Time: 07/09/2023 12:39:18 Primary Care Physician: Caden Lauren MD Attending Physician: Baldo Fair MD Comment: Visit Diagnosis: Diagnoses This Visit Cough ([id number]) Fever ([id number]) Upper respiratory infection (J06.9) The Pharmacy at [facility] is open Thursday through Thursday from 9A [...] contact the [facility] 02/02 Crisis Hotline -Text 7WEPF to [phone]. If you received any narcotics, sedation, or [...] legal documents With: Address: When: Caden Cavazos [facility], [address] [place], [place] [id number] Business (1) Within 3 to 5 days Comments: Call for follow up appointment Medication Information: The exam and treatment you received today in the [facility] Emergency Department were for an urgent problem and are not intended as complete care. It is important for you to follow up with a doctor, nurse practitioner, or physician?s oceanographer assistant for ongoing care. If your symptoms [...] so we can reach you if necessary. [facility] Emergency Department has provided you with a complete list of medications post discharge. Please inform your nursing administrator/provider of your visit and for further instruction [...] You are mor (more content not included)... [facility] XR Chest 1 View Frontalon XR Chest 1 View Frontal CLINICAL HISTORY: Cough. Wheezing. TECHNIQUE: One view of the chest. COMPARISON: [None.] RESULT: No focal consolidation. No pleural effusion. No pneumothorax. Normal cardiomediastinal silhouette. No acute osseous findings. IMPRESSION: No acute radiographic abnormality. Final Signed (Electronic Signature): Wesley Pillai MD 07/09/23 4:32 pm Technologist: Salud CISNEROS [facility] Coding Summaryon 06-30-2023 Coding Summary HTMLBase 64 WfznumhlCMt8dEf+PGhlYW Q+KP3AYVMsN43blUCpvV6r K2IGOHoRTagwAWHYPZaMGr UganBlIT6sjSLwTGKh IC8+TG3sRAOtMwajtDJqx2 E5yRK2X07xuy5hFCkdjTU5 SYFqNtGiktgwp7qtmVh3MG cuNmluOyBt CUAfqI65MJS9uV09Pu60xJ KmkVRsv0egoHq8LjEjTEEf KDM2sFheZGslh3BtKFPwM7 9viVGbs6S9 YEFpfWwvaFTiEqJoiNB3vE 6mVSwlyfzqs9gidbuyMlw7 ys61zDUki7O1gOO0P6Woxs N2WISetVEp JknkrTKUiG3bkszgc2crbl blAzDvZHIqQFz7QRc8UOVr iIauEcThYS93MKQ8KCHzwt SwU3ArYXFd iLpuRvB9l6I1Yt8MV7FZDq uhB2CHJTCHQEhiaWS+PC90 ob48L8KbAxtqYvj8NXJaQB K3xUY4oW2s YEGsZTfxi0M7iAG3Y5Hgjo Hpoo4es7dfYOBlMZskW78j qBOqi0C0SMUdnHY6ZXKhwJ ywWyOcuT33 Oyc+BBChbSohh9XoToqtu4 jug9bwmNd4XaktREFznpYh nUwwZGN6a9WaVu5xFDUnaP B7rOR0nL1n LwLqEfN9SOyuP511PgHnnQ EnFuymW47mO1AtvGT+PHRy Aia0URJpfPswOH6gM7HiAV RpbmctbGVm bPhwJS8kCAIekzmlFGXqdC 0gIAReP7a2OaTkHvA2TPcl O8NkTCRguvooXn24qX0gCd AyFlZ9YYax C5SzvcW0AGFpzMAlCWenTN R9B20xt3S9QIQkOQOyCFX1 tCU9fS4vyQcjkffozIIrvZ sgdmVydGlj WEjdLBzrN246AJCjpHdiUt NvZGluZyBEYXRlOiAgMTIv MTkvMjAyMzwvdGQ+PHRkIH I4zTppTZYs sAPeZOrvHu6coGbnfJolWS 0kFGXyoxomCESwmI6bWCVl dZWbuCsiYY2iFSOppajtj0 12XdKmFSU4 QRWexUYyO6NmqG3aVyEsRE OqWBMcB8IijSUqSOghK165 DKhrBsC7VOSeteFvE3KrEH FsaWduOiB0 f8S9Vf6Hr1DwxwceV8NdhQ DwXgFzFxeiYNg7X0CkLvxo dHI+PL05BGYbVU95OEy5LT H6uXidIXkd QQGhR8LmkJ4oHtAgKSZmWT RkOyc+PHRhYmxlIHdpZHRo RSfvDNMoPdWfpOztQW4nIl 9yZGVyLWNv bCoriNFfQqUbq4edRIQwAA stEC7opXrzL3JfwEG8AXKr v8x5Sc62Y31mI6WylNO+PG ZnaBQ5bAZ7 bO6cNrNoYnV4MNmzG265Fe VntOCxCabgc3bch6sbrZt1 FtF9HSTlsfEqjVgjIIB9j5 OmXy89J36g IHdpZHRoPSIxNSUiIHZhbG zwru8dnU5xBd0+PGNvbCB3 hIK0fX9rOwFyXkH1YOluX5 49InRvcCIv Ynirr8cbw6gkpQk1ZzMtPL XxpyRzzRqeRTX9l0RwSv16 L1PtiKaku8WaHzo5ma29pG Zil7Y5zNU7 K4NxURKwcuatjDSgtWybGJ 8lIPVuwxlePEWhrL4rHNMc C9u9KjZqGzY9JDrhQ0Xsnt U0LUKbrORb ICNajBYNxO7iomqku1kzfi ujHhMvIAYiYGr7LRk0BELn jNceXeKtPSB5JmY8HTE6mN CceK2mbNwn depbaV9aCot+IVO1kOCiqN KDFJ7cKkioqKJ+PHRkIHN0 wDzlSGbgJZTfqT5eZVXtH9 c9RpEvSbP3 BQjrO5RnptD3ABRstBQsTF YpqEGWfS6nguqdb9bqogxd EmQjGEGjNZo9ZMl1EDPfyX duOiBsZWZ0 FlY5OBE3rZAepF4abCayii vhjK1uNtc+QmlydGggRGF0 KZn1K5NvMnc2ZNUuxTvwFJ 0ncGFkZGlu Fp1fiElhcZasKJ3yOXMacv gea992CaWxi5vdLJMneCNn FBijPZG5C14sr5Q0BVTiDN BoMRO9dRB9 fE2zwEvqdcrgbLZwjUwtbl TinMprVHbuZMmdK350DXDe zXygAoSkRQr2W5TjQej8AA XvoDdnSF3m qUOrRDxoVx8vaYlbzXroOX 2wVARkwelds877YdVja1rk TUSuaKYhUIxaYEP0A93dx5 L7MIAlPBZm KCG7zAE2oY7axNjqvwfooI VmdDsgdmVydGljYWwtYWxp Q563ECErpPrtNtVjuMq2G1 IuStu6ANMp wTskWN0bsBDdLGmxIa5wfI ggkOeoWC8xWYHqhhkzs792 BnThb2mdPLIaiLEhXWodBG O9Q30ar4L4 LIOyGDCvPDH9iBO8oB2mcL lnbjogbGVmdDsgdmVydGlj DXdxITxpN471LZUsyApoNp BhdGllbnQg RGixIKw0B7PwQbextWK+PC 61ZPQqSM83jJMtxLNkt8ew zWo0IyBvOPRdCIU2mUeiSK yak3CxYOJq W86zoDCdh7E1WBElsLpzsE UuQrYvkVN7cM2qYHicqtyx c6lerimaFnjue8bnel45kR 77P56tHDry ZHRoPSIzMCUiIHZhbGlnbj 0tdI9eKf6+CIYfnIU2ePN7 lR6dITBqJgK3UCcxD265Ha RvcCIvPjxj d1bde6shcPz7TtG3TTXpbv KuoVuzLOZ6e9WyMu66H94p IHdpZHRoPSIyMCUiIHZhbG vssf9cfI8y Ii8+FWFloGY5hZV6gF5aAd LaPoZ7PAbsK413JyLflRSg LcbzD10sQ7YoxUR+PHRyPj g3BEHhoTmn WQ9wcFYtVMbnZt9rJMQ3Hp BhEgVkZZsbS0QvFKUjqrnk yrntyVR3SJYkCRKrdV79Uj 9udDogMTBw cRQCzK1wtpvxg5xnmcnlRw XnIZNqYEu6JCb4WDKhgTml MwQdHFV2PaE2UXS6qFCyjX 1hbGlnbjog aI8cM1RcJZMomfmaIp68jL 3vAwPsMxL3RGazVmc+V0FH GtTFADCXKXRWDQ6XPMGGDe wvdGQ+PHRk TXN9qMtbBHkaHNKcsU8lZH PgV4h5NzKcDpK3IRsoO3Ai AWDqhbsdNo13eK3qZpWpSk Q0ENotQ0Vt xnO5XZYurLZzAKqeKOW6B7 9zd3P4MNHtEKBjLDB7yXW1 rL4qnYzpasprkGHpoWfhqh VydGljYWwt NNcxJ962YPDieHdeLiVcFf K0DjR0UAy3V5HrCzs0STXd fIbtSH4iyXUmRNphKg0iuS bhkJggVF3f KTZvkxpeAJLkwR1wCAEtfJ PavArwVX9sRZVppcmeg833 VlGfOTR7RVPnxYAaV1EgiX 9yOiAjMDAw ZWNnR8OfoRBuDXckT208LJ jdAaR8PVQaoyKcT3HpXGDr xWzhRzR2o4T7Wg6nLYPFBM FyczwvdGQ+ OKEeAJC5mCycAMpsWAHhfU 5tRDNpP0k1DhPbWjW4DSnn J6WcCJIsbtkcVw51zX0oKz GlOzK2CBuq X5MzgiS7YAXssEQrOUbzOQ F1Y51ds5H1ZQYhCBKfHNZ4 vRI1rK8pyLztcxcvfLEirF sgdmVydGlj FMnlCExxZ495KQEdfScuXo ZFTUFMRTwvdGQ+PHRkIHN0 yVfeHKwgVJQufH4dUQDqI7 r1ZcOrNrA2 SYcbI4JtHWOfkcaiHa30bK 7mDiRjPeL4FNomW9VcqsR3 ULZfpHNfCGmiFOU5O01hi7 S8JLJgEJFu VIN9dRV3nL3xrQtbjojauC VmdDsgdmVydGljYWwtYWxp G852NOLqjNcpWsMcEQQkZN 5jeTwvdGQ+ GH45zb28D7RdGtywQpv0RO YkOWC7tWO0zO0yGLFzTFzk i2H9qLG4Q3SbkoQksi5xn0 xsYXBzZTog D25ptVXxc9W7WHOsgNT3WO FvuYirPlFipN95Jbi+PGNv fUbaj2SxCdngf4nha3knhG t8MwGgIWRw scTznOfyQZD6a6FjPg98D7 9sIHdpZHRoPSIzMCUiIHZh bOflmi1gfB4bHd0+PGNvbC U1vTB0mS4e BgIsKkJ9AOeoP745NoLawQ GqQrqxy0tqi3oljFr5QhSa NZYzpeEplLqpMBI1e7KlQh 55W2MxiLvr c2MnYhb7mq80hAOsa2T0eV I3Y7GyCEDrrrxfxELtvSyo CG1tVCSqqkomBSCbfE7kUW OkM3c3TdDj BiX4ROoqL3HlqpX7NINnqW FbANEroGAKzF1mqtcei5la xnhkFrSgHRFaMUo3FMp8JE FsaWduOiBs JWN9TxW6VAJ2tLMotY3kdZ eooukrmA1oJlu+EDj3k4cl cHJwGJ9bfIF6ZG06QE82aH Fub8D5oRO6 H8UwYHCwnphoughfoWK1DK LfBHUjtC42Hb1kgZocVg5j UYNbERP2DJYklZCwX1XluR 9yOiAjMDAw NQJaV0NstJAfJOqoY482TI osKlO3XHYlkoOzE2OmIJDc uUwuUpP6e4H3Pu4YTN28TR 96HN50qXSf o1Z3dXZ2F8VkLQSeubirpe jhfYV0BYHwLIQhtK70Gq1a zNqxLn6cYMBuBCR3DVLbdN EqF6ZzfG7k XkRmEHCdLAHpJ1SkaCNcWL ggX454SCfdEdI9QGBsipJs F9ImWEJdqPtjZhZ4t2Y9Kn 8UTn11WV28 QZ00cLPwo4L0mBO4N1AwSU QwdcdxtkpgrBP3BKBmEGGi wX47Mv0xoUsfKm9wDKRwTG U0ICBjfSJi W8CbyH7vWmRtTFClAROrJ5 TgcPXgEIcbK855KZnnUbP7 GZMyppHlR0FcPBNbcNtiFl T6h1Y3Td2B LOyaafp9W3KbPyavjSU+PC 08QADfZK82zOBksHDjh3tj jEx3QgZiBLStLSQ4tWkjCM whm2PeKFVl Y29 (more content not included)... Normal [facility] C Throaton 06-25-2023 C Throat Ordered by Vira. Normal throat sierra isolated No pathogens isolated [facility] Comment on above: Performed By: #### 7 [id number], [id number] ####[facility] (DEFAULT)[address] [place] [address] .QC SARS-CoV-2 (COVID-19)/Fl u/RSV (GeneXpert)on 06-23-[address] [facility] Comment on above: Order Comment: Order ed by Vira.[[email or web address]] Performed By: #### 7 [id number], [id number] ####[facility] (DEFAULT)[address] [place] [address] COVID/Flu/RSV (GeneXpert)on 06-23-2023 Flu A (GXpert COVFLURSV) Negative Normal Negative [facility] Comment on above: Performed By: #### 7 [id number], [id number], [id number] ####[facility] (DEFAULT)[address] [place] [address] Flu B (GXpert COVFLURSV) Negative Normal Negative [facility] Comment on above: Performed By: #### 7 [id number], [id number], [id number] ####[facility] (DEFAULT)[address] [place] [address] RSV (GXpert COVFLURSV) Negative Normal Negative [facility] Comment on above: Performed By: #### 7 [id number], [id number], [id number], [id number] ####[facility] (DEFAULT)[address] [place] [address] SARS-CoV-2 (COVID-19) RNA MAYCO+probe Ql (Unsp spec) Negative Normal Negative [facility] Comment on above: Result Comment: Perf ormed by PCR methodology. Performed By: #### 7 [id number], [id number], [id number] ####[facility] (DEFAULT)[address] [place] [address] ED Clinical Summaryon 2022 ED Clinical Summary [facility] Emergency Department [address] [place] [address] ED Clinical Summary PERSON INFORMATION Name: BETTY RAMIREZ Age: 27 Years Sex: FEMALE : 1995 MRN: Acct#: Visit Reason: Sinus Pain/Congestion; Cough; SORE THROAT, CONGESTION, VOMITING Arrival: 06/23/2023 09:52:37 Discharge: 06/23/2023 11:16:00 LOS: 000 01:24 Check In: 06/23/2023 09:52:37 Checkout:06/23/2023 11:16:00 Address: [address] [place] [address] PCP: Caden Lauren MD PROVIDER INFORMATION Provider Role Assigned Unassigned Deven Marie DO ED Provider 06/23/2023 09:55:34 Nestor Wilson EMBOSSED OR IMPRESSED LETTERING PAINTER Nurse 06/23/2023 10:25:25 VITALS INFORMATION Vital Sign [...] Medical history: Resolved Superficial laceration of scalp ([id number]): Resolved. Acute laryngopharyngitis (55261524): Resolved.. Surgical history: No active procedure history [...] Reevaluation 27-year (more content not included)... Normal [facility] ED Note - Physicianon 2022 ED [...] Medical history: Resolved Superficial laceration of scalp ([id number]): Resolved. Acute laryngopharyngitis (72242976): Resolved.. Surgical history: No active procedure history [...] amoxicillin. Impression and Plan Diagnosis Acute sinusitis (WWM12-WD J01.90, Discharge, Medical) Plan Condition: Improved, Stable. [...] understanding of instructio (more content not included)... [facility] ED Note-Nursingon 06-23-2023 ED Note-Nursing private vehicle arrival with c/o cough congestion since last with multiple sick contacts at home. lcta. maintains ra saturation. rr even and unlabored. [id number]. no distress. oriented to call light. s/o and childx2 at bedside. pending swabs [facility] ED Patient Summaryon 023 ED Patient Summary [facility] - Emergency Department [address] [place], [place] [id number] PATIENT DISCHARGE INSTRUCTIONS Patient Information Name: BETTY RAMIREZ Age: 27 Years Date of : 1995 [facility]: [id number] Reason For Visit: Sinus Pain/Congestion; Cough; SORE THROAT, CONGESTION, VOMITING Arrival Time: 06/23/2023 09:52:37 Primary Care Physician: Caden Lauren MD Attending Physician: Deven Marie DO Comment: Visit Diagnosis: Diagnoses This Visit Acute sinusitis (J01.90) Cough ([id number]) Sinus Pain/Congestion ([id number]) The Pharmacy at [facility] is open Thursday through Thursday from 9A [...] alcohol and/or drug addiction problems; contact the [facility] 02/02 Crisis Hotline -Text 3ILSW er [phone]. If you received any narcotics, sedation, or [...] legal documents With: Address: When: Caden Urbano [facility], [address] [id number] Business (1) Within 3 to 5 days Comments: Call for follow up appointment Return if symptoms worsen Follow-up in 3 to 5 days unless symptoms are resolving Medication Information: The exam and treatment you received today in the [facility] were for an urgent problem and are not intended as complete care. It is important for you to follow up with a doctor, nurse practitioner, or physician?s oceanographer assistant for ongoing care. If your symptoms [...] so we can reach you if necessary. [facility] Emergency [facility] has provided you with a complete list of medications post discharge. Please inform your nursing administrator/provider of your visit and for further instruction on these medications. Any specific questions regarding your chronic medications and dosages should be discussed with your primary care physician(s) and/or pharmacist. New Medications [id number], [address] [place], [place] [id number], [phone] amoxicillin (amoxicillin 875 mg oral tablet) 1 [...] sinuses. W (more content not included)... Normal [facility] Strep Aon 06-23-2023 Strep procedure control Pass Normal [facility] Comment on above: Performed By: #### 7 [id number], [id number], [id number], [id number] ####[facility] (DEFAULT)[address] [place] [address] Streptococcus A Negative Normal Negative [facility] Comment on above: Performed By: #### 7 [id number], [id number], [id number], [id number] ####[facility] (DEFAULT)[address] [place] [address] Coding Summaryon 04-03-2023 Coding Summary HTMLBase 64 FpwsjbkgFLs7lXl+PGhlYW Q+EZ5PHOZzE06fkCXjqO2i U5GFMMuBXtunDVGOFGwWCc HsjvJdOB0rbOCwNZIe IC8+JP0tSBJvPhrvmKKvb7 R0wNP4W14ejh7pMXrpkML2 CLGuEmCwyqtse4leqHc9SZ cuNmluOyBt HVDwqS61OIX7fG60En81mP LtmJSsh2lkrRd9KzWrGMWi MLH5kYuxNAqdr2QsUVQnA5 4nqSZuy6V9 MUKfxWllaOYsVkRghRJ5pY 4dRHgterfop9aetrxbFet9 so05eGGrs5J6kGV4T9Qmzm Q1JSQxmXRd HhlmzLTBxH6qrdqic6yylz duVzWwVSViMYk2FQw1ZTMk zCxzFjMhKK65BDW7SFBsal WbI4HvAGWr iNifZaG8n4C8Sj8WW2MMGo uiI9QRIVNAXPnubXZ+PC90 vc04D1TqEsvyGhj9RKNfZO T0jOQ2wZ2w EUTuGKyqm0T5fIZ1Z4Wbys Thvi9cb6wmHWGhLQqwD07x gCYrk8I3MPOrkPG9OPUlxL wlHvKxfR44 Oyc+VBWnkQthu4YqRrdcn1 cel1vyeGn6XyudBBMvhjBr vHjtHLP3j2WzNv9qYDKglW D0kFS7mN6v TxVeSuK0SCseG912ZvBugY LoBzrpV70iA7QjmUO+PHRy Hdz1NCGzcOutAL4tR6AaBV RpbmctbGVm cJswVG8nVGHgcmdhPYHvrM 6tCOUpO2c4DyOrUnI0YXbc Y8ZwUPHmtkgsAp59vF2rNv PlCoW8PMhb U4BscgL9PLQfqOHoBZmyDF F3F85hu2V9HWXvRIQlCQB3 sJS9xS5xuJbgwmjecYTqgB sgdmVydGlj GTlbKWhyX020TCXhcVumWb NvZGluZyBEYXRlOiAgMDkv MjIvMjAyMzwvdGQ+PHRkIH C4mUaeMIBy nMNsPDceVb3lwUzjlBbmUA 5eYCRbmwuxMQLkoU7oFCAo sRFcnTpvCK3tYICbtvfrz6 46KdQxQRI6 ZLNtaNNrS4LcwO8hEsBhWU ZbKCOoP9RzgTTcZJmbQ636 BGjqImV5RKBqtdYeC1PxIR FsaWduOiB0 g2J0Vn5Ea4VnblvvL4FguC VtSdFdCxywBEt6R4JpNfio dHI+NP00ERYsJE16TPp6OS J5oJgqJAyq AZPtW2BdnT3wXfHeXKAvII RkOyc+PHRhYmxlIHdpZHRo HOzpSYChTgUpgNyiLX7wFp 9yZGVyLWNv tVituTIvLhSqn7fhQTVmJN whBQ9ipBzpT6KvtWN9KOZo y9c3Zx76F02qR7PjcLT+PG GljXV2xLU7 aN4cGuQyWgX0TJvrX882Hb RzkNCmGnzvg5gvx2owrDy0 NtZ3BXHvafFgeKofUGT6j0 UrAr08Z46e IHdpZHRoPSIxNSUiIHZhbG olbf8wwK2qYs6+PGNvbCB3 wJN1mN1zGsHwIuV2BQkeZ2 49InRvcCIv Suxwf4mat1xjeAf4EnDoPG KzhrAvnBqmMUX4b5VhJa31 P7HxrDdro1HoNcm4vs24vX Ekw5V5fDJ5 H0YcNKAvqtxqkQDvbXibIF 0rCNDpfuemEMSnuN2wASKr T4o5ZwQjYiT7DQmwQ7Jhri Z0UZYglEWy BVLjsLQOmS3minzlu0ophh ttIpAuUWAbSYl9MEi6DXAd eBkzUoIlQVS2DsB9ADA9sF WsaC3utTcg srxkiW4pHqx+HQY4cWCmgV AQQM7kMrlifHF+PHRkIHN0 sJeyKXewNDIjaV3wIHJbK5 m9TxJwPrW7 XTarA7LcbeR7FKHshPMoZQ RbnJIXpC7hsjtdz2psrbme RkLxFLBkNZa7RGc6GYZxjS duOiBsZWZ0 OpG3XAG4qLEzhO1sdJhoqr pxnK0gNid+QmlydGggRGF0 BGp1S2IeGnl7ZLWudJnpNT 0ncGFkZGlu Rz6mcMdajZmkQF5ySIVmlg mzf643NeLoc0xnSMUiwTOm TWooSAC7D70zo2Z6YJTtHG NwICW9uYL3 yP3aiCdmnonumGAesYleyq RfxXtzEHngCHfxI604IOQu xVdaEuOyOGb9G9QnIgq1AG IfnIwrBP6d nEEyMWwqYj4siTvsfRikSH 1dKMQvmetgo288UyJct8if CPVenWToYJldZER4H50br4 N4OPJgHANd YLK0jHJ9bR9hcKqvpinwaM VmdDsgdmVydGljYWwtYWxp I923KQHncGezAnPejBa2Y4 OwOhe1XZBd lBphKN9vcEGyAHknTq7wwL gqsUsmIZ2aJYRgsjcve975 LiFrg0stUQHafFHzHWnfTY N1M40dw5R0 JUIoFOBrNVP9gKD3dK4xjH lnbjogbGVmdDsgdmVydGlj MKrzSPukY141ZBIzeTlnAi BhdGllbnQg PRbnYGl5H1BzNisetCW+PC 29KQHuUC62bYXyxOJbx0lq eWk2UbAaPRGwPLN1dOzxFF imx2DuDUOm T12cmRBcj8E3XAZxeCwjoR ElJzXyfNS1pW8qYXgzaunq z3bfrfddXvxtm2uzzc59gF 10R74oVJvi ZHRoPSIzMCUiIHZhbGlnbj 2aqS3nTt6+QTBdmCA1hNR1 hZ7cKHEqDpF4TZxzG023Se RvcCIvPjxj k1ini2dueAb5YuV1DWRyyn VhlPsiQLS7l2JbAi32S61i IHdpZHRoPSIyMCUiIHZhbG hybl9nuI9s Ii8+UNZxiRN7iJH5zQ3gCq UqBiM0YBfgV518AbSuoKMx QuzyU04dJ6UzcNM+PHRyPj s4CDMnfCxb RP4khMUpMBuxEd2xMZY9Xs BaCfCjTNotL7KnLMGnkioz oebjuOD5DTMlFXRkiO15Op 9udDogMTBw fKQZxV9xeivxk3kjfbzwLk PuCEMhNNn9AXa6CIDfeVhj YfLfMWE1CjF9JNW1cLDmkE 1hbGlnbjog pD8fP9MfHVOecngiJz79sD 9vEaJjBdK2PWctJdr+V0FH SmOQMRXSDIVOUP5ANIXYHi wvdGQ+PHRk TIT7vJacJXkhQTNjtJ4lIW LhI7x8ImTgVpN5OCsgP8Qy EBOfnukpBb26rJ8nJyVeZr J3IAtkU0Vd liB6VXEpnTAvHBrnUTY3D2 7xj3L4YZOvFMThBCK6pSS5 uO6hoVguintveEWyoOpstd VydGljYWwt FDbmX389YCLvzLhmHwZkRi F6AoV6JOs8W7SgIzh3BLYa cQwnMY4voSSyTGmdSi4gjN nuzLxbAS0x SHKsyrcsQYQlqY9sHZVkzM IlrNsaUZ3kRPYawbltu526 WsCeGXS0PGKpwOFfG0QjiS 9yOiAjMDAw AZWeK6TpoHFzVAxdY362LT teFzT1ZYYycoBtF6NdHZRw vSfcNrL7d1Y9Ud3nUABFQE FyczwvdGQ+ HMXlYGP9uQlcPEppFWNpyM 8xHUGaI8h6YnPkVwK1UKvp X8OaMSZgqvsjYr41mX8yZf LdJrD4BKsz V0QgyaT9MKPoePVcVLwoNL U6S44qu6D4AZIbYPVsLDE0 uHD0oG2wrJqqntvpiDOsgJ sgdmVydGlj JMnpYFupK031UMPudAhvGp ZFTUFMRTwvdGQ+PHRkIHN0 zPthZMmlOQVesC7wDDHiZ1 y4BgSvJsX5 XQzsL8WrZZAwmdznBy51fA 8uPsUbZwY8ZLitK5SkylK2 ZXUyuHOyPRxyEYM3P69pd9 P5ROAhNTMh MDH3zNT8sY7ifFlizbqhuH VmdDsgdmVydGljYWwtYWxp D668AALseKprCvNpXQSxNS 5jeTwvdGQ+ YF39kn91G8RwVybfPom3YM PpBJS7vUN1gN9sWOIhJUfo g8D1bST3U6ShneNxqy2ef4 xsYXBzZTog P94phDVjt7I1AVKdeIO4PM GxdXohNhCzjM29Oqo+PGNv aTmwk9DjWaqod9swa7ineX h5YuMdOLXc ekFuzHcaIRV5v4YgKs08U1 9sIHdpZHRoPSIzMCUiIHZh hLocsg6upU6oDd0+PGNvbC F2vDG5wC0j EnXwGfU9BZprG101EyVdkM StQbtrj2akg9fhcFt6JyPg AYYybvLfmVyhLJI8n2XtCu 80J4UxxDla r4BiCqi6pf70iFLey3Z1zS P6R9AyWAVrkushuJHegWyd GK2qJEShmjgnOCFfaX7qKM HbJ6z0IiXy EoK3DPmbN3NmeuQ0RDYizW BjZWKsaIHYkW4jwlkii6wg vcaoBeBcLIRoWCy9CBv7HF FsaWduOiBs IMC8JbO9FMQ5qQChyY7tpB udwuwibF9sXir+NRg7p3ci gCXmXN8quQC1GX23ZK41nG Irz8R4uRY7 B9ElZLVwlgfmtshqzXX3NQ KoYVPihA04Df7suWqzTn8y EBRxCMT4RPSdqRHxI2PocK 9yOiAjMDAw XPTyD3NkqHAdJHdfP072UN wdPmJ7WSCvbmCxO2WhHZTx aZfyOlQ9z7V3Nz4MTW23ZN 71QA79yMRs i1V2gWS1W3NjWMBymomzkx krqTI9NBGzWKFevL41Nl3u yKxzEz2kJXLcRRS3JOUjuQ OfS9DqhG2y AeBeYLGjYQPuL6NvqNFrNW wdK004ARxlTvD1LJViquGs Q9QsNEPhcWuoRzP1j6Y3Px 4JXc91VK54 QM22nLGvy1A2cWA6J3TrDU KdjuijbpatfXA0YJAoQAUd mY49Cx6rpDnmXd5mGQSdJE Y1CTGwxEXp K8TuvZ4rIaHcHMYzTBPuL4 RncIKxXJuaY201YSgkOxJ5 ACQopsVpQ8MrNWEauCvuNx R3q7D2Jx6C WGmhpyq5J0UeMtcraIN+PC 79PMZlHL10dXVorHXmh6ji hWo2LiUnXFFvFMJ3wSxsKR ena7HwRZYl Y29 (more content not included)... Normal [facility] .Auto Diff 03-21-2023 Auto [place] % 10 % Normal -12 [facility] Comment on above: Performed By: #### 7 400800, [id number], 0773107, 56925099, 3007298013, 2496607687, 5213599662 ####[facility] (DEFAULT)[address] [place] [address] 58064 Baso Abs# 0.1 x10 Normal 0.0-0.2 [facility] Comment on above: Performed By: #### 7 898493, 0130424939, 5927650, 09860526, 6508084392, 7166904241, 7907862787 ####[facility] (DEFAULT)[address] [place] [address] 38830 Basophils/100 WBC (Bld) 0.9 % Normal 0.2-2.0 [facility] Comment on above: Performed By: #### 7 934250, 9121051277, 5391745, 82536082, 5747680376, 8803666247, 1562206987 ####[facility] (DEFAULT)[address] [place] [address] 43626 Eos Abs# 0.0 x10 Normal 0.0-0.4 [facility] Comment on above: Performed By: #### 7 729506, 8262120396, 8842311, 68641526, 2467315602, 4856666469, 6268959326 ####[facility] (DEFAULT)[address] [place] [address] 48288 Eosinophils/100 WBC (Bld) 0.4 % Low 0.9-4.0 [facility] Comment on above: Performed By: #### 7 526588, 3469796549, 5015654, 64423151, 4891580737, 4007758506, 2313631106 ####[facility] (DEFAULT)[address] [place] [address] 42894 Lymph Abs# 1.8 x10 Normal 1.3-2.9 [facility] Comment on above: Performed By: #### 7 834300, 4001315280, 8511327, 36925140, 4106273832, 5148588287, 3489441674 ####[facility] (DEFAULT)[address] [place] [address] 01397 Lymphocytes/100 WBC (Bld) 27 % Normal 14-48 [facility] Comment on above: Performed By: #### 7 419045, 9815903752, 8219113, 96175709, 1949385728, 8475035363, 0056440149 ####[facility] (DEFAULT)[address] [place] [address] 09778 [place] Abs# 0.6 x10 Normal 0.0-0.8 [facility] Comment on above: Performed By: #### 7 161894, 4343991552, 4597626, 33755018, 3675675132, 1697550238, 6522690107 ####[facility] (DEFAULT)[address] [place] [address] Neut Abs# 4.0 x10 Normal 1.5-9.2 [facility] Comment on above: Performed By: #### 7 839744, 8555470210, 2292054, 09725156, 7232361793, 4328304443, 0359269880 ####[facility] (DEFAULT)[address] [place] [address] Neutrophils/100 WBC (Bld) 61 % Normal 44-88 [facility] Comment on above: Performed By: #### 7 222754, 9322484073, 9060352, 93104505, 1363222343, 7206708920, 6629237025 ####[facility] (DEFAULT)[address] [place] [address] ABORhon 03-21-2023 ABO and Rh group Nom (Bld) Hx Check: Found Anti-A: 4+ Anti-B: 0 Anti-D: 4+ DCon: NT A1: 0 B: 4+ ABORh Interp: A POS Invalid Interpretation Code [facility] Comment on above: Performed By: #### 1 [id number], [id number] ####[facility] (DEFAULT)[address] [place] [address] CBC w/ Auto Diffon 3 Erythrocyte distribution width (RBC) [Ratio] 13.4 % Normal 11.5-15.0 [facility] Comment on above: Performed By: #### 7 748092, 7737903777, 6862215, 78507299, 9115727943, 6889145514, 8526842205 ####[facility] (DEFAULT)[address] [place] [address] Hematocrit (Bld) [Volume fraction] 39.9 % Normal 33.7-40.4 [facility] Comment on above: Performed By: #### 7 296936, 7370002227, 3516940, 12688010, 8253554874, 4502024932, 4739354539 ####[facility] (DEFAULT)[address] [place] [address] Hemoglobin (Bld) [Mass/Vol] 13.8 g/dL Normal 11.3-15.9 [facility] Comment on above: Performed By: #### 7 495115, 0655672757, 0518331, 66389766, 8690026523, 9834581978, 4246984585 ####[facility] (DEFAULT)[address] [place] [address] Man Diff? Auto Invalid Interpretation Code [facility] Comment on above: Performed By: #### 7 923579, 5590512327, 0071972, 30271113, 6048757684, 3276760065, 8709213907 ####[facility] (DEFAULT)[address] [place] [address] MCH (RBC) [Entitic mass] 30 pg Normal 24-34 [facility] Comment on above: Performed By: #### 7 248974, 1029832057, 3283137, 49782138, 2823012327, 2944061882, 7562131714 ####[facility] (DEFAULT)[address] [place] [address] MCHC (RBC) [Mass/Vol] 34 g/dL Normal 26-37 [facility] Comment on above: Performed By: #### 7 605717, 6570415628, 9337569, 51255278, 4387918992, 9995591784, 1784208899 ####[facility] (DEFAULT)[address] [place] [address] 08097 MCV (RBC) [Entitic vol] 86 fL Normal 81-100 [facility] Comment on above: Performed By: #### 7 236542, 4574190044, 2992513, 14482596, 6715293502, 9344899989, 4013710292 ####[facility] (DEFAULT)[address] [place] [address] 22793 Platelet 245 x10 Normal 138-427 [facility] Comment on above: Performed By: #### 7 156891, 9879494627, 6998215, 02400093, 8951187362, 2187503464, 8929841369 ####[facility] (DEFAULT)[address] [place] [address] 37747 Platelet mean volume (Bld) [Entitic vol] 7.1 fL Normal 6.3-10.2 [facility] Comment on above: Performed By: #### 7 583943, 9119256029, 4962863, 69882852, 0769645695, 6376003335, 8429207199 ####[facility] (DEFAULT)[address] [place] [address] RBC 4.66 x10 Normal 3.70-5.30 [facility] Comment on above: Performed By: #### 7 747654, 7655840753, 6816025, 47939129, 6796488031, 3628740746, 9640684951 ####[facility] (DEFAULT)[address] [place] [address] WBC 6.5 x10 Normal 3.5-10.5 [facility] Comment on above: Performed By: #### 7 087300, 6315070525, 4550203, 78620381, 3731605543, 5867603929, 2266982536 ####[facility] (DEFAULT)[address] [place] [address] 86438 CMP Standardon 03-21-2023 eGFR Non AA >60 Invalid Interpretation Code [facility] Comment on above: Performed By: #### 7 668897, 7408078733, 6449966, 46493768, 8290265066, 1007321923, 0223640564 ####[facility] (DEFAULT)[address] [place] [address] 75553 eGFR AA >60 Invalid Interpretation Code [facility] Comment on above: Performed By: #### 7 302018, 4130389217, 0753864, 86254492, 8844177146, 3706260922, 2952216752 ####[facility] (DEFAULT)[address] [place] [address] 96534 Albumin [Mass/Vol] 4.3 g/dL Normal 3.5-5.[address] [facility] Comment on above: Performed By: #### 7 848874, 2499220239, 3152411, 44245803, 5803274575, 4417302325, 9183784929 ####[facility] (DEFAULT)[address] [place] [address] 80240 Albumin/Globulin [Mass ratio] 1.2 {ratio} Low 1.4-2.6 [facility] Comment on above: Performed By: #### 7 219042, 5998054597, 5113120, 81200352, 8072724226, 8641706111, 9520548136 ####[facility] (DEFAULT)[address] [place] [address] 40989 Alk Phos 43 IU/L Normal 32-91 [facility] Comment on above: Performed By: #### 7 801301, 2532249116, 2153670, 30207679, 8797644975, 6311620079, 7107937251 ####[facility] (DEFAULT)[address] [place] [address] 34621 ALT [Catalytic activity/Vol] 23.0 U/L Normal 14.0-54.0 [facility] Comment on above: Performed By: #### 7 182660, 5691314133, 8966381, 31323407, 8206988827, 8920687740, 3741194629 ####[facility] (DEFAULT)[address] [place] [address] 66689 Anion gap [Moles/Vol] 9.7 mmol/L Normal 5.0-19.0 [facility] Comment on above: Performed By: #### 7 669022, 4874346768, 1159335, 20896668, 2057178484, 6245064609, 8076457786 ####[facility] (DEFAULT)[address] [place] [address] 93483 AST [Catalytic activity/Vol] 23 U/L Normal 15-41 [facility] Comment on above: Performed By: #### 7 818306, 1304661778, 4100641, 51516439, 6113692571, 7421633631, 1089894902 ####[facility] (DEFAULT)[address] [place] [address] 06486 Bili Total 0.8 mg/dL Normal 0.3-1.2 [facility] Comment on above: Performed By: #### 7 650642, 1492439988, 7353784, 26199445, 2986695821, 9709782955, 8494046965 ####[facility] (DEFAULT)[address] [place] [address] 06019 Calcium [Mass/Vol] 8.8 mg/dL Low 8.9-10.[address] [facility] Comment on above: Performed By: #### 7 696540, 4152845507, 3153621, 30175615, 0167449741, 3682510264, 2708828156 ####[facility] (DEFAULT)[address] [place] [address] 99993 Chloride [Moles/Vol] 104 mmol/L Normal 101-111 [facility] Comment on above: Performed By: #### 7 268135, 4169434905, 9099838, 26488406, 0446951778, 3119684126, 9691750486 ####[facility] (DEFAULT)[address] [place] [address] 55376 CO2 [Moles/Vol] 22 mmol/L Normal 21-32 [facility] Comment on above: Performed By: #### 7 102311, 3623959446, 7101268, 14714329, 1093183185, 1427747262, 8683761522 ####[facility] (DEFAULT)[address] [place] [address] 16073 Creatinine [Mass/Vol] 0.45 mg/dL Low 0.60-1.30 [facility] Comment on above: Performed By: #### 7 315762, 8820465118, 6140472, 63524711, 1591069795, 1859819197, 5496026913 ####[facility] (DEFAULT)[address] [place] [address] 33153 Globulin (S) [Mass/Vol] 3.5 g/dL Normal 1.5-4.3 [facility] Comment on above: Performed By: #### 7 574485, 4058899585, 1541834, 61698812, 3988925508, 2111887235, 5767825731 ####[facility] (DEFAULT)[address] [place] [address] 61058 Glucose [Mass/Vol] 84.0 mg/dL Normal 74.0-118.[address] [facility] Comment on above: Performed By: #### 7 098318, 0594814547, 0095379, 86934496, 6959023893, 2632339989, 5964531275 ####[facility] (DEFAULT)[address] [place] [address] 96757 Osmolality 262 mOsm/L Invalid Interpretation Code [facility] Comment on above: Performed By: #### 7 914058, 6066483879, 3747721, 59806639, 3146492739, 3270141169, 0763427148 ####[facility] (DEFAULT)[address] [place] [address] 99247 Potassium [Moles/Vol] 3.7 mmol/L Normal 3.6-5.1 [facility] Comment on above: Performed By: #### 7 113139, 4700778385, 2047957, 68664314, 5546947077, 7670919459, 6022700816 ####[facility] (DEFAULT)[address] [place] [address] 08574 Protein [Mass/Vol] 7.8 g/dL Normal 6.5-8.[address] [facility] Comment on above: Performed By: #### 7 236440, 3822124186, 4624959, 13594965, 4786076465, 4117803792, 7175738615 ####[facility] (DEFAULT)[address] [place] [address] 59824 Sodium [Moles/Vol] 132.0 mmol/L Low 136.0-144.0 [facility] Comment on above: Performed By: #### 7 321007, 6123520973, 4897666, 57822298, 5849235800, 8427552482, 4122229834 ####[facility] (DEFAULT)[address] [place] [address] 80566 Urea nitrogen [Mass/Vol] 7 mg/dL Low 8-26 [facility] Comment on above: Performed By: #### 7 696593, 5775249893, 1215189, 47626792, 8046563753, 6687928000, 9165334147 ####[facility] (DEFAULT)[address] [place] [address] Urea nitrogen/Creatinine [Mass ratio] 15.5 mg/mg Normal 4.6-16.2 [facility] Comment on above: Performed By: #### 7 962778, 0575872580, 3704885, 62551149, 4805678439, 9925346521, 9946886557 ####[facility] (DEFAULT)[address] [place] [address] 94146 ED Clinical Summaryon 2022 ED Clinical Summary [facility] - Emergency Department [address] [place] [address] ED Clinical Summary PERSON INFORMATION Name: BETTY RAMIREZ Age: 27 Years Sex: FEMALE : 1995 MRN: Acct#: Visit Reason: Abdominal pain - ; Nausea; NAUSEA, ABD PAIN, 7 WEEKS Arrival: 03/21/2023 12:26:18 Discharge: 03/21/2023 17:51:00 LOS: 000 05:25 Check In: 03/21/2023 12:26:18 Checkout:03/21/2023 17:51:00 Address: [address] [place] [address] PCP: Caden Lauren MD PROVIDER INFORMATION Provider [...] EDUCATION INFORMATION Instructions: Nausea and Vomiting, Adult, [id number]; Warning Signs During Follow-Up: With: Address: When: Caden Lauren MD [facility] [address] [facility] [facility] [address] [place] [address] Within 3 to 5 days DIAGNOSIS: 1:Abdominal with intrauterine ; 2:Nausea and vomiting in Patient Understands: Yes - Patient/family/caregiv er verbalizes understanding of instructions given Comment: [facility] ED Note-Nursingon 03-21-2023 ED Note-Nursing Patient arrives to [facility] ED via private vehicle. Ambulated with a steady gait to ED room 8. Alert and oriented X4. C/O nausea, vomiting, and mid-left abdominal pain. Patient reports she believes she is approximately 7 week . Reports experiencing cramping and spotting approximately 1 weeks ago. History of preeclampsia. [address] [facility] ED Patient Summaryon 023 ED Patient Summary [facility] - Emergency Department [address] [place] [address] PATIENT DISCHARGE INSTRUCTIONS Patient Information Name: BETTY RAMIREZ Age: 27 Years Date of : 1995 Reason For Visit: Abdominal pain - ; Nausea; NAUSEA, ABD PAIN, 7 WEEKS Arrival Time: 03/21/2023 12:26:18 Primary Care Physician: Caden Lauren MD Attending Physician: Armando Nieto DO Comment: Visit Diagnosis: Diagnoses This Visit Abdominal pain - ([id number]) Abdominal with intrauterine (O00.01) Nausea ([id number] g) Nausea and vomiting in (O21.9) The Pharmacy at [facility] is open Thursday through Thursday from 9A [...] contact the [facility] [place] 02/02 Crisis Hotline -Text 4HZSL to 843947. If you received any narcotics, sedation, or [...] documents With: Address: When: Caden Lauren MD [facility] [address] [address] [place] [address] Within 3 to 5 days Medication Information: The exam and treatment you received today in the [facility] Emergency Department were for an urgent problem and are not intended as complete care. It is important for you to follow up with a doctor, nurse practitioner, or physician?s oceanographer assistant for ongoing care. If your symptoms [...] so we can reach you if necessary. [facility] Emergency Department has provided you with a complete list of medications post discharge. Please inform your nursing administrator/provider of your visit and for further instruction on these medications. Any specific questions regarding your chronic medications and dosages should be discussed with your primary care physician(s) and/or pharmacist. New Medications [facility] [id number], [address] [place], [place] [id number], [phone] ondansetron (ondansetron 4 mg oral tablet) 1 [...] ? Have cracked (more content not included)... [facility] 03-21-2023 Tube Collected Yes Invalid Interpretation Code [facility] Comment on above: Performed By: #### 7 982483, [id number], 4958126, 37333072, 1228161289, 6566995031, 1564470396 #### [facility] (DEFAULT) [address] [place] [address] Performed By: #### 7 911105, 2824680269, 8369124, 23364369, 0960779311, 4374678113, 9981956053 ####[facility] (DEFAULT)[address] [place] [address] 89194 RhIG.on 03-21-2023 RhIG. No. Vials RhI RhIG Candidate?: No Date to Give: [id number] RhIG Status: NA [facility] Comment on above: Performed By: #### 1 [id number], [id number] ####[facility] (DEFAULT)[address] [place] [address] UA w Culture if Ind Standard on 03-21-[address] [facility] Comment on above: Performed By: #### 1 [id number] ####[facility] (DEFAULT)[address] [place] [address] Color (U) Yellow [facility] Comment on above: Performed By: #### 1 [id number] ####[facility] (DEFAULT)[address] [place] [address] Culture? Not Indicated Invalid Interpretation Code [facility] Comment on above: Result Comment: Resu lt created by rule GL_MAGR_ADD_UA_CULT1 Performed By: #### 1 [id number] ####[facility] (DEFAULT)[address] [place] [address] Glucose (U) [Mass/Vol] Negative [facility] Comment on above: Performed By: #### 1 [id number] ####[facility] (DEFAULT)[address] [place] [address] 60915 Ketones Ql (U) Negative [facility] Comment on above: Performed By: #### 1 [id number] ####[facility] (DEFAULT)[address] [place] [address] 49625 Micro? Not Indicated Invalid Interpretation Code [facility] Comment on above: Result Comment: Resu lt created by rule GL_MAGR_ADD_UA_MICRO Performed By: #### 1 [id number] ####[facility] (DEFAULT)[address] [place] [address] [facility] Comment on above: Performed By: #### 1 [id number] ####[facility] (DEFAULT)[address] [place] [address] 63206 UA Blood Negative Normal [facility] Comment on above: Performed By: #### 1 [id number] ####[facility] (DEFAULT)[address] [place] [address] 99008 UA Clarity CLEAR Normal CLEAR [facility] Comment on above: Performed By: #### 1 [id number] ####[facility] (DEFAULT)[address] [place] [address] UA Leuk Est Negative Normal NEGATIVE [facility] Comment on above: Performed By: #### 1 [id number] ####[facility] (DEFAULT)[address] [place] [address] 74863 UA Nitrite Negative Normal NEGATIVE [facility] Comment on above: Performed By: #### 1 [id number] ####[facility] (DEFAULT)[address] [place] [address] UA pH 6.5 Normal 5-8 [facility] Comment on above: Performed By: #### 1 [id number] ####[facility] (DEFAULT)[address] [place] [address] UA Protein Negative Normal [facility] Comment on above: Performed By: #### 1 [id number] ####[facility] (DEFAULT)[address] [place] [address] UA Spec Grav <=1.005 Normal 1.001-1.035 [facility] Comment on above: Performed By: #### 1 [id number] ####[facility] (DEFAULT)[address] [place] [address] UA Urobilinogen 0.2 mg/dL Normal 0.2-1.0 [facility] Comment on above: Performed By: #### 1 [id number] ####[facility] (DEFAULT)[address] [place] [address] Urine Source Clean Catch Normal [facility] Comment on above: Performed By: #### 1 [id number] ####[facility] (DEFAULT)[address] [place] [address] US 1st Trimesteron 03-21-2023 US 1st Trimester [...] Lefty Parker MD 03/22/23 10:43 a Technologist: RATHUR [facility] Transvaginalon 03-21-2023 Transvaginal CLINICAL HISTORY: Left [...] MD 03/22/23 10:43 a Technologist: ARTHUR Normal [facility] hCG Quantitativeon 3 hCG Quantitative 231477.0 mIU/mL High 0.0-0.6 [facility] Comment on above: Result Comment: Post -Menopausal Reference Range is: 0.1-11.6 mIU/mL Performed By: #### 7 [id number], [id number], [id number] ####[facility] (DEFAULT)[address] [place] [address] CBC AUTO DIFFon 04-12-2020 Basophils (Bld) [#/Vol] 0.0 103/ul Normal 0.0-0.1 [facility] Comment on above: Performed By: #### T NS #### [facility] [address] [place] [address] Mikal Roselyn Basophils/100 WBC (Bld) 0.4 % Normal 0.2-2.0 [facility] Comment on above: Performed By: #### T NS #### [facility] [address], [place] [address] Mikal Roselyn Eosinophils (Bld) [#/Vol] 0.1 103/ul Normal 0.0-0.7 [facility] Comment on above: Performed By: #### T NS #### [facility] [address] [place], [place] [address] Mikal Roselyn Eosinophils/100 WBC (Bld) 0.7 % Critically low 0.9-7.0 [facility] Comment on above: Performed By: #### T NS #### [facility] [address] [place] [address] Mikal Dempsey Erythrocyte distribution width (RBC) [Ratio] 13.4 % Normal 11.0-15.0 [facility] Comment on above: Performed By: #### T NS #### [facility] [address] [place] [address] Mikal Roselyn Hematocrit (Bld) [Volume fraction] 34.1 % Critically low 36.0-48.0 [facility] Comment on above: Performed By: #### T NS #### [facility] [address] [place] [address] Mikal Roselyn Hemoglobin (Bld) [Mass/Vol] 10.9 g/dL Critically low 12.0-16.0 [facility] Comment on above: Performed By: #### T NS #### [facility] [address] [place] [address] Mikal Roselyn IG # 0.05 10e3/ul Critically high 0.00-0.[address] [facility] Comment on above: Performed By: #### T NS #### [facility] [address] [place] [address] Mikalrena Dempsey IG % 0.5 % Normal 0.0-0.5 [facility] Comment on above: Performed By: #### T NS #### [facility] [address] [place] [address] Mikal Roselyn Lymphocytes (Bld) [#/Vol] 2.4 103/ul Normal 1.2-3.8 [facility] Comment on above: Performed By: #### T NS #### [facility] [address] [place] [address] Mikal Roselyn Lymphocytes/100 WBC (Bld) 22.5 % Normal 20.5-60.0 [facility] Comment on above: Performed By: #### T NS #### [facility] [address] [place] [address] Mikal Roselyn MANUAL DIFF REQ NO Normal [facility] Comment on above: Performed By: #### T NS #### [facility] [address] [id number] Mikal Dempsey MCH (RBC) [Entitic mass] 27.7 pg Normal 26.7-34.0 [facility] Comment on above: Performed By: #### T NS #### [facility] [address] [id number] Mkialrena Dempsey MCHC (RBC) [Mass/Vol] 32.0 g/dL Normal 29.9-35.2 [facility] Comment on above: Performed By: #### T NS #### [facility] [address] [place], [place] [id number] Mikalrena Dempsey MCV (RBC) [Entitic vol] 86.5 fL Normal 81.0-99.0 [facility] Comment on above: Performed By: #### T NS #### [facility] [address] [place] [address] Mikal Roselyn Monocytes (Bld) [#/Vol] 1.4 103/ul Critically high 0.3-0.8 [facility] Comment on above: Performed By: #### T NS #### [facility] [address] [place], [place] [id number] Mikal Dempsey Monocytes/100 WBC (Bld) 12.4 % Critically high 1.7-12.0 [facility] Comment on above: Performed By: #### T NS #### [facility] [address] [place], [place] [id number] Mikal Roselyn Neutrophils (Bld) [#/Vol] 6.9 103/ul Critically high 1.4-6.5 The [facility] Comment on above: Performed By: #### T NS #### [facility] [address] [place], [place] [id number] Mikal Roselyn Neutrophils/100 WBC (Bld) 63.5 % Normal 43.0-75.0 The [facility] Comment on above: Performed By: #### T NS #### [facility] [address] [place], [place] [id number] Mikal Roselyn Platelet mean volume (Bld) [Entitic vol] 9.9 fL Normal 9.5-13.5 [facility] Comment on above: Performed By: #### T NS #### [facility] [address] [place], [place] [id number] Mikal Roselyn Platelets (Bld) [#/Vol] 194 103/ul Normal 150-450 The [facility] Comment on above: Performed By: #### T NS #### [facility] [address] [place], [place] [address] Mikal Roselyn RBC (Bld) [#/Vol] 3.94 106/ul Critically low 4.20-5.40 Th e [facility] Comment on above: Performed By: #### T NS #### [facility] [address] [place], [place] [id number] Mikal Roselyn WBC (Bld) [#/Vol] 10.9 103/ul Normal 4.0-11.0 [facility] Comment on above: Performed By: #### T NS #### [facility] [address] [place], [place] [address] Mikal Roselyn CBC AUTO DIFFon 04-10-2020 Basophils (Bld) [#/Vol] 0.0 103/ul Normal 0.0-0.1 [facility] Comment on above: Performed By: #### A 1C #### [facility] [address] [place], [place] [address] Mikal Roselyn Basophils/100 WBC (Bld) 0.2 % Normal 0.2-2.0 The [facility] Comment on above: Performed By: #### A 1C #### [facility] [address] [place], [place] [id number] Mikal Roselyn Eosinophils (Bld) [#/Vol] 0.0 103/ul Normal 0.0-0.7 [facility] Comment on above: Performed By: #### A 1C #### [facility] [address] [place], [place] [address] Mikal Roselyn Eosinophils/100 WBC (Bld) 0.2 % Critically low 0.9-7.0 The [facility] Comment on above: Performed By: #### A 1C #### [facility] [address] [id number] Mikal Roselyn Erythrocyte distribution width (RBC) [Ratio] 13.3 % Normal 11.0-15.0 [facility] Comment on above: Performed By: #### A 1C #### [facility] [address] [id number] Mikal Roselyn Hematocrit (Bld) [Volume fraction] 34.8 % Critically low 36.0-48.0 [facility] Comment on above: Performed By: #### A 1C #### [facility] [address] [id number] Mikal Roselyn Hemoglobin (Bld) [Mass/Vol] 11.4 g/dL Critically low 12.0-16.0 [facility] Comment on above: Performed By: #### A 1C #### [facility] [address] [place], [place] [address] Mikal Roselyn IG # 0.04 10e3/ul Critically high 0.00-0.[address] [facility] Comment on above: Performed By: #### A 1C #### [facility] [address] [place], [place] [address] Mikal Roselyn IG % 0.5 % Normal 0.0-0.5 [facility] Comment on above: Performed By: #### A 1C #### [facility] [address] [place], [place] [address] Mikal Roselyn Lymphocytes (Bld) [#/Vol] 1.4 103/ul Normal 1.2-3.8 [facility] Comment on above: Performed By: #### A 1C #### [facility] [address] [place], [place] [address] Mikal Roselyn Lymphocytes/100 WBC (Bld) 16.3 % Critically low 20.5-60.0 [facility] Comment on above: Performed By: #### A 1C #### [facility] [address] [place], [place] [address] Mikal Roselyn MANUAL DIFF REQ NO Normal [facility] Comment on above: Performed By: #### A 1C #### [facility] [address] [id number] Mikal Dempsey MCH (RBC) [Entitic mass] 27.7 pg Normal 26.7-34.0 The [facility] Comment on above: Performed By: #### A 1C #### [facility] [address] [place] [address] Mikal Dempsey MCHC (RBC) [Mass/Vol] 32.8 g/dL Normal 29.9-35.2 The [facility] Comment on above: Performed By: #### A 1C #### [facility] [address] [place] [address] Mikalrena Dempsey MCV (RBC) [Entitic vol] 84.5 fL Normal 81.0-99.0 The [facility] Comment on above: Performed By: #### A 1C #### [facility] [address] [place] [address] Mikal Roselyn Monocytes (Bld) [#/Vol] 1.1 103/ul Critically high 0.3-0.8 The [facility] Comment on above: Performed By: #### A 1C #### [facility] [address] [place] [address] Mikal Roselyn Monocytes/100 WBC (Bld) 12.6 % Critically high 1.7-12.0 The [facility] Comment on above: Performed By: #### A 1C #### [facility] [address] [place] [address] Mikal Roselyn Neutrophils (Bld) [#/Vol] 6.1 103/ul Normal 1.4-6.5 The [facility] Comment on above: Performed By: #### A 1C #### [facility] [address] [place] [address] Mikal Roselyn Neutrophils/100 WBC (Bld) 70.2 % Normal 43.0-75.0 The [facility] Comment on above: Performed By: #### A 1C #### [facility] [address] [place] [address] Mikalrena Hensleyen Platelet mean volume (Bld) [Entitic vol] 10.3 fL Normal 9.5-13.5 The [facility] Comment on above: Performed By: #### A 1C #### [facility] [address] [id number] Mikalrena Dempsey Platelets (Bld) [#/Vol] 232 103/ul Normal 150-450 The [facility] Comment on above: Performed By: #### A 1C #### [facility] [address] [place] [address] Mikalrena Dempsey RBC (Bld) [#/Vol] 4.12 106/ul Critically low 4.20-5.40 [facility] Comment on above: Performed By: #### A 1C #### [facility] [address] [place] [address] Mikalrena Dempsey WBC (Bld) [#/Vol] 8.7 103/ul Normal 4.0-11.[address] [facility] Comment on above: Performed By: #### A 1C #### [facility] [address] [place] [address] Mikal Roselyn DRUG SCREEN RAPID (URINE)on 04-10-2020 AMP Negative Normal NEGATIVE [facility] Comment on above: Performed By: #### A 1C #### [facility] [address] [place] [address] Mikal Roselyn BAR Negative Normal NEGATIVE [facility] Comment on above: Performed By: #### A 1C #### [facility] [address] [place] [address] Mikal Roselyn BUP Negative Normal NEGATIVE [facility] Comment on above: Performed By: #### A 1C #### [facility] [address] [place] [address] Mikal Roselyn BZO Negative Normal NEGATIVE [facility] Comment on above: Performed By: #### A 1C #### [facility] [address] [place] [address] Mikal Roselyn MADDY Negative Normal NEGATIVE [facility] Comment on above: Performed By: #### A 1C #### [facility] [address] [place] [address] Mikal Roselyn CUT-OFFS SEE BELOW Normal The [facility] Comment on above: Result Comment: [...] ng/mL Performed By: #### A 1C #### [facility] [address] [place] [address] DRUG CUT HEADER DRUG CLASS TEST SYST EM CUT-OFF CONCENTRATIONS ARE FOLLOWS: Normal The [facility] Comment on above: Performed By: #### A 1C #### [facility] [address] [place] [address] Mikal Roselyn mAMP Negative Normal NEGATIVE [facility] Comment on above: Performed By: #### A 1C #### [facility] [address] [place] [address] Mikal Roselyn MTD Negative Normal NEGATIVE [facility] Comment on above: Performed By: #### A 1C #### [facility] [address] [place] [address] [facility] Normal NEGATIVE [facility] Comment on above: Performed By: #### A 1C #### [facility] [address] [place] [address] Mikal Roselyn OXY Negative Normal NEGATIVE [facility] Comment on above: Performed By: #### A 1C #### [facility] [address] [place], [place] [address] PCP Negative Normal NEGATIVE [facility] Comment on above: Performed By: #### A 1C #### [facility] [address] [place] [address] PPX Negative Normal NEGATIVE [facility] Comment on above: Performed By: #### A 1C #### [facility] [address] [place] [address] Mikal Dempsey TCA Negative Normal NEGATIVE [facility] Comment on above: Performed By: #### A 1C #### [facility] [address] [place] [address] Mikal Dempsey THC Negative Normal NEGATIVE [facility] Comment on above: Performed By: #### A 1C #### [facility] [address] [place] [address] Mikal Roselyn TYPE AND SCREENon 04-10-2020 TYPE AND SCREEN Negative Normal [facility] Comment on above: Performed By: #### A 1C #### [facility] [address] [place] [address] Mikal Dempsey COVID-19 PCRon 04-06-2020 SARS-CoV-2, MAYCO Not Detected Normal Not Detected [facility] Comment on above: Result Comment: This nucleic acid amplification test was developed and its performance characteristics determined by [employer]. Nucleic acid amplification tests include PCR and [...] assay. Performed By: #### A 1C #### [facility] [address] [place] [address] Mikal Dempsey DRUG SCREEN RAPID (URINE)on 04-05-2020 AMP Negative Normal NEGATIVE [facility] Comment on above: Performed By: #### A 1C #### [facility] [address] [place] [address] Mikal Roselyn BAR Negative Normal NEGATIVE The [facility] Comment on above: Performed By: #### A 1C #### [facility] [address] [place] [address] Mikal Roselyn BUP Negative Normal NEGATIVE The [facility] Comment on above: Performed By: #### A 1C #### [facility] [address] [place] [address] Mikal Roselyn BZO Negative Normal NEGATIVE The [facility] Comment on above: Performed By: #### A 1C #### [facility] [address] [place] [address] Mikal Roselyn MADDY Negative Normal NEGATIVE The [facility] Comment on above: Performed By: #### A 1C #### [facility] [address] [place] [address] Mikal Roselyn CUT-OFFS SEE BELOW Normal [facility] Comment on above: Result Comment: AMP (Amphetamine): [...] ng/mL Performed By: #### A 1C #### [facility] [address] [place] [address] Mikal Roselyn DRUG CUT HEADER DRUG CLASS TEST SYST EM CUT-OFF CONCENTRATIONS ARE FOLLOWS: Normal The [facility] Comment on above: Performed By: #### A 1C #### [facility] [address] [place] [address] Mikal Roselyn mAMP Negative Normal NEGATIVE The [facility] Comment on above: Performed By: #### A 1C #### [facility] [address] [place] [address] Mikal Roselyn MTD Negative Normal NEGATIVE The [facility] Comment on above: Performed By: #### A 1C #### [facility] [address] [place] [address] Mikal Dempsey OPI Negative Normal NEGATIVE The [facility] Comment on above: Performed By: #### A 1C #### [facility] [address] [place] [address] Mikal Roselyn OXY Negative Normal NEGATIVE The [facility] Comment on above: Performed By: #### A 1C #### [facility] [address] [place] [address] Mikal Dempsey PCP Negative Normal NEGATIVE [facility] Comment on above: Performed By: #### A 1C #### [facility] [address] [place] [address] Mikal Dempsey PPX Negative Normal NEGATIVE [facility] Comment on above: Performed By: #### A 1C #### [facility] [address] [place] [address] Mikal Dempsey TCA Negative Normal NEGATIVE [facility] Comment on above: Performed By: #### A 1C #### [facility] [address] [place] [address] Mikal Dempsey THC Negative Normal NEGATIVE [facility] Comment on above: Performed By: #### A 1C #### [facility] [address] [place] [address] Mikal Dempsey US PREG BIOPHY W NON [...] LEFTY GALE Date: 2020-04-03 13:48 Normal The [facility] US PREG BIOPHY W NON [...] VANCE DING Date: 2020-03-27 13:51 Normal The [facility] CHLAMYDIA/GONOCOCCUS MAYCO ( AB/URINE/PAPon 03-23-2020 Chlamydia trachomatis, MAYCO Negative Normal Negative The [facility] Comment on above: Performed By: #### A 1C #### [facility] [address] [address] Mikal Dempsey Neisseria gonorrhoeae, MAYCO Negative Normal Negative The [facility] Comment on above: Performed By: #### A 1C #### [facility] [address], [place] [address] Mikal Dempsey US PREG BIOPHY W NON [...] by: FARRUKH PARK Date: 2020-03-22 02:34 Normal [facility] GROUP B STREP CULTUREon S. agalactiae Ag Ql (Unsp spec) Culture Observations: Negative for Group B Streptococcus. Normal The [facility] Comment on above: Performed By: #### A 1C #### [facility] [address] [place] [address] Mikal Dempsey PREG GROWTHon 03-12-2020 US PREG [...] LEFTY GALE Date: 2020-03-12 09:32 Normal The [facility] COVID-19 PCRon 02-24-2020 SARS-CoV-2, MAYCO Not Detected Normal Not Detected [facility] Comment on above: Result Comment: This test was developed and its performance characteristics determined by [employer]. This test has not been FDA cleared [...] assay. Performed By: #### P REGQNT #### [facility] [address] [place] [address] Mikal Roselyn CBC AUTO DIFFon 02-18-2020 Basophils (Bld) [#/Vol] 0.0 103/ul Normal 0.0-0.1 [facility] Comment on above: Performed By: #### P REGQNT #### [facility] [address] [place] [address] Mikal Roselyn Basophils/100 WBC (Bld) 0.2 % Normal 0.2-2.0 [facility] Comment on above: Performed By: #### P REGQNT #### [facility] [address] [place] [address] Mikal Roselyn Eosinophils (Bld) [#/Vol] 0.0 103/ul Normal 0.0-0.7 [facility] Comment on above: Performed By: #### P REGQNT #### [facility] [address] [place] [address] Mikal Roselyn Eosinophils/100 WBC (Bld) 0.3 % Critically low 0.9-7.0 [facility] Comment on above: Performed By: #### P REGQNT #### [facility] [address] [place] [address] Mikal Roselyn Erythrocyte distribution width (RBC) [Ratio] 13.0 % Normal 11.0-15.0 [facility] Comment on above: Performed By: #### P REGQNT #### [facility] [address] [place] [address] Mikal Roselyn Hematocrit (Bld) [Volume fraction] 36.3 % Normal 36.0-48.0 [facility] Comment on above: Performed By: #### P REGQNT #### [facility] [address] [place] [address] Mikal Roselyn Hemoglobin (Bld) [Mass/Vol] 11.9 g/dL Critically low 12.0-16.0 [facility] Comment on above: Performed By: #### P REGQNT #### [facility] [address] [place] [address] Mikal Roselyn IG # 0.04 10e3/ul Critically high 0.00-0.[address] [facility] Comment on above: Performed By: #### P REGQNT #### [facility] [address] [place] [address] Mikal Roselyn IG % 0.5 % Normal 0.0-0.5 [facility] Comment on above: Performed By: #### P REGQNT #### [facility] [address] [place] [address] Mikal Roselyn Lymphocytes (Bld) [#/Vol] 1.6 103/ul Normal 1.2-3.8 [facility] Comment on above: Performed By: #### P REGQNT #### [facility] [address] [place] [address] Mikal Roselyn Lymphocytes/100 WBC (Bld) 18.9 % Critically low 20.5-60.0 [facility] Comment on above: Performed By: #### P REGQNT #### [facility] [address] [place] [address] Mikalrena Hensleyen MANUAL DIFF REQ NO Normal [facility] Comment on above: Performed By: #### P REGQNT #### [facility] [address] [place] [address] Mikal Roselyn MCH (RBC) [Entitic mass] 29.5 pg Normal 26.7-34.0 [facility] Comment on above: Performed By: #### P REGQNT #### [facility] [address] [place], [place] [address] Mikal Dempsey MCHC (RBC) [Mass/Vol] 32.8 g/dL Normal 29.9-35.2 [facility] Comment on above: Performed By: #### P REGQNT #### [facility] [address] [place], [place] [address] Mikalrena Dempsey MCV (RBC) [Entitic vol] 90.1 fL Normal 81.0-99.0 [facility] Comment on above: Performed By: #### P REGQNT #### [facility] [address] [place] [address] Mikal Roselyn Monocytes (Bld) [#/Vol] 1.1 103/ul Critically high 0.3-0.8 [facility] Comment on above: Performed By: #### P REGQNT #### [facility] [address] [place] [address] Mikal Roselyn Monocytes/100 WBC (Bld) 12.6 % Critically high 1.7-12.0 [facility] Comment on above: Performed By: #### P REGQNT #### [facility] [address] [place] [address] Mikal Roselyn Neutrophils (Bld) [#/Vol] 5.8 103/ul Normal 1.4-6.5 [facility] Comment on above: Performed By: #### P REGQNT #### [facility] [address] [place] [address] Mikal Roselyn Neutrophils/100 WBC (Bld) 67.5 % Normal 43.0-75.0 [facility] Comment on above: Performed By: #### P REGQNT #### [facility] [address] [place] [address] Mikal Roselyn Platelet mean volume (Bld) [Entitic vol] 9.6 fL Normal 9.5-13.5 [facility] Comment on above: Performed By: #### P REGQNT #### [facility] [address], [place] [address] Mikalrena Dempsey Platelets (Bld) [#/Vol] 204 103/ul Normal 150-450 [facility] Comment on above: Performed By: #### P REGQNT #### [facility] [address] [place], [place] [address] Mikalrena Dempsey RBC (Bld) [#/Vol] 4.03 106/ul Critically low 4.20-5.40 [facility] Comment on above: Performed By: #### P REGQNT #### [facility] [address] [place] [address] Mikalrena Hensleyen WBC (Bld) [#/Vol] 8.6 103/ul Normal 4.0-11.[address] [facility] Comment on above: Performed By: #### P REGQNT #### [facility] [address] [place], [place] [address] Mikalrena Dempsey CULTURE URINEon 02-18-2020 CULTURE URINE Culture Observations : NORMAL GENITAL SIERRA. NO POTENTIAL PATHOGENS SEEN. Normal [facility] Comment on above: Performed By: #### P REGQNT #### [facility] [address] [place], [place] [address] Mikal Roselyn LDHon 02-18-2020 LDH 142 U/L Normal 122-222 [facility] Comment on above: Performed By: #### P REGQNT #### [facility] [address] [place], [place] [address] Mikal Dempsey PROF 14(COMP METB)on 020 Albumin [Mass/Vol] 2.5 g/dL Critically low 3.5-5.0 [facility] Comment on above: Performed By: #### P REGQNT #### [facility] [address] [place], [place] [address] Mikal Roselyn Albumin/Globulin [Mass ratio] 0.7 {ratio} Normal [facility] Comment on above: Performed By: #### P REGQNT #### [facility] [address] [place], [place] [id number] Mikal Roselyn ALP [Catalytic activity/Vol] 107 U/L Normal 38-126 [facility] Comment on above: Performed By: #### P REGQNT #### [facility] [address], [place] [address] Mikal Roselyn ALT [Catalytic activity/Vol] 16 U/L Normal 9-52 [facility] Comment on above: Performed By: #### P REGQNT #### [facility] [address] [place] [id number] Mikal Roselyn Anion gap [Moles/Vol] 12.1 mmol/L Normal [facility] Comment on above: Performed By: #### P REGQNT #### [facility] [address] [place] [address] Mikal Roselyn AST [Catalytic activity/Vol] 10 U/L Critically low 14-36 [facility] Comment on above: Performed By: #### P REGQNT #### [facility] [address] [place] [address] Mikal Roselyn Bilirubin Ql (U) 0.3 mg/dL Normal 0.2-1.3 [facility] Comment on above: Performed By: #### P REGQNT #### [facility] [address] [place] [id number] Mikal Roselyn Calcium [Mass/Vol] 8.6 mg/dL Normal 8.4-10.2 [facility] Comment on above: Performed By: #### P REGQNT #### [facility] [address] [place] [address] Mikal Roselyn Chloride [Moles/Vol] 103 mmol/L Normal 98-107 [facility] Comment on above: Performed By: #### P REGQNT #### [facility] [address] [place], [place] [address] Mikal Roselyn CO2 [Moles/Vol] 24.1 mmol/L Normal 22.0-30.0 [facility] Comment on above: Performed By: #### P REGQNT #### [facility] [address] [place] [address] Mikal Roselyn Creatinine [Mass/Vol] 0.52 mg/dL Normal 0.52-1.04 [facility] Comment on above: Performed By: #### P REGQNT #### [facility] [address] [place], [place] [address] Mikal Roselyn EGFR-AF ENGLISH >60 Normal >=60 [facility] Comment on above: Performed By: #### P REGQNT #### [facility] [address] [place] [id number] Mikal Roselyn EGFR-NON AF ENGLISH >60 Normal >=60 [facility] Comment on above: Performed By: #### P REGQNT #### [facility] [address] [place] [id number] Mikal Roselyn Globulin (S) [Mass/Vol] 3.7 g/dL Normal [facility] Comment on above: Performed By: #### P REGQNT #### [facility] [address] [place] [address] Mikal Roselyn Glucose [Mass/Vol] 75 mg/dL Normal 74-106 [facility] Comment on above: Performed By: #### P REGQNT #### [facility] [address] [address] Mikal Roselyn Potassium [Moles/Vol] 4.2 mmol/L Normal 3.4-5.0 [facility] Comment on above: Performed By: #### P REGQNT #### [facility] [address] [place] [id number] Mikal Roselyn Protein [Mass/Vol] 6.2 g/dL Normal 6.1-8.2 [facility] Comment on above: Performed By: #### P REGQNT #### [facility] [address] [address] Mikal Roselyn Sodium [Moles/Vol] 135 mmol/L Critically low 137-145 [facility] Comment on above: Performed By: #### P REGQNT #### [facility] [address] [id number] Mikal Roselyn Urea nitrogen [Mass/Vol] 3.0 mg/dL Critically low 7.0-17.0 [facility] Comment on above: Performed By: #### P REGQNT #### [facility] [address] [place] [address] Mikal Roselyn Urea nitrogen/Creatinine [Mass ratio] 5.8 mg/mg Normal [facility] Comment on above: Performed By: #### P REGQNT #### [facility] [address] [place] [address] Mikal Roselyn UA (CLEAN/CATCH) BARIATRIC SURGEON/MICRO I F IND.on 02-18-2020 Bilirubin [Mass/Vol] Negative Normal NEGATIVE [facility] Comment on above: Performed By: #### P REGQNT #### [facility] [address] [place] [address] Mikal Roselyn BLOOD Negative Normal NEGATIVE [facility] Comment on above: Performed By: #### P REGQNT #### [facility] [address] [place] [address] Mikal Roselyn Clarity (U) SL CLOUDY Normal [facility] Comment on above: Performed By: #### P REGQNT #### [facility] [address] [place] [address] Mikal Roselyn Color (U) LT. YELLOW Normal YELLOW [facility] Comment on above: Performed By: #### P REGQNT #### [facility] [address] [place] [address] Mikal Roselyn Glucose [Mass/Vol] Negative Normal NEGATIVE [facility] Comment on above: Performed By: #### P REGQNT #### [facility] [address] [place] [address] Mikal Roselyn Ketones Ql (U) Negative Normal NEGATIVE [facility] Comment on above: Performed By: #### P REGQNT #### [facility] [address] [place] [address] Mikal Roselyn Nitrite Ql (U) Negative Normal NEGATIVE [facility] Comment on above: Performed By: #### P REGQNT #### [facility] [address] [place] [address] Mikal Roselyn pH (Bld) 6.5 Normal 5-9 [facility] Comment on above: Performed By: #### P REGQNT #### [facility] [address] [place] [address] Mikal Roselyn Protein [Mass/Vol] Negative Normal [facility] Comment on above: Performed By: #### P REGQNT #### [facility] [address] [place], [place] [id number] Mikal Dempsey SPEC GRAVITY 1.025 Normal 1.005-<=1.025 [facility] Comment on above: Performed By: #### P REGQNT #### [facility] [address] [place] [address] Mikal Roselyn UR MICRO IND INDICATED Normal [facility] Comment on above: Performed By: #### P REGQNT #### [facility] [address] [place], [place] [id number] Mikalrena Dempsey Urobilinogen Qn (U) 1.0 EU/dl Normal [facility] Comment on above: Performed By: #### P REGQNT #### [facility] [address] [place] [address] Mikalrena Dempsey WBC (Bld) [#/Vol] SMALL Normal NEGATIVE [facility] Comment on above: Performed By: #### P REGQNT #### [facility] [address] [place], [place] [id number] Mikalrena Dempsey URIC ACID SERUMon 02-18-2020 Urate [Mass/Vol] 3.1 mg/dL Normal 2.5-6.2 [facility] Comment on above: Performed By: #### P REGQNT #### [facility] [address] [place] [address] Mikal Roselyn URINE MICROSCOPIC ONLYon Bacteria LM.HPF (Urine sed) [#/Area] SMALL Normal NONE SEEN The [facility] Comment on above: Performed By: #### P REGQNT #### [facility] [address] [place] [address] Mikal Roselyn CAST NONE SEEN Normal NONE SEEN The [facility] Comment on above: Performed By: #### P REGQNT #### [facility] [address] [place], [place] [id number] Mikal Roselyn Crystals LM Nom (Urine sed) NONE SEEN Normal NONE SEEN The [facility] Comment on above: Performed By: #### P REGQNT #### [facility] [address] [place] [address] Imkal Roselyn CULTURE INDICATED Normal The [facility] Comment on above: Performed By: #### P REGQNT #### [facility] [address] [place], [place] [id number] Mikal Roselyn Epithelial cells LM.HPF (Urine sed) [#/Area] FEW Normal The [facility] Comment on above: Performed By: #### P REGQNT #### [facility] [address] [place], [place] [address] Mikal Roselyn MUCOUS SMALL Normal NONE SEEN The [facility] Comment on above: Performed By: #### P REGQNT #### [facility] [address] [place] [address] Mikal Roselyn RBC (U) [#/Vol] 0-2 Normal 0-2 [facility] Comment on above: Performed By: #### P REGQNT #### [facility] [address] [place] [address] Mikal Roselyn WBC (Bld) [#/Vol] 5-10 Normal NONE SEEN [facility] Comment on above: Performed By: #### P REGQNT #### [facility] [address] [place], [place] [address] Mikal Roselyn CBC AUTO DIFFon 01-03-2020 Basophils (Bld) [#/Vol] 0.0 103/ul Normal 0.0-0.1 [facility] Comment on above: Performed By: #### C BC #### [facility] [address] [place] [address] Mikal Roselyn Basophils/100 WBC (Bld) 0.4 % Normal 0.2-2.0 [facility] Comment on above: Performed By: #### C BC #### [facility] [address] [place] [address] Mikal Roselyn Eosinophils (Bld) [#/Vol] 0.1 103/ul Normal 0.0-0.7 [facility] Comment on above: Performed By: #### C BC #### [facility] [address] [place], [place] [address] Mikal Roselyn Eosinophils/100 WBC (Bld) 0.7 % Critically low 0.9-7.0 [facility] Comment on above: Performed By: #### C BC #### [facility] [address] [place], [place] [address] Mikal Roselyn Erythrocyte distribution width (RBC) [Ratio] 13.7 % Normal 11.0-15.0 [facility] Comment on above: Performed By: #### C BC #### [facility] [address] [place], [place] [address] Mikal Roselyn Hematocrit (Bld) [Volume fraction] 37.8 % Normal 36.0-48.0 [facility] Comment on above: Performed By: #### C BC #### [facility] [address] [place], [place] [address] Mikal Roselyn Hemoglobin (Bld) [Mass/Vol] 12.8 g/dL Normal 12.0-16.0 [facility] Comment on above: Performed By: #### C BC #### [facility] [address] [place], [place] [address] Mikal Roselyn IG # 0.09 10e3/ul Critically high 0.00-0.[address] [facility] Comment on above: Performed By: #### C BC #### [facility] [address] [place], [place] [address] Mikal Roselyn IG % 1.2 % Critically high 0.0-0.5 [facility] Comment on above: Performed By: #### C BC #### [facility] [address] [place], [place] [address] Mikal Roselyn Lymphocytes (Bld) [#/Vol] 1.6 103/ul Normal 1.2-3.8 The [facility] Comment on above: Performed By: #### C BC #### [facility] [address] [place], [place] [address] Mikal Roselyn Lymphocytes/100 WBC (Bld) 20.6 % Normal 20.5-60.0 [facility] Comment on above: Performed By: #### C BC #### [facility] [address] [place], [place] [address] Mikal Roselyn MANUAL DIFF REQ NO Normal [facility] Comment on above: Performed By: #### C BC #### [facility] [address] [place], [place] [address] Mikal Roselyn MCH (RBC) [Entitic mass] 31.4 pg Normal 26.7-34.0 The [facility] Comment on above: Performed By: #### C BC #### [facility] [address] [place], [place] [address] Mikal Roselyn MCHC (RBC) [Mass/Vol] 33.9 g/dL Normal 29.9-35.2 [facility] Comment on above: Performed By: #### C BC #### [facility] [address] [place] [address] Mikal Roselyn MCV (RBC) [Entitic vol] 92.6 fL Normal 81.0-99.0 [facility] Comment on above: Performed By: #### C BC #### [facility] [address] [place] [address] Mikal Roselyn Monocytes (Bld) [#/Vol] 0.9 103/ul Critically high 0.3-0.8 [facility] Comment on above: Performed By: #### C BC #### [facility] [address] [place] [address] Mikal Roselyn Monocytes/100 WBC (Bld) 12.0 % Normal 1.7-12.0 The [facility] Comment on above: Performed By: #### C BC #### [facility] [address] [place] [address] Mikal Roselyn Neutrophils (Bld) [#/Vol] 4.9 103/ul Normal 1.4-6.5 The [facility] Comment on above: Performed By: #### C BC #### [facility] [address] [place] [address] Mikal Roselyn Neutrophils/100 WBC (Bld) 65.1 % Normal 43.0-75.0 The [facility] Comment on above: Performed By: #### C BC #### [facility] [address] [place], [place] [address] Mikal Dempsey Platelet mean volume (Bld) [Entitic vol] 8.9 fL Critically low 9.5-13.5 [facility] Comment on above: Performed By: #### C BC #### [facility] [address] [place], [place] [address] Mikal Dempsey Platelets (Bld) [#/Vol] 205 103/ul Normal 150-450 [facility] Comment on above: Performed By: #### C BC #### [facility] [address], [place] [address] Mikal Dempsey RBC (Bld) [#/Vol] 4.08 106/ul Critically low 4.20-5.40 Th e [facility] Comment on above: Performed By: #### C BC #### [facility] [address] [place], [place] [address] Mikal Dempsey WBC (Bld) [#/Vol] 7.6 103/ul Normal 4.0-11.[address] [facility] Comment on above: Performed By: #### C BC #### [facility] [address] [place], [place] [address] Mikal Dempsey GLUCOSE - 1HRon 01-03-2020 Glucose [Mass/Vol] 87 mg/dL Normal 74-106 [facility] Comment on above: Performed By: #### C BC #### [facility] [address] [place] [address] Mikal Dempsey US PREG ANATOMY SINGLEon US [...] by: VANCE DING Date: 2019-12-02 11:29 Normal [facility] PAP ACOG PANEL 3: 21 to 29on 10-07-2019 Age Gdln ACOG Testing - Normal [facility] Comment on above: Performed By: #### C BC #### [facility] [address] [place] [address] Mikal Dempsey Chlamydia, Nuc. Acid Amp Negative Normal Negative [facility] Comment on above: Result Comment: Perf ormed at: =G Performed By: #### C BC #### [facility] [address] [place] [id number] Mikal Dempsey DIAGNOSIS: Comment Abnormal [facility] Comment on above: Result Comment: EPIT HELIAL CELL ABNORMALITY. ATYPICAL SQUAMOUS CELLS OF UNDETERMINED SIGNIFICANCE (ASC-US). Performed at: WB Performed By: #### C BC #### [facility] [address] [id number] Mikal Dempsey Electronically signed by: Comment Normal [facility] Comment on above: Result Comment: Aretha Cheng MD, Pathologist Performed at: WB Performed By: #### C BC #### [facility] [address] [id number] Mikal Dempsey Gonococcus, Nuc. Acid Amp Negative Normal Negative [facility] Comment on above: Result Comment: Perf ormed at: =G Performed By: #### C BC #### [facility] [address] [place] [address] Mikal Dempsey HPV Aptima Positive Abnormal Negative [facility] Comment on above: Result Comment: This nucleic acid amplification test detects fourteen high-risk HPV types (16,18,31,33,35,39,45,51,52,56,58,59,66,68) without differentiation. Performed By: #### C BC #### [facility] [address] [place] [address] Mikal Dempsey Methodology: Comment Normal [facility] Comment on above: Result Comment: This liquid based ThinPrep(R) pap test was screened with the use of an image guided system. Performed at: WB Performed By: #### C BC #### [facility] [address] [place] [address] Mikal Dempsey Note: Comment Normal [facility] Comment on above: Result Comment: The Pap smear is a screening test designed to aid in the detection of premalignant and malignant conditions of the uterine cervix. It is not a diagnostic procedure and should not be used as the sole means of detecting cervical cancer. Both false-positive and false-negative reports do occur. . Performed at: WB Performed By: #### C BC #### [facility] [address] [place] [address] Mikal Dempsey Pathologist Provided ICD10 Comment Normal [facility] Comment on above: Result Comment: [id number]. [id number] Performed at: WB Performed By: #### C BC #### [facility] [address] [place] [address] Mikal Dempsey Performed by: Comment Normal [facility] Comment on above: Result Comment: Perry Dial, Senior Partner (ASCP) Performed at: WB Performed By: #### C BC #### [facility] [address] [place] [address] Mikal Dempsey Recommendation: Comment Abnormal [facility] Comment on above: Result Comment: Sugg est follow up as clinically appropriate. Performed at: WB Performed By: #### C BC #### [facility] [address] [address] Mikal Dempsey Reflex Criteria: Comment Normal [facility] Comment on above: Result Comment: See below for HPV testing results. . Performed at: WB Performed By: #### C BC #### [facility] [address] [address] Mikal Dempsey Specimen adequacy: Comment Normal [facility] Comment on above: Result Comment: Sati sfactory for evaluation. No endocervical component is identified. An endocervical component is not commonly seen in the patient. Performed at: WB Performed By: #### C BC #### [facility] [address] [place] [address] Mikal Dempsey . . Normal [facility] Comment on above: Result Comment: Perf ormed at: WB Performed By: #### C BC #### [facility] [address] [place] [address] Mikal Dempsey US PREG TVon 09-15-2019 US [...] IMPRESSION: Single live intrauterine . Normal The [facility] BUNon 09-05-2019 Urea nitrogen [Mass/Vol] 8.0 mg/dL Normal 7.0-17.0 [facility] Comment on above: Performed By: #### D RUGRPD, UAMIC #### [facility] [address] [address] Mikal Dempsey CBC AUTO DIFFon 09-05-2019 Basophils (Bld) [#/Vol] 0.0 103/ul Normal 0.0-0.1 [facility] Comment on above: Performed By: #### D MARLEN WHITEMIC #### [facility] [address] [place] [address] Mikal Roselyn Basophils/100 WBC (Bld) 0.5 % Normal 0.2-2.0 The [facility] Comment on above: Performed By: #### Agustin WHITE UAMIC #### [facility] [address] [place] [address] Mikal Roselyn Eosinophils (Bld) [#/Vol] 0.0 103/ul Normal 0.0-0.7 [facility] Comment on above: Performed By: #### MARLEN HIGGINSMIC #### [facility] [address] [place] [address] Mikal Roselyn Eosinophils/100 WBC (Bld) 0.2 % Critically low 0.9-7.0 The [facility] Comment on above: Performed By: #### Agustin WHITE UAMIC #### [facility] [address] [place] [address] Mikal Roselyn Erythrocyte distribution width (RBC) [Ratio] 12.8 % Normal 11.0-15.0 [facility] Comment on above: Performed By: #### Agustin WHITE UAMIC #### [facility] [address] [place] [address] Mikal Roselyn Hematocrit (Bld) [Volume fraction] 40.0 % Normal 36.0-48.0 [facility] Comment on above: Performed By: #### Agustin WHITE UAMIC #### [facility] [address] [place] [address] Mikal Roselyn Hemoglobin (Bld) [Mass/Vol] 13.7 g/dL Normal 12.0-16.0 [facility] Comment on above: Performed By: #### Agustin WHITE UAMIC #### [facility] [address] [place] [address] Mikal Roselyn IG # 0.01 10e3/ul Normal 0.00-0.03 The [facility] Comment on above: Performed By: #### D CHRISTOPHER UAMIC #### [facility] [address] [place], [place] [address] Mikal Roselyn IG % 0.2 % Normal 0.0-0.5 [facility] Comment on above: Performed By: #### D CHRISTOPHER UAMIC #### [facility] [address] [place] [address] Mikal Roselyn Lymphocytes (Bld) [#/Vol] 1.5 103/ul Normal 1.2-3.8 [facility] Comment on above: Performed By: #### D CHRISTOPHER UAMIC #### [facility] [address] [place] [address] Mikal Roselyn Lymphocytes/100 WBC (Bld) 24.3 % Normal 20.5-60.0 [facility] Comment on above: Performed By: #### Agustin WHITE UAMIC #### [facility] [address] [place], [place] [address] Mikalrena Dempsey MANUAL DIFF REQ NO Normal [facility] Comment on above: Performed By: #### D CHRISTOPHER UAMIC #### [facility] [address] [place], [place] [address] Mikal Roselyn MCH (RBC) [Entitic mass] 29.8 pg Normal 26.7-34.0 [facility] Comment on above: Performed By: #### D CHRISTOPHER UAMIC #### [facility] [address] [place], [place] [address] Mikalrena eDmpsey MCHC (RBC) [Mass/Vol] 34.3 g/dL Normal 29.9-35.2 [facility] Comment on above: Performed By: #### Agustin WHITE UAMIC #### [facility] [address] [place], [place] [address] Mikalrena Dempsey MCV (RBC) [Entitic vol] 87.1 fL Normal 81.0-99.0 [facility] Comment on above: Performed By: #### Agustin WHITE UAMIC #### [facility] [address] [place], [place] [address] Mikal Roselyn Monocytes (Bld) [#/Vol] 0.7 103/ul Normal 0.3-0.8 The [facility] Comment on above: Performed By: #### Agustin WHITE UAMIC #### [facility] [address] [place] [address] Mikal Roselyn Monocytes/100 WBC (Bld) 11.2 % Normal 1.7-12.0 [facility] Comment on above: Performed By: #### Agustin WHITE UAMIC #### [facility] [address] [place] [address] Mikal Roselyn Neutrophils (Bld) [#/Vol] 4.0 103/ul Normal 1.4-6.5 [facility] Comment on above: Performed By: #### Agustin WHITE UAMIC #### [facility] [address] [place] [address] Mikal Roselyn Neutrophils/100 WBC (Bld) 63.6 % Normal 43.0-75.0 [facility] Comment on above: Performed By: #### Agustin WHITE UAMIC #### [facility] [address] [place] [address] Mikal Roselyn Platelet mean volume (Bld) [Entitic vol] 8.9 fL Critically low 9.5-13.5 The [facility] Comment on above: Performed By: #### Agustin WHITE UAMIC #### [facility] [address] [place] [address] Mikal Roselyn Platelets (Bld) [#/Vol] 260 103/ul Normal 150-450 [facility] Comment on above: Performed By: #### Agustin WHITE UAMIC #### [facility] [address] [place] [address] Mikal Roselyn RBC (Bld) [#/Vol] 4.59 106/ul Normal 4.20-5.40 The [facility] Comment on above: Performed By: #### Agustin WHITE UAMIC #### [facility] [address] [place] [address] Mikal Roselyn WBC (Bld) [#/Vol] 6.3 103/ul Normal 4.0-11.0 The [facility] Comment on above: Performed By: #### MARLEN HIGGINSMIC #### [facility] [address] [id number] Mikalrena Dempsey CREATININEon 09-05-2019 Creatinine [Mass/Vol] mg/dL Normal >=60 The [facility] Comment on above: Performed By: #### Agustin WHITE UAMIC #### [facility] [address] [place], [place] [id number] Mikal Roselyn Creatinine [Mass/Vol] 0.65 mg/dL Normal 0.52-1.04 The [facility] Comment on above: Performed By: #### Agustin WHITE UAMIC #### [facility] [address] [place] [address] Mikal Roselyn CREATININE CLEARon 0 CREA CLEARANCE 136.03 ml/min Critically high 75.00-115.00 [facility] Comment on above: Performed By: #### Agustin WHITE UAMIC #### [facility] [address] [place] [address] Mikal Roselyn CREA, 24 HR UR 1287.99 mg/24 hr Normal 800.00-1, 800. 00 The [facility] Comment on above: Performed By: #### Agustin WHITE UAMIC #### [facility] [address] [place], [place] [address] Mikal Roselyn UR TOT VOL 900 ml/24 HR Normal The [facility] Comment on above: Performed By: #### Agustin WHITE UAMIC #### [facility] [address] [place] [address] Mikal Roselyn URINE CREAT 143.11 mg/dL Normal 20.00-300.00 The [facility] Comment on above: Performed By: #### Agustin WHITE UAMIC #### [facility] [address] [place], [place] [address] Mikal Roselyn GLUCOSE - 1HRon 09-05-2019 Glucose [Mass/Vol] 94 mg/dL Normal 74-106 The [facility] Comment on above: Performed By: #### C BC #### [facility] [address] [place] [address] Mikal Dempsey LDHon 09-05-2019 LDH 137 U/L Normal 122-222 [facility] Comment on above: Performed By: #### C BC #### [facility] [address] [place], [place] [address] Mikal Dempsey PROTEIN 24HR URINEon 020 T PROT, 24 HR UR 127.8 mg/24 hr Normal 42.0-225.0 [facility] Comment on above: Performed By: #### D CHRISTOPHER UAMIC #### [facility] [address] [place], [place] [address] Mikalrena Dempsey UR PROT 14.2 mg/dL Critically high <=12.0 The [facility] Comment on above: Performed By: #### D CHRISTOPHER UAMIC #### [facility] [address] [place], [place] [address] Mikal Roselyn SGOTon 09-05-2019 AST [Catalytic activity/Vol] 14 U/L Normal 14-36 The [facility] Comment on above: Performed By: #### D CHRISTOPHER UAMIC #### [facility] [address] [place], [place] [address] Mikal Dempsey SGPTon 09-05-2019 ALT [Catalytic activity/Vol] 26 U/L Normal 9-52 [facility] Comment on above: Performed By: #### C BC #### [facility] [address] [place], [place] [address] Mikalrena Dempsey TSHon 09-05-2019 TSH Qn 0.807 uIU/mL Normal 0.470-4.680 The [facility] Comment on above: Performed By: #### C BC #### [facility] [address] [place], [place] [address] Mikal Roselyn TSH Qn SEE BELOW Normal The [facility] Comment on above: Result Comment: <0.3 4 UIU/ml HYPERTHYROID 0.34-5.60 UIU/ml EUTHYROID >5.60 UIU/ml HYPOTHYROID Performed By: #### C BC #### [facility] [address] [place] [address] Mikal Dempsey URIC ACID SERUMon 09-05-2019 Urate [Mass/Vol] 3.5 mg/dL Normal 2.5-6.2 The [facility] Comment on above: Performed By: #### C BC #### [facility] [address] [place] [address] Mikal Dempsey HEP B SURFACE ANTIGEN SCREEN on 09-01-2019 HBsAg Screen Negative Normal Negative [facility] Comment on above: Performed By: #### H BSANS #### [facility] [address] [place] [address] Mikal Dempsey HEPATITIIS C VIRUS ANTIBODYo n 09-01-2019 Hep C Virus Ab <0.1 Normal 0.0-0.9 [facility] Comment on above: Result Comment: Nega tive: < 0.8 Indeterminate: 0.8 - 0.9 Positive: > 0.9 . The CDC recommends that a positive HCV antibody result be followed up with a HCV Nucleic Acid Amplification test (613179). Performed By: #### Greg CV #### [facility] [address] [place] [address] Mikal Dempsey HGB(ELECTP) FRACTION PROFILE on 09-01-2019 Hemoglobin (Bld) [Mass/Vol] 97.5 % Normal 96.4-98.8 [facility] Comment on above: Performed By: #### Agustin WHITE UAMIC #### [facility] [address] [place] [address] Mikalrena Dempsey Hgb A2 2.5 % Normal 1.8-3.2 The [facility] Comment on above: Performed By: #### D CHRISTOPHER UAMIC #### [facility] [address] [place] [address] Mikalrena Dempsey Hgb C 0.0 % Normal 0.0 The [facility] Comment on above: Performed By: #### Agustin WHITE UAMIC #### [facility] [address] [place] [address] Mikal Roselyn Hgb F 0.0 % Normal 0.0-2.0 The [facility] Comment on above: Performed By: #### D CHRISTOPHER UAMIC #### [facility] [address] [id number] Mikal Dempsey Hgb S 0.0 % Normal 0.0 [facility] Comment on above: Performed By: #### D MARLEN WHITEMIC #### [facility] [address] [id number] Mikalrena Dempsey Hgb Solubility Negative Normal Negative The [facility] Comment on above: Performed By: #### D CHRISTOPHER UAMIC #### [facility] [address] [address] Mikalrena Dempsey Hgb Variant Normal The [facility] Comment on above: Performed By: #### D CHRISTOPHER UAMIC #### [facility] [address] [place] [address] Mikal Roselyn Interpretation Comment Normal The [facility] Comment on above: Result Comment: Norm al adult hemoglobin present. Performed By: #### D CHRISTOPHER UAMIC #### [facility] [address] [place] [address] Mikal Dempsey HIV 1 AND 2 WITH REFLEXon HIV Screen 4th Generation wRfx Non Reactive Normal Non Reactive The [facility] Comment on above: Performed By: #### H IV12 #### [facility] [address] [place] [address] Mikal Dempsey RPR QUANTon 09-01-2019 Rapid Plasma Reagin, Quant Non Reactive Normal NonRea<1:1 The [facility] Comment on above: Performed By: #### D CHRISTOPHER UAMIC #### [facility] [address] [place] [address] Mikal Dempsey RUBELLA AB IGGon 09-01-2019 Rubella Antibodies, IgG 1.49 index Normal Immune >0.99 [facility] Comment on above: Result Comment: Non- immune <0.90 Equivocal 0.90 - 0.99 Immune >0.99 Performed By: #### D CHRISTOPHER UAMIC #### [facility] [address] [place] [address] Mikal Dempsey VARICELLA IGG ABon 02-20-202 0 Varicella Zoster IgG <135 Critically low Immune >165 [facility] Comment on above: Result Comment: Nega tive <135 Equivocal 135 - 165 Positive >165 A positive result generally indicates exposure to the pathogen or administration of specific immunoglobulins, but it is not indication of active infection or stage of disease. Performed By: #### D RUGRPD, UAMIC #### [facility] [address] [place] [address] Mikal Roselyn TYPE AND SCREENon 08-31-2019 TYPE AND SCREEN Negative Normal [facility] Comment on above: Performed By: #### T NS #### [facility] [address] [place], [place] [address] Mikal Roselyn CBC AUTO DIFFon 08-30-2019 Basophils (Bld) [#/Vol] 0.1 103/ul Normal 0.0-0.1 [facility] Comment on above: Performed By: #### C BC #### [facility] [address] [place], [place] [address] Mikal Roselyn Basophils/100 WBC (Bld) 0.7 % Normal 0.2-2.0 [facility] Comment on above: Performed By: #### C BC #### [facility] [address] [place], [place] [address] Mikal Roselyn Eosinophils (Bld) [#/Vol] 0.0 103/ul Normal 0.0-0.7 [facility] Comment on above: Performed By: #### C BC #### [facility] [address] [place], [place] [address] Mikal Roselyn Eosinophils/100 WBC (Bld) 0.3 % Critically low 0.9-7.0 [facility] Comment on above: Performed By: #### C BC #### [facility] [address] [place], [place] [address] Mikal Roselyn Erythrocyte distribution width (RBC) [Ratio] 13.2 % Normal 11.0-15.0 [facility] Comment on above: Performed By: #### C BC #### [facility] [address] [place], [place] [address] Mikal Roselyn Hematocrit (Bld) [Volume fraction] 43.0 % Normal 36.0-48.0 [facility] Comment on above: Performed By: #### C BC #### [facility] [address] [place], [place] [address] Mikal Roselyn Hemoglobin (Bld) [Mass/Vol] 14.1 g/dL Normal 12.0-16.0 [facility] Comment on above: Performed By: #### C BC #### [facility] [address] [place], [place] [address] Mikal Roselyn IG # 0.02 10e3/ul Normal 0.00-0.03 [facility] Comment on above: Performed By: #### C BC #### [facility] [address] [place] [address] Mikal Roselyn IG % 0.3 % Normal 0.0-0.5 [facility] Comment on above: Performed By: #### C BC #### [facility] [address] [place] [address] Mikal Roselyn Lymphocytes (Bld) [#/Vol] 1.7 103/ul Normal 1.2-3.8 [facility] Comment on above: Performed By: #### C BC #### [facility] [address] [place], [place] [address] Mikal Roselyn Lymphocytes/100 WBC (Bld) 23.4 % Normal 20.5-60.0 [facility] Comment on above: Performed By: #### C BC #### [facility] [address] [place], [place] [address] Mikalrena Dempsey MANUAL DIFF REQ NO Normal [facility] Comment on above: Performed By: #### C BC #### [facility] [address] [place], [place] [address] Mikal Roselyn MCH (RBC) [Entitic mass] 29.3 pg Normal 26.7-34.0 [facility] Comment on above: Performed By: #### C BC #### [facility] [address] [place], [place] [address] Mikal Roselyn MCHC (RBC) [Mass/Vol] 32.8 g/dL Normal 29.9-35.2 [facility] Comment on above: Performed By: #### C BC #### [facility] [address], [place] [address] Mikal Roselyn MCV (RBC) [Entitic vol] 89.4 fL Normal 81.0-99.0 The [facility] Comment on above: Performed By: #### C BC #### [facility] [address], [place] [address] Mikal Roselyn Monocytes (Bld) [#/Vol] 0.6 103/ul Normal 0.3-0.8 [facility] Comment on above: Performed By: #### C BC #### [facility] [address] [place], [place] [address] Mikal Roselyn Monocytes/100 WBC (Bld) 8.6 % Normal 1.7-12.0 [facility] Comment on above: Performed By: #### C BC #### [facility] [address], [place] [address] Mikal Roselyn Neutrophils (Bld) [#/Vol] 4.9 103/ul Normal 1.4-6.5 The [facility] Comment on above: Performed By: #### C BC #### [facility] [address] [place] [address] Mikal Roselyn Neutrophils/100 WBC (Bld) 66.7 % Normal 43.0-75.0 The [facility] Comment on above: Performed By: #### C BC #### [facility] [address], [place] [address] Mikal Roselyn Platelet mean volume (Bld) [Entitic vol] 9.7 fL Normal 9.5-13.5 The [facility] Comment on above: Performed By: #### C BC #### [facility] [address], [place] [address] Mikal Roselyn Platelets (Bld) [#/Vol] 304 103/ul Normal 150-450 The [facility] Comment on above: Performed By: #### C BC #### [facility] [address], [place] [address] Mikal Roselyn RBC (Bld) [#/Vol] 4.81 106/ul Normal 4.20-5.40 The [facility] Comment on above: Performed By: #### C BC #### [facility] [address] [place] [address] Mikalrena Dempsey WBC (Bld) [#/Vol] 7.4 103/ul Normal 4.0-11.[address] [facility] Comment on above: Performed By: #### C BC #### [facility] [address] [place] [address] Mikal Roselyn CULTURE URINEon 08-30-2019 CULTURE URINE Culture Observations : Light growth of mixed genital sierar.No potential pathogens seen. Normal [facility] Comment on above: Performed By: #### U RCX #### [facility] [address] [place] [address] Mikalrena Hensleyen DRUG SCREEN RAPID (URINE)on 08-30-2019 AMP Negative Normal NEGATIVE [facility] Comment on above: Performed By: #### D MARYBETHD, UAMIC #### [facility] [address] [place] [address] Mikal Roselyn BAR Negative Normal NEGATIVE [facility] Comment on above: Performed By: #### D RUGRPD, UAMIC #### [facility] [address] [place] [address] Mikal Roselyn BUP Negative Normal NEGATIVE [facility] Comment on above: Performed By: #### D RUGRPD, UAMIC #### [facility] [address] [place] [address] Mikal Roselyn BZO Negative Normal NEGATIVE The [facility] Comment on above: Performed By: #### D RUGRPD, UAMIC #### [facility] [address] [place] [address] Mikal Roselyn MADDY Positive Normal NEGATIVE [facility] Comment on above: Performed By: #### D RUGJOHND, UAMIC #### [facility] [address] [place] [address] Mikal Roselyn CUT-OFFS SEE BELOW Normal [facility] Comment on above: Result Comment: AMP (Amphetamine): [...] Performed By: #### D CHRISTOPHER UAMIC #### [facility] [address] [place] [address] Mikal Roselyn DRUG CUT HEADER DRUG CLASS TEST SYST EM CUT-OFF CONCENTRATIONS ARE FOLLOWS: Normal The [facility] Comment on above: Performed By: #### D CHRISTOPHER UAMIC #### [facility] [address] [place] [address] Mikal Roselyn mAMP Negative Normal NEGATIVE The [facility] Comment on above: Performed By: #### Agustin WHITE UAMIC #### [facility] [address] [place] [address] Mikal Roselyn MTD Negative Normal NEGATIVE The [facility] Comment on above: Performed By: #### Agustin WHITE UAMIC #### [facility] [address] [place] [address] Mikal Roselyn OPI Negative Normal NEGATIVE The [facility] Comment on above: Performed By: #### D CHRISTOPHER UAMIC #### [facility] [address] [place] [address] Mikal Roselyn OXY Negative Normal NEGATIVE The [facility] Comment on above: Performed By: #### D CHRISTOPHER UAMIC #### [facility] [address] [place] [address] Mikal Roselyn PCP Negative Normal NEGATIVE The [facility] Comment on above: Performed By: #### Agustin WHITE UAMIC #### [facility] [address] [place] [address] Mikal Roselyn PPX Negative Normal NEGATIVE The [facility] Comment on above: Performed By: #### Agustin WHITE UAMIC #### [facility] [address] [address] Mikal Dempsey TCA Negative Normal NEGATIVE The [facility] Comment on above: Performed By: #### D CHRISTOPHER UAMIC #### [facility] [address] [id number] Mikal Dempsey THC Negative Normal NEGATIVE [facility] Comment on above: Performed By: #### D CHRISTOPHER UAMIC #### [facility] [address] [id number] Mikal Dempsey GLYCOHEMOGLOBIN A1Con 2019 Glucose [Mass/Vol] 85 mg/dL Normal [facility] Comment on above: Performed By: #### A 1C #### [facility] [address] [place] [address] Mikal Dempsey HbA1c (Bld) [Mass fraction] 4.6 % Normal <=6.0 The [facility] Comment on above: Performed By: #### A 1C #### [facility] [address] [place] [address] Mikal Dempsey PREG QUANT HCGon 08-30-2019 HCG QUANT 17865.00 mIU/mL Normal The [facility] Comment on above: Performed By: #### P REGQNT #### [facility] [address] [place] [address] Mikal Dempsey HCG RANGE SEE BELOW Normal The [facility] Comment on above: Result Comment: 5-50 0-1 WEEK 40-300 1-2 WEEKS 100-1,000 2-3 WEEKS 500-6,000 3-4 WEEKS 5,000-200,000 1-2 MONTHS 10,000-100,000 2-3 MONTHS 3,000-50,000 2ND TRIMESTER 1,000-50,000 3RD TRIMESTER Performed By: #### P REGQNT #### [facility] [address] [address] Mikal Dempsey UA RANDOM W/MICROSCOPICon Bacteria LM.HPF (Urine sed) [#/Area] SMALL Normal NONE SEEN The [facility] Comment on above: Performed By: #### D CHRISTOPHER UAMIC #### [facility] [address] [address] Mikal Roselyn Bilirubin [Mass/Vol] Negative Normal NEGATIVE The [facility] Comment on above: Performed By: #### D CHRISTOPHER UAMIC #### [facility] [address] [address] Mikal Roselyn BLOOD Negative Normal NEGATIVE The [facility] Comment on above: Performed By: #### Agustin WHITE UAMIC #### [facility] [address] [address] Mikal Roselyn CAST NONE SEEN Normal NONE SEEN The [facility] Comment on above: Performed By: #### D CHRISTOPHER UAMIC #### [facility] [address] [place] [address] Mikal Roselyn Clarity (U) CLEAR Normal The [facility] Comment on above: Performed By: #### D CHRISTOPHER UAMIC #### [facility] [address] [place] [address] Mikal Roselyn Color (U) YELLOW Normal YELLOW The [facility] Comment on above: Performed By: #### D CHRISTOPHER UAMIC #### [facility] [address] [place] [address] Mikal Roselyn Crystals LM Nom (Urine sed) NONE SEEN Normal NONE SEEN [facility] Comment on above: Performed By: #### Agustin WHITE UAMIC #### [facility] [address] [place] [address] Mikal Roselyn Epithelial cells LM.HPF (Urine sed) [#/Area] FEW Normal The [facility] Comment on above: Performed By: #### D CHRISTOPHER UAMIC #### [facility] [address] [place] [address] Mikal Roselyn Glucose [Mass/Vol] Negative Normal NEGATIVE [facility] Comment on above: Performed By: #### Agustin WHITE, UAMIC #### [facility] [address] [place] [address] Mikal Roselyn Ketones Ql (U) Negative Normal NEGATIVE [facility] Comment on above: Performed By: #### D CHRISTOPHER UAMIC #### [facility] [address] [id number] Mikal Roselyn MUCOUS MODERATE Normal NONE SEEN The [facility] Comment on above: Performed By: #### D CHRISTOPHER UAMIC #### [facility] [address] [place], [place] [address] Mikal Roselyn Nitrite Ql (U) Negative Normal NEGATIVE [facility] Comment on above: Performed By: #### D CHRISTOPHER UAMIC #### [facility] [address] [place], [place] [address] Mikal Roselyn pH (Bld) 6.0 Normal 5-9 [facility] Comment on above: Performed By: #### D CHRISTOPHER UAMIC #### [facility] [address] [place], [place] [address] Mikal Roselyn Protein [Mass/Vol] Negative Normal [facility] Comment on above: Performed By: #### D CHRISTOPHER UAMIC #### [facility] [address] [place], [place] [address] Mikal Roselyn RBC (Bld) [#/Vol] 0-2 Normal 0-2 [facility] Comment on above: Performed By: #### D CHRISTOPHER UAMIC #### [facility] [address] [place], [place] [address] Mikal Roselyn SPEC GRAVITY 1.025 Normal 1.005-<=1.025 [facility] Comment on above: Performed By: #### D CHRISTOPHER UAMIC #### [facility] [address] [place], [place] [address] Mikal Roselyn Urobilinogen Qn (U) 0.2 EU/dl Normal [facility] Comment on above: Performed By: #### D CHRISTOPHER UAMIC #### [facility] [address] [place], [place] [address] Mikal Roselyn WBC (Bld) [#/Vol] Negative Normal NEGATIVE [facility] Comment on above: Performed By: #### D CHRISTOPHER UAMIC #### [facility] [address] [place], [place] [address] Mikal Roselyn WBC (Bld) [#/Vol] 2-5 Normal NONE SEEN [facility] Comment on above: Performed By: #### D CAYDEN WHITE #### [facility] [address], [place] [address] Mikal Dempsey Vital Signs Date Time Vital Sign Value Performing Clinician Faci lity 08-17-2023 10:08-0500 Body mass index (BMI) [Ratio] 29.5 kg/m2 Lizbeth KEARNS Work Phone: [facility] 08-17-2023 10:08-0500 Body weight 70.82 kg Lizbeth KEARNS Work Phone: [facility] [facility] 08-17-2023 10:08-0500 Diastolic blood pressure 72 mm[Hg] Lizbeth KEARNS Work Phone: [facility] 08-17-2023 10:08-0500 Systolic blood pressure 116 mm[Hg] Lizbeth KEARNS Work Phone: [facility] Encounters Encounter Date Encounter Type Care Provider Facility Start: 10-27-2023 End: 10-27-2023 ambulatory ALEXANDER YAEL Not Available Start: 10-20-2023 End: 10-20-2023 ambulatory ALEXANDER YAEL Not Available Start: 10-12-2023 End: 10-12-2023 ambulatory ALEXANDER YAEL Not Available Start: 10-05-2023 End: 10-05-2023 ambulatory LIZBETH DELONTE Not Available Start: 09-17-2023 End: 09-17-2023 ambulatory ALEXANDER YAEL Not Available Start: 09-03-2023 End: 09-03-2023 ambulatory ALEXANDER YAEL Not Available Start: 08-17-2023 End: 08-17-2023 ambulatory LIZBETH DELONTE Not Available Start: 08-17-2023 End: 08-17-2023 Office outpatient visit 15 minutes Lizbeth KEARNS Work Phone: [facility] Comment on above: Third trimester preg herlinda Start: 08-03-2023 End: 08-03-2023 ambulatory ALEXANDER YAEL Not Available Start: 07-09-2023 End: 07-09-2023 Emergency department patient visit Baldo Fair Facility:[facility] Start: 07-02-2023 End: 07-02-2023 ambulatory ALEXANDER MAIO Not Available Start: 06-23-2023 End: 06-23-2023 Emergency department patient visit Caden Lauren Facility:[facility] Start: 05-28-2023 End: 05-28-2023 ambulatory LIZBETH MARTEL Not Available Start: 03-21-2023 End: 03-21-2023 Emergency department patient visit Caden Lauren Facility:[facility] Start: 04-17-2020 Patient encounter procedure SHAHNAZ CORONA Facility:[facility] Start: 04-10-2020 End: 04-13-2020 Evaluation and management of inpatient ALEXANDER MAIO Facility:[facility] Start: 04-05-2020 End: 04-06-2020 Patient encounter procedure SHAHNAZ CORONA Facility:[facility] Start: 04-03-2020 End: 04-03-2020 Patient encounter procedure CAREN WHARTON Facility:[facility] Start: 03-27-2020 End: 03-27-2020 Patient encounter procedure SHAHNAZ CORONA Facility:[facility] Start: 03-21-2020 End: 03-21-2020 Patient encounter procedure SHAHNAZ CORONA Facility:[facility] Start: 03-21-2020 End: 03-21-2020 Patient encounter procedure SHAHNAZ CORONA Facility:[facility] Start: 03-12-2020 End: 03-13-2020 Patient encounter procedure SHAHNAZChristelle CORONA Facility:[facility] Start: 02-22-2020 End: 02-23-2020 Patient encounter procedure SHAHNAZChristelle CORONA Facility:[facility] Start: 02-19-2020 End: 02-19-2020 Patient encounter procedure CAREN WHARTON Facility:[facility] Start: 02-18-2020 End: 02-19-2020 Patient encounter procedure CAREN WHARTON Facility:[facility] Start: 01-03-2020 End: 01-04-2020 Patient encounter procedure SHAHNAZChristelle CORONA Facility:[facility] Start: 12-02-2019 End: 12-03-2019 Patient encounter procedure SHAHNAZ CORONA Facility:[facility] Start: 10-03-2019 End: 10-03-2019 Patient encounter procedure SHAHNAZChristelle CORONA Facility:[facility] Start: 09-07-2019 End: 09-08-2019 Patient [...] PM EST Routine [facility] [address] [place] [id number] Alexander [address], [address] [place] [address] [facility] Payers Date Payer Category Payer Medicaid [id number] 2022 Medicaid [employer] [employer] [id number] 2022-Present [address] [place] [address] [id number] 1997 Unknown [id number] 2.16840.1.636994.3.579.2.593 1997 Unknown [id number] 2.16840.1.157329.3.579.2.593 1997 Unknown [id number] 2.16840.1.494471.3.579.2.593 1997 Unknown [id number] 2.840.1.267813.3.579.2.593 1997 Unknown [id number] 2.16.840.1.335825.3.579.2.593 1997 Unknown [id number] 2.16.840.1.690859.3.579.2.593 1997 Unknown [id number] 2.16.840.1.197179.3.579.2.593 1997 Unknown [id number] 2.16.840.1.202096.3.579.2.593 1997 Unknown [id number] 2.16.840.1.965421.3.579.2.593 1997 Unknown [id number] 2.16.840.1.531645.3.579.2.593 1997 Unknown [id number] 2.16.840.1.715885.3.579.2.593 1997 Unknown [id number] 2.16.840.1.535883.3.579.2.593 1997 Unknown [id number] 2.16.840.1.563689.3.579.2.593 1997 Unknown [id number] 2.16.840.1.664533.3.579.2.593 1997 Unknown [id number] 2.16.840.1.138769.3.579.2.593 1997 Unknown [id number] 2.16.840.1.354149.3.579.2.593 1997 Unknown [id number] 2.16.840.1.674811.3.579.2.593 1997 Unknown [id number] 2.16.840.1.735471.3.579.2.718 1997 Unknown [id number] 2.16.840.1.590528.3.579.2.718 1997 Unknown [id number] 2.16.840.1.744275.3.579.2.718 1997 Unknown [id number] 2.16.840.1.874949.3.579.2.9 1997 Unknown [id number] 2.16.840.1.677759.3.579.2.9 1997 Unknown [id number] 2.16.840.1.793640.3.579.2.9 1997 Unknown [id number] 2.16.840.1.029470.3.579.2.1258 1997 Unknown [id number] 2.16.840.1.455941.3.579.2.9 1997 Unknown [id number] 2.16.840.1.555204.3.579.2.9 1997 Unknown [id number] 2.16.840.1.837759.3.579.2.9 1997 Unknown [id number] 2.16.840.1.052291.3.579.2.1258 1997 Unknown [id number] 2.16.840.1.294478.3.579.2.9 1997 Unknown [id number] 2.16.840.1.617428.3.579.2.9 1959 Self-pay [id number] 1959 Unknown [id number] Social History Date Type Detail Facility Start: 04-17-2023 Tobacco smoking stat [facility] Never smoked tobacco [facility] Start: 08-17-2023 [...] of: URMILA Ghosh documented in this encounter [facility] Clinical Note 07-09-2023 Note Date & Type [...] to help relieve symptoms, such as: ? Ttfy-bkn-fekymsq cold medicines. ? Cough suppressants. Coughing is [...] other clear broths. General instructions ? Take aesw-wux-uwenzxn and prescription medicines only as told by [...] and water are not available, use hand public health nutritionist. ? Avoid touching your mouth, face, eyes, [...] symptoms may be (more content not included)... [facility] Clinical Note 06-23-2023 Note Date & [...] ? Medicines that treat allergies (antihistamines). ? Wtba-ajb-xbxfvho pain relievers. ? If caused by bacteria, [...] home: Medicines ? Take, use, or apply nnwk-ipf-brlnjoy and prescription medicines only as told by [...] and water are not available, use hand public health nutritionist. ? Do not smoke. Avoid being around people who are smoking (secondhand smoke). ? Keep all follow-up visits. This is important. Contact a health care provider if: ? You have a fever. (more content not included)... [facility] Clinical Note 03-21-2023 Note Date & [...] ? Low-calorie sports drinks. ? Eat bland, dzki-rc-tesnin foods in small amounts as you are able, such as: ? Bananas. ? Applesauce. ? Rice. ? Low-fat (lean) meats. ? Micro. ? Crackers. ? Avoid drinking fluids that have a lot of sugar or caffeine in them. This includes energy drinks, sports drinks, and soda. ? Avoid alcohol. ? Avoid spicy or fatty foods. General instructions ? Take rfmv-mhg-rkalsab and prescription medicines only as told by your doctor. ? Drink enough fluid to keep your pee (urine) pale yellow. ? Wash your hands often with soap and water for at least 20 seconds. If you cannot use soap and water, use hand public health nutritionist. ? Make sure that everyone in your [...] doctor about eating and drinking. ? Take rfnr-qsk-mnbcsjx and prescription medicines only as told by your doctor. ? Contact your doctor if your symptoms get worse or you have new symptoms. ? Keep all follow-up visits. This information is not intended to replace advice given to you by your health care provider. Make sure you discuss any questions you have with your health care provider. Document Revised: 01/03/2022 Document Reviewed: 01/03/2022 [employer] Patient Education ? 2022 [employer]. Obstetrics and Gynecology Warning Signs During During [...] back. ? Shortne (more content not included)... [facility] Evaluation note Note Date & Type [...] DATE CREATED AUTHOR AUTHOR'S ORGANIZ ATION 07/23/2023 [facility] DATE CREATED AUTHOR AUTHOR'S ORGANIZ ATION 10/28/2023 [facility] EPIC Reason for Visit [...] BE BASED ON THE PRIMARY CLINICAL RECORDS. [facility] [employer] [facility]. provides no warranty or guarantee of the accuracy or completeness of information in this document.
[2023-11-02 05:45] LABS: Hematocrit 33.5 % (36.0-48.0); Hemoglobin 10.1 g/dL (12.0-16.0); Mean Corpuscular HGB Conc 30.1 g/dL (29.9-35.2); Mean Corpuscular Hemoglobin 23.1 pg (26.7-34.0); Mean Corpuscular Volume 76.5 fL (81.0-99.0); Mean Platelet Volume 10.6 fL (9.5-13.5); Platelet Count 271 10^3/uL (150-450); Red Blood Count 4.38 10^6/uL (4.20-5.40); Red Cell Distribution Width 15.1 % (11.0-15.0); White Blood Count 7.8 10^3/uL (4.0-11.0)
[2023-11-02 06:07] LABS: Amphetamine Screen Urine NEGATIVE (NEGATIVE); Barbiturates Screen Urine NEGATIVE (NEGATIVE); Benzodiazepines Screen Urine NEGATIVE (NEGATIVE); Buprenorphine Screen Urine NEGATIVE (NEGATIVE); Cannabinoid Screen Urine NEGATIVE (NEGATIVE); Cocaine Screen Urine NEGATIVE (NEGATIVE); Methadone Screen Urine NEGATIVE (NEGATIVE); Methamphetamines Screen Urine NEGATIVE (NEGATIVE); Opiate Screen Urine NEGATIVE (NEGATIVE); Oxycodone Screen Urine NEGATIVE (NEGATIVE); Phencyclidine Screen Urine NEGATIVE (NEGATIVE); Tricyclic Antidepressant Urine NEGATIVE (NEGATIVE)
[2023-11-02] MEDS: OXYTOCIN/0.9 % SODIUM CHLORIDE 10 UNITS/500 ML PLAST..BAG 6 UNIT IV (06:15)
[2023-11-02] MEDS: 0.9 % SODIUM CHLORIDE 1,000 ML 125 ML IV (06:15)
[2023-11-02] MEDS: FENTANYL CITRATE/PF 100 MCG/2 ML VIAL EPIDURAL (09:41)
[2023-11-02] MEDS: ROPIVACAINE HCL/PF 400 MG/200 ML PREMIX 6 MG EPIDURAL (09:41)
[2023-11-02] MEDS: EPHEDRINE SULFATE 50 MG/ML VIAL IV (10:01)
[2023-11-02] MEDS: ROPIVACAINE HCL 0.2% PF 40 MG/20 ML VIAL EPIDURAL (10:23)
[2023-11-02] MEDS: CARBOPROST TROMETHAMINE 250 MCG/ML 1 ML VIAL IM (11:57)
[2023-11-02] MEDS: OXYTOCIN/0.9 % SODIUM CHLORIDE 20 UNITS/1,000 ML PLAST..BAG 125 UNIT IV (12:41)
--- NOTE | 2023-11-02 12:57 | PM.OBPRCVD ---
Procedure Intrapartal events: None Induction method: per pitocin protocol Delivery augmentation: rupture of membranes and pitocin Delivery monitor: external FHT and external uterine Route of delivery: Episiotomy Description: none L&D Laceration Description: perineal - 1st degree Delivery repair: Vicryl Estimated blood loss (mL): 495 Anesthesia type: Epidural Disposition: floor Infant Delivery date: 11/02/23 Gender: female presentation: vertex Placental delivery description: Spontaneous cord description: 3 Vessels
[2023-11-02] MEDS: GLYCERIN/WITCH HAZEL PADS 1 PAD TOPICAL (16:17)
[2023-11-02] MEDS: IBUPROFEN 600 MG TABLET PO (16:17)
[2023-11-02] MEDS: BENZOCAINE/MENTHOL 85 GRAM SPRAY BOTTLE 1 APPLIC TOPICAL (16:18)
--- NOTE | 2023-11-02 19:24 | W.PC.ACHO ---
Registration Status: ADM IN Primary Language: Preferred Language: German Active Medications Generic Name Dose Route Start Last Admin Trade Name Freq PRN Reason Stop Dose Admin Acetaminophen 650 mg 11/02/23 12:59 Acetaminophen 325 Mg Tablet PO Q6H PRN Mild Pain Al Hydroxide/Mg Hydroxide 2,400 mg 11/02/23 12:59 Magnesium Hydroxide 2,400 Mg/10 Ml Oral.Susp PO Q6H PRN Dyspepsia Benzocaine/Menthol 1 applic 11/02/23 12:59 11/02/23 16:18 Benzocaine/Menthol 85 Gram [place] Bottle TOPICAL 1 applic Q2H PRN Administration Pain Carboprost Tromethamine 250 mcg 11/02/23 04:49 11/02/23 11:57 Carboprost Tromethamine 250 Mcg/Ml 1 Ml Vial IM 11/03/23 13:00 250 mcg Q15M PRN Administration Bleeding Diphtheria/Pertussis/Tetanus Vacc 0.5 ml 11/04/23 09:00 Adacel Diph,Pertuss(Acell),Tet Vac/Pf 0.5 Ml Adult Syringe IM 11/04/23 09:01 .ONCE ONE Docusate Sodium 100 mg 11/03/23 09:00 Docusate Sodium 100 Mg Capsule PO BID MANSI Sodium Chloride 1,000 mls @ 125 mls/hr 11/02/23 05:00 11/02/23 06:15 Sodium Chloride 0.9% 1,000 Ml IV 125 mls/hr .Q8H MANSI Administration Ibuprofen 600 mg 11/02/23 12:59 11/02/23 16:17 Ibuprofen 600 Mg Tablet PO 600 mg Q6H PRN Administration Moderate Pain Measles/Mumps/Rubella Vaccine Live 0.5 ml 11/04/23 09:00 Measles,Mumps,Rubella Vacc/Pf 0.5 Ml Vial SQ 11/04/23 09:01 .ONCE ONE Methylergonovine Maleate 0.2 mg 11/02/23 04:49 Methylergonovine Maleate 0.2 Mg/Ml Ampule IM 11/03/23 13:00 ONCE PRN Uterine Contractility/Contract Methylergonovine Maleate 0.2 mg 11/02/23 04:49 Methylergonovine Maleate 0.2 Mg Tablet PO 11/03/23 13:00 Q4H PRN Uterine Contractility/Contract Misoprostol 600 mcg 11/02/23 04:49 Misoprostol 100 Mcg Tablet PO 11/03/23 13:00 ONCE PRN Uterine Bleeding Misoprostol 800 mcg 11/02/23 04:49 Misoprostol 100 Mcg Tablet SL 11/03/23 13:00 ONCE PRN Uterine Bleeding Misoprostol 1,000 mcg 11/02/23 04:49 Misoprostol 100 Mcg Tablet PA 11/03/23 13:00 ONCE PRN Uterine Bleeding Ondansetron HCl 4 mg 11/02/23 04:49 Ondansetron Pf 4 Mg/2 Ml Vial IV Q6H PRN Nausea And Vomiting Ondansetron HCl 4 mg 11/02/23 04:49 Ondansetron 4 Mg Rapdis Tablet SL Q6H PRN Nausea And Vomiting Oxytocin 10 unit 11/02/23 04:49 Oxytocin 10 Unit/Ml Vial IM 11/02/23 21:00 ONCE PRN Bleeding Senna 17.2 mg 11/02/23 20:00 Sennosides 8.6 Mg Tablet PO QHS PRN Constipation Simethicone 80 mg 11/02/23 12:59 Simethicone 80 Mg Tab.Chew PO QID PRN Abdominal Distention Temazepam 15 mg 11/02/23 12:59 Temazepam 15 Mg Capsule PO QHS PRN Sleep Witch Tiffani/Glycerin 1 pad 11/02/23 12:59 11/02/23 16:17 Glycerin/Witch Tiffani Pads TOPICAL 1 pad Q2H PRN Administration Pain Diet Category Date Time Status Regular Consistency Diet Diet 11/02/23 12:59 Active Consults Category Date Time Status Consult to Anesthesiology Routine Cons 11/02/23 Ordered IV Insertion/Site Date of IV Line Insertion [20g 11/02/23 right Forearm] IV Insertion Time [20g right 05:38 Forearm] Neurology Patient orientation (short person,place,time,situation list) Respiratory Oxygen Delivery Method Room Air Oxygen Delivery Method Room Air
[2023-11-03] VITALS (21 sets, daily range): BP systolic 103–125; BP diastolic 63–81; PULSE 75–97; TEMP 36.6–37.2
[2023-11-03] MEDS: IBUPROFEN 600 MG TABLET PO ×4 (00:26→21:30)
[2023-11-03 06:18] LABS: Basophils Absolute Auto 0.1 10^3/uL (0.0-0.1); Basophils Percent Auto 0.6 % (0.2-2.0); Eosinophils Absolute Auto 0.1 10^3/uL (0.0-0.7); Eosinophils Percent Auto 1.2 % (0.9-7.0); Immature Granulocytes Abs Auto 0.03 10^3/uL (0.00-0.03); Immature Granulocytes Pct Auto 0.3 % (0.0-0.5); Lymphocytes Percent Auto 27.1 % (20.5-60.0); Mean Corpuscular HGB Conc 29.7 g/dL (29.9-35.2); Mean Corpuscular Hemoglobin 22.9 pg (26.7-34.0); Mean Corpuscular Volume 77.1 fL (81.0-99.0); Mean Platelet Volume 9.6 fL (9.5-13.5); Monocytes Absolute Auto 1.2 10^3/uL (0.3-0.8); Monocytes Percent Auto 11.3 % (1.7-12.0); Neutrophils Absolute Auto 6.5 10^3/uL (1.4-6.5); Neutrophils Percent Auto 59.5 % (43.0-75.0); Platelet Count 192 10^3/uL (150-450); Red Blood Count 2.71 10^6/uL (4.20-5.40); Red Cell Distribution Width 15.3 % (11.0-15.0); White Blood Count 10.9 10^3/uL (4.0-11.0)
[2023-11-03 06:27] LABS: Hematocrit 20.9 % (36.0-48.0); Hemoglobin 6.2 g/dL (12.0-16.0)
--- NOTE | 2023-11-03 07:33 | PM.OBPN ---
OB - PN: Subj Subjective Patient comments: no complaints and pain well controlled status: doing well Exam Constitutional Vital Signs, click to edit/add: Last Vital Signs Temp 98.5 F 11/03/23 00:24 Pulse 80 11/03/23 00:22 Resp 16 11/03/23 00:24 BP 111/67 11/03/23 00:22 O2 Del Method Room Air 11/03/23 00:24 Documenting provider has reviewed patient's vital signs: yes Common normals: no apparent distress Respiratory Common normals: normal respiratory effort and clear to auscultation bilaterally Cardio Common normals: regular rate and regular rhythm GI Common normals: Normal to inspection, nondistended, normoactive bowel sounds present Extremity Common normals: no clubbing, cyanosis or edema and no calf tenderness Results Labs Labs: Short CBC 11/03/23 Range/Units 05:58 WBC 10.9 (4.0-11.0) 10^3/uL Hgb 6.2 L* D (12.0-16.0) g/dL Hct 20.9 L* (36.0-48.0) % Plt Count 192 (150-450) 10^3/uL OB - PN: A/P Assessment and Plan (1) Acute blood loss anemia: Assessment and Plan: transfuse 1unit prbcs Plan - Vaginal Delivery day: 1 Plan: routine care Time Spent with Patient Time: Total time spent is greater than 50% in coordination of care (as documented) at patient's floor/unit and/or counseling patient: Total time spent with greater than 50% in coordination of care (as documented) at patient's floor/unit and/or counseling patient: less than 15 minutes
[2023-11-03] MEDS: DOCUSATE SODIUM 100 MG CAPSULE PO ×2 (08:48→21:31)
[2023-11-04] MEDS: IBUPROFEN 600 MG TABLET PO ×2 (04:59→10:51)
--- NOTE | 2023-11-04 08:01 | P.OBPN_ITS ---
OB - PN: Subj Subjective Patient comments: no complaints and pain well controlled [place] status: doing well Exam Constitutional Vital Signs, click to edit/add: Last Vital Signs Temp 98.2 F 11/03/23 23:43 Pulse 94 H 11/03/23 23:43 Resp 16 11/03/23 09:06 BP 115/66 11/03/23 23:43 O2 Del Method Room Air 11/03/23 15:00 Documenting provider has reviewed patient's vital signs: yes Common normals: no apparent distress Respiratory Common normals: normal respiratory effort and clear to auscultation bilaterally Cardio Common normals: regular rate and regular rhythm GI Common normals: Normal to inspection, nondistended, normoactive bowel sounds present Extremity Common normals: no calf tenderness OB - PN: A/P Assessment and Plan (1) Acute blood loss anemia: Plan - Vaginal Delivery day: 2 Plan: routine care, discharge home and follow up 6 weeks Time Spent with Patient Time: Total time spent is greater than 50% in coordination of care (as documented) at patient's floor/unit and/or counseling patient: Total time spent with greater than 50% in coordination of care (as documented) at patient's floor/unit and/or counseling patient: less than 15 minutes
[2023-11-04 08:20] VITALS: TEMP 36.9
[2023-11-04 08:31] VITALS: BP 115/72; PULSE 81
[2023-11-04 08:44] LABS: Basophils Percent Auto 0.5 % (0.2-2.0); Eosinophils Absolute Auto 0.1 10^3/uL (0.0-0.7); Eosinophils Percent Auto 1.9 % (0.9-7.0); Immature Granulocytes Abs Auto 0.04 10^3/uL (0.00-0.03); Immature Granulocytes Pct Auto 0.5 % (0.0-0.5); Lymphocytes Absolute Auto 1.8 10^3/uL (1.2-3.8); Lymphocytes Percent Auto 23.7 % (20.5-60.0); Mean Corpuscular HGB Conc 29.9 g/dL (29.9-35.2); Mean Corpuscular Hemoglobin 23.4 pg (26.7-34.0); Mean Corpuscular Volume 78.3 fL (81.0-99.0); Mean Platelet Volume 9.7 fL (9.5-13.5); Monocytes Absolute Auto 0.8 10^3/uL (0.3-0.8); Monocytes Percent Auto 10.6 % (1.7-12.0); Neutrophils Absolute Auto 4.7 10^3/uL (1.4-6.5); Neutrophils Percent Auto 62.8 % (43.0-75.0); Platelet Count 169 10^3/uL (150-450); Red Blood Count 2.86 10^6/uL (4.20-5.40); Red Cell Distribution Width 15.5 % (11.0-15.0); White Blood Count 7.4 10^3/uL (4.0-11.0)
[2023-11-04 08:55] LABS: Hematocrit 22.4 % (36.0-48.0); Hemoglobin 6.7 g/dL (12.0-16.0)
[2023-11-04] MEDS: DOCUSATE SODIUM 100 MG CAPSULE PO (08:58)
== END 2023-11-04 11:30 | disposition home or self-care (01) | DRG 560 ==
PROVIDERS: Admitting Provider Obstetrics & Gynecology; Visit Provider Obstetrics & Gynecology
DX: O70.0 First degree perineal laceration during delivery (principal); O90.81 Anemia of the puerperium; D62 Acute posthemorrhagic anemia; Z3A.39 39 weeks gestation of pregnancy; Z37.0 Single live birth
CPT/HCPCS: 36415; 36430; 51702; 59050; 59410; 80307; 85025; 85027; 86850; 86900; 86901; 96372; 96374; 96375; 96376; P9016